=== PATIENT | female | born 1940 | race Caucasian/White ===

== ENCOUNTER → 2018-02-18 14:44 | Outpatient (CLI) | payer MEDICARE, OTHER, SELFPAY ==
[2018-02-18 15:05] LABS: Mucous, Urine 0 SEEN /hpf (<or=2+)
[2018-02-18 16:01] LABS: Color, Urine Yellow (Yellow); Glucose, Dipstick Normal (Normal); Ketone-Dipstick Negative (Negative); Leukocyte Esterase-Dipstick 500 /ul (Negative); Nitrite-Dipstick Positive (Negative); Occult Blood-Urine 10 /ul (Negative); Protein-Dipstick Negative (Negative); Urine Bilirubin Dipstick Negative (Negative); Urine Clarity Sl. Cloudy (Clear); Urine Urobilinogen Normal (Normal)
[2018-02-18 16:30] LABS: Bacteria 2+ /hpf (None Seen); Red Blood Cells-Urine 0-5 SEEN /hpf (0-5); Squamous Epithelial Cells - UA 0-5 SEEN /hpf (5-10); White Blood Cells 25-50 SEEN /hpf (0-5)
[2018-02-18 18:15] LABS: ALB/GLOB Ratio 0.9 RATIO (0.9-2.4); AST(SGOT) 17 U/L (15-37); Alanine Aminotransfer ALT/SGPT 16 U/L (13-56); Albumin, Serum 3.6 g/dL (3.2-5.0); Alkaline Phosphatase 96 U/L (45-117); Anion Gap 5 (5-15); BUN 27 mg/dL (7-18); BUN/Creat Ratio 20.9 RATIO (10-20); Calcium,Total 8.8 mg/dL (8.5-10.1); Chloride 106 mmol/L (98-107); Creatinine, Serum 1.29 mg/dL (0.55-1.02); EST Glomerular Filtration Rate 42 mL/min (>60); Est Glom Filt Rate - Afr Amer 51 mL/min (>60); Glucose 91 mg/dL (74-106); Potassium 4.3 mmol/L (3.5-5.1); Protein, Total 7.6 g/dL (6.4-8.2); Sodium Level 140 mmol/L (136-145)
== END ==
PROVIDERS: Visit Provider Obstetrics & Gynecology
DX: R35.1 Nocturia (principal)
CPT/HCPCS: 36415; 80053; 81001

== ENCOUNTER → 2018-02-21 16:18 | Outpatient (CLI) | payer MEDICARE, OTHER, SELFPAY | PROVIDERS: Visit Provider Obstetrics & Gynecology | DX: R30.0 Dysuria (principal) | CPT/HCPCS: 87086; 87088; 87186 ==

== ENCOUNTER → 2018-04-15 14:30 | Outpatient (CLI) | payer MEDICARE, OTHER, SELFPAY ==
--- NOTE | 2018-04-15 14:30 | DT_ITS ---
This patient was seen during an EMR downtime April 14, 2018 - April 21, 2018. This patient may have a combination of paper and electronic documentation or all paper documentation. All documentation is viewable within the e-chart portion of [facility] for each patient visit.
--- NOTE | 2018-04-15 14:30 | DT_ITS ---
This patient was seen during an EMR downtime April 14, 2018 - April 21, 2018. This patient may have a combination of paper and electronic documentation or all paper documentation. All documentation is viewable within the e-chart portion of [facility] for each patient visit.
== END ==
PROVIDERS: Family Provider Family Medicine; PCP Family Medicine; Visit Provider Obstetrics & Gynecology
DX: N39.0 Urinary tract infection, site not specified (principal)
CPT/HCPCS: 87086; 87088; 87186

== ENCOUNTER → 2018-08-22 12:05 | Outpatient (CLI) | payer MEDICARE, OTHER, SELFPAY ==
[2018-08-22 12:09] LABS: Lyme Ab Screen Interpretation REF LAB
[2018-08-22 14:07] LABS: Absolute Lymphocyte Count 1.11 X10^3/ul (0.83-4.51); Absolute Neutrophil Count 3.5 X10^3/uL (2.0-7.7); Basophil# 0.02 X10^3/uL; Basophil% 0.4 % (0-1); Eosinophil# 0.03 X10^3/uL; Eosinophils% 0.6 % (0-5); Hematocrit 40.8 % (37-47); Hemoglobin 13.2 g/dl (12.0-15.0); Lymphocyte # 1.11 X10^3/ul (4.0); Lymphocyte % 22.1 % (19-41); Mean Corp Hgb Conc 32.4 g/gl (32-36); Mean Corpuscular Hgb 29.8 pg (27.0-32.0); Mean Corpuscular Volume 92.1 fL (81-99); Mean Platelet Vol. 10.8 fl (6.2-12.0); Monocyte# 0.41 X10^3/uL; Monocyte% 8.2 % (0-10); Neutrophil # 3.45 X10^3/uL (2.7-7.7); Neutrophil % 68.5 % (47-70); Platelet Count 222 K/mm3 (150-450); RBC Distribution Width CV 13.1 % (11.6-14.6); RBC Distribution Width SD 43.7 fl (35.1-43.9); Red Blood Count 4.43 M/mm3 (4.2-5.4)
[2018-08-22 14:08] LABS: POSITIVE COUNT NO; POSITIVE DIFFERENTIAL NO; POSITIVE MORPHOLOGY NO
[2018-08-22 14:31] LABS: Vitamin B12 470 pg/mL (211-911); Vitamin D,25 Hydroxy 105.6 ng/mL (29.95-100.01)
[2018-08-22 14:33] LABS: ALB/GLOB Ratio 0.9 RATIO (0.9-2.4); AST(SGOT) 23 U/L (15-37); Alanine Aminotransfer ALT/SGPT 20 U/L (13-56); Albumin, Serum 3.8 g/dL (3.2-5.0); Alkaline Phosphatase 85 U/L (45-117); Anion Gap 8 (5-15); BUN 33 mg/dL (7-18); BUN/Creat Ratio 13.5 RATIO (10-20); Calcium,Total 8.6 mg/dL (8.5-10.1); Chloride 104 mmol/L (98-107); Creatinine, Serum 2.45 mg/dL (0.55-1.02); EST Glomerular Filtration Rate 20 mL/min (>60); Est Glom Filt Rate - Afr Amer 24 mL/min (>60); Globulin 4.2 g/dL (2.2-4.2); Glucose 98 mg/dL (74-106); Potassium 4.9 mmol/L (3.5-5.1); Sodium Level 136 mmol/L (136-145); Thyroid Stim Hormone (TSH) 1.66 uIU/mL (0.358-3.74)
[2018-08-29 09:48] LABS: Lyme Scn Total Ab w/Rflx 1.03 ISR (0.00-0.90)
== END ==
PROVIDERS: Family Provider Family Medicine; PCP Family Medicine; Referring Provider Family Medicine; Visit Provider Family Medicine
DX: R53.83 Other fatigue (principal); R21 Rash and other nonspecific skin eruption
CPT/HCPCS: 36415; 80053; 82306; 82607; 84443; 85025; 86618

== ENCOUNTER → 2018-08-25 10:11 | Outpatient (CLI) | payer MEDICARE, OTHER, SELFPAY ==
[2018-08-25 12:56] LABS: Anion Gap 9 (5-15); BUN 35 mg/dL (7-18); BUN/Creat Ratio 18.4 RATIO (10-20); Calcium,Total 9.3 mg/dL (8.5-10.1); Chloride 102 mmol/L (98-107); EST Glomerular Filtration Rate 27 mL/min (>60); Est Glom Filt Rate - Afr Amer 33 mL/min (>60); Glucose 110 mg/dL (74-106); Potassium 4.3 mmol/L (3.5-5.1); Sodium Level 137 mmol/L (136-145)
== END ==
PROVIDERS: Family Provider Family Medicine; PCP Family Medicine; Referring Provider Family Medicine; Visit Provider Family Medicine
DX: R94.4 Abnormal results of kidney function studies (principal)
CPT/HCPCS: 36415; 80048

== ENCOUNTER → 2018-08-27 08:28 | Outpatient (CLI) | payer MEDICARE, OTHER, SELFPAY ==
--- NOTE | 2018-08-27 08:31 | ECHOD_ITS ---
Reason For Study: Cardiomyopathy Procedure This was a 2D Doppler, Color Flow transthoracic echocardiogram. Exam performed in department. Left Ventricle Normal LV size. The estimated ejection fraction is 40 %. Mild to moderate global left ventricular systolic dysfunction. Stage 1 diastolic dysfunction. Compared to previous study, the left ventricular systolic function has worsened.. No regional wall motion abnormalities noted. Right Ventricle Normal RV size. Normal systolic function. Atria Normal left atrium. Normal right atrium. Mitral Valve Normal mitral valve. Mild (1+) eccentric mitral valve insufficiency. Tricuspid Valve Normal tricuspid valve. Mild (1+) tricuspid valve insufficiency. Pulmonary artery systolic pressure is 35 mmHg. Aortic Valve Normal aortic valve. Trisinus/trileaflet aortic valve. Pulmonic Valve Normal pulmonic valve. Great Vessels Normal aortic root. The pulmonary artery is normal size. Normal inferior vena cava. Pericardium/Pleural No pericardial effusion. MMode/2D Measurements & Calculations LVIDd: 4.0 cm IVSd: 0.94 cm Ao root diam: 3.3 cm LVIDs: 3.1 cm LVPWd: 0.90 cm LA dimension: 3.1 cm RVDd: 3.3 cm FS: 22.8 % LAV(MOD-bp): 34.6 ml LVAd ap4: 22.8 cm2 SV(MOD-sp4): 26.0 ml LAV(MOD-bp) Indexed: 22.0 ml/m2 EDV(MOD-sp4): 61.7 ml LAV(MOD-sp2): 30.8 ml EDV(sp4-el): 63.8 ml LAV(MOD-sp4): 32.0 ml LVAs ap4: 16.0 cm2 ESV(MOD-sp4): 35.8 ml ESV(sp4-el): 36.5 ml EF(MOD-sp4): 42.1 % EF(sp4-el): 42.8 % SV(sp4-el): 27.3 ml LA A4 area: 13.7 cm2 RA A4 area: 12.2 cm2 Time Measurements MV dec time: 0.35 sec Doppler Measurements & Calculations MV E max eric: 44.8 cm/sec Lat Peak E' Eric: 4.2 cm/sec Med Peak E' Eric: 4.5 cm/sec MV A max eric: 85.2 cm/sec E/E' lat: 10.7 E/E' med: 10.1 MV E/A: 0.53 MV V2 max: 82.2 cm/sec MV P1/2t max eric: 46.9 cm/sec Ao V2 max: 80.4 cm/sec MV max P.7 mmHg MV P1/2t: 101.7 msec Ao max P.6 mmHg MV V2 mean: 35.7 cm/sec MV dec slope: 135.0 cm/sec2 Ao V2 mean: 57.9 cm/sec MV mean P.62 mmHg MVA(P1/2t): 2.2 cm2 Ao mean P.5 mmHg MV V2 VTI: 24.4 cm Ao V2 VTI: 18.1 cm LV V1 max: 79.6 cm/sec PA V2 max: 55.6 cm/sec PI dec slope: 122.5 cm/sec2 LV V1 max P.5 mmHg LV V1 mean P.1 mmHg LV V1 mean: 47.5 cm/sec LV V1 VTI: 16.8 cm TR max eric: 279.3 cm/sec TR max P.2 mmHg Interpretation Summary Normal LV size. The estimated ejection fraction is 40 %. Mild to moderate global left ventricular systolic dysfunction. Mild (1+) eccentric mitral valve insufficiency. Mild (1+) tricuspid valve insufficiency. Stage 1 diastolic dysfunction. Compared to previous study, the left ventricular systolic function has worsened.. Ordering Physician: Venkatesh Mitchell Referring Physician: Venkatesh Cox Performed By: David Jean RCS
== END ==
PROVIDERS: Family Provider Family Medicine; PCP Family Medicine; Referring Provider Family Medicine; Visit Provider Family Medicine
DX: R55 Syncope and collapse (principal); I42.9 Cardiomyopathy, unspecified
CPT/HCPCS: 93306

== ENCOUNTER → 2018-10-24 10:22 | Outpatient (CLI) | payer MEDICARE, OTHER, SELFPAY ==
[2018-10-24 14:06] LABS: Anion Gap 8 (5-15); BUN 22 mg/dL (7-18); BUN/Creat Ratio 22.2 RATIO (10-20); Calcium,Total 8.6 mg/dL (8.5-10.1); Chloride 105 mmol/L (98-107); Creatinine, Serum 0.99 mg/dL (0.55-1.02); EST Glomerular Filtration Rate 58 mL/min (>60); Est Glom Filt Rate - Afr Amer 70 mL/min (>60); Glucose 85 mg/dL (74-106); Potassium 3.7 mmol/L (3.5-5.1); Sodium Level 141 mmol/L (136-145)
[2018-10-24 14:09] LABS: Vitamin D,25 Hydroxy 73.1 ng/mL (29.95-100.01)
--- OUTSIDE RECORDS SUMMARY | 2018-12-10 01:20 | XMS RPT_ITS ---
:1940 Author Organization [facility] Care Team Providers Name Role Phone Venkatesh Cox Attending Unavailable Venkatesh Cox Referring Unavailable Venkatesh Cox Primary Care Unavailable Melissa Fine Attending Unavailable Melissa Fine Attending Unavailable Melissa Fine Attending Unavailable Melissa Fine Referring Unavailable Venkatesh Cox Primary Care Unavailable Venkatesh Mitchell Attending Unavailable Venkatesh Mitchell Referring Unavailable Venkatesh Cox Primary Care Unavailable Venkatesh Mitchell Attending Unavailable Venkatesh Mitchell Referring Unavailable Venkatesh Cox Primary Care Unavailable Venkatesh Mitchell Attending Unavailable Venkatesh Mitchell Referring Unavailable Venkatesh Cox Primary Care Unavailable Jona Eddy Attending Unavailable Venkatesh Mitchell Referring Unavailable PROBLEMS PROBLEMS DATE TYPE CONDITION / CODE ATTENDING STATUS SOURCE 05/07/2018 Unknown N39.0 - Urinary Melissa Fine [employer] tract infection, Community site not Hospital specified / Repository N39.0(ICD-10) 02/21/2018 Unknown R30.0 - Dysuria Melissa Fine [employer] / R30.0(ICD-10) [facility] Repository 02/18/2018 Unknown R35.1 - Nocturia Melissa Fine [employer] / R35.1(ICD-10) [facility] Repository PROCEDURES PROCEDURES No Procedure Records FoundRESULTS RESULTS BASIC METABOLIC Collected: 10/24/2018 Status: F Source: [place] PROFILE (BMP) 10:27 AM [facility] REPOSITORY TYPE CODE TESTS RESULT OUT OF RANGE REFERENCE UNITS LAB L501.0100 74-106 mg/dL Normal GLU 85 Result Comment: Please note revised GLUCOSE reference range effective 2017. LAB L501.1000 7-18 mg/dL High BUN 22 LAB L501.1100 0.55-1.02 mg/dL Normal CREAT,SERUM 0.99 Result Comment: The validity of the calculated GFR AND GFRAA in patients over 70 years has not been determined. Clinical correlation is essential. LAB L501.1110 >60 mL/min Low EST GFR 58 Result Comment: Non- GFR Calc LAB L501.1115 >60 mL/min Normal EST GFR - AA 70 Result Comment: GFR Calc LAB L501.1300 10-20 RATIO High BUN/CRE 22.2 LAB L501.2200 8.5-10.1 mg/dL CA Normal 8.6 LAB L501.5300 136-145 mmol/L NA Normal 141 LAB L501.5600 3.5-5.1 mmol/L K Normal 3.7 LAB L501.5900 98-107 mmol/L CL Normal 105 LAB L501.6100 21.0-32.0 mmol/L Normal CO2 28.0 LAB L501.6200 5-15 Normal GAP 8 Performed By: #### L500.2500, L506.1000 #### [facility] [address] [place], [address] VITAMIN D,25 HYDROXY Collected: 10/24/2018 Status: F Source: [place] 10:27 AM [facility] REPOSITORY TYPE CODE TESTS RESULT OUT OF RANGE REFERENCE UNITS LAB L506.1000 29.95-100.01 ng/mL Normal Vitamin D 73.1 25-OH Result Comment: Vitamin D 25(OH) Status Range Deficiency <20 ng/mL (50nmol/L) Insuffciency 20 - 30 ng/mL (50 - 75 nmol/L) Sufficiency 30 - 100 ng/mL (75 - 250 nmol/L) Toxicity >100 ng/mL (>250 nmol/L) Performed By: #### L500.2500, L506.1000 #### [facility] [address] [place], [address] ECHOCARDIOGRAM COMPLETE Observed: 08/27/2018 Status: F Source: [place] 10:37 AM [facility] REPOSITORY [facility] Cardiovascular Services [address] [place] [address] Echo Complete 08/27/18 0904 MR#: [id number] Acct: [id number] Name: MONTSERRAT WEBB Rep #: [id number] : 1940 78 From: Jona Eddy MD Attending Dr: Venkatesh Mitchell MD Status: REG CLI Ordering Dr: Venkatesh Mitchell MD Date: 08/27/18 Location: [facility] Sex: F C Admitted: Reason For Study: Cardiomyopathy Procedure This was a 2D Doppler, Color Flow transthoracic echocardiogram. Exam performed in department. Left Ventricle Normal LV size. The estimated ejection fraction is 40 %. Mild to moderate global left ventricular systolic dysfunction. Stage 1 diastolic dysfunction. Compared to previous study, the left ventricular systolic function has worsened.. No regional wall motion abnormalities noted. Right Ventricle Normal RV size. Normal systolic function. Atria Normal left atrium. Normal right atrium. Mitral Valve Normal mitral valve. Mild (1+) eccentric mitral valve insufficiency. Tricuspid Valve Normal tricuspid valve. Mild (1+) tricuspid valve insufficiency. Pulmonary artery systolic pressure is 35 mmHg. Aortic Valve Normal aortic valve. Trisinus/trileaflet aortic valve. Pulmonic Valve Normal pulmonic valve. Great Vessels Normal aortic root. The pulmonary artery is normal size. Normal inferior vena cava. Pericardium/Pleural No pericardial effusion. MMode/2D Measurements AND Calculations LVIDd: 4.0 cm IVSd: 0.94 cm Ao root diam: 3.3 cm LVIDs: 3.1 cm LVPWd: 0.90 cm LA dimension: 3.1 cm RVDd: 3.3 cm FS: 22.8 % LAV(MOD-bp): 34.6 ml LVAd ap4: 22.8 cm2 SV(MOD-sp4): 26.0 ml LAV(MOD-bp) Indexed: 22.0 ml/m2 EDV(MOD-sp4): 61.7 ml LAV(MOD-sp2): 30.8 ml EDV(sp4-el): 63.8 ml LAV(MOD-sp4): 32.0 ml LVAs ap4: 16.0 cm2 ESV(MOD-sp4): 35.8 ml ESV(sp4-el): 36.5 ml EF(MOD-sp4): 42.1 % EF(sp4-el): 42.8 % SV(sp4-el): 27.3 ml LA A4 area: 13.7 cm2 RA A4 area: 12.2 cm2 Time Measurements MV dec time: 0.35 sec Doppler Measurements AND Calculations MV E max eric: 44.8 cm/sec Lat Peak E' Eric: 4.2 cm/sec Med Peak E' Eric: 4.5 cm/sec MV A max eric: 85.2 cm/sec E/E' lat: 10.7 E/E' med: 10.1 MV E/A: 0.53 MV V2 max: 82.2 cm/sec MV P1/2t max eric: 46.9 cm/sec Ao V2 max: 80.4 cm/sec MV max P.7 mmHg MV P1/2t: 101.7 msec Ao max P.6 mmHg MV V2 mean: 35.7 cm/sec MV dec slope: 135.0 cm/sec2 Ao V2 mean: 57.9 cm/sec MV mean P.62 mmHg MVA(P1/2t): 2.2 cm2 Ao mean P.5 mmHg MV V2 VTI: 24.4 cm Ao V2 VTI: 18.1 cm LV V1 max: 79.6 cm/sec PA V2 max: 55.6 cm/sec PI dec slope: 122.5 cm/sec2 LV V1 max P.5 mmHg LV V1 mean P.1 mmHg LV V1 mean: 47.5 cm/sec LV V1 VTI: 16.8 cm TR max eric: 279.3 cm/sec TR max P.2 mmHg Interpretation Summary Normal LV size. The estimated ejection fraction is 40 %. Mild to moderate global left ventricular systolic dysfunction. Mild (1+) eccentric mitral valve insufficiency. Mild (1+) tricuspid valve insufficiency. Stage 1 diastolic dysfunction. Compared to previous study, the left ventricular systolic function has worsened.. 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 criteria. Please note revised GLUCOSE reference range effective 2017. LAB L501.1000 7-18 mg/dL High BUN 35 LAB L501.1100 0.55-1.02 mg/dL High CREAT,SERUM 1.90 Result Comment: The validity of the calculated GFR AND GFRAA in patients over 70 years has not been determined. Clinical correlation is essential. LAB L501.1110 >60 mL/min Low EST GFR 27 Result Comment: Non- GFR Calc LAB L501.1115 >60 mL/min Low EST GFR - AA 33 Result Comment: GFR Calc LAB L501.1300 10-20 RATIO Normal BUN/CRE 18.4 LAB L501.2200 8.5-10.1 mg/dL CA Normal 9.3 LAB L501.5300 136-145 mmol/L NA Normal 137 LAB L501.5600 3.5-5.1 mmol/L K Normal 4.3 LAB L501.5900 98-107 mmol/L CL Normal 102 LAB L501.6100 21.0-32.0 mmol/L Normal CO2 26.0 LAB L501.6200 5-15 Normal GAP 9 Performed By: #### L500.2500 #### [facility] [address] [place], [address] CBC W/DIFF, AUTOMATED Collected: 08/22/2018 Status: F Source: [place] 12:07 PM [facility] REPOSITORY TYPE CODE TESTS RESULT OUT OF RANGE REFERENCE UNITS LAB L100.1000 4.4-11.0 K/mm3 Normal WBC 5.0 LAB L100.1200 4.2-5.4 M/mm3 Normal RBC 4.43 LAB L100.1300 12.0-15.0 g/dl Normal HGB 13.2 LAB L100.1400 37-47 % Normal HCT 40.8 LAB L100.1500 81-99 fL Normal MCV 92.1 LAB L100.1600 27.0-32.0 pg Normal MCH 29.8 LAB L100.1700 32-36 g/gl Normal MCHC 32.4 LAB L100.1810 11.6-14.6 % Normal RDW CV 13.1 LAB L100.1820 35.1-43.9 fl Normal RDW SD 43.7 LAB L100.1900 150-450 K/mm3 Normal PLT 222 LAB L100.2000 6.2-12.0 fl Normal MPV 10.8 LAB L100.2100 47-70 % Normal NEUT% 68.5 LAB L100.2200 19-41 % Normal LY% 22.1 LAB L100.2300 0-10 % Normal MONO% 8.2 LAB L100.2400 0-5 % Normal EO% 0.6 LAB L100.2500 0-1 % Normal BASO% 0.4 LAB L100.2550 0.0-0.9 % Normal IM GRAN % 0.200 Result Comment: IG% - Immature Granulocytes (promyelocytes, myelocytes and metamyelocytes) > 1% indicates that a LEFT SHIFT is Present. LAB L100.2620 2.0-7.7 X10 3/uL Normal Absolute Neut 3.5 LAB L100.2720 0.83-4.51 X10 3/ul Normal Absolute Lymph 1.11 Performed By: #### L100.0100, L503.0105, L506.1000, L500.4050, L501.9520 #### [facility] [address] [place], [address] #### L7000.5300 #### [facility] (refer to report for specific site) refer to report for address and phone number VITAMIN B12 Collected: 08/22/2018 Status: F Source: [place] 12:07 PM [facility] REPOSITORY TYPE CODE TESTS RESULT OUT OF RANGE REFERENCE UNITS LAB L503.0105 211-911 pg/mL Normal Vitamin B12 470 Performed By: #### L100.0100, L503.0105, L506.1000, L500.4050, L501.9520 #### [facility] [address] [facility] [address] [place], [address] #### L7000.5300 #### [facility] (refer to report for specific site) refer to report for address and phone number VITAMIN D,25 HYDROXY Collected: 08/22/2018 Status: F Source: [place] 12:07 PM [facility] REPOSITORY TYPE CODE TESTS RESULT OUT OF REFERENCE UNITS RANGE LAB L506.1000 29.95-100.01 ng/mL High Vitamin D 105.6 25-OH Result Comment: Vitamin D 25(OH) Status Range Deficiency <20 ng/mL (50nmol/L) Insuffciency 20 - 30 ng/mL (50 - 75 nmol/L) Sufficiency 30 - 100 ng/mL (75 - 250 nmol/L) Toxicity >100 ng/mL (>250 nmol/L) Evidence suggests that patients undergoing fluorescein dye angiography can retain small amounts of fluorescein in the body for up to 48 to 72 hours post-treatment. In the cases of patients with renal insufficiency, retention could be much longer. Samples containing fluorescein can produce falsely elevated values when tested with the Advia Centaur Vitamin D assay. With fluorescein interference, observed Vitamin D values can be as high as >150 ng/mL (>375 nmol/L). Samples should be resubmitted post fluorescein clearance to ensure there is no interference with Vitamin D test results. Performed By: #### L100.0100, L503.0105, L506.1000, L500.4050, L501.9520 #### [facility] [address] [place], [place], [address] #### L7000.5300 #### [facility] (refer to report for specific site) refer to report for address and phone number COMPREHENSIVE METABOLIC Collected: 08/22/2018 Status: F Source: [facility] 12:07 PM [facility] REPOSITORY TYPE CODE TESTS RESULT OUT OF RANGE REFERENCE UNITS LAB L501.0100 74-106 mg/dL Normal GLU 98 Result Comment: Please note revised GLUCOSE reference range effective 2017. LAB L501.1000 7-18 mg/dL High BUN 33 LAB L501.1100 0.55-1.02 mg/dL High CREAT,SERUM 2.45 Result Comment: The validity of the calculated GFR AND GFRAA in patients over 70 years has not been determined. Clinical correlation is essential. LAB L501.1110 >60 mL/min Low EST GFR 20 Result Comment: Non- GFR Calc LAB L501.1115 >60 mL/min Low EST GFR - AA 24 Result Comment: GFR Calc LAB L501.1300 10-20 RATIO Normal BUN/CRE 13.5 LAB L501.1500 6.4-8.2 g/dL T Normal PROT 8.0 LAB L501.1800 3.2-5.0 g/dL Normal ALB 3.8 LAB L501.1950 2.2-4.2 g/dL Normal GLOB 4.2 LAB L501.2000 0.9-2.4 RATIO Normal A/G 0.9 LAB L501.2200 8.5-10.1 mg/dL CA Normal 8.6 LAB L501.4100 15-37 U/L Normal AST 23 LAB L501.4305 45-117 U/L Normal ALK P 85 LAB L501.4405 13-56 U/L Normal ALT 20 LAB L501.4600 0.20-1.00 mg/dL T Normal BILI 0.40 LAB L501.5300 136-145 mmol/L NA Normal 136 LAB L501.5600 3.5-5.1 mmol/L K Normal 4.9 LAB L501.5900 98-107 mmol/L CL Normal 104 LAB L501.6100 21.0-32.0 mmol/L Normal CO2 24.0 LAB L501.6200 5-15 Normal GAP 8 Performed By: #### L100.0100, L503.0105, L506.1000, L500.4050, L501.9520 #### [facility] [address] [place], [place], [id number] #### L7000.5300 #### [facility] (refer to report for specific site) refer to report for address and phone number THYROID STIM HORMONE Collected: 08/22/2018 Status: F Source: [place] ([facility]) 12:07 PM [facility] REPOSITORY TYPE CODE TESTS RESULT OUT OF RANGE REFERENCE UNITS LAB L501.9520 0.358-3.74 uIU/mL Normal TSH 1.66 Performed By: #### L100.0100, L503.0105, L506.1000, L500.4050, L501.9520 #### [facility] [address], [place], [id number] #### L7000.5300 #### [facility] (refer to report for specific site) refer to report for address and phone number LYME SCREEN W/REFLEX Collected: 08/22/2018 Status: F Source: [place] WB 12:07 PM [facility] REPOSITORY TYPE CODE TESTS RESULT OUT OF RANGE REFERENCE UNITS LAB L7000.5400 0.00-0.90 ISR High LYME SCN 1.03 AB Result Comment: Negative <0.91 Equivocal 0.91 - 1.09 Positive >1.09 LAB L7000.5500 Normal LYME SCN REF INTERP LAB Performed By: #### L100.0100, L503.0105, L506.1000, L500.4050, L501.9520 #### [facility] [address] [place], [place], [id number] #### L7000.5300 #### [facility] (refer to report for specific site) refer to report for address and phone number DOWNTIME REPORT Observed: 05/01/2018 Status: F Source: [place] 2:46 PM [facility] REPOSITORY [facility] Medical Records Department [address] [place] [address] Downtime Report MR#: [id number] Acct: [id number] Name: MONTSERRAT WEBB Rep #: [id number] : 1940 77 From: Daniel Cox PCP: Venkatesh Cox MD Status: REG CLI This patient was seen during an EMR downtime April 14, 2018 - April 21, 2018. This patient may have a combination of paper and electronic documentation or all paper documentation. All documentation is viewable within the e-chart portion of [facility] for each patient visit. DOWNTIME REPORT Observed: 05/01/2018 Status: F Source: [place] 2:32 PM [facility] REPOSITORY [facility] Medical Records Department [address] [place] [address] Downtime Report MR#: [id number] Acct: [id number] Name: MONTSERRAT WEBB Rep #: [id number] : 1940 77 From: Daniel Cox PCP: Venkatesh Cox MD Status: REG CLI This patient was seen during an EMR downtime April 14, 2018 - April 21, 2018. This patient may have a combination of paper and electronic documentation or all paper documentation. All documentation is viewable within the e-chart portion of [facility] for each patient visit. Observed: 04/16/2018 Status: F Source: [place] CULTURE, URINE 2:30 PM [facility] REPOSITORY RESULT(S) PREVIOUSLY REPORTED ON MANUAL REQUISITION DURING DOWNTIME. Urine Culture Copy of report sent to Infection Control Printer [id number] 04/18/18 9519 [address]. RESULTS FAXED TO DR FINE 04/17/18 ORGANISM 1: Presumptive E. coli [place] Count >100,000 MARKER ESBL producing Organism Presumptive E. coli: REACTION Amoxacillin/Clavulanic Acid $ 16 I Ampicillin $ >=32 R Ampicillin/Sulbactam $ >=32 R Cefazolin $ >=64 R Cefepime $ >=64 R Ceftriaxone $ >=64 R Ciprofloxacin $ 1 S ESBL Positive + Ertapenim $$$ <=0.5 S Gentamicin $ <=1 S Imipenem *NF <=0.25 S Levofloxacin $ 1 S Piperacillin/Tazobactam $$ <=4 S Tobramycin $ <=1 S Trimethoprim/Sulfametho $ >=320 R (NF) indicates non-formulary drug at [facility]. Approval by Infectious Disease Specialist required before non-formulary drugs may be ordered and/or dispensed. Performed By: #### M100.0650 #### [facility] [address] [place], [address] Observed: 02/21/2018 Status: F Source: [place] CULTURE, URINE 1:00 PM [facility] REPOSITORY Urine Culture ORGANISM 1: Presumptive E. coli [place] Count >100,000 Presumptive E. coli: REACTION Amoxacillin/Clavulanic Acid $ 4 S Ampicillin $ 4 S Ampicillin/Sulbactam $ <=2 S Cefazolin $ <=4 S Cefepime $ <=1 S Ceftriaxone $ <=1 S Ciprofloxacin $ <=0.25 S ESBL - Ertapenim $$$ <=0.5 S Gentamicin $ <=1 S Imipenem *NF <=0.25 S Levofloxacin $ <=0.12 S Piperacillin/Tazobactam $$ <=4 S Tobramycin $ <=1 S Trimethoprim/Sulfametho $ <=20 S (NF) indicates non-formulary drug at [facility]. Approval by Infectious Disease Specialist required before non-formulary drugs may be ordered and/or dispensed. Performed By: #### M100.0650 #### [facility] [address] [facility] [place], [address] URINALYSIS, COMPLETE Collected: 02/18/2018 Status: F Source: [place] 3:03 PM [facility] REPOSITORY Order Comment: Comments: CULTURE ONLY IF INDICATED PER ORDER. How was Urine Obtained? CLEAN CATCH TYPE CODE TESTS RESULT OUT OF RANGE REFERENCE UNITS LAB L400.3000 Yellow COLOR Normal Yellow LAB L400.3050 Clear Normal CLARITY Sl. Cloudy LAB L400.3200 Normal mg/dl Normal GLUCOSE, UR Normal LAB L400.3300 Negative mg/dL Normal BILIRUBIN URINE Negative LAB L400.3400 Negative mg/dl Normal KETONE UR Negative LAB L400.3465 1.002-1.030 Normal SP.GR. DIPSTX 1.010 LAB L400.3550 5.0 - 8.0 pH UR Normal 6.0 LAB L400.3600 Negative mg/dl PROT Normal DIPSTX Negative LAB L400.3700 Normal mg/dl Normal UROBILI Normal LAB L400.3750 Negative High NITRITE UR Positive LAB L400.3780 Negative /ul High 10 OCCULT BLOOD-UR LAB L400.3800 Negative /ul High LEUK ESTERASE 500 LAB L400.4050 0-5 /hpf WBC Normal 25-50 SEEN LAB L400.4100 0-5 /hpf Normal RBC-UA 0-5 SEEN LAB L400.4150 5-10 /hpf SQUAM Normal EPI 0-5 SEEN LAB L400.4300 None Seen /hpf 2+ Normal BACTERIA LAB L400.4350 <or=2+ /hpf 0 Normal MUCUS, URINE SEEN Performed By: #### L400.0001 #### [facility] [address] [place], [place], [address] COMPREHENSIVE METABOLIC Collected: 02/18/2018 Status: F Source: [facility] 2:55 PM [facility] REPOSITORY TYPE CODE TESTS RESULT OUT OF RANGE REFERENCE UNITS LAB L501.0100 74-106 mg/dL Normal GLU 91 Result Comment: Please note revised GLUCOSE reference range effective 2017. LAB L501.1000 7-18 mg/dL High BUN 27 LAB L501.1100 0.55-1.02 mg/dL High CREAT,SERUM 1.29 Result Comment: The validity of the calculated GFR AND GFRAA in patients over 70 years has not been determined. Clinical correlation is essential. LAB L501.1110 >60 mL/min Low EST GFR 42 Result Comment: Non- GFR Calc LAB L501.1115 >60 mL/min Low EST GFR - AA 51 Result Comment: GFR Calc LAB L501.1300 10-20 RATIO High BUN/CRE 20.9 LAB L501.1500 6.4-8.2 g/dL T Normal PROT 7.6 LAB L501.1800 3.2-5.0 g/dL Normal ALB 3.6 LAB L501.1950 2.2-4.2 g/dL Normal GLOB 4.0 LAB L501.2000 0.9-2.4 RATIO Normal A/G 0.9 LAB L501.2200 8.5-10.1 mg/dL CA Normal 8.8 LAB L501.4100 15-37 U/L Normal AST 17 LAB L501.4305 45-117 U/L Normal ALK P 96 LAB L501.4405 13-56 U/L Normal ALT 16 Result Comment: Please note revised ALT reference range effective 2017. LAB L501.4600 0.20-1.00 mg/dL Normal T BILI 0.40 LAB L501.5300 136-145 mmol/L Normal NA 140 LAB L501.5600 3.5-5.1 mmol/L Normal K 4.3 LAB L501.5900 98-107 mmol/L Normal CL 106 LAB L501.6100 21.0-32.0 mmol/L Normal CO2 29.0 LAB L501.6200 5-15 Normal GAP 5 Performed By: #### L500.4050 #### [facility] [address] [place], [address] PROGRESS Observed: 02/16/2018 Status: COMPLETED Source: [place] 8:58 AM [facility] REPOSITORY HNO ID: [id number] Author: Nadira (Almas) Older Service: (none) Author Type: Nurse Practitioner Type: Progress Notes Filed: 02/16/2018 9:57 AM Note Text: CC: Patient presents with: Eye Problem: Swelling/redness under (left) eye x 1 day Rhinitis: x 1 day Cough: 2 days Fatigue: x 2 days HPI: Montserratkati Webb is a 77 year old female who presents to the office with complaint of respiratory symptoms for 2 days and swelling/redness left eye x 1 day. Symptoms are staying the same. Associated symptoms includes constant rhinorrhea, cough and fatigue. Left lower eye lid redness and swelling. Denies pain or visual changes. Denies sore throat, nasal congestion, facial pain/pressure, fever, wheezing and dyspnea. Treatments tried include nothing so far. Sick contacts: no. Seasonal/environmental allergies: Yes, seasonal The ROS is otherwise negative. The patient's pmh, medications, allergies, and past visits are reviewed. PHYSICAL EXAM: BP 128/82 Pulse 89 Temp 36.8 ?C (98.3 ?F) (Tympanic) Resp 17 Wt 54.9 kg (121 lb) SpO2 94% BMI 21.1 kg/m2 General appearance: tired/ill appearing, in no acute distress Head: Normocephalic Eyes: Stye with small pustule left lower eyelid near inner canthus. PERRLA, EOM's intact, conjunctiva pink and moist, no icterus, sclera white, non-injected. No drainage. Ears: Right ear: External ear/canal- Normal, TM - clear with good landmarks. Left ear: External ear/canal- Normal, TM - clear with good landmarks Nose: clear rhinorrhea, mucosa erythematous and swollen, no sinus tenderness. Oropharynx:No erythema, exudates or tonsillar hypertrophy. Neck:supple and positive findings: few small anterior cervical nodes Heart: Negative. RRR without obvious murmur, gallop, or rubs. No ectopy. Lungs: clear to auscultation, without rales or wheeze, good air exchange ASSESSMENT/PLAN: 1. Viral URI - ICD9: 465.9, ICD10: J06.9 (primary diagnosis) - Discussed viral etiology and rationale for treatment. - Symptomatic treatment with prn analgesia - Supportive care with fluids and rest - The patient may also use OTC antihistamines such as Benadryl. - Follow up in 5-7 days if symptoms persist or sooner if worsening of symptoms 2. Hordeolum externum of left lower eyelid - ICD9: 373.11, ICD10: H00.015 Warm compress 4 times a day Start Bacitracin eye ointment, see orders Follow-up with eye doctor in 2-3 days if no improvement Prescription instructions reviewed with patient as applicable. Potential red flag symptoms discussed with the patient. Reviewed appropriate action plan to take if red flag symptoms occur. Patient agreeable to treatment plan. Nadira Santiago APRN.ALMAS LEONARDOOV Observed: 02/16/2018 Status: COMPLETED Source: [place] 8:30 AM [facility] REPOSITORY Office Visit (WSTR) MONTSERRAT WEBB ([id number]) 1940 F Date Time Provider Department 02/16/18 8:30 AM OLDER, NADIRA (ALMAS) MICHELLE During your visit today, we recorded the following information about you: Temperature Pulse Respiration Blood pressure 98.3 degrees 89/minute 17/minute 128/82 Weight 54.9 kg Nadira Santiago APRN.CNP 02/16/2018 9:57 AM Signed CC: Patient presents with: Eye Problem: Swelling/redness under (left) eye x 1 day Rhinitis: x 1 day Cough: 2 days Fatigue: x 2 days HPI: Montserrat Webb is a 77 year old female who presents to the office with complaint of respiratory symptoms for 2 days and swelling/redness left eye x 1 day. Symptoms are staying the same. Associated symptoms includes constant rhinorrhea, cough and fatigue. Left lower eye lid redness and swelling. Denies pain or visual changes. Denies sore throat, nasal congestion, facial pain/pressure, fever, wheezing and dyspnea. Treatments tried include nothing so far. Sick contacts: no. Seasonal/environmental allergies: Yes, seasonal The ROS is otherwise negative. The patient's pmh, medications, allergies, and past visits are reviewed. PHYSICAL EXAM: BP 128/82 Pulse 89 Temp 36.8 ?C (98.3 ?F) (Tympanic) Resp 17 Wt 54.9 kg (121 lb) SpO2 94% BMI 21.1 kg/m2 General appearance: tired/ill appearing, in no acute distress Head: Normocephalic Eyes: Stye with small pustule left lower eyelid near inner canthus. PERRLA, EOM's intact, conjunctiva pink and moist, no icterus, sclera white, non-injected. No drainage. Ears: Right ear: External ear/canal- Normal, TM - clear with good landmarks. Left ear: External ear/canal- Normal, TM - clear with good landmarks Nose: clear rhinorrhea, mucosa erythematous and swollen, no sinus tenderness. Oropharynx:No erythema, exudates or tonsillar hypertrophy. Neck:supple and positive findings: few small anterior cervical nodes Heart: Negative. RRR without obvious murmur, gallop, or rubs. No ectopy. Lungs: clear to auscultation, without rales or wheeze, good air exchange ASSESSMENT/PLAN: 1. Viral URI - ICD9: 465.9, ICD10: J06.9 (primary diagnosis) - Discussed viral etiology and rationale for treatment. - Symptomatic treatment with prn analgesia - Supportive care with fluids and rest - The patient may also use OTC antihistamines such as Benadryl. - Follow up in 5-7 days if symptoms persist or sooner if worsening of symptoms 2. Hordeolum externum of left lower eyelid - ICD9: 373.11, ICD10: H00.015 Warm compress 4 times a day Start Bacitracin eye ointment, see orders Follow-up with eye doctor in 2-3 days if no improvement Prescription instructions reviewed with patient as applicable. Potential red flag symptoms discussed with the patient. Reviewed appropriate action plan to take if red flag symptoms occur. Patient agreeable to treatment plan. MAURIZIO Lopez APRN.CNP 02/16/2018 9:04 AM Signed Here is some cold and flu information to help ease your symptoms: 1.) Get more rest than you usually do - this will speed your recovery. If you push hard with your usual busy schedule, you will be sicker longer. 2.) Drink a lot of water - enough to make you urinate every 2-3 hours (your urine should be a light yellow color). This helps thin the phlegm and sooth the airways. Gatorade (G2) is less in sugar and replaces your electrolytes if not eating well. 3.) Run a cool mist humidifier in your bedroom on high with the door closed. This is a natural way to decongest, and it helps lessen scratchy throats, nasal stuffiness and coughs. 4.) For those without blood pressure concerns, take over the counter combination medication such as Tylenol cold and flu. Those with high blood pressure and not with prostate problems can try [id number] Coricidin HBP for congestion. 5) For nasal congestion, sinus pain/pressure: Nasal spray such as Flonase of Nasacort, available over the counter General information: * Green or yellow color does not mean you need an antibiotic; secretions can be green or yellow with viruses, such as the common cold * The average cold lasts 6-12 days. If you are not improving or are worsening by day 10 of symptoms follow up with the office Referring Provider: SELF [200] Allergies As of Date: 02/16/2018 (No Known Allergies) Date Reviewed: 02/16/2018 Reviewed by: Yessi [employer] - Fully Assessed Reason for Visit: Eye Problem [43] Cmt: Swelling/redness under (left) eye x 1 day Rhinitis [369] Cmt: x 1 day Cough [28] Cmt: 2 days Fatigue [46] Cmt: x 2 days Primary Visit Diagnosis:Viral URI [J06.9] Other Visit Diagnosis:Hordeolum externum of left lower eyelid [H00.015] Order(s):bacitracin ophthalmic ophthalmic ointmentUse 1 application in both eyes twice daily for 7 days.Disp: 1 TubeRfl: 0 Prescriptions as of 02/16/2018 Sig: ERGOCALCIFEROL (VITAMIN D2) 5* Take 1 capsule by mouth once * METOPROLOL TARTRATE 50 MG TAB* Take 1 tablet by mouth twice * LISINOPRIL 10 MG TABLET Take 1 tablet by mouth once d* BACITRACIN 500 UNIT/GRAM EYE * Use 1 application in both eye* Problem List As Of Date 02/16/2018 Noted Resolved 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] INVALID FOR* MALIGN NEOPL BREAST NOS [C50.919] INVALID FOR* FIT/ADJUST VASC CATHETER AFTERCARE [Z45.2] INVALID FOR* 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] INVALID FOR* ROSACEA [L71.9] INVALID FOR* SEBORRHEIC KERATOSIS NOS [L82.1] INVALID FOR* Inflamed seborrheic keratosis [L82.0] INVALID FOR*10/21/2012 VIRAL WARTS NOS [B07.9] INVALID FOR* SOLAR LENTIGENES///DYSCHROMIA OTHER [L81.9] INVALID FOR*10/21/2012 ACTINIC DAMAGE///CHR SOLAR SKIN DAMAGE NOS [L57*INVALID FOR*01/26/2013 ER+ (Estrogen Receptor Positive Status) [Z17.0] INVALID FOR* 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 [D*INVALID FOR* Actinic Keratosis (Premalignant AK) [L57.0] INVALID FOR* Tongue, Geographic [K14.1] INVALID FOR* Oral Submucosal Fibrosis/Tongue [K13.5] INVALID FOR* Lipoma: L forearm [D17.9] INVALID FOR* 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] INVALID FOR* Open wound site: R ear: probable infection [T1*INVALID FOR* Surgical wound infection [T81.4XXA] INVALID FOR* Pyoderma, unspecified [L08.0] INVALID FOR* 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 *INVALID FOR* Scar condition and fibrosis of skin [L90.5] INVALID FOR* Solar Lentigo//Solar Lentigines [L81.4] INVALID FOR* Actinic skin damage [L57.8] INVALID FOR* Vitamin D deficiency [E55.9] INVALID FOR* Irritated//Inflamed Seborrheic Keratosis [L82.0]INVALID FOR* Postinflammatory skin changes [R23.4] INVALID FOR* Tongue lesion [K14.8] INVALID FOR* Osteoporosis [M81.0] INVALID FOR* History of breast cancer in female [Z85.3] INVALID FOR* Other instructions from your clinician: Here is some cold and flu information to help ease your symptoms: 1.) Get more rest than you usually do - this will speed your recovery. If you push hard with your usual busy schedule, you will be sicker longer. 2.) Drink a lot of water - enough to make you urinate every 2-3 hours (your urine should be a light yellow color). This helps thin the phlegm and sooth the airways. Gatorade (G2) is less in sugar and replaces your electrolytes if not eating well. 3.) Run a cool mist humidifier in your bedroom on high with the door closed. This is a natural way to decongest, and it helps lessen scratchy throats, nasal stuffiness and coughs. 4.) For those without blood pressure concerns, take over the counter combination medication such as Tylenol cold and flu. Those with high blood pressure and not with prostate problems can try [id number] Coricidin HBP for congestion. 5) For nasal congestion, sinus pain/pressure: Nasal spray such as Flonase of Nasacort, available over the counter General information: * Green or yellow color does not mean you need an antibiotic; secretions can be green or yellow with viruses, such as the common cold * The average cold lasts 6-12 days. If you are not improving or are worsening by day 10 of symptoms follow up with the office Prescriptions ordered this encounter Disp Refills Start End BACITRACIN 500 UNIT/GRAM EYE OINTMENT 1 Tu* 0 02/16/2018 02/23/2018 Route: BOTH EYES Sig: Use 1 application in both eyes twice daily for 7 days. Encounter Status:Closed by NADIRA SANTIAGO CNP on 02/16/18 ALLERGIES ALLERGIES DATE TYPE / CODE NAME / CODE REACTION SEVERITY SOURCE 07/07/2017 Drug No Known Unknown [facility] Allergy/416 Allergies/T99004 Hospital 121289(SNOM 0388(RXNORM) Repository ED CT) Drug NO KNOWN [facility] Class/50639 ALLERGIES [address] [place] 1003(SNOMED Repository CT) ENCOUNTERS ENCOUNTERS ADMIT/DISCHARGE ACCOUNT ADMITTING ENCOUNTER LOCATION SOURCE NUMBER CLASS 10/24/2018 [id number] [facility] ing:MTLAB Repository 08/27/2018 [id number] [facility] ing:[facility]S Repository 08/27/2018 [id number] Ambulatory [facility]MS[facility] Repository 08/25/2018 [id number] Ambulatory [facility] Hospital ing:MTLAB Repository 08/22/2018 [id number] [facility] ing:MTLAB Repository 04/15/2018 [id number] [facility] ing:WOBLAB Repository 02/21/2018 [id number] [facility] ing:LABSPEC Repository 02/18/2018 [id number] Ambulatory [facility] ing:WOBLAB Repository 02/16/2018/02/19/20 [id number] Ambulatory [address] Repository PAYERS PAYERS ENCOUNTER GUARANTOR PAYER SUBSCRIBER SOURCE 10/24/2018 SHAWN Vogel [id number] Insurance:MEDICARE CHAPMANDOB: Formerly [facility] A [facility] [id number] Number: Repository [phone]: [phone] [id number] [phone] () Date:2018-10-24 10/24/2018 Secondary MONTSERRAT C Lela Insurance:GOVERNMENT CHAPMANDOB: Community PERSONNEL GRAFORD [id number] Hospital LIPolicy Number: Repository [id number] Date:[id number] [address] [place] [address] 86677YV: 10/24/2018 Tertiary NOT GIVENUNK Lela Insurance:SELF PAY [facility]: Effective Repository Date:2018-10-24 08/27/2018 SHAWN Guadarrama Primary [place] C Lela [id number] Insurance:MEDICARE CHAPMANDOB[facility] [id number] Number: Repository 147[address]Yvx: 330 [id number] [phone] () Date:2018-08-20 08/27/2018 Secondary MONTSERRAT C Beauty Insurance:GOVERNMENT CHAPMANDOB: Community PERSONNEL GRAFORD [id number] Hospital LIPolicy Number: Repository [id number] Date:[id number] [address] [address]BY: 08/27/2018 Tertiary NOT GIVENUNK Beauty Insurance:SELF PAY [facility] Number: Effective Repository Date:2018-08-20 08/27/2018 SHAWN Guadarrama Primary [place] C Lela [id number] Insurance:MEDICARE CHAPMANDOB: [facility] [id number] Number: Repository [address]Pnx: 330 [id number] [phone] () Date:2018-08-20 08/27/2018 Secondary MONTSERRAT C Beauty Insurance:GOVERNMENT CHAPMANDOB: Community PERSONNEL GRAFORD [id number]: Repository [id number] Date:[id number], [place] [address]JO: 08/27/2018 Tertiary NOT GIVENUNK Beauty Insurance:SELF PAY [facility] Number: Effective Repository Date:2018-08-27 08/25/2018 SHAWN Guadarrama Primary [place]ERR[place] C Lela [id number] Insurance:MEDICARE CHAPMANDOB: Community LINO PART A [facility] [id number] Number: Repository [id number]: 330 [id number] [phone] () Date:2018-08-25 08/25/2018 Secondary MONTSERRAT C Beauty Insurance:GOVERNMENT CHAPMANDOB: Community PERSONNEL GRAFORD [id number] Hospital LIPolicy Number: Repository [id number] Date:[id number] [address] [place] [address] 22465UY: 08/25/2018 Tertiary NOT GIVENUNK Beauty Insurance:SELF PAY [facility] Number: Effective Repository Date:2018-08-25 08/22/2018 SHAWN Guadarrama Primary MONTSERRAT C Beauty [id number] Insurance:MEDICARE CHAPMANDOB: Community LINO PART A [facility] [id number] [place] Number: Repository [id number]: 330 [id number] [phone] () Date:2018-08-22 08/22/2018 Secondary MONTSERRAT C Beauty Insurance:GOVERNMENT CHAPMANDOB: Community PERSONNEL GRAFORD [id number] Hospital LIPolicy Number: Repository [id number] Date:7319-75-65SO [address] [place] [address]AZ: 08/22/2018 Tertiary NOT GIVENUNK Beauty Insurance:SELF PAY [facility] Number: Effective Repository Date:2018-08-22 04/15/2018 SHAWN Guadarrama Primary MONTSERRAT C Beauty [id number] Insurance:MEDICARE CHAPMANDOB: Community LINO PART A [facility] [id number] [place] Number: Repository [id number]: 330 [id number] [phone] () Date:2018-04-15 04/15/2018 Secondary MONTSERRAT C Beauty Insurance:GOVERNMENT CHAPMANDOB: Community [place] [id number] Hospital LIPolicy Number: Repository [id number] Date:1784-76-28[address] [place] [address]NR: 04/15/2018 Tertiary NOT GIVENUNK Lela Insurance:SELF PAY [facility] Number: Effective Repository Date:2018-04-15 02/21/2018 SHAWN Guadarrama Primary MON[place]ERR[place] C Lela [id number] Insurance:MEDICARE CHAPMANDOB: Community LINO PART A [facility] [id number] [place] Number: Repository [address]Lbm: 330 [id number] [phone] () Date:2018-02-21 02/21/2018 Secondary MONTSERRAT C Beauty Insurance:GOVERNMENT CHAPMANDOB: Community PERSONNEL M[employer] [id number] Hospital LIPolicy Number: Repository [id number] Date:[id number] [address]WS: 02/21/2018 Tertiary NOT GIVENUNK Lela Insurance:SELF PAY [facility] Number: Effective Repository Date:2018-02-21 02/18/2018 SHAWN Guadarrama Primary [place] C Lela [id number] Insurance:MEDICARE CHAPMANDOB: Community LINO PART A [facility] [id number] [place] Number: Repository [address]Idc: 330 [id number] [phone] () Date:2018-02-18 02/18/2018 Secondary MONTSERRAT C Lela Insurance:GOVERNMENT CHAPMANDOB: Community PERSONNEL M[employer] [id number] [address] LIPolicy Number: Repository [id number] Date:5345-41-89[address] [address]BX: 02/18/2018 Tertiary NOT GIVENUNK Beauty Insurance:SELF PAY [facility] Number: Effective Repository Date:2018-02-18
== END ==
PROVIDERS: Family Provider Family Medicine; PCP Family Medicine; Referring Provider Family Medicine; Visit Provider Family Medicine
DX: E55.9 Vitamin D deficiency, unspecified (principal); N18.3 Chronic kidney disease, stage 3 (moderate)
CPT/HCPCS: 36415; 80048; 82306

== ENCOUNTER 2020-06-07 13:21 | Inpatient (IN) | payer MEDICARE, OTHER, SELFPAY ==
[2020-06-07] VITALS (11 sets, daily range): BP systolic 135–201; BP diastolic 78–95; PULSE 53–77; RESP 13–19; TEMP 36.4–36.6; O2SAT 95–99; BMI 19.3; BMI 19.0; BMI 19.9
--- NOTE | 2020-06-07 13:58 | EKG12_ITS ---
Test Reason : Blood Pressure : / mmHG Vent. Rate : 052 BPM Atrial Rate : 052 BPM P-R Int : 164 ms QRS Dur : 084 ms QT Int : 472 ms P-R-T Axes : 060 -06 011 degrees QTc Int : 438 ms Sinus bradycardia Left ventricular hypertrophy with repolarization abnormality Abnormal ECG Confirmed by ANTONIETTA GLEASON ([id number]), school photograph editor LE RUDD ([id number]) on 06/09/2020 11:15:39 AM Referred By: Di Briceno Confirmed By:ANTONIETTA GLEASON
--- NOTE | 2020-06-07 13:58 | RAD_ITS ---
STUDY: X-RAY CHEST REASON FOR EXAM: Female, 79 years old. HEMOPTYSIS 2 X TODAY, CONSTIPATION, INCREASED FATIGUE TECHNIQUE: PA and lateral views of the chest. COMPARISON: Comparison is made with prior examination dated 07-07-17. FINDINGS: Surgical clips are once again seen in the right axillary region. Hyperinflation. Since prior study, there has been progressive increased markings with areas of confluence in the lateral aspect of the right upper lobe as well as in the right infrahilar region. Mild increased markings are also seen in the lingular segment of the left upper lobe. Follow-up is recommended. There is no demonstrated pleural abnormality. Normal size heart. Normal mediastinum and татьяна. Normal visualized pulmonary arteries. There is atherosclerotic calcification of the aortic arch with tortuosity. There are diffuse degenerative changes of the visualized thoracic spine. Diffuse osteopenia of the dorsal spine. Normal visualized ribs, clavicles, and shoulders. There is no demonstrated abnormality of the visualized soft tissue structures of the upper abdomen. RAD/Chest PA and Lateral IMPRESSION: Hyperinflation. Progressive increased markings with areas of confluence in the lateral aspect of the right upper lobe as well as in the right infrahilar hilar region and lingular segment of the left upper lobe. Electronically Signed: Artie Hamilton, at 14:47 EDT , Service support ,
--- NOTE | 2020-06-07 14:07 | ED.VIS.GEN ---
History of Present Illness Chief Complaint: GI Bleed Detail of Chief Complaint: Chief complaint is hemoptysis not GI bleed Informant: Patient, Significant Other Onset: Today Context: Sudden Onset Timing: Intermittent Quality: Marko blood Location: Respiratory Current Severity: Moderate Maximum Severity: Moderate Worsened by: Nothing Relieved by: Nothing Associated Symptoms: Fatigue and malaise with poor appetite for 2+ months Narrative: Patient is an 79-year-old woman who has no history of lung disease and no history of smoking who presents with hemoptysis. She states she had mild amount of blood noted in her sputum this morning. She drove her tractor to her daughters house. She began to cough and had large clots according to and daughter. She denies fever, chills or night sweats. She denies runny nose, congestion or postnasal drainage. She denies change in smell or taste. She denies decreased hearing, drainage or ringing in ears. She denies trouble with swallowing. She denies chest pain. She denies pleuritic pain. She has no history of VTE. She denies discoloration of her legs or asymmetry. She has no risk factors for VTE. She denies black or maroon stool. She states her stool has been hard recently. Prior similar symptoms: No Recent Illness/Hospitalization: No - Past Medical History (1) Syncope Status: Acute (2) Essential hypertension Status: Chronic Past Medical History - Allergies and Home Meds Allergies/Adverse Reactions: Allergies No Known Allergies Allergy (Verified 07/07/17 18:38) Primary Care Physician: Venkatesh Cox MD [STAFF PHYSICIAN] - Prior records reviewed: Yes Surgical History: no surgical history Lives: Spouse/ Significant Other Smoking Status: Never smoker Alcohol: None Drugs: None Review of Systems General: Reports: Malaise, Weight loss. Denies: Chills, Fever, Subjective, Sweats, - Eyes: Denies: Visual changes - bilaterally, Blurred Vision - bilaterally ENT: Reports: - - And read HPI. Denies: Right ear pain, Rhinorrhea, Sore throat Cardiovascular: Denies: Chest pain, Palpitations, Heart racing Respiratory: Reports: Cough, Sputum. Denies: Dyspnea, Dyspnea on exertion, Orthopnea, Paroxysmal nocturnal dyspnea Gastrointestinal: Denies: Abdominal pain, Nausea, Vomiting, Diarrhea, Melena, Hematochezia Genitourinary: Denies: Dysuria, Hematuria, Frequency Musculoskeletal: Denies: Myalgias, Arthralgias, Neck pain, Back pain, Swelling, Extremity Pain, -, - Neurological: Reports: Weakness. Denies: Headache, Numbness Endocrine: Denies: Polyuria, Polydipsia Hematologic: Denies: Easy bruising, Easy bleeding Physical Exam Vital Signs/Narrative: Vital Signs Temp Pulse Resp BP Pulse Ox 06/07/20 13:23 97.6 F L 58 L 16 135/83 H 97 Inital Vital Signs reviewed: Yes General: Well nourished, Well developed, No Acute Distress Head: Normocephalic, Atraumatic Eyes: Perrl, EOMI. Negative for: Pale conjunctiva, Scleral icterus ENT: Moist mucous membranes, No rhinorrhea, TM's clear Neck: Supple, Nontender, No lymphadenopathy, No JVD Cardiovascular: Regular rhythm, No murmurs, Normal S1, Normal S2 Respiratory: No distress, Chest nontender, Rales, Rhonchi - Right base, - - Egophony right lower lobe posteriorly. Negative for: CTA bilaterally Abdomen: Soft, Nontender, Nondistended, Normal bowel sounds, No masses Rectal: Deferred Back: Nontender, Normal Inspection. Negative for: CVA tenderness Extremities: Nontender, Edema - 1 to 2 mm pitting edema without asymmetry or discoloration. No leg vein distention, no palpable cords or toes on the distribution deep venous system. Skin: Normal color, No rash, No Trauma. Negative for: Cyanosis, Diaphoresis, Jaundice Neurological: Alert, Oriented x3, Cranial nerves II-XII grossly intact, Normal Strength, Normal Sensation Psychological: Negative for: Normal affect, Normal Mood Diagnostic/Tx/Re-eval Impressions Chest X-Ray 06/07/20 13:58 IMPRESSION: Hyperinflation. Progressive increased markings with areas of confluence in the lateral aspect of the right upper lobe as well as in the right infrahilar hilar region and lingular segment of the left upper lobe. Electronically Signed: Artie Hamilton, at 14:47 EDT , Service support , 06/07/20 13:58 Chest PA and Lateral [RAD] Stat Laboratory Results 06/07/20 06/07/20 13:50 13:50 WBC 5.4 RBC 4.09 L Hgb 12.5 Hct 38.3 MCV 93.6 MCH 30.6 MCHC 32.6 RDW Std Deviation 43.8 RDW Coeff of Juan 12.8 Plt Count 235 MPV 10.5 Immature Gran % (Auto) 0.200 Neut % (Auto) 61.0 Lymph % (Auto) 25.2 [place] % (Auto) 10.7 H Eos % (Auto) 2.0 Baso % (Auto) 0.9 Absolute Neuts (auto) 3.3 Absolute Lymphs (auto) 1.37 Nucleated RBC % 0 Sodium 141 Potassium 4.1 Chloride 107 Carbon Dioxide 31.0 Anion Gap 3 L BUN 23 H Creatinine 1.06 H Estim Creat Clear Calc 35.16 Est GFR (MDRD) Af Amer 64 Est GFR (MDRD) Non-Af 53 L BUN/Creatinine Ratio 21.7 H Glucose 98 Calcium 8.8 Total Bilirubin 0.40 AST 21 ALT 18 Alkaline Phosphatase 84 Total Protein 7.2 Albumin 3.4 Globulin 3.8 Albumin/Globulin Ratio 0.9 Chest x-ray reveals a circular nodule that may represent left breast nipple versus mass. There is an infiltrate peripherally on the right side. Eating lactic acid result. After discussing results of x-ray with radiologist and asking for recommendation versus CT with and without contrast determined that CT without contrast is sufficient to determine etiology of this abnormality noted on chest x-ray. The CT reveals ground glass infiltrates right middle lobe, right lower lobe and left lower lobe. Patient was treated with IV antibiotics. COVID test was obtained since there is concerned this may represent COVID. - EKG Initial EKG Interpretation: Sinus Bradycardia - Sinus bradycardia rate of 52. There is evidence of LVH with repolarization changes. RI interval is 164 ms. QRS duration 84 ms. QT duration 472 ms and axis is normal. - Medical Decision Making With complaint of hemoptysis fatigue and weight loss differential diagnosis would include primary lung cancer, metastasis to lung, tuberculosis and pulmonary embolus. This may also represent a broken bleb/vessel from coughing. To evaluate patient's symptoms complaints appropriate blood work was obtained as well as chest x-ray and EKG. ED Disposition - Plan for ED Patient: Disposition: Acute Care Hospital [facility] Diagnosis: Multilobar lung infiltrate, Major hemoptysis, Suspected COVID-19 virus infection Referrals: Venkatesh Cox MD [STAFF PHYSICIAN] -
[2020-06-07 14:25] LABS: Absolute Lymphocyte Count 1.37 X10^3/uL (0.83-4.51); Absolute Neutrophil Count 3.3 X10^3/uL (2.0-7.7); Basophil# 0.05 X10^3/uL; Basophil% 0.9 % (0-1); Eosinophil# 0.11 X10^3/uL; Hematocrit 38.3 % (37-47); Hemoglobin 12.5 g/dL (12.0-15.0); Lymphocyte # 1.37 X10^3/ul (4.0); Lymphocyte % 25.2 % (19-41); Mean Corp Hgb Conc 32.6 g/dL (32-36); Mean Corpuscular Hgb 30.6 pg (27.0-32.0); Mean Corpuscular Volume 93.6 fL (81-99); Mean Platelet Vol. 10.5 fl (6.2-12.0); Monocyte# 0.58 X10^3/uL; Monocyte% 10.7 % (0-10); NRBC Flagged by Analyzer 0 % (0-5); Neutrophil # 3.32 X10^3/uL (2.7-7.7); Platelet Count 235 K/mm3 (150-450); RBC Distribution Width CV 12.8 % (11.6-14.6); RBC Distribution Width SD 43.8 fl (35.1-43.9); Red Blood Count 4.09 M/mm3 (4.2-5.4); White Blood Count 5.4 K/mm3 (4.4-11.0)
[2020-06-07 14:32] LABS: ALB/GLOB Ratio 0.9 RATIO (0.9-2.4); AST(SGOT) 21 U/L (15-37); Alanine Aminotransfer ALT/SGPT 18 U/L (13-56); Albumin, Serum 3.4 g/dL (3.2-5.0); Alkaline Phosphatase 84 U/L (45-117); Anion Gap 3 (5-15); BUN 23 mg/dL (7-18); BUN/Creat Ratio 21.7 RATIO (10-20); Calcium,Total 8.8 mg/dL (8.5-10.1); Chloride 107 mmol/L (98-107); Creatinine, Serum 1.06 mg/dL (0.55-1.02); EST Glomerular Filtration Rate 53 mL/min (>60); Est Glom Filt Rate - Afr Amer 64 mL/min (>60); Estimated Creatinine Clearance 35.16 ml/min; Globulin 3.8 g/dL (2.2-4.2); Glucose 98 mg/dL (74-106); Potassium 4.1 mmol/L (3.5-5.1); Protein, Total 7.2 g/dL (6.4-8.2); Sodium Level 141 mmol/L (136-145)
--- NOTE | 2020-06-07 14:53 | CT_ITS ---
STUDY: CT CHEST WITHOUT CONTRAST REASON FOR EXAM: Female, 79 years old. COUGHED UP BLOOD, INCREASED FATIGUE RADIATION DOSAGE (If Supplied By Facility): CTDIvol = ( 7.33 ) mGy, DLP = ( 254.60 ) mGycm TECHNIQUE: Transaxial imaging was performed without the administration of intravenous contrast material. Multiplanar coronal and sagittal images were reformatted. Individualized dose optimization techniques were used for this CT. COMPARISON: Comparison is made with prior examination dated 01-19-14. FINDINGS: Surgical clips are seen in the right axillary region. The patient is status post right mastectomy. There now is evidence of patchy groundglass appearance with areas of confluence in the lateral aspect of the right upper lobe posteriorly as well as the anterior aspect of the right lower lobe. There is thickening of the right major fissure. Groundglass appearance is also seen at the left lung base. There is also evidence of volume loss in the right middle lobe with bronchiectasis as well as mild loss and bronchiectasis in the anterior aspect of the lingular segment of the left upper lobe. 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 These are unchanged. Calcified granuloma in both lower lobes. There is no demonstrated pleural abnormality. Normal heart and pericardium. There are multiple small lymph nodes within the mediastinum, which are normal in size and morphology most compatible with reactive lymph hyperplasia. Normal hilar regions. Normal unenhanced pulmonary arteries. Normal aorta arch and descending thoracic aorta. There is demineralization of the thoracic spine. Stable findings of possible hemangioma of the T10 vertebrae. There is no demonstrated abnormality of the visualized upper abdomen. CT/Chest without Contrast IMPRESSION: New areas of groundglass appearance in the lateral aspect of the right upper and right lower lobes as well as in the left lower lobe. Stable scarring and bronchiectasis in the right middle lobe and lingular segment of the left upper lobe. Electronically Signed: Artie Hamilton, at 15:29 EDT , Service support ,
[2020-06-07 14:55] LABS: Lactic Acid 0.8 mmol/L (0.4-1.9)
--- NOTE | 2020-06-07 18:15 | PCM.HP.STD ---
Problem List (1) Pneumonia Status: Acute (2) Breast cancer Status: Chronic (3) Essential hypertension Status: Chronic History of Present Illness Date of Admission: 06/07/20 Chief Complaint: hemoptysis The patient is a 79 year old F with pmhx of right sidedbreast cancer in remission x 14 years, HTN, who presented to the ER with c/o hemoptysis. This began this AM spontaneously. None prior to today. Occasional intermittent cough the past week. No SOB at all. No SOB with exertion. Pt reports a few pounds of weight loss over the past month that she attributes to poor appetite. She has no fever or chills. No nausea/vomiting/diarrhea. No sore throat, no change in taste or smell, no DONOVAN, no chest pain or abd pain. No LE edema. No hx DVTs. No hx TB exposure. No hx of occupational exposures. Pt has never smoked. She lived with a that smoked approx 40 years ago but no 2ndhand exposure since. She denies prior lung disease tho prior CTs show fibrosis. [] Past Medical History Past Medical History (Chronic Problems): Chronic Problems Breast cancer (Chronic) Essential hypertension (Chronic) Allergies No Known Allergies Allergy (Verified 07/07/17 18:38) Home Medications: Ambulatory Orders Medication Instructions Recorded Ergocalciferol [Vitamin D] 50,000 unit PO Q7D 07/07/17 Krill Oil 500 mg PO DAILY 06/07/20 Lisinopril 30 mg PO DAILY 06/07/20 Metoprolol Tartrate 50 mg PO BID 06/07/20 Surgical History: hysterectomy, mastectomy Psychiatric History: No pertinent psych hx ORTHODONTIC ASSISTANT History: No pertinent ORTHODONTIC ASSISTANT history Lives: Spouse/ Significant Other Smoking Status: Never smoker Tobacco Use: Non-smoker Alcohol: None Drugs: None - *Family History Maternal History Items: No pertinent history - denies cancer, heart dz, lung dz Paternal History Items: Cancer, No pertinent history Review of Systems Constitutional: Reports: Weight Change - few pounds over last month, Fatigue - mild. Denies: Chills, Fever, Night Sweats, Weakness HEENT: Denies: Head Aches, Sinus Congestion, Sinus Drainage Cardiovascular: Denies: Chest Pain, Palpitations Respiratory: Reports: Cough, Hemoptysis. Denies: Pleuritic Pain, Shortness of Breath, Shortness of breath at rest, Shortness of breath upon exertion, Sputum production, Wheezing Gastrointestinal: Denies: Abdominal Pain, Nausea, Vomiting Genitourinary: Denies: Dysuria Musculoskeletal: Denies: Joint Pain, Joint Tenderness Skin: Denies: Rash, Wounds Neurological: Denies: Numbness, Tingling, Focal weakness Psychiatric: Denies: Anxiety, Depression, Homicidal Ideations, Suicidal Ideations Hematologic/ Lymphatic: Denies: Easy Bruising, Easy Bleeding VTE Information - Inpt Only VTE Present on Admission: No VTE Mechan Device Prophylaxis: SCD's VTE Pharm Prophylaxis ordered?: No Patient Problems: Active and Suspected Problems Pneumonia (Acute) - Physical Exam Vitals/I&O's: Vital Signs Temp Pulse Resp BP Pulse Ox 97.6 F L 53 L 15 198/86 H 98 06/07/20 13:23 06/07/20 17:00 06/07/20 17:00 06/07/20 17:00 06/07/20 17:00 Oxygen Delivery Method Room Air Weight: 116 lb Body Mass Index (BMI) 19.3 General: Alert, Oriented x3, Cooperative HEENT: Atraumatic, PERRLA, EOMI, Normocephalic Neck: Supple, No JVD, Negative Carotid Bruits Lungs: Normal air movement, Rales - RML/RLL rales Cardiovascular: Regular rate, No murmurs Abdomen: Bowel Sounds Present, Soft, Non Tender Extremities: No edema, Capillary Refill Less than 3 Seconds Skin: No rashes, No breakdown Musculoskeletal: No Tenderness to Palpation of Joints or Extremities Neurological: Cranial nerves II-XII grossly intact Psych/Mental Status: Normal Affect, Appropriate, Alert and oriented to time, place, person, mood and affect Laboratory Results 06/07/20 13:50: WBC 5.4, RBC 4.09 L, Hgb 12.5, Hct 38.3, MCV 93.6, MCH 30.6, MCHC 32.6, RDW Std Deviation 43.8, RDW Coeff of Juan 12.8, Plt Count 235, MPV 10.5, Immature Gran % (Auto) 0.200, Neut % (Auto) 61.0, Lymph % (Auto) 25.2, Tyler % (Auto) 10.7 H, Eos % (Auto) 2.0, Baso % (Auto) 0.9, Absolute Neuts (auto) 3.3, Absolute Lymphs (auto) 1.37, Nucleated RBC % 0 06/07/20 13:50: Sodium 141, Potassium 4.1, Chloride 107, Carbon Dioxide 31.0, Anion Gap 3 L, BUN 23 H, Creatinine 1.06 H, Estim Creat Clear Calc 35.16, Est GFR (MDRD) Af Amer 64, Est GFR (MDRD) Non-Af 53 L, BUN/Creatinine Ratio 21.7 H, Glucose 98, Calcium 8.8, Total Bilirubin 0.40, AST 21, ALT 18, Alkaline Phosphatase 84, Total Protein 7.2, Albumin 3.4, Globulin 3.8, Albumin/Globulin Ratio 0.9 06/07/20 14:10: Lactic Acid 0.8 06/07/20 17:05: COVID-19 ([facility]) Pending Assessment/Plan All Active Problems Pneumonia (Acute) Syncope (Acute) ALLYN (acute kidney injury) (Acute) 1. Hemoptysis - etiology unclear but possibly pna. CT chest with increased groundglass changes, also fibrotic/bronchiectatic changes however these appear on old CT. Empiric abx with rocephin/azithro. Consult Pulm. Hgb is normal. No hx TB exposure, distant 2nd hand smoke exposure. Denies hx lung dz. Denies CP, SOB, or LE edema so doubt PE. Awaiting covid test. Did have hx of Right sided breast cancer x 14 years ago, in remission. Pt has lost a few pounds the past month. -Check Sputum culture, check urine antigens. 2. HTN - markedly elevated in ER. Continue home meds + PRN hydralazine and lebatolol 3. Hx breast cancer - right sided, in remission x [address] Castelan. DVT ppx: SCDs This patient was seen by Gabino Bergman PA-C under the supervision of Dr. Briceno.
[2020-06-07 18:33] LABS: Probe Check PASS; Specimen Processing Control PASS
[2020-06-07 20:14] LABS: CRP < 2.90 mg/L (0.0-3.0); Ferritin 58 ng/mL (8-252); LDH 181 U/L (84-246)
[2020-06-07 20:21] LABS: Procalcitonin < 0.01 ng/mL (0.00-0.09)
[2020-06-07] MEDS: Metoprolol Tartrate 50 MG Tablet PO (20:21)
[2020-06-07] MEDS: 0.9% Normal Saline 1,000 ML 100 ML IV (20:22)
[2020-06-07 21:14] LABS: Prothrombin Time (Protime)PT. 13.1 SECONDS (11.7-14.9)
[2020-06-07 21:15] LABS: Partial Thromboplast Time 26.6 Seconds (24.1-36.2)
[2020-06-07 21:22] LABS: D-Dimer Quantitative (DVT/PE) 1.02 FEU/ug/m (0.27-0.49)
[2020-06-07] MEDS: Famotidine 20 MG Tablet PO (22:13)
[2020-06-07 22:45] LABS: M R Staph aureus DNA By PCR Negative (Negative); Probe Check PASS; Specimen Processing Control PASS
[2020-06-08] VITALS (7 sets, daily range): BP systolic 167–178; BP diastolic 59–79; PULSE 54–69; RESP 18–19; TEMP 36.4–36.6; O2SAT 97–98
[2020-06-08] MEDS: 0.9% Normal Saline 1,000 ML 100 ML IV (05:53)
[2020-06-08 06:10] LABS: Absolute Lymphocyte Count 1.29 X10^3/uL (0.83-4.51); Absolute Neutrophil Count 4.4 X10^3/uL (2.0-7.7); Basophil# 0.04 X10^3/uL; Basophil% 0.6 % (0-1); Eosinophil# 0.16 X10^3/uL; Eosinophils% 2.4 % (0-5); Hematocrit 38.9 % (37-47); Hemoglobin 12.5 g/dL (12.0-15.0); Lymphocyte # 1.29 X10^3/ul (4.0); Lymphocyte % 19.7 % (19-41); Mean Corp Hgb Conc 32.1 g/dL (32-36); Mean Corpuscular Hgb 30.3 pg (27.0-32.0); Mean Corpuscular Volume 94.4 fL (81-99); Monocyte# 0.59 X10^3/uL; NRBC Flagged by Analyzer 0 % (0-5); Neutrophil # 4.44 X10^3/uL (2.7-7.7); Platelet Count 200 K/mm3 (150-450); RBC Distribution Width CV 12.7 % (11.6-14.6); RBC Distribution Width SD 43.7 fl (35.1-43.9); Red Blood Count 4.12 M/mm3 (4.2-5.4); White Blood Count 6.5 K/mm3 (4.4-11.0)
[2020-06-08 06:27] LABS: ALB/GLOB Ratio 0.8 RATIO (0.9-2.4); AST(SGOT) 18 U/L (15-37); Alanine Aminotransfer ALT/SGPT 17 U/L (13-56); Alkaline Phosphatase 76 U/L (45-117); Anion Gap 1 (5-15); BUN 18 mg/dL (7-18); BUN/Creat Ratio 18.7 RATIO (10-20); Calcium,Total 8.3 mg/dL (8.5-10.1); Chloride 107 mmol/L (98-107); Creatinine, Serum 0.96 mg/dL (0.55-1.02); EST Glomerular Filtration Rate 59 mL/min (>60); Est Glom Filt Rate - Afr Amer 72 mL/min (>60); Estimated Creatinine Clearance 40.07 ml/min; Globulin 3.7 g/dL (2.2-4.2); Glucose 89 mg/dL (74-106); Potassium 3.6 mmol/L (3.5-5.1); Protein, Total 6.7 g/dL (6.4-8.2); Sodium Level 140 mmol/L (136-145)
--- NOTE | 2020-06-08 07:59 | CT_ITS ---
STUDY: CTA CHEST REASON FOR EXAM: Female, 79 years old. COUGH X 1 WEEK, PE PROTOCOL, HX BREAST CANCER RADIATION DOSAGE (If Supplied By Facility): CTDIvol = ( 4.87 ) mGy, DLP = ( 116.75 ) mGycm TECHNIQUE: The examination was performed with the intravenous administration of IV 75mL [id number]. Post-processing of the angiographic images was performed, with multiplanar reformation and 3D reconstruction. Individualized dose optimization techniques were used for this CT. COMPARISON: Comparison is made with prior study dated 06/07/2020. FINDINGS: Normal enhancement of the main pulmonary artery and right and left pulmonary arteries. Normal enhancement of the bilateral peripheral pulmonary arteries. There is no demonstrated pulmonary embolism. Normal thoracic aorta and visualized great vessels. There is no demonstrated aortic dissection. Normal heart and pericardium. There are visualized mediastinal lymph nodes, which are within normal size limits, and with normal morphology. Normal hilar regions. Normal visualized trachea and bronchi. The lungs are well expanded. Stable examination with evidence of patchy groundglass appearance with areas of confluence in the lateral aspect of the right upper lobe posteriorly as well as the anterior aspect of the right lower lobe. Once again, there is a thickening of the right major fissure. Groundglass appearance is also seen in the left lung base. This also evidence of volume loss in the right middle lobe bronchiectasis as well as mild loss of volume and bronchiectasis in the anterior aspect of the lingular segment of the left upper lobe. These may represent changes secondary to post radiation fibrosis. Normal pleura. Normal chest wall structures. Normal osseous structures. Normal visualized upper abdomen. CT/CTA Chest W/WO Contrast IMPRESSION: Stable examination. No evidence of pulmonary embolus. Electronically Signed: Artie Hamilton, at 9:52 EDT , Service support ,
--- NOTE | 2020-06-08 08:21 | CON.PCM_ITS ---
Reason for Consult Date of Consultation: 06/08/20 Reason for Consultation: Hemoptysis History of Present Illness: The patient is an 79-year-old female, with a history as outlined below, who presented to the emergency department on June 07 with complaints of several episodes of self-limited blood-streaked sputum. The patient is a lifelong non- smoker. She has never experienced any similar episodes to this previously. She denies any recent episodes of epistaxis. She has no known history of venous thromboembolic disease. The patient reported that she was simply outside mowing her grass yesterday when she began to develop a cough with blood-streaked sputum. She denies any chest pain, shortness of breath, chest tightness or wheezing. She is not currently on any form of systemic anticoagulation or any antiplatelet agents. She denies any recent travel. She reports no sick contact exposure. She denies any fevers, chills, myalgias or arthralgias. She has not lost her sensation of taste or smell. On presentation to the emergency department, the patient was noted to be afebrile hemodynamically stable. She did have several documented episodes of significantly elevated blood pressures in excess of 190 mmHg. He was maintaining appropriate oxygen saturations on room air. Laboratory evaluation revealed a normal CBC with differential. Coagulation profile was within normal limits. D-dimer was elevated to 1.02. Chemistry profile was notable for a creatinine of 1.06. Lactate was within normal limits. Liver function profile was within normal limits. Procalcitonin was not elevated. MRSA screen was negative. Coronavirus PCR was negative. A noncontrasted chest CT was obtained and revealed multifocal peripheral base groundglass changes bilaterally. There was also focal areas of bronchiectasis. The patient was subsequently placed on azithromycin and ceftriaxone. She was subsequently admitted to the medical intensive care unit with coronavirus precautions. 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 Denies: Pleuritic Pain, Shortness of Breath, Wheezing Gastrointestinal: Denies: Abdominal Pain, Nausea, Vomiting Genitourinary: Denies: Dysuria Musculoskeletal: Denies: Joint Pain, Joint Tenderness Skin: Denies: Rash, Wounds Neurological: Denies: Numbness, Tingling, Focal weakness Psychiatric: Denies: Anxiety, Depression, Homicidal Ideations, Suicidal Ideations Hematologic/ Lymphatic: Denies: Easy Bruising, Easy Bleeding, Hx of blood clot Objective: The patient's most recent lab work, culture data and imaging studies have all been personally reviewed. - Physical Exam Vitals/I&O's: Vital Signs Temp Pulse Resp BP Pulse Ox 97.8 F 54 L 19 H 167/59 H 97 06/08/20 02:05 06/08/20 04:00 06/08/20 02:05 06/08/20 02:05 06/08/20 02:05 Oxygen Delivery Method Room Air Weight: 119 lb 11.376 oz Body Mass Index (BMI) 19.9 Intake and Output for Last 24 Hours 06/06/20 06/07/20 06/08/20 23:59 23:59 23:59 Intake Total 305 / 305 1351.67 / 1351.67 Balance 305 / 305 1351.67 / 1351.67 General: Alert, Oriented x3, Cooperative, No apparent distress HEENT: Atraumatic, PERRLA, Normocephalic Oral: Moist Mucosa, No Gingival or Mucosal Lesions/ Ulcerations Neck: Supple, No Nodes, Trachea Midline Lungs: Normal air movement, No rhonchi, No wheeze, No rales Cardiovascular: Regular rate, Regular Rhythm Abdomen: Bowel Sounds Present, Soft, Non Tender Extremities: No clubbing, No cyanosis, No edema Skin: No breakdown Musculoskeletal: No Tenderness to Palpation of Joints or Extremities, No Muscle Wasting Lymphatic: No Cervical, Supraclavicular, or Inguinal Adenopathy Neurological: Cranial nerves II-XII grossly intact, Neuro grossly intact Psych/Mental Status: Alert and oriented to time, place, person, mood and affect Labs (Last 48 Hours) 06/07/20 06/07/20 06/07/20 13:50 13:50 13:50 WBC 5.4 RBC 4.09 L Hgb 12.5 Hct 38.3 MCV 93.6 MCH 30.6 MCHC 32.6 RDW Std Deviation 43.8 RDW Coeff of Juan 12.8 Plt Count 235 MPV 10.5 Immature Gran % (Auto) 0.200 Neut % (Auto) 61.0 Lymph % (Auto) 25.2 [place] % (Auto) 10.7 H Eos % (Auto) 2.0 Baso % (Auto) 0.9 Absolute Neuts (auto) 3.3 Absolute Lymphs (auto) 1.37 Nucleated RBC % 0 PT INR APTT D-Dimer Quant (PE/DVT) Sodium 141 Potassium 4.1 Chloride 107 Carbon Dioxide 31.0 Anion Gap 3 L BUN 23 H Creatinine 1.06 H Estim Creat Clear Calc 35.16 Est GFR (MDRD) Af Amer 64 Est GFR (MDRD) Non-Af 53 L BUN/Creatinine Ratio 21.7 H Glucose 98 Lactic Acid Calcium 8.8 Magnesium 2.0 Ferritin 58 Total Bilirubin 0.40 AST 21 ALT 18 Alkaline Phosphatase 84 Lactate Dehydrogenase 181 C-React Prot Ext Range < 2.90 B-Natriuretic Peptide Total Protein 7.2 Albumin 3.4 Globulin 3.8 Albumin/Globulin Ratio 0.9 Procalcitonin NETO Screen c-ANCA Antibody p-ANCA Antibody ELAINE-1 Antibody SS-A/Ro IgG Antibody SS-B/La IgG Antibody Sm (Meyer) Antibody LEAN MANAGER Antibody Scl-70 Scleroderma Ab Double Strand DNA Ab Centromere B Antibody COVID-19 ([facility]) MRSA (PCR) 06/07/20 06/07/20 06/07/20 13:50 14:10 17:05 WBC RBC Hgb Hct MCV MCH MCHC RDW Std Deviation RDW Coeff of Juan Plt Count MPV Immature Gran % (Auto) Neut % (Auto) Lymph % (Auto) [place] % (Auto) Eos % (Auto) Baso % (Auto) Absolute Neuts (auto) Absolute Lymphs (auto) Nucleated RBC % PT INR APTT D-Dimer Quant (PE/DVT) Sodium Potassium Chloride Carbon Dioxide Anion Gap BUN Creatinine Estim Creat Clear Calc Est GFR (MDRD) Af Amer Est GFR (MDRD) Non-Af BUN/Creatinine Ratio Glucose Lactic Acid 0.8 Calcium Magnesium Ferritin Total Bilirubin AST ALT Alkaline Phosphatase Lactate Dehydrogenase C-React Prot Ext Range B-Natriuretic Peptide Total Protein Albumin Globulin Albumin/Globulin Ratio Procalcitonin < 0.01 NETO Screen c-ANCA Antibody p-ANCA Antibody ELAINE-1 Antibody SS-A/Ro IgG Antibody SS-B/La IgG Antibody Sm (Meyer) Antibody LEAN MANAGER Antibody Scl-70 Scleroderma Ab Double Strand DNA Ab Centromere B Antibody COVID-19 ([facility]) Negative MRSA (PCR) 06/07/20 06/07/20 06/08/20 20:30 20:45 06:00 WBC 6.5 RBC 4.12 L Hgb 12.5 Hct 38.9 MCV 94.4 MCH 30.3 MCHC 32.1 RDW Std Deviation 43.7 RDW Coeff of Juan 12.7 Plt Count 200 MPV 10.0 Immature Gran % (Auto) 0.300 Neut % (Auto) 68.0 Lymph % (Auto) 19.7 [place] % (Auto) 9.0 Eos % (Auto) 2.4 Baso % (Auto) 0.6 Absolute Neuts (auto) 4.4 Absolute Lymphs (auto) 1.29 Nucleated RBC % 0 PT 13.1 INR 1.0 APTT 26.6 D-Dimer Quant (PE/DVT) 1.02 H* Sodium Potassium Chloride Carbon Dioxide Anion Gap BUN Creatinine Estim Creat Clear Calc Est GFR (MDRD) Af Amer Est GFR (MDRD) Non-Af BUN/Creatinine Ratio Glucose Lactic Acid Calcium Magnesium Ferritin Total Bilirubin AST ALT Alkaline Phosphatase Lactate Dehydrogenase C-React Prot Ext Range B-Natriuretic Peptide Total Protein Albumin Globulin Albumin/Globulin Ratio Procalcitonin NETO Screen c-ANCA Antibody p-ANCA Antibody ELAINE-1 Antibody SS-A/Ro IgG Antibody SS-B/La IgG Antibody Sm (Meyer) Antibody LEAN MANAGER Antibody Scl-70 Scleroderma Ab Double Strand DNA Ab Centromere B Antibody COVID-19 ([facility]) MRSA (PCR) Negative 06/08/20 06/08/20 06/08/20 06:00 06:00 08:55 WBC RBC Hgb Hct MCV MCH MCHC RDW Std Deviation RDW Coeff of Juan Plt Count MPV Immature Gran % (Auto) Neut % (Auto) Lymph % (Auto) [place] % (Auto) Eos % (Auto) Baso % (Auto) Absolute Neuts (auto) Absolute Lymphs (auto) Nucleated RBC % PT INR APTT D-Dimer Quant (PE/DVT) Sodium 140 Potassium 3.6 Chloride 107 Carbon Dioxide 32.0 Anion Gap 1 L BUN 18 Creatinine 0.96 Estim Creat Clear Calc 40.07 Est GFR (MDRD) Af Amer 72 Est GFR (MDRD) Non-Af 59 L BUN/Creatinine Ratio 18.7 Glucose 89 Lactic Acid Calcium 8.3 L Magnesium Ferritin Total Bilirubin 0.40 AST 18 ALT 17 Alkaline Phosphatase 76 Lactate Dehydrogenase C-React Prot Ext Range B-Natriuretic Peptide 356.9 H Total Protein 6.7 Albumin 3.0 L Globulin 3.7 Albumin/Globulin Ratio 0.8 L Procalcitonin NETO Screen Pending c-ANCA Antibody p-ANCA Antibody ELAINE-1 Antibody Pending SS-A/Ro IgG Antibody Pending SS-B/La IgG Antibody Pending Sm ([place]eyer) Antibody Pending LEAN MANAGER Antibody Pending Scl-70 Scleroderma Ab Pending Double Strand DNA Ab Pending Centromere B Antibody Pending COVID-19 ([facility]) MRSA (PCR) 06/08/20 08:55 WBC RBC Hgb Hct MCV MCH MCHC RDW Std Deviation RDW Coeff of Juan Plt Count MPV Immature Gran % (Auto) Neut % (Auto) Lymph % (Auto) [place] % (Auto) Eos % (Auto) Baso % (Auto) Absolute Neuts (auto) Absolute Lymphs (auto) Nucleated RBC % PT INR APTT D-Dimer Quant (PE/DVT) Sodium Potassium Chloride Carbon Dioxide Anion Gap BUN Creatinine Estim Creat Clear Calc Est GFR (MDRD) Af Amer Est GFR (MDRD) Non-Af BUN/Creatinine Ratio Glucose Lactic Acid Calcium Magnesium Ferritin Total Bilirubin AST ALT Alkaline Phosphatase Lactate Dehydrogenase C-React Prot Ext Range B-Natriuretic Peptide Total Protein Albumin Globulin Albumin/Globulin Ratio Procalcitonin NETO Screen c-ANCA Antibody Pending p-ANCA Antibody Pending ELAINE-1 Antibody SS-A/Ro IgG Antibody SS-B/La IgG Antibody Sm ([place]eyer) Antibody LEAN MANAGER Antibody Scl-70 Scleroderma Ab Double Strand DNA Ab Centromere B Antibody COVID-19 ([facility]) MRSA (PCR) Microbiology 06/07/20 22:20 Mucosa - Nasopharyngeal Respiratory Panel (PCR) - Final 06/07/20 20:40 Urine, Clean Catch Streptococcus pneumoniae Antigen (M - Final 06/07/20 20:40 Urine, Clean Catch Legionella Antigen - Final Clinical Impression(s) from Imaging Studies Chest X-Ray 06/07/20 13:58 IMPRESSION: Hyperinflation. Progressive increased markings with areas of confluence in the lateral aspect of the right upper lobe as well as in the right infrahilar hilar region and lingular segment of the left upper lobe. Electronically Signed: Artie Hamilton, at 14:47 EDT , Service support , Chest CT 06/07/20 14:53 IMPRESSION: New areas of groundglass appearance in the lateral aspect of the right upper and right lower lobes as well as in the left lower lobe. Stable scarring and bronchiectasis in the right middle lobe and lingular segment of the left upper lobe. Electronically Signed: Artie Hamilton, at 15:29 EDT , Service support , Current Medications Acetaminophen (Tylenol) 650 mg PO Q6H PRN PRN PRN Reason: Pain Score 1-10/Temp > 100.7 F Al Hydroxide/Mg Hydroxide (Mylanta Ii) 30 ml PO Q6H PRN PRN PRN Reason: Gastric Burning Albuterol Sulfate (Ventolin Aerosols) 2.5 mg INHALATION Q2H PRN PRN PRN Reason: Dyspnea, wheezing Dextrose (D50w Syringe) 0 gm IV X1 PRN; Protocol PRN Reason: Hypoglycemia Famotidine (Pepcid) 20 mg PO DAILY [facility] Last Admin: 06/07/20 22:13 Dose: 20 mg Documented by: Glucagon () 1 mg IM .X1 PRN PRN Reason: Hypoglycemia Guaifenesin (Robitussin) 20 ml PO Q4H PRN PRN PRN Reason: COUGH Hydralazine HCl (Apresoline Iv) 10 mg IV Q4H PRN PRN PRN Reason: SBP > 160 Sodium Chloride () 1,000 mls @ 100 mls/hr IV .Q10H [facility] Last Admin: 06/08/20 05:53 Dose: 100 mls/hr Documented by: Ceftriaxone Sodium 2 gm/ (Sodium Chloride) 50 mls @ 100 mls/hr IV Q24@2200 [facility] Azithromycin 500 mg/ Dextrose 255 mls @ 250 mls/hr IV Q24@2200 [facility] Sodium Chloride () 250 mls @ 15 mls/hr IV .[id number] PRN PRN Reason: Saline Flush Sodium Chloride () 250 mls @ 15 mls/hr IV .[id number] PRN PRN Reason: Additional IVPB Infusion Lisinopril (Zestril) 30 mg PO DAILY [facility] Magnesium Hydroxide (Milk Of Magnesia) 30 ml PO DAILY PRN PRN PRN Reason: Constipation Melatonin (Melatonin) 3 mg PO QHS PRN PRN PRN Reason: INSOMNIA Metoprolol Tartrate (Lopressor (Beta Rossana)) 50 mg PO BID [facility] Last Admin: 06/07/20 20:21 Dose: 50 mg Documented by: Morphine Sulfate () 2 mg IV Q3H PRN PRN PRN Reason: Pain Score 6-10/10 Nitroglycerin (Nitrostat) 0.4 mg SUBLINGUAL Q5M PRN PRN Reason: CARDIAC/CHEST PAIN Ondansetron HCl (Zofran) 4 mg IV Q8H PRN PRN PRN Reason: NAUSEA/VOMITING Oxycodone HCl (Oxyir) 5 mg PO Q4H PRN PRN PRN Reason: Pain Score 4-5/10 Prochlorperazine Edisylate (Compazine Iv) 5 mg IV Q4H PRN PRN PRN Reason: Breakthrough nausea/vomiting Psyllium Hydrophilic Mucilloid (Metamucil) 1 packet PO DAILY PRN PRN PRN Reason: Constipation Senna/Docusate Sodium (Senokot-S, Lily-Colace) 2 tablet PO BID PRN PRN PRN Reason: Constipation Sodium Chloride () 10 - 40 ml IV UD PRN PRN Reason: SALINE FLUSH Throat Lozenges (Cepacol Sore Throat Lozenge) 1 lozenge MUCOUS MEM Q2H PRN PRN PRN Reason: SORE THROAT Assessment/Plan All Active Problems Pneumonia (Acute) Multilobar lung infiltrate (Acute) Major hemoptysis (Acute) Suspected COVID-19 virus infection (Acute) Syncope (Acute) ALLYN (acute kidney injury) (Acute) RECOMMENDATIONS: 1. Check BNP, NETO and ANCA. 2. Obtain CTA chest to rule out PE. 3. Plan to discharge patient home on a 5-day course of Levaquin. 4. Ideally, the patient should follow-up in the pulmonary medicine clinic within 2 weeks of discharge. IMPRESSIONS: 1. Self-limited hemoptysis The patient presented to the hospital with several episodes of self-limited blood-streaked sputum. She does have underlying bronchiectasis on chest imaging, which could certainly be the etiology for the patient's lower respiratory blood loss. Regardless, her hemoptysis has completely resolved. Given that the groundglass changes noted on chest imaging were more peripheral in nature, a CTA chest was obtained to ensure that there was no pulmonary emboli present. No PE was identified on subsequent imaging. Will also plan to check an autoimmune panel and ANCA for the sake of completeness. Although the patient does not seem overtly ill, given the groundglass changes noted on chest imaging, I would recommend that the patient complete a 5-day treatment course of Levaquin at discharge. She is currently clinically stable and maintaining appropriate oxygen saturations on room air. From my perspective, she can be discharged home with instructions to follow-up in the pulmonary medicine clinic within 2 weeks of discharge. This note was generated with [employer] dictation software. It may contain incorrect words, spelling, and punctuation that were not noted in checking the note before signing. Inpatient E&M: 25076 Init Hosp L3
[2020-06-08] MEDS: Lisinopril 10 MG Tablet 30 MG PO (08:52)
[2020-06-08] MEDS: Metoprolol Tartrate 50 MG Tablet PO (08:52)
--- NOTE | 2020-06-08 08:57 | DCINST_ITS ---
- Discharge Diagnoses Current Active Problems: Current Active and Chronic Problems Pneumonia (Acute) Breast cancer (Chronic) Multilobar lung infiltrate (Acute) Major hemoptysis (Acute) Suspected COVID-19 virus infection (Acute) You will use the following diet at home:: Cardiac Your food should be the consistency of: Regular Your liquids should be the consistency of: Regular/Thin Discharge Activity: Return to Normal Activity Allergies/Adverse Reactions: Allergies No Known Allergies Allergy (Verified 07/07/17 18:38) Medications to take at Discharge Ergocalciferol [Vitamin D] 50,000 unit PO Q7D 07/07/17 Krill Oil 500 mg PO DAILY 06/07/20 Lisinopril 30 mg PO DAILY 06/07/20 Metoprolol Tartrate 50 mg PO BID 06/07/20 Primary Care Physician: Venkatesh Cox MD [STAFF PHYSICIAN] - Please follow up with your Primary Care Physician in: 1 week Test Results: Test results from this visit will be discussed in further detail at your follow- up appointment, if applicable. Please Follow Up With: Newton Ashley DO When: 2 weeks Proposed Discharge Date: 06/08/20
[2020-06-08 09:11] LABS: BNP,B-Type NATRIURETIC PEPTIDE 356.9 pg/mL (0-100)
[2020-06-08] MEDS: 0.9% Saline Lock 10 ML Syringe IV (09:11)
--- NOTE | 2020-06-08 09:50 | CASEMGMT ---
BUZZ SUMNER PRINTS AND DRAWINGS CURATOR CM to room to meet with patient for initial transition planning/care coordination assessment. BUZZ SUMNER introduced self and role at [facility]. Pt voices understanding and consents to assessment at this time. Pt sitting on edge of bed in no distress at this time. Pt is A/O at this time and answers all questions appropriately. Care providers, pharmacy, and demographics verified at this time. PCP: Dr Ramos Specialists: none at this time [facility]erred [facility]acy: [facility] Insurance: [employer], Other Commercial (pt thinks [employer]) Prescription Benefit: pt is not sure Living Will/HPOA: Pt thinks she has completed LW and Healthcare POA, but is not certain. States if she has completed POA, she thinks it is her daughter Mallorie. Pt given [employer] card and AD info and made aware she can make an appt as an Out-pt if she needs to complete or update paperwork in the future. Pt voices understanding/appreciation. LNOK: , Jose Daniel. 2 daughters and a son. One daughters name is Mallorie Solis, and pt thinks she may be her POA. Living Arrangements: Lives in 3-story home w/her and son lives with them currently while he is building a house. Pt states she typically just uses 2 stories and states navigates the stairs well. States is independent w/ADL's and IADL's and does some yardwork. 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 Transportation: Pt states drives self and states no transportation concerns at this time. 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 Son or daughter can assist if needed. DME: Denies using any DME and denies needs. HHC/SNF: No history of either. Denies need for HHC or OP therapy. No needs identified. Pt made aware, if in the future she feels she would benefit from OP therapy or HHC, to discuss this with her PCP. She voices understanding. Pt wishes to return home and states has no concerns with going home at time of discharge.CM to follow for any discharge planning/needs. Pt voices no concerns/needs at this time. Advised pt to ask for CM if any questions/concerns/needs arise. Voices understanding. PLAN: Home w/family support and discharge plans in place. Joe CAMPBELL RN, CM
--- NOTE | 2020-06-08 10:35 | PCM.DC.SUM ---
Discharge Date and Diagnosis - Problem List Patient Problems: Active and Suspected Problems Pneumonia (Acute) Multilobar lung infiltrate (Acute) Major hemoptysis (Acute) Suspected COVID-19 virus infection (Acute) Date of Admission: 06/07/20 Date of Discharge: 06/08/20 - Primary Discharge Diagnosis Acute Problems: Active Problems Hemoptysis Right sided pneumonia - Secondary Discharge Diagnosis Chronic Problems: Chronic Problems Breast cancer (Chronic) Essential hypertension (Chronic) Hospital Course and Treatment Imaging Results: 06/08/20 07:59 CTA Chest W/WO Contrast [CT] Urgent CT/CTA Chest W/WO Contrast IMPRESSION: Stable examination. No evidence of pulmonary embolus. RAD/Chest PA and Lateral IMPRESSION: Hyperinflation. Progressive increased markings with areas of confluence in the lateral aspect of the right upper lobe as well as in the right infrahilar hilar region and lingular segment of the left upper lobe. CT/Chest without Contrast IMPRESSION: New areas of groundglass appearance in the lateral aspect of the right upper and right lower lobes as well as in the left lower lobe. Stable scarring and bronchiectasis in the right middle lobe and lingular segment of the left upper lobe. Consults: Brown - Pulmonology Operations: None Procedures: None Summary of Care Provided: Hospital Course: The patient is a 79 year old F with pmhx of right sided breast cancer in remission x 14 years, who presented to the ER with hemoptysis. This began the day of presentation and pt reported bright red blood with coughing. No SOB. No fever/chills. No symptoms concerning for covid19. She reported a few pound weight loss over the past month she attributed to having less appetite than she used to. In the ER she had CXR showing hyperinflation, and some increased markings in the RUL, right infrahilar region and lingular segments of the left upper lobe. She Had a CT chest with no contrast that showed the patient had groundglass changes and bronchiectasis. The patient did not have fever or leukocytosis and had no other symptoms concerning for pna, no SOB, and no hypoxia. She had no anemia or thrombocytopenia on CBC, and PT/inr/aptt were normal. However, given the findings she was placed on rocephin and azithromycin for possible pneumonia. She had an elevated D dimer and a CTA chest was performed - this showed no PE. She had a negative Lactic acid, negative procalcitonin, negative MRSA swab, and negative covid test. BNP was mildly elevated at 356.9. She was admitted and pulmonary medicine was consulted. Pulmonary recommended 5 more days of oral levaquin therapy, ordered a rheumatoid panel and ANCA which are pending, and recommended outpatient follow up. She improved faster than expected, with no symptoms the following day. She was discharged home in stable condition. She will need follow up with pulm in 2 weeks, PCP in 1 week. This patient was seen by Gabino Bergman PA-C under the supervision of Doctor Jorge. [] Patient Problems: Active and Suspected Problems Pneumonia (Acute) Multilobar lung infiltrate (Acute) Major hemoptysis (Acute) Suspected COVID-19 virus infection (Acute) - Physical Exam Vitals/I&O's: Vital Signs Temp Pulse Resp BP Pulse Ox 97.6 F L 60 18 178/79 H 98 06/08/20 10:05 06/08/20 10:05 06/08/20 10:05 06/08/20 10:05 06/08/20 10:05 Oxygen Delivery Method Room Air Weight: 119 lb 11.376 oz Body Mass Index (BMI) 19.9 Intake and Output for Last 24 Hours 06/06/20 06/07/20 06/08/20 23:59 23:59 23:59 Intake Total 305 / 305 1680.00 / 1680.00 Balance 305 / 305 1680.00 / 1680.00 General: Alert, Oriented x3, Cooperative HEENT: Atraumatic, PERRLA, EOMI, Normocephalic Neck: Supple, No JVD, Negative Carotid Bruits Lungs: Normal air movement, No rales - RML/RLL Cardiovascular: Regular rate, No murmurs Abdomen: Bowel Sounds Present, Soft, Non Tender Extremities: No edema, Capillary Refill Less than 3 Seconds Skin: No rashes, No breakdown Musculoskeletal: No Tenderness to Palpation of Joints or Extremities Neurological: Cranial nerves II-XII grossly intact Psych/Mental Status: Normal Affect, Appropriate, Alert and oriented to time, place, person, mood and affect Microbiology Past 72 Hours 06/07/20 22:20 Mucosa - Nasopharyngeal Respiratory Panel (PCR) - Final 06/07/20 20:40 Urine, Clean Catch Streptococcus pneumoniae Antigen (M - Final 06/07/20 20:40 Urine, Clean Catch Legionella Antigen - Final Laboratory Results 06/07/20 13:50: WBC 5.4, RBC 4.09 L, Hgb 12.5, Hct 38.3, MCV 93.6, MCH 30.6, MCHC 32.6, RDW Std Deviation 43.8, RDW Coeff of Juan 12.8, Plt Count 235, MPV 10.5, Immature Gran % (Auto) 0.200, Neut % (Auto) 61.0, Lymph % (Auto) 25.2, Bates % (Auto) 10.7 H, Eos % (Auto) 2.0, Baso % (Auto) 0.9, Absolute Neuts (auto) 3.3, Absolute Lymphs (auto) 1.37, Nucleated RBC % 0 06/07/20 13:50: Sodium 141, Potassium 4.1, Chloride 107, Carbon Dioxide 31.0, Anion Gap 3 L, BUN 23 H, Creatinine 1.06 H, Estim Creat Clear Calc 35.16, Est GFR (MDRD) Af Amer 64, Est GFR (MDRD) Non-Af 53 L, BUN/Creatinine Ratio 21.7 H, Glucose 98, Calcium 8.8, Total Bilirubin 0.40, AST 21, ALT 18, Alkaline Phosphatase 84, Total Protein 7.2, Albumin 3.4, Globulin 3.8, Albumin/Globulin Ratio 0.9 06/07/20 13:50: Magnesium 2.0, Ferritin 58, Lactate Dehydrogenase 181, C-React Prot Ext Range < 2.90 06/07/20 13:50: Procalcitonin < 0.01 06/07/20 14:10: Lactic Acid 0.8 06/07/20 17:05: COVID-19 ([place]) Negative 06/07/20 20:30: PT 13.1, INR 1.0, APTT 26.6, D-Dimer Quant (PE/DVT) 1.02 H* 06/07/20 20:45: MRSA (PCR) Negative 06/08/20 06:00: WBC 6.5, RBC 4.12 L, Hgb 12.5, Hct 38.9, MCV 94.4, MCH 30.3, MCHC 32.1, RDW Std Deviation 43.7, RDW Coeff of Juan 12.7, Plt Count 200, MPV 10.0, Immature Gran % (Auto) 0.300, Neut % (Auto) 68.0, Lymph % (Auto) 19.7, Bates % (Auto) 9.0, Eos % (Auto) 2.4, Baso % (Auto) 0.6, Absolute Neuts (auto) 4.4, Absolute Lymphs (auto) 1.29, Nucleated RBC % 0 06/08/20 06:00: Sodium 140, Potassium 3.6, Chloride 107, Carbon Dioxide 32.0, Anion Gap 1 L, BUN 18, Creatinine 0.96, Estim Creat Clear Calc 40.07, Est GFR (MDRD) Af Amer 72, Est GFR (MDRD) Non-Af 59 L, BUN/Creatinine Ratio 18.7, Glucose 89, Calcium 8.3 L, Total Bilirubin 0.40, AST 18, ALT 17, Alkaline Phosphatase 76, Total Protein 6.7, Albumin 3.0 L, Globulin 3.7, Albumin/Globulin Ratio 0.8 L 06/08/20 06:00: B-Natriuretic Peptide 356.9 H 06/08/20 08:55: NETO Screen Pending, ELAINE-1 Antibody Pending, SS-A/Ro IgG Antibody Pending, SS-B/La IgG Antibody Pending, Sm (Meyer) Antibody Pending, PRODUCT SAFETY MANAGER Antibody Pending, Scl-70 Scleroderma Ab Pending, Double Strand DNA Ab Pending, Centromere B Antibody Pending 06/08/20 08:55: c-ANCA Antibody Pending, p-ANCA Antibody Pending Current Medications Acetaminophen (Tylenol) 650 mg PO Q6H PRN PRN PRN Reason: Pain Score 1-10/Temp > 100.7 F Al Hydroxide/Mg Hydroxide (Mylanta Ii) 30 ml PO Q6H PRN PRN PRN Reason: Gastric Burning Albuterol Sulfate (Ventolin Aerosols) 2.5 mg INHALATION Q2H PRN PRN PRN Reason: Dyspnea, wheezing Dextrose (D50w Syringe) 0 gm IV X1 PRN; Protocol PRN Reason: Hypoglycemia Famotidine (Pepcid) 20 mg PO DAILY BECKY Last Admin: 06/07/20 22:13 Dose: 20 mg Documented by: Glucagon () 1 mg IM .X1 PRN PRN Reason: Hypoglycemia Guaifenesin (Robitussin) 20 ml PO Q4H PRN PRN PRN Reason: COUGH Hydralazine HCl (Apresoline Iv) 10 mg IV Q4H PRN PRN PRN Reason: SBP > 160 Sodium Chloride () 1,000 mls @ 100 mls/hr IV .Q10H [facility] Last Infusion: 06/08/20 09:10 Dose: 100 mls/hr Documented by: Ceftriaxone Sodium 2 gm/ (Sodium Chloride) 50 mls @ 100 mls/hr IV Q24@2200 [facility] Azithromycin 500 mg/ Dextrose 255 mls @ 250 mls/hr IV Q24@2200 [facility] Sodium Chloride () 250 mls @ 15 mls/hr IV .[id number] PRN PRN Reason: Saline Flush Sodium Chloride () 250 mls @ 15 mls/hr IV .[id number] PRN PRN Reason: Additional IVPB Infusion Lisinopril (Zestril) 30 mg PO DAILY [facility] Last Admin: 06/08/20 08:52 Dose: 30 mg Documented by: Magnesium Hydroxide (Milk Of Magnesia) 30 ml PO DAILY PRN PRN PRN Reason: Constipation Melatonin (Melatonin) 3 mg PO QHS PRN PRN PRN Reason: INSOMNIA Metoprolol Tartrate (Lopressor (Beta Rossana)) 50 mg PO BID [facility] Last Admin: 06/08/20 08:52 Dose: 50 mg Documented by: Morphine Sulfate () 2 mg IV Q3H PRN PRN PRN Reason: Pain Score 6-10/10 Nitroglycerin (Nitrostat) 0.4 mg SUBLINGUAL Q5M PRN PRN Reason: CARDIAC/CHEST PAIN Ondansetron HCl (Zofran) 4 mg IV Q8H PRN PRN PRN Reason: NAUSEA/VOMITING Oxycodone HCl (Oxyir) 5 mg PO Q4H PRN PRN PRN Reason: Pain Score 4-5/10 Prochlorperazine Edisylate (Compazine Iv) 5 mg IV Q4H PRN PRN PRN Reason: Breakthrough nausea/vomiting Psyllium Hydrophilic Mucilloid (Metamucil) 1 packet PO DAILY PRN PRN PRN Reason: Constipation Senna/Docusate Sodium (Senokot-S, Lily-Colace) 2 tablet PO BID PRN PRN PRN Reason: Constipation Sodium Chloride () 10 - 40 ml IV UD PRN PRN Reason: SALINE FLUSH Last Admin: 06/08/20 09:11 Dose: 10 ml Documented by: Throat Lozenges (Cepacol Sore Throat Lozenge) 1 lozenge MUCOUS MEM Q2H PRN PRN PRN Reason: SORE THROAT Discharge Diet: Low fat/ Low Cholesterol, 2000 mg Sodium Diet Discharge Activity: Return to Normal Activity Home Medications: Medications to take at Discharge Ergocalciferol [Vitamin D] 50,000 unit PO Q7D 07/07/17 Krill Oil 500 mg PO DAILY 06/07/20 Lisinopril 30 mg PO DAILY 06/07/20 Metoprolol Tartrate 50 mg PO BID 06/07/20 levoFLOXacin tablet [Levaquin tablet] 500 mg PO DAILY #5 tab 06/08/20 Following Prescrptions Were Given to Patient: levoFLOXacin tablet [Levaquin tablet] 500 mg PO DAILY #5 tab Transmission Status: Received by [id number] Primary Care Physician: Venkatesh Cox MD [STAFF PHYSICIAN] - Please follow up with your Primary Care Physician in: 1 week Please Follow Up With: Newton Ashley DO When: 2 weeks Disposition: Home Minutes spent on discharge:: 35 Patient Condition:: Stable Medical Necessity - Tobacco Use Smoking Status: Never smoker Tobacco Use: Non-smoker Meaningful Use Info Meaningful Use Diagnoses (Choose all that apply): None applicable
[2020-06-09 15:22] LABS: ANTINUCLEAR ANTIBODIES DIRECT Negative (Negative)
[2020-06-09 20:22] LABS: Cytoplasmic Ab (C-ANCA) <1:20 titer (Neg:<1:20); Perinuclear Ab (P-ANCA) <1:20 titer (Neg:<1:20)
== END 2020-06-08 11:00 | disposition home or self-care (01) | DRG 191 ==
LOC: ED 18:23 → ICU 19:32
PROVIDERS: Internal Medicine Critical Care Medicine; Admitting Provider Family Medicine; Emergency Provider Emergency Medicine; PCP Student in an Organized Health Care Education/Training Program; Referring Provider Family Medicine; Visit Provider Internal Medicine
DX: J47.0 Bronchiectasis with acute lower respiratory infection (principal); R04.2 Hemoptysis; J18.9 Pneumonia, unspecified organism; I12.9 Hypertensive chronic kidney disease with stage 1 through stage 4 chronic kidney disease, or unspecified chronic kidney disease; N18.3 Chronic kidney disease, stage 3 (moderate); Z66 Do not resuscitate; Z85.3 Personal history of malignant neoplasm of breast; Z87.440 Personal history of urinary (tract) infections; Z90.11 Acquired absence of right breast and nipple; Z90.710 Acquired absence of both cervix and uterus
CPT/HCPCS: 36415; 71046; 71250; 71275; 80053; 82728; 83605; 83615; 83735; 83880; 84145; 85025; 85379; 85610; 85730; 86038; 86140; 86225; 86235; 86256; 87449; 87633; 87635; 87641; 93005; 94799; 99251; 99285; J7030; J7050; Q9967; A4216; G0463; J0696; U0003

== ENCOUNTER 2021-04-10 20:10 | Emergency (ER) | payer MEDICARE, OTHER, SELFPAY ==
[2020-06-07 19:44] VITALS: BMI 19.9
[2021-04-10 20:22] VITALS: BP 212/98; PULSE 70; RESP 24; TEMP 36.8; O2SAT 93; BMI 23.8
[2021-04-10 20:32] VITALS: BP 215/93
--- NOTE | 2021-04-10 20:38 | EKG12_ITS ---
Test Reason : DYSRHYTHMIA Blood Pressure : / mmHG Vent. Rate : 064 BPM Atrial Rate : 064 BPM P-R Int : 172 ms QRS Dur : 086 ms QT Int : 440 ms P-R-T Axes : 053 004 085 degrees QTc Int : 453 ms Normal sinus rhythm Nonspecific ST and T wave abnormality Abnormal ECG Confirmed by YASMEEN RIBEIRO, ROSSANA ([id number]), offline editor LUBNA LEE ([id number]) on 04/12/2021 1:00:13 PM Referred By: CHEPE Confirmed By:ROSSANA ARANA MD
--- NOTE | 2021-04-10 20:39 | CT_ITS ---
STUDY: CT BRAIN WITHOUT CONTRAST REASON FOR EXAM: Female, 80 years old. light headed RADIATION DOSAGE (If Supplied By Facility): CTDIvol = ( 44.99 ) mGy, DLP = ( 796.11 ) mGycm TECHNIQUE: Transaxial CT imaging of the brain was performed without administration of intravenous contrast material. Individualized dose optimization techniques were used for this CT. COMPARISON: 07/07/2017 FINDINGS: Normal soft tissue structures. Normal calvarium. Calcification of cavernous carotids Mild atrophy and moderate to severe periventricular white matter ischemic changes. Normal basal ganglia and thalami. Normal brainstem. Normal cerebellum. There is no intracranial hemorrhage. There are no findings of an acute ischemic infarction. Postsurgical changes of the right orbit Normal visualized paranasal sinuses. CT/Brain/Head without Contrast IMPRESSION: Moderate to severe periventricular white matter ischemic change. No evidence for acute bleed.. If concern for acute infarct MRI recommended Electronically Signed: Mike Oconnor MD at 21:25 EDT , Service support ,
[2021-04-10 20:40] VITALS: O2SAT 94
--- NOTE | 2021-04-10 20:40 | EX.ED.DYSGE1 ---
HPI History of Present Illness Chief Complaint: Fatigue Narrative Narrative: 80-year-old female presenting for evaluation after she returned home from a long day of going to a parade and sitting outside. She states that she felt lightheaded for a couple of seconds and was slightly disoriented. She does have a history of dementia. She was able to sit down on the bed for a few minutes and felt better. She was brought by her and her son for evaluation. She denies any pain or nausea. They did not see any facial droop, slurred speech. They states she was moving all 4 extremities throughout. They feel she just overdid it today. [facility] Medical History Actinic skin damage Borderline abnormal TFTs Cerebral microvascular disease Dementia Hx of breast cancer Hypertension Inflamed seborrheic keratosis Late onset Alzheimer's dementia without behavioral disturbance Lipoma Osteoporosis Rosacea Solar lentigo Tongue lesion Viral warts Vitamin D deficiency Home Medications ergocalciferol (vitamin D2) [Vitamin D2] 50,000 unit PO Q7D 07/07/17 [History Last Taken 06/06/20] krill oil 500 mg PO DAILY 06/07/20 [History Last Taken 06/07/20] lisinopril 30 mg PO DAILY 06/07/20 [History Last Taken 06/07/20] metoprolol tartrate 50 mg PO BID 06/07/20 [History Last Taken 06/07/20] albuterol sulfate 2 puff INHALATION Q4H PRN 04/10/21 [History Last Taken Unknown] aspirin [Baby Aspirin] 81 mg PO DAILY 04/10/21 [History Last Taken Unknown] sertraline 100 mg PO QHS 04/10/21 [History Last Taken Unknown] Allergy/AdvReac Type Severity Reaction Status Date / Time No Known Allergies Allergy Verified 04/10/21 20:21 Surgical History H/O mastectomy Social History Smoking Status: Never smoker ROS ROS ED Constitutional Constitutional ED: Denies chills, fever(s) or sweats Eyes Eyes: Denies blurry vision or change in vision ENT ENT ED: Denies ear pain, rhinorrhea or sore throat Cardiovascular Cardiovascular: Reports other Details: Lightheadedness ; Denies chest pain, palpitations or racing heartbeat Respiratory/Chest Respiratory/Chest: Denies cough, dyspnea or sputum Gastrointestinal Gastrointestinal: Denies abdominal pain, constipation, diarrhea or vomiting Genitourinary Genitourinary ED: Denies dysuria, hematuria or urinary frequency Musculoskeletal Musculoskeletal: Denies arthralgias, myalgias or neck pain Integumentary Denies abscess, Abrasions or rash Neurologic Neurologic: Denies headache(s), paresthesias or weakness Psychiatric Psychiatric: Denies anxiety, depression, suicidal ideation or suicidal thoughts Endocrine Endocrinology: Denies polydipsia or polyuria EXAM Physical Exam Const Vital Signs: 04/10/21 20:22 04/10/21 20:26 04/10/21 20:32 Temperature 98.3 F Temperature Source Oral Pulse Rate 70 Respiratory Rate 24 H Respiratory Effort Normal Non-Labored Respiratory Pattern Normal Blood Pressure 212/98 H 215/93 H Blood Pressure Mean 136 133 Pulse Ox 93 Oxygen Delivery Method Room Air 04/10/21 20:40 04/10/21 21:24 Temperature Temperature Source Pulse Rate 58 L Respiratory Rate 20 H Respiratory Effort Respiratory Pattern Blood Pressure 188/88 H Blood Pressure Mean 121 Pulse Ox 94 94 Oxygen Delivery Method Room Air Room Air Positive well nourished General Appearance ED: NAD; Negative for pallor HEENT Reports normocephalic, head/scalp atraumatic and moist mucous membranes Negative for trauma Eyes PERRL and EOMs intact bilaterally Neck no lymphadenopathy and supple Resp normal respiratory effort and clear to auscultation bilaterally Auscultation: Negative for rales, rhonchi or wheezes Cardio regular rate and regular rhythm GI normal to inspection, nondistended, normoactive bowel sounds and non-distended Auscultation: normoactive bowel sounds Palpation: soft Narrative: Deferred Extremity normal to inspection General Extremety ED: Negative for edema or tenderness General Extremity: Negative for edema Neuro oriented x3 and CN's II-XII intact bilaterally Sensorium / Orientation: alert Motor Exam: strength 5/5 throughout Psych mental status grossly normal Attitude: No agitated Skin no rashes or lesions noted and no wounds General Skin Exam: Negative for jaundice or pallor MDM MDM MDM Narrative Medical decision making narrative: 80-year-old female presenting with an episode of lightheadedness which resolved. She does not appear to have had any kind of TIA and there was no facial droop, slurred speech, inability to move her extremities. She feels well now. She had arrival EKG which was sinus rhythm at 64 bpm without signs of ischemic change as interpreted by myself. Chest x-ray as interpreted by the radiologist shows right upper lobe scarring and left lower lobe infiltrate versus atelectasis. By my interpretation I believe this is atelectasis and given that the patient has no white blood cell count or respiratory complaints I do not believe she needs antibiotics. Patient was noted to have elevated blood pressure today and she was given 5 mg of hydralazine and did respond. Her lab work was otherwise unremarkable. Urinalysis is negative. CT brain is negative for acute findings but does show moderate to severe white matter ischemic changes. Patient and family counseled on findings and are amenable to being discharged home at this time. I recommended to the family that they watch her blood pressure and if it continues to stay elevated they should follow-up with her primary care physician to have her medications adjusted. Impression: Rogelio #1 lightheadedness resolved Lab Data Labs: Laboratory Results - last 24 hr 04/10/21 04/10/21 04/10/21 20:35 20:35 20:45 WBC 8.3 RBC 4.61 Hgb 13.7 Hct 41.4 MCV 89.8 MCH 29.7 MCHC 33.1 RDW Std Deviation 42.3 RDW Coeff of Juan 12.7 Plt Count 241 MPV 10.5 Immature Gran % (Auto) 0.400 Neut % (Auto) 59.4 Lymph % (Auto) 27.0 [place] % (Auto) 10.2 H Eos % (Auto) 2.2 Baso % (Auto) 0.8 Absolute Neuts (auto) 4.9 Absolute Lymphs (auto) 2.24 Nucleated RBC % 0 Sodium 138 Potassium 3.6 Chloride 103 Carbon Dioxide 30.0 Anion Gap 5 BUN 23 H Creatinine 1.20 H Estim Creat Clear Calc 33.09 Est GFR (MDRD) Af Amer 55 L Est GFR (MDRD) Non-Af 46 L BUN/Creatinine Ratio 19.2 Glucose 103 Calcium 9.1 Troponin I < 0.015 Urine Color Yellow Urine Clarity Clear Urine pH 8.0 Ur Specific [place] 1.015 Urine Protein Negative Urine Glucose (UA) Normal Urine Ketones Negative Urine Occult Blood Negative Urine Nitrite Negative Urine Bilirubin Negative Urine Urobilinogen Normal Ur Leukocyte Esterase Negative Urine RBC 0 SEEN Urine WBC 0 SEEN Ur Squamous Epith Cells 0-5 SEEN Urine Bacteria 0 SEEN Urine Mucus 0 SEEN Radiography Diagnostic Testing: Radiology Impression Brain CT 04/10/21 20:39 IMPRESSION: Moderate to severe periventricular white matter ischemic change. No evidence for acute bleed.. If concern for acute infarct MRI recommended Electronically Signed: Mike Oconnor MD at 21:25 EDT , Service support , Chest X-Ray 04/10/21 21:02 IMPRESSION: Chronic changes in the right upper lobe and possible left lower lobe atelectasis or infiltrate. Electronically Signed: Mike Oconnor MD at 21:23 EDT , Service support , Discharge Plan Triage Chief Complaint: Fatigue ED Provider: Miah Jones Dx/Rx/DC Orders Instructions: ED Weakness (Uncertain Cause) Prescriptions: No Action ergocalciferol (vitamin D2) [Vitamin D2] 50,000 UNIT capsule 50,000 unit PO Q7D RF: 0 lisinopril 30 MG tablet 30 mg PO DAILY RF: 0 metoprolol tartrate 50 MG tablet 50 mg PO BID RF: 0 krill oil 500 MG capsule 500 mg PO DAILY RF: 0 sertraline 100 mg tablet 100 mg PO QHS RF: 0 aspirin [Baby Aspirin] 81 mg Tablet,Chewable 81 mg PO DAILY RF: 0 albuterol sulfate 90 mcg/actuation HFA aerosol inhaler 2 puff INHALATION Q4H PRN (Reason: Shortness Of Breath Or Wheezing) RF: 0 Primary Care Provider: Lawson Ramos Referrals: Lawson Ramos [Primary Care Provider] - Disposition Disposition: Home, self care
[2021-04-10 20:56] LABS: Absolute Lymphocyte Count 2.24 X10^3/uL (0.83-4.51); Absolute Neutrophil Count 4.9 X10^3/uL (2.0-7.7); Basophil# 0.07 X10^3/uL; Basophil% 0.8 % (0-1); Eosinophil# 0.18 X10^3/uL; Eosinophils% 2.2 % (0-5); Hematocrit 41.4 % (37-47); Hemoglobin 13.7 g/dL (12.0-15.0); Lymphocyte # 2.24 X10^3/ul (0.83-4.51); Mean Corp Hgb Conc 33.1 g/dL (32-36); Mean Corpuscular Hgb 29.7 pg (27.0-32.0); Mean Corpuscular Volume 89.8 fL (81-99); Mean Platelet Vol. 10.5 fl (6.2-12.0); Monocyte# 0.85 X10^3/uL; Monocyte% 10.2 % (0-10); NRBC Flagged by Analyzer 0 % (0-5); Neutrophil # 4.94 X10^3/uL (2.7-7.7); Neutrophil % 59.4 % (47-70); Platelet Count 241 K/mm3 (150-450); RBC Distribution Width CV 12.7 % (11.6-14.6); RBC Distribution Width SD 42.3 fl (35.1-43.9); Red Blood Count 4.61 M/mm3 (4.2-5.4); White Blood Count 8.3 K/mm3 (4.4-11.0)
--- NOTE | 2021-04-10 21:02 | RAD_ITS ---
STUDY: X-RAY CHEST REASON FOR EXAM: Female, 80 years old. lightheaded TECHNIQUE: AP portable COMPARISON: 06/05/2020 FINDINGS: Prominence of the interstitial markings in the right upper lobe.. There is also prominence of the markings in left lower lobe possibly atelectasis or infiltrate. Surgical clips are seen projecting over the right upper chest wall There is no demonstrated pleural abnormality. Normal size heart. Normal mediastinum and татьяна. Normal visualized pulmonary arteries. Tortuous mildly calcified aortic arch and descending thoracic aorta. Normal visualized thoracic spine. Normal visualized ribs, clavicles, and shoulders. There is no demonstrated abnormality of the visualized soft tissue structures of the upper abdomen. Left lower lobe density is a new finding since prior exam RAD/Chest 1 View (Portable) IMPRESSION: Chronic changes in the right upper lobe and possible left lower lobe atelectasis or infiltrate. Electronically Signed: Mike Oconnor MD at 21:23 EDT , Service support ,
[2021-04-10 21:24] VITALS: BP 188/88; PULSE 58; RESP 20; O2SAT 94
[2021-04-10 21:24] LABS: Anion Gap 5 (5-15); BUN 23 mg/dL (7-18); BUN/Creat Ratio 19.2 RATIO (10-20); Calcium,Total 9.1 mg/dL (8.5-10.1); Chloride 103 mmol/L (98-107); EST Glomerular Filtration Rate 46 mL/min (>60); Est Glom Filt Rate - Afr Amer 55 mL/min (>60); Estimated Creatinine Clearance 33.09 ml/min; Glucose 103 mg/dL (74-106); Potassium 3.6 mmol/L (3.5-5.1); Sodium Level 138 mmol/L (136-145)
[2021-04-10] MEDS: Aspirin 81 MG TAB.CHEW 324 MG PO (21:25)
[2021-04-10] MEDS: hydrALAZINE 20 MG/ML Vial 5 MG IV (21:26)
[2021-04-10 21:36] LABS: Bacteria 0 SEEN /hpf (None Seen); Color, Urine Yellow (Yellow); Glucose, Dipstick Normal (Normal); Ketone-Dipstick Negative (Negative); Leukocyte Esterase-Dipstick Negative /ul (Negative); Mucous, Urine 0 SEEN /hpf (<or=2+); Nitrite-Dipstick Negative (Negative); Occult Blood-Urine Negative /ul (Negative); Protein-Dipstick Negative (Negative); Red Blood Cells-Urine 0 SEEN /hpf (0-5); Specific Gravity, Urine 1.015 (1.002-1.030); Urine Bilirubin Dipstick Negative (Negative); Urine Clarity Clear (Clear); Urine Urobilinogen Normal (Normal); White Blood Cells 0 SEEN /hpf (0-5)
[2021-04-10 21:42] LABS: Squamous Epithelial Cells - UA 0-5 SEEN /hpf (5-10)
[2021-04-10 21:58] VITALS: BP 147/66; PULSE 70; RESP 18; O2SAT 94
== END 2021-04-10 22:07 | disposition home or self-care (01) ==
PROVIDERS: Emergency Provider Student in an Organized Health Care Education/Training Program; PCP Student in an Organized Health Care Education/Training Program
DX: R53.83 Other fatigue (principal); I67.82 Cerebral ischemia; R42 Dizziness and giddiness; I10 Essential (primary) hypertension; F02.80 Dementia in other diseases classified elsewhere, unspecified severity, without behavioral disturbance, psychotic disturbance, mood disturbance, and anxiety; G30.1 Alzheimer's disease with late onset; Z79.82 Long term (current) use of aspirin; Z85.3 Personal history of malignant neoplasm of breast
CPT/HCPCS: 70450; 71045; 80048; 81001; 84484; 85025; 93005; 96374; 99285; A4216

== ENCOUNTER 2021-07-02 11:22 | Emergency (ER) | payer MEDICARE, OTHER, SELFPAY ==
[2021-07-02 11:25] VITALS: BP 145/69; PULSE 77; RESP 20; TEMP 37.8; O2SAT 94; BMI 20.7
--- NOTE | 2021-07-02 11:39 | CT_ITS ---
STUDY: CT BRAIN WITHOUT CONTRAST REASON FOR EXAM: Female, 81 years old. headache RADIATION DOSAGE (If Supplied By Facility): CTDIvol = ( 44.99 ) mGy, DLP = ( 796.11 ) mGycm TECHNIQUE: Transaxial CT imaging of the brain was performed without administration of intravenous contrast material. Individualized dose optimization techniques were used for this CT. COMPARISON: 04/10/2021 FINDINGS: Normal soft tissue structures. Normal calvarium. There is moderate cerebral atrophy with widening of the extra-axial spaces and ventricular dilatation. There are areas of decreased attenuation within the white matter tracts of the supratentorial brain, consistent with microvascular disease changes. Normal basal ganglia and thalami. Normal brainstem. Normal cerebellum. There is no intracranial hemorrhage. There are no findings of an acute ischemic infarction. Normal visualized paranasal sinuses. CT/Brain/Head without Contrast IMPRESSION: Chronic involutional changes of the brain. Electronically Signed: Jefry Dyson MD at 12:31 EDT Tel , Service support ,
--- NOTE | 2021-07-02 11:39 | RAD_ITS ---
STUDY: X-RAY CHEST REASON FOR EXAM: Female, 81 years old. cough TECHNIQUE: Single AP portable view of the chest. COMPARISON: 04/10/2021 FINDINGS: Status post right axillary lymph node dissection. There is hyperinflation of the lungs consistent with chronic obstructive lung disease (COPD). There is no demonstrated pleural abnormality. Normal size heart. Normal mediastinum and татьяна. Normal visualized pulmonary arteries. Normal visualized aortic arch and descending thoracic aorta. Normal visualized thoracic spine. Normal visualized ribs, clavicles, and shoulders. There is no demonstrated abnormality of the visualized soft tissue structures of the upper abdomen. RAD/Chest 1 View (Portable) IMPRESSION: Emphysema without pneumonia or atelectasis per Electronically Signed: Jefry Dyson MD at 12:28 EDT Tel , Service support ,
--- NOTE | 2021-07-02 11:42 | EDS_ITS ---
HPI History of Present Illness Chief Complaint: Headache Informant: patient and family Onset/Context/Timing Onset: Days (3 days) Context: Gradual Onset Narrative Narrative: Patient presents secondary to headache and not feeling well. Patient's daughter states that she is just not been herself the last 3 to 4 days. She did not want to lay around more than normal. She not been eating as much as normal. Last night she start developing low-grade fever around 100. This morning she is complaining of a right frontal headache. No fall or injury. [facility] Medical History Actinic skin damage Borderline abnormal TFTs Cerebral microvascular disease Dementia Hx of breast cancer Hypertension Inflamed seborrheic keratosis Late onset Alzheimer's dementia without behavioral disturbance Lipoma Osteoporosis Rosacea Solar lentigo Tongue lesion Viral warts Vitamin D deficiency Home Medications ergocalciferol (vitamin D2) [Vitamin D2] 50,000 unit PO Q7D 07/07/17 [History Last Taken 06/06/20] krill oil 500 mg PO DAILY 06/07/20 [History Last Taken 06/07/20] lisinopril 30 mg PO DAILY 06/07/20 [History Last Taken 06/07/20] metoprolol tartrate 50 mg PO BID 06/07/20 [History Last Taken 06/07/20] albuterol sulfate 2 puff INHALATION Q4H PRN 04/10/21 [History Last Taken Unknown] aspirin [Baby Aspirin] 81 mg PO DAILY 04/10/21 [History Last Taken Unknown] sertraline 100 mg PO QHS 04/10/21 [History Last Taken Unknown] nitrofurantoin monohyd/m-cryst [Macrobid] 100 mg PO Q12H 7 Days #14 cap 07/02/21 [Rx Last Taken Unknown] Allergy/AdvReac Type Severity Reaction Status Date / Time No Known Allergies Allergy Verified 07/02/21 11:29 Surgical History H/O mastectomy Social History Smoking Status: Never smoker ROS ROS ED Constitutional Constitutional ED: Reports fever(s) Eyes Eyes: Denies blurry vision or change in vision ENT ENT ED: Denies rhinorrhea or sore throat Cardiovascular Cardiovascular: Denies chest pain or palpitations Respiratory/Chest Respiratory/Chest: Reports cough Gastrointestinal Gastrointestinal: Reports nausea; Denies abdominal pain or vomiting Genitourinary Genitourinary ED: Reports urinary frequency; Denies dysuria Musculoskeletal Musculoskeletal: Reports myalgias Integumentary Denies rash Neurologic Neurologic: Reports headache(s) and weakness Psychiatric Psychiatric: Denies anxiety or depression Endocrine Endocrinology: Denies polydipsia or polyuria Allergic/Immunologic Allergic/Immunologic ED: Denies urticaria EXAM Physical Exam Const Vital Signs: 07/02/21 11:25 07/02/21 14:42 Temperature 100.0 F H 98.6 F Temperature Source Oral Temporal Pulse Rate 77 71 Respiratory Rate 20 H 16 Blood Pressure 145/69 H 119/65 Blood Pressure Mean 94 83 Pulse Ox 94 94 Oxygen Delivery Method Room Air Room Air Positive well nourished and well developed General Appearance ED: well developed Eyes PERRL and EOMs intact bilaterally Neck supple Neck Narrative: No meningismus Chest Wall inspection of chest normal and palpation of chest normal Resp normal respiratory effort and clear to auscultation bilaterally Cardio regular rate and regular rhythm GI normal to inspection, nondistended, normoactive bowel sounds and non-tender Palpation: soft Extremity normal to inspection Neuro Neuro Narrative: No focal neuro deficits. Baseline Alzheimer's dementia. Sensorium / Orientation: alert Skin no rashes or lesions noted MDM MDM MDM Narrative Medical decision making narrative: Patient was given Toradol for her headache. Lab work, urinalysis, chest x-ray, Covid swab obtained. Head CT ordered. Lab Data Attestation: I reviewed the patient's lab results. Labs: Laboratory Results - last 24 hr 07/02/21 07/02/21 07/02/21 12:10 12:10 12:10 WBC 14.5 H RBC 3.99 L Hgb 11.9 L Hct 35.9 L MCV 90.0 MCH 29.8 MCHC 33.1 RDW Std Deviation 43.1 RDW Coeff of Juan 13.0 Plt Count 203 MPV 10.6 Immature Gran % (Auto) 0.700 Neut % (Auto) 87.3 H Lymph % (Auto) 4.5 L [place] % (Auto) 7.4 Eos % (Auto) 0.0 Baso % (Auto) 0.1 Absolute Neuts (auto) 12.7 H Absolute Lymphs (auto) 0.65 L Nucleated RBC % 0 D-Dimer Quant (PE/DVT) 2.99 H* Sodium 136 Potassium 3.6 Chloride 101 Carbon Dioxide 27.0 Anion Gap 8 BUN 23 H Creatinine 1.19 H Estim Creat Clear Calc 32.62 Est GFR (MDRD) Af Amer 56 L Est GFR (MDRD) Non-Af 46 L BUN/Creatinine Ratio 19.3 Glucose 116 H Calcium 8.5 Troponin I High Sens 16 Urine Color Urine Clarity Urine pH Ur Specific [place] Urine Protein Urine Glucose (UA) Urine Ketones Urine Occult Blood Urine Nitrite Urine Bilirubin Urine Urobilinogen Ur Leukocyte Esterase Urine RBC Urine WBC Ur Squamous Epith Cells Urine Bacteria Urine Mucus 07/02/21 14:35 WBC RBC Hgb Hct MCV MCH MCHC RDW Std Deviation RDW Coeff of Juan Plt Count MPV Immature Gran % (Auto) Neut % (Auto) Lymph % (Auto) [place] % (Auto) Eos % (Auto) Baso % (Auto) Absolute Neuts (auto) Absolute Lymphs (auto) Nucleated RBC % D-Dimer Quant (PE/DVT) Sodium Potassium Chloride Carbon Dioxide Anion Gap BUN Creatinine Estim Creat Clear Calc Est GFR (MDRD) Af Amer Est GFR (MDRD) Non-Af BUN/Creatinine Ratio Glucose Calcium Troponin I High Sens Urine Color Yellow Urine Clarity Clear Urine pH 6.0 Ur Specific [place] 1.005 Urine Protein 100 H Urine Glucose (UA) Normal Urine Ketones Negative Urine Occult Blood 250 H Urine Nitrite Negative Urine Bilirubin Negative Urine Urobilinogen 1 H Ur Leukocyte Esterase 500 H Urine RBC 0 SEEN Urine WBC 50-100 SEEN Ur Squamous Epith Cells 5-10 SEEN Urine Bacteria 2+ Urine Mucus 0 SEEN Radiography Chest X-Ray - ED: 1 View, Read by ED Physician and Chronic Changes Diagnostic Testing: Radiology Impression Brain CT 07/02/21 11:39 IMPRESSION: Chronic involutional changes of the brain. Electronically Signed: Jefry Dyson MD at 12:31 EDT Tel , Service support , Chest X-Ray 07/02/21 11:39 IMPRESSION: Emphysema without pneumonia or atelectasis per Electronically Signed: Jefry Dyson MD at 12:28 EDT Tel , Service support , Chest CTA 07/02/21 13:13 IMPRESSION: 1. Chronic fibrotic changes and subsegmental atelectasis of both lungs 2. No demonstrated pneumonic consolidation or pleural effusion 3. No demonstrated pulmonary embolism or arterial dissection. Electronically Signed: Natanael Kowalski MD at 14:40 EDT , Service support , Treatment and Re-Evaluation Comments:: Patient observed on monitor and storage bin tender throughout her ED stay. Normal sinus rhythm with unremarkable vital signs. Patient's temperature did improve with Toradol. Covid swab is negative. Blood work significant for leukocytosis with a white count of 14.5. Urinalysis does show infection with 50-100 white cells and 2+ bacteria. CTA of the chest is negative for PE or infiltrate. Test results discussed with patient and daughter at bedside. She is comfortable caring for her mom at home. Patient will be given a dose of IV Rocephin here an d urine culture sent. She will be discharged home on Macrobid. Discharge Plan Triage Chief Complaint: Headache ED Provider: Fernanda Thomason Dx/Rx/DC Orders Clinical Impression: Cystitis Instructions: ED CYSTITIS Female Adult Prescriptions: New nitrofurantoin monohyd/m-cryst [Macrobid] 100 mg capsule 100 mg PO Q12H 7 Days Qty: 14 RF: 0 No Action ergocalciferol (vitamin D2) [Vitamin D2] 50,000 UNIT capsule 50,000 unit PO Q7D RF: 0 lisinopril 30 MG tablet 30 mg PO DAILY RF: 0 metoprolol tartrate 50 MG tablet 50 mg PO BID RF: 0 krill oil 500 MG capsule 500 mg PO DAILY RF: 0 sertraline 100 mg tablet 100 mg PO QHS RF: 0 aspirin [Baby Aspirin] 81 mg Tablet,Chewable 81 mg PO DAILY RF: 0 albuterol sulfate 90 mcg/actuation HFA aerosol inhaler 2 puff INHALATION Q4H PRN (Reason: Shortness Of Breath Or Wheezing) RF: 0 Primary Care Provider: Lawson Ramos Referrals: Lawson Ramos [Primary Care Provider] - 3-5 Days if not improving Disposition Disposition: Home, Self Care
[2021-07-02] MEDS: Ketorolac 15 MG/ML Vial IV (12:05)
[2021-07-02 12:22] LABS: Absolute Lymphocyte Count 0.65 X10^3/uL (0.83-4.51); Absolute Neutrophil Count 12.7 X10^3/uL (2.0-7.7); Basophil# 0.02 X10^3/uL; Basophil% 0.1 % (0-1); Hematocrit 35.9 % (37-47); Hemoglobin 11.9 g/dL (12.0-15.0); Lymphocyte # 0.65 X10^3/ul (0.83-4.51); Lymphocyte % 4.5 % (19-41); Mean Corp Hgb Conc 33.1 g/dL (32-36); Mean Corpuscular Hgb 29.8 pg (27.0-32.0); Mean Platelet Vol. 10.6 fl (6.2-12.0); Monocyte# 1.07 X10^3/uL; Monocyte% 7.4 % (0-10); NRBC Flagged by Analyzer 0 % (0-5); Neutrophil # 12.65 X10^3/uL (2.7-7.7); Neutrophil % 87.3 % (47-70); Platelet Count 203 K/mm3 (150-450); RBC Distribution Width SD 43.1 fl (35.1-43.9); Red Blood Count 3.99 M/mm3 (4.2-5.4); White Blood Count 14.5 K/mm3 (4.4-11.0)
[2021-07-02 12:37] LABS: Anion Gap 8 (5-15); BUN 23 mg/dL (7-18); BUN/Creat Ratio 19.3 RATIO (10-20); Calcium,Total 8.5 mg/dL (8.5-10.1); Chloride 101 mmol/L (98-107); Creatinine, Serum 1.19 mg/dL (0.55-1.02); EST Glomerular Filtration Rate 46 mL/min (>60); Est Glom Filt Rate - Afr Amer 56 mL/min (>60); Estimated Creatinine Clearance 32.62 ml/min; Glucose 116 mg/dL (74-106); Potassium 3.6 mmol/L (3.5-5.1); Sodium Level 136 mmol/L (136-145); Troponin-I HS 16 pg/mL (3.0-54.0)
[2021-07-02 13:01] LABS: D-Dimer Quantitative (DVT/PE) 2.99 FEU/ug/m (0.27-0.49)
--- NOTE | 2021-07-02 13:13 | CT_ITS ---
STUDY: CTA CHEST REASON FOR EXAM: Female, 81 years old. pulmonary embolism RADIATION DOSAGE (If Supplied By Facility): CTDIvol = ( 5.49 ) mGy, DLP = ( 181.21 ) mGycm TECHNIQUE: The examination was performed with the intravenous administration of IV 75mL Isovue-370. Post-processing of the angiographic images was performed, with multiplanar reformation and 3D reconstruction. Individualized dose optimization techniques were used for this CT. COMPARISON: CT of the chest dated June 08, 2020 FINDINGS: Mild subsegmental atelectasis is present in the right middle lobe and in the lingula of the left upper lobe with mild to moderate bronchiectasis, right greater than left. Small linear opacities or foci of atelectasis are present right lung base. Small islands of round glass edema and interstitial thickening is scattered throughout both lungs. Sequela from previous consolidation in the posterior lateral aspect of the right upper lobe and right lower lobe reidentified. Normal enhancement of the main pulmonary artery and right and left pulmonary arteries. Normal enhancement of the bilateral peripheral pulmonary arteries. There is no demonstrated pulmonary embolism. There is atherosclerotic calcification of the aortic arch with tortuosity. There is no demonstrated aortic dissection. Normal heart and pericardium. Normal mediastinum. Normal hilar regions. Normal visualized trachea and bronchi. The lungs are well expanded. Normal pleura. Normal chest wall structures. There are degenerative changes of thoracic spine. Mild mesenteric edema and right perinephric chronic stranding reidentified likely due to chronic inflammation. CT/CTA Chest W/WO Contrast IMPRESSION: 1. Chronic fibrotic changes and subsegmental atelectasis of both lungs 2. No demonstrated pneumonic consolidation or pleural effusion 3. No demonstrated pulmonary embolism or arterial dissection. Electronically Signed: Natanael Kowalski MD at 14:40 EDT , Service support ,
[2021-07-02 14:42] VITALS: BP 119/65; PULSE 71; RESP 16; TEMP 37; O2SAT 94
[2021-07-02 14:44] LABS: Mucous, Urine 0 SEEN /hpf (<or=2+); Red Blood Cells-Urine 0 SEEN /hpf (0-5)
[2021-07-02 14:47] LABS: Color, Urine Yellow (Yellow); Glucose, Dipstick Normal (Normal); Ketone-Dipstick Negative (Negative); Leukocyte Esterase-Dipstick 500 /ul (Negative); Nitrite-Dipstick Negative (Negative); Occult Blood-Urine 250 /ul (Negative); Protein-Dipstick 100 mg/dl (Negative); Specific Gravity, Urine 1.005 (1.002-1.030); Urine Bilirubin Dipstick Negative (Negative); Urine Clarity Clear (Clear); Urine Urobilinogen 1 mg/dl (Normal)
[2021-07-02 14:53] LABS: Bacteria 2+ /hpf (None Seen); Squamous Epithelial Cells - UA 5-10 SEEN /hpf (5-10); White Blood Cells 50-100 SEEN /hpf (0-5)
[2021-07-02] MEDS: Ceftriaxone 1 GM/50 ML BAG IV (15:25)
[2021-07-02 15:49] VITALS: BP 152/72
== END 2021-07-02 16:06 | disposition home or self-care (01) ==
PROVIDERS: Emergency Provider Emergency Medicine; PCP Student in an Organized Health Care Education/Training Program
DX: N30.90 Cystitis, unspecified without hematuria (principal); F02.80 Dementia in other diseases classified elsewhere, unspecified severity, without behavioral disturbance, psychotic disturbance, mood disturbance, and anxiety; I10 Essential (primary) hypertension; G30.1 Alzheimer's disease with late onset; E55.9 Vitamin D deficiency, unspecified; Z79.82 Long term (current) use of aspirin; Z85.3 Personal history of malignant neoplasm of breast; Z86.711 Personal history of pulmonary embolism
CPT/HCPCS: 70450; 71045; 71275; 80048; 81001; 84484; 85025; 85379; 87086; 87088; 87186; 87426; 96365; 96375; 99285; J7050; P9612; Q9967; A4216

== ENCOUNTER 2021-07-22 10:49 | Emergency (ER) | payer MEDICARE, OTHER, SELFPAY ==
[2021-07-22 10:52] VITALS: BP 143/73; PULSE 53; RESP 16; TEMP 36.5; O2SAT 94; BMI 24.5
--- NOTE | 2021-07-22 11:08 | EKG12_ITS ---
Test Reason : Blood Pressure : / mmHG Vent. Rate : 052 BPM Atrial Rate : 052 BPM P-R Int : 144 ms QRS Dur : 084 ms QT Int : 472 ms P-R-T Axes : 042 003 032 degrees QTc Int : 438 ms Sinus bradycardia Otherwise normal ECG Confirmed by SUNIL RIBEIRO, GENNA ([id number]), editor news LUBNA LEE ([id number]) on 07/24/2021 1:28:54 PM Referred By: RAGHU Confirmed By:GENNA BARBER MD
--- NOTE | 2021-07-22 11:09 | EX.ED.DYSGE1 ---
HPI History of Present Illness Chief Complaint: Syncope Informant: patient and EMS Onset/Context/Timing Onset: Today Context: Gradual Onset Timing: Intermittent (once) and Lasts (couple mins) Quality: syncope Current Severity: Gone Maximum Severity: Severe Worsened by: nothing Relieved by: nothing Associated Symptoms Associated Symptoms: prodromal lightheadedness only; now just tired Narrative Narrative: [place], she had been sitting there for a little while and all of a sudden started feeling lightheaded. She was sitting with the family and told them, and subsequently then she lost consciousness and passed out. When she awoke she was still in the bleachers and did not fall or injure herself. Family was helping her. This is not happened before. She was feeling fine prior to this. She ate and drank this morning and her appetite has been fine, she denies having any prodromal chest discomfort, dyspnea, headache, focal neurologic symptoms, and does not have any of those symptoms now. She does not know her medications well, but does know that she is on metoprolol, she does not know if her doctor has changed it recently for any reason. She denies any history of pulmonary issues, she states she had chemotherapy in the past for breast cancer, and it gave her congestive heart failure, she does not know if she still has it because she does not have any ongoing heart issues or symptoms. [facility] Medical History Actinic skin damage Borderline abnormal TFTs Cerebral microvascular disease Dementia Hx of breast cancer Hypertension Inflamed seborrheic keratosis Late onset Alzheimer's dementia without behavioral disturbance Lipoma Osteoporosis Rosacea Solar lentigo Tongue lesion Viral warts Vitamin D deficiency Home Medications ergocalciferol (vitamin D2) [Vitamin D2] 50,000 unit PO Q7D 07/07/17 [History Last Taken 06/06/20] krill oil 500 mg PO DAILY 06/07/20 [History Last Taken 06/07/20] lisinopril 30 mg PO DAILY 06/07/20 [History Last Taken 06/07/20] metoprolol tartrate 50 mg PO BID 06/07/20 [History Last Taken 06/07/20] albuterol sulfate 2 puff INHALATION Q4H PRN 04/10/21 [History Last Taken Unknown] aspirin 81 mg PO DAILY 04/10/21 [History Last Taken Unknown] sertraline 100 mg PO QHS 04/10/21 [History Last Taken Unknown] Allergy/AdvReac Type Severity Reaction Status Date / Time No Known Allergies Allergy Verified 07/22/21 10:56 Surgical History H/O mastectomy Social History Smoking Status: Never smoker ROS ROS ED Constitutional Constitutional ED: Reports malaise; Denies anorexia, chills or fever(s) Eyes Eyes: Denies change in vision or diplopia ENT ENT ED: Denies rhinorrhea or sore throat Cardiovascular Cardiovascular: Denies chest pain, orthopnea or palpitations Respiratory/Chest Respiratory/Chest: Denies cough, dyspnea, dyspnea on exertion, orthopnea or portable oxygen @ home Gastrointestinal Gastrointestinal: Denies abdominal pain, diarrhea, nausea or vomiting Genitourinary Genitourinary ED: Denies dysuria or hematuria Musculoskeletal Musculoskeletal: Denies back pain or neck pain Integumentary Denies abscess or rash Neurologic Neurologic: Denies headache(s), paresthesias or weakness Psychiatric Psychiatric: Denies anxiety or suicidal thoughts EXAM Physical Exam Const Vital Signs: 07/22/21 10:52 07/22/21 11:11 07/22/21 11:57 Temperature 97.7 F L Temperature Source Oral Pulse Rate 53 L 51 L Respiratory Rate 16 13 Respiratory Effort Normal Non-Labored Respiratory Pattern Normal Blood Pressure 143/73 H 147/58 H Blood Pressure Mean 96 87 Pulse Ox 94 97 Oxygen Delivery Method Room Air Room Air 07/22/21 13:07 07/22/21 13:54 07/22/21 14:53 Temperature Temperature Source Pulse Rate 63 60 Respiratory Rate 17 12 Respiratory Effort Respiratory Pattern Blood Pressure 189/90 H 194/98 H 180/90 H Blood Pressure Mean 123 130 120 Pulse Ox 96 98 Oxygen Delivery Method Room Air Room Air 07/22/21 15:42 Temperature Temperature Source Pulse Rate 60 Respiratory Rate 12 Respiratory Effort Respiratory Pattern Blood Pressure 146/70 H Blood Pressure Mean 95 Pulse Ox 92 Oxygen Delivery Method Room Air Positive well nourished and well developed General Appearance ED: well developed and NAD HEENT Reports moist mucous membranes normocephalic and atraumatic Eyes PERRL and EOMs intact bilaterally Neck full ROM and supple Resp normal respiratory effort and clear to auscultation bilaterally Cardio regular rate, regular rhythm and no murmurs Cardio Narrative: Borderline bradycardia with heart rate in the low 50s Peripheral Pulses: pulses 2+ throughout GI non-tender and non-distended Auscultation: normoactive bowel sounds Palpation: soft Back/Spine no CVA tenderness General Back: other FROM Extremity normal to inspection and no calf tenderness General Extremety ED: Negative for edema, pulses abnormal or tenderness General Extremity: Negative for edema or pulses abnormal Neuro oriented x3, CN's II-XII intact bilaterally, no focal motor deficits, no sensory deficits noted and deep tendon reflexes 2+ bilaterally Sensorium / Orientation: awake and alert Motor Exam: strength 5/5 throughout Skin no rashes or lesions noted and no wounds MDM MDM MDM Narrative Medical decision making narrative: Patient was given fluids and basic labs and EKG were obtained. She does have some occasional ectopy, she maintained her heart rate in the 50s without any symptoms of lightheadedness or near syncope. She did not feel any of the ventricular ectopy she was having. She did not have any other lapses in consciousness or dysrhythmias. Her blood work was normal except for mild renal insufficiency and prerenal azotemia and a D-dimer that was significantly elevated so CT angiography was obtained. It did not show pulmonary embolus. Family arrived after my initial evaluation, and they state that the history was a little different than the patient provided; she usually is not active, she walked fairly quickly through the [place] and went up the bleachers directly after that, and immediately upon getting to the top of the bleachers started feeling lightheaded and then passed out. They state that she does not drink enough fluids. My suspicion is that this is the cause of her syncopal episode, in conjunction with her borderline bradycardia because of her metoprolol since she is unable to mount a tachycardic reflex in response to mild dehydration. She was given fluids and felt much better after walking around and was discharged in stable improved condition after we gave her clonidine 0.1 mg for her elevated blood pressure at 194/98, observed her and waited for it to come down to the 140s. Also prior to discharge she requested that we check a urinalysis because she had dysuria a week ago. It is negative for infection. Lab Data Attestation: I reviewed the patient's lab results. Labs: Laboratory Results - last 24 hr 07/22/21 07/22/21 07/22/21 10:55 10:55 11:15 WBC 6.6 RBC 4.26 Hgb 12.4 Hct 39.4 MCV 92.5 MCH 29.1 MCHC 31.5 L RDW Std Deviation 44.6 H RDW Coeff of Juan 13.2 Plt Count 311 MPV 10.7 Immature Gran % (Auto) 0.300 Neut % (Auto) 68.2 Lymph % (Auto) 19.5 [place] % (Auto) 8.8 Eos % (Auto) 1.5 Baso % (Auto) 1.7 H Absolute Neuts (auto) 4.5 Absolute Lymphs (auto) 1.28 Nucleated RBC % 0 D-Dimer Quant (PE/DVT) 2.24 H* Sodium 140 Potassium 4.1 Chloride 106 Carbon Dioxide 28.0 Anion Gap 6 BUN 29 H Creatinine 1.42 H Estim Creat Clear Calc 24.16 Est GFR (MDRD) Af Amer 46 L Est GFR (MDRD) Non-Af 38 L BUN/Creatinine Ratio 20.4 H Glucose 111 H Calcium 9.2 Troponin I High Sens 9 Urine Color Urine Clarity Urine pH Ur Specific [place] Urine Protein Urine Glucose (UA) Urine Ketones Urine Occult Blood Urine Nitrite Urine Bilirubin Urine Urobilinogen Ur Leukocyte Esterase Urine RBC Urine WBC Ur Squamous Epith Cells Urine Bacteria Urine Mucus 07/22/21 14:49 WBC RBC Hgb Hct MCV MCH MCHC RDW Std Deviation RDW Coeff of Juan Plt Count MPV Immature Gran % (Auto) Neut % (Auto) Lymph % (Auto) [place] % (Auto) Eos % (Auto) Baso % (Auto) Absolute Neuts (auto) Absolute Lymphs (auto) Nucleated RBC % D-Dimer Quant (PE/DVT) Sodium Potassium Chloride Carbon Dioxide Anion Gap BUN Creatinine Estim Creat Clear Calc Est GFR (MDRD) Af Amer Est GFR (MDRD) Non-Af BUN/Creatinine Ratio Glucose Calcium Troponin I High Sens Urine Color Yellow Urine Clarity Clear Urine pH 7.0 Ur Specific [place] 1.010 Urine Protein Negative Urine Glucose (UA) Normal Urine Ketones Negative Urine Occult Blood Negative Urine Nitrite Negative Urine Bilirubin Negative Urine Urobilinogen Normal Ur Leukocyte Esterase 25 H Urine RBC 0 SEEN Urine WBC 0-5 SEEN Ur Squamous Epith Cells 0 SEEN Urine Bacteria 2+ Urine Mucus 0 SEEN Radiography Diagnostic Testing: Radiology Impression Chest CTA 07/22/21 11:45 IMPRESSION: Normal CTA chest examination, without a demonstrated pulmonary embolism or arterial dissection. Electronically Signed: Jefry Dyson MD at 13:18 EDT Tel , Service support , Rhythm Strip Rhythm Strip: Sinus Rhythm Rate: 54 Ectopy: PVC(s) (occasional. asymptomatic.) EKG Initial EKG: Attestation: I personally reviewed and interpreted this EKG as follows: Interpretation: No Acute Injury Pattern and Sinus Bradycardia (otherwise normal. rate 52.) Discharge Plan Triage Chief Complaint: Syncope ED Provider: Shahzad Phillips Dx/Rx/DC Orders Clinical Impression: Syncope, Episode of hypertension, Dehydration, mild Instructions: ED Dehydration (Adult) Prescriptions: Continued ergocalciferol (vitamin D2) [Vitamin D2] 50,000 UNIT capsule 50,000 unit PO Q7D RF: 0 lisinopril 30 MG tablet 30 mg PO DAILY RF: 0 metoprolol tartrate 50 MG tablet 50 mg PO BID RF: 0 krill oil 500 MG capsule 500 mg PO DAILY RF: 0 sertraline 100 mg tablet 100 mg PO QHS RF: 0 aspirin 81 mg Tablet,Chewable 81 mg PO DAILY RF: 0 albuterol sulfate 90 mcg/actuation HFA aerosol inhaler 2 puff INHALATION Q4H PRN (Reason: Shortness Of Breath Or Wheezing) RF: 0 Primary Care Provider: Lawson Ramos Referrals: Lawson Ramos [Primary Care Provider] - 3-5 Days Disposition Disposition: Home, Self Care
[2021-07-22] MEDS: 0.9% Normal Saline 1,000 ML 100 ML IV (11:12)
[2021-07-22 11:21] LABS: Absolute Lymphocyte Count 1.28 X10^3/uL (0.83-4.51); Absolute Neutrophil Count 4.5 X10^3/uL (2.0-7.7); Basophil# 0.11 X10^3/uL; Basophil% 1.7 % (0-1); Eosinophils% 1.5 % (0-5); Hematocrit 39.4 % (37-47); Hemoglobin 12.4 g/dL (12.0-15.0); Lymphocyte # 1.28 X10^3/ul (0.83-4.51); Lymphocyte % 19.5 % (19-41); Mean Corp Hgb Conc 31.5 g/dL (32-36); Mean Corpuscular Hgb 29.1 pg (27.0-32.0); Mean Corpuscular Volume 92.5 fL (81-99); Mean Platelet Vol. 10.7 fl (6.2-12.0); Monocyte# 0.58 X10^3/uL; Monocyte% 8.8 % (0-10); NRBC Flagged by Analyzer 0 % (0-5); Neutrophil # 4.47 X10^3/uL (2.7-7.7); Neutrophil % 68.2 % (47-70); Platelet Count 311 K/mm3 (150-450); RBC Distribution Width CV 13.2 % (11.6-14.6); RBC Distribution Width SD 44.6 fl (35.1-43.9); Red Blood Count 4.26 M/mm3 (4.2-5.4); White Blood Count 6.6 K/mm3 (4.4-11.0)
[2021-07-22 11:32] LABS: Anion Gap 6 (5-15); BUN 29 mg/dL (7-18); BUN/Creat Ratio 20.4 RATIO (10-20); Calcium,Total 9.2 mg/dL (8.5-10.1); Chloride 106 mmol/L (98-107); Creatinine, Serum 1.42 mg/dL (0.55-1.02); EST Glomerular Filtration Rate 38 mL/min (>60); Est Glom Filt Rate - Afr Amer 46 mL/min (>60); Estimated Creatinine Clearance 24.16 ml/min; Glucose 111 mg/dL (74-106); Potassium 4.1 mmol/L (3.5-5.1); Sodium Level 140 mmol/L (136-145); Troponin-I HS 9 pg/mL (3.0-54.0)
[2021-07-22 11:38] LABS: D-Dimer Quantitative (DVT/PE) 2.24 FEU/ug/m (0.27-0.49)
--- NOTE | 2021-07-22 11:45 | CT_ITS ---
STUDY: CTA CHEST REASON FOR EXAM: Female, 81 years old. syncope, elevated d-dimer RADIATION DOSAGE (If Supplied By Facility): CTDIvol = ( 5.64 ) mGy, DLP = ( 120.48 ) mGycm TECHNIQUE: The examination was performed with the intravenous administration of IV 100mL Isovue-370. Post-processing of the angiographic images was performed, with multiplanar reformation and 3D reconstruction. Individualized dose optimization techniques were used for this CT. COMPARISON: 06/30/2021 FINDINGS: Normal enhancement of the main pulmonary artery and right and left pulmonary arteries. Normal enhancement of the bilateral peripheral pulmonary arteries. There is no demonstrated pulmonary embolism. Normal thoracic aorta and visualized great vessels. There is no demonstrated aortic dissection. Normal heart and pericardium. Normal mediastinum. Normal hilar regions. Normal visualized trachea and bronchi. The lungs are well expanded. Mild emphysematous changes. No change in the groundglass densities and bronchiolectasis in the periphery of the right upper lobe and right lower lobe consistent with scarring. Some left lower lobe atelectasis. Also changed no change in the inferior right middle lobe scarring and bronchiectasis. Also no change in the inferior lingular scarring and bronchiectasis. Normal pleura. Normal chest wall structures. Normal osseous structures. Normal visualized upper abdomen. CT/CTA Chest W/WO Contrast IMPRESSION: Normal CTA chest examination, without a demonstrated pulmonary embolism or arterial dissection. Electronically Signed: Jefry Dyson MD at 13:18 EDT Tel , Service support ,
[2021-07-22 11:57] VITALS: BP 147/58; PULSE 51; RESP 13; O2SAT 97
[2021-07-22 13:07] VITALS: BP 189/90
[2021-07-22 13:54] VITALS: BP 194/98; PULSE 63; RESP 17; O2SAT 96
[2021-07-22] MEDS: cloNIDine HCl 0.1 MG Tablet PO (14:13)
[2021-07-22 14:53] VITALS: BP 180/90; PULSE 60; RESP 12; O2SAT 98
[2021-07-22 14:58] LABS: Mucous, Urine 0 SEEN /hpf (<or=2+); Red Blood Cells-Urine 0 SEEN /hpf (0-5); Squamous Epithelial Cells - UA 0 SEEN /hpf (5-10)
[2021-07-22 15:01] LABS: Color, Urine Yellow (Yellow); Glucose, Dipstick Normal (Normal); Ketone-Dipstick Negative (Negative); Leukocyte Esterase-Dipstick 25 /ul (Negative); Nitrite-Dipstick Negative (Negative); Occult Blood-Urine Negative /ul (Negative); Protein-Dipstick Negative (Negative); Urine Bilirubin Dipstick Negative (Negative); Urine Clarity Clear (Clear); Urine Urobilinogen Normal (Normal)
[2021-07-22 15:16] LABS: Bacteria 2+ /hpf (None Seen); White Blood Cells 0-5 SEEN /hpf (0-5)
[2021-07-22 15:42] VITALS: BP 146/70; PULSE 60; RESP 12; O2SAT 92
== END 2021-07-22 16:15 | disposition home or self-care (01) ==
PROVIDERS: Emergency Provider Emergency Medicine; PCP Student in an Organized Health Care Education/Training Program
DX: R55 Syncope and collapse (principal); I10 Essential (primary) hypertension; E86.0 Dehydration; F02.80 Dementia in other diseases classified elsewhere, unspecified severity, without behavioral disturbance, psychotic disturbance, mood disturbance, and anxiety; G30.1 Alzheimer's disease with late onset; Z79.82 Long term (current) use of aspirin; Z85.3 Personal history of malignant neoplasm of breast
CPT/HCPCS: 71275; 80048; 81001; 84484; 85025; 85379; 93005; 96360; 96361; 99285; Q9967

== ENCOUNTER 2021-10-04 11:24 | Outpatient (CLI) | payer MEDICARE, OTHER, SELFPAY ==
[2021-10-04] MEDS: 0.9% Saline Lock 10 ML Syringe IV (11:45)
[2021-10-04 11:49] VITALS: BP 121/58; PULSE 68; RESP 18; TEMP 36.8; O2SAT 97; BMI 21.4
[2021-10-04 12:18] VITALS: BP 138/58; PULSE 71; RESP 16; TEMP 36.8; O2SAT 94
[2021-10-04 13:18] VITALS: BP 146/71; PULSE 71; RESP 16; TEMP 36.5; O2SAT 97
== END 2021-10-04 13:25 | disposition home or self-care (01) ==
LOC: MS3OUT 11:24 → MS3 11:25
PROVIDERS: PCP Student in an Organized Health Care Education/Training Program; Referring Provider Nurse Practitioner Adult Health; Visit Provider Nurse Practitioner Adult Health
DX: Z23 Encounter for immunization (principal); U07.1 COVID-19
CPT/HCPCS: J7050; M0245; Q0245; A4216

== ENCOUNTER 2022-05-25 11:54 | Inpatient (IN) | payer MEDICARE, OTHER, SELFPAY ==
[2022-05-25] VITALS (17 sets, daily range): BP systolic 117–205; BP diastolic 58–99; PULSE 60–79; RESP 15–23; TEMP 36.5–36.7; O2SAT 92–99; BMI 23.9; BMI 22.6
--- NOTE | 2022-05-25 11:55 | EKG12_ITS ---
Test Reason : STROKE Blood Pressure : / mmHG Vent. Rate : 063 BPM Atrial Rate : 063 BPM P-R Int : 180 ms QRS Dur : 072 ms QT Int : 470 ms P-R-T Axes : 031 -21 010 degrees QTc Int : 480 ms Normal sinus rhythm Normal ECG Confirmed by GENNA BARBER MD ([id number]), legal editor JIGNA SINGH ([id number]) on 05/28/2022 11:26:54 AM Referred By: PARIS Confirmed By:GENNA BARBER MD
--- NOTE | 2022-05-25 11:56 | CT_ITS ---
STUDY: CT HEAD STROKE PROTOCOL W/O CONTRAST INJECTION REASON FOR EXAM: Female, 81 years old. Neuro deficit, acute, stroke suspected RADIATION DOSAGE (If Supplied By Facility): CTDIvol = ( 47.06 ) mGy, DLP = ( 907.97 ) mGycm TECHNIQUE: Transaxial CT imaging of the brain was performed without administration of intravenous contrast material. Individualized dose optimization techniques were used for this CT. COMPARISON: Comparison is made with prior study 07/02/2021. FINDINGS: Normal soft tissue structures. Normal calvarium. There is moderate cerebral atrophy with widening of the extra-axial spaces and ventricular dilatation. There are areas of decreased attenuation within the white matter tracts of the supratentorial brain, consistent with microvascular disease changes. Normal basal ganglia and thalami. Normal brainstem. Normal cerebellum. There is no intracranial hemorrhage. There are no findings of an acute ischemic infarction. Atherosclerotic calcification of the cavernous portions of the internal carotid arteries bilaterally. Normal visualized paranasal sinuses. ASPECT score: 10 CT/STROKE Brain/Head without Cont IMPRESSION: Chronic involutional changes of the brain. N.B. : The above Results were Read Back by Artie Hamilton MD to RADHA TOLEDO and understanding confirmed on 05/25/2022 12:10:43 (ET). Electronically Signed: Artie Hamilton MD at 12:11 EDT ,
--- NOTE | 2022-05-25 11:59 | EDS_ITS ---
HPI History of Present Illness Chief Complaint: Neuro S/Sx Informant: patient and EMS Narrative Narrative: Patient was seen acutely in the min by EMS. This patient evidently has had relatively sudden onset of generalized weakness, slurred speech and vomiting. P atient states she has a little discomfort in the lower abdomen. We will initiate CT scan as per CT protocol. We will get more details of history and exam when she has back in the room. We learned that the patient was outside doing some gardening. She had been seen about 15 minutes prior to EMS being called. Family then went out and checked on her and she was laying on the ground. They do not know if she fell or hit her head or just lay down. She had some nausea and vomiting so EMS was called. She evidently had some slurred speech but it sounds like she was more mumbling in between vomiting. I have no report of any lateralizing deficit at any time. Patient denies ever having chest pain or back pain. When she first came in she stated she had a little bit of upset stomach but denies actual pain. She states she has had high blood pressure and she has had breast cancer on the right. She is on baby aspirin but it looks like she is not on any other anticoagulants. Her and her 's med list are on the same card and he is on Plavix which might of been a confusion regarding her being on stronger blood thinners. At this time, her sole complaint is nausea and vomiting. She just feels overall weak. [facility] Medical History Actinic skin damage Borderline abnormal TFTs Cerebral microvascular disease Dementia Hx of breast cancer Hypertension Inflamed seborrheic keratosis Late onset Alzheimer's dementia without behavioral disturbance Lipoma Osteoporosis Rosacea Solar lentigo Tongue lesion Viral warts Vitamin D deficiency Home Medications ascorbic acid (vitamin C) 500 mg tablet (Vitamin C) 500 mg PO DAILY 05/25/22 [History Last Taken 1 Week Ago ~05/18/22] aspirin 81 mg chewable tablet 81 mg PO DAILY 05/25/22 [History Last Taken 05/25/22] cholecalciferol (vitamin D3) 125 mcg (5,000 unit) tablet (Vitamin D3) 125 mcg PO DAILY 05/25/22 [History Last Taken 05/25/22] krill 1,000 mg-omega-3 170 mg-dha 50 mg-epa 80 [id number] capsule (krill oil) 1 cap PO BID 05/25/22 [History Last Taken 1 Week Ago ~05/18/22] lisinopril 30 mg tablet 30 mg PO DAILY 05/25/22 [History Last Taken 05/25/22] metoprolol tartrate 50 mg tablet 50 mg PO BID 05/25/22 [History Last Taken 05/25/22] sertraline 50 mg tablet 50 mg PO QHS 05/25/22 [History Last Taken 05/24/22] turmeric 400 mg capsule 400 mg PO DAILY 05/25/22 [History Last Taken 1 Week Ago ~05/18/22] Allergy/AdvReac Type Severity Reaction Status Date / Time No Known Allergies Allergy Verified 07/22/21 10:56 Surgical History H/O mastectomy Social History (Updated 05/25/22 @ 15:[address] Althea Colin DO) household members: spouse housing: house Smoking Status: Never smoker alcohol intake: never substance use type: does not use ROS ROS ED Constitutional Constitutional ED: Denies fever(s) Eyes Eyes: Denies change in vision Cardiovascular Cardiovascular: Denies chest pain or palpitations Respiratory/Chest Respiratory/Chest: Denies cough or dyspnea Gastrointestinal Gastrointestinal: Reports nausea and vomiting; Denies abdominal pain, constipation, diarrhea or melena Genitourinary Genitourinary ED: Denies dysuria Musculoskeletal Musculoskeletal: Denies back pain, myalgias or neck pain Integumentary Denies rash Neurologic Neurologic: Reports other Details: See history of present illness ; Denies headache(s) Hematologic/Lymphatic Hematologic/Lymphatic: Denies easy bleeding or easy bruising Allergic/Immunologic Allergic/Immunologic ED: Denies urticaria EXAM Physical Exam Const Vital Signs: 05/25/22 11:55 05/25/22 12:21 05/25/22 12:21 Temperature 98.0 F Temperature Source Temporal Pulse Rate 65 63 Respiratory Rate 16 15 Blood Pressure 139/71 H 117/99 H Blood Pressure Mean 93 105 Pulse Ox 96 94 Oxygen Delivery Method Room Air Room Air Room Air 05/25/22 12:21 05/25/22 12:15 05/25/22 12:45 Temperature 98.1 F Temperature Source Temporal Pulse Rate 62 64 61 Respiratory Rate 17 23 H 17 Blood Pressure 119/99 H 117/99 H 121/64 H Blood Pressure Mean 105 105 83 Pulse Ox 93 94 94 Oxygen Delivery Method Room Air Room Air Room Air 05/25/22 13:15 05/25/22 13:45 05/25/22 14:15 Temperature Temperature Source Pulse Rate 62 60 60 Respiratory Rate 17 16 15 Blood Pressure 137/58 H 138/65 H 157/62 H Blood Pressure Mean 84 89 93 Pulse Ox 95 92 96 Oxygen Delivery Method Room Air Room Air Room Air Positive well nourished and well developed Constitutional Narrative: Patient is holding an emesis bag. She is sometimes slow to answer but I think this is related to intermittent nausea and dry heaves. Even though she does not answer questions immediately, she does give generally correct answers. Her voice is clear. General Appearance ED: well developed; Negative for cyanotic or diaphoretic HEENT Reports moist mucous membranes Eyes EOMs intact bilaterally Eyes Narrative: She can look left right up and down without difficulty General Eye ED: Negative for pale conjunctiva or scleral icterus Neck no JVD Chest Wall inspection of chest normal Resp normal respiratory effort and clear to auscultation bilaterally Cardio regular rate and regular rhythm Rate: Negative for bradycardia or tachycardic GI normal to inspection, nondistended, normoactive bowel sounds, non-tender and non-distended GI Narrative: I feel no mass. There is no tenderness. I hear no bruit. Patient is vomiting some yellow contents. Back/Spine no CVA tenderness Extremity normal to inspection Neuro Neuro Narrative: Patient is awake alert and oriented to person place and current events. She knows who the president is. She was a little bit off on the year and said 2020 but was not sure. She was accurate on the month. Her NIH is 0. There is no lateralizing deficit. There is no slurred speech. There is no expressive or receptive aphasia. She is sometimes little slow to answer and respond but other times after you get her attention she is normal. Psych Psych Narrative: Mildly flat affect Skin no rashes or lesions noted MDM MDM MDM Narrative Medical decision making narrative: I talked with patient and family and . She is much more alert and quick at this time. She looks much better. The states that she was outside watering some fresh grass. She was in the shade. She had gotten up and eaten a normal meal and even had some fluids to drink. He had seen her watering the yard. He then noticed that she was sitting on a planter bench. He then noticed that she was slumped over the plantar bench. As he approached she was waving to get his attention. He states that she was speaking but not a lot at that time. She seemed very weak. She could not get up. He and his son had a really pull her off the bench and lay her down on the ground in the shade again. She remained like this through her stay here. She states that she recalls just feeling weak like she was going to pass out. No chest pain or palpitations. Her blood work showed normal CBC. Coags are normal. Electrolytes do show mild elevation of BUN and creatinine but is hard to put all of the event down to dehydration. She had been eating and drinking was in the shade when this happened. It is not notably hot today. Lactic acid is not moved. Prolactin is mildly elevated. This was drawn as we had very little history at first. But at this time, her history does not sound to be consistent with likely tonic-clonic seizure. Her lactate was normal. But she certainly could have had partial seizure. Telestroke neurologist recommended admission for further work-up. I have hospitalist on page. Urinalysis is still pending but she has no urinary symptoms. Lab Data Attestation: I reviewed the patient's lab results. Labs: Laboratory Results - last 24 hr 05/25/22 05/25/22 05/25/22 11:43 11:43 11:43 WBC 6.3 RBC 4.87 Hgb 14.8 Hct 43.9 MCV 90.1 MCH 30.4 MCHC 33.7 RDW Std Deviation 42.8 RDW Coeff of Juan 13.0 Plt Count 274 MPV 10.7 Immature Gran % (Auto) 0.600 Neut % (Auto) 53.2 Lymph % (Auto) 37.2 [place] % (Auto) 6.1 Eos % (Auto) 1.9 Baso % (Auto) 1.0 Absolute Neuts (auto) 3.3 Absolute Lymphs (auto) 2.33 Nucleated RBC % 0 PT 12.7 INR 1.0 APTT 25.1 Sodium 140 Potassium 4.2 Chloride 107 Carbon Dioxide 23.0 Anion Gap 10 BUN 22 H Creatinine 1.52 H Estim Creat Clear Calc 24.64 Est GFR (MDRD) Af Amer 42 L Est GFR (MDRD) Non-Af 35 L BUN/Creatinine Ratio 14.5 Glucose 129 H Lactic Acid Calcium 9.5 Total Bilirubin 0.80 AST 23 ALT 14 Alkaline Phosphatase 109 Troponin I High Sens 9 Total Protein 7.7 Albumin 3.4 Globulin 4.3 H Albumin/Globulin Ratio 0.8 L Lipase 163 Prolactin 82.7 05/25/22 12:35 WBC RBC Hgb Hct MCV MCH MCHC RDW Std Deviation RDW Coeff of Juan Plt Count MPV Immature Gran % (Auto) Neut % (Auto) Lymph % (Auto) [place] % (Auto) Eos % (Auto) Baso % (Auto) Absolute Neuts (auto) Absolute Lymphs (auto) Nucleated RBC % PT INR APTT Sodium Potassium Chloride Carbon Dioxide Anion Gap BUN Creatinine Estim Creat Clear Calc Est GFR (MDRD) Af Amer Est GFR (MDRD) Non-Af BUN/Creatinine Ratio Glucose Lactic Acid 1.9 Calcium Total Bilirubin AST ALT Alkaline Phosphatase Troponin I High Sens Total Protein Albumin Globulin Albumin/Globulin Ratio Lipase Prolactin Radiography Diagnostic Testing: Clinical Impression(s) from Imaging Studies Brain CT 05/25/22 11:56 IMPRESSION: Chronic involutional changes of the brain. N.B. : The above Results were Read Back by Artie Hamilton MD to RADHA TOLEDO and understanding confirmed on 05/25/2022 12:10:43 (ET). Electronically Signed: Artie Hamilton MD at 12:11 EDT , ADDENDUM: 05/25/22 1218 IMPRESSION: Chronic involutional changes of the brain. N.B. : The above Results were Read Back by Artie Hamilton MD to RADHA TOLEDO and understanding confirmed on 05/25/2022 12:10:43 (ET). Electronically Signed: Artie Hamilton MD at 12:11 EDT , Chest X-Ray 05/25/22 12:40 IMPRESSION: Hyperinflation. Findings suggestive of scarring in the peripheral aspect of the right upper lobe as well as in the left lower lobe. Electronically Signed: Artie Hamilton MD at 13:08 EDT , Head/Neck CTA 05/25/22 13:59 IMPRESSION: Calcific plaque at the origin of the right internal carotid artery causing between 50 and 69% stenosis. Minimal calcific plaque at the origin of the left internal carotid artery. Small left vertebral artery. Electronically Signed: Artie Hamilton MD at 15:05 EDT , EKG Initial EKG: Comments: EKG done as part of medical work-up read by me shows a normal sinus rhythm with overall rate of 63. No ventricular ectopy. There is some diffuse nonspecific ST and T wave change but no sign of infarct or ischemia. MS interval, QRS duration are normal. Mildly longer QTC at 480 ms. Discharge Plan Dx/Rx/DC Orders Clinical Impression: Near syncope, Generalized weakness, Elevated prolactin level Disposition Disposition: Acute Care Hospital [facility]
[2022-05-25 12:19] LABS: Absolute Lymphocyte Count 2.33 X10^3/uL (0.83-4.51); Absolute Neutrophil Count 3.3 X10^3/uL (2.0-7.7); Basophil# 0.06 X10^3/uL; Eosinophil# 0.12 X10^3/uL; Eosinophils% 1.9 % (0-5); Hematocrit 43.9 % (37-47); Hemoglobin 14.8 g/dL (12.0-15.0); Lymphocyte # 2.33 X10^3/ul (0.83-4.51); Lymphocyte % 37.2 % (19-41); Mean Corp Hgb Conc 33.7 g/dL (32-36); Mean Corpuscular Hgb 30.4 pg (27.0-32.0); Mean Corpuscular Volume 90.1 fL (81-99); Mean Platelet Vol. 10.7 fl (6.2-12.0); Monocyte# 0.38 X10^3/uL; Monocyte% 6.1 % (0-10); NRBC Flagged by Analyzer 0 % (0-5); Neutrophil # 3.34 X10^3/uL (2.7-7.7); Neutrophil % 53.2 % (47-70); Platelet Count 274 K/mm3 (150-450); RBC Distribution Width SD 42.8 fl (35.1-43.9); Red Blood Count 4.87 M/mm3 (4.2-5.4); White Blood Count 6.3 K/mm3 (4.4-11.0)
[2022-05-25 12:25] LABS: Prothrombin Time (Protime)PT. 12.7 SECONDS (11.7-14.9)
[2022-05-25 12:26] LABS: Partial Thromboplast Time 25.1 Seconds (24.1-36.2)
[2022-05-25 12:40] LABS: ALB/GLOB Ratio 0.8 RATIO (0.9-2.4); AST(SGOT) 23 U/L (15-37); Alanine Aminotransfer ALT/SGPT 14 U/L (13-56); Albumin, Serum 3.4 g/dL (3.2-5.0); Alkaline Phosphatase 109 U/L (45-117); Anion Gap 10 (5-15); BUN 22 mg/dL (7-18); BUN/Creat Ratio 14.5 RATIO (10-20); Calcium,Total 9.5 mg/dL (8.5-10.1); Chloride 107 mmol/L (98-107); Creatinine, Serum 1.52 mg/dL (0.55-1.02); EST Glomerular Filtration Rate 35 mL/min (>60); Est Glom Filt Rate - Afr Amer 42 mL/min (>60); Estimated Creatinine Clearance 24.64 ml/min; Globulin 4.3 g/dL (2.2-4.2); Glucose 129 mg/dL (74-106); Lipase 163 U/L (73-393); Potassium 4.2 mmol/L (3.5-5.1); Prolactin 82.7 ng/mL; Protein, Total 7.7 g/dL (6.4-8.2); Sodium Level 140 mmol/L (136-145); Troponin-I HS 9 pg/mL (3.0-54.0)
--- NOTE | 2022-05-25 12:40 | RAD_ITS ---
STUDY: X-RAY CHEST REASON FOR EXAM: Female, 81 years old. Neuro deficit, acute, stroke suspected TECHNIQUE: Single AP portable view of the chest. COMPARISON: Comparison is made with prior study 07/02/2021. FINDINGS: EKG electrodes are seen. The patient is status post right mastectomy and right axillary dissection. Hyperinflation. Stable mild increased markings in the peripheral aspect of the right upper lobe suggestive of scarring. Mild scarring at the left lung base. There is no demonstrated pleural abnormality. Normal size heart. Normal mediastinum and татьяна. Normal visualized pulmonary arteries. There is atherosclerotic calcification of the aortic arch with tortuosity. There are diffuse degenerative changes of the visualized thoracic spine. Normal visualized ribs, clavicles, and shoulders. There is no demonstrated abnormality of the visualized soft tissue structures of the upper abdomen. RAD/Chest 1 View IMPRESSION: Hyperinflation. Findings suggestive of scarring in the peripheral aspect of the right upper lobe as well as in the left lower lobe. Electronically Signed: Artie Hamilton MD at 13:08 EDT ,
--- NOTE | 2022-05-25 12:47 | CHAPLAIN ---
Type of Pastoral Visit ___ Initial Visit ___ Follow-up Visit ___ On-call Visit ___ General Patient Visit ___ Spiritual Assessment ___ Family Conference ___ Bereavement _x__ Rapid Response ___ Code Blue ___ Other (describe below) Pastoral Care Referral From ___ Patient _x__ Family ___ Nurse ___ Physician ___ Order Picker/Assembler ___ School Bus Driver/Mechanic _x__ Other (describe below) Sacrament/Intervention _x__ Active listening ___ Anointing ___ Anabaptist ___ Bereavement ___ Communion ___ [place]ienna exploration ___ _x__ Life review _x__ Prayer ___ Reconciliation ___ Sacrament of Sick _x__ Supportive presence ___ Wedding ___ Other (describe below) Pastoral Comments came to ED for stroke alert; while patient was in CT scan two daughters arrived; met with family members along with SW to offer support and dialogue; daughter mentions that her mother is a person of sienna and prayer would be appreciated; prayer and support given; and son also arrive now to ED; sat with the spouse and listened to his review of life; checked on patient to see when family could enter room; gave presence and offers of support through time family was able to go into room; met the patient at this time and offered support and acknowledged prayers already given
[2022-05-25 13:10] LABS: Lactic Acid 1.9 mmol/L (0.4-1.9)
--- NOTE | 2022-05-25 13:59 | CT_ITS ---
STUDY: CTA HEAD AND NECK WITH CONTRAST REASON FOR EXAM: Female, 81 years old. Stroke eval RADIATION DOSAGE (If Supplied By Facility): CTDIvol = ( 19.83 ) mGy, DLP = ( 552.23 ) mGycm TECHNIQUE: CT angiography was performed with a multi-detector CT scanner. Data acquisition was obtained from the skull base through the vertex following intravenous administration of IV 100mL [id number]-[id number]. MIP images were reconstructed from the axial data set. Post-processing of the angiographic images was performed, with multiplanar reformation and 3D reconstruction. Individualized dose optimization techniques were used for this CT. COMPARISON: No relevant priors. FINDINGS: Normal bilateral petrous carotid arteries. There is calcified plaque formation of the right cavernous carotid artery, without a cross-sectional luminal stenosis. There is calcified plaque formation of the left cavernous carotid artery, without a cross-sectional luminal stenosis. Normal right A1 segments of the anterior cerebral artery. Normal left A1 segments of the anterior cerebral artery. Normal intact anterior communicating artery (ACOM). Normal bilateral A2 segments of the anterior cerebral arteries. Normal right M1 and M2 segments of the middle cerebral arteries, with a normal M1 bifurcation. Normal left M1 and M2 segments of the middle cerebral arteries, with a normal M1 bifurcation. Normal right posterior communicating artery (PCOM). Normal left posterior communicating artery (PCOM). Normal bilateral vertebral arteries. Normal basilar artery with a normal basilar bifurcation. The visualized bilateral superior cerebellar (SCA) arteries are normal. Normal bilateral P1, P2 and visualized P3 segments of the posterior cerebral arteries. There is no demonstrated aneurysm of the [place] of [place]. Chronic changes. AORTIC ARCH: There is atherosclerotic calcific plaque formation of the aortic arch and great vessels arising from the aortic arch, without a hemodynamically significant stenosis. There is a normal origin of the brachiocephalic, left common carotid, and left subclavian arteries. RIGHT CAROTID ARTERIES: Normal right common carotid artery (CCA). Normal right common carotid bulb. There is moderate atherosclerotic plaque formation of the origin of the right internal carotid artery with an estimated stenosis of 50-69% stenosis. Normal visualized cervical portion of the right internal carotid artery. Normal origin of the right external carotid artery (ECA). LEFT CAROTID ARTERIES: Normal left common carotid artery (CCA). Normal left common carotid bulb. There is mild atherosclerotic plaque formation of the origin of the left internal carotid artery with less than 50% cross sectional diameter stenosis. Normal visualized cervical portion of the left internal carotid artery. Normal origin of the left external carotid artery (ECA). VERTEBRAL ARTERIES: There is enhancement within the bilateral vertebral arteries with a small left vertebral artery, and a dominant right vertebral artery. CT/CTA Head AND Neck W/ Contrast IMPRESSION: Calcific plaque at the origin of the right internal carotid artery causing between 50 and 69% stenosis. Minimal calcific plaque at the origin of the left internal carotid artery. Small left vertebral artery. Electronically Signed: Artie Hamilton MD at 15:05 EDT ,
--- NOTE | 2022-05-25 15:17 | MRI_ITS ---
STUDY: MRI BRAIN WITHOUT CONTRAST REASON FOR EXAM: Female, 81 years old. Stroke TECHNIQUE: Standardized multiplanar fat and water weighted pulse sequences were obtained. COMPARISON: None. FINDINGS: There is moderate cerebral atrophy with widening of the extra-axial spaces and ventricular dilatation. There are multiple white matter hyperintensities, distributed throughout the deep white matter tracts of the cerebral hemispheres, consistent with moderate chronic white matter ischemic changes. There is no evidence for recent intracranial ischemia or other cause of cytotoxic edema on diffusion weighted imaging (DWI). Normal T2* images of the brain without demonstrated susceptibility artifact. There is no demonstrated hemosiderin stain. Normal bilateral basal ganglia. Normal thalami. There is no extra-axial fluid accumulation. Normal flow voids within the major intracranial circulation suggesting patency by spin echo criteria. Normal sella turcica, pituitary gland, infundibular stalk, optic chiasm and hypothalamus. Normal tectal plate and pineal gland. Normal midbrain, luciana and medulla. Normal cerebellum. Normal basal cisterns. Normal bilateral temporal bones. Normal bilateral internal auditory canals. No demonstrated orbital abnormality, within the constraints of a routine brain study. Normal visualized paranasal sinuses. Normal calvarium and skull base. Normal visualized soft tissue structures. Normal visualized upper cervical spine. MRI/Brain without Contrast IMPRESSION: Senescent changes with no evidence of acute intracranial bleed, mass or ischemia. Electronically Signed: Jonathan Ortiz DO at 17:41 EDT ,
--- NOTE | 2022-05-25 15:17 | ECHOD_ITS ---
Reason For Study: Syncope/Near Syncope Procedure This was a 2D Doppler, Color Flow transthoracic echocardiogram. Exam performed portable in ED. Left Ventricle Normal LV size. Left ventricular systolic function is lower limits of normal. The estimated ejection fraction is 53 %. Stage 1 diastolic dysfunction. No regional wall motion abnormalities noted. Right Ventricle Normal RV size. Normal systolic function. Atria Normal left atrium. Normal right atrium. Mitral Valve Normal mitral valve. Tricuspid Valve Normal tricuspid valve. Mild tricuspid valve insufficiency. Pulmonary artery systolic pressure is 30 mmHg. Aortic Valve Normal aortic valve. Trisinus/trileaflet aortic valve. Pulmonic Valve Normal pulmonic valve. Great Vessels Normal aortic root. The pulmonary artery is normal size. Normal inferior vena cava. Pericardium/Pleural No pericardial effusion. MMode/2D Measurements & Calculations LVIDd: 4.3 cm IVSd: 1.1 cm Ao root diam: 3.4 cm LVIDs: 3.5 cm LVPWd: 1.1 cm RVDd: 2.8 cm FS: 19.9 % LAV(MOD-bp): 31.6 ml LVAd ap4: 23.6 cm2 SV(MOD-sp4): 35.6 ml LAV(MOD-bp) Indexed: 19.4 ml/m2 LVLd ap4: 6.8 cm LAV(MOD-sp2): 27.7 ml EDV(MOD-sp4): 68.1 ml LAV(MOD-sp4): 32.1 ml EDV(sp4-el): 69.7 ml LVAs ap4: 15.2 cm2 LVLs ap4: 6.1 cm ESV(MOD-sp4): 32.5 ml ESV(sp4-el): 32.2 ml EF(MOD-sp4): 52.3 % EF(sp4-el): 53.8 % SV(sp4-el): 37.5 ml LA A4 area: 13.8 cm2 LA dimension(2D): 3.6 cm RA A4 area: 10.7 cm2 Doppler Measurements & Calculations MV E max eric: 43.7 cm/sec Lat Peak E' Eric: 4.8 cm/sec Med Peak E' Eric: 2.7 cm/sec MV A max eric: 89.3 cm/sec E/E' lat: 9.1 E/E' med: 15.9 MV E/A: 0.49 Ao V2 max: 91.8 cm/sec LV V1 max: 65.6 cm/sec PA V2 max: 73.2 cm/sec Ao max P.4 mmHg LV V1 max P.7 mmHg Ao V2 mean: 64.5 cm/sec Ao mean P.8 mmHg Ao V2 VTI: 21.2 cm TR max eric: 260.6 cm/sec TR max P.2 mmHg ECHO/Echo Complete Interpretation Summary Normal LV size. Left ventricular systolic function is lower limits of normal. The estimated ejection fraction is 53 %. Stage 1 diastolic dysfunction. Pulmonary artery systolic pressure is 30 mmHg. Ordering Physician: Althea Colin Referring Physician: Lawson Ramos Performed By: Scarlett Hines, ISAIAS, RVT
--- NOTE | 2022-05-25 15:17 | HP.PCM.HOS_ITS ---
HPI - General General Date of Admission: 05/25/22 Date of Service: 05/25/22 Chief Complaint: Acute mental status change HPI Narrative GONZALO ALVARADO, is a 81 F who presented to the emergency department at [facility] on 05/25/2022 with an acute change in mental status. The patient reported that she was in her usual state of health and felt well this morning when she woke up. She and her were outside working in the garden where she was outside in the shade watering some fresh grass and he then noted she was sitting on a planter bench slumped over. As he approached she was waiting to get his attention and he reported that she was not seeing a whole lot at that time but was speaking intermittently. He reported she seemed very weak but had no focal deficits. She could not get off the ground but was moving all of her stress extremities. He and the son had to pull her off the bench and lay her on the ground in the shade and she recalled that she felt weak and like she was going to pass out. She denied any other prodrome or associated symptoms including chest pain shortness of breath, or palpitations. When the squad arrived she evidently had some emesis both at her home and in the squad and felt nauseated initially upon presentation however upon my evaluation is back to baseline per family. Upon discussion with the ER physician he reported that she initially was able to follow low commands but seems somewhat dazed and during her emergency department course her mental status improved and it returned to where it was upon my evaluation. She has had no history of previous seizures, syncope or cardiac issues. She does have a history of breast cancer which is in remission. Upon presentation to the emergency department her temperature was 98 degrees, blood pressure 139/71, heart rate was 65, respiratory rate was 16, and pulse ox was 96% on room air. Her CBC is unremarkable. Coags are normal. Chemistry showed normal electrolytes with a mildly elevated BUN and creatinine at 22 and 1.52 respectively however these appear quite close to her baseline. Family does admit that she has history of poor oral intake with regards to liquids and dehydration. Blood glucose level was 129. Her lactic acid was normal at 1.9. Her LFTs are unremarkable. Her initial troponin was 9 and a prolactin was obtained as there was concern for seizure and was noted to be elevated 82.7 as she is a postmenopausal female. Her EKG showed normal sinus rhythm without any ST-T wave changes and normal intervals. Her CT of her brain showed chronic involutional changes but no acute findings. A CTA of her head neck was performed and showed calcific plaque at the origin of the right internal carotid artery resulting in 50 to 69% stenosis and mild calcific plaque of the origin of the left internal carotid artery with a small left vertebral artery her chest x- ray demonstrated some hyperinflation and findings suggestive of scarring in the peripheral aspect of the right upper lobe and the left lower lobe. The patient has no history of tobacco abuse. As noted, by the time of my evaluation she was back to baseline per family, however we do not have an explanation for this event and she will be admitted to observation for work-up. [facility] Medical History (Updated 05/25/22 @ 15:[address] Althea Colin, DO) Actinic skin damage Borderline abnormal TFTs Breast cancer Cerebral microvascular disease COVID-19 Dementia Essential hypertension Hx of breast cancer Hypertension Inflamed seborrheic keratosis Late onset Alzheimer's dementia without behavioral disturbance Lipoma Osteoporosis Over 65 years old Rosacea Solar lentigo Tongue lesion Viral warts Vitamin D deficiency Home Medications ascorbic acid (vitamin C) 500 mg tablet (Vitamin C) 500 mg PO DAILY 05/25/22 [History Last Taken 1 Week Ago ~05/18/22] aspirin 81 mg chewable tablet 81 mg PO DAILY 05/25/22 [History Last Taken 05/25/22] cholecalciferol (vitamin D3) 125 mcg (5,000 unit) tablet (Vitamin D3) 125 mcg PO DAILY 05/25/22 [History Last Taken 05/25/22] krill 1,000 mg-omega-3 170 mg-dha 50 mg-epa 80 nd-xkembm-lycom capsule (krill oil) 1 cap PO BID 05/25/22 [History Last Taken 1 Week Ago ~05/18/22] lisinopril 30 mg tablet 30 mg PO DAILY 05/25/22 [History Last Taken 05/25/22] metoprolol tartrate 50 mg tablet 50 mg PO BID 05/25/22 [History Last Taken 05/25/22] sertraline 50 mg tablet 50 mg PO QHS 05/25/22 [History Last Taken 05/24/22] turmeric 400 mg capsule 400 mg PO DAILY 05/25/22 [History Last Taken 1 Week Ago ~05/18/22] Allergy/AdvReac Type Severity Reaction Status Date / Time No Known Allergies Allergy Verified 07/22/21 10:56 no significant family history Surgical History H/O mastectomy Social History (Updated 05/25/22 @ 15:[address] Althea Colin DO) household members: spouse housing: house Smoking Status: Never smoker alcohol intake: never substance use type: does not use ROS Constitutional Constitutional: Denies anorexia, change in weight, chills, fatigue, fever(s), malaise, night sweats, weakness or other Eyes Eyes: Denies blurry vision, change in eye color, change in vision, discharge from eye(s), double vision, erythema, eye pain, loss of vision or other ENT HEENT: Denies abnormal hearing, dysphagia, ear pain, epistaxis, headache(s), hearing loss, nasal congestion, nasal discharge, post nasal drip, sinus pressure, sore throat or other Cardiovascular Cardiovascular: Denies chest pain, claudication, dyspnea on exertion, edema, lightheadedness, orthopnea, palpitations, paroxysmal nocturnal dyspnea, rapid heart rate, syncope or other Respiratory/Chest Respiratory/Chest: Denies cough, dyspnea, excessive phlegm production, hemoptysis, productive cough, shortness of breath at rest, shortness of breath with exertion, wheezing or other Gastrointestinal Gastrointestinal: Reports nausea and vomiting; Denies abdominal pain, coffee ground emesis, constipation, diarrhea, dyspepsia, hematemesis, hematochezia, loose stools, melena or other Genitourinary Genitourinary: Denies burning urination, difficulty urinating, dysuria, hematuria, nocturia, urinary frequency, urinary hesitancy, urinary incontinence, urinary urgency or other Musculoskeletal Musculoskeletal: Denies arthralgias, back pain, joint pain, joint stiffness, joint swelling, myalgias, neck pain or other Neurologic Neurologic: Reports abnormal speech and other Details: Acute change in mental status/generalized weakness ; Denies abnormal gait, confusion, disequilibrium, dizziness, focal weakness, headache(s), numbness, paresthesias, seizure-like activity, seizures, syncope, tingling or tremor(s) Psychiatric Psychiatric: Denies anxiety, depression, homicidal ideation, suicidal ideation or other Endocrine Endocrinology: Denies change in body appearance, cold intolerance, excessive sweating, heat intolerance, polydipsia, polyuria or other Hematologic/Lymphatic Hematologic/Lymphatic: Denies anemia, easy bleeding, easy bruising, lymphadenopathy or other Allergic/Immunologic Allergic/Immunologic: Denies rhinitis, hives, eczemia, asthma or other Vital Signs Vital Signs Vital Signs: 05/25/22 11:55 05/25/22 12:21 05/25/22 12:21 Temperature 98.0 F Temperature Source Temporal Pulse Rate 65 63 Respiratory Rate 16 15 Blood Pressure 139/71 H 117/99 H Blood Pressure Mean 93 105 Pulse Ox 96 94 Oxygen Delivery Method Room Air Room Air Room Air 05/25/22 12:21 05/25/22 12:15 05/25/22 12:45 Temperature 98.1 F Temperature Source Temporal Pulse Rate 62 64 61 Respiratory Rate 17 23 H 17 Blood Pressure 119/99 H 117/99 H 121/64 H Blood Pressure Mean 105 105 83 Pulse Ox 93 94 94 Oxygen Delivery Method Room Air Room Air Room Air 05/25/22 13:15 05/25/22 13:45 05/25/22 14:15 Temperature Temperature Source Pulse Rate 62 60 60 Respiratory Rate 17 16 15 Blood Pressure 137/58 H 138/65 H 157/62 H Blood Pressure Mean 84 89 93 Pulse Ox 95 92 96 Oxygen Delivery Method Room Air Room Air Room Air Weight Weight: 63.2 kg Body Mass Index (BMI) 23.9 Physical Exam Const alert, oriented x3, no apparent distress, average body habitus, healthy appearing and well nourished Constitutional Narrative: Elderly white female sitting up in the bed in the emergency department, family at bedside, patient appears comfortable nontoxic, patient and family report that she appears back to baseline General Appearance: cooperative HEENT normocephalic, head/scalp atraumatic, hearing grossly normal bilaterally and moist oral mucous membranes HEENT Narrative: Dentition is fair with a few missing teeth posteriorly, Mallampati 2, no thrush Eyes PERRL, EOMs intact bilaterally and conjunctivae normal Eyes Narrative: No scleral icterus Neck no lymphadenopathy, supple and no JVD Neck Narrative: Trachea midline, no thyroid enlargement, right carotid bruit Resp normal respiratory effort, no retractions, no use of accessory muscles and clear to auscultation bilaterally Auscultation: Negative for crackles, rales, rhonchi or wheezes Cardio regular rate, regular rhythm, S1 normal heart sound, S2 normal heart sound, no murmurs, no rub, no gallops, no clicks and no JVD GI normal to inspection, nondistended, normoactive bowel sounds, soft to palpation, non-tender and non-distended; Negative for hepatosplenomegaly Extremity normal to inspection and no clubbing, cyanosis or edema Extremity Narrative: Good muscle tone Neuro oriented x3, CN's II-XII intact bilaterally, moves all extremities and no focal motor deficits Neuro Narrative: Reflexes are 2+, no sensory deficits, very minimal generalized weakness proximal greater than distal Sensorium / Orientation: awake, alert, oriented to person, oriented to place and oriented to time Speech: speech normal Psych affect normal Psych Narrative: Very pleasant and jovial with joking on exam Results Lab / Micro Data Attestation: I reviewed the patient's lab results. Result Diagrams: 05/25/22 11:43 05/25/22 11:43 Labs: Laboratory Results - last 24 hr 05/25/22 11:43: WBC 6.3, RBC 4.87, Hgb 14.8, Hct 43.9, MCV 90.1, MCH 30.4, MCHC 33.7, RDW Std Deviation 42.8, RDW Coeff of Juan 13.0, Plt Count 274, MPV 10.7, Immature Gran % (Auto) 0.600, Neut % (Auto) 53.2, Lymph % (Auto) 37.2, [place]ady % (Auto) 6.1, Eos % (Auto) 1.9, Baso % (Auto) 1.0, Absolute Neuts (auto) 3.3, Abso lute Lymphs (auto) 2.33, Nucleated RBC % 0 05/25/22 11:43: PT 12.7, INR 1.0, APTT 25.1 05/25/22 11:43: Sodium 140, Potassium 4.2, Chloride 107, Carbon Dioxide 23.0, Anion Gap 10, BUN 22 H, Creatinine 1.52 H, Estim Creat Clear Calc 24.64, Est GFR (MDRD) Af Amer 42 L, Est GFR (MDRD) Non-Af 35 L, BUN/Creatinine Ratio 14.5, Glucose 129 H, Calcium 9.5, Total Bilirubin 0.80, AST 23, ALT 14, Alkaline Phosphatase 109, Troponin I High Sens 9, Total Protein 7.7, Albumin 3.4, Globulin 4.3 H, Albumin/Globulin Ratio 0.8 L, Lipase 163, Prolactin 82.7 05/25/22 12:35: Lactic Acid 1.[address] 05/25/22 11:56 IMPRESSION: Chronic involutional changes of the brain. N.B. : The above Results were Read Back by Artie Hamilton MD to RADHA TOLEDO and understanding confirmed on 05/25/2022 12:10:43 (ET). Electronically Signed: Artie Hamilton MD at 12:11 EDT , ADDENDUM: 05/25/22 1218 IMPRESSION: Chronic involutional changes of the brain. N.B. : The above Results were Read Back by Artie Hamilton MD to RADHA TOLEDO and understanding confirmed on 05/25/2022 12:10:43 (ET). Electronically Signed: Artie Hamilton MD at 12:11 EDT , Chest X-Ray 05/25/22 12:40 IMPRESSION: Hyperinflation. Findings suggestive of scarring in the peripheral aspect of the right upper lobe as well as in the left lower lobe. Electronically Signed: Artie Hamilton MD at 13:08 EDT , Head/Neck CTA 05/25/22 13:59 IMPRESSION: Calcific plaque at the origin of the right internal carotid artery causing between 50 and 69% stenosis. Minimal calcific plaque at the origin of the left internal carotid artery. Small left vertebral artery. Electronically Signed: Artie Hamilton MD at 15:05 EDT , Assessment & Plan Assessment/Plan (1) Near syncope: (2) Generalized weakness: (3) Nausea and vomiting: (4) Stenosis of right carotid artery: PLAN: Plan Acute mental status change with questionable near syncope -Etiology is not clear at this time however I do feel we need to rule out stroke, cardiac event, seizure -CT of the brain and CTA do not show any etiology that would be responsible -Check MRI of the brain -Check EEG -Prolactin was elevated at 81 on admission and given that she is a postmenopausal female I would have suspected not to be elevated -Lactic acid was normal -Check echocardiogram -Cycle cardiac enzymes -Check orthostatic vitals -Monitor on telemetry -Check TSH -UA ordered and pending--> if consistent with infection we will check culture -After MRI and EEG obtained we will likely consult SOC neurology for input prior to discharge -Overall episode was brief and patient is now back to baseline Nausea and vomiting -Above event was associated with nausea and vomiting -Patient currently not nauseated -Antiemetics ordered Generalized weakness -Again this appears to be temporary -We will consult PT to ambulate patient and make sure she is safe to go home without any further care or assistive devices -At baseline patient is independent Right carotid artery stenosis -CTA of the head and neck shows right carotid artery stenosis 50 to 69% at the origin -No significant left-sided disease noted -Check lipid panel -Continue aspirin -Start atorvastatin 40 mg -We will refer to vascular as an outpatient for follow-up -Current surgical needs -Not responsible for above event and suspect this is an incidental finding ALLYN versus CKD stage IIIb -Baseline serum creatinine unknown -Orthostatic vitals pending -We will gently hydrate with 1 L of LR x1 bag and reevaluate kidney function in a.m. -Family did report on admission that she tends to run dehydrated Hypertension -Continue metoprolol -Continue lisinopril History of breast cancer -No acute issues Alzheimer's type dementia -Suspect mild cognitive impairment as patient is oriented x3 in the emergency department on presentation -Monitor for sundowning -Lives with Vitamin D deficiency -Restart vitamin D on discharge Depression -Continue sertraline 50 mg at at bedtime DVT prophylaxis -Twice daily Heparin CODE STATUS -Full code Charges/Coding Visit Charges Inpatient E&M: 19531 Init Hosp L3
[2022-05-25] MEDS: Lactated Ringers 1,000 ML 70 ML IV (17:54)
[2022-05-25 19:03] LABS: Troponin-I HS 6 pg/mL (3.0-54.0)
[2022-05-25] MEDS: 0.9% Saline Lock 10 ML Syringe IV ×2 (20:27→20:30)
[2022-05-25] MEDS: hydrALAZINE 20 MG/ML Vial 10 MG IV (20:27)
[2022-05-25] MEDS: Sertraline 50 MG Tablet PO (22:20)
[2022-05-25] MEDS: Metoprolol Tartrate 50 MG Tablet PO (22:20)
[2022-05-25] MEDS: Atorvastatin Calcium 40 MG Tablet PO (22:21)
[2022-05-26] VITALS (16 sets, daily range): BP systolic 150–173; BP diastolic 63–78; PULSE 69–77; RESP 16; TEMP 36.5–37.1; O2SAT 93–100
[2022-05-26 00:43] LABS: Mucous, Urine 0 SEEN /hpf (<or=2+); Red Blood Cells-Urine 0 SEEN /hpf (0-5)
[2022-05-26 00:49] LABS: Color, Urine Yellow (Yellow); Glucose, Dipstick Normal (Normal); Ketone-Dipstick Negative (Negative); Leukocyte Esterase-Dipstick 25 /ul (Negative); Nitrite-Dipstick Positive (Negative); Occult Blood-Urine 10 /ul (Negative); Protein-Dipstick 30 mg/dl (Negative); Urine Bilirubin Dipstick Negative (Negative); Urine Clarity Sl. Cloudy (Clear); Urine Urobilinogen 4 mg/dl (Normal); Urine pH 6.5 (5.0 - 8.0)
[2022-05-26 00:56] LABS: Bacteria 3+ /hpf (None Seen); Squamous Epithelial Cells - UA 0-5 SEEN /hpf (5-10); White Blood Cells 5-10 SEEN /hpf (0-5)
--- NOTE | 2022-05-26 04:22 | PCM.HOSP.N ---
Hospitalist Note Patient with hematuria, given presentation history, UA obtained, notable with IV rocephin start, UCx pending.
[2022-05-26] MEDS: 0.9% Normal Saline 1,000 ML 75 ML IV (04:27)
[2022-05-26] MEDS: hydrALAZINE 20 MG/ML Vial 10 MG IV ×2 (04:27→22:42)
[2022-05-26] MEDS: Ceftriaxone 1 GM/50 ML BAG IV ×2 (04:44→21:00)
[2022-05-26 06:24] LABS: Absolute Lymphocyte Count 1.79 X10^3/uL (0.83-4.51); Absolute Neutrophil Count 10.2 X10^3/uL (2.0-7.7); Basophil# 0.06 X10^3/uL; Basophil% 0.5 % (0-1); Eosinophil# 0.02 X10^3/uL; Eosinophils% 0.2 % (0-5); Lymphocyte # 1.79 X10^3/ul (0.83-4.51); Lymphocyte % 13.7 % (19-41); Mean Corp Hgb Conc 32.6 g/dL (32-36); Mean Corpuscular Volume 92.1 fL (81-99); Mean Platelet Vol. 10.9 fl (6.2-12.0); Monocyte# 0.97 X10^3/uL; Monocyte% 7.4 % (0-10); NRBC Flagged by Analyzer 0 % (0-5); Neutrophil # 10.21 X10^3/uL (2.7-7.7); Neutrophil % 77.7 % (47-70); Platelet Count 232 K/mm3 (150-450); RBC Distribution Width CV 13.2 % (11.6-14.6); RBC Distribution Width SD 44.4 fl (35.1-43.9); Red Blood Count 4.67 M/mm3 (4.2-5.4); White Blood Count 13.1 K/mm3 (4.4-11.0)
[2022-05-26 07:14] LABS: ALB/GLOB Ratio 0.8 RATIO (0.9-2.4); AST(SGOT) 21 U/L (15-37); Alanine Aminotransfer ALT/SGPT 13 U/L (13-56); Alkaline Phosphatase 92 U/L (45-117); Anion Gap 10 (5-15); BUN 23 mg/dL (7-18); BUN/Creat Ratio 21.1 RATIO (10-20); Chloride 103 mmol/L (98-107); Cholesterol 214 mg/dL (200); Creatinine, Serum 1.09 mg/dL (0.55-1.02); EST Glomerular Filtration Rate 51 mL/min (>60); Est Glom Filt Rate - Afr Amer 62 mL/min (>60); Estimated Creatinine Clearance 34.36 ml/min; Globulin 3.8 g/dL (2.2-4.2); Glucose 108 mg/dL (74-106); High Density Lipoprotein 60 mg/dL; Magnesium 1.9 mg/dL (1.6-2.6); Potassium 3.5 mmol/L (3.5-5.1); Protein, Total 6.8 g/dL (6.4-8.2); Sodium Level 139 mmol/L (136-145); Thyroid Stim Hormone (TSH) 1.94 uIU/mL (0.358-3.74); Triglycerides 77 mg/dL; Very Low Density Lipoprotein 15 mg/dL (5-40)
[2022-05-26] MEDS: Aspirin 81 MG TAB.CHEW PO (08:28)
[2022-05-26] MEDS: Lisinopril 20 MG Tablet 30 MG PO (08:29)
[2022-05-26] MEDS: Heparin Injection (Vial) 5,000 UNIT/ML VIAL 5000 UNIT SC (08:29)
[2022-05-26] MEDS: Ascorbic Acid 500 MG Tablet PO (08:30)
[2022-05-26] MEDS: Metoprolol Tartrate 50 MG Tablet PO ×2 (08:30→20:29)
[2022-05-26 09:25] LABS: Phosphorus 2.8 mg/dL (2.5-4.9)
--- NOTE | 2022-05-26 12:35 | CASEMGMT ---
BUZZ SUMNER [employer] CM to room to meet with patient for initial transition planning/care coordination assessment. BUZZ SUMNER introduced self and role at [facility].? Pt voices understanding and consents to assessment at this time.? Pt resting in bed in no distress at this time.? , daughter/Mallorie, and son/Deondre, @ bedside. Pt is A/O at this time and answers all questions appropriately.?? Care providers, pharmacy, and demographics verified/updated at this time. PCP: Dr Ramos Specialists: denies Preferred [facility]acy[facility] Insurance: [facility], MMO Prescription Benefit:? Yes Living Will/HPOA:? Pt has both LW and HPOA, who is her , Jose Daniel. LNOK: , Jose Daniel. Dtr, Mallorie. Son, Deondre Living Arrangements: Lives w/her in split-level home w/2 steps to enter. 6 steps b/w levels. Pt states she does okay w/the stairs, she just takes them careful and slow. Independent w/ADL's. Uses no DME @ baseline to ambulate. Transportation: Pt drives. does not drive. They deny any transportation concerns. DME: ?Has the following DME:? commode riser, grab bars, BP cuff. Pt has a walker available, but does not use. ?States no need for further DME at this time.? HHC/SNF: No hx of SNF, has had HHC about 18 yrs ago. Pt denies need for HHC. Pt and family report pt having some generalized weakness and they are interested in script for OP therapy. Dr Colin made aware, script received, and given to pt/family. They are aware they can take to a location of choose. Pt wishes to return home and pt and family have no concern with pt going home at time of discharge.? They voice no further concerns/needs at this time.? Advised them to ask for CM if any further questions/concerns/needs arise.? They voice understanding. PLAN: ?Home w/script for OP therapy, family support, and discharge plans in place. PT/OT evals pending. Joe CAMPBELL RN, CM
[2022-05-26 13:27] LABS: Hemoglobin 14.2 g/dL (12.0-15.0)
--- NOTE | 2022-05-26 14:22 | PN.HOSP_ITS ---
Subjective Subjective Patient was seen early this morning and was feeling well no issues overnight. Patient was started on antibiotics as her UA was suggestive of possible infection. Again patient denies dysuria however she gets confused with urinary tract infections per family. Serum creatinine has improved. Patient then developed bright red blood per rectum and has had several bowel movements with blood hemoglobin was stable this morning and repeat after that event shows continued stable hemoglobin. Objective Data Objective Data Vital Signs: Vital Signs Temp Pulse Resp BP Pulse Ox O2 Del Method 97.9 F 75 16 156/63 H 97 Room Air 05/26/22 08:14 05/26/22 08:30 05/26/22 08:14 05/26/22 08:30 05/26/22 08:14 05/26/22 08:19 Oxygen Delivery Method Room Air Weight: 59.874 kg Body Mass Index (BMI) 22.6 Intake & Output: Intake and Output for Last 24 Hours 05/24/22 05/25/22 05/26/22 23:59 23:59 23:59 Intake Total 120 / 120 1508.5 / 1508.5 Balance 120 / 120 1508.5 / 1508.5 Lab / Micro Data Result Diagrams: 05/26/22 13:10 05/26/22 05:45 Labs: Laboratory Results - last 24 hr 05/25/22 17:50: Troponin I High Sens 6 05/26/22 00:35: Urine Color Yellow, Urine Clarity Sl. Cloudy, Urine pH 6.5, Ur Specific [place] 1.010, Urine Protein 30 H, Urine Glucose (UA) Normal, Urine Ketones Negative, Urine Occult Blood 10 H, Urine Nitrite Positive H, Urine Bilirubin Negative, Urine Urobilinogen 4 H, Ur Leukocyte Esterase 25 H, Urine RBC 0 SEEN, Urine WBC 5-10 SEEN, Ur Squamous Epith Cells 0-5 SEEN, Urine Bacteria 3+, Urine Mucus 0 SEEN 05/26/22 05:45: Sodium 139, Potassium 3.5, Chloride 103, Carbon Dioxide 26.0, Anion Gap 10, BUN 23 H, Creatinine 1.09 H, Estim Creat Clear Calc 34.36, Est GFR (MDRD) Af Amer 62, Est GFR (MDRD) Non-Af 51 L, BUN/Creatinine Ratio 21.1 H, Glucose 108 H, Calcium 9.0, Magnesium 1.9, Total Bilirubin 0.60, AST 21, ALT 13, Alkaline Phosphatase 92, Total Protein 6.8, Albumin 3.0 L, Globulin 3.8, Albumin/Globulin Ratio 0.8 L, Triglycerides 77, Cholesterol 214 H, LDL Cholesterol 139 H, VLDL Cholesterol 15, HDL Cholesterol 60, TSH 1.94 05/26/22 05:45: WBC 13.1 H, RBC 4.67, Hgb 14.0, Hct 43.0, MCV 92.1, MCH 30.0, MCHC 32.6, RDW Std Deviation 44.4 H, RDW Coeff of Juan 13.2, Plt Count 232, MPV 10.9, Immature Gran % (Auto) 0.500, Neut % (Auto) 77.7 H, Lymph % (Auto) 13.7 L, [place] % (Auto) 7.4, Eos % (Auto) 0.2, Baso % (Auto) 0.5, Absolute Neuts (auto) 10.2 H, Absolute Lymphs (auto) 1.79, Nucleated RBC % 0 05/26/22 05:45: Phosphorus 2.8 05/26/22 13:10: Hgb 14.2, Hct 43.0 Radiography Diagnostic Testing: Radiology Impression Head/Neck CTA 05/25/22 13:59 IMPRESSION: Calcific plaque at the origin of the right internal carotid artery causing between 50 and 69% stenosis. Minimal calcific plaque at the origin of the left internal carotid artery. Small left vertebral artery. Electronically Signed: Artie Hamilton MD at 15:05 EDT , Brain MRI 05/25/22 15:17 IMPRESSION: Senescent changes with no evidence of acute intracranial bleed, mass or ischemia. Electronically Signed: Jonathan Ortiz DO at 17:41 EDT , Echocardiogram 05/25/22 15:17 Interpretation Summary Normal LV size. Left ventricular systolic function is lower limits of normal. The estimated ejection fraction is 53 %. Stage 1 diastolic dysfunction. Pulmonary artery systolic pressure is 30 mmHg. Ordering Physician: Althea Colin Referring Physician: Lawson Ramos Performed By: Scarlett Hines, ISAIAS, RVT Physical Exam Const alert, oriented x3, no apparent distress, average body habitus, healthy liseth earing and well nourished Constitutional Narrative: Very pleasant, elderly white female of normal weight lying in the bed, respiratory therapy is at the bedside ending up EEG General Appearance: cooperative HEENT normocephalic, head/scalp atraumatic, hearing grossly normal bilaterally and moist oral mucous membranes Resp normal respiratory effort, no retractions, no use of accessory muscles and clear to auscultation bilaterally Auscultation: Negative for crackles, rales, rhonchi or wheezes Cardio regular rate, regular rhythm, S1 normal heart sound, S2 normal heart sound, no murmurs, no rub, no gallops, no clicks and no JVD GI normal to inspection, nondistended, normoactive bowel sounds, soft to palpation, non-tender and non-distended; Negative for hepatosplenomegaly Extremity normal to inspection and no clubbing, cyanosis or edema Extremity Narrative: Good muscle tone Neuro oriented x3, CN's II-XII intact bilaterally, moves all extremities and no focal motor deficits Neuro Narrative: Reflexes are 2+, no sensory deficits, very minimal generalized weakness proximal greater than distal Sensorium / Orientation: awake, alert, oriented to person, oriented to place and oriented to time Speech: speech normal Psych affect normal Psych Narrative: Very pleasant and jovial with joking on exam Assessment & Plan Assessment/Plan (1) Near syncope: (2) Generalized weakness: (3) Nausea and vomiting: (4) Stenosis of right carotid artery: PLAN: Plan Acute mental status change with questionable near syncope -Etiology is not clear at this time however I do feel we need to rule out stroke, cardiac event, seizure -CT of the brain and CTA do not show any etiology that would be responsible -MRI of the brain negative except for chronic changes -EEG is pending -Prolactin was elevated at 81 on admission and given that she is a postmenopausal female I would have suspected not to be elevated -Lactic acid was normal -Echocardiogram showed an EF of 53% with stage I diastolic dysfunction and pulmonary artery pressure of 30 mmHg -Cardiac enzymes were normal x3 at 9-9-6 -Orthostatic vitals negative -Monitor on telemetry -TSH was within normal range -UA was consistent with infection -Patient remains at baseline Bright red blood per rectum -Hold aspirin -Hold subcu DVT prophylaxis -Every 6 hours H&H -CT with p.o. and IV contrast per discussion with GI -GI consulted and case was discussed with Dr. Nevarez Suspected UTI -UA is suggestive of infection -Previous infections have been fairly sensitive E. coli -Ceftriaxone started -Culture pending Generalized weakness -Again this appears to be temporary -We will consult PT to ambulate patient and make sure she is safe to go home without any further care or assistive devices -At baseline patient is independent Right carotid artery stenosis -CTA of the head and neck shows right carotid artery stenosis 50 to 69% at the origin -No significant left-sided disease noted -Check lipid panel -Continue aspirin -Continue atorvastatin -We will refer to vascular as an outpatient for follow-up -Current surgical needs -Not responsible for above event and suspect this is an incidental finding ALLYN versus CKD stage IIIb -Resolving with current serum creatinine--> down to 1.09 -Patient was given 1 L of IV fluids -Family did report on admission that she tends to run dehydrated Hypertension -Continue metoprolol -Continue lisinopril Hyperlipidemia -Total cholesterol was 214/LDL 139/HDL 60/triglyceride 77 -Patient was started on atorvastatin 40 mg -Liver enzymes are normal -Would recommend repeat CMP in 6 weeks to reassess liver function with initiation of statin History of breast cancer -No acute issues Alzheimer's type dementia -Suspect mild cognitive impairment as patient is oriented x3 in the emergency department on presentation -Monitor for -Lives with Vitamin D deficiency -Restart vitamin D on discharge Chronic low back pain -K pad ordered Depression -Continue sertraline 50 mg at at bedtime DVT prophylaxis -SCDs -Hold chemoprophylaxis secondary to bright red blood per rectum CODE STATUS -Full code
--- NOTE | 2022-05-26 14:26 | CT_ITS ---
STUDY: CT ABDOMEN AND PELVIS WITH CONTRAST REASON FOR EXAM: Female, 81 years old. RECTAL BLEEDING-- IV and ORal contrast RADIATION DOSAGE (If Supplied By Facility): CTDIvol = ( 13.60 ) mGy, DLP = ( 724.51 ) mGycm TECHNIQUE: Transaxial images were obtained from the dome of the diaphragm to the symphysis pubis without oral contrast. Oral and amp; IV Gastrografin and amp; 100mL Isovue-300 was administered. Sagittal and coronal images were reconstructed. Individualized dose optimization techniques were used for this CT. COMPARISON: None. FINDINGS: The basilar segment of the bilateral upper lobes demonstrate atelectasis. Within the left lower lower lobe is scattered areas of peripheral patchy airspace disease concerning for early infiltrates. The visualized portions of the heart are within normal limits. Normal liver. Normal gallbladder and extrahepatic biliary system. Normal spleen. Normal pancreas. Normal bilateral adrenal glands. There is moderate cortical atrophy of the right kidney, consistent with chronic medical renal disease. There is moderate cortical atrophy of the left kidney, consistent with chronic medical renal disease. Normal visualized stomach. Normal small intestine. There is demonstrated wall thickening of the descending colon concerning for underlying colitis without focal fluid collection or abscess. Mild surrounding inflammatory stranding is present. The appendix is visualized and appears normal. Normal abdominal aorta. Normal inferior vena cava. Normal retroperitoneum. Normal urinary bladder. Normal abdominal wall. Diffuse demineralization and degenerative changes with dextroscoliotic curve of the lumbar spine. CT/Abdomen/Pelvis WITH Contrast IMPRESSION: 1. Findings consistent with long segment of descending colon colitis without focal fluid collection or abscess. Clinically correlate. Differential includes infectious/inflammatory component with ischemia not excluded. 2. Mild left lower lobe areas of peripheral airspace disease concerning for early infiltrates/pneumonia in the appropriate clinical setting. Moderate bilateral renal atrophic changes. Electronically Signed: Jonathan Ortiz DO at 17:32 EDT ,
--- NOTE | 2022-05-26 14:28 | TELEMED_ITS ---
[facility] has confirmed receipt of a request for visit. This document confirms receipt of the order initiating the consult. To find the results of the consultation, please view the patient's reports for the scanned Telemed Consult.
[2022-05-26 18:24] LABS: Hemoglobin 13.1 g/dL (12.0-15.0)
--- NOTE | 2022-05-26 19:55 | CON.PCM_ITS ---
Assessment & Plan Assessment/Plan (1) Ischemic colitis: PLAN: Lower GI bleed secondary to ischemic colitis. This is the most likely diagnosis. She does not have any risk factors and would be very uncommon for her to develop ulcerative colitis. Also ulcerative colitis would not have spared the rectum. 95% of time and involves the rectum and is continuous like ischemic colitis. Her presentation is more consistent with ischemic colitis likely from the cramping that she been experiencing prior to her coming to the hospital. Also on the tissue diagnosis could be an infectious enterocolitis. I would recommend to check stool studies including fecal lactoferrin, enteric pathogens and C. difficile colitis. If her fecal lactoferrin is normal then it is unlikely she has any infectious colitis. Her hemoglobin seems to be rel atively stable at this time. I do not think she needs endoscopy/colonoscopy at this time as she appears relatively stable. HPI Consult Data Date of Consult: 05/26/22 HPI Narrative Reason for Consultation: lower GI bleeding HPI Narrative: GONZALO ALVARADO, is a 81 F who presented to the ED via EMS with altered mental status. This patient evidently has had relatively sudden onset of generalized weakness, slurred speech and vomiting.? Patient states she has a little discomfort in the lower abdomen.? She did say that she has been having some cramping along with nausea and looser stools. She had multiple episodes of nausea vomiting prior to coming into the hospital and developed worsening slurred speech between the nausea vomiting. There was suspicion for an acute CVA however a CT scan of the brain and MRI has not shown any signs of acute cerebral event. She does take antiplatelet medicines because a history of TIA in the past. I was asked to see the patient today due to some lower GI bleeding. Her hemoglobin was 14.4 and currently today is 13.1. Her bleeding has subsided as per the patient. I requested that a CT scan of the abdomen pelvis was ordered. It demonstrated a normal stomach, small bowel and appendix. I did note wall thickening from the level of the descending colon down to the rectosigmoid junction with fat stranding. She did say that she has been having some cramping still in the hospital. COUNT INCLUDES THE [facility] Medical History (Updated 05/26/22 @ 20:[address] Weston Friend, DO) Actinic skin damage Borderline abnormal TFTs Breast cancer Cerebral microvascular disease COVID-19 Dementia Dementia Essential hypertension Hx of breast cancer Hypertension Inflamed seborrheic keratosis Late onset Alzheimer's dementia without behavioral disturbance Lipoma Osteoporosis Over 65 years old Rosacea Solar lentigo Tongue lesion Viral warts Vitamin D deficiency Home Medications ascorbic acid (vitamin C) 500 mg tablet (Vitamin C) 500 mg PO DAILY 05/25/22 [History Last Taken 1 Week Ago ~05/18/22] aspirin 81 mg chewable tablet 81 mg PO DAILY 05/25/22 [History Last Taken 05/11 04/01] cholecalciferol (vitamin D3) 125 mcg (5,000 unit) tablet (Vitamin D3) 125 mcg PO DAILY 05/25/22 [History Last Taken 05/25/22] krill 1,000 mg-omega-3 170 mg-dha 50 mg-epa 80 [id number] capsule (krill oil) 1 cap PO BID 05/25/22 [History Last Taken 1 Week Ago ~05/18/22] lisinopril 30 mg tablet 30 mg PO DAILY 05/25/22 [History Last Taken 05/25/22] metoprolol tartrate 50 mg tablet 50 mg PO BID 05/25/22 [History Last Taken 05/25/22] sertraline 50 mg tablet 50 mg PO QHS 05/25/22 [History Last Taken 05/24/22] turmeric 400 mg capsule 400 mg PO DAILY 05/25/22 [History Last Taken 1 Week Ago ~05/18/22] Allergy/AdvReac Type Severity Reaction Status Date / Time No Known Allergies Allergy Verified 07/22/21 10:56 Family History no significant family his Surgical History H/O mastectomy Social History (Updated 05/25/22 @ 15:[address] Althea Colin DO) household members: spouse housing: house Smoking Status: Never smoker alcohol intake: never substance use type: does not use ROS Constitutional Constitutional: Denies anorexia, change in weight, chills, fatigue, fever(s), malaise, night sweats, weakness or other Eyes Eyes: Denies blurry vision, change in eye color, change in vision, discharge from eye(s), double vision, erythema, eye pain, loss of vision or other ENT HEENT: Denies abnormal hearing, dysphagia, ear pain, epistaxis, headache(s), hearing loss, nasal congestion, nasal discharge, post nasal drip, sinus pressure, sore throat or other Cardiovascular Cardiovascular: Denies chest pain, claudication, dyspnea on exertion, edema, lightheadedness, orthopnea, palpitations, paroxysmal nocturnal dyspnea, rapid heart rate, syncope or other Respiratory/Chest Respiratory/Chest: Denies cough, dyspnea, excessive phlegm production, h emoptysis, productive cough, shortness of breath at rest, shortness of breath with exertion, wheezing or other Gastrointestinal Gastrointestinal: Reports nausea and vomiting; Denies abdominal pain, coffee ground emesis, constipation, diarrhea, dyspepsia, hematemesis, hematochezia, loose stools, melena or other Genitourinary Genitourinary: Denies burning urination, difficulty urinating, dysuria, deonte turia, nocturia, urinary frequency, urinary hesitancy, urinary incontinence, urinary urgency or other Musculoskeletal Musculoskeletal: Denies arthralgias, back pain, joint pain, joint stiffness, joint swelling, myalgias, neck pain or other Neurologic Neurologic: Reports abnormal speech and other Details: Acute change in mental status/generalized weakness ; Denies abnormal gait, confusion, disequilibrium, dizziness, focal weakness, headache(s), numbness, paresthesias, seizure-like activity, seizures, syncope, tingling or tremor(s) Psychiatric Psychiatric: Denies anxiety, depression, homicidal ideation, suicidal ideation or other Endocrine Endocrinology: Denies change in body appearance, cold intolerance, excessive sweating, heat intolerance, polydipsia, polyuria or other Hematologic/Lymphatic Hematologic/Lymphatic: Denies anemia, easy bleeding, easy bruising, lymphadenopathy or other Allergic/Immunologic Allergic/Immunologic: Denies rhinitis, hives, eczemia, asthma or other Physical Exam Const alert, oriented x3, no apparent distress, average body habitus, healthy appearing and well nourished Constitutional Narrative: Very pleasant, elderly white female of normal weight lying in the bed, respiratory therapy is at the bedside ending up EEG General Appearance: cooperative HEENT normocephalic, head/scalp atraumatic, hearing grossly normal bilaterally and moist oral mucous membranes Resp normal respiratory effort, no retractions, no use of accessory muscles and clear to auscultation bilaterally Auscultation: Negative for crackles, rales, rhonchi or wheezes Cardio regular rate, regular rhythm, S1 normal heart sound, S2 normal heart sound, no murmurs, no rub, no gallops, no clicks and no JVD GI normal to inspection, nondistended, normoactive bowel sounds, soft to palpation, non-tender and non-distended; Negative for hepatosplenomegaly Extremity normal to inspection and no clubbing, cyanosis or edema Extremity Narrative: Good muscle tone Neuro oriented x3, CN's II-XII intact bilaterally, moves all extremities and no focal motor deficits Neuro Narrative: Reflexes are 2+, no sensory deficits, very minimal generalized weakness proximal greater than distal Sensorium / Orientation: awake, alert, oriented to person, oriented to place and oriented to time Speech: speech normal Psych affect normal Psych Narrative: Very pleasant and jovial with joking on exam Lab / Micro Data Result Diagrams: 05/26/22 16:18 05/26/22 05:45 Labs: Laboratory Results - last 24 hr 05/26/22 00:35: Urine Color Yellow, Urine Clarity Sl. Cloudy, Urine pH 6.5, Ur Specific [place] 1.010, Urine Protein 30 H, Urine Glucose (UA) Normal, Urine Ketones Negative, Urine Occult Blood 10 H, Urine Nitrite Positive H, Urine Bilirubin Negative, Urine Urobilinogen 4 H, Ur Leukocyte Esterase 25 H, Urine RBC 0 SEEN, Urine WBC 5-10 SEEN, Ur Squamous Epith Cells 0-5 SEEN, Urine Bacteria 3+, Urine Mucus 0 SEEN 05/26/22 05:45: Sodium 139, Potassium 3.5, Chloride 103, Carbon Dioxide 26.0, Anion Gap 10, BUN 23 H, Creatinine 1.09 H, Estim Creat Clear Calc 34.36, Est GFR (MDRD) Af Amer 62, Est GFR (MDRD) Non-Af 51 L, BUN/Creatinine Ratio 21.1 H, Glucose 108 H, Calcium 9.0, Magnesium 1.9, Total Bilirubin 0.60, AST 21, ALT 13, Alkaline Phosphatase 92, Total Protein 6.8, Albumin 3.0 L, Globulin 3.8, Albumin/Globulin Ratio 0.8 L, Triglycerides 77, Cholesterol 214 H, LDL Cholesterol 139 H, VLDL Cholesterol 15, HDL Cholesterol 60, TSH 1.94 05/26/22 05:45: WBC 13.1 H, RBC 4.67, Hgb 14.0, Hct 43.0, MCV 92.1, MCH 30.0, MCHC 32.6, RDW Std Deviation 44.4 H, RDW Coeff of Juan 13.2, Plt Count 232, MPV 10.9, Immature Gran % (Auto) 0.500, Neut % (Auto) 77.7 H, Lymph % (Auto) 13.7 L, [place] % (Auto) 7.4, Eos % (Auto) 0.2, Baso % (Auto) 0.5, Absolute Neuts (auto) 10.2 H, Absolute Lymphs (auto) 1.79, Nucleated RBC % 0 05/26/22 05:45: Phosphorus 2.8 05/26/22 13:10: Hgb 14.2, Hct 43.0 05/26/22 16:18: Hgb 13.1, Hct 40.0 Radiology Impression Abdomen/Pelvis CT 05/26/22 14:26 IMPRESSION: 1. Findings consistent with long segment of descending colon colitis without focal fluid collection or abscess. Clinically correlate. Differential includes infectious/inflammatory component with ischemia not excluded. 2. Mild left lower lobe areas of peripheral airspace disease concerning for early infiltrates/pneumonia in the appropriate clinical setting. Moderate bilateral renal atrophic changes. Electronically Signed: Jonathan Ortiz DO at 17:32 EDT , Charges/Coding Visit Charges Inpatient E&M: 04449 Init Hosp L2
[2022-05-26] MEDS: Atorvastatin Calcium 40 MG Tablet PO (20:28)
[2022-05-26] MEDS: Sertraline 50 MG Tablet PO (20:29)
[2022-05-26] MEDS: MELATONIN 3 MG TABLET PO (20:30)
[2022-05-26] MEDS: 0.9% Saline Lock 10 ML Syringe IV ×2 (20:56→22:42)
[2022-05-27] VITALS (11 sets, daily range): BP systolic 138–172; BP diastolic 77–87; PULSE 67–88; RESP 12–18; TEMP 36.8–37.1; O2SAT 93–97
[2022-05-27 00:19] LABS: Hematocrit 38.4 % (37-47); Hemoglobin 12.9 g/dL (12.0-15.0)
[2022-05-27] MEDS: 0.9% Saline Lock 10 ML Syringe IV ×4 (03:08→21:03)
[2022-05-27] MEDS: hydrALAZINE 20 MG/ML Vial 10 MG IV (03:09)
[2022-05-27 06:25] LABS: Absolute Lymphocyte Count 1.61 X10^3/uL (0.83-4.51); Absolute Neutrophil Count 8.1 X10^3/uL (2.0-7.7); Basophil# 0.06 X10^3/uL; Basophil% 0.6 % (0-1); Eosinophil# 0.08 X10^3/uL; Eosinophils% 0.8 % (0-5); Hematocrit 38.8 % (37-47); Hemoglobin 13.1 g/dL (12.0-15.0); Lymphocyte # 1.61 X10^3/ul (0.83-4.51); Lymphocyte % 15.3 % (19-41); Mean Corp Hgb Conc 33.8 g/dL (32-36); Mean Platelet Vol. 10.6 fl (6.2-12.0); Monocyte# 0.68 X10^3/uL; Monocyte% 6.5 % (0-10); NRBC Flagged by Analyzer 0 % (0-5); Neutrophil # 8.05 X10^3/uL (2.7-7.7); Neutrophil % 76.4 % (47-70); Platelet Count 222 K/mm3 (150-450); RBC Distribution Width CV 13.1 % (11.6-14.6); RBC Distribution Width SD 42.8 fl (35.1-43.9); Red Blood Count 4.36 M/mm3 (4.2-5.4); White Blood Count 10.5 K/mm3 (4.4-11.0)
[2022-05-27 06:51] LABS: Anion Gap 9 (5-15); BUN 18 mg/dL (7-18); BUN/Creat Ratio 20.1 RATIO (10-20); Calcium,Total 8.5 mg/dL (8.5-10.1); Chloride 105 mmol/L (98-107); Creatinine, Serum 0.89 mg/dL (0.55-1.02); EST Glomerular Filtration Rate 64 mL/min (>60); Est Glom Filt Rate - Afr Amer 78 mL/min (>60); Estimated Creatinine Clearance 42.08 ml/min; Glucose 113 mg/dL (74-106); Potassium 3.1 mmol/L (3.5-5.1); Sodium Level 137 mmol/L (136-145)
[2022-05-27] MEDS: Potassium Chloride Oral Tablet 20 MEQ 40 MEQ PO (09:11)
[2022-05-27] MEDS: Lisinopril 20 MG Tablet 30 MG PO (09:20)
[2022-05-27] MEDS: Ascorbic Acid 500 MG Tablet PO (09:20)
[2022-05-27] MEDS: Metoprolol Tartrate 50 MG Tablet PO ×2 (09:21→21:03)
--- NOTE | 2022-05-27 12:56 | PN.HOSP_ITS ---
Subjective Subjective Patient with a little bit of sundowning overnight and was moved rooms. Denies any current issues. No further bowel movements with blood or otherwise. Patient states she is feeling fine. Still some weakness moving around as noted by family and by nursing. May need home health on discharge. Objective Data Objective Data Vital Signs: Vital Signs Temp Pulse Resp BP Pulse Ox O2 Del Method 98.2 F 88 18 158/87 H 96 Room Air 05/27/22 09:05 05/27/22 09:21 05/27/22 09:05 05/27/22 09:21 05/27/22 09:55 05/27/22 09:55 Oxygen Delivery Method Room Air Weight: 59.874 kg Body Mass Index (BMI) 22.6 Intake & Output: Intake and Output for Last 24 Hours 05/25/22 05/26/22 05/27/22 23:59 23:59 23:59 Intake Total 120 / 120 2864.00 / 3104.00 290 / 290 Balance 120 / 120 2864.00 / 3104.00 290 / 290 Lab / Micro Data Result Diagrams: 05/27/22 06:07 05/27/22 06:07 Labs: Laboratory Results - last 24 hr 05/26/22 13:10: Hgb 14.2, Hct 43.0 05/26/22 16:18: Hgb 13.1, Hct 40.0 05/27/22 00:00: Hgb 12.9, Hct 38.4 05/27/22 06:07: WBC 10.5, RBC 4.36, Hgb 13.1, Hct 38.8, MCV 89.0, MCH 30.0, MCHC 33.8, RDW Std Deviation 42.8, RDW Coeff of Juan 13.1, Plt Count 222, MPV 10.6, Immature Gran % (Auto) 0.400, Neut % (Auto) 76.4 H, Lymph % (Auto) 15.3 L, [place] % (Auto) 6.5, Eos % (Auto) 0.8, Baso % (Auto) 0.6, Absolute Neuts (auto) 8.1 H, Absolute Lymphs (auto) 1.61, Nucleated RBC % 0 05/27/22 06:07: Sodium 137, Potassium 3.1 L, Chloride 105, Carbon Dioxide 23.0, Anion Gap 9, BUN 18, Creatinine 0.89, Estim Creat Clear Calc 42.08, Est GFR (MDRD) Af Amer 78, Est GFR (MDRD) Non-Af 64, BUN/Creatinine Ratio 20.1 H, Gluco se 113 H, Calcium 8.5 Micro: Microbiology 05/26/22 00:35 Urine, Clean Catch Urine Culture - Preliminary GNR 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 Findings consistent with long segment of descending colon colitis without focal fluid collection or abscess. Clinically correlate. Differential includes infectious/inflammatory component with ischemia not excluded. 2. Mild left lower lobe areas of peripheral airspace disease concerning for early infiltrates/pneumonia in the appropriate clinical setting. Moderate bilateral renal atrophic changes. Electronically Signed: Jonathan Ortiz DO at 17:32 EDT , Physical Exam Const alert, oriented x3, no apparent distress and average body habitus Constitutional Narrative: Older white female sitting up in bed, appears comfortable and nontoxic, family at bedside HEENT head/scalp atraumatic, moist oral mucous membranes and oropharynx normal HEENT Narrative: Dentition is fair, Mallampati is 2, no thrush Resp normal respiratory effort, no retractions, no use of accessory muscles and clear to auscultation bilaterally Auscultation: Negative for crackles, rales, rhonchi or wheezes Cardio regular rate, regular rhythm, S1 normal heart sound, S2 normal heart sound, no murmurs, no rub, no gallops, no clicks and no JVD GI normal to inspection, nondistended, normoactive bowel sounds, soft to palpation, non-tender and non-distended Extremity no clubbing, cyanosis or edema Neuro oriented x3, moves all extremities, no focal motor deficits and no sensory deficits noted Neuro Narrative: Generalized weakness Speech: speech normal Psych affect normal Assessment & Plan Assessment/Plan (1) Near syncope: (2) Generalized weakness: (3) Nausea and vomiting: (4) Stenosis of right carotid artery: PLAN: Plan Plan Acute mental status change with questionable near syncope -Etiology is not clear at this time however I do feel we need to rule out stroke, cardiac event, seizure -CT of the brain and CTA do not show any etiology that would be responsible -MRI of the brain negative except for chronic changes -EEG was negative -Prolactin was elevated at 81 on admission and given that she is a postmenopausal female I would have suspected not to be elevated -Lactic acid was normal -Echocardiogram showed an EF of 53% with stage I diastolic dysfunction and pulmonary artery pressure of 30 mmHg -Cardiac enzymes were normal x3 at 9-9-6 -Orthostatic vitals negative -Monitor on telemetry -TSH was within normal range -I suspect this was most probable related to her colitis and pain which resulted in syncope/presyncope episode -Patient remains at baseline Colitis -Hold aspirin -Hold subcu DVT prophylaxis -Globin's have been stable with no further stool or blood -CT with p.o. and IV contrast showed findings consistent with long segment of descending colon colitis without focal fluid collection or abscess -GI suspected ischemic colitis however infectious colitis has not yet been ruled out -Antibiotics converted from ceftriaxone to Zosyn for now for improved GI coverage -Lactoferrin and enteric stool/C. difficile are ordered and pending however patient is not yet produce a bowel movement -GI consulted and do not believe scope is needed at this time Pyuria -UA is suggestive of infection -Urine culture shows a gram-negative lactose survey workers supervisor however colony counts are not high enough to indicate active ongoing infection -Patient is on Zosyn for colitis but do not feel she needs discharged on antibiotics for UTI based on current culture results Generalized weakness -Physical therapy has seen the patient and are recommending ongoing therapy -I suspect patient we will go home with home health care tomorrow as long as she remains stable -At baseline patient is independent Right carotid artery stenosis -CTA of the head and neck shows right carotid artery stenosis 50 to 69% at the origin -No significant left-sided disease noted -Total cholesterol 214/LDL 139/HDL 60/triglycerides 77 -Continue aspirin -Continue atorvastatin -We will refer to vascular as an outpatient for follow-up -No current surgical needs -Not responsible for above event and suspect this is an incidental finding ALLYN versus CKD stage IIIb -Resolved -Family did report on admission that she tends to run dehydrated Hypertension -Continue metoprolol -Continue lisinopril Hyperlipidemia -Total cholesterol was 214/LDL 139/HDL 60/triglyceride 77 -Patient was started on atorvastatin 40 mg -Liver enzymes are normal -Would recommend repeat CMP in 6 weeks to reassess liver function with initiation of statin History of breast cancer -No acute issues Alzheimer's type dementia -Suspect mild cognitive impairment as patient is oriented x3 in the emergency department on presentation -Monitor for sundowning -Lives with Vitamin D deficiency -Restart vitamin D on discharge Chronic low back pain -K pad ordered Depression -Continue sertraline 50 mg at at bedtime DVT prophylaxis -SCDs -Hold chemoprophylaxis secondary to bright red blood per rectum CODE STATUS -Full code Charges/Coding Visit Charges Inpatient E&M: 12263 Subs Hosp L2
[2022-05-27] MEDS: Atorvastatin Calcium 40 MG Tablet PO (21:02)
[2022-05-27] MEDS: Sertraline 50 MG Tablet PO (21:03)
[2022-05-27] MEDS: MELATONIN 3 MG TABLET PO (21:03)
[2022-05-28 03:00] VITALS: PULSE 64
[2022-05-28 03:21] VITALS: BP 133/62; PULSE 65; RESP 12; TEMP 36.8; O2SAT 94
[2022-05-28 05:07] LABS: Absolute Lymphocyte Count 1.47 X10^3/uL (0.83-4.51); Absolute Neutrophil Count 4.7 X10^3/uL (2.0-7.7); Basophil# 0.06 X10^3/uL; Basophil% 0.8 % (0-1); Eosinophils% 4.1 % (0-5); Hematocrit 38.9 % (37-47); Hemoglobin 12.7 g/dL (12.0-15.0); Lymphocyte # 1.47 X10^3/ul (0.83-4.51); Lymphocyte % 20.1 % (19-41); Mean Corp Hgb Conc 32.6 g/dL (32-36); Mean Platelet Vol. 11.1 fl (6.2-12.0); Monocyte# 0.73 X10^3/uL; NRBC Flagged by Analyzer 0 % (0-5); Neutrophil # 4.71 X10^3/uL (2.7-7.7); Neutrophil % 64.5 % (47-70); Platelet Count 240 K/mm3 (150-450); RBC Distribution Width CV 13.3 % (11.6-14.6); RBC Distribution Width SD 45.4 fl (35.1-43.9); Red Blood Count 4.23 M/mm3 (4.2-5.4); White Blood Count 7.3 K/mm3 (4.4-11.0)
[2022-05-28 05:33] LABS: Anion Gap 7 (5-15); BUN 20 mg/dL (7-18); BUN/Creat Ratio 17.9 RATIO (10-20); Calcium,Total 8.6 mg/dL (8.5-10.1); Chloride 110 mmol/L (98-107); Creatinine, Serum 1.12 mg/dL (0.55-1.02); EST Glomerular Filtration Rate 49 mL/min (>60); Est Glom Filt Rate - Afr Amer 60 mL/min (>60); Estimated Creatinine Clearance 33.44 ml/min; Glucose 97 mg/dL (74-106); Potassium 3.7 mmol/L (3.5-5.1); Sodium Level 141 mmol/L (136-145)
[2022-05-28 07:00] VITALS: PULSE 72
--- NOTE | 2022-05-28 07:45 | NURSING ---
Report given to BUZZ Griffith at this time. She will resume care of this patient.
[2022-05-28 08:26] VITALS: O2SAT 95
[2022-05-28 09:32] VITALS: BP 133/73; PULSE 70; RESP 16; TEMP 36.3; O2SAT 94
[2022-05-28 09:34] VITALS: PULSE 70
[2022-05-28] MEDS: Ascorbic Acid 500 MG Tablet PO (09:34)
[2022-05-28] MEDS: Lisinopril 20 MG Tablet 30 MG PO (09:34)
[2022-05-28] MEDS: Metoprolol Tartrate 50 MG Tablet PO (09:34)
--- NOTE | 2022-05-28 10:40 | DCINST_ITS ---
Discharge Instructions Follow Up Care Test Results: Test results from this visit will be discussed in further detail at your follow- up appointment, if applicable. Discharge Plan Admission Admit Date/Time: 05/26/22 15:34 Primary Reason for Your Visit: Confusion, diarrhea Attending Provider: Marian Castillo Primary Care Provider: Lawson Ramos Consulting Providers: Althea Colin Instructions Additional Instructions / Restrictions: Continue to keep yourself hydrated Follow-up with your primary care doctor within 1 week Discharge Orders/Prescriptions Prescriptions: New atorvastatin 40 mg Tablet 40 mg PO QHS 30 Days Qty: 30 0RF amoxicillin-pot clavulanate [Augmentin] 500-125 mg tablet 1 tab PO BID 5 Days Qty: 10 0RF Continued ascorbic acid (vitamin C) [Vitamin C] 500 mg Tablet 500 mg PO DAILY metoprolol tartrate 50 mg tablet 50 mg PO BID Label Comments: TAKE 1 TABLET BY MOUTH TWICE DAILY lisinopril 30 mg tablet 30 mg PO DAILY Label Comments: Take 1 tablet by mouth once daily. aspirin 81 mg Tablet,Chewable 81 mg PO DAILY sertraline 50 mg tablet 50 mg PO QHS Label Comments: TAKE 1 TABLET BY MOUTH DAILY AT BEDTIME cholecalciferol (vitamin D3) [Vitamin D3] 125 mcg (5,000 unit) Tablet 125 mcg PO DAILY Discontinued [id number] [krill oil] [id number] mg Capsule 1 cap PO BID turmeric 400 mg Capsule 400 mg PO DAILY Referrals / Follow Up: Lawson Ramos [Primary Care Provider] - Within 1 Week Disposition Disposition (needs filled in before D/C Order can be placed): Home, Self Care
--- NOTE | 2022-05-28 10:45 | PCM.DC.SUM ---
Providers Date of Admission: 05/26/22 Date of Discharge: 05/28/22 Primary Care Physician: Lawson Ramos Consultations 05/26/22 13:25 Consult: Gastroenterology Routine Consulting Provider: [facility] Reason for Consult: LGIB EMERGENT Consult: No MD Notified: Yes Date Notified: 05/26/22 Time Notified: 13:25 Method of Notification: Text Reason For Visit: ACUTE MS CHANGES Diagnosis Discharge Diagnosis (1) Near syncope: Status: Acute Code(s): R55 - Syncope and collapse (2) Generalized weakness: Status: Acute Code(s): R53.1 - Weakness (3) Nausea and vomiting: Status: Resolved Code(s): R11.2 - Nausea with vomiting, unspecified (4) Stenosis of right carotid artery: Status: Acute Code(s): I65.21 - Occlusion and stenosis of right carotid artery Medications at Discharge Home Medications ascorbic acid (vitamin C) 500 mg tablet (Vitamin C) 500 mg PO DAILY suppliment 05/25/22 aspirin 81 mg chewable tablet 81 mg PO DAILY preventative 05/25/22 cholecalciferol (vitamin D3) 125 mcg (5,000 unit) tablet (Vitamin D3) 125 mcg PO DAILY suppliment 05/25/22 lisinopril 30 mg tablet 30 mg PO DAILY blood pressure 05/25/22 metoprolol tartrate 50 mg tablet 50 mg PO BID heart 05/25/22 sertraline 50 mg tablet 50 mg PO QHS depression 05/25/22 amoxicillin 500 mg-potassium clavulanate 125 mg tablet (Augmentin) 1 tab PO BID 5 days #10 tabs 05/28/22 atorvastatin 40 mg tablet 40 mg PO QHS 30 days #30 tabs 05/28/22 Hospital Course Operations None Procedures None Summary of Care Provided Minutes Spent on Discharge: 35 Hospital Course: 81-year-old female with past medical history of dementia per family, comes in with confusion. Patient was outside working in her garden with her when he noticed that she was sitting on the plantar per and slumped over. She appeared confused and was speaking intermittently. She did look weak. The patient's and the son pulled her off the bench and laid on the ground. Patient stated that she felt like she was going to pass out. She had some emesis when the squad got to her house. She denied any chest pain or palpitations. In the emergency room, it appeared that her mentation was slowly improving. Having BUN was 22, creatinine is 1.52. CT of the brain was unremarkable. CT a of the head and neck was unremarkable except for calcific plaque at origin of the right internal carotid artery associated 69% stenosis and mild calcific plaque at origin of the left internal carotid artery. Chest x-ray was unremarkable. 2D echo showed EF of 53%, stage I diastolic dysfunction. Orthostatic vitals were negative. TSH, cardiac enzymes were negative. Patient had hematuria in the hospital, UA was obtained, she was started on Rocephin. Patient had hematochezia the next day with several episodes of bright red blood per rectum. Her hemoglobin however appears stable. CT of abdomen pelvis with p.o. and IV contrast showed a long segment of descending colon colitis without focal fluid collection or abscess. She was switched to IV Zosyn. GI was consulted; felt this was due to ischemic colitis. Patient had no more rectal bleeding during this stay. We were unable to collect stool for enteric panel to rule out infectious etiologies. Patient had no more bowel movements. She was discharged on 5 more days of Augmentin within a week of antibiotics. She will need to follow-up with the primary care doctor within 1 week. Patient was no more confused at that time she was being discharged. Physical Exam Narrative Physical exam: General: Alert, Oriented x3, Cooperative, No apparent distress HEENT: Atraumatic Oral: Moist Mucosa Neck: Supple Lungs: Clear to auscultation Cardiovascular: HS I+II, regular, no murmurs Abdomen: Bowel Sounds Present, Soft, Non Tender Extremities: No edema Skin: No rashes, No breakdown Neurological: Grossly intact Psych/Mental Status: Appropriate Weight / BMI Weight Weight: 59.874 kg Body Mass Index (BMI) 22.6 ABG / Lab / Microbiology Data Result Diagrams: 05/28/22 03:43 05/28/22 03:43 Laboratory: Laboratory Results - last 24 hr 05/28/22 03:43: WBC 7.3, RBC 4.23, Hgb 12.7, Hct 38.9, MCV 92.0, MCH 30.0, MCHC 32.6, RDW Std Deviation 45.4 H, RDW Coeff of Juan 13.3, Plt Count 240, MPV 11.1, Immature Gran % (Auto) 0.500, Neut % (Auto) 64.5, Lymph % (Auto) 20.1, [place] % (Auto) 10.0, Eos % (Auto) 4.1, Baso % (Auto) 0.8, Absolute Neuts (auto) 4.7, Absolute Lymphs (auto) 1.47, Nucleated RBC % 0 05/28/22 03:43: Sodium 141, Potassium 3.7, Chloride 110 H, Carbon Dioxide 24.0, Anion Gap 7, BUN 20 H, Creatinine 1.12 H, Estim Creat Clear Calc 33.44, Est GFR (MDRD) Af Amer 60, Est GFR (MDRD) Non-Af 49 L, BUN/Creatinine Ratio 17.9, Glucose 97, Calcium 8.6 Microbiology: Microbiology 05/26/22 00:35 Urine, Clean Catch Urine Culture - Final Escherichia coli D/C Instructions Discharge Diet: Low fat / Low cholesterol and 2000 mg Sodium Diet Discharge Activity: Return to Normal Activity Meaningful Use Info Meaningful Use Diagnoses (Choose all that apply): None applicable Discharge Plan Admission Admit Date/Time: 05/26/22 15:34 Primary Reason for Your Visit: Confusion, diarrhea Attending Provider: Marian Castillo Primary Care Provider: Lawson Ramos Consulting Providers: Althea Colin Instructions Additional Instructions / Restrictions: Continue to keep yourself hydrated Follow-up with your primary care doctor within 1 week Discharge Orders/Prescriptions Prescriptions: New atorvastatin 40 mg Tablet 40 mg PO QHS 30 Days Qty: 30 0RF amoxicillin-pot clavulanate [Augmentin] 500-125 mg tablet 1 tab PO BID 5 Days Qty: 10 0RF Continued ascorbic acid (vitamin C) [Vitamin C] 500 mg Tablet 500 mg PO DAILY metoprolol tartrate 50 mg tablet 50 mg PO BID Label Comments: TAKE 1 TABLET BY MOUTH TWICE DAILY lisinopril 30 mg tablet 30 mg PO DAILY Label Comments: Take 1 tablet by mouth once daily. aspirin 81 mg Tablet,Chewable 81 mg PO DAILY sertraline 50 mg tablet 50 mg PO QHS Label Comments: TAKE 1 TABLET BY MOUTH DAILY AT BEDTIME cholecalciferol (vitamin D3) [Vitamin D3] 125 mcg (5,000 unit) Tablet 125 mcg PO DAILY Discontinued [id number] [krill oil] [id number] mg Capsule 1 cap PO BID turmeric 400 mg Capsule 400 mg PO DAILY Referrals / Follow Up: Lawson Ramos [Primary Care Provider] - Within 1 Week Disposition Disposition (needs filled in before D/C Order can be placed): Home, Self Care Charges/Coding Visit Charges Inpatient E&M: 28667 Disch Hosp
== END 2022-05-28 12:06 | disposition home or self-care (01) | DRG 395 ==
LOC: ED 15:14 → PCU 15:26
PROVIDERS: Admitting Provider Internal Medicine; Emergency Provider Emergency Medicine; PCP Student in an Organized Health Care Education/Training Program; Visit Provider Internal Medicine
DX: K55.9 Vascular disorder of intestine, unspecified (principal); G40.409 Other generalized epilepsy and epileptic syndromes, not intractable, without status epilepticus; F02.80 Dementia in other diseases classified elsewhere, unspecified severity, without behavioral disturbance, psychotic disturbance, mood disturbance, and anxiety; G30.9 Alzheimer's disease, unspecified; E78.5 Hyperlipidemia, unspecified; E55.9 Vitamin D deficiency, unspecified; I10 Essential (primary) hypertension; I65.21 Occlusion and stenosis of right carotid artery; Z79.82 Long term (current) use of aspirin; M54.50 Low back pain, unspecified; F32.A Depression, unspecified; G89.29 Other chronic pain; Z86.16 Personal history of COVID-19; Z78.0 Asymptomatic menopausal state; R55 Syncope and collapse; Z85.3 Personal history of malignant neoplasm of breast
CPT/HCPCS: 36415; 70450; 70496; 70498; 70551; 71045; 74177; 80048; 80053; 80061; 81001; 83605; 83690; 83735; 84100; 84146; 84443; 84484; 85014; 85018; 85025; 85610; 85730; 87077; 87086; 87088; 87186; 93005; 93306; 95819; 97162; 97530; 99251; 99285; J7030; J7050; J7120; Q9967; A4216; G0463; J2405

== ENCOUNTER 2024-02-26 10:25 | Observation (INO) | payer MEDICARE, OTHER, SELFPAY ==
[2024-02-26] VITALS (10 sets, daily range): BP systolic 125–203; BP diastolic 69–98; PULSE 52–89; RESP 12–18; TEMP 36.4–36.9; O2SAT 94–99; BMI 31.7; BMI 23.6
--- NOTE | 2024-02-26 10:52 | EX.ED.DYSGE1 ---
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 Went fine and in her normal state healthy breakfast. Has had no recent illness. No nausea, vomiting or diarrhea. No fever or chills. No chest pain. When her daughter was helping her get out of the bathtub she started feeling lightheaded and had a syncopal event. They had her on a chair. She never fell or got injured. This happened for about 10 minutes she actually had a complete loss of conscious but is since resolved and is close to baseline currently. She denies any recent complaints. Family agrees that she has been in good state of health recently. Prior similar symptoms: Yes Recent Illness/Hospitalization: No PFSH PFSH Medical History Actinic skin damage Borderline abnormal TFTs Breast cancer Cerebral microvascular disease COVID-19 Dementia Essential hypertension Hx of breast cancer Hypertension Inflamed seborrheic keratosis Late onset Alzheimer's dementia without behavioral disturbance Lipoma Osteoporosis Over 65 years old Rosacea Solar lentigo Tongue lesion Viral warts Vitamin D deficiency Home Medications ascorbic acid (vitamin C) 500 mg tablet (Vitamin C) 500 mg PO DAILY suppliment 05/25/22 [History Last Taken 1 Week Ago ~05/18/22] aspirin 81 mg chewable tablet 81 mg PO DAILY preventative 05/25/22 [History Last Taken 05/25/22] cholecalciferol (vitamin D3) 125 mcg (5,000 unit) tablet (Vitamin D3) 125 mcg PO DAILY suppliment 05/25/22 [History Last Taken 05/25/22] lisinopril 30 mg tablet 30 mg PO DAILY blood pressure 05/25/22 [History Last Taken 05/25/22] metoprolol tartrate 50 mg tablet 50 mg PO BID heart 05/25/22 [History Last Taken 05/25/22] amoxicillin 500 mg-potassium clavulanate 125 mg tablet (Augmentin) 1 tab PO BID 5 days #10 tabs 05/28/22 [Rx Last Taken Unknown] sertraline 50 mg tablet 100 mg PO QHS depression 12/17/22 [History Last Taken Unknown] Allergy/AdvReac Type Severity Reaction Status Date / Time No Known Allergies Allergy Verified 02/26/24 10:26 Surgical History H/O mastectomy Social History household members: spouse housing: house Smoking Status: Never smoker alcohol intake: never substance use type: does not use ROS ROS ED ROS Narrative Denies recent nausea, vomiting or diarrhea. Denies fever or chills. Denies dysuria. Denies headache or chest pain. Denies any abdominal pain or shortness of breath. Review of Systems ROS Unobtainable: Denies due to encephalopathy Constitutional Constitutional ED: Denies chills or fever(s) Eyes Eyes: Denies blurry vision ENT ENT ED: Denies ear pain Cardiovascular Cardiovascular: Denies chest pain or palpitations Respiratory/Chest Respiratory/Chest: Denies cough or dyspnea Gastrointestinal Gastrointestinal: Denies abdominal pain, constipation, diarrhea, melena, nausea or vomiting Genitourinary Genitourinary ED: Denies dysuria or hematuria Musculoskeletal Musculoskeletal: Denies arthralgias or back pain Integumentary Denies abscess or Abrasions Neurologic Neurologic: Denies headache(s) Psychiatric Psychiatric: Denies anxiety or depression Endocrine Endocrinology: Denies cold intolerance Allergic/Immunologic Allergic/Immunologic ED: Denies mouth swelling, tongue swelling or urticaria EXAM Physical Exam Narrative Exam Narrative: Well-appearing 83-year-old female sitting upright in bed. Multiple family members at bedside. Vital signs are stable afebrile. Pulse ox 94% on room air no hypoxia. H EENT exam unremarkable atraumatic. Pupils round reactive light. Moist extremities. Neck nontender lymphadenopathy. Back nontender. Lungs clear to auscultation bilaterally. Heart regular rhythm rate about 60 no murmur appreciated. Chest wall and ribs nontender. Abdomen soft nontender. Moving all 4 extremities. 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 Dorsi plantarflexion intact. No deformities. Nontender. No edema. Neurologically she is awake alert. Answering questions following commands. No focal motor deficits. Const Vital Signs: 02/26/24 10:26 02/26/24 10:26 02/26/24 11:16 Temperature 97.6 F L Temperature Source Temporal Pulse Rate 57 L Respiratory Rate 18 Respiratory Effort Normal Respiratory Pattern Normal Blood Pressure 138/71 H Blood Pressure Mean 93 Pulse Ox 94 Oxygen Delivery Method Room Air Room Air 02/26/24 11:39 02/26/24 12:00 Temperature Temperature Source Pulse Rate 56 L 52 L Respiratory Rate 14 14 Respiratory Effort Respiratory Pattern Blood Pressure 125/78 H 156/70 H Blood Pressure Mean 93 98 Pulse Ox 95 98 Oxygen Delivery Method Room Air Room Air Positive well nourished and well developed; Negative for obese, cachectic, contractures or unkempt General Appearance ED: well developed and NAD; Negative for unkempt, cachectic, contractures, cyanotic, diaphoretic or pallor Nutritional Appearance: Negative for cachectic or obese HEENT Reports moist mucous membranes; Denies dry mucous membranes Negative for trauma or tenderness Mouth ED: No dry mucous membranes Mouth: No dry mucous membranes Eyes PERRL and EOMs intact bilaterally General Eye ED: Negative for pale conjunctiva or scleral icterus Neck no lymphadenopathy, supple and no JVD General: Negative for tenderness Lymph Lymphatic: Negative for other Chest Wall inspection of chest normal and palpation of chest normal Chest: Negative for other Resp normal respiratory effort and clear to auscultation bilaterally Effort and Inspection: Negative for retractions Auscultation: Negative for rales, rhonchi, wheezes or diminished lung sounds Cardio regular rate, regular rhythm, S1 normal heart sound, S2 normal heart sound and no murmurs Palpation: Negative for palpable S3 or palpable S4 Rate: Negative for bradycardia or tachycardic Rhythm: Negative for abnormal rhythm GI normal to inspection, nondistended, normoactive bowel sounds, non-tender, non-distended and no masses Inspection: Negative for abdominal distention Auscultation: normoactive bowel sounds Palpation: soft; Negative for tender, guarding or rebound tenderness present Back/Spine no CVA tenderness General Back: Negative for CVA tenderness Cervical Spine: Negative for cervical spine tenderness Thoracic Spine / Upper Back: Negative for thoracic spinal tenderness or paraspinal muscle tenderness Lumbar Spine / Lower Back: Negative for lumbar spinal tenderness Extremity normal to inspection General Extremety ED: Negative for edema or tenderness General Extremity: Negative for edema Neuro CN's II-XII intact bilaterally Neuro Narrative: Awake and alert. Answering questions and following commands. Sensorium / Orientation: alert and orientation impaired Motor Exam: strength 5/5 throughout Psych mental status grossly normal Appearance: Negative for unkempt Attitude: No agitated Mood & Affect: Negative for depressed, anxious or tearful Skin no rashes or lesions noted, no wounds and skin turgor normal General Skin Exam: Negative for jaundice or pallor Lesions: No lesion noted Rashes: No rashes noted Trauma: Negative for abrasion Wounds: Negative for wounds noted MDM MDM MDM Narrative Medical decision making narrative: 83-year-old female syncopal episode with no recent complaints. Exam is currently benign. Consider dysrhythmia, dehydration, infection versus anemia versus other etiologies. Pursue a cardiac workup. She has had prior UTIs causing this we will check a UA. Repeat exam patient is doing quite well at 12:45 PM. I spoke at length both her and her family went over all of her test results. He currently does not have a specific cause for her syncopal event. Clinically looks well. She is awake and alert. Her vital signs are stable. She will be admitted overnight for further evaluation for syncope. I have the hospitalist on page. History & Record Review Discussion w/independent historian: Patient and Family Additional record(s) reviewed:: Prior inpatient record, Prior outpatient record, Prior ED visit and Prior labs Lab Data Attestation: I reviewed the patient's lab results. Lab results narrative: CBC normal white count 6. H&H 14.5 and 44. Platelets 252. Electrolytes show gap of 3. BUN and creatinine 18 and 1.2. Glucose 171. Troponin 7. UA negative. No white or red cells. No bacteria or nitrites. Chest x-ray chronic changes. EKG sinus bradycardia rate of 53. Labs: Laboratory Results - last 24 hr 02/26/24 02/26/24 11:00 11:44 WBC 6.0 RBC 4.93 Hgb 14.5 Hct 44.7 MCV 90.7 MCH 29.4 MCHC 32.4 RDW Std Deviation 45.1 H RDW Coeff of Juan 13.4 Plt Count 252 MPV 10.7 Immature Gran % (Auto) 0.300 Neut % (Auto) 59.5 Lymph % (Auto) 28.0 [place] % (Auto) 7.5 Eos % (Auto) 3.5 Baso % (Auto) 1.2 H Absolute Neuts (auto) 3.6 Absolute Lymphs (auto) 1.69 Nucleated RBC % 0 Sodium 138 Potassium 3.6 Chloride 107 Carbon Dioxide 28.0 Anion Gap 3 L BUN 18 Creatinine 1.20 H Estim Creat Clear Calc 36.57 Est GFR (MDRD) Af Amer 55 L Est GFR (MDRD) Non-Af 45 L BUN/Creatinine Ratio 15.0 Glucose 171 H Calcium 8.9 Troponin I High Sens 7 Urine Color Yellow Urine Clarity Clear Urine pH 7.0 Ur Specific [place] 1.010 Urine Protein Negative Urine Glucose (UA) Normal Urine Ketones Negative Urine Occult Blood Negative Urine Nitrite Negative Urine Bilirubin Negative Urine Urobilinogen Normal Ur Leukocyte Esterase Negative Urine RBC 0 SEEN Urine WBC 0 SEEN Ur Squamous Epith Cells 0-5 SEEN Urine Bacteria 0 SEEN Urine Mucus 0 SEEN Radiography Chest X-Ray - ED: Read by ED Physician, Read by Radiologist, Heart, Lungs, Mediastinum, Bony Structures, No Acute Disease and Chronic Changes Diagnostic Testing: Clinical Impression(s) from Imaging Studies Chest X-Ray 02/26/24 12:05 IMPRESSION: Atelectatic changes or scarring in the right midlung and left lung base. No active pulmonary disease. Electronically Signed: Nick Russ MD at 12:20 EDT , Chest x-ray, portable, single view interpreted both by myself and the radiologist. Normal cardiac silhouette. Normal lung alexander. Chronic scarring in the lungs. No infiltrate or effusion. No acute processes. Rhythm Strip Rhythm Strip: Sinus bradycardia Rate: 53 Ectopy: None EKG Initial EKG: Attestation: I personally reviewed and interpreted this EKG as follows: Interpretation: Sinus Rhythm and Sinus Bradycardia Comments: Sinus bradycardia rate of 53 no acute signs of IA or ischemia. No ST elevation. No significant dysrhythmia other than mild bradycardia. Discharge Plan Triage Chief Complaint: Syncope ED Provider: Ezequiel Betancourt Dx/Rx/DC Orders Clinical Impression: Syncope, History of breast cancer, Bradycardia, sinus Prescriptions: No Action ascorbic acid (vitamin C) [Vitamin C] 500 mg Tablet 500 mg PO DAILY metoprolol tartrate 50 mg tablet 50 mg PO BID Patient Comments: TAKE 1 TABLET BY MOUTH TWICE DAILY lisinopril 30 mg tablet 30 mg PO DAILY Patient Comments: Take 1 tablet by mouth once daily. aspirin 81 mg Tablet,Chewable 81 mg PO DAILY cholecalciferol (vitamin D3) [Vitamin D3] 125 mcg (5,000 unit) Tablet 125 mcg PO DAILY amoxicillin-pot clavulanate [Augmentin] 500-125 mg tablet 1 tab PO BID 5 Days Qty: 10 0RF sertraline 50 mg tablet 100 mg PO QHS Patient Comments: TAKE 1 TABLET BY MOUTH DAILY AT BEDTIME Primary Care Provider: Lawson Ramos Referrals: Lawson Ramos [[facility]] - Disposition Disposition: Acute Care [facility]
[2024-02-26 11:18] LABS: Absolute Lymphocyte Count 1.69 X10^3/uL (0.83-4.51); Absolute Neutrophil Count 3.6 X10^3/uL (2.0-7.7); Basophil# 0.07 X10^3/uL; Basophil% 1.2 % (0-1); Eosinophil# 0.21 X10^3/uL; Eosinophils% 3.5 % (0-5); Hematocrit 44.7 % (37-47); Hemoglobin 14.5 g/dL (12.0-15.0); Lymphocyte # 1.69 X10^3/ul (0.83-4.51); Mean Corp Hgb Conc 32.4 g/dL (32-36); Mean Corpuscular Hgb 29.4 pg (27.0-32.0); Mean Corpuscular Volume 90.7 fL (81-99); Mean Platelet Vol. 10.7 fl (6.2-12.0); Monocyte# 0.45 X10^3/uL; Monocyte% 7.5 % (0-10); NRBC Flagged by Analyzer 0 % (0-5); Neutrophil % 59.5 % (47-70); Platelet Count 252 K/mm3 (150-450); RBC Distribution Width CV 13.4 % (11.6-14.6); RBC Distribution Width SD 45.1 fl (35.1-43.9); Red Blood Count 4.93 M/mm3 (4.2-5.4)
[2024-02-26 11:34] LABS: Anion Gap 3 (5-15); BUN 18 mg/dL (7-18); Calcium,Total 8.9 mg/dL (8.5-10.1); Chloride 107 mmol/L (98-107); EST Glomerular Filtration Rate 45 mL/min (>60); Est Glom Filt Rate - Afr Amer 55 mL/min (>60); Estimated Creatinine Clearance 36.57 ml/min; Glucose 171 mg/dL (74-106); Potassium 3.6 mmol/L (3.5-5.1); Sodium Level 138 mmol/L (136-145); Troponin-I HS 7 pg/mL (3.0-54.0)
[2024-02-26 11:48] LABS: Bacteria 0 SEEN /hpf (None Seen); Mucous, Urine 0 SEEN /hpf (<or=2+); Red Blood Cells-Urine 0 SEEN /hpf (0-5); White Blood Cells 0 SEEN /hpf (0-5)
[2024-02-26 11:49] LABS: Color, Urine Yellow (Yellow); Glucose, Dipstick Normal (Normal); Ketone-Dipstick Negative (Negative); Leukocyte Esterase-Dipstick Negative /ul (Negative); Nitrite-Dipstick Negative (Negative); Occult Blood-Urine Negative /ul (Negative); Protein-Dipstick Negative (Negative); Urine Bilirubin Dipstick Negative (Negative); Urine Clarity Clear (Clear); Urine Urobilinogen Normal (Normal)
[2024-02-26 11:55] LABS: Squamous Epithelial Cells - UA 0-5 SEEN /hpf (5-10)
--- NOTE | 2024-02-26 12:05 | RAD_ITS ---
INDICATION: chest pain EXAMINATION/TECHNIQUE: X-RAY - XR Chest 1 View COMPARISON: No relevant prior comparison study available FINDINGS: LINES/DEVICES: None. LUNGS: Minimal atelectatic changes in the left lung base. Mild stranding in the right upper lobe could be due to scarring.. No evidence of pleural effusions. MEDIASTINUM AND CARDIOVASCULAR STRUCTURES: Cardiac silhouette not enlarged. Central airways and mediastinal contour are unremarkable. BONES AND SOFT TISSUES: No demonstrated acute osseous changes. Surgical clips in right axilla. RAD/Chest 1 View (Portable) IMPRESSION: Atelectatic changes or scarring in the right midlung and left lung base. No active pulmonary disease. Electronically Signed: Nick Russ MD at 12:20 EDT ,
--- NOTE | 2024-02-26 12:56 | PCM.HP.STD ---
HPI - General General Date of Admission: 02/26/24 Date of Service: 02/26/24 Chief Complaint: Syncopal episode HPI Narrative GONZALO ALVARADO, is a 83 F who presented to [facility] ED on 02/26/2024 after having a syncopal episode at home. Patient seen at bedside in the ED, and [id number] present. Patient was sitting up fairly comfortably in bed, conversing normally, in no acute distress. Patient remembers eating breakfast without issue and then was in the bathtub after breakfast when she began to feel somewhat clammy and lightheaded. Her sqbkymob-qx-yxr helped her out of the bathtub and she does not remember much after that until arriving in the ED. Fpdvceza-[id number] and supplemented patient history. Awnngbdn-va-tib states that the patient passed out after she was held out of bathtub. She and patient's put her on a chair, so she never fell or was injured. However, patient was unconscious for at least 10 to 15 minutes, and family noted that even in the squad ride over she was still very lethargic and out of it. She returned to her baseline about 45 minutes to 1 hour after the episode. They feel that the patient is currently at her baseline mental status. Patient does have a history of a few episodes like this in the past. Had a syncopal episode concerning for stroke back in 2021 requiring a short admission here. She presented at that time after having presyncopal symptoms and then syncopized and into her planter while working out in the garden. During that hospitalization, workup was largely negative. Her echo showed an EF of 55%, stage I diastolic function, no other abnormalities. Orthostatic vitals were negative. Cardiac enzymes were negative. CT brain without contrast was unremarkable. CTA head/neck was unremarkable except for calcific plaque at origin of right internal carotid artery. Neurology followed and did not feel the carotid findings were related to her symptoms. She improved back to her baseline mental status fairly quickly but that hospitalization was complicated by bright red blood rectum that was suspected secondary to ischemic colitis. She was also found to have a UTI at that time. In the ED, she was found to have sinus bradycardia with heart rate consistently in the 50s. Blood pressure was initially normotensive to mildly hypertensive. Did have mild creatinine elevation of 1.20 and labs appeared mildly hemoconcentrated compared to previous labs but were otherwise fairly benign. Chest x-ray was nonacute. Patient did have significant hypertension to the low 200 systolic shortly after arriving to the floor, was asymptomatic and had no focal neurologic symptoms. CTA head/neck was obtained to assess for CVA, was unremarkable. Given syncope of unclear etiology, patient was hospitalized for further management. [facility] Medical History (Updated 02/26/24 @ 15:57 by Jeri Winter) Actinic skin damage Borderline abnormal TFTs Breast cancer Cerebral microvascular disease CHF (congestive heart failure) COVID-19 Dementia Essential hypertension Hx of breast cancer Hypertension Inflamed seborrheic keratosis Late onset Alzheimer's dementia without behavioral disturbance Lipoma Osteoporosis Over 65 years old Rosacea Solar lentigo Tongue lesion Viral warts Vitamin D deficiency Home Medications aspirin 81 mg chewable tablet 81 mg PO DAILY preventative 05/25/22 [History Last Taken 02/26/24] cholecalciferol (vitamin D3) 125 mcg (5,000 unit) tablet (Vitamin D3) 125 mcg PO DAILY suppliment 05/25/22 [History Last Taken 02/26/24] lisinopril 30 mg tablet 30 mg PO DAILY blood pressure 05/25/22 [History Last Taken 02/26/24] metoprolol tartrate 50 mg tablet 50 mg PO BID heart 05/25/22 [History Last Taken 02/26/24] sertraline 50 mg tablet 100 mg PO QHS depression 12/17/22 [History Last Taken Unknown] cephalexin 250 mg capsule 250 mg PO .1 daily MoWedFri 02/26/24 [History Last Taken 02/26/24] cyanocobalamin (vitamin B-12) 1,000 mcg/mL injection solution 1,000 mcg IM QMONTH 02/26/24 [History Last Taken Unknown] krill oil 500 mg capsule 1,000 mg PO DAILY SUPPLEMENT 02/26/24 [History Last Taken 02/26/24] lidocaine 5 % topical patch See Rx Instructions topical .COMPLEX 02/26/24 [History Last Taken Unknown] methocarbamol 500 mg tablet 250 - 500 mg PO BID PRN PRN muscle spasm 02/26/24 [History Last Taken 02/26/24] turmeric 1 cap PO DAILY SUPPLEMENT 02/26/24 [History Last Taken 02/26/24] Allergy/AdvReac Type Severity Reaction Status Date / Time No Known Allergies Allergy Verified 02/26/24 10:26 Family History no significant family his Surgical History (Updated 02/26/24 @ 15:57 by Jeri Winter) H/O mastectomy Social History household members: spouse housing: house Smoking Status: Never smoker alcohol intake: never substance use type: does not use ROS Constitutional Constitutional: Denies chills, fatigue, fever(s) or weakness Eyes Eyes: Denies change in vision Cardiovascular Cardiovascular: Denies chest pain Respiratory/Chest Respiratory/Chest: Denies cough, shortness of breath at rest or shortness of breath with exertion Gastrointestinal Gastrointestinal: Denies abdominal pain, nausea or vomiting Genitourinary Genitourinary: Denies dysuria Musculoskeletal Musculoskeletal: Denies arthralgias, back pain or myalgias Neurologic Neurologic: Denies focal weakness, headache(s) or numbness Vital Signs Vital Signs Vital Signs: 02/26/24 10:26 02/26/24 10:26 02/26/24 11:16 Temperature 97.6 F L Temperature Source Temporal Pulse Rate 57 L Respiratory Rate 18 Respiratory Effort Normal Respiratory Pattern Normal Blood Pressure 138/71 H Blood Pressure Mean 93 Pulse Ox 94 Oxygen Delivery Method Room Air Room Air 02/26/24 11:39 02/26/24 12:00 Temperature Temperature Source Pulse Rate 56 L 52 L Respiratory Rate 14 14 Respiratory Effort Respiratory Pattern Blood Pressure 125/78 H 156/70 H Blood Pressure Mean 93 98 Pulse Ox 95 98 Oxygen Delivery Method Room Air Room Air Weight Weight: 83.9 kg Body Mass Index (BMI) 31.7 Physical Exam Const alert, oriented x3, no apparent distress and average body habitus Constitutional Narrative: Pleasant elderly female, sitting up comfortably in bed, conversing normally, in no acute distress. General Appearance: cooperative and comfortable HEENT normocephalic, head/scalp atraumatic, hearing grossly normal bilaterally and nasal mucous membranes and turbinates normal Eyes PERRL, EOMs intact bilaterally and conjunctivae normal Neck full ROM Chest inspection of chest normal Resp normal respiratory effort, normal air movement, no use of accessory muscles and clear to auscultation bilaterally Cardio no murmurs and peripheral pulses 2+ throughout Cardio Narrative: Bradycardic, regular rhythm. GI normal to inspection, nondistended, normoactive bowel sounds, soft to palpation, non-tender and non-distended Back/Spine normal ROM Extremity normal to inspection, full ROM and no pedal edema Skin no rashes or lesions noted Neuro moves all extremities and no focal motor deficits Speech: speech normal Psych mental status grossly normal Results Lab / Micro Data 02/26/24 11:00 02/26/24 11:00 Labs: Laboratory Results - last 24 hr 02/26/24 11:00: WBC 6.0, RBC 4.93, Hgb 14.5, Hct 44.7, MCV 90.7, MCH 29.4, MCHC 32.4, RDW Std Deviation 45.1 H, RDW Coeff of Juan 13.4, Plt Count 252, MPV 10.7, Immature Gran % (Auto) 0.300, Neut % (Auto) 59.5, Lymph % (Auto) 28.0, [place] % (Auto) 7.5, Eos % (Auto) 3.5, Baso % (Auto) 1.2 H, Absolute Neuts (auto) 3.6, Absolute Lymphs (auto) 1.69, Nucleated RBC % 0, Sodium 138, Potassium 3.6, Chloride 107, Carbon Dioxide 28.0, Anion Gap 3 L, BUN 18, Creatinine 1.20 H, Estim Creat Clear Calc 36.57, Est GFR (MDRD) Af Amer 55 L, Est GFR (MDRD) Non-Af 45 L, BUN/Creatinine Ratio 15.0, Glucose 171 H, Calcium 8.9, Troponin I High Sens 7 02/26/24 11:44: Urine Color Yellow, Urine Clarity Clear, Urine pH 7.0, Ur Specific [place] 1.010, Urine Protein Negative, Urine Glucose (UA) Normal, Urine Ketones Negative, Urine Occult Blood Negative, Urine Nitrite Negative, Urine Bilirubin Negative, Urine Urobilinogen Normal, Ur Leukocyte Esterase Negative, Urine RBC 0 SEEN, Urine WBC 0 SEEN, Ur Squamous Epith Cells 0-5 SEEN, Urine Bacteria 0 SEEN, Urine Mucus 0 SEEN Rhythm Strip Rhythm Strip: Sinus bradycardia Rate: 53 Ectopy: None Imaging Radiology Impression Chest X-Ray 02/26/24 12:05 IMPRESSION: Atelectatic changes or scarring in the right midlung and left lung base. No active pulmonary disease. Electronically Signed: Nick Russ MD at 12:20 EDT , Assessment & Plan Assessment/Plan (1) Bradycardia, sinus: (2) Syncope: PLAN: Plan Patient is an 83-year-old female who presented to [facility] ED on 02/26/2024 after an episode of syncope at home. 1. Syncopal episode Presented after a witnessed syncopal episode at home. Unclear etiology but does seem most consistent with a vasovagal syncopal episode, possibly precipitated by mild dehydration and poor heart rate response while on beta-robbin medication. EKG showed sinus bradycardia, no ST changes. Chest x-ray nonacute. Troponin normal. Mild creatinine elevation and mildly hemoconcentrated labs, labs otherwise benign. CTA head/neck with no concerning findings. UA benign. Last echo in 2021 showed EF 55%, stage I diastolic dysfunction, no other abnormalities. ? Admit under observation status to PCU. Continue cardiac monitoring. Echo ordered. Orthostatic vitals ordered. PT/OT/case management consulted. Will hold home beta-robbin for now. Monitor closely. 2. Mild creatinine elevation ? Creatinine 1.20 on admit, baseline creatinine appears to be around 0.9-1.1. Suspect due to mild dehydration. Will give patient 1 L LR over 8 hours today, recheck BMP tomorrow. Monitor urine output. Hold home lisinopril for now. 3. Sinus bradycardia ? Noted on admission. EKG showed sinus bradycardia with heart rate in the low 50s, no ST changes. Is on Lopressor 50 mg twice daily at home for hypertension, reports adherence. Seems less likely to be symptomatic bradycardia but given suspected predisposition for syncopal episodes, may need to decrease beta-robbin dosing and consider adding other antihypertensives as needed on discharge. 4. Hypertension ? Home regimen of Lopressor 50 mg twice daily, lisinopril 30 mg daily. Holding both medications for now as noted above. IV hydralazine 10 mg or 4 hours as needed for systolic blood pressures greater than 170. 5. Mood disorder ? Stable. Continue home sertraline. 6. History of breast cancer ? Remote history in 2003 s/p mastectomy and chemotherapy with no recurrence. DVT prophylaxis: Heparin subcu CODE STATUS: Full code, verified Expected disposition: Home, 1 to 2 days Total clinical time spent by myself addressing the patient's medical issues, reviewing all the data, and collaborating with patient's care team: 55 minutes. Charges/Coding Visit Charges Inpatient E&M: 42944 Init Hosp L2
--- NOTE | 2024-02-26 14:05 | ECHOD_ITS ---
Reason For Study: SYNCOPE Procedure This was a 2D Doppler, Color Flow transthoracic echocardiogram. Exam performed portable in patient room. Left Ventricle Normal LV size. Moderate concentric left ventricular hypertrophy. The left ventricular ejection fraction is 50 %. Posterior basal hypokinesis. Stage 1 diastolic dysfunction. Right Ventricle Normal right ventricle. Atria The left and right atria are normal. Mitral Valve Trivial mitral valve insufficiency. Tricuspid Valve Mild tricuspid valve insufficiency. Right ventricular systolic pressure estimated to be 38 mmHg. Aortic Valve Trisinus/trileaflet aortic valve. Pulmonic Valve The pulmonic valve is not well visualized. Great Vessels Normal sized aortic root. Pericardium/Pleural No pericardial effusion. MMode/2D Measurements & Calculations LVIDd: 3.6 cm IVSd: 1.1 cm LAV(MOD-bp): 27.6 ml LVIDs: 3.2 cm LVPWd: 1.4 cm LAV(MOD-bp) Indexed: 14.6 ml/m2 FS: 11.1 % LAV(MOD-sp2): 28.4 ml LAV(MOD-sp4): 26.2 ml SV(MOD-sp4): 15.6 ml SV(sp4-el): 18.0 ml LVAd ap4: 16.2 cm2 LVLd ap4: 6.1 cm EDV(MOD-sp4): 35.5 ml EDV(sp4-el): 36.2 ml LVAs ap4: 10.7 cm2 LVLs ap4: 5.3 cm ESV(MOD-sp4): 19.9 ml ESV(sp4-el): 18.2 ml EF(MOD-sp4): 43.9 % EF(sp4-el): 49.7 % LA A4 area: 12.1 cm2 LA dimension(2D): 2.7 cm RA A4 area: 5.9 cm2 TAPSE: 0.90 cm Time Measurements MV dec time: 0.10 sec Doppler Measurements & Calculations MV E max eric: 37.2 cm/sec Lat Peak E' Eric: 9.4 cm/sec Med Peak E' Eric: 6.3 cm/sec MV A max eric: 74.7 cm/sec E/E' lat: 4.0 E/E' med: 5.9 MV E/A: 0.50 MV V2 max: 68.0 cm/sec Ao V2 max: 86.3 cm/sec MV max P.8 mmHg MV dec slope: 379.6 cm/sec2 Ao max P.0 mmHg MV V2 mean: 45.4 cm/sec Ao V2 mean: 61.8 cm/sec MV mean P.93 mmHg Ao mean P.8 mmHg MV V2 VTI: 11.5 cm Ao V2 VTI: 17.0 cm AV (velocity ratio): 1.1 LV V1 max: 84.5 cm/sec LV V1 max P.9 mmHg LV V1 mean P.5 mmHg LV V1 mean: 55.5 cm/sec LV V1 VTI: 19.0 cm ECHO/Echo Complete Interpretation Summary Moderate concentric left ventricular hypertrophy. The left ventricular ejection fraction is 50 %. Posterior basal hypokinesis. Stage 1 diastolic dysfunction. Mild tricuspid valve insufficiency. Right ventricular systolic pressure estimated to be 38 mmHg. Ordering Physician: Dex Landaverde Referring Physician: GABRIELLE CANELA Performed By: Candie Simental RCS
--- NOTE | 2024-02-26 14:28 | CT_ITS ---
INDICATION: h/o of carotid stenosis, r/o CVA EXAMINATION: CT BRAIN WITHOUT CONTRAST, CTA HEAD, AND CTA NECK TECHNIQUE: Noncontrast axial images were obtained of the brain. Subsequently, routine carotid CT angiogram protocol was performed without and with IV contrast. In addition, images were obtained of the [place]. NASCET criteria using the distal ICAs for comparison were used for evaluation of stenoses. 3D reconstructions were reviewed. A radiation dose optimization technique was used for this scan. IV Contrast dosage and agent: 100 cc of [id number] COMPARISON: No relevant prior comparison study available FINDINGS: --CT BRAIN WITHOUT CONTRAST: BRAIN PARENCHYMA: No intra- or extra-axial hemorrhage. No evidence of acute infarct. No intracranial mass or mass effect. There is preservation of the aldridge/white matter interface. Periventricular deep white matter changes likely due to chronic microvascular disease. Posterior fossa structures are unremarkable. CSF SPACES: Moderate diffuse atrophy. Basal cisterns are patent. CALVARIUM, SKULL BASE, PARANASAL SINUSES AND MASTOID AIR CELLS: Clear. No discrete lytic or blastic abnormalities. --CTA NECK: AORTIC ARCH AND BRANCHES: Normal anatomy, patent. RIGHT CCA: No occlusion, significant stenosis or dissection. RIGHT ICA: Moderate atherosclerotic calcifications of the origin of the right ICA with less than 50% stenosis. LEFT CCA: No occlusion, significant stenosis or dissection. LEFT ICA: Minimal atherosclerotic calcifications of the origin of the left ICA without significant stenosis. RIGHT VERTEBRAL ARTERY: No occlusion, significant stenosis or dissection. LEFT VERTEBRAL ARTERY: No occlusion, significant stenosis or dissection. NECK SOFT TISSUES: Unremarkable. --CTA HEAD: --Anterior circulation: ICAs: No significant stenosis at the intracranial/visualized segments. ACAs: No significant stenosis at the visualized segments. ACOM: Not clearly visualized. MCAs: No significant stenosis at the visualized segments. 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 BASILAR ARTERY: No significant stenosis. VERTEBRAL ARTERIES: No significant stenosis at the intradural/visualized segments. Dominant right side. No evidence of intracranial aneurysm or vascular malformation. CT/CTA Head AND Neck W/ Contrast IMPRESSION: 1. Unremarkable bilateral CCAs. 2. Atherosclerotic calcifications of the origin of the ICAs with less than 50% stenosis on the right side. 3. No intracranial great vessel stenosis. 4. Patent bilateral vertebral arteries without evidence of stenosis. Electronically Signed: Nick Russ MD at 15:24 EDT ,
[2024-02-26] MEDS: hydrALAZINE 20 MG/ML Vial 10 MG IV (14:39)
[2024-02-26] MEDS: Lactated Ringers 1,000 ML 125 ML IV ×2 (15:44→23:58)
[2024-02-26] MEDS: Heparin Injection (Vial) 5,000 UNIT/ML VIAL 5000 UNIT SC (22:52)
[2024-02-26] MEDS: Sertraline 100 MG Tablet PO (22:52)
[2024-02-27] VITALS (7 sets, daily range): BP systolic 148–175; BP diastolic 81–93; PULSE 86–93; RESP 16–18; TEMP 36.4–36.5; O2SAT 95–97
[2024-02-27] MEDS: hydrALAZINE 20 MG/ML Vial 10 MG IV (04:39)
[2024-02-27] MEDS: Ondansetron 4 MG/2 ML Vial IV (05:25)
[2024-02-27] MEDS: 0.9% Saline Lock 10 ML Syringe IV (05:26)
[2024-02-27 07:02] LABS: Hematocrit 40.8 % (37-47); Hemoglobin 13.5 g/dL (12.0-15.0); Mean Corp Hgb Conc 33.1 g/dL (32-36); Mean Corpuscular Volume 87.7 fL (81-99); Mean Platelet Vol. 10.7 fl (6.2-12.0); Platelet Count 227 K/mm3 (150-450); RBC Distribution Width CV 13.2 % (11.6-14.6); RBC Distribution Width SD 42.5 fl (35.1-43.9); Red Blood Count 4.65 M/mm3 (4.2-5.4); White Blood Count 8.7 K/mm3 (4.4-11.0)
[2024-02-27 07:28] LABS: Anion Gap 6 (5-15); BUN 14 mg/dL (7-18); BUN/Creat Ratio 17.1 RATIO (10-20); Calcium,Total 8.6 mg/dL (8.5-10.1); Chloride 105 mmol/L (98-107); Creatinine, Serum 0.82 mg/dL (0.55-1.02); EST Glomerular Filtration Rate 71 mL/min (>60); Est Glom Filt Rate - Afr Amer 85 mL/min (>60); Glucose 164 mg/dL (74-106); Potassium 3.1 mmol/L (3.5-5.1); Sodium Level 136 mmol/L (136-145)
[2024-02-27 09:01] LABS: Magnesium 1.7 mg/dL (1.6-2.6); Phosphorus 2.3 mg/dL (2.5-4.9)
[2024-02-27] MEDS: Heparin Injection (Vial) 5,000 UNIT/ML VIAL 5000 UNIT SC (09:32)
[2024-02-27] MEDS: Aspirin 81 MG TAB.CHEW PO (09:33)
[2024-02-27] MEDS: Lisinopril 10 MG Tablet PO (09:36)
[2024-02-27] MEDS: amLODIPine 5 MG Tablet PO (09:37)
[2024-02-27] MEDS: Metoprolol Tartrate 25 MG Tablet PO (09:37)
[2024-02-27] MEDS: Potassium Chloride Oral Tablet 20 MEQ 40 MEQ PO (09:37)
--- NOTE | 2024-02-27 11:20 | CASEMGMT ---
Addendum entered by Rafi Gay 02/27/24 15:04: Per Faith @ [facility], they are able to accept pt w/SOC slated for next Wed. This was documented in pt's dc plan and TILE MACHINE OPERATOR TAISHA, Brandi, notified of same. Addendum entered by Rafi Gay 02/27/24 14:23: Therapy in pt's room for eval at this time. RN CM to room to talk w/ and family. They would like [facility] and decline wanting list of other [facility] options. Call placed to Faith @ [facility] and referral made. She states they do not have therapy available until next week, Sat. Family made aware and state they would still like [facility] and they are okay w/Wed SOC. Original Note: RN CM SENIOR QUALITY ASSURANCE SPECIALIST CM to room to meet with patient for initial transition planning/care coordination assessment. RN TAISHA introduced self and role at [facility].? Pt voices understanding and consents to assessment at this time.? Pt resting in bed in no distress at this time.? , daughter/Mallorie, and granddaughter, @ bedside. Pt is alert but very forgetful and had difficulty recalling info. Pt w/dx of dementia. She was able to answer some of the questions appropriately and family provided rest of info.?? Care providers, pharmacy, and demographics verified/updated at this time. PCP: Dr Ramos Specialists: none Preferred Pharmacy: [facility] Retail @ discharge. Insurance: [facility], MMO Prescription Benefit:? Yes Living Will/HPOA:? Pt has both LW and HPOA, who is her , Jose Daniel. LNOK: , Jose Daniel. 2 Dtr's, Mallorie and Sendy. Son, Deondre. Living Arrangements: Lives w/her in split-level home w/2 steps to enter. They do have a stair lift, but pt has not used it yet. 6 steps b/w levels. Pt does okay w/the stairs. Family able to assist. Dtr's assist pt w/bathing 2-3 x's/week. Mallorie manages her medications. Family assists w/IADL's. Transportation: Family DME: ?Has the following DME:? commode riser (not currently using), grab bars, BP cuff, bathtub lift, cane. Pt has a walker available, but does not use. Family in the process of getting a rollator and deny needing assistance w/this. Family states no need for further DME at this time.? HHC/SNF: No hx of SNF, has had HHC about 20 yrs ago and another HHC a couple yrs ago and they think it was [facility]HC. Family wish for pt to discharge home and have no concern with pt going home at time of discharge.? They voice no further concerns/needs at this time.? Advised them to ask for CM if any further questions/concerns/needs arise.? They voice understanding. CRISTOBAL form explained re: Observation status for treatment of syncope.? Explained hospitalization will be paid per?her insurance policy for Outpatient billing?and condition will continue to be evaluated for Inpt necessity. Also let pt know that [facility] sends paper in the billing packet with their phone number if questions arise. verbalizes understanding and does not have further questions. ?Form signed, copy made and placed in chart, and original given to family. PLAN: ?Home w/family support. Follow therapy. PT/OT evals pending. Joe CAMPBELL RN CM
[2024-02-27] MEDS: Magnesium Sulfate 2 GM in Dextrose 5%-Water (100mL Bag) 100 ML IV (12:17)
[2024-02-27] MEDS: Na Biphos/Potassium Phosphate PACKET 1 PACKET PO (12:20)
--- NOTE | 2024-02-27 12:26 | PCM.PN.HOSP ---
Reason for Visit Reason for Visit: Diagnoses Bradycardia, unspecified (02/26/24) Syncope and collapse (02/26/24) Objective Data Objective Data Vital Signs: Vital Signs Temp Pulse Resp BP Pulse Ox O2 Del Method 97.6 F L 88 18 148/81 H 95 Room Air 02/27/24 09:21 02/27/24 09:37 02/27/24 09:21 02/27/24 09:21 02/27/24 09:36 02/27/24 09:36 Oxygen Delivery Method Room Air Weight: 62.3 kg Body Mass Index (BMI) 23.6 Intake & Output: Intake and Output for Last 24 Hours 02/25/24 02/26/24 02/27/24 23:59 23:59 23:59 Intake Total 1360 / 1360 Output Total 850 / 850 Balance 510 / 510 Lab / Micro Data 02/27/24 06:25 02/27/24 06:25 Labs: Laboratory Results - last 24 hr 02/27/24 06:25: WBC 8.7, RBC 4.65, Hgb 13.5, Hct 40.8, MCV 87.7, MCH 29.0, MCHC 33.1, RDW Std Deviation 42.5, RDW Coeff of Juan 13.2, Plt Count 227, MPV 10.7, Sodium 136, Potassium 3.1 L, Chloride 105, Carbon Dioxide 25.0, Anion Gap 6, BUN 14, Creatinine 0.82, Estim Creat Clear Calc 44.10, Est GFR (MDRD) Af Amer 85, Est GFR (MDRD) Non-Af 71, BUN/Creatinine Ratio 17.1, Glucose 164 H, Calcium 8.6, Phosphorus 2.3 L, Magnesium 1.7 Radiography Diagnostic Testing: Radiology Impression Echocardiogram 02/26/24 14:05 Interpretation Summary Moderate concentric left ventricular hypertrophy. The left ventricular ejection fraction is 50 %. Posterior basal hypokinesis. Stage 1 diastolic dysfunction. Mild tricuspid valve insufficiency. Right ventricular systolic pressure estimated to be 38 mmHg. Ordering Physician: Dex Landaverde Referring Physician: GABRIELLE CANELA Performed By: Candie Simental RCS Head/Neck CTA 02/26/24 14:28 IMPRESSION: 1. Unremarkable bilateral CCAs. 2. Atherosclerotic calcifications of the origin of the ICAs with less than 50% stenosis on the right side. 3. No intracranial great vessel stenosis. 4. Patent bilateral vertebral arteries without evidence of stenosis. Electronically Signed: Nick Russ MD at 15:24 EDT , Rhythm Strip Rhythm Strip: Sinus bradycardia Rate: 53 Ectopy: None
--- NOTE | 2024-02-27 13:51 | DCINST_ITS ---
Discharge Instructions Diet Discharge Diet: No restrictions Activity Discharge Activity: No Restrictions Weight Bearing Status: Full weight bearing Follow Up Care Test Results: Test results from this visit will be discussed in further detail at your follow- up appointment, if applicable. Discharge Plan Admission Admit Date/Time: 02/26/24 12:58 Primary Reason for Your Visit: Episode of passing out Attending Provider: Dex Landaverde Primary Care Provider: Lawson Ramos Consulting Providers: Aniya Malik Discharge Orders/Prescriptions Prescriptions: New amlodipine 5 mg Tablet 5 mg PO DAILY 30 Days Qty: 30 0RF lisinopril 10 mg Tablet 10 mg PO DAILY 30 Days Qty: 30 0RF metoprolol tartrate 25 mg Tablet 25 mg PO BID 30 Days Qty: 60 0RF Continued aspirin 81 mg Tablet,Chewable 81 mg PO DAILY cholecalciferol (vitamin D3) [Vitamin D3] 125 mcg (5,000 unit) Tablet 125 mcg PO DAILY sertraline 50 mg tablet 100 mg PO QHS cephalexin 250 mg capsule 250 mg PO .1 daily MoWedFri Patient Comments: MoWeFri, 1 daily cyanocobalamin (vitamin B-12) 1,000 mcg/mL solution 1,000 mcg IM QMONTH Patient Comments: FAMILY AND PT UNAWARE OF LAST INJECTION. WILL CALL IN TO GIVE LAST DOSE AT A LATER TIME methocarbamol 500 mg tablet 250 - 500 mg PO BID PRN PRN (Reason: muscle spasm) turmeric 1 cap PO DAILY Patient Comments: PT AND FAMILY UNAWARE OF STRENGTH krill oil 500 mg capsule 1,000 mg PO DAILY lidocaine 5 % adhesive patch,medicated See Rx Instructions .ROUTE .COMPLEX Rx Instructions: leave on most painful area for up to 12 hrs Discontinued metoprolol tartrate 50 mg tablet 50 mg PO BID lisinopril 30 mg tablet 30 mg PO DAILY Other Ambulatory Orders: Nuclear Stress Test - Chemical (Routine) Facility: [facility] - Location: [facility] Ordered By: Dr. Dex Landaverde Referrals / Follow Up: Lawson Ramos DO [Primary Care Provider] - Lawson Ramos O[facility] [[facility]] - Disposition Disposition (needs filled in before D/C Order can be placed): Home, Self Care
--- NOTE | 2024-02-27 13:56 | PCM.DC.SUM ---
Providers Date of Admission: 02/26/24 Date of Discharge: 02/27/24 Primary Care Physician: Dr. Lawson Ramos, Consultations 02/27/24 11:22 Consult: Cardiology Routine Consulting Provider: Aniya Malik Reason for Consult: new RWMA on echo, stress vs cath EMERGENT Consult: No MD Notified: Yes Date Notified: 02/27/24 Time Notified: 11:38 Method of Notification: Text Reason For Visit: SYNCOPE Diagnosis Discharge Diagnosis (1) Bradycardia, sinus: Status: Acute Code(s): R00.1 - Bradycardia, unspecified (2) Syncope: Status: Acute Code(s): R55 - Syncope and collapse Medications at Discharge Home Medications aspirin 81 mg chewable tablet 81 mg PO DAILY preventative 05/25/22 cholecalciferol (vitamin D3) 125 mcg (5,000 unit) tablet (Vitamin D3) 125 mcg PO DAILY suppliment 05/25/22 sertraline 50 mg tablet 100 mg PO QHS depression 12/17/22 cephalexin 250 mg capsule 250 mg PO .1 daily MoWedFri 02/26/24 cyanocobalamin (vitamin B-12) 1,000 mcg/mL injection solution 1,000 mcg IM QMONTH 02/26/24 krill oil 500 mg capsule 1,000 mg PO DAILY SUPPLEMENT 02/26/24 lidocaine 5 % topical patch See Rx Instructions topical .COMPLEX 02/26/24 methocarbamol 500 mg tablet 250 - 500 mg PO BID PRN PRN muscle spasm 02/26/24 turmeric 1 cap PO DAILY SUPPLEMENT 02/26/24 amlodipine 5 mg tablet 5 mg PO DAILY 30 days #30 tabs 02/27/24 lisinopril 10 mg tablet 10 mg PO DAILY 30 days #30 tabs 02/27/24 metoprolol tartrate 25 mg tablet 25 mg PO BID 30 days #60 tabs 02/27/24 Hospital Course Operations None Procedures EKG, Transthoracic echo and - (Chest x-ray, CTA head/neck) Summary of Care Provided Minutes Spent on Discharge: 35 Hospital Course: Patient is an 83-year-old female who presented to [facility] ED on 02/26/2024 after an episode of syncope at home. Short hospital course as noted below. Patient discharged home with no therapy needs in stable condition on 02/26. 1. Syncopal episode; abnormal TTE Presented after a witnessed syncopal episode at home. Unclear etiology but does seem most consistent with a vasovagal syncopal episode, possibly precipitated by mild dehydration and poor heart rate response while on beta-robbin medication. EKG showed sinus bradycardia, no ST changes. Chest x-ray nonacute. Troponin normal. Mild creatinine elevation and mildly hemoconcentrated labs, labs otherwise benign. CTA head/neck with no concerning findings. UA benign. Last echo in 2021 showed EF 55%, stage I diastolic dysfunction, no other abnormalities. ? TTE on 02/26 showed EF 50%, moderate concentric LV hypertrophy, stage I diastolic dysfunction, posterior basal hypokinesis. Discussed over the phone with Dr. Malik with cardiology, who noted that the area in question was very small and he had only mild concern with this. He recommended nuclear stress test for further evaluation. Plan was for inpatient stress test, however family desired for patient to be discharged and have outpatient stress test done given patient's history of dementia causing her to have significant difficulty from a mental status standpoint while in the hospital. Discussed with nuclear medicine department, who looked at the schedule and hope is that stress test can be done early to mid next week. Outpatient nuclear stress test order placed and scheduling will call patient to confirm time of stress test. Otherwise, telemetry showed normal sinus rhythm during hospitalization. Did make some medication changes as notable low. PT/OT/case management followed, okay for discharge home with no needs. 2. Mild creatinine elevation, resolved ? Creatinine 1.20 on admit, baseline creatinine appears to be around 0.9-1.1. Suspect due to mild dehydration. Gave 1 L of IV fluids on day of admission, repeat creatinine 0.80 on day of discharge. Patient had good urine output. Home lisinopril held during admission and on discharge as noted below. 3. Sinus bradycardia, improved ? Noted on admission. EKG showed sinus bradycardia with heart rate in the low 50s, no ST changes. Is on Lopressor 50 mg twice daily at home for hypertension, reported adherence. Was on telemetry during hospitalization, which showed normal sinus rhythm while she was off of the beta-robbin medication. No concern for heart block. Decreased beta-robbin dose on discharge as noted below. 4. Hypertension ? Home regimen of Lopressor 50 mg twice daily, lisinopril 30 mg daily. Has been on this regimen for many years. Lopressor and lisinopril were held on admission and patient was quite hypertensive to the 180s to 190s. Notably had CTA head/neck done with no concern for stroke. Adjusted regimen on discharge to Lopressor 25 mg twice daily, lisinopril 10 mg daily and amlodipine 5 mg daily. Recommended outpatient follow-up with PCP in 1 to 2 weeks for further medication titration as needed. 5. Mood disorder ? Stable. Continue home sertraline. 6. History of breast cancer ? Remote history in 2003 s/p mastectomy and chemotherapy with no recurrence. 7. History of dementia ? Not on any home medications. Was alert and oriented during hospitalization but family noted significant agitation while hospitalized concerning for a mild degree of hospital related delirium. Noted for future hospitalizations. Total clinical time spent by myself addressing the patient's medical issues, reviewing all the data, and collaborating with patient's care team: 35 minutes. Physical Exam Const alert, oriented x3, no apparent distress and average body habitus Constitutional Narrative: Pleasant elderly female, sitting up comfortably in bed, conversing normally, in no acute distress. General Appearance: cooperative and comfortable HEENT normocephalic, head/scalp atraumatic, hearing grossly normal bilaterally and nasal mucous membranes and turbinates normal Eyes PERRL, EOMs intact bilaterally and conjunctivae normal Neck full ROM Chest inspection of chest normal Resp normal respiratory effort, normal air movement, no use of accessory muscles and clear to auscultation bilaterally Cardio regular rate, regular rhythm, no murmurs and peripheral pulses 2+ throughout GI normal to inspection, nondistended, normoactive bowel sounds, soft to palpation, non-tender and non-distended Back/Spine normal ROM Extremity normal to inspection, full ROM and no pedal edema Skin no rashes or lesions noted Neuro moves all extremities and no focal motor deficits Speech: speech normal Psych mental status grossly normal Weight / BMI Weight Weight: 62.3 kg Body Mass Index (BMI) 23.6 ABG / Lab / Microbiology Data 02/27/24 06:25 02/27/24 06:25 Laboratory: Laboratory Results - last 24 hr 02/27/24 06:25: WBC 8.7, RBC 4.65, Hgb 13.5, Hct 40.8, MCV 87.7, MCH 29.0, MCHC 33.1, RDW Std Deviation 42.5, RDW Coeff of Juan 13.2, Plt Count 227, MPV 10.7, Sodium 136, Potassium 3.1 L, Chloride 105, Carbon Dioxide 25.0, Anion Gap 6, BUN 14, Creatinine 0.82, Estim Creat Clear Calc 44.10, Est GFR (MDRD) Af Amer 85, Est GFR (MDRD) Non-Af 71, BUN/Creatinine Ratio 17.1, Glucose 164 H, Calcium 8.6, Phosphorus 2.3 L, Magnesium 1.7 Radiography Diagnostic Testing: Radiology Impression Echocardiogram 02/26/24 14:05 Interpretation Summary Moderate concentric left ventricular hypertrophy. The left ventricular ejection fraction is 50 %. Posterior basal hypokinesis. Stage 1 diastolic dysfunction. Mild tricuspid valve insufficiency. Right ventricular systolic pressure estimated to be 38 mmHg. Ordering Physician: Dex Landaverde Referring Physician: LAWSON RAMOS Performed By: Candie Simental RCS Head/Neck CTA 02/26/24 14:28 IMPRESSION: 1. Unremarkable bilateral CCAs. 2. Atherosclerotic calcifications of the origin of the ICAs with less than 50% stenosis on the right side. 3. No intracranial great vessel stenosis. 4. Patent bilateral vertebral arteries without evidence of stenosis. Electronically Signed: Nick Russ MD at 15:24 EDT , D/C Instructions Discharge Diet: No restrictions Weight Bearing Status: Full weight bearing Meaningful Use Info Meaningful Use Meaningful Use Diagnoses (Choose all that apply): None applicable Ischemic Stroke Statin Dosing Therapy Reference: STATIN DOSE THERAPY REFERENCE: * Patients > 75 years receive moderate or high dose statin therapy. * Patients 75 years or YOUNGER should receive HIGH intensity statin dose unless contraindicated. You will be required to document reason for non-treatment if statin daily dose does not meet guidelines. HIGH DOSE STATIN THERAPY DAILY Atorvastatin > than or = to 40 mg Rosuvastatin > than or = to 20 mg Amlodipine + Atorvastatin > than or = to 2.5/40 mg Ezetimibe + Simvastatin 10/80 mg Simvastatin 80mg Discharge Plan Admission Admit Date/Time: 02/26/24 12:58 Primary Reason for Your Visit: Episode of passing out Attending Provider: Dex Landaverde Primary Care Provider: Lawson Ramos Consulting Providers: Aniya Malik Discharge Orders/Prescriptions Prescriptions: New amlodipine 5 mg Tablet 5 mg PO DAILY 30 Days Qty: 30 0RF lisinopril 10 mg Tablet 10 mg PO DAILY 30 Days Qty: 30 0RF metoprolol tartrate 25 mg Tablet 25 mg PO BID 30 Days Qty: 60 0RF Continued aspirin 81 mg Tablet,Chewable 81 mg PO DAILY cholecalciferol (vitamin D3) [Vitamin D3] 125 mcg (5,000 unit) Tablet 125 mcg PO DAILY sertraline 50 mg tablet 100 mg PO QHS cephalexin 250 mg capsule 250 mg PO .1 daily MoWedFri Patient Comments: MoWeFri, 1 daily cyanocobalamin (vitamin B-12) 1,000 mcg/mL solution 1,000 mcg IM QMONTH Patient Comments: FAMILY AND PT UNAWARE OF LAST INJECTION. WILL CALL IN TO GIVE LAST DOSE AT A LATER TIME methocarbamol 500 mg tablet 250 - 500 mg PO BID PRN PRN (Reason: muscle spasm) turmeric 1 cap PO DAILY Patient Comments: PT AND FAMILY UNAWARE OF STRENGTH krill oil 500 mg capsule 1,000 mg PO DAILY lidocaine 5 % adhesive patch,medicated See Rx Instructions .ROUTE .COMPLEX Rx Instructions: leave on most painful area for up to 12 hrs Discontinued metoprolol tartrate 50 mg tablet 50 mg PO BID lisinopril 30 mg tablet 30 mg PO DAILY Other Ambulatory Orders: Nuclear Stress Test - Chemical (Routine) Facility: [facility]– [place] Location: [facility] Ordered By: Dr. Dex Landaverde Referrals / Follow Up: Lawson Ramos DO [Primary Care Provider] - Lawson Ramos [facility] [[facility]] - Disposition Disposition (needs filled in before D/C Order can be placed): Home Health Service Charges/Coding Visit Charges Inpatient E&M: 69684 Disch Hosp >30min
--- NOTE | 2024-02-27 16:19 | CHAPLAIN ---
Type of Pastoral Visit _x__ Initial Visit ___ Follow-up Visit ___ On-call Visit ___ General Patient Visit ___ Spiritual Assessment ___ Family Conference ___ Bereavement ___ Rapid Response ___ Code Blue ___ Other (describe below) Pastoral Care Referral From _x__ Patient _x_ Family ___ Nurse ___ Physician ___ Hydrator Operator ___ Reference Assistant ___ Other (describe below) Sacrament/Intervention _x__ Active listening ___ Anointing ___ Hinduism ___ Bereavement ___ Communion _x__ Sienna exploration ___ ___ Life review _x__ Prayer ___ Reconciliation ___ Sacrament of Sick _x__ Supportive presence ___ Wedding ___ Other (describe below) Pastoral Comments patient is getting ready for a discharge yet today; spouse and daughter are with her in the room; daughter does some of the talking and explains the situation to this hydrographic engineer and then explains to her parents; both parents appear to have some limits to understanding the circumstances although both are pleasant and are active in the conversation; pt welcomes someone to talk with and for prayer to be said; family is active in a Denominational evangelical and invite spiritual care at this time
== END 2024-02-27 13:55 | disposition home health service (06) ==
LOC: ED 12:47 → PCU 13:10
PROVIDERS: Admitting Provider Hospitalist; Emergency Provider Emergency Medicine; PCP Student in an Organized Health Care Education/Training Program; Visit Provider Hospitalist
DX: R55 Syncope and collapse (principal); I11.0 Hypertensive heart disease with heart failure; I50.32 Chronic diastolic (congestive) heart failure; G30.1 Alzheimer's disease with late onset; F02.80 Dementia in other diseases classified elsewhere, unspecified severity, without behavioral disturbance, psychotic disturbance, mood disturbance, and anxiety; Z86.16 Personal history of COVID-19; R00.1 Bradycardia, unspecified; R42 Dizziness and giddiness; F39 Unspecified mood [affective] disorder; Z79.82 Long term (current) use of aspirin; Z79.899 Other long term (current) drug therapy; I08.1 Rheumatic disorders of both mitral and tricuspid valves
CPT/HCPCS: 36415; 70496; 70498; 71045; 80048; 81001; 83735; 84100; 84484; 85025; 85027; 93005; 93306; 96361; 96372; 96374; 96375; 96376; 97162; 97166; 99221; 99285; J7120; P9612; Q9967; A4216; G0378; J2405

== ENCOUNTER 2024-03-04 06:10 | Outpatient (CLI) | payer MEDICARE, OTHER, SELFPAY ==
--- NOTE | 2024-03-07 13:38 | STRESSREP ---
Stress Test Report Date: 03/04/2024 Procedure: Pharmacologic stress nuclear imaging study Indications: Abnormal echo Consent: Per the patient Procedure: The patient underwent pharmacologic (Regadenoson) evaluation with a peak heart rate of 87 beats per minute (63%predicted maximal heart rate) and a peak blood pressure of 170/84 mmHg. The baseline ECG demonstrated normal sinus rhythm. EKG during lexiscan infusion revealed no significant ischemic changes. EKG post infusion revealed no significant ischemic changes [There were no cardiac dysrhythmias pretest, during pharmacologic infusion, or recovery]. [There was no complaint of chest discomfort during pharmacologic infusion or recovery]. The examination was discontinued secondary to completion of protocol. Impression: 1. Lexiscan stress test test is negative for Lexiscan infusion induced EKG changes of ischemia. 2. Lexiscan stress test test is negative for Lexiscan infusion induced chest pain. 3. Results of the nuclear portion of the test is as below Myocardial perfusion imaging study: Technique: The patient was injected with 10.5 millicuries of technetium 99m Cardiolite and subsequently rest SPECT Cardiolite nuclear imaging was obtained in the horizontal long, vertical long, and short axis views. The patient underwent pharmacologic [Regadenoson 0.4mg] evaluation. Please see above for details. The patient was injected with 34.6 millicuries of technetium 99m Cardiolite and subsequently stress SPECT Cardiolite nuclear imaging was obtained in the horizontal long, vertical long, and short axis views. A gated Cardiolite study at peak stress was obtained. Interpretation: Rest and stress SPECT Cardiolite nuclear imaging status post realignment, normalization, and attenuation correction demonstrate no evidence of significant ischemia or infarction. Gated images reveal no significant regional wall motion abnormalities. The reported LVEF is 60%. Impression: 1. There is no evidence of significant ischemia or infarction. 2. Estimated ejection fraction is 60%. This note was generated with [employer]ation software. It may contain incorrect words, spelling, and punctuation that were not noted in checking the note before signing.
== END 2024-03-04 23:59 | disposition home or self-care (01) ==
PROVIDERS: PCP Student in an Organized Health Care Education/Training Program; Referring Provider Hospitalist; Visit Provider Hospitalist
DX: R93.1 Abnormal findings on diagnostic imaging of heart and coronary circulation (principal); R94.31 Abnormal electrocardiogram [ECG] [EKG]
CPT/HCPCS: 78452; 93017; A9500; A4216; J2785

== ENCOUNTER 2024-05-05 14:23 | Emergency (ER) | payer MEDICARE, OTHER, SELFPAY ==
[2024-05-05 14:24] VITALS: TEMP 35.8; BMI 25.5
[2024-05-05 14:28] VITALS: BP 148/72; PULSE 90; RESP 16; O2SAT 97
--- NOTE | 2024-05-05 14:35 | EKG12_ITS ---
Test Reason : SYNCOPE Blood Pressure : / mmHG Vent. Rate : 060 BPM Atrial Rate : 060 BPM P-R Int : 160 ms QRS Dur : 074 ms QT Int : 448 ms P-R-T Axes : 018 -21 050 degrees QTc Int : 448 ms Normal sinus rhythm Minimal voltage criteria for LVH, may be normal variant ( R in aVL ) Nonspecific T wave abnormality Abnormal ECG Confirmed by Michael Diaz [id number]), staff editor JIGNA SINGH ([id number]) on 05/06/2024 9:20:37 AM Referred By: Confirmed By:Michael Diaz
[2024-05-05 14:54] LABS: Absolute Lymphocyte Count 1.62 X10^3/uL (0.83-4.51); Absolute Neutrophil Count 3.8 X10^3/uL (2.0-7.7); Basophil# 0.07 X10^3/uL; Basophil% 1.1 % (0-1); Eosinophil# 0.15 X10^3/uL; Eosinophils% 2.4 % (0-5); Hematocrit 44.6 % (37-47); Hemoglobin 14.5 g/dL (12.0-15.0); Lymphocyte # 1.62 X10^3/ul (0.83-4.51); Lymphocyte % 26.3 % (19-41); Mean Corp Hgb Conc 32.5 g/dL (32-36); Mean Corpuscular Hgb 29.8 pg (27.0-32.0); Mean Corpuscular Volume 91.6 fL (81-99); Mean Platelet Vol. 10.3 fl (6.2-12.0); Monocyte# 0.51 X10^3/uL; Monocyte% 8.3 % (0-10); NRBC Flagged by Analyzer 0 % (0-5); Neutrophil # 3.78 X10^3/uL (2.7-7.7); Neutrophil % 61.3 % (47-70); Platelet Count 207 K/mm3 (150-450); RBC Distribution Width CV 13.5 % (11.6-14.6); RBC Distribution Width SD 45.8 fl (35.1-43.9); Red Blood Count 4.87 M/mm3 (4.2-5.4); White Blood Count 6.2 K/mm3 (4.4-11.0)
[2024-05-05 15:14] LABS: Anion Gap 6 (5-15); BUN 20 mg/dL (7-18); BUN/Creat Ratio 16.7 RATIO (10-20); Calcium,Total 8.3 mg/dL (8.5-10.1); Chloride 111 mmol/L (98-107); EST Glomerular Filtration Rate 45 mL/min (>60); Est Glom Filt Rate - Afr Amer 55 mL/min (>60); Estimated Creatinine Clearance 32.96 ml/min; Glucose 126 mg/dL (74-106); Sodium Level 139 mmol/L (136-145)
[2024-05-05 15:16] LABS: International Normalized Ratio 1.1; Prothrombin Time (Protime)PT. 13.9 SECONDS (11.7-14.9)
[2024-05-05 15:53] LABS: Partial Thromboplast Time 20.6 Seconds (24.1-36.2)
--- NOTE | 2024-05-05 16:11 | EX.ED.DYSGE1 ---
HPI History of Present Illness Chief Complaint: Syncope Detail of Chief Complaint: Syncopal episode Informant: patient, family and other Onset/Context/Timing Onset: Hours Context: Sudden Onset Timing: Intermittent Quality: Patient had syncope and collapse Location: Sitting garage with friends and family for 2 hours Current Severity: Gone Maximum Severity: Severe Worsened by: Unknown per patient and family Relieved by: Not applicable Associated Symptoms Associated Symptoms: Diaphoresis, nausea, bradycardia Narrative Narrative: Patient is an 83-year-old with history of ischemic colitis, stenosis of the right carotid artery, prior syncopal episodes and breast cancer who was seen in [facility]. She was been sitting for 2 hours. Apparently was muggy. She knew she was going to pass out. Reportedly she had a slow heart rate. She vomited and was diaphoretic and clammy. There was no abnormal seizure activity. Patient had recent surgery with removal of skin cancer anterior upper chest. She denies fever, chills night sweats. Denies headache, visual, ocular auditory symptoms. Denies chest pain, shortness of breath, pain with breathing. She denies abdominal pain, black or maroon stool. She denies paresthesia, anesthesia or motor weakness. Prior similar symptoms: Yes Recent Illness/Hospitalization: No PFSH PFS Medical History CHF (congestive heart failure) History of breast cancer Dementia Over 65 years old COVID-19 Rosacea Viral warts Lipoma Solar lentigo Cerebral microvascular disease Borderline abnormal TFTs Tongue lesion Inflamed seborrheic keratosis Late onset Alzheimer's dementia without behavioral disturbance Actinic skin damage Vitamin D deficiency Hx of breast cancer Hypertension Osteoporosis Breast cancer Essential hypertension Home Medications ?Medication ?Instructions ?Recorded ?Last Taken ?Type aspirin 81 mg chewable tablet 81 mg PO DAILY preventative 05/25/22 02/26/24 History cholecalciferol (vitamin D3) 125 125 mcg PO DAILY suppliment 05/25/22 02/26/24 History mcg (5,000 unit) tablet (Vitamin D3) sertraline 50 mg tablet 100 mg PO QHS depression 12/17/22 Unknown History cephalexin 250 mg capsule 250 mg PO .1 daily MoWedFri 02/26/24 02/26/24 History cyanocobalamin (vitamin B-12) 1,000 mcg IM QMONTH 02/26/24 Unknown History 1,000 mcg/mL injection solution krill oil 500 mg capsule 1,000 mg PO DAILY SUPPLEMENT 02/26/24 02/26/24 History lidocaine 5 % topical patch See Rx Instructions topical 02/26/24 Unknown History .COMPLEX methocarbamol 500 mg tablet 250 - 500 mg PO BID PRN PRN muscle 02/26/24 02/26/24 History spasm turmeric 1 cap PO DAILY SUPPLEMENT 02/26/24 02/26/24 History amlodipine 5 mg tablet 5 mg PO DAILY 30 days #30 tabs 02/27/24 Unknown Rx lisinopril 10 mg tablet 10 mg PO DAILY 30 days #30 tabs 02/27/24 Unknown Rx metoprolol tartrate 25 mg tablet 25 mg PO BID 30 days #60 tabs 02/27/24 Unknown Rx Allergy/AdvReac Type Severity Reaction Status Date / Time No Known Allergies Allergy Verified 02/26/24 10:26 Surgical History H/O mastectomy Social History household members: spouse housing: house Smoking Status: Never smoker alcohol intake: never substance use type: does not use ROS ROS ED Constitutional Constitutional ED: Denies chills, fever(s), subjective or sweats Eyes Eyes: Denies blurry vision, change in vision or diplopia ENT ENT ED: Denies ear pain, rhinorrhea or sore throat Cardiovascular Cardiovascular: Denies chest pain or palpitations Respiratory/Chest Respiratory/Chest: Denies cough, dyspnea or dyspnea on exertion Gastrointestinal Gastrointestinal: Reports nausea and vomiting; Denies abdominal pain Neurologic Neurologic: Denies headache(s) or paresthesias Hematologic/Lymphatic Hematologic/Lymphatic: Reports systems reviewed and no addt'l complaints, except as documented EXAM Physical Exam Const Vital Signs: 05/05/24 14:24 05/05/24 14:28 05/05/24 14:46 Temperature 96.5 F L Temperature Source Temporal Pulse Rate 90 Respiratory Rate 16 Blood Pressure 148/72 H Blood Pressure Mean 97 Pulse Ox 97 Oxygen Delivery Method Room Air Room Air Positive well nourished and well developed General Appearance ED: well developed and NAD; Negative for cyanotic, diaphoretic or pallor HEENT Reports moist mucous membranes HEENT Narrative: Head is atraumatic normocephalic. Ears normal. Nares patent. Posterior pharynx is normal. Eyes PERRL and EOMs intact bilaterally General Eye ED: Negative for pale conjunctiva or scleral icterus Neck no lymphadenopathy, supple and no JVD Neck Narrative: There are no carotid bruits. General: tenderness Chest Wall inspection of chest normal and palpation of chest normal Chest Narrative: Healing incision secondary to removal of skin cancer anterior superior chest. Wall Resp normal respiratory effort and clear to auscultation bilaterally Cardio regular rate, regular rhythm, S1 normal heart sound, S2 normal heart sound and no murmurs GI normal to inspection, nondistended, normoactive bowel sounds, non-tender, non-distended and no masses; Negative for hepatosplenomegaly Extremity normal to inspection Neuro No oriented x3, CN's II-XII intact bilaterally and no sensory deficits noted Neuro Narrative: Patient has problems with memory. Sensorium / Orientation: alert Motor Exam: strength 5/5 throughout Psych mental status grossly normal Skin no rashes or lesions noted and skin turgor normal General Skin Exam: Negative for jaundice or pallor MDM MDM MDM Narrative Medical decision making narrative: History and physical is consistent with vasovagal episode. Since she does appear pale CBC was obtained assess H&H. Nurse protocol orders were initiated. She was placed on the monitor to assess for dysrhythmia. Prior records were reviewed. Even though she had removal of skin cancer this past week there is no concern for PE. Lab Data Attestation: I reviewed the patient's lab results. Lab results narrative: CBC is normal. Coags are normal. BUN and creatinine are slightly elevated 20 and 1.20 with an estimated GFR of 16. Labs: Laboratory Results - last 24 hr 05/05/24 05/05/24 14:34 14:50 WBC 6.2 RBC 4.87 Hgb 14.5 Hct 44.6 MCV 91.6 MCH 29.8 MCHC 32.5 RDW Std Deviation 45.8 H RDW Coeff of Juan 13.5 Plt Count 207 MPV 10.3 Immature Gran % (Auto) 0.600 Neut % (Auto) 61.3 Lymph % (Auto) 26.3 [place] % (Auto) 8.3 Eos % (Auto) 2.4 Baso % (Auto) 1.1 H Absolute Neuts (auto) 3.8 Absolute Lymphs (auto) 1.62 Nucleated RBC % 0 PT 13.9 INR 1.1 APTT 20.6 L Sodium 139 Potassium 4.0 Chloride 111 H Carbon Dioxide 22.0 Anion Gap 6 BUN 20 H Creatinine 1.20 H Estim Creat Clear Calc 32.96 Est GFR (MDRD) Af Amer 55 L Est GFR (MDRD) Non-Af 45 L BUN/Creatinine Ratio 16.7 Glucose 126 H Calcium 8.3 L Discharge Plan Triage Chief Complaint: Syncope ED Provider: Pancho Cee Dx/Rx/DC Orders Clinical Impression: Syncope, vasovagal, Elevated blood pressure reading Instructions: ED Fainting, Vagal Reaction Prescriptions: No Action aspirin 81 mg Tablet,Chewable 81 mg PO DAILY cholecalciferol (vitamin D3) [Vitamin D3] 125 mcg (5,000 unit) Tablet 125 mcg PO DAILY sertraline 50 mg tablet 100 mg PO QHS cephalexin 250 mg capsule 250 mg PO .1 daily MoWedFri Patient Comments: MoWeFri, 1 daily cyanocobalamin (vitamin B-12) 1,000 mcg/mL solution 1,000 mcg IM QMONTH Patient Comments: FAMILY AND PT UNAWARE OF LAST INJECTION. WILL CALL IN TO GIVE LAST DOSE AT A LATER TIME methocarbamol 500 mg tablet 250 - 500 mg PO BID PRN PRN (Reason: muscle spasm) turmeric 1 cap PO DAILY Patient Comments: PT AND FAMILY UNAWARE OF STRENGTH krill oil 500 mg capsule 1,000 mg PO DAILY lidocaine 5 % adhesive patch,medicated See Rx Instructions .ROUTE .COMPLEX Rx Instructions: leave on most painful area for up to 12 hrs amlodipine 5 mg Tablet 5 mg PO DAILY 30 Days Qty: 30 0RF lisinopril 10 mg Tablet 10 mg PO DAILY 30 Days Qty: 30 0RF metoprolol tartrate 25 mg Tablet 25 mg PO BID 30 Days Qty: 60 0RF Primary Care Provider: Lawson Ramos Referrals: Lawson Ramos DO [Primary Care Provider] - As Needed Print Language: Lao Disposition Disposition: Home, Self Care
[2024-05-05 16:18] VITALS: BP 148/72; PULSE 82; RESP 18; TEMP 36.4; O2SAT 98
== END 2024-05-05 16:31 | disposition home or self-care (01) ==
PROVIDERS: Emergency Provider Emergency Medicine; PCP Student in an Organized Health Care Education/Training Program; Visit Provider Emergency Medicine
DX: R55 Syncope and collapse (principal); R03.0 Elevated blood-pressure reading, without diagnosis of hypertension; R00.1 Bradycardia, unspecified; C44.509 Unspecified malignant neoplasm of skin of other part of trunk; Z85.3 Personal history of malignant neoplasm of breast; Z86.16 Personal history of COVID-19; I10 Essential (primary) hypertension
CPT/HCPCS: 80048; 85025; 85610; 85730; 93005; 99284

== ENCOUNTER 2025-08-16 15:10 | Inpatient (IN) | payer MEDICARE, SELFPAY ==
[2025-08-16] VITALS (8 sets, daily range): BP systolic 166–205; BP diastolic 77–103; PULSE 68–93; RESP 15–18; TEMP 36.4–36.5; O2SAT 88–97; BMI 23.5
--- NOTE | 2025-08-16 15:25 | EX.ED.DYSGE1 ---
HPI History of Present Illness Chief Complaint: Fall Narrative Narrative: Patient is 85-year-old female past medical history of CHF, breast cancer, dementia, Alzheimer's, hypertension, osteoporosis who presented to the emergency department with a chief complaint of right hip pain. According to the daughter at bedside she was going in the house up 1 step and her foot caught on the step causing her to fall. States that she was able to catch her and break the majority of the fall however she still landed on her right hip causing her severe pain. She did not hit her head did not pass out and states that she does not have any pain in her else. According to the daughter at bedside she was given fentanyl prehospital. Patient was placed on nasal cannula and was on it in the emergency department when inquiring about this she is not normally on oxygen at home. They deny any blood thinning medications.She currently walks with a cane at baseline. [facility] Medical History CHF (congestive heart failure) History of breast cancer Dementia Over 65 years old COVID-19 Rosacea Viral warts Lipoma Solar lentigo Cerebral microvascular disease Borderline abnormal TFTs Tongue lesion Inflamed seborrheic keratosis Late onset Alzheimer's dementia without behavioral disturbance Actinic skin damage Vitamin D deficiency Hx of breast cancer Hypertension Osteoporosis Breast cancer Essential hypertension Home Medications ?Medication ?Instructions ?Recorded ?Last Taken ?Type cholecalciferol (vitamin D3) 125 125 mcg PO DAILY suppliment 05/25/22 02/26/24 History mcg (5,000 unit) tablet (Vitamin D3) cephalexin 250 mg capsule 250 mg PO .1 daily MoWedFri 02/26/24 02/26/24 History cyanocobalamin (vitamin B-12) 1,000 mcg IM QMONTH 02/26/24 Unknown History 1,000 mcg/mL injection solution krill oil 500 mg capsule 2,000 mg PO DAILY SUPPLEMENT 02/26/24 02/26/24 History methocarbamol 500 mg tablet 500 mg PO DAILY muscle spasm 02/26/24 02/26/24 History turmeric 1 cap PO DAILY SUPPLEMENT 02/26/24 02/26/24 History amlodipine 5 mg tablet 5 mg PO DAILY 30 days #30 tabs 02/27/24 Unknown Rx lisinopril 10 mg tablet 10 mg PO DAILY 30 days #30 tabs 02/27/24 Unknown Rx metoprolol succinate 25 mg 25 mg PO BID 08/16/25 Unknown History tablet,extended release 24 hr sertraline 100 mg tablet 80 mg PO DAILY 08/16/25 Unknown History Allergy/AdvReac Type Severity Reaction Status Date / Time No Known Allergies Allergy Verified 08/16/25 15:11 Surgical History H/O mastectomy Social History household members: spouse housing: house Smoking Status: Never smoker alcohol intake: never substance use type: does not use ROS ROS ED ROS Narrative Constitutional: Denies fevers, chills, headaches Eyes: Denies double vision Cardiovascular: Denies chest pain Respiratory: Denies shortness of breath Abdomen: Denies any abdominal pain nausea vomiting diarrhea : Denies urinary symptoms Neurological: Denies any numbness, weakness, tingling Musculoskeletal: Complains of right hip pain as noted above Skin: Denies any rashes or lesions EXAM Physical Exam Narrative Exam Narrative: General: Patient was lying in bed rest comfortably did not appear to be in any acute distress Head: Atraumatic, normocephalic Eyes: PERRL bilaterally, EOMI bilaterally, no conjunctival injection noted Neck: Soft, supple, trachea midline Cardiovascular: Regular rate and rhythm Respiratory: Clear to auscultation bilaterally Abdomen: Soft, nondistended, no tenderness to palpation Musculoskeletal: Patient has right hip pain with attempted logroll, although bony prominence palpated joints taken through full range of motion no pain elicited Extremities: +4/5 strength noted in the bilateral upper and the left lower extremity strength was limited in the right lower extremity secondary to pain, DP pulses +2/4 in the right lower extremity Neurological: Patient following commands knew that she was at [facility] sensation grossly intact Skin: Warm, dry, tact no rashes or lesions noted Const Vital Signs: 08/16/25 15:11 08/16/25 15:14 08/16/25 15:19 Temperature 97.7 F L Temperature Source Oral Pulse Rate 68 68 Respiratory Rate 15 16 Respiratory Effort Normal Respiratory Depth Normal Respiratory Pattern Normal Blood Pressure 189/77 H Blood Pressure Mean 114 Pulse Ox 88 97 Oxygen Delivery Method Room Air Nasal Cannula Nasal Cannula Oxygen Flow Rate (L/min) 2 2 MDM MDM MDM Narrative Medical decision making narrative: Patient is a 85-year-old female who presents to the emergency department the chief complaint of fall and right hip pain. On the differential diagnosis includes but not limited to femoral neck fracture, intertrochanteric hip fracture, subtrochanteric hip fracture. Once workup is obtained reviewed she will be reevaluated. Patient states that she does not need any pain medication at this point time. Patient's chest x-ray reviewed by myself by radiology showed no acute cardiopulmonary processes. Patient's x-ray of her pelvis reviewed by myself by radiology which shows a transverse right subcapital fracture of the proximal right femur with cephalic migration of the distal fracture fragment this also could be a femoral neck fracture once pulled out to length is difficult to tell when I reviewed this as well. Patient's femur x-ray reviewed by radiology which showed the fracture of the right hip as well. Patient is EKG reviewed showed sinus rhythm with a rate of 79 bpm MN interval 154. This was compared to EKG from May 05, 2024 as well which is largely unchanged overall there is multiple areas of artifact on today's EKG. I paged out to on-call orthopedics. Will discuss case with them and will also discuss case with hospitalist for admission. Patient's CBC reviewed which showed no evidence leukocytosis white blood count was 7.4, he was 14.5, platelet count 245. Patient odium is 141, potassium low at 3.7, creatinine is normal 1. Patient AST and ALT are 26 and 11 respectively. Patient's urinalysis pending. Did discuss case with on-call orthopedic surgeon Dr. Arredondo who is aware the patient. Spoke with the hospitalist Dr. Perez who accept patient for admission. Patient notified as well as family members at bedside all questions earns answered Lab Data Labs: Laboratory Results - last 24 hr 08/16/25 16:01 WBC 7.4 RBC 4.80 Hgb 14.5 Hct 42.4 MCV 88.3 MCH 30.2 MCHC 34.2 RDW Std Deviation 42.9 RDW Coeff of Juan 13.1 Plt Count 245 MPV 10.6 Immature Gran % (Auto) 1.400 H Neut % (Auto) 59.7 Lymph % (Auto) 28.7 [place] % (Auto) 7.0 Eos % (Auto) 2.3 Baso % (Auto) 0.9 Absolute Neuts (auto) 4.4 Absolute Lymphs (auto) 2.12 Nucleated RBC % 0 Sodium 141 Potassium 3.7 Chloride 105 Carbon Dioxide 25.3 Anion Gap 11 BUN 22 H Creatinine 1.00 Estim Creat Clear Calc 34.87 L Est GFR (MDRD) Non-Af 55 L BUN/Creatinine Ratio 22.2 H Glucose 112 H Calcium 9.2 Total Bilirubin 0.37 AST 26 ALT 11 Alkaline Phosphatase 98 Total Protein 7.0 Albumin 3.9 Globulin 3.1 Albumin/Globulin Ratio 1.3 Radiography Diagnostic Testing: Clinical Impression(s) from Imaging Studies Chest X-Ray 08/16/25 15:35 IMPRESSION: Stable examination. No acute abnormality is seen. Reading Location: [id number] Femur X-Ray 08/16/25 15:35 IMPRESSION: Transverse right subcapital fracture of the proximal right femur with cephalic migration of the distal fracture fragment. Reading Location: [id number] Pelvis X-Ray 08/16/25 15:35 IMPRESSION: Transverse right subcapital fracture of the proximal right femur with cephalic migration of the distal fracture fragment. Reading Location: [id number] Discharge Plan Dx/Rx/DC Orders Clinical Impression: Fall, Closed fracture of right hip, History of CHF (congestive heart failure), Osteoporosis Disposition Disposition: Acute Care Hospital [facility]
--- NOTE | 2025-08-16 15:29 | EKG12_ITS ---
Test Reason : FALL Blood Pressure : */* mmHG Vent. Rate : 79 BPM Atrial Rate : 79 BPM P-R Int : 154 ms QRS Dur : 74 ms QT Int : 402 ms P-R-T Axes : 72 -11 19 degrees QTcB Int : 460 ms Normal sinus rhythm Nonspecific ST and T wave abnormality Abnormal ECG Confirmed by SUNIL RIBEIRO, GENNA ([id number]), editor city LUBNA LEE ([id number]) on 08/18/2025 1:20:50 PM Referred By: Confirmed By: GENNA BARBER MD
--- NOTE | 2025-08-16 15:35 | RAD_ITS ---
PROCEDURE: CHEST 1 VIEW (PORTABLE) 08/16/2025 REASON FOR EXAM: FALL TECHNIQUE: Frontal view of the chest. COMPARISON: Prior study dated February 26, 2024. FINDINGS: Hardware: Surgical clips are seen in the right axilla. Heart: The heart is nonenlarged. Calcification of the aortic arch. Lungs: Mild degree of increased markings in both lungs more prominent on the right side. If the patient received prior radiation this may represent scarring especially in the right hemithorax. Bones: Degenerative changes are identified within the thoracic spine. RAD/Chest 1 View (Portable) IMPRESSION: Stable examination. No acute abnormality is seen. Reading Location: [id number]
--- NOTE | 2025-08-16 15:35 | RAD_ITS ---
PROCEDURE: FEMUR MIN 2 VIEWS 08/16/2025 REASON FOR EXAM: FALL TECHNIQUE: Procedure Code: RADFEM Modality: DX Procedure: FEMUR MIN 2 VIEWS Laterality: Right COMPARISON: None FINDINGS: Bones: Transverse fracture of the subcapital region of the proximal right femur with cephalic migration of the distal fracture fragment. Joints: Normal alignment. Mild degenerative changes. Soft tissues: Soft tissue swelling. Other: RAD/Femur Min 2 Views IMPRESSION: Transverse right subcapital fracture of the proximal right femur with cephalic migration of the distal fracture fragment. Reading Location: [id number]
--- NOTE | 2025-08-16 15:35 | RAD_ITS ---
PROCEDURE: PELVIS 1 OR 2 VIEWS 08/16/2025 REASON FOR EXAM: FALLL, HIP PAIN TECHNIQUE: Procedure Code: RADPEL Modality: DX Procedure: PELVIS 1 OR 2 VIEWS COMPARISON: None FINDINGS: Hardware: None Bones: There is evidence of a transverse subcapital fracture of the proximal right femur with superior migration of the distal fracture fragment. Joints: Mild degenerative changes. soft tissues: Mild soft tissue swelling identified. Other: RAD/Pelvis 1 or 2 Views IMPRESSION: Transverse right subcapital fracture of the proximal right femur with cephalic migration of the distal fracture fragment. Reading Location: [id number]
[2025-08-16] MEDS: 0.9% Normal Saline (1000mL) 1,000 ML 999 ML IV (15:57)
[2025-08-16 16:37] LABS: AST(SGOT) 26 U/L (<=31); Alanine Aminotransfer ALT/SGPT 11 U/L (<=34); Albumin, Serum 3.9 g/dL (3.4-4.8); Alkaline Phosphatase 98 U/L (35-104); Anion Gap 11 (5-15); BUN 22 mg/dL (4-19); BUN/Creat Ratio 22.2 RATIO (10-20); Calcium,Total 9.2 mg/dL (7.6-11.0); Carbon Dioxide 25.3 mmol/L (21.0-32.0); Chloride 105 mmol/L (98-108); Estimated Creatinine Clearance 34.87 ml/min (50-250); Globulin 3.1 g/dL (2.2-4.2); Glucose 112 mg/dL (70-99); Potassium 3.7 mmol/L (3.3-5.1)
[2025-08-16 16:50] LABS: Mucous, Urine 0 SEEN /hpf (<or=2+)
[2025-08-16 16:54] LABS: Hematocrit 42.4 % (37-47); Hemoglobin 14.5 g/dL (12.0-15.0); Immature Granulocytes Count 0.100 X10^3/uL (0.0-0.0); Mean Corp Hgb Conc 34.2 g/dL (32-36); Mean Corpuscular Volume 88.3 fL (81-99); Mean Platelet Vol. 10.6 fl (6.2-12.0); NRBC Flagged by Analyzer 0 % (0-5); Platelet Count 245 K/mm3 (150-450); RBC Distribution Width CV 13.1 % (11.6-14.6); RBC Distribution Width SD 42.9 fl (35.1-43.9); Red Blood Count 4.80 M/mm3 (4.2-5.4); White Blood Count 7.4 K/mm3 (4.4-11.0)
--- NOTE | 2025-08-16 17:09 | PCM.HP.STD ---
HPI - General General Date of Service: 08/16/25 Chief Complaint: Fall and right hip pain HPI Narrative GONZALO ALVARADO, is a 85 F who presents with a fall and right hip pain. This is an 85-year-old female with history of dementia who was training up step and then did not clear to step with her foot and then fell landing on her right side and had immediate pain in her right hip. Did not hit her head or lose consciousness. Presented to the emergency room where she had x-rays that showed transverse right subcapital fracture of the proximal right femur with cephalic migration of the distal fracture fragment. Dr. Arredondo, orthopedics was contacted and would be seeing the patient in consultation. Family is at bedside and they do endorse that the patient has limited performance status and does not get up and move around very much but when she does she generally uses a cane. [ ] [facility] Medical History CHF (congestive heart failure) History of breast cancer Dementia Over 65 years old COVID-19 Rosacea Viral warts Lipoma Solar lentigo Cerebral microvascular disease Borderline abnormal TFTs Tongue lesion Inflamed seborrheic keratosis Late onset Alzheimer's dementia without behavioral disturbance Actinic skin damage Vitamin D deficiency Hx of breast cancer Hypertension Osteoporosis Breast cancer Essential hypertension Home Medications ?Medication ?Instructions ?Recorded ?Last Taken ?Type cholecalciferol (vitamin D3) 125 125 mcg PO DAILY suppliment 05/25/22 02/26/24 History mcg (5,000 unit) tablet (Vitamin D3) cephalexin 250 mg capsule 250 mg PO MOWEFR UTI 02/26/24 02/26/24 History cyanocobalamin (vitamin B-12) 1,000 mcg IM QMONTH SUPPLEMENT 02/26/24 Unknown History 1,000 mcg/mL injection solution krill oil 500 mg capsule 2,000 mg PO DAILY SUPPLEMENT 02/26/24 02/26/24 History methocarbamol 500 mg tablet 500 mg PO DAILY muscle spasm 02/26/24 02/26/24 History turmeric 1 cap PO DAILY SUPPLEMENT 02/26/24 02/26/24 History amlodipine 5 mg tablet 5 mg PO DAILY HTN 30 days #30 tabs 02/27/24 Unknown Rx lisinopril 10 mg tablet 10 mg PO DAILY HTN 30 days #30 tabs 02/27/24 Unknown Rx metoprolol succinate 25 mg 25 mg PO BID HTN 08/16/25 Unknown History tablet,extended release 24 hr sertraline 100 mg tablet 80 mg PO DAILY MOOD 08/16/25 Unknown History Allergy/AdvReac Type Severity Reaction Status Date / Time No Known Allergies Allergy Verified 08/16/25 15:11 Surgical History H/O mastectomy Social History household members: spouse housing: house Smoking Status: Never smoker alcohol intake: never substance use type: does not use ROS ROS Narrative Have been feeling well as of late. All review of systems were negative except as mentioned above in the history of present illness and the other review of systems. Vital Signs Vital Signs Vital Signs: 08/16/25 15:11 08/16/25 15:14 08/16/25 15:19 Temperature 36.5 C L Temperature Source Oral Pulse Rate 68 68 Respiratory Rate 15 16 Respiratory Effort Normal Respiratory Depth Normal Respiratory Pattern Normal Blood Pressure 189/77 H Blood Pressure Mean 114 Pulse Ox 88 97 Oxygen Delivery Method Room Air Nasal Cannula Nasal Cannula Oxygen Flow Rate (L/min) 2 2 Weight Weight: 62.2 kg Body Mass Index (BMI) 23.5 Physical Exam Const alert and no apparent distress Constitutional Narrative: No respiratory distress. No conversational dyspnea. HEENT normocephalic and head/scalp atraumatic Resp normal respiratory effort, no retractions, no use of accessory muscles and clear to auscultation bilaterally Cardio regular rate, regular rhythm, S1 normal heart sound and S2 normal heart sound GI normal to inspection, nondistended, normoactive bowel sounds, soft to palpation, non-tender and non-distended Extremity Extremity Narrative: Shortened right lower extremity versus her left. Intact dorsalis pedal pulses bilaterally. No lower extremity edema. Skin Skin Narrative: No rashes or bruising. Neuro moves all extremities Sensorium / Orientation: awake and alert Psych affect normal Results Lab / Micro Data Attestation: I reviewed the patient's lab results. 08/16/25 16:01 08/16/25 16:01 Labs: Laboratory Results - last 24 hr 08/16/25 16:01: WBC 7.4, RBC 4.80, Hgb 14.5, Hct 42.4, MCV 88.3, MCH 30.2, MCHC 34.2, RDW Std Deviation 42.9, RDW Coeff of Juan 13.1, Plt Count 245, MPV 10.6, Immature Gran % (Auto) 1.400 H, Neut % (Auto) 59.7, Lymph % (Auto) 28.7, [place] % (Auto) 7.0, Eos % (Auto) 2.3, Baso % (Auto) 0.9, Absolute Neuts (auto) 4.4, Absolute Lymphs (auto) 2.12, Nucleated RBC % 0, Sodium 141, Potassium 3.7, Chloride 105, Carbon Dioxide 25.3, Anion Gap 11, BUN 22 H, Creatinine 1.00, Estim Creat Clear Calc 34.87 L, Est GFR (MDRD) Non-Af 55 L, BUN/Creatinine Ratio 22.2 H, Glucose 112 H, Calcium 9.2, Total Bilirubin 0.37, AST 26, ALT 11, Alkaline Phosphatase 98, Total Protein 7.0, Albumin 3.9, Globulin 3.1, Albumin/Globulin Ratio 1.3 EKG Initial EKG: Attestation: I personally reviewed and interpreted this EKG as follows: Prior EKG tracings: available for review EKG Rhythm Intrepretation: Sinus Rhythm Imaging Radiology Impression Chest X-Ray 08/16/25 15:35 IMPRESSION: Stable examination. No acute abnormality is seen. Reading Location: [id number] Femur X-Ray 08/16/25 15:35 IMPRESSION: Transverse right subcapital fracture of the proximal right femur with cephalic migration of the distal fracture fragment. Reading Location: [facility] Pelvis X-Ray 08/16/25 15:35 IMPRESSION: Transverse right subcapital fracture of the proximal right femur with cephalic migration of the distal fracture fragment. Reading Location: [facility] Assessment & Plan Assessment/Plan (1) Closed fracture of right hip: PLAN: Status post mechanical fall Patient to be on bedrest. Pain control. Patient still with this significant pain. Discussed with the patient and her family that if they feel that her pain is not being adequately addressed with the medications that are ordered to notify them staff so that we can make modifications. Explained to them that we will be cautious so as to not overmedicate Dr. Arredodno of orthopedics [facility] risk factors show that patient is of average risk for serious complication, any complication, above average risk for pneumonia, cardiac complication, VTE, sepsis, UTI, renal failure, readmission and discharged to a nursing or rehab facility and . Despite that, these risks are not prohibitive and patient is medically optimized to proceed with surgery. Patient blood pressure though however is very elevated this time and will have as needed medications ordered. But I feel a lot of her hypertension is more trivial to her severe pain so we get that under better control that may also help with her blood pressure. Check a 25-hydroxy vitamin D level PLAN: Plan Hypertensive urgency Likely reactive due to her hip fracture. To treat the underlying pain but also have as needed medication including IV hydralazine available. Continue with her home medications including amlodipine and metoprolol succinate and lisinopril Mood disorder: Continue with sertraline VTE prophylaxis with SCDs CODE STATUS: Addressed with the patient and her family. Has been verify that she is DNR CCA. Case discussed with the patient's family at bedside. Charges/Coding Visit Charges Inpatient E&M: 74541 Init Hosp L2
[2025-08-16 18:08] LABS: Color, Urine Straw (Yellow); Glucose, Dipstick Normal (Normal); Ketone-Dipstick Negative (Negative); Leukocyte Esterase-Dipstick Negative /ul (Negative); Nitrite-Dipstick Negative (Negative); Occult Blood-Urine 10 /ul (Negative); Protein-Dipstick Negative (Negative); Specific Gravity, Urine 1.030 (1.002-1.030); Urine Bilirubin Dipstick Negative (Negative)
--- OUTSIDE RECORDS SUMMARY | 2025-08-16 18:31 | XMS RPT_ITS | CCD ---
Author Organization [facility] Care Team Providers Care Administrative Services Officer Name Role Phone Lawson Ramos DO Primary Care Provider Lawson Ramos Primary Care Provider Unavailab Dr. Den Hammond Emergency Provider Dr. Althea Colin Admit Provider Dr. Althea Colin Attending Provider Dr. Althea Colin Other Provider Dr. Jona Eddy Attending Provider Dr. Di Briceno Attending Provider Dr. Enrico Nevarez Attending Provider Lawson Ramos DO Primary Care Provider Lawson Ramos DO Primary Care Provider Lawson Ramos DO Primary Care Provider Dr. Lawson Ramos Primary Care Provider Dr. Aniya Malik Attending Provider Dr. Ezequiel Betancourt Emergency Provider Dr. Dex Landaverde Admit Provider [phone] Dr. Dex Landaverde Attending Provider Dr. Dex Landaverde Other Provider [phone] Dr. Aniya Malik Other Provider Lawson Ramos DO Primary Care Provider Dr. Dex Landaverde Referring Provider Dr. Kamini Hsieh Attending Provider Dex Landaverde Attending Unavailable MostDex harris Referring Unavailable Ramos, Lawson Primary Care Unavailable Ramos, Lawson Primary Care Unavailable Dex Landaverde Admitting Unavailable Dex Landaverde Attending Unavailable KingAniya nino Consulting Unavailable KingAniya nino Attending Unavailable Ramos, Lawson Primary Care Unavailable Kamini Hsieh Attending Unavailabl e Kamini Hsieh Attending Unavailabl e Dex Landaverde Referring Unavailable Ramos, Lawson Primary Care Unavailable MostDex harris Consulting Unavailable Mostkimberly, Dex Admitting Unavailable Dex Landaverde Attending Unavailable Ramos, Lawson Primary Care Unavailable Dex Landaverde Consulting Unavailable King, Aniya Consulting Unavailable Ramos, Lawson Primary Care Unavailable Pancho Cee Attending Unavailable Yovany COUNTER STITCHER.BALING PRESS OPERATOR, Sierra Collier Unavailable [facility] COUNTER STITCHER.Jayashree COBURN Unavailable Noe COUNTER STITCHER.Bhavya COBURN Unavailable RAMOS, LAWSON L Primary Care Unavailable NOE, BHAVYA RICK Referring Unavailable NOE, BHAVYA RICK Referring Unavailable RAMOS, LAWSON L Primary Care Unavailable NOE, BHAVYA RICK Attending Unavailable RAMOS, LAWSON L Primary Care Unavailable RAMOS, LAWSON L Primary Care Unavailable RAMOS, LAWSON L Referring Unavailable RAMOS, LAWSON L Primary Care Unavailable RAMOS, LAWSON L Attending Unavailable RAMOS, LAWSON L Primary Care Unavailable RAMOS, LAWSON L Primary Care Unavailable NOE, BHAVYA RICK Attending Unavailable RAMOS, LAWSON L Primary Care Unavailable RAMOS, LAWSON L Referring Unavailable RAMOS, LAWSON L Primary Care Unavailable Medications Current Medications Medication Drug Class(es) Dates Sig (Normalized) Sig (Original) [id number] 200 actuat albuterol 0.09 mg/actuat metered dose inhaler (20 sources) beta2-Adrenergic Agonist Start: 06-28-2020 take 2 puff(s) by inhalation every four hours as needed for wheezing albuterol HFA (VENTOLIN HFA) 90 mcg/actuation inhaler Indications: Pneumonia of both lower lobes due to infectious organism Inhale 2 Puffs as instructed every 4 hours as needed for Wheezing/Shortnes s of Breath. 18 g 1 06/28/2020 Active Comment on above: Inhale 2 Puffs as in structed every 4 hours as needed for Wheezing/Shortness of Breath. amLODIPine 5 mg oral tablet (20 sources) Dihydropyridine Calcium Channel Robbin Start: 02-27-2024 End: 12-15-2024 take 1 tablet by mouth once amLODIPine (NORVASC) 5 mg tablet Take 1 tablet by mouth every afternoon. 90 tablet 3 09/16/2024 Active aspirin 81 mg chewable tablet (4 sources) Platelet Aggregation Inhibitor, Nonsteroidal Anti-inflammatory Drug Start: 05-25-2022 take 81 mg by mouth once daily Aspirin Active 81 MG PO DAILY May 25, 2022 12:00am atorvastatin 40 mg oral tablet (20 sources) HMG-CoA Reductase Inhibitor Start: 05-28-2022 End: 12-17-2022 atorvastatin (LIPITOR) 40 mg tablet Take by mouth. 05/28/2022 Active Comment on above: Take by mouth. benzonatate 100 mg oral capsule (10 sources) Non-narcotic Antitussive Start: 03-29-2025 benzonatate 100 mg cap(s) (TESSALON PERLE) cephalexin 250 mg oral capsule (20 sources) Cephalosporin Antibacterial Start: 03-05-2025 take 1 capsule by mouth every week cephALEXin (KEFLEX) 250 mg capsule Indications: Recurrent UTI (urinary tract infection) , Prophylactic antibiotic Take 1 capsule by mouth 3 days per week: Saturday, Saturday, Saturday. 40 capsule 1 03/05/2025 Active Start: 02-26-2024 Cephalexin Act dominga 250 MG PO .1 daily MoWedFri February 26, 2024 12:00am Start: 02-26-2024 take 250 mg by mouth four times daily Cephalexin Active 250 MG PO 4 TIMES DAILY February 26, 2024 12:00am Start: 08-07-2023 End: 08-27-2024 take 1 capsule by mouth every week cephALEXin (KEFLEX) 250 mg capsule Indications: Recurrent UTI (urinary tract infection) , Prophylactic antibiotic Take 1 capsule by mouth 3 days per week: Saturday, Saturday, Saturday. 40 capsule 1 08/27/2024 Active Start: 01-22-2023 take 1 capsule by mo uth every week cephALEXin (KEFLEX) 250 mg capsule Indications: Recurrent UTI (urinary tract infection) , Prophylactic antibiotic Take 1 capsule by mouth 3 days per week: Saturday, Saturday, Saturday. 40 capsule 1 01/22/2023 Active Start: 06-21-2022 take 1 capsule by mo uth every week cephALEXin (KEFLEX) 250 mg capsule Indications: Recurrent UTI (urinary tract infection) , Prophylactic antibiotic Take 1 capsule by mouth 3 days per week: Saturday, Saturday, Saturday. 40 capsule 1 06/21/2022 Active Start: 06-13-2022 End: 07-13-2022 take 0.5 tablet by mouth once daily Cephalexin 250 mg tab Indications: Recurrent UTI Take 0.5 tablets by mouth once daily. 15 tablet 5 06/13/2022 06/21/2022 Discontinued Comment on above: Take 0.5 tablets by mouth once daily. Take 1 capsule by mo ut 3 days per week: Saturday, Saturday, Saturday. cholecalciferol 0.125 mg oral tablet (4 sources) Vitamin D Start: 022 take 1 tablet by mouth once daily Cholecalciferol (Vitamin D3) (Vitamin D3) 125 mcg (5,000 unit) Tablet Active 125 MCG PO DAILY May 25, 2022 12:00am dexamethasone phosphate 1 mg/ml ophthalmic solution (20 sources) Corticosteroid Start: take 1 drop(s) into the eye(s) two times weekly dexAMETHasone (DEXASOL) 0.1 % ophthalmic solution 1 Drop two times a week. Instill into ear canals, NOT EYES, for eczema of ear canals 5 mL 4 02/24/2024 Active Comment on above: 1 Drop two times a w [place]. Instill into ear canals, NOT EYES, for eczema of ear canals ergocalciferol 1.25 mg oral capsule (20 sources) Provitamin D2 Compound Start: 018 take 1 capsule by mouth every week ergocalciferol, vitamin D2, (DRISDOL) 50,000 unit capsule Indications: Vitamin D deficiency Take 1 capsule by mouth once each week. 12 capsule 3 08/05/2018 Active Comment on above: Take 1 capsule by mo ut once each week. krill oil 500 mg oral capsule (7 sources) Start: 024 take 1000 mg by mouth once daily Krill Oil Active 1000 MG PO DAILY February 26, 2024 12:00am Start: 05-25-2022 End: 05-28-2022 [id number] st (Krill Oil) [id number] mg Capsule Discontinued 1 CAP PO TWICE A DAY May 25, 2022 12:00am May 28, 2022 10:41am lidocaine 0.05 mg/mg medicated patch (20 sources) Antiarrhythmic, Amide Local Anesthetic Start: 02-26-2024 Lidocaine Active 0 TOPICAL .COMPLEX February 26, 2024 12:00am leave on most painful area for up to 12 hrs Start: 11-13-2023 lidocaine (ROBI ONPAS) 4 % patch Apply 1 application as directed once daily. 15 Patch 11/13/2023 Active Comment on above: Apply 1 application as directed once daily. lisinopril 10 mg oral tablet (20 sources) Angiotensin Converting Enzyme Inhibitor Start: 03-05-2025 End: 09-01-2025 take 1 tablet by mouth once daily lisinopril (ZESTRIL) 10 mg tablet Take 1 tablet by mouth once daily. 90 tablet 1 03/05/2025 09/01/2025 Active Start: 02-27-2024 End: 02-10-2025 take 1 tablet by mouth once daily lisinopril (ZESTRIL) 10 mg tablet Take 1 tablet by mouth once daily. 90 tablet 1 08/14/2024 02/10/2025 Active Start: 05-24-2021 End: 05-11-2024 take 1 tablet by mouth once daily lisinopril (ZESTRIL) 30 mg tablet Indications: Hypertension, essential Take 1 tablet by mouth once daily. 90 tablet 1 11/13/2023 03/10/2024 Discontinued Start: 07-07-2017 End: 07-08-2017 take 10 mg by mouth once daily Lisinopril Discontinued 10 MG PO DAILY July 07, 2017 12:00am July 08, 2017 10:46am Comment on above: Take 1 tablet by arun th once daily. methocarbamol 500 mg oral tablet (20 sources) Muscle Relaxant Start: End: methocarbamol (ROBAXIN) 500 mg tablet Take 1/2 to 1 tablet twice daily as needed for back pain, spasms 60 tablet 3 07/16/2025 Active Comment on above: Take 1/2 to 1 tablet twice daily as needed for back pain, spasms 24 hr metoprolol succinate 25 mg extended release oral tablet (20 sources) beta-Adrenergic Robbin Start: End: take 1 tablet by mouth twice daily metoprolol succinate ER (TOPROL XL) 25 mg 24 hr tablet Take 1 tablet by mouth two times a day. 180 tablet 3 09/16/2024 Active Start: 02-27-2024 take 25 mg by mouth twice jerald y Metoprolol Tartrate Active 25 MG PO TWICE A DAY 60 February 27, 2024 12:00am Start: 07-24-2021 End: 05-11-2024 take 1 tablet by mouth twice daily metoprolol tartrate, short acting, (LOPRESSOR) 50 mg tablet Indications: Hypertension, essential Take 1 tablet by mouth two times a day. 180 tablet 2 11/13/2023 Active Comment on above: Take 1 tablet by arun th twice daily. Take 1 tablet by arun th two times a day. metroNIDAZOLE 7.5 mg/ml topical cream (20 sources) Nitroimidazole Antimicrobial Start: 02-23-20 metroNIDAZOLE 0.75 % cream Apply to affected area twice daily. For face for rosacea 45 g 2 02/22/2023 Active Comment on above: Apply to affected ar ea twice daily. For face for rosacea sertraline 50 mg oral tablet (20 sources) Serotonin Reuptake Inhibitor Start: 11-13-19 End: 04-26-20 take 1 tablet by mouth once daily at bedtime sertraline (ZOLOFT) 50 mg tablet Indications: Anxiety as acute reaction to exceptional stress Take 1 tablet by mouth daily at bedtime. 90 tablet 1 04/26/2025 Active Start: 12-17-2022 take 100 mg by mouth at bedtim e Sertraline Active 100 MG PO AT BEDTIME December 17, 2022 2:11pm Start: 08-23-2021 End: 08-30-2023 take 50 mg by mouth at bedtime Sertraline Discontinued 50 MG PO AT BEDTIME May 25, 2022 12:00am December 17, 2022 2:12pm Start: 02-21-2021 End: 06-04-2022 take 1 tablet by mouth once daily at bedtime sertraline (ZOLOFT) 100 mg tablet Indications: Anxiety as acute reaction to exceptional stress Take 1 tablet by mouth daily at bedtime. 90 tablet 1 02/21/2021 06/04/2022 Discontinued Comment on above: Take 1 tablet by arun th daily at bedtime. TAKE 1 TABLET BY ARUN TH DAILY AT BEDTIME Turmeric extract (7 sources) Start: 02-26-2024 take 1 capsule by mouth once daily turmeric Active 1 CAP PO DAILY February 26, 2024 12:00am Start: 05-25-2022 End: 05-28-2022 take 400 mg by mouth once daily Turmeric Discontinued 400 MG PO DAILY May 25, 2022 12:00am May 28, 2022 10:41am vitamin b12 1 mg/ml injectable solution (20 sources) Vitamin B12 Start: 09-16-2024 End: 11-15-2024 inject 1 mL by intramuscular injection every other week cyanocobalamin 1,000 mcg/mL Inject 1 mL intramuscularly every 2 weeks. 30 mL 3 09/16/2024 Active Start: 02-26-2024 inject 1000 ug by in tramuscular injection every month Cyanocobalamin (Vitamin B-12) Active 1000 MCG IM EVERY MONTH February 26, 2024 12:00am Start: 08-30-2023 End: 06-08-2025 inject 1 mL by intramuscular injection every week, then inject 1 mL by intramuscular injection every other week, then inject 1 mL by intramuscular injection every month cyanocobalamin 1,000 mcg/mL Inject 1 mL intramuscularly one time a week for 30 days, THEN 1 mL every 2 weeks for 60 days, THEN 1 mL once every month. 30 mL 3 03/10/2024 09/16/2024 Discontinued Start: 08-30-2023 End: 08-30-2023 cyanocobalamin 1,000 mcg inj ection Comment on above: Inject 1 mL intramus cularly one time a week for 30 days, THEN 1 mL every 2 weeks for 60 days, THEN 1 mL once every month. Walker (ULTRA-LIGHT ROLLATOR) misc (20 sources) Start: 03-06-2024 Walker (ULTRA-LIGHT ROLLATOR) misc Indications: Osteoarthritis of spine with radiculopathy, lumbar region , Osteoarthritis of spine with radiculopathy, thoracic region , Chronic midline low back pain without sciatica 1 Device as directed. Dx: balance disorder, chronic back pain, gait disorder X-rays were taken of the Thoracic and Lumbar areas and showed degenerative/arthritic changes as well as scoliosis of lower thoracic and lumbar spine. dx chronic bilateral low back pain 1 Each 03/06/2024 Active Start: 03-06-2024 Walker (ULTRA- LIGHT ROLLATOR) [facility] [place] Indications: Osteoarthritis of spine with radiculopathy, lumbar region , Osteoarthritis of spine with radiculopathy, thoracic region , Chronic midline low back pain without sciatica 1 Device as directed. Dx: balance disorder, chronic back pain, gait disorder X-rays were taken of the Thoracic and Lumbar areas and showed degenerative/arthritic changes as well as scoliosis of lower thoracic and lumbar spine. dx chronic bilateral low back pain 1 Each 0 03/06/2024 Active Start: 02-24-2024 End: 03-06-2024 Walker (ULTRA-LIGHT ROLLATOR ) [facility] [place] Indications: Osteoarthritis of spine with radiculopathy, lumbar region , Osteoarthritis of spine with radiculopathy, thoracic region , Chronic midline low back pain without sciatica 1 Device as directed. Dx: balance disorder, chronic back pain, gait disorder 1 Each 0 02/24/2024 03/06/2024 Discontinued Start: 02-24-2024 Walker (ULTRA- LIGHT ROLLATOR) [facility] [place] Indications: Osteoarthritis of spine with radiculopathy, lumbar region , Osteoarthritis of spine with radiculopathy, thoracic region , Chronic midline low back pain without sciatica 1 Device as directed. Dx: balance disorder, chronic back pain, gait disorder 1 Each 0 02/24/2024 Active Comment on above: 1 Device as directed . Dx: balance disorder, chronic back pain, gait disorder Completed/Discontinued Medications Medication Drug Class(es) Dates Sig (Normalized) Sig (Original) amoxicillin 500 mg / clavulanate 125 mg oral tablet (20 sources) Penicillin-class Antibacterial Start: 05-28-2022 amoxicillin-clavu lanic acid (AUGMENTIN) 500-125 mg per tablet Take by mouth. 0 05/28/2022 Active Start: 05-28-2022 End: 02-26-2024 take 1 tablet by mouth twice daily Amoxicillin-Pot Clavulanate (Augmentin) 500-125 mg tablet Discontinued 1 TABLET PO TWICE A DAY 10 5 May 28, 2022 12:00am February 26, 2024 12:50pm Comment on above: Take by mouth. ascorbic acid 500 mg oral tablet (4 sources) Vitamin C Start: End: take 1 tablet by mouth once daily Ascorbic Acid (Vitamin C) (Vitamin C) 500 mg Tablet Discontinued 500 MG PO DAILY May 25, 2022 12:00am February 26, 2024 12:50pm ciprofloxacin 500 mg oral tablet (2 sources) Quinolone Antimicrobial Start: End: take 1 tablet by mouth twice daily ciprofloxacin HCl (CIPRO) 500 mg tablet Take 1 tablet by mouth two times a day for 7 days. 14 tablet 03/31/2025 04/07/2025 naproxen 500 mg oral tablet (1 source) Nonsteroidal Anti-inflammatory Drug Start: End: take 1 tablet by mouth twice daily at mealtime naproxen (NAPROSYN) 500 mg tablet Take 1 tablet by mouth two times a day with meals for 14 days. Take with food. 28 tablet 11/13/2023 11/27/2023 ondansetron 4 mg disintegrating oral tablet (5 sources) Serotonin-3 Receptor Antagonist Start: End: take 1 tablet by mouth every eight hours as needed ondansetron orally disintegrating (ZOFRAN ODT) 4 mg disintegrating tablet Take 1 tablet by mouth every 8 hours as needed for Nausea/Vomiting. 20 tablet 1 12/14/2019 06/04/2022 Discontinued Comment on above: Take 1 tablet by arun th every 8 hours as needed for Nausea/Vomiting. 24 hr oxybutynin chloride 5 mg extended release oral tablet (5 sources) Cholinergic Muscarinic Antagonist Start: End: take 1 tablet by mouth once daily oxybutynin XL (DITROPAN XL) 5 mg 24 hr tablet Indications: Overactive bladder Take 1 tablet by mouth once daily. For overactive bladder 90 tablet 3 02/21/2021 06/04/2022 Discontinued Comment on above: Take 1 tablet by arun th once daily. For overactive bladder traMADol hydrochloride 50 mg oral tablet (12 sources) Opioid Agonist Start: End: take 1 tablet by mouth every eight hours as needed for pain traMADol (ULTRAM) 50 mg tablet Indications: Osteoarthritis of spine with radiculopathy, lumbar region , Osteoarthritis of spine with radiculopathy, thoracic region , Chronic midline low back pain without sciatica Take 1 tablet by mouth every 8 hours as needed for pain for up to 30 days. 30 tablet 2 02/24/2024 03/25/2024 Comment on above: Take 1 tablet by arun th every 8 hours as needed for pain for up to 30 days. Problems Active Problems Problem Classification Problem Date Documented Da te Episodic/Chronic Anxiety disorders (20 sources) Anxiety; 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: [Generalized anxiety disorder] Onset: 02-21-2021 02-21-2021 Chronic Cancer of breast (20 sources) Malignant tumor of breast ; 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: [Malignant neoplasm of unspecified site of unspecified female breast] Onset: 02-27-2024 05-25-2022 Chronic Cardiac dysrhythmias (7 sources) Sinus bradycardia; 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: [Bradycardia, unspecified] Onset: 02-27-2024 02-26-2024 Episodic Chronic kidney disease (20 sources) Chronic kidney disease stage 3; 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: [CKD (chronic kidney disease) stage 3, GFR 30-59 ml/min] Onset: 08-21-2021 08-21-2021 Chronic Chronic kidney disease (2 sources) Chronic kidney disease; 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: [Chronic kidney disease, stage 3a (HCC)] Onset: 08-21-2021 Delirium, dementia, and amnestic and other cognitive disorders (20 sources) Primary degenerative dementia of the Alzheimer type, senile onset, uncomplicated; 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: [Alzheimer's disease with late onset] Onset: 12-08-2019 Resolved: 08-21-2021 12-08-2019 Chronic Disorders of lipid metabolism (20 sources) Dyslipidemia; 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: [Hyperlipidemia, unspecified] Onset: 02-21-2021 02-21-2021 Chronic Essential hypertension (20 sources) Essential hypertension; 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: [Essential (primary) hypertension] Onset: 10-13-2019 Chronic Fluid and electrolyte disorders (4 sources) Mild dehydration; 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: [Dehydration] 07-30-2021 Episodic Hypertension with complications and secondary hypertension (20 sources) Chronic kidney disease stage 3 due to hypertension; 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: [Hypertensive chronic kidney disease with stage 1 through stage 4 chronic kidney disease, or unspecified chronic kidney disease] Onset: 08-21-2021 08-21-2021 Chronic Mood disorders (7 sources) Moderate recurrent major depression; 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: [Major depressive disorder, recurrent, moderate] Onset: 04-26-2025 04-26-2025 Chronic Nausea and vomiting (5 sources) Nausea and vomiting; 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: [Nausea with vomiting, unspecified] Episodic Nutritional deficiencies (20 sources) Vitamin D deficiency; 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: [Vitamin D deficiency, unspecified] Onset: 05-30-2012 05-30-2012 Chronic Occlusion or stenosis of precerebral arteries (5 sources) Right carotid artery stenosis; 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: [Occlusion and stenosis of right carotid artery] Chronic Osteoporosis (20 sources) Osteoporosis; 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: [Age-related osteoporosis without current pathological fracture] Onset: 06-16-2013 06-16-2013 Chronic Other aftercare (3 sources) Antibiotic prophylaxis indicated; 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: [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] Episodic Other and ill-defined cerebrovascular disease (20 sources) Small vessel cerebrovascular disease; 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: [Other cerebrovascular disease] Onset: 12-08-2019 12-08-2019 Chronic Other diseases of bladder and urethra (20 sources) Overactive bladder; 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: [Overactive bladder] Onset: 02-21-2021 02-21-2021 Chronic Other gastrointestinal disorders (1 source) Disorder of colon; 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: [Disease of intestine, unspecified] Episodic Other gastrointestinal disorders (1 source) Loose stool; 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: [Other fecal abnormalities] Episodic Other gastrointestinal disorders (2 sources) Oropharyngeal dysphagia; 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: [Dysphagia, oropharyngeal phase] 03-29-2025 Episodic Other inflammatory condition of skin (20 sources) Rosacea; 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: [Rosacea, unspecified] Onset: 12-14-2008 12-14-2008 Chronic Other lower respiratory disease (2 sources) Radiologic infiltrate of lung ; 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: [Other nonspecific abnormal finding of lung field] Episodic Other lower respiratory disease (2 sources) Dry cough; 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: [Nonproductive cough] 03-29-2025 Episodic Other nutritional; endocrine; and metabolic disorders (2 sources) Decrease in appetite; 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: [Anorexia] 03-29-2025 Episodic Other nutritional; endocrine; and metabolic disorders (2 sources) Weight decreased; 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: [Abnormal weight loss] 03-29-2025 Episodic Other skin disorders (4 sources) Mass of thoracic structure; 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: [Localized swelling, mass and lump, trunk] Episodic Lily-; endo-; and myocarditis; cardiomyopathy (except that caused by tuberculosis or sexually transmitted disease) (20 sources) Primary cardiomyopathy; 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: [Other cardiomyopathies] Onset: 09-03-2005 Resolved: 03-29-2025 09-03-2005 Chronic Peripheral and visceral atherosclerosis (20 sources) Ischemic colitis; 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: [Vascular disorder of intestine, unspecified] Onset: 02-27-2024 Chronic Spondylosis; intervertebral disc disorders; other back problems (20 sources) Thoracic arthritis; 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: [Other spondylosis with radiculopathy, thoracic region] Onset: 02-27-2024 02-27-2024 Chronic Syncope (14 sources) Near syncope; 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: [Syncope and collapse] Onset: 02-27-2024 Episodic Unclassified (1 source) Nonproductive cough; 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: [Nonproductive cough] Onset: 03-29-2025 Past or Other Problems Problem Classification Problem Date Documented Da te Episodic/Chronic Allergic reactions (20 sources) Solar degeneration; 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: [Other skin changes due to chronic exposure to nonionizing radiation] Onset: 9 Resolved: 3 10-17-2011 Episodic Cancer of breast (20 sources) History of malignant neoplasm of breast; 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: [Personal history of malignant neoplasm of breast] Onset: 5 08-21-2021 Episodic Complications of surgical procedures or medical care (20 sources) Postoperative wound infection; 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: [Infection following a procedure, other surgical site, initial encounter] Onset: 1 Resolved: 1 08-21-2021 Episodic Conditions associated with dizziness or vertigo (20 sources) Dizziness; 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: [Dizziness and giddiness] Onset: 0 12-08-2019 Episodic Diabetes mellitus without complication (20 sources) Hyperglycemia; 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: [Hyperglycemia, unspecified] Onset: 3 02-25-2023 Episodic Diseases of mouth; excluding dental (20 sources) Geographic tongue; 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: [Geographic tongue] Onset: 0 06-21-2010 Episodic Genitourinary symptoms and ill-defined conditions (2 sources) History of recurrent urinary tract infection; 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: [Personal history of urinary (tract) infections] Onset: 5 03-29-2025 Episodic Immunizations and screening for infectious disease (20 sources) Patient encounter status; 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: [Encounter for immunization] Onset: 6 Resolved: 1 Episodic Malaise and fatigue (20 sources) Fatigue; 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: [Other fatigue] Onset: 2 Episodic Neoplasms of unspecified nature or uncertain behavior (20 sources) Neoplasm of uncertain behavior of skin; 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: [Neoplasm of uncertain behavior of skin] Onset: 0 06-20-2010 Episodic Nutritional deficiencies (20 sources) Cobalamin deficiency; 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: [Deficiency of other specified B group vitamins] Onset: 3 08-30-2023 Episodic Other and unspecified benign neoplasm (20 sources) Lipoma (clinical); 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, unspecified] Onset: 0 Resolved: 1 08-21-2021 Episodic Other and unspecified benign neoplasm (20 sources) Angiolipoma; 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, unspecified] Onset: 0 Resolved: 1 08-21-2021 Episodic Other ear and sense organ disorders (20 sources) Chondrodermatitis nodularis helicis; 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: [Unspecified perichondritis of external ear, unspecified ear] Onset: 1 11-12-2010 Episodic Other gastrointestinal disorders (1 source) Dysphagia, oropharyngeal phase; 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: [Oropharyngeal dysphagia] Onset: 5 Episodic Other injuries and conditions due to external causes (20 sources) Open wound; 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: [Other injury of unspecified body region, initial encounter] Onset: 1 Resolved: 1 08-21-2021 Episodic Other nervous system disorders (20 sources) Impairment of balance; 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: [Other abnormalities of gait and mobility] Onset: 3 Episodic Other nutritional; endocrine; and metabolic disorders (1 source) Anorexia; 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: [Poor appetite] Onset: 5 Episodic Other nutritional; endocrine; and metabolic disorders (1 source) Abnormal weight loss; 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: [Weight loss] Onset: 5 Episodic Other screening for suspected conditions (not mental disorders or infectious disease) (20 sources) Thyroid function tests abnormal; 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: [Abnormal results of thyroid function studies] Onset: 0 12-08-2019 Episodic Other skin disorders (20 sources) Seborrheic keratosis; 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: [Other seborrheic keratosis] Onset: 9 12-14-2008 Episodic Other skin disorders (20 sources) Actinic keratosis; 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: [Actinic keratosis] Onset: 0 06-21-2010 Episodic Other skin disorders (20 sources) Scar conditions and fibrosis of skin; 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: [Scar conditions and fibrosis of skin] Onset: 1 12-02-2010 Episodic Other skin disorders (20 sources) Solar lentigo; 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: [Other melanin hyperpigmentation] Onset: 1 10-17-2011 Episodic Other skin disorders (20 sources) Changes in skin texture; 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: [Other skin changes] Onset: 3 01-26-2013 Episodic Other skin disorders (20 sources) Inflamed seborrheic keratosis; 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: [Inflamed seborrheic keratosis] Onset: 9 Resolved: 1 10-21-2012 Episodic Other skin disorders (20 sources) Disorder of skin pigmentation; 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: [Disorder of pigmentation, unspecified] Onset: 9 Resolved: 2 10-21-2012 Episodic Residual codes; unclassified (20 sources) Forgetful; 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: [Other general symptoms and signs] Onset: 9 10-13-2019 Episodic Residual codes; unclassified (20 sources) Estrogen receptor positive tumor; 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: [Estrogen receptor positive status [ER+]] Onset: 0 Resolved: 1 08-21-2021 Episodic Secondary malignancies (20 sources) 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; 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: [Secondary and unspecified malignant neoplasm of axilla and upper limb lymph nodes] Onset: 6 Resolved: 1 08-21-2021 Chronic Skin and subcutaneous tissue infections (20 sources) Pyoderma; 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: [Pyoderma] Onset: 1 Resolved: 1 08-21-2021 Episodic Spondylosis; intervertebral disc disorders; other back problems (20 sources) Chronic low back pain; 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: [Chronic midline low back pain without sciatica] Onset: 4 02-27-2024 Episodic Unclassified (4 sources) Age more than 65 years; 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: [Over 65 years old] 05-25-2022 Urinary tract infections (20 sources) Recurrent urinary tract infection; 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: [Urinary tract infection, site not specified] Onset: 4 Episodic Viral infection (20 sources) Disease caused by 2019-nCoV; 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: [COVID-19] Onset: 9 Resolved: 1 05-25-2022 Episodic Results Test Name Value Interpretation Reference Range Facility [facility] 06-26-2025 C[facility] Tele[facility] MONTSERRAT WEBB ([id number]) 1940 F Date Time Provider Department 06/26/25 [facility] During your visit today, we recorded the following information about you: Suzie Baxter, RN 06/26/2025 10:11 AM Signed Patient's Daughter Mallorie calls and states that patient has been more fatigued and tired than usual. Mallorie thought that patient may have a UTI so she had brought a urine sample in yesterday (06/27/2025). Urine Culture is still pending currently. Latest Ref Rng 06/25/2025 Color Yellow Yellow Clarity Clear Clear Glucose, Urine Negative Negative Bilirubin, Urine Negative Negative Ketones, Urine Negative Negative Specific [place], Ur 1.005 - 1.030 1.014 Hemoglobin/Blood,Ur Negative Negative pH, Urine 5.0 - 8.0 6.0 Protein, Urine Negative Negative Urobilinogen 0.2-1.0 EU/dL 0.2 EU/dL Nitrites Negative Negative Leukest Negative Negative WBC, Urine 0-5 /HPF 0-5 /HPF RBC, Urine 0-2 /HPF 0-2 /HPF Bacteria Negative /HPF Negative Epithelial Cells /HPF Moderate Hyaline Cast 0 /LPF 1-3 /LPF ! Please review and advise, BUZZ Torres Alyson Taylor, APRN.ALMAS 06/28/2025 9:37 AM Signed UA and urine culture show no UTI or infection. I would recommend making office visit appointment to address her symptoms. Thank you, Sierra Pedroza APRN.Suzie Del Cid RN 06/28/2025 11:42 AM Signed Patient's daughter notified of results and provider's instructions. Patient's daughter verbalizes understanding. Suzie Baxter RN Allergies As of Date: 06/26/2025 (No Known Allergies) Date Reviewed: 04/26/2025 Reviewed by: Diana Robbins MA - Fully Assessed Reason for Visit: Patient Update [1234] Results [95] Prescriptions as of 06/28/2025 - sertraline (ZOLOFT) 50 mg tablet Take 1 tablet by mouth daily at bedtime. - lisinopril (ZESTRIL) 10 mg tablet Take 1 tablet by mouth once daily. - cephALEXin (KEFLEX) 250 mg capsule Take 1 capsule by mouth 3 days per week: Saturday, Saturday, Saturday. - amLODIPine (NORVASC) 5 mg tablet Take 1 tablet by mouth every afternoon. - methocarbamol (ROBAXIN) 500 mg tablet Take 1/2 to 1 tablet twice daily as needed for back pain, spasms - metoprolol succinate ER (TOPROL XL) 25 mg 24 hr tablet Take 1 tablet by mouth two times a day. - cyanocobalamin 1,000 mcg/mL Inject 1 mL intramuscularly every 2 weeks. - Walker (ULTRA-LIGHT ROLLATOR) misc 1 Device as directed. Dx: balance disorder, chronic back pain, gait disorder X-rays were taken of the Thoracic and Lumbar areas and showed degenerative/arthriti c changes as well as scoliosis of lower thoracic and lumbar spine. dx chronic bilateral low back pain - dexAMETHasone (DEXASOL) 0.1 % ophthalmic solution 1 Drop two times a week. Instill into ear canals, NOT EYES, for eczema of ear canals - metoprolol tartrate, short acting, (LOPRESSOR) 50 mg tablet Take 1 tablet by mouth two times a day. - lidocaine (SALONPAS) 4 % patch Apply 1 application as directed once daily. - metroNIDAZOLE 0.75 % cream Apply to affected area twice daily. For face for rosacea - atorvastatin (LIPITOR) 40 mg tablet Take by mouth. - albuterol HFA (VENTOLIN HFA) 90 mcg/actuation inhaler Inhale 2 Puffs as instructed every 4 hours as needed for Wheezing/Shortness of Breath. - ergocalciferol, vitamin D2, (DRISDOL) 50,000 unit capsule Take 1 capsule by mouth once each week. 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] 09/03/2005 03/29/2025 History of breast cancer [Z85.3] 11/01/2005 Fitting and adjustment of vascular catheter [Z4*02/08/2006 08/21/2021 Secondary and unspecified malignant neoplasm of*05/30/2006 08/21/2021 ROSACEA [L71.9] 12/14/2008 SEBORRHEIC KERATOSIS NOS [L82.1] 12/14/2008 Inflamed seborrheic keratosis [L82.0] 12/14/2008 10/21/2012 Viral warts, unspecified [B07.9] 12/14/2008 08/21/2021 SOLAR LENTIGENES///DYSCHROM IA OTHER [L81.9] 12/14/2008 10/21/2012 ACTINIC DAMAGE///CHR SOLAR SKIN DAMAGE NOS [L57*12/14/2008 01/26/2013 ER+ (estrogen receptor positive status) [Z17.0] 05/02/2010 08/21/2021 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 [D*06/20/2010 Actinic Keratosis (Premalignant AK) [L57.0] 06/21/2010 Tongue, Geographic [K14.1] 06/21/2010 Oral Submucosal Fibrosis/Tongue [K13.5] 06/21/2010 Lipoma: L forearm [D17.9] 06/21/2010 08/21/2021 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 Normal [facility] Bacteria Ur Culton Bacteria identified Cx Nom (U) ORGANISM ID: 1 10,000 -<50,000 CFU/ml Normal urogenital trinidad Normal [facility] Comment on above: Performed By: #### 6 30-4 ####[facility] LABCLIA [id number] [place] [address] [place] Urinalysis complete panel (U )on 06-25-2025 Bacteria LM.HPF (Urine sed) [#/Area] Negative Normal Negative [facility] Comment on above: Order Comment: Speci men Type: URINE SPECIMENOrdering Facility: [facility] Address: [address] [place] [address] Performed By: #### 2 4356-8 ####[facility] LABCLIA [id number] [address] [address] [place] Bilirubin Ql (U) Negative Normal Negative [facility] Comment on above: Order Comment: Speci men Type: URINE SPECIMENOrdering Facility: [facility] Address: [address] [place] [address] Performed By: #### 2 4356-8 ####[facility] LABCLIA [id number] [address] [address] [place] Clarity (Unsp spec) Clear Normal Clear [facility] Comment on above: Order Comment: Speci men Type: URINE SPECIMENOrdering Facility: [facility] Address: [address] [place] [address] Performed By: #### 2 4356-8 ####[facility] LABCLIA [id number] [place] [address] [place] Color (U) Yellow Normal Yellow [facility] Comment on above: Order Comment: Speci men Type: URINE SPECIMENOrdering Facility: [facility] Address: [address] [place] [address] Performed By: #### 2 4356-8 ####[facility] LABCLIA [id number] [place] [address] [place] Epithelial cells LM.HPF (Urine sed) [#/Area] Moderate Normal [facility] Comment on above: Order Comment: Speci men Type: URINE SPECIMENOrdering Facility: [facility] Address: [address] [place] [address] Performed By: #### 2 4356-8 ####[facility] LABCLIA [id number] [place] [address] [place] Glucose Test strip (U) [Mass/Vol] Negative Normal Negative [facility] Comment on above: Order Comment: Speci men Type: URINE SPECIMENOrdering Facility: [facility] Address: [address] [place] [address] Performed By: #### 2 4356-8 ####[facility] LABCLIA [id number] [place] [id number] [place] Hemoglobin Ql (U) Negative Normal Negative [facility] Comment on above: Order Comment: Speci men Type: URINE SPECIMENOrdering Facility: [facility] Address: [address] [place] [address] Performed By: #### 2 4356-8 ####[facility] LABCLIA [id number] [address] [place] [address] [place] Hyaline casts (Urine sed) [#/Area] 1-3 /LPF Abnormal 0 /LPF [facility] Comment on above: Order Comment: Speci men Type: URINE SPECIMENOrdering Facility: [facility] Address: [address] [place] [address] Performed By: #### 2 4356-8 ####[facility] LABCLIA [id number] [address], [facility] [place] Ketones Ql (U) Negative Normal Negative [facility] Comment on above: Order Comment: Speci men Type: URINE SPECIMENOrdering Facility: [facility] Address: [address] [place] [address] Performed By: #### 2 4356-8 ####[facility] LABCLIA [id number] [place] [address] [place] Leukocyte esterase Test strip Ql (U) Negative Normal Negative [facility] Comment on above: Order Comment: Speci men Type: URINE SPECIMENOrdering Facility: [facility] Address: [address] [place] [address] Performed By: #### 2 4356-8 ####[facility] LABCLIA [id number] [place] [id number] [place] Nitrite Ql (U) Negative Normal Negative [facility] Comment on above: Order Comment: Speci men Type: URINE SPECIMENOrdering Facility: [facility] Address: [address] [place] [address] Performed By: #### 2 4356-8 ####[facility] LABCLIA [id number] [place] [address] [place] pH (U) 6.0 [pH] Normal 5.0-8.0 [facility] Comment on above: Order Comment: Speci men Type: URINE SPECIMENOrdering Facility: [facility] Address: [address] [place] [address] Performed By: #### 2 4356-8 ####[facility] LABIA [id number] [place] [address] [place] Protein (U) [Mass/Vol] Negative Normal Negative [facility] Comment on above: Order Comment: Speci men Type: URINE SPECIMENOrdering Facility: [facility] Address: [address] [place] [address] Performed By: #### 2 4356-8 ####[facility] LABIA [id number] [place] [address] [place] RBC LM.HPF (Urine sed) [#/Area] 0-2 /HPF Normal 0-2 /HPF [facility] Comment on above: Order Comment: Speci men Type: URINE SPECIMENOrdering Facility: [facility] Address: [address] [place] [address] Performed By: #### 2 4356-8 ####[facility] LABIA [id number] [place] [address] [place] Specific gravity (U) [Rel density] 1.014 Normal 1.005-1.030 [facility] Comment on above: Order Comment: Speci men Type: URINE SPECIMENOrdering Facility: [facility] Address: [address] [place] [address] Performed By: #### 2 4356-8 ####[facility] LABIA [id number] [place] [address] [place] Urobilinogen Ql (U) 0.2 EU/dL Normal 0.2-1.0 EU/dL [facility] Comment on above: Order Comment: Speci men Type: URINE SPECIMENOrdering Facility: [facility] Address: [address] [place] [address] Performed By: #### 2 4356-8 ####[facility] LABIA [id number] [place] [address] [place] WBC LM.HPF (Urine sed) [#/Area] 0-5 /HPF Normal 0-5 /HPF [facility] Comment on above: Order Comment: Speci men Type: URINE SPECIMENOrdering Facility: [facility] Address: [address] [place] [address] Performed By: #### 2 4356-8 ####[facility] LABCLIA [id number] ERMELINDADanette POWERSDESK [address] [facility] CNOVon 04-26-2025 CNOV Office Visit (FAMPWS ) MONTSERRAT WEBB ([id number]) 1940 F Date Time Provider Department 04/26/25 12:00 PM BHAVYA LIU [facility] During your visit today, we recorded the following information about you: Pulse Respiration Blood pressure Weight 68/minute 16/minute 122/62 60.8 kg Bhavya Liu APRN.BALING PRESS OPERATOR 04/26/2025 1:20 PM Signed This is a 84 year old female who presents today with: One month follow up from fatigue, UTI HISTORY OF PRESENT ILLNESS: Office visit with this provider 03/29, assessment and plan: ASSESSMENT/PLAN 1. Generalized weakness (R53.1) 2. Fatigue, unspecified type (R53.83) - Generalized weakness and fatigue noted, likely multifactorial due to current illness and decreased nutritional intake. - discussed decline related to being sick and advanced age -CBC, CMP, Urinalysis, Chest XR 3. Nonproductive cough (R05.8) - Persistent for 3 weeks, exacerbated by oral intake. - Lungs auscultated with mild wheezing on expiration. - Ordered chest X-ray to evaluate for potential underlying causes such as pneumonia - Prescribed Tessalon Perles, one capsule up to three times daily as needed for cough suppression. 4. Oropharyngeal dysphagia (R13.12) - Cough triggered by swallowing, more pronounced with fluids than solids. - Monitor for any signs of aspiration or worsening dysphagia. -Aspiration risk, daughters understand the same 5. Poor appetite (R63.0) - Significant decrease in oral intake, with early satiety reported. - Encourage small, frequent meals and adequate hydration. May supplement in boost or ensure 6. Hypertension, essential (I10) - Blood pressure elevated during visit, likely secondary to acute illness. - Recheck blood pressure once acute symptoms resolve, daughters do monitor at home 7. History of recurrent UTIs (Z87.440) - Ordered urinalysis to rule out current UTI as a contributing factor to fatigue and weakness. - Continue current prophylactic regimen; adjustments to be made based on urinalysis results. 8. Weight loss (R63.4) - Approximately 10 lbs weight loss since last visit per daughters, likely due to decreased oral intake and acute illness. - Monitor weight; expect stabilization and potential weight gain with resolution of illness and improved nutrition. Daughters say this was a rapid weight change. Todays visit Fatigue: - Increased fatigue today compared to the past few weeks - Had an active weekend from Saturday to Saturday. Chest Discomfort: - Occasional chest discomfort. - Occasional belching noted. Dysphagia: - Difficulty swallowing pills. Weight Loss: - Montserrat's weight was 133.4 lbs on 03/29; previously 146 lbs in September. - Appetite has improved recently. UTI: - Recent UTI; Catherines urine rechecked and was clear. - On prophylactic medication three times a week to prevent UTIs, daughter concerned if this medication needs adjusted or changed PAST MEDICAL HISTORY: PAST MEDICAL HISTORY Diagnosis Date Anxiety Benign essential hypertension Bunion CHF (congestive heart failure) (HCC) Chronic kidney disease, stage III (moderate) (HCC) Decreased GFR Diverticulosis of colon (without mention of hemorrhage) Dysuria Fatigue Internal hemorrhoids without mention of complication Low back pain Memory loss Mild cognitive impairment Neuralgia and neuritis Nevus, non-neoplastic Osteopenia Overactive bladder PMH - PAST MEDICAL HISTORY OF temporomandibular joint disorders PMH - PAST MEDICAL HISTORY OF 2003 breast cancer - with chemotherapy and right mastectomy Pneumonia, organism unspecified(486) Middle of February Raynaud's syndrome Seborrheic keratosis Secondary cardiomyopathy, unspecified Vitamin D deficiency PAST SURGICAL HISTORY Procedure Laterality Date COLONOSCOPY FLX DX W/COLLJ SPEC WHEN PFRMD 10/14/07 HYSTERECTOMY N/A 1983 Partial PAST SURGICAL HISTORY OF 1991 breast bx PAST SURGICAL HISTORY OF 2003 breast cancer right/chemotherapy PAST SURGICAL HISTORY OF May 2010 Port removed ALLERGIES Patient has no known allergies. MEDICATIONS Current Outpatient Medications Medication Sig sertraline (ZOLOFT) 50 mg tablet Take 1 tablet by mouth daily at bedtime. lisinopril (ZESTRIL) 10 mg tablet Take 1 tablet by mouth once daily. cephALEXin (KEFLEX) 250 mg capsule Take 1 capsule by mouth 3 days per week: Saturday, Saturday, Saturday. amLODIPine (NORVASC) 5 mg tablet Take 1 tablet by mouth every afternoon. methocarbamol (ROBAXIN) 500 mg tablet Take 1/2 to 1 tablet twice daily as needed for back pain, spasms metoprolol succinate ER (TOPROL XL) 25 mg 24 hr tablet Take 1 tablet by mouth two times a day. cyanocobalamin 1,000 mcg/mL Inject 1 mL intramuscularly every 2 weeks. Walker (ULTRA-LIGHT ROLLATOR) misc 1 Device as directed. Dx: balance disorder, chronic back pain, gait disorder X-rays we (more content not included)... Normal [facility] Bacteria Ur Culton 5 Bacteria identified Cx Nom (U) CULTURE, URINE: No growth (<1,000 CFU/ml) Normal [facility] Comment on above: Performed By: #### 6 30-4 ####[facility] LABIA [id number] [place] [address] [place] Urinalysis complete panel (U )on 04-08-2025 Bacteria LM.HPF (Urine sed) [#/Area] Negative Normal Negative [facility] Comment on above: Order Comment: Speci men Type: URINE SPECIMENOrdering Facility: [facility] Address: [address] [place] [address] Performed By: #### 2 4356-8 ####[facility] LABIA [id number] [place] [address] [place] Bilirubin Ql (U) Negative Normal Negative [facility] Comment on above: Order Comment: Speci men Type: URINE SPECIMENOrdering Facility: [facility] Address: [address] [place] [address] Performed By: #### 2 4356-8 ####[facility] LABCLIA [id number] [place] [address] [place] Clarity (Unsp spec) Clear Normal Clear [facility] Comment on above: Order Comment: Speci men Type: URINE SPECIMENOrdering Facility: [facility] Address: [address] [place] [address] Performed By: #### 2 4356-8 ####[facility] LABCLIA [id number] [place] [address] [place] Color (U) Yellow Normal Yellow [facility] Comment on above: Order Comment: Speci men Type: URINE SPECIMENOrdering Facility: [facility] Address: [address] [place] [address] Performed By: #### 2 4356-8 ####[facility] LABCLIA [id number] [place] [address] [place] Epithelial cells LM.HPF (Urine sed) [#/Area] Few Normal [facility] Comment on above: Order Comment: Speci men Type: URINE SPECIMENOrdering Facility: [facility] Address: [address] [place] [address] Performed By: #### 2 4356-8 ####[facility] LABCLIA [id number] [place] [address] [place] Glucose Test strip (U) [Mass/Vol] Negative Normal Negative [facility] Comment on above: Order Comment: Speci men Type: URINE SPECIMENOrdering Facility: [facility] Address: [address] [place] [address] Performed By: #### 2 4356-8 ####[facility] LABCLIA [id number] [place] [address] [place] Hemoglobin Ql (U) Negative Normal Negative [facility] Comment on above: Order Comment: Speci men Type: URINE SPECIMENOrdering Facility: [facility] Address: [address] [place] [address] Performed By: #### 2 4356-8 ####[facility] LABCLIA [id number] [address] [place] [address] [place] Hyaline casts (Urine sed) [#/Area] 0 /[LPF] Normal 0 /LPF [facility] Comment on above: Order Comment: Speci men Type: URINE SPECIMENOrdering Facility: [facility] Address: [address] [place] [address] Performed By: #### 2 4356-8 ####[facility] LABCLIA [id number] [address] [place] [address] [place] Ketones Ql (U) Negative Normal Negative [facility] Comment on above: Order Comment: Speci men Type: URINE SPECIMENOrdering Facility: [facility] Address: [address] [place] [address] Performed By: #### 2 4356-8 ####[facility] LABCLIA [id number] [address], [facility] [place] Leukocyte esterase Test strip Ql (U) Negative Normal Negative [facility] Comment on above: Order Comment: Speci men Type: URINE SPECIMENOrdering Facility: [facility] Address: [address] [place] [address] Performed By: #### 2 4356-8 ####[facility] LABCLIA [id number] [address] [place] [address] [place] Nitrite Ql (U) Negative Normal Negative [facility] Comment on above: Order Comment: Speci men Type: URINE SPECIMENOrdering Facility: [facility] Address: [address] [place], [place] [address] Performed By: #### 2 4356-8 ####[facility] LABCLIA [id number] [address] [place] [address] [place] pH (U) 5.5 [pH] Normal <8.5 [facility] Comment on above: Order Comment: Speci men Type: URINE SPECIMENOrdering Facility: [facility] Address: [address] [place] [address] Performed By: #### 2 4356-8 ####[facility] LABIA [id number] [place] [address] [place] Protein (U) [Mass/Vol] Negative Normal Negative [facility] Comment on above: Order Comment: Speci men Type: URINE SPECIMENOrdering Facility: [facility] Address: [address] [place] [address] Performed By: #### 2 4356-8 ####[facility] LABIA [id number] [place] [address] [place] RBC LM.HPF (Urine sed) [#/Area] 0-2 /HPF Normal 0-2 /HPF [facility] Comment on above: Order Comment: Speci men Type: URINE SPECIMENOrdering Facility: [facility] Address: [address] [place] [address] Performed By: #### 2 4356-8 ####[facility] [id number] [place] [address] [place] Specific gravity (U) [Rel density] 1.015 Normal 1.005-1.030 [facility] Comment on above: Order Comment: Speci men Type: URINE SPECIMENOrdering Facility: [facility] Address: [address] [place] [address] Performed By: #### 2 4356-8 ####[facility] [id number] [place] [address] [place] Urobilinogen Ql (U) 1.0 EU/dL Normal 0.2-1.0 EU/dL [facility] Comment on above: Order Comment: Speci men Type: URINE SPECIMENOrdering Facility: [facility] Address: [address] [id number] Performed By: #### 2 4356-8 ####[facility] [id number] [place] [id number] [place] WBC LM.HPF (Urine sed) [#/Area] 0-5 /HPF Normal 0-5 /HPF [facility] Comment on above: Order Comment: Speci men Type: URINE SPECIMENOrdering Facility: [facility] Address: [address] [id number] Performed By: #### 2 4356-8 ####[facility] LABIA [id number] [place] [id number] [facility] 04-06-2025 CNPN Telephone (FAMWS) MONTSERRAT WEBB ([id number]) 1940 F Date Time Provider Department 04/06/25 [facility] During your visit today, we recorded the following information about you: Suzie Baxter RN 04/06/2025 9:28 AM Signed Patient's daughter calls and states that patient has been on Cipro for UTI. Last day of Cipro is today. Daughter reports that patient continues to be extremely weak and that patient sleeps all the time. Patient would stay in bed 24-7 if she was allowed to. Family has been having issues getting patient to eat. Family is giving her protein shakes and are vigilant in sitting with patient to get her to eat and feeding patient. Daughter asking if this is the dementia/Alzheimer's getting worse? Daughter asking if orders can be placed to recheck urine? Asking if provider would give standing orders to have urine checked? Please review and advise, BUZZ Torres Jordan L, DO 04/07/2025 9:34 PM Signed Yes, please call daughter Mallorie and let her know I ordered standing urine culture and standing urinalysis orders to have urine checked at any time. This may be her dementia worsening as well- it is difficult to tell since she had a recent UTI as well. We an also consider evaluation through Neurologist locally if needed if symptoms continue to worsen DO Leidy Black Linda M, LPN 04/08/2025 8:51 AM Signed Spoke with daughter Mallorie gave information provided. She voices understanding. Allergies As of Date: 04/06/2025 (No Known Allergies) Date Reviewed: 03/29/2025 Reviewed by: Kitty Forbes LPN - Fully Assessed Reason for Visit: Patient Update [1234] Primary Visit Diagnosis:Recurrent UTI (urinary tract infection) [N39.0] Order(s):BACTERIAL CULTURE, URINE [SQURCUL] Order #: [id number] STANDING URINALYSIS, WITH MICROSCOPIC [SQUAWMIC] Order #: [id number] STANDING Prescriptions as of 04/08/2025 - lisinopril (ZESTRIL) 10 mg tablet Take 1 tablet by mouth once daily. - cephALEXin (KEFLEX) 250 mg capsule Take 1 capsule by mouth 3 days per week: Saturday, Saturday, Saturday. - amLODIPine (NORVASC) 5 mg tablet Take 1 tablet by mouth every afternoon. - methocarbamol (ROBAXIN) 500 mg tablet Take 1/2 to 1 tablet twice daily as needed for back pain, spasms - metoprolol succinate ER (TOPROL XL) 25 mg 24 hr tablet Take 1 tablet by mouth two times a day. - cyanocobalamin 1,000 mcg/mL Inject 1 mL intramuscularly every 2 weeks. - sertraline (ZOLOFT) 50 mg tablet Take 1 tablet by mouth daily at bedtime. - Walker (ULTRA-LIGHT ROLLATOR) misc 1 Device as directed. Dx: balance disorder, chronic back pain, gait disorder X-rays were taken of the Thoracic and Lumbar areas and showed degenerative/arthriti c changes as well as scoliosis of lower thoracic and lumbar spine. dx chronic bilateral low back pain - dexAMETHasone (DEXASOL) 0.1 % ophthalmic solution 1 Drop two times a week. Instill into ear canals, NOT EYES, for eczema of ear canals - metoprolol tartrate, short acting, (LOPRESSOR) 50 mg tablet Take 1 tablet by mouth two times a day. - lidocaine (SALONPAS) 4 % patch Apply 1 application as directed once daily. - metroNIDAZOLE 0.75 % cream Apply to affected area twice daily. For face for rosacea - atorvastatin (LIPITOR) 40 mg tablet Take by mouth. - albuterol HFA (VENTOLIN HFA) 90 mcg/actuation inhaler Inhale 2 Puffs as instructed every 4 hours as needed for Wheezing/Shortness of Breath. - ergocalciferol, vitamin D2, (DRISDOL) 50,000 unit capsule Take 1 capsule by mouth once each week. 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/30/2006 08/21/2021 ROSACEA [L71.9] 12/14/2008 SEBORRHEIC KERATOSIS NOS [L82.1] 12/14/2008 Inflamed seborrheic keratosis [L82.0] 12/14/2008 10/21/2012 Viral warts, unspecified [B07.9] 12/14/2008 08/21/2021 SOLAR LENTIGENES///DYSCHROM IA OTHER [L81.9] 12/14/2008 10/21/2012 ACTINIC DAMAGE///CHR SOLAR SKIN DAMAGE NOS [L57*12/14/2008 01/26/2013 ER+ (estrogen receptor positive status) [Z17.0] 05/02/2010 08/21/2021 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 [facility] MON[facility] ([id number]) 1940 F Date Time Provider Department 03/30/25 [facility] During your visit today, we recorded the following information about you: Loli Lee LPN 03/30/2025 12:33 PM Signed Daughter calls in for lab and cxr results. At this time cxr is still in process. Daughter reports yesterday pt was unable to urinate enough for urinalysis so daughter will bring in urine today. Daughter reports pt is miserable so would like like to get atb started today if possible. Latest Ref Rng 03/29/2025 WBC 3.70 - 11.00 k/uL 9.36 RBC 3.90 - 5.20 m/uL 4.50 Hemoglobin 11.5 - 15.5 g/dL 13.2 Hematocrit 36.0 - 46.0 % 42.0 MCV 80.0 - 100.0 fL 93.3 MCH 26.0 - 34.0 pg 29.3 MCHC 30.5 - 36.0 g/dL 31.4 RDW-CV 11.5 - 15.0 % 13.3 Platelet Count 150 - 400 k/uL 447 (H) MPV 9.0 - 12.7 fL 10.5 Neut% % 65.6 Abs Neut (ANC) 1.45 - 7.50 k/uL 6.14 Lymph% % 20.3 Abs Lymph 1.00 - 4.00 k/uL 1.90 Loíza% % 8.5 Abs Loíza <0.87 k/uL 0.80 Eosin% % 2.9 Abs Eosin <0.46 k/uL 0.27 Baso% % 1.1 Abs Baso <0.11 k/uL 0.10 Immature Gran % % 1.6 IMMATURE GRANS (ABS) <0.10 k/uL 0.15 (H) NRBC /100 WBC 0.0 Absolute nRBC <0.01 k/uL <0.01 DTYPE Auto Protein, Total 6.3 - 8.0 g/dL 7.4 Albumin 3.9 - 4.9 g/dL 3.5 (L) Calcium 8.5 - 10.2 mg/dL 9.7 Bilirubin, Total 0.2 - 1.3 mg/dL 0.3 Alkaline Phosphatase 34 - 123 U/L 107 AST 13 - 35 U/L 20 ALT 7 - 38 U/L 10 Glucose 74 - 99 mg/dL 75 BUN 7 - 21 mg/dL 18 Creatinine 0.58 - 0.96 mg/dL 0.88 Sodium 136 - 144 mmol/L 137 Potassium 3.7 - 5.1 mmol/L 4.4 Chloride 98 - 107 mmol/L 102 CO2 22 - 30 mmol/L 23 Anion Gap 8 - 15 mmol/L 12 eGFR >=60 mL/min/1.73m? 64 Legend: (H) High (L) Low MIGUEL Vaca Amanda, RN 03/31/2025 9:25 AM Signed Per Bhavya Liu NP, Please call Mont[place]errat/daughter to let them know I put an order in for cipro to [facility], they need to hold her cephalexin while taking this. We will have to see what the culture comes back as to make sure it is sensitive, so it may need changed once that returns. We will keep them updated on results. Chest x-ray IMPRESSION: Chronic changes are stable. No acute process. Pts daughter called and is notified of providers results and instructions. Pt voices understanding. Alicia Levy RN Allergies As of Date: 03/30/2025 (No Known Allergies) Date Reviewed: 03/29/2025 Reviewed by: Kitty Forbes LPN - Fully Assessed Reason for Visit: Results [95] Primary Visit Diagnosis:Increased platelet count [R79.89] Order(s):ciprofloxaci n HCl (CIPRO) 500 mg tabletTake 1 tablet by mouth two times a day for 7 days.Disp: 14 tabletRfl: 0 COMPLETE BLOOD COUNT AND DIFFERENTIAL [SQCBCDIF] Order #: [id number] FUTURE Prescriptions as of 03/31/2025 - ciprofloxacin HCl (CIPRO) 500 mg tablet Take 1 tablet by mouth two times a day for 7 days. - lisinopril (ZESTRIL) 10 mg tablet Take 1 tablet by mouth once daily. - cephALEXin (KEFLEX) 250 mg capsule Take 1 capsule by mouth 3 days per week: Saturday, Saturday, Saturday. - amLODIPine (NORVASC) 5 mg tablet Take 1 tablet by mouth every afternoon. - methocarbamol (ROBAXIN) 500 mg tablet Take 1/2 to 1 tablet twice daily as needed for back pain, spasms - metoprolol succinate ER (TOPROL XL) 25 mg 24 hr tablet Take 1 tablet by mouth two times a day. - cyanocobalamin 1,000 mcg/mL Inject 1 mL intramuscularly every 2 weeks. - sertraline (ZOLOFT) 50 mg tablet Take 1 tablet by mouth daily at bedtime. - Walker (ULTRA-LIGHT ROLLATOR) misc 1 Device as directed. Dx: balance disorder, chronic back pain, gait disorder X-rays were taken of the Thoracic and Lumbar areas and showed degenerative/arthriti c changes as well as scoliosis of lower thoracic and lumbar spine. dx chronic bilateral low back pain - dexAMETHasone (DEXASOL) 0.1 % ophthalmic solution 1 Drop two times a week. Instill into ear canals, NOT EYES, for eczema of ear canals - metoprolol tartrate, short acting, (LOPRESSOR) 50 mg tablet Take 1 tablet by mouth two times a day. - lidocaine (SALONPAS) 4 % patch Apply 1 application as directed once daily. - metroNIDAZOLE 0.75 % cream Apply to affected area twice daily. For face for rosacea - atorvastatin (LIPITOR) 40 mg tablet Take by mouth. - albuterol HFA (VENTOLIN HFA) 90 mcg/actuation inhaler Inhale 2 Puffs as instructed every 4 hours as needed for Wheezing/Shortness of Breath. - ergocalciferol, vitamin D2, (DRISDOL) 50,000 unit capsule Take 1 capsule by mouth once each week. 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 Normal [facility] Urinalysis complete panel (U )on 03-30-2025 BACTERIA UL 1961.7 uL High Negative [facility] Comment on above: Order Comment: Speci men Type: URINE SPECIMENOrdering Facility: [facility] Address: [address] [place] [address] Performed By: #### 2 4356-8 ####[facility] LABCLIA [id number] [place] [id number] [place] Bilirubin Ql (U) Negative Normal Negative [facility] Comment on above: Order Comment: Speci men Type: URINE SPECIMENOrdering Facility: [facility] Address: [address] [place] [address] Performed By: #### 2 4356-8 ####[facility] LABCLIA [id number] [address] [address] [place] Clarity (Unsp spec) Cloudy Abnormal Clear [facility] Comment on above: Order Comment: Speci men Type: URINE SPECIMENOrdering Facility: [facility] Address: [address] [place] [address] Performed By: #### 2 4356-8 ####[facility] LABCLIA [id number] [address] [address] [place] Color (U) Yellow Normal Yellow [facility] Comment on above: Order Comment: Speci men Type: URINE SPECIMENOrdering Facility: [facility] Address: [address] [place] [address] Performed By: #### 2 4356-8 ####[facility] LABCLIA [id number] [address] Epithelial cells LM.HPF (Urine sed) [#/Area] Many Normal [facility] Comment on above: Order Comment: Speci men Type: URINE SPECIMENOrdering Facility: [facility] Address: [address] [place] [address] Performed By: #### 2 4356-8 ####[facility] LABCLIA [id number] [address] Glucose Test strip (U) [Mass/Vol] Negative Normal Negative [facility] Comment on above: Order Comment: Speci men Type: URINE SPECIMENOrdering Facility: [facility] Address: [address] [place] [address] Performed By: #### 2 4356-8 ####[facility] LABCLIA [id number] [place] [address] [place] Hemoglobin Ql (U) Negative Normal Negative [facility] Comment on above: Order Comment: Speci men Type: URINE SPECIMENOrdering Facility: [facility] Address: [address] [place] [address] Performed By: #### 2 4356-8 ####[facility] LABCLIA [id number] [address] [place] Hyaline casts (Urine sed) [#/Area] 0 /[LPF] Normal 0 /LPF [facility] Comment on above: Order Comment: Speci men Type: URINE SPECIMENOrdering Facility: [facility] Address: [address] [place] [address] Performed By: #### 2 4356-8 ####[facility] LABCLIA [id number] [place] [address] [place] Ketones Ql (U) Negative Normal Negative [facility] Comment on above: Order Comment: Speci men Type: URINE SPECIMENOrdering Facility: [facility] Address: [address] [place] [address] Performed By: #### 2 4356-8 ####[facility] LABCLIA [id number] [address] [place] [address] [place] Leukocyte esterase Test strip Ql (U) Negative Normal Negative [facility] Comment on above: Order Comment: Speci men Type: URINE SPECIMENOrdering Facility: [facility] Address: [address] [place] [address] Performed By: #### 2 4356-8 ####[facility] LABCLIA [id number] [address], [place] [address] [place] Nitrite Ql (U) Negative Normal Negative [facility] Comment on above: Order Comment: Speci men Type: URINE SPECIMENOrdering Facility: [facility] Address: [address] [place] [address] Performed By: #### 2 4356-8 ####[facility] LABCLIA [id number] [address], [facility] [place] pH (U) 6.5 [pH] Normal <8.5 [facility] Comment on above: Order Comment: Speci men Type: URINE SPECIMENOrdering Facility: [facility] Address: [address] [place] [address] Performed By: #### 2 4356-8 ####[facility] LABCLIA [id number] [address] [place] [address] [place] Protein (U) [Mass/Vol] Negative Normal Negative [facility] Comment on above: Order Comment: Speci men Type: URINE SPECIMENOrdering Facility: [facility] Address: [address] [place] [address] Performed By: #### 2 4356-8 ####[facility] LABCLIA [id number] [address] [place] RBC LM.HPF (Urine sed) [#/Area] 0-2 /HPF Normal 0-2 /HPF [facility] Comment on above: Order Comment: Speci men Type: URINE SPECIMENOrdering Facility: [facility] Address: [address] [place] [address] Performed By: #### 2 4356-8 ####[facility] LABIA [id number] [place] [address] [place] Specific gravity (U) [Rel density] 1.014 Normal 1.005-1.030 [facility] Comment on above: Order Comment: Speci men Type: URINE SPECIMENOrdering Facility: [facility] Address: [address] [place] [address] Performed By: #### 2 4356-8 ####[facility] [id number] [address] [place] Urobilinogen Ql (U) 1.0 EU/dL Normal 0.2-1.0 EU/dL [facility] Comment on above: Order Comment: Speci men Type: URINE SPECIMENOrdering Facility: [facility] Address: [address] [place] [address] Performed By: #### 2 4356-8 ####[facility] [id number] [address] [place] WBC LM.HPF (Urine sed) [#/Area] 0-5 /HPF Normal 0-5 /HPF [facility] Comment on above: Order Comment: Speci men Type: URINE SPECIMENOrdering Facility: [facility] Address: [address] [place] [address] Performed By: #### 2 4356-8 ####[facility] LABIA [id number] [place] [address] [place] CBC W Auto Differential pane l (Bld)on 03-29-2025 Basophils (Bld) [#/Vol] 0.1 10*3/uL [facility] Basophils/100 WBC (Bld) 1.1 % C [facility] Differential cell count method Nom (Bld) Auto [facility] Eosinophils (Bld) [#/Vol] 0.27 10*3/uL [facility] Eosinophils/100 WBC (Bld) 2.9 % [facility] Erythrocyte distribution width (RBC) [Ratio] 13.3 % 11.5 - 15.0 % [facility] Hematocrit (Bld) [Volume fraction] 42 % 36.0 - 46.0 % [facility] Hemoglobin (Bld) [Mass/Vol] 13.2 g/dL 11.5 - 15.5 g/dL [facility] Immature granulocytes (Bld) [#/Vol] 0.15 10*3/uL High [facility] Immature granulocytes/100 WBC (Bld) 1.6 % [facility] Interpretation and review of laboratory results Abnormal [facility] Lymphocytes (Bld) [#/Vol] 1.9 10*3/uL [facility] Lymphocytes/100 WBC (Bld) 20.3 % [facility] MCH (RBC) [Entitic mass] 29.3 pg 26. 0 - 34.0 pg [facility] MCHC (RBC) [Mass/Vol] 31.4 g/dL 30.5 - 36.0 g/dL [facility] MCV (RBC) [Entitic vol] 93.3 fL 80.0 - 100.0 fL [facility] Monocytes (Bld) [#/Vol] 0.8 10*3/uL [facility] Monocytes/100 WBC (Bld) 8.5 % C [facility] Neutrophils (Bld) [#/Vol] 6.14 10*3/uL [facility] Neutrophils/100 WBC (Bld) 65.6 % [facility] Nucleated RBC (Bld) [#/Vol] [facility] Nucleated RBC/100 WBC (Bld) [Ratio] 0 % /100 WBC [facility] Platelet mean volume (Bld) [Entitic vol] 10.5 fL 9.0 - 12.7 fL [facility] Platelets (Bld) [#/Vol] 447 10*3/uL High [facility] RBC (Bld) [#/Vol] 4.5 10*6/uL 3.90 - 5.2 0 m/uL [facility] WBC (Bld) [#/Vol] 9.36 10*3/uL [facility] Basophils (Bld) [#/Vol] 0.10 10*3/uL Normal <0.11 [facility] Comment on above: Order Comment: Speci men Type: BLOOD SPECIMENOrdering Facility: [facility] Address: [address] [place] [address] Performed By: #### 5 7021-8 ####[facility] LABCLIA [id number] [place] [address] [place] Basophils/100 WBC (Bld) 1.1 % Normal [facility] Comment on above: Order Comment: Speci men Type: BLOOD SPECIMENOrdering Facility: [facility] Address: [address] [place] [address] Performed By: #### 5 7021-8 ####[facility] LABCLIA [id number] [place] [address] [place] Differential cell count method Nom (Bld) Auto Normal [facility] Comment on above: Order Comment: Speci men Type: BLOOD SPECIMENOrdering Facility: [facility] Address: [address] [place] [address] Performed By: #### 5 7021-8 ####[facility] LABCLIA [id number] [place] [address] [place] Eosinophils (Bld) [#/Vol] 0.27 10*3/uL Normal <0.46 [facility] Comment on above: Order Comment: Speci men Type: BLOOD SPECIMENOrdering Facility: [facility] Address: [address] [place] [address] Performed By: #### 5 7021-8 ####[facility] LABCLIA [id number] [place] [address] [place] Eosinophils/100 WBC (Bld) 2.9 % Normal [facility] Comment on above: Order Comment: Speci men Type: BLOOD SPECIMENOrdering Facility: [facility] Address: [address] [place] [address] Performed By: #### 5 7021-8 ####[facility] LABIA [id number] [place] [address] [place] Erythrocyte distribution width (RBC) [Ratio] 13.3 % Normal 11.5-15.0 [facility] Comment on above: Order Comment: Speci men Type: BLOOD SPECIMENOrdering Facility: [facility] Address: [address] [place] [address] Performed By: #### 5 7021-8 ####[facility] LABIA [id number] [place] [address] [place] Hematocrit (Bld) [Volume fraction] 42.0 % Normal 36.0-46.0 [facility] Comment on above: Order Comment: Speci men Type: BLOOD SPECIMENOrdering Facility: [facility] Address: [address] [place] [address] Performed By: #### 5 7021-8 ####[facility] LABIA [id number] [place] [address] [place] Hemoglobin (Bld) [Mass/Vol] 13.2 g/dL Normal 11.5-15.5 [facility] Comment on above: Order Comment: Speci men Type: BLOOD SPECIMENOrdering Facility: [facility] Address: [address] [place] [address] Performed By: #### 5 7021-8 ####[facility] LABIA [id number] [place] [address] [place] Immature granulocytes (Bld) [#/Vol] 0.15 10*3/uL High <0.10 [facility] Comment on above: Order Comment: Speci men Type: BLOOD SPECIMENOrdering Facility: [facility] Address: [address] [place] [address] Performed By: #### 5 7021-8 ####[facility] LABCLIA [id number] [address] [address] [place] Immature granulocytes/100 WBC (Bld) 1.6 % Normal [facility] Comment on above: Order Comment: Speci men Type: BLOOD SPECIMENOrdering Facility: [facility] Address: [address] [place] [address] Performed By: #### 5 7021-8 ####[facility] LABCLIA [id number] [place] [address] [place] Lymphocytes (Bld) [#/Vol] 1.90 10*3/uL Normal 1.00-4.00 [facility] Comment on above: Order Comment: Speci men Type: BLOOD SPECIMENOrdering Facility: [facility] Address: [address] [place] [address] Performed By: #### 5 7021-8 ####[facility] LABIA [id number] [place] [address] [place] Lymphocytes/100 WBC (Bld) 20.3 % Normal [facility] Comment on above: Order Comment: Speci men Type: BLOOD SPECIMENOrdering Facility: [facility] Address: [address] [place] [address] Performed By: #### 5 7021-8 ####[facility] LABIA [id number] [place] [address] [place] MCH (RBC) [Entitic mass] 29.3 pg Normal 26.0-34.0 [facility] Comment on above: Order Comment: Speci men Type: BLOOD SPECIMENOrdering Facility: [facility] Address: [address] [place] [address] Performed By: #### 5 7021-8 ####[facility] LABCLIA [id number] [place] [address] [place] MCHC (RBC) [Mass/Vol] 31.4 g/dL Normal 30.5-36.0 [facility] Comment on above: Order Comment: Speci men Type: BLOOD SPECIMENOrdering Facility: [facility] Address: [address] [place] [address] Performed By: #### 5 7021-8 ####[facility] LABCLIA [id number] [address] [address] [place] MCV (RBC) [Entitic vol] 93.3 fL Normal 80.0-100.0 C [facility] Comment on above: Order Comment: Speci men Type: BLOOD SPECIMENOrdering Facility: [facility] Address: [address] [place] [address] Performed By: #### 5 7021-8 ####[facility] LABIA [id number] [place] [address] [place] Monocytes (Bld) [#/Vol] 0.80 10*3/uL Normal <0.87 [facility] Comment on above: Order Comment: Speci men Type: BLOOD SPECIMENOrdering Facility: [facility] Address: [address] [place] [address] Performed By: #### 5 7021-8 ####[facility] LABIA [id number] [place] [address] [place] Monocytes/100 WBC (Bld) 8.5 % Normal [facility] Comment on above: Order Comment: Speci men Type: BLOOD SPECIMENOrdering Facility: [facility] Address: [address] [place] [address] Performed By: #### 5 7021-8 ####[facility] LABIA [id number] [place] [address] [place] Neutrophils (Bld) [#/Vol] 6.14 10*3/uL Normal 1.45-7.50 [facility] Comment on above: Order Comment: Speci men Type: BLOOD SPECIMENOrdering Facility: [facility] Address: [address] [place] [address] Performed By: #### 5 7021-8 ####[facility] LABCLIA [id number] [place] [address] [place] Neutrophils/100 WBC (Bld) 65.6 % Normal [facility] Comment on above: Order Comment: Speci men Type: BLOOD SPECIMENOrdering Facility: [facility] Address: [address] [place] [address] Performed By: #### 5 7021-8 ####[facility] LABCLIA [id number] [place] [address] [place] Nucleated RBC (Bld) [#/Vol] 10*3/uL Normal <0.01 [facility] Comment on above: Order Comment: Speci men Type: BLOOD SPECIMENOrdering Facility: [facility] Address: [address] [place] [address] Performed By: #### 5 7021-8 ####[facility] LABIA [id number] [place] [address] [place] Nucleated RBC/100 WBC (Bld) [Ratio] 0.0 /100 WBC Normal [facility] Comment on above: Order Comment: Speci men Type: BLOOD SPECIMENOrdering Facility: [facility] Address: [address] [place] [address] Performed By: #### 5 7021-8 ####[facility] LABIA [id number] [place] [address] [place] Platelet mean volume (Bld) [Entitic vol] 10.5 fL Normal 9.0-12.7 [facility] Comment on above: Order Comment: Speci men Type: BLOOD SPECIMENOrdering Facility: [facility] Address: [address] [place] [address] Performed By: #### 5 7021-8 ####[facility] LABIA [id number] [place] [address] [place] Platelets (Bld) [#/Vol] 447 10*3/uL High 150-400 [facility] Comment on above: Order Comment: Speci men Type: BLOOD SPECIMENOrdering Facility: [facility] Address: [address] [place] [address] Performed By: #### 5 7021-8 ####[facility] LABCLIA [id number] [place] [address] [place] RBC (Bld) [#/Vol] 4.50 10*6/uL Normal 3.90-5.20 [facility] Comment on above: Order Comment: Speci men Type: BLOOD SPECIMENOrdering Facility: [facility] Address: [address] [place] [address] Performed By: #### 5 7021-8 ####[facility] LABIA [id number] [place] [address] [place] WBC (Bld) [#/Vol] 9.36 10*3/uL Normal 3.70-11.00 [facility] Comment on above: Order Comment: Speci men Type: BLOOD SPECIMENOrdering Facility: [facility] Address: [address] [place] [address] Performed By: #### 5 7021-8 ####[facility] LABIA [id number] [address] [place] CNOVon 03-29-2025 CNOV Office Visit (ROMAWS ) MONTSERRAT WEBB ([id number]) 1940 F Date Time Provider Department 03/29/25 11:00 AM [facility] During your visit today, we recorded the following information about you: Pulse Respiration Blood pressure 65/minute 14/minute 173/98 Bhavya Liu, SHAHLA.BALING PRESS OPERATOR 03/29/2025 1:58 PM Signed This is a 84 year old female who presents today with: Montserrat is an 84-year-old female, accompanied by her daughter who is providing history on Montserrat's behalf, presenting for evaluation of a persistent cough, fatigue, and weight loss. HISTORY OF PRESENT ILLNESS: Cough: - Persistent, nonproductive cough x3 weeks. - Initially accompanied by a sore throat - Triggered by eating and drinking; no significant change when lying down. - Tried NyQuil for 2 days and an Jeremy ritual involving onions and salt with some perceived benefit. - Denies chest pain and both patient and daughters deny shortness of breath -afebrile - was ill as well when this started 3 weeks ago, but his only lasted a couple of days Fatigue: - Severe fatigue, with increased somnolence. - Decreased oral intake; requires encouragement to eat. - sleep quality reported as good. Appetite and Weight Loss: - Approximately 10 lb weight loss since September, she was unable to be weighed today due to weakness to stand on scale - Early satiety noted; takes only a few bites and daughters say she is done -patient reports food and drinks don't taste the same. - report concerns of constipation and her memory not able to communicate last BM accurately Arthritis: - Complains of pain in the right thumb, suspected to be arthritic in nature. - History of extensive use of the right hand for gardening and live. UTI Prophylaxis: - Currently on prophylactic medication for UTI prevention, administered M/W/. - Concerns about potential UTI due to current symptoms. HTN - elevated BP, daughter says it was fine yesterday. Nurse reports coughing when attempting to obtain BP PAST MEDICAL HISTORY: PAST MEDICAL HISTORY Diagnosis Date Anxiety Benign essential hypertension Bunion CHF (congestive heart failure) (HCC) Chronic kidney disease, stage III (moderate) (HCC) Decreased GFR Diverticulosis of colon (without mention of hemorrhage) Dysuria Fatigue Internal hemorrhoids without mention of complication Low back pain Memory loss Mild cognitive impairment Neuralgia and neuritis Nevus, non-neoplastic Osteopenia Overactive bladder PMH - PAST MEDICAL HISTORY OF temporomandibular joint disorders PMH - PAST MEDICAL HISTORY OF 2003 breast cancer - with chemotherapy and right mastectomy Pneumonia, organism unspecified(486) Middle of February Raynaud's syndrome Seborrheic keratosis Secondary cardiomyopathy, unspecified Vitamin D deficiency PAST SURGICAL HISTORY Procedure Laterality Date COLONOSCOPY FLX DX W/COLLJ SPEC WHEN PFRMD 10/14/07 HYSTERECTOMY N/A 1983 Partial PAST SURGICAL HISTORY OF 1991 breast bx PAST SURGICAL HISTORY OF 2003 breast cancer right/chemotherapy PAST SURGICAL HISTORY OF May 2010 Port removed ALLERGIES Patient has no known allergies. MEDICATIONS Current Outpatient Medications Medication Sig lisinopril (ZESTRIL) 10 mg tablet Take 1 tablet by mouth once daily. cephALEXin (KEFLEX) 250 mg capsule Take 1 capsule by mouth 3 days per week: Saturday, Saturday, Saturday. methocarbamol (ROBAXIN) 500 mg tablet Take 1/2 to 1 tablet twice daily as needed for back pain, spasms metoprolol succinate ER (TOPROL XL) 25 mg 24 hr tablet Take 1 tablet by mouth two times a day. sertraline (ZOLOFT) 50 mg tablet Take 1 tablet by mouth daily at bedtime. Walker (ULTRA-LIGHT ROLLATOR) misc 1 Device as directed. Dx: balance disorder, chronic back pain, gait disorder X-rays were taken of the Thoracic and Lumbar areas and showed degenerative/arthriti c changes as well as scoliosis of lower thoracic and lumbar spine. dx chronic bilateral low back pain dexAMETHasone (DEXASOL) 0.1 % ophthalmic solution 1 Drop two times a week. Instill into ear canals, NOT EYES, for eczema of ear canals lidocaine (SALONPAS) 4 % patch Apply 1 application as directed once daily. metroNIDAZOLE 0.75 % cream Apply to affected area twice daily. For face for rosacea atorvastatin (LIPITOR) 40 mg tablet Take by mouth. albuterol HFA (VENTOLIN HFA) 90 mcg/actuation inhaler Inhale 2 Puffs as instructed every 4 hours as needed for Wheezing/Shortness of Breath. ergocalciferol, vitamin D2, (DRISDOL) 50,000 unit capsule Take 1 capsule by mouth once each week. amLODIPine (NORVASC) 5 mg tablet Take 1 tablet by mouth every afternoon. cyanocobalamin 1,000 mcg/mL Inject 1 mL intramuscularly every 2 weeks. metoprolol tartrate, short acting, (LOPRESSOR) 50 mg tablet Take 1 tablet by mouth two times a day. (Anitra (more content not included)... Normal [facility] Comprehensive metabolic 2000 panelon 03-29-2025 Albumin [Mass/Vol] 3.5 g/dL Low 3.9-4.9 [facility] Comment on above: Order Comment: Speci men Type: BLOOD SPECIMENOrdering Facility: [facility] Address: [address] [place] [address] Performed By: #### 2 4323-8 ####[facility] LABCLIA [id number] [place] [address] [place] ALP [Catalytic activity/Vol] 107 U/L Normal 34-123 [facility] Comment on above: Order Comment: Speci men Type: BLOOD SPECIMENOrdering Facility: [facility] Address: [address] [place] [address] Performed By: #### 2 4323-8 ####[facility] LABCLIA [id number] [place] [address] [place] ALT [Catalytic activity/Vol] 10 U/L Normal 7-38 [facility] Comment on above: Order Comment: Speci men Type: BLOOD SPECIMENOrdering Facility: [facility] Address: [address] [place] [address] Performed By: #### 2 4323-8 ####[facility] LABCLIA [id number] [place] [address] [place] Anion gap [Moles/Vol] 12 mmol/L Normal 8-15 [facility] Comment on above: Order Comment: Speci men Type: BLOOD SPECIMENOrdering Facility: [facility] Address: [address] [place] [address] Performed By: #### 2 4323-8 ####[facility] LABCLIA [id number] [place] [id number] [place] AST [Catalytic activity/Vol] 20 U/L Normal 13-35 [facility] Comment on above: Order Comment: Speci men Type: BLOOD SPECIMENOrdering Facility: [facility] Address: [address] [place] [address] Performed By: #### 2 4323-8 ####[facility] LABCLIA [id number] [place] [address] [place] Bilirubin [Mass/Vol] 0.3 mg/dL Normal 0.2-1.3 [facility] Comment on above: Order Comment: Speci men Type: BLOOD SPECIMENOrdering Facility: [facility] Address: [address] [place] [address] Performed By: #### 2 4323-8 ####[facility] LABCLIA [id number] [place] [address] [place] Calcium [Mass/Vol] 9.7 mg/dL Normal 8.5-10.2 [facility] Comment on above: Order Comment: Speci men Type: BLOOD SPECIMENOrdering Facility: [facility] Address: [address] [place] [address] Performed By: #### 2 4323-8 ####[facility] LABCLIA [id number] [place] [address] [place] Chloride [Moles/Vol] 102 mmol/L Normal 98-107 [facility] Comment on above: Order Comment: Speci men Type: BLOOD SPECIMENOrdering Facility: [facility] Address: [address] [place] [address] Performed By: #### 2 4323-8 ####[facility] LABCLIA [id number] [place] [address] [place] CO2 [Moles/Vol] 23 mmol/L Normal 22-30 [facility] Comment on above: Order Comment: Speci men Type: BLOOD SPECIMENOrdering Facility: [facility] Address: [address] [place] [address] Performed By: #### 2 4323-8 ####[facility] LABCLIA [id number] [address] [place] [facility] Creatinine [Mass/Vol] 0.88 mg/dL Normal 0.58-0.96 [facility] Comment on above: Order Comment: Jaswant blancas Type: BLOOD SPECIMENOrdering Facility: [facility] Address: [address] [place] [address] Performed By: #### 2 4323-8 ####[facility] LABIA [id number] [place] [address] [facility] Creatinine and Glomerular filtration rate.predicted panel (S/P/Bld) 64 mL/min/1.73m??? Normal >=60 [facility] Comment on above: Order Comment: Jaswant blancas Type: BLOOD SPECIMENOrdering Facility: [facility] Address: [address] [place] [address] Result Comment: Nicole mated Glomerular Filtration Rate (eGFR) is calculated using the 2020 CKD-EPI creatinine equation. This equation utilizes serum creatinine, sex, and age as parameters. The creatinine assay has traceable calibration to isotope dilution-mass spectrometry. Refer to KDIGO guidelines for clinical interpretation. In patients with unstable renal function, e.g. those with acute kidney injury, the eGFR may not accurately reflect actual GFR. Performed By: #### 2 4323-8 ####[facility] LABIA [id number] [place] [address] [place] Glucose [Mass/Vol] 75 mg/dL Normal 74-99 [facility] Comment on above: Order Comment: Jaswant blancas Type: BLOOD SPECIMENOrdering Facility: [facility] Address: [address] [place] [address] Result Comment: The [place] [employer] (ADA) provides guidance for cutoff values for fasting glucose and random glucose. The ADA defines fasting as no caloric intake for at least 8 hours. Fasting plasma glucose results between 100 to 125 mg/dL indicate increased risk for diabetes (prediabetes). Fasting plasma glucose results greater than or equal to 126 mg/dL meet the criteria for diagnosis of diabetes. In the absence of unequivocal hyperglycemia, results should be confirmed by repeat testing. In a patient with classic symptoms of hyperglycemia or hyperglycemic crisis, random plasma glucose results greater than or equal to 200 mg/dL meet the criteria for diagnosis of diabetes. Reference: Standards of Medical Care in Diabetes 2016, [place] [employer]. Diabetes Care. 2016.39(Suppl 1). Performed By: #### 2 4323-8 ####[facility] LABCLIA [id number] [address] [address] [place] Potassium [Moles/Vol] 4.4 mmol/L Normal 3.7-5.1 [facility] Comment on above: Order Comment: Speci men Type: BLOOD SPECIMENOrdering Facility: [facility] Address: [address] [place] [address] Performed By: #### 2 432-8 ####[facility] LABIA [id number] [address] [address] [place] Protein [Mass/Vol] 7.4 g/dL Normal 6.3-8.0 [facility] Comment on above: Order Comment: Speci men Type: BLOOD SPECIMENOrdering Facility: [facility] Address: [address] [place] [id number] Performed By: #### 2 432-8 ####[facility] LABIA [id number] [address] [address] [place] Sodium [Moles/Vol] 137 mmol/L Normal 136-144 [facility] Comment on above: Order Comment: Speci men Type: BLOOD SPECIMENOrdering Facility: [facility] Address: [address] [place] [address] Performed By: #### 2 4323-8 ####[facility] LABCLIA [id number] [address] [address] [place] Urea nitrogen [Mass/Vol] 18 mg/dL Normal 7-21 [facility] Comment on above: Order Comment: Speci men Type: BLOOD SPECIMENOrdering Facility: [facility] Address: [address] [place] [address] Performed By: #### 2 4323-8 ####[facility] LABCLIA [id number] [place] [address] [place] XR CHEST 2V FRONTAL/LATon XR CHEST 2V FRONTAL/LAT * * *Final Repor t* * * DATE OF EXAM: Mar 29 2025 12:35PM WOX [id number] - XR CHEST 2V FRONTAL/LAT / PROCEDURE REASON: multiple diagnoses * * * * Physician Interpretation * * * * EXAMINATION: CHEST RADIOGRAPH (2 VIEW FRONTAL and LATERAL) CLINICAL HISTORY: Generalized weakness Fatigue, unspecified type MQ: [id number] EXAM DATE/TIME: 03/29/2025 12:35 PM COMPARISON: 11/28/2022 RESULT: Lines, tubes, and devices: None. Lungs and pleura: There are scattered reticular opacities in the right perihilar region and bilateral lung bases appearing similar to prior and likely related to scarring. No definite superimposed consolidation. No pleural fluid. No pneumothorax. Cardiomediastinal silhouette: Normal cardiomediastinal silhouette. Atherosclerotic aorta. Bones and soft tissues: Chronic and degenerative changes noted in the spine. IMPRESSION: Chronic changes are stable. No acute process. General Office Associate: PSCB Transcribe Date/Time: Mar 31 2025 7:44A Dictated by : LUCIA DAVILA MD This examination was interpreted and the report reviewed and electronically signed by: LUCIA DAVILA MD on Mar 31 2025 7:45AM EST [id number] N [facility] CNPN Telephone (FAMPTW) MONTSERRAT WEBB ([id number]) 1940 F Date Time Provider Department 11/05/24 LAWSON RAMOS FAMPTW During your visit today, we recorded the following information about you: Lacy Case 11/05/2024 9:14 AM Addendum Prescription Refill Information The patient has been identified by name and date of : Yes Caregiver verified no other encounters exist for this prescription request: Yes Caregiver confirmed with patient/requestor that no other refills are due, in the near future, with this provider at this time: Yes The last office visit in the department: 09/16/2024 Does the patient have a future office visit with this provider/department: Yes Requested Prescriptions No prescriptions requested or ordered in this encounter [facility] 8[facility] 11/05/2024 11:32 AM Addendum Patient daughter, to call back with medication name Spoke with patient daughter, please disregard this message as the amlodipine was already sent on another encounter. Allergies As of Date: 11/05/2024 (No Known Allergies) Date Reviewed: 09/16/2024 Reviewed by: Lily Ho LPN - Fully Assessed Prescriptions as of 11/05/2024 - amLODIPine (NORVASC) 5 mg tablet Take 1 tablet by mouth every afternoon. - methocarbamol (ROBAXIN) 500 mg tablet Take 1/2 to 1 tablet twice daily as needed for back pain, spasms - metoprolol succinate ER (TOPROL XL) 25 mg 24 hr tablet Take 1 tablet by mouth two times a day. - cyanocobalamin 1,000 mcg/mL Inject 1 mL intramuscularly every 2 weeks. - cephALEXin (KEFLEX) 250 mg capsule Take 1 capsule by mouth 3 days per week: Saturday, Saturday, Saturday. - lisinopril (ZESTRIL) 10 mg tablet Take 1 tablet by mouth once daily. - sertraline (ZOLOFT) 50 mg tablet Take 1 tablet by mouth daily at bedtime. - Walker (ULTRA-LIGHT ROLLATOR) misc 1 Device as directed. Dx: balance disorder, chronic back pain, gait disorder X-rays were taken of the Thoracic and Lumbar areas and showed degenerative/arthriti c changes as well as scoliosis of lower thoracic and lumbar spine. dx chronic bilateral low back pain - dexAMETHasone (DEXASOL) 0.1 % ophthalmic solution 1 Drop two times a week. Instill into ear canals, NOT EYES, for eczema of ear canals - metoprolol tartrate, short acting, (LOPRESSOR) 50 mg tablet Take 1 tablet by mouth two times a day. - lidocaine (SALONPAS) 4 % patch Apply 1 application as directed once daily. - metroNIDAZOLE 0.75 % cream Apply to affected area twice daily. For face for rosacea - atorvastatin (LIPITOR) 40 mg tablet Take by mouth. - albuterol HFA (VENTOLIN HFA) 90 mcg/actuation inhaler Inhale 2 Puffs as instructed every 4 hours as needed for Wheezing/Shortness of Breath. - ergocalciferol, vitamin D2, (DRISDOL) 50,000 unit capsule Take 1 capsule by mouth once each week. 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/2005 History of breast cancer [Z85.3] 11/01/2005 Fitting and adjustment of vascular catheter [Z4*02/08/2006 08/21/2021 Secondary and unspecified malignant neoplasm of*05/30/2006 08/21/2021 ROSACEA [L71.9] 12/14/2008 SEBORRHEIC KERATOSIS NOS [L82.1] 12/14/2008 Inflamed seborrheic keratosis [L82.0] 12/14/2008 10/21/2012 Viral warts, unspecified [B07.9] 12/14/2008 08/21/2021 SOLAR LENTIGENES///DYSCHROM IA OTHER [L81.9] 12/14/2008 10/21/2012 ACTINIC DAMAGE///CHR SOLAR SKIN DAMAGE NOS [L57*12/14/2008 01/26/2013 ER+ (estrogen receptor positive status) [Z17.0] 05/02/2010 08/21/2021 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 [D*06/20/2010 Actinic Keratosis (Premalignant AK) [L57.0] 06/21/2010 Tongue, Geographic [K14.1] 06/21/2010 Oral Submucosal Fibrosis/Tongue [K13.5] 06/21/2010 Lipoma: L forearm [D17.9] 06/21/2010 08/21/2021 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] 06/21/2010 08/21/2021 Open wound site: R ear: probable infection [T1*11/12/2010 08/21/2021 Surgical wound infection [T81.49XA] 11/12/2010 08/21/2021 Pyoderma, unspecified [L08.0] 11/12/2010 08/21/2021 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 *11/12/2010 Scar condition and fibrosis of skin [L90.5] 12/02/2010 Solar Lentigo//Solar Lentigines [L81.4] 10/17/2011 Actinic skin damage [L57.8] 10/17/2011 Vitamin D deficiency [E55.9] 05/30/2012 Irritated//Inflamed Seborrheic Keratosis [L82.0]10/21/2012 08/21/2021 Postinflammatory skin changes [R23.8] 01/26/2013 Tongue lesion [K14.8] 01/26/2013 Osteoporosis [M81.0] 06/16/2013 History of breast cancer in female [Z85.3] 06/16/2013 Hypertension, essential [I10] 10/13/2019 Forgetfulness [R68.89] 10/13/2019 Dementia without behavioral disturbance (HCC) [*12/08/2019 08/21/2021 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 Normal [facility] 25(OH)D3 [facility] 2023 25-hydroxyvitamin D3 [Mass/Vol] 69.2 ng/mL Normal 31.0-80.0 [facility] Comment on above: Order Comment: Speci men Type: BLOOD SPECIMENOrdering Facility: [facility] Address: [address] [place] [address] Result Comment: Clas sification of 25 [place] Vitamin D status: Deficiency/Insufficiency: < or = 30 ng/ml. Sufficiency/Optimal Levels: 31-80 ng/mL Toxicity: > 100 ng/mL. Test performed by chemiluminescent immunoassay. Performed By: #### 1 989-3 ####[facility] LABCLIA [id number] [id number] [address] [place] CBC W Auto Differential pane l (Bld)on 09-16-2024 Basophils (Bld) [#/Vol] 0.08 10*3/uL [facility] Basophils/100 WBC (Bld) 1.2 % C [facility] Differential cell count method Nom (Bld) Auto [facility] Eosinophils (Bld) [#/Vol] 0.22 10*3/uL [facility] Eosinophils/100 WBC (Bld) 3.3 % [facility] Erythrocyte distribution width (RBC) [Ratio] 13.1 % 11.5 - 15.0 % [facility] Hematocrit (Bld) [Volume fraction] 43.7 % 36.0 - 46.0 % [facility] Hemoglobin (Bld) [Mass/Vol] 13.9 g/dL 11.5 - 15.5 g/dL [facility] Immature granulocytes (Bld) [#/Vol] 0.04 10*3/uL [facility] Immature granulocytes/100 WBC (Bld) 0.6 % [facility] Lymphocytes (Bld) [#/Vol] 1.76 10*3/uL [facility] Lymphocytes/100 WBC (Bld) 26.2 % [facility] MCH (RBC) [Entitic mass] 30.2 pg 26. 0 - 34.0 pg [facility] MCHC (RBC) [Mass/Vol] 31.8 g/dL 30.5 - 36.0 g/dL [facility] MCV (RBC) [Entitic vol] 95.0 fL 80.0 - 100.0 fL [facility] Monocytes (Bld) [#/Vol] 0.70 10*3/uL [facility] Monocytes/100 WBC (Bld) 10.4 % C [facility] Neutrophils (Bld) [#/Vol] 3.93 10*3/uL [facility] Neutrophils/100 WBC (Bld) 58.3 % [facility] Nucleated RBC (Bld) [#/Vol] [facility] Nucleated RBC/100 WBC (Bld) [Ratio] 0.0 % /100 WBC [facility] Platelet mean volume (Bld) [Entitic vol] 11.0 fL 9.0 - 12.7 fL [facility] Platelets (Bld) [#/Vol] 273 10*3/uL [facility] RBC (Bld) [#/Vol] 4.60 10*6/uL 3.90 - 5.2 0 m/uL [facility] WBC (Bld) [#/Vol] 6.73 10*3/uL [facility] Basophils (Bld) [#/Vol] 0.08 10*3/uL Normal <0.11 [facility] Comment on above: Order Comment: Speci men Type: BLOOD SPECIMENOrdering Facility: [facility] Address: [address] [place] [address] Performed By: #### 5 7021-8 ####[facility] LABCLIA [id number] [place] [address] [place] Basophils/100 WBC (Bld) 1.2 % Normal C [facility] Comment on above: Order Comment: Speci men Type: BLOOD SPECIMENOrdering Facility: [facility] Address: [address] [place] [address] Performed By: #### 5 7021-8 ####[facility] LABCLIA [id number] [place] [address] [place] Differential cell count method Nom (Bld) Auto Normal [facility] Comment on above: Order Comment: Speci men Type: BLOOD SPECIMENOrdering Facility: [facility] Address: [address] [place] [address] Performed By: #### 5 7021-8 ####[facility] LABCLIA [id number] [place] [address] [place] Eosinophils (Bld) [#/Vol] 0.22 10*3/uL Normal <0.46 [facility] Comment on above: Order Comment: Speci men Type: BLOOD SPECIMENOrdering Facility: [facility] Address: [address] [place] [address] Performed By: #### 5 7021-8 ####[facility] LABCLIA [id number] [place] [address] [place] Eosinophils/100 WBC (Bld) 3.3 % Normal [facility] Comment on above: Order Comment: Speci men Type: BLOOD SPECIMENOrdering Facility: [facility] Address: [address] [place] [address] Performed By: #### 5 7021-8 ####[facility] LABCLIA [id number] [place] [address] [place] Erythrocyte distribution width (RBC) [Ratio] 13.1 % Normal 11.5-15.0 [facility] Comment on above: Order Comment: Speci men Type: BLOOD SPECIMENOrdering Facility: [facility] Address: [address] [place] [address] Performed By: #### 5 7021-8 ####[facility] LABIA [id number] [place] [address] [place] Hematocrit (Bld) [Volume fraction] 43.7 % Normal 36.0-46.0 [facility] Comment on above: Order Comment: Speci men Type: BLOOD SPECIMENOrdering Facility: [facility] Address: [address] [place] [address] Performed By: #### 5 7021-8 ####[facility] LABIA [id number] [place] [address] [place] Hemoglobin (Bld) [Mass/Vol] 13.9 g/dL Normal 11.5-15.5 [facility] Comment on above: Order Comment: Speci men Type: BLOOD SPECIMENOrdering Facility: [facility] Address: [address] [place] [address] Performed By: #### 5 7021-8 ####[facility] LABCLIA [id number] [place] [address] [place] Immature granulocytes (Bld) [#/Vol] 0.04 10*3/uL Normal <0.10 [facility] Comment on above: Order Comment: Speci men Type: BLOOD SPECIMENOrdering Facility: [facility] Address: [address] [place] [address] Performed By: #### 5 7021-8 ####[facility] LABCLIA [id number] [place] [address] [place] Immature granulocytes/100 WBC (Bld) 0.6 % Normal [facility] Comment on above: Order Comment: Speci men Type: BLOOD SPECIMENOrdering Facility: [facility] Address: [address] [place] [address] Performed By: #### 5 7021-8 ####[facility] LABCLIA [id number] [place] [address] [place] Lymphocytes (Bld) [#/Vol] 1.76 10*3/uL Normal 1.00-4.00 [facility] Comment on above: Order Comment: Speci men Type: BLOOD SPECIMENOrdering Facility: [facility] Address: [address] [place] [address] Performed By: #### 5 7021-8 ####[facility] LABCLIA [id number] [place] [address] [place] Lymphocytes/100 WBC (Bld) 26.2 % Normal [facility] Comment on above: Order Comment: Speci men Type: BLOOD SPECIMENOrdering Facility: [facility] Address: [address] [place] [address] Performed By: #### 5 7021-8 ####[facility] LABCLIA [id number] [place] [address] [place] MCH (RBC) [Entitic mass] 30.2 pg Normal 26.0-34.0 [facility] Comment on above: Order Comment: Speci men Type: BLOOD SPECIMENOrdering Facility: [facility] Address: [address] [place] [address] Performed By: #### 5 7021-8 ####[facility] LABCLIA [id number] [address] [place] MCHC (RBC) [Mass/Vol] 31.8 g/dL Normal 30.5-36.0 [facility] Comment on above: Order Comment: Speci men Type: BLOOD SPECIMENOrdering Facility: [facility] Address: [address] [place] [address] Performed By: #### 5 7021-8 ####[facility] LABCLIA [id number] [place] [address] [place] MCV (RBC) [Entitic vol] 95.0 fL Normal 80.0-100.0 [facility] Comment on above: Order Comment: Speci men Type: BLOOD SPECIMENOrdering Facility: [facility] Address: [address] [place] [address] Performed By: #### 5 7021-8 ####[facility] LABCLIA [id number] [place] [address] [place] Monocytes (Bld) [#/Vol] 0.70 10*3/uL Normal <0.87 [facility] Comment on above: Order Comment: Speci men Type: BLOOD SPECIMENOrdering Facility: [facility] Address: [address] [place] [address] Performed By: #### 5 7021-8 ####[facility] LABIA [id number] [place] [address] [place] Monocytes/100 WBC (Bld) 10.4 % Normal [facility] Comment on above: Order Comment: Speci men Type: BLOOD SPECIMENOrdering Facility: [facility] Address: [address] [place] [address] Performed By: #### 5 7021-8 ####[facility] LABCLIA [id number] [place] [address] [place] Neutrophils (Bld) [#/Vol] 3.93 10*3/uL Normal 1.45-7.50 [facility] Comment on above: Order Comment: Speci men Type: BLOOD SPECIMENOrdering Facility: [facility] Address: [address] [place] [address] Performed By: #### 5 7021-8 ####[facility] LABCLIA [id number] [place] [address] [place] Neutrophils/100 WBC (Bld) 58.3 % Normal [facility] Comment on above: Order Comment: Speci men Type: BLOOD SPECIMENOrdering Facility: [facility] Address: [address] [place] [address] Performed By: #### 5 7021-8 ####[facility] LABCLIA [id number] [place] [address] [place] Nucleated RBC (Bld) [#/Vol] 10*3/uL Normal <0.01 [facility] Comment on above: Order Comment: Speci men Type: BLOOD SPECIMENOrdering Facility: [facility] Address: [address] [place] [address] Performed By: #### 5 7021-8 ####[facility] LABIA [id number] [place] [address] [place] Nucleated RBC/100 WBC (Bld) [Ratio] 0.0 /100 WBC Normal [facility] Comment on above: Order Comment: Speci men Type: BLOOD SPECIMENOrdering Facility: [facility] Address: [address] [place] [address] Performed By: #### 5 7021-8 ####[facility] LABCLIA [id number] [place] [address] [place] Platelet mean volume (Bld) [Entitic vol] 11.0 fL Normal 9.0-12.7 [facility] Comment on above: Order Comment: Speci men Type: BLOOD SPECIMENOrdering Facility: [facility] Address: [address] [place] [address] Performed By: #### 5 7021-8 ####[facility] LABCLIA [id number] [place] [address] [place] Platelets (Bld) [#/Vol] 273 10*3/uL Normal 150-400 [facility] Comment on above: Order Comment: Speci men Type: BLOOD SPECIMENOrdering Facility: [facility] Address: [address] [place] [address] Performed By: #### 5 7021-8 ####[facility] LABIA [id number] [place] [address] [place] RBC (Bld) [#/Vol] 4.60 10*6/uL Normal 3.90-5.20 [facility] Comment on above: Order Comment: Speci men Type: BLOOD SPECIMENOrdering Facility: [facility] Address: [address] [place] [address] Performed By: #### 5 7021-8 ####[facility] [id number] [place] [address] [place] WBC (Bld) [#/Vol] 6.73 10*3/uL Normal 3.70-11.00 [facility] Comment on above: Order Comment: Speci men Type: BLOOD SPECIMENOrdering Facility: [facility] Address: [address] [place] [address] Performed By: #### 5 7021-8 ####[facility] [id number] [place] [address] [place] CNOVon 09-16-2024 CNOV Office Visit (FAMPWS ) MONTSERRAT WEBB ([id number]) 1940 F Date Time Provider Department 09/16/24 10:20 AM LAWSON RAMOS During your visit today, we recorded the following information about you: Temperature Pulse Respiration Blood pressure 97.1 degrees 64/minute 20/minute 110/60 Weight 66.2 kg Lawson Ramos DO 09/16/2024 12:18 PM Signed CC: Montserrat Webb is a 84 year old female who presents to the office for follow up HPI: Seen in office in Nov by Gloria Remy CNP, as below: Accompanied by daughter Mallorie and assisting in HPI today. Has chronic low back pain. Since the season of fall (3-4 months) has increased significantly in pain. Goes across her entire lower back but does not radiate. Uses heating pad. Doesn't typically use pain medication. Doesn't necessarily like to take medications. Standing is worse. Difficult to walk any distance. Difficult going up steps. Is using cane, feels more stable. Hasn't had any falls for 3-4 years. At last follow up in February She is present with daughters Sendy and Mallorie in the office today who are helping her with mobility as well as answering questions She has been having increased mid and low back chronic pain. Since the season of fall (3-4 months) has increased significantly in pain. Goes across her entire lower and mid back but does not radiate. Uses heating pad. Doesn't typically use pain medication. Doesn't necessarily like to take medications but has gotten to the point that she needs to do something. They installed a stair lift chair in the home recently. Had xrays of lumbar obtained which showed that she has significant DJD and DDD and scoliosis changes. Standing is worse. Difficult to walk any distance. Difficult going up steps. Is using cane, feels more stable. Hasn't had any falls for 3-4 years. Currently She is present with daughters Sendy and Mallorie in the office today who are helping her with mobility as well as answering questions Gait, balance, admits that she is using a cane with benefit. Not exercising or eating enough protein as she should per daughter. She has been having increased mid and low back chronic pain. Since the season of fall (3-4 months) has increased significantly in pain. Goes across her entire lower and mid back but does not radiate. Uses heating pad. Doesn't typically use pain medication. Doesn't necessarily like to take medications but has gotten to the point that she needs to do something. They installed a stair lift chair in the home recently. Had xrays of lumbar obtained which showed that she has significant DJD and DDD and scoliosis changes. Standing is worse. Difficult to walk any distance. Difficult going up steps. Is using cane, feels more stable. HTN, well controlled, taking medications as prescribed. Recurrent UTI, no obvious recent symptoms PAST MEDICAL HISTORY Diagnosis Date Anxiety Benign essential hypertension Bunion CHF (congestive heart failure) (HCC) Chronic kidney disease, stage III (moderate) ([facility]) Decreased GFR Diverticulosis of colon (without mention of hemorrhage) Dysuria Fatigue Internal hemorrhoids without mention of complication Low back pain Memory loss Mild cognitive impairment Neuralgia and neuritis Nevus, non-neoplastic Osteopenia Overactive bladder PMH - PAST MEDICAL HISTORY OF temporomandibular joint disorders PMH - PAST MEDICAL HISTORY OF 2003 breast cancer - with chemotherapy and right mastectomy Pneumonia, organism unspecified(486) Middle of February Raynaud's syndrome Seborrheic keratosis Secondary cardiomyopathy, unspecified Vitamin D deficiency PAST SURGICAL HISTORY Procedure Laterality Date COLONOSCOPY FLX DX W/COLLJ SPEC WHEN PFRMD 10/14/07 HYSTERECTOMY N/A 1983 Partial PAST SURGICAL HISTORY OF 1991 breast bx PAST SURGICAL HISTORY OF 2003 breast cancer right/chemotherapy PAST SURGICAL HISTORY OF May 2010 Port removed Current Outpatient Medications Medication Sig amLODIPine (NORVASC) 5 mg tablet Take 1 tablet by mouth every afternoon. methocarbamol (ROBAXIN) 500 mg tablet Take 1/2 to 1 tablet twice daily as needed for back pain, spasms metoprolol succinate ER (TOPROL XL) 25 mg 24 hr tablet Take 1 tablet by mouth two times a day. cephALEXin (KEFLEX) 250 mg capsule Take 1 capsule by mouth 3 days per week: Saturday, Saturday, Saturday. lisinopril (ZESTRIL) 10 mg tablet Take 1 tablet by mouth once daily. sertraline (ZOLOFT) 50 mg tablet Take 1 tablet by mouth daily at bedtime. cyanocobalamin 1,000 mcg/mL Inject 1 mL intramuscularly one time a week for 30 days, THEN 1 mL every 2 weeks for 60 days, THEN 1 mL once every month. Walker (ULTRA-LIGHT ROLLATOR) [facility] 1 Device as directed. Dx: balance disorder, chronic back pain, gait disorder X-rays were taken of the Thoracic and Lumbar areas and showed d (more content not included)... Normal [facility] MONTSERRAT WEBB ([id number]) 1940 F Date Time Provider Department 09/16/24 [facility] During your visit today, we recorded the following information about you: Lawson Ramos DO 09/16/2024 9:43 PM Signed Please call one of her daughters and let them know that overall her labs are all stable except her serum creatinine is creeping up again and BUN was elevated. This means that she isn' t drinking enough water daily. Needs 60-80 oz DO Leela Black [place], [place] 09/17/2024 1:14 PM Signed Left message to return call CARLITOS Robb [place], [place] 09/21/2024 9:36 AM Signed Call to Daughter, Mallorie. Notified her of results and recommendations below from Provider. Mallorie verbalized understanding. States they are trying to make her drink fluids the best they can. They will keep after her on this. Raissa Lane MA Allergies As of Date: 09/16/2024 (No Known Allergies) Date Reviewed: 09/16/2024 Reviewed by: Lily Ho LPN - Fully Assessed Reason for Visit: Results [95] Prescriptions as of 09/21/2024 - amLODIPine (NORVASC) 5 mg tablet Take 1 tablet by mouth every afternoon. - methocarbamol (ROBAXIN) 500 mg tablet Take 1/2 to 1 tablet twice daily as needed for back pain, spasms - metoprolol succinate ER (TOPROL XL) 25 mg 24 hr tablet Take 1 tablet by mouth two times a day. - cyanocobalamin 1,000 mcg/mL Inject 1 mL intramuscularly every 2 weeks. - cephALEXin (KEFLEX) 250 mg capsule Take 1 capsule by mouth 3 days per week: Saturday, Saturday, Saturday. - lisinopril (ZESTRIL) 10 mg tablet Take 1 tablet by mouth once daily. - sertraline (ZOLOFT) 50 mg tablet Take 1 tablet by mouth daily at bedtime. - Walker (ULTRA-LIGHT ROLLATOR) misc 1 Device as directed. Dx: balance disorder, chronic back pain, gait disorder X-rays were taken of the Thoracic and Lumbar areas and showed degenerative/arthriti c changes as well as scoliosis of lower thoracic and lumbar spine. dx chronic bilateral low back pain - dexAMETHasone (DEXASOL) 0.1 % ophthalmic solution 1 Drop two times a week. Instill into ear canals, NOT EYES, for eczema of ear canals - metoprolol tartrate, short acting, (LOPRESSOR) 50 mg tablet Take 1 tablet by mouth two times a day. - lidocaine (SALONPAS) 4 % patch Apply 1 application as directed once daily. - metroNIDAZOLE 0.75 % cream Apply to affected area twice daily. For face for rosacea - atorvastatin (LIPITOR) 40 mg tablet Take by mouth. - albuterol HFA (VENTOLIN HFA) 90 mcg/actuation inhaler Inhale 2 Puffs as instructed every 4 hours as needed for Wheezing/Shortness of Breath. - ergocalciferol, vitamin D2, (DRISDOL) 50,000 unit capsule Take 1 capsule by mouth once each week. 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] 12/14/2008 SEBORRHEIC KERATOSIS NOS [L82.1] 12/14/2008 Inflamed seborrheic keratosis [L82.0] 12/14/2008 10/21/2012 Viral warts, unspecified [B07.9] 12/14/2008 08/21/2021 SOLAR LENTIGENES///DYSCHROM IA OTHER [L81.9] 12/14/2008 10/21/2012 ACTINIC DAMAGE///CHR SOLAR SKIN DAMAGE NOS [L57*12/14/2008 01/26/2013 ER+ (estrogen receptor positive status) [Z17.0] 05/02/2010 08/21/2021 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 [D*06/20/2010 Actinic Keratosis (Premalignant AK) [L57.0] 06/21/2010 Tongue, Geographic [K14.1] 06/21/2010 Oral Submucosal Fibrosis/Tongue [K13.5] 06/21/2010 Lipoma: L forearm [D17.9] 06/21/2010 08/21/2021 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] 06/21/2010 08/21/2021 Open wound site: R ear: probable infection [T1*11/12/2010 08/21/2021 Surgical wound infection [T81.49XA] 11/12/2010 08/21/2021 Pyoderma, unspecified [L08.0] 11/12/2010 08/21/2021 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 *11/12/2010 Scar condition and fibrosis of skin [L90.5] 12/02/2010 Solar Lentigo//Solar Lentigines [L81.4] 10/17/2011 Actinic skin damage [L57.8] 10/17/2011 Vitamin D deficiency [E55.9] 05/30/2012 Irritated//Inflamed Seborrheic Keratosis [L82.0]10/21/2012 08/21/2021 Postinflammatory skin changes [R23.8] 01/26/2013 Tongue lesion [K14.8] 01/26/2013 Osteoporosis [M81.0] 06/16/2013 History of breast cancer in female [Z85.3] 06/16/2013 Hypertension, essential [I10] 10/13/2019 Forgetfulness [R68.89] 10/13/2019 Dementia without behavioral disturbance (HCC) [*12/08/2019 08/21/2021 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 [facility] MONTSERRAT WEBB ([id number]) 1940 F Date Time Provider Department 09/16/24 [facility] During your visit today, we recorded the following information about you: Lucia Zhang MA 09/16/2024 4:20 PM Signed Prior Authorization has been completed online at [employer] for methocarbamol, will await response. [id number] Please keep encounter open until final decision has been received and documented from insurance company. Lucia Poole MA, MA 09/16/2024 4:34 PM Signed PA approved till 11/10/2099 left for patient Lucia Zhang MA Allergies As of Date: 09/16/2024 (No Known Allergies) Date Reviewed: 09/16/2024 Reviewed by: Lily Ho LPN - Fully Assessed Reason for Visit: Insurance Authorization [[id number]] Cmt: methocarbamol Prescriptions as of 09/16/2024 - amLODIPine (NORVASC) 5 mg tablet Take 1 tablet by mouth every afternoon. - methocarbamol (ROBAXIN) 500 mg tablet Take 1/2 to 1 tablet twice daily as needed for back pain, spasms - metoprolol succinate ER (TOPROL XL) 25 mg 24 hr tablet Take 1 tablet by mouth two times a day. - cyanocobalamin 1,000 mcg/mL Inject 1 mL intramuscularly every 2 weeks. - cephALEXin (KEFLEX) 250 mg capsule Take 1 capsule by mouth 3 days per week: Saturday, Saturday, Saturday. - lisinopril (ZESTRIL) 10 mg tablet Take 1 tablet by mouth once daily. - sertraline (ZOLOFT) 50 mg tablet Take 1 tablet by mouth daily at bedtime. - Walker (ULTRA-LIGHT ROLLATOR) misc 1 Device as directed. Dx: balance disorder, chronic back pain, gait disorder X-rays were taken of the Thoracic and Lumbar areas and showed degenerative/arthriti c changes as well as scoliosis of lower thoracic and lumbar spine. dx chronic bilateral low back pain - dexAMETHasone (DEXASOL) 0.1 % ophthalmic solution 1 Drop two times a week. Instill into ear canals, NOT EYES, for eczema of ear canals - metoprolol tartrate, short acting, (LOPRESSOR) 50 mg tablet Take 1 tablet by mouth two times a day. - lidocaine (SALONPAS) 4 % patch Apply 1 application as directed once daily. - metroNIDAZOLE 0.75 % cream Apply to affected area twice daily. For face for rosacea - atorvastatin (LIPITOR) 40 mg tablet Take by mouth. - albuterol HFA (VENTOLIN HFA) 90 mcg/actuation inhaler Inhale 2 Puffs as instructed every 4 hours as needed for Wheezing/Shortness of Breath. - ergocalciferol, vitamin D2, (DRISDOL) 50,000 unit capsule Take 1 capsule by mouth once each week. 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] 12/14/2008 SEBORRHEIC KERATOSIS NOS [L82.1] 12/14/2008 Inflamed seborrheic keratosis [L82.0] 12/14/2008 10/21/2012 Viral warts, unspecified [B07.9] 12/14/2008 08/21/2021 SOLAR LENTIGENES///DYSCHROM IA OTHER [L81.9] 12/14/2008 10/21/2012 ACTINIC DAMAGE///CHR SOLAR SKIN DAMAGE NOS [L57*12/14/2008 01/26/2013 ER+ (estrogen receptor positive status) [Z17.0] 05/02/2010 08/21/2021 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 [D*06/20/2010 Actinic Keratosis (Premalignant AK) [L57.0] 06/21/2010 Tongue, Geographic [K14.1] 06/21/2010 Oral Submucosal Fibrosis/Tongue [K13.5] 06/21/2010 Lipoma: L forearm [D17.9] 06/21/2010 08/21/2021 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] 06/21/2010 08/21/2021 Open wound site: R ear: probable infection [T1*11/12/2010 08/21/2021 Surgical wound infection [T81.49XA] 11/12/2010 08/21/2021 Pyoderma, unspecified [L08.0] 11/12/2010 08/21/2021 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 *11/12/2010 Scar condition and fibrosis of skin [L90.5] 12/02/2010 Solar Lentigo//Solar Lentigines [L81.4] 10/17/2011 Actinic skin damage [L57.8] 10/17/2011 Vitamin D deficiency [E55.9] 05/30/2012 Irritated//Inflamed Seborrheic Keratosis [L82.0]10/21/2012 08/21/2021 Postinflammatory skin changes [R23.8] 01/26/2013 Tongue lesion [K14.8] 01/26/2013 Osteoporosis [M81.0] 06/16/2013 History of breast cancer in female [Z85.3] 06/16/2013 Hypertension, essential [I10] 10/13/2019 Forgetfulness [R68.89] 10/13/2019 Dementia without behavioral disturbance (HCC) [*12/08/2019 08/21/2021 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 Normal [facility] Cobalamin (Vitamin B12) [Mas s/Vol]on 09-16-2024 Interpretation and review of laboratory results Abnormal [facility] Comprehensive metabolic 2000 panelon 09-16-2024 Albumin [Mass/Vol] 3.7 g/dL Low 3.9-4.9 [facility] Comment on above: Order Comment: Speci men Type: BLOOD SPECIMENOrdering Facility: [facility] Address: [address] [place] [address] Performed By: #### 2 4323-8, 71669-0, 3016-3, LIPNF ####[facility] LABCLIA [id number] [place] [address] [place] ALP [Catalytic activity/Vol] 88 U/L Normal 34-123 [facility] Comment on above: Order Comment: Speci men Type: BLOOD SPECIMENOrdering Facility: [facility] Address: [address] [place] [address] Performed By: #### 2 4323-8, 72637-2, 6-3, LIPNF ####[facility] LABCLIA [id number] [place] [address] [place] ALT [Catalytic activity/Vol] 13 U/L Normal 7-38 [facility] Comment on above: Order Comment: Speci men Type: BLOOD SPECIMENOrdering Facility: [facility] Address: [address] [place] [address] Performed By: #### 2 4323-8, 31846-8, 3016-3, LIPNF ####[facility] LABCLIA [id number] [place] [address] [place] Anion gap [Moles/Vol] 11 mmol/L Normal 8-15 [facility] Comment on above: Order Comment: Speci men Type: BLOOD SPECIMENOrdering Facility: [facility] Address: [address] [place] [address] Performed By: #### 2 4323-8, 44578-8, 6-3, LIPNF ####[facility] LABCLIA [id number] [place] [address] [place] AST [Catalytic activity/Vol] 19 U/L Normal 13-35 [facility] Comment on above: Order Comment: Speci men Type: BLOOD SPECIMENOrdering Facility: [facility] Address: [address] [place] [address] Performed By: #### 2 4323-8, 67129-4, 6-3, LIPNF ####[facility] LABCLIA [id number] [place] [address] [place] Bilirubin [Mass/Vol] 0.3 mg/dL Normal 0.2-1.3 [facility] Comment on above: Order Comment: Speci men Type: BLOOD SPECIMENOrdering Facility: [facility] Address: [address] [place] [address] Performed By: #### 2 4323-8, 13700-1, 6-3, LIPNF ####[facility] LABCLIA [id number] [place] [address] [place] Calcium [Mass/Vol] 9.1 mg/dL Normal 8.5-10.2 [facility] Comment on above: Order Comment: Speci men Type: BLOOD SPECIMENOrdering Facility: [facility] Address: [address] [place] [address] Performed By: #### 2 4323-8, 47331-2, 6-3, LIPNF ####[facility] LABCLIA [id number] [place] [id number] [place] Chloride [Moles/Vol] 104 mmol/L Normal 98-107 [facility] Comment on above: Order Comment: Speci men Type: BLOOD SPECIMENOrdering Facility: [facility] Address: [address] [place] [address] Performed By: #### 2 4323-8, 64303-3, 3016-3, LIPNF ####[facility] LABCLIA [id number] [place] [address] [place] CO2 [Moles/Vol] 25 mmol/L Normal 22-30 [facility] Comment on above: Order Comment: Speci men Type: BLOOD SPECIMENOrdering Facility: [facility] Address: [address] [place] [address] Performed By: #### 2 4323-8, 10352-0, 6-3, LIPNF ####[facility] LABCLIA [id number] [place] [address] [place] Creatinine [Mass/Vol] 0.97 mg/dL High 0.58-0.96 [facility] Comment on above: Order Comment: Speci men Type: BLOOD SPECIMENOrdering Facility: [facility] Address: [address] [place] [address] Performed By: #### 2 4323-8, 47726-5, 3016-3, LIPNF ####[facility] LABCLIA [id number] [place] [address] [place] Creatinine and Glomerular filtration rate.predicted panel (S/P/Bld) 57 mL/min/1.73m??? Low >=60 [facility] Comment on above: Order Comment: Speci men Type: BLOOD SPECIMENOrdering Facility: [facility] Address: [address] [place] [address] Result Comment: Nicole mated Glomerular Filtration Rate (eGFR) is calculated using the 2020 CKD-EPI creatinine equation. This equation utilizes serum creatinine, sex, and age as parameters. The creatinine assay has traceable calibration to isotope dilution-mass spectrometry. Refer to KDIGO guidelines for clinical interpretation. In patients with unstable renal function, e.g. those with acute kidney injury, the eGFR may not accurately reflect actual GFR. Performed By: #### 2 4323-8, 79165-0, 3015-3, LIPNF ####[facility] LABCLIA [id number] [address] [address] [place] Glucose [Mass/Vol] 87 mg/dL Normal 74-99 [facility] Comment on above: Order Comment: Speci men Type: BLOOD SPECIMENOrdering Facility: [facility] Address: [address] [place] [address] Result Comment: The [place] Diabetes Association (ADA) provides guidance for cutoff values for fasting glucose and random glucose. The ADA defines fasting as no caloric intake for at least 8 hours. Fasting plasma glucose results between 100 to 125 mg/dL indicate increased risk for diabetes (prediabetes). Fasting plasma glucose results greater than or equal to 126 mg/dL meet the criteria for diagnosis of diabetes. In the absence of unequivocal hyperglycemia, results should be confirmed by repeat testing. In a patient with classic symptoms of hyperglycemia or hyperglycemic crisis, random plasma glucose results greater than or equal to 200 mg/dL meet the criteria for diagnosis of diabetes. Reference: Standards of Medical Care in Diabetes 2016, [place] Diabetes Association. Diabetes Care. 2016.39(Suppl 1). Performed By: #### 2 4323-8, , 3016-01, LIPNF ####[facility] LABCLIA [id number] [address] [address] [place] Potassium [Moles/Vol] 3.9 mmol/L Normal 3.7-5.1 [facility] Comment on above: Order Comment: Nicolei men Type: BLOOD SPECIMENOrdering Facility: [facility] Address: [address] [place] [address] Performed By: #### 2 4323-8, , 3, LIPNF ####[facility] LABCLIA [id number] [address] [address] [place] Protein [Mass/Vol] 6.7 g/dL Normal 6.3-8.0 [facility] Comment on above: Order Comment: Speci men Type: BLOOD SPECIMENOrdering Facility: [facility] Address: [address] [place] [address] Performed By: #### 2 4323-8, , 3015-3, LIPNF ####[facility] LABCLIA [id number] [place] [address] [place] Sodium [Moles/Vol] 140 mmol/L Normal 136-144 [facility] Comment on above: Order Comment: Speci men Type: BLOOD SPECIMENOrdering Facility: [facility] Address: [address] [place] [address] Performed By: #### 2 4323-8, , 3, LIPNF ####[facility] LABCLIA [id number] [place] [address] [place] Urea nitrogen [Mass/Vol] 24 mg/dL High 7- [facility] Comment on above: Order Comment: Speci men Type: BLOOD SPECIMENOrdering Facility: [facility] Address: [address] [place] [address] Performed By: #### 2 4323-8, , 3, LIPNF ####[facility] LABCLIA [id number] [place] [address] [place] HbA1c (Bld)on 09-16-2024 Average glucose Estimated from glycated hemoglobin (Bld) [Mass/Vol] 114 mg/dL Normal [facility] Comment on above: Order Comment: Speci men Type: BLOOD SPECIMENOrdering Facility: [facility] Address: [address] [place] [address] Result Comment: eAG: (Estimated average glucose) is a calculated value from HgbA1c and is bank representative of the average blood glucose level in the last 2-3 month period. Performed By: #### 5 5454-3 ####[facility] LABCLIA [id number] [place] [address] [place] HbA1c (Bld) [Mass fraction] 5.6 % Normal 4.3-5.6 [facility] Comment on above: Order Comment: Jaswant blancas Type: BLOOD SPECIMENOrdering Facility: [facility] Address: [address] [place] [address] Result Comment: [place] Diabetes Association guidelines indicate that patients with HgbA1c in the range 5.7-6.4% are at increased risk for development of diabetes, and intervention by lifestyle modification may be beneficial. HgbA1c greater or equal to 6.5% is considered diagnostic of diabetes. Performed By: #### 5 5454-3 ####[facility] LABCLIA [id number] [address] [place] LIPID PANEL, NONFASTINGon Cholesterol [Mass/Vol] 279 mg/dL High <200 [facility] Comment on above: Order Comment: Jaswant blancas Type: BLOOD SPECIMENOrdering Facility: [facility] Address: [address] [place] [address] Result Comment: <200 mg/dL, Desirable 200-239 mg/dL, Borderline high >239 mg/dL, High Performed By: #### 2 4323-8, 01567-8, 6-3, LIPNF ####[facility] LABCLIA [id number] [address] [place] HDL CHOLESTEROL, NF 47 mg/dL Normal >39 [facility] Comment on above: Order Comment: Jaswant blancas Type: BLOOD SPECIMENOrdering Facility: [facility] Address: [address] [place] [address] Result Comment: 40-5 9 mg/dL, Acceptable >59 mg/dL, High: Negative risk factor for coronary heart disease <40 mg/dL, Low: Positive risk factor for coronary heart disease Performed By: #### 2 4323-8, 04580-1, 6-3, LIPNF ####[facility] LABCLIA [id number] [address] [address] [place] [address] [place] LDL CHOLESTEROL, NF 206 mg/dL High <100 [facility] Comment on above: Order Comment: Jaswant blancas Type: BLOOD SPECIMENOrdering Facility: [facility] Address: [address] [place] [address] Result Comment: <100 mg/dL, Optimal 100-129 mg/dL, Near optimal/above optimal 130-159 mg/dL, Borderline high 160-189 mg/dL, High >189 mg/dL, Very high Secondary prevention optimal LDL Cholesterol levels are recommended to be < 70 mg/dL Performed By: #### 2 4323-8, 09277-3, 6-3, LIPNF ####[facility] LABCLIA [id number] [place] [address] [place] LDL/HDL RATIO, NF 4.38 mg/dL High <2.54 [facility] Comment on above: Order Comment: Jaswant blancas Type: BLOOD SPECIMENOrdering Facility: [facility] Address: [address] [place] [address] Result Comment: Refe rence: 1. National Cholesterol Education Program ATP III Guideline At-A-Glance Quick Desk Reference: National Heart, Lung, and Blood [place]. National Institutes of Health. 2001: NIH Publication No. 01-3305. 2. An International Atherosclerosis Society position paper: global recommendations for the management of dyslipidemia: executive summary, Atherosclerosis. 2014: 232(2):410-413. Performed By: #### 2 4323-8, 84812-8, 6-3, LIPNF ####[facility] LABCLIA [id number] [place] [address] [place] NON HDL CHOL, NF 232 mg/dL High <130 [facility] Comment on above: Order Comment: Jaswant blancas Type: BLOOD SPECIMENOrdering Facility: [facility] Address: [address] [place] [address] Result Comment: <130 mg/dL, Optimal 130-159 mg/dL, Near optimal/above optimal 160-189 mg/dL, Borderline high 190-219 mg/dL, High >219 mg/dL, Very high Secondary prevention optimal non HDL Cholesterol levels are recommended to be <100 mg/dL Performed By: #### 2 4323-8, 01332-1, 6-3, LIPNF ####[facility] LABCLIA [id number] [place] [address] [place] T CHOL/HDL RATIO NF 5.94 mg/dL High <5.10 [facility] Comment on above: Order Comment: Speci men Type: BLOOD SPECIMENOrdering Facility: [facility] Address: [address] [place] [address] Performed By: #### 2 4323-8, 58171-6, 3015-3, LIPNF ####[facility] LABCLIA [id number] [place] [address] [place] TRIGLYCERIDES, NF 131 mg/dL Normal <150 [facility] Comment on above: Order Comment: Speci men Type: BLOOD SPECIMENOrdering Facility: [facility] Address: [address] [place] [address] Result Comment: <150 mg/dL, Normal 150-199 mg/dL, Borderline high 200-499 mg/dL, High >499 mg/dL, Very high Performed By: #### 2 4323-8, 17555-5, 3015-3, LIPNF ####[facility] LABCLIA [id number] [place] [address] [place] VLDL CHOLESTEROL, NF 26 mg/dL Normal <30 [facility] Comment on above: Order Comment: Speci men Type: BLOOD SPECIMENOrdering Facility: [facility] Address: [address] [place] [address] Performed By: #### 2 4323-8, 16516-6, 3015-3, LIPNF ####[facility] LABCLIA [id number] [place] [address] [place] Magn[facility] Magnesium [Mass/Vol] 1.9 mg/dL Normal 1.7-2.3 [facility] Comment on above: Order Comment: Speci men Type: BLOOD SPECIMENOrdering Facility: [facility] Address: [address] [place] [address] Performed By: #### 2 4323-8, 71527-3, 3016-3, LIPNF ####[facility] LABCLIA [id number] [place] [address] [place] TSH SerPl-aCncon 09-16-2024 TSH Qn 2.510 m[IU]/L Normal 0.270-4.200 [facility] Comment on above: Order Comment: Speci men Type: BLOOD SPECIMENOrdering Facility: [facility] Address: [address] [place] [address] Performed By: #### 2 4323-8, 03269-2, 3016-3, LIPNF ####[facility] LABCLIA [id number] [place] [address] [place] Urinalysis complete panel (U )on 09-16-2024 Bacteria LM.HPF (Urine sed) [#/Area] Negative Normal Negative [facility] Comment on above: Order Comment: Speci men Type: URINE SPECIMENOrdering Facility: [facility] Address: [address] [place] [address] Performed By: #### 2 4356-8 ####[facility] LABCLIA [id number] [place] [address] [place] Bilirubin Ql (U) Negative Normal Negative [facility] Comment on above: Order Comment: Speci men Type: URINE SPECIMENOrdering Facility: [facility] Address: [address] [place] [address] Performed By: #### 2 4356-8 ####[facility] LABCLIA [id number] [place] [address] [place] Clarity (Unsp spec) Clear Normal Clear [facility] Comment on above: Order Comment: Speci men Type: URINE SPECIMENOrdering Facility: [facility] Address: [address] [place] [address] Performed By: #### 2 4356-8 ####[facility] LABCLIA [id number] [place] [address] [place] Color (U) Yellow Normal Yellow [facility] Comment on above: Order Comment: Speci men Type: URINE SPECIMENOrdering Facility: [facility] Address: [address] [place] [address] Performed By: #### 2 4356-8 ####[facility] LABCLIA [id number] [place] [address] [place] Epithelial cells LM.HPF (Urine sed) [#/Area] Few Normal [facility] Comment on above: Order Comment: Speci men Type: URINE SPECIMENOrdering Facility: [facility] Address: [address] [place] [address] Performed By: #### 2 4356-8 ####[facility] LABCLIA [id number] [place] [address] [place] Glucose Test strip (U) [Mass/Vol] Negative Normal Negative [facility] Comment on above: Order Comment: Speci men Type: URINE SPECIMENOrdering Facility: [facility] Address: [address] [place] [address] Performed By: #### 2 4356-8 ####[facility] LABCLIA [id number] [place] [address] [place] Hemoglobin Ql (U) Negative Normal Negative [facility] Comment on above: Order Comment: Speci men Type: URINE SPECIMENOrdering Facility: [facility] Address: [address] [place] [address] Performed By: #### 2 4356-8 ####[facility] LABCLIA [id number] [place] [address] [place] Hyaline casts (Urine sed) [#/Area] 0 /[LPF] Normal 0 /LPF [facility] Comment on above: Order Comment: Speci men Type: URINE SPECIMENOrdering Facility: [facility] Address: [address] [place] [address] Performed By: #### 2 4356-8 ####[facility] LABCLIA [id number] [place] [address] [place] Ketones Ql (U) Negative Normal Negative [facility] Comment on above: Order Comment: Speci men Type: URINE SPECIMENOrdering Facility: [facility] Address: [address] [place] [address] Performed By: #### 2 4356-8 ####[facility] LABCLIA [id number] [place] [address] [place] Leukocyte esterase Test strip Ql (U) Negative Normal Negative [facility] Comment on above: Order Comment: Speci men Type: URINE SPECIMENOrdering Facility: [facility] Address: [address] [place] [address] Performed By: #### 2 4356-8 ####[facility] LABCLIA [id number] [place] [address] [place] Nitrite Ql (U) Negative Normal Negative [facility] Comment on above: Order Comment: Speci men Type: URINE SPECIMENOrdering Facility: [facility] Address: [address] [place] [address] Performed By: #### 2 4356-8 ####[facility] LABCLIA [id number] [place] [address] [place] pH (U) 6.5 [pH] Normal <8.5 [facility] Comment on above: Order Comment: Speci men Type: URINE SPECIMENOrdering Facility: [facility] Address: [address] [place] [address] Performed By: #### 2 4356-8 ####[facility] LABCLIA [id number] [place] [address] [place] Protein (U) [Mass/Vol] Negative Normal Negative [facility] Comment on above: Order Comment: Speci men Type: URINE SPECIMENOrdering Facility: [facility] Address: [address] [place] [address] Performed By: #### 2 4356-8 ####[facility] LABIA [id number] [place] [address] [place] RBC LM.HPF (Urine sed) [#/Area] 0-2 /HPF Normal 0-2 /HPF [facility] Comment on above: Order Comment: Speci men Type: URINE SPECIMENOrdering Facility: [facility] Address: [address] [place] [address] Performed By: #### 2 4356-8 ####[facility] [id number] [place] [address] [place] Specific gravity (U) [Rel density] 1.020 Normal 1.005-1.030 [facility] Comment on above: Order Comment: Speci men Type: URINE SPECIMENOrdering Facility: [facility] Address: [address] [place] [address] Performed By: #### 2 4356-8 ####[facility] LABIA [id number] [place] [address] [place] Urobilinogen Ql (U) 1.0 EU/dL Normal 0.2-1.0 EU/dL [facility] Comment on above: Order Comment: Speci men Type: URINE SPECIMENOrdering Facility: [facility] Address: [address] [place] [address] Performed By: #### 2 4356-8 ####[facility] LABIA [id number] [place] [address] [place] WBC LM.HPF (Urine sed) [#/Area] 0-5 /HPF Normal 0-5 /HPF [facility] Comment on above: Order Comment: Speci men Type: URINE SPECIMENOrdering Facility: [facility] Address: [address] [place], [place] [address] Performed By: #### 2 4356-8 ####[facility] LABCLIA [id number] [place] [address] [place] VITAMIN B12on 09-16-2024 Cobalamin (Vitamin B12) [Mass/Vol] 1736 pg/mL High 232 - 1245 pg/mL [facility] Vit B12 SerPl-mCncon 024 Cobalamin (Vitamin B12) [Mass/Vol] 1736 pg/mL High 232-1245 [facility] Comment on above: Order Comment: Speci men Type: BLOOD SPECIMENOrdering Facility: [facility] Address: [address] [place] [address] Performed By: #### 2 132-9 ####[facility] LABCLIA [id number] [place] [address] [place] 12 Lead EKGon 05-05-2024 12 Lead EKG [facility] [address] [place] [address] 12 Lead EKG 05/05/24 1442 MR#: [id number] Acct: [id number] Name: MONTSERRAT WEBB Rep #: [id number] : 1940 83 From: Michael Diaz MD Attending Dr: Status: DEP ER Ordering Dr: Pancho Cee MD Date: 05/05/24 Location: ED Sex: F C Admitted: Test Reason : SYNCOPE Blood Pressure : / mmHG Vent. Rate : 060 BPM Atrial Rate : 060 BPM P-R Int : 160 ms QRS Dur : 074 ms QT Int : 448 ms P-R-T Axes : 018 -21 050 degrees QTc Int : 448 ms Normal sinus rhythm Minimal voltage criteria for LVH, may be normal variant ( R in aVL ) Nonspecific T wave abnormality Abnormal ECG Confirmed by Michael Diaz ([id number]), fan mail editor JIGNA SINGH ([id number]) on 05/06/2024 9:20:37 AM Referred By: Confirmed By:Michael Diaz 05/06/24919 Date Michael Diaz MD CC: Dr. Lawson Ramos, DO; Dr. Pancho Cee MD Signed Normal [facility] Basic Metabolic Profile (BMP )on 05-05-2024 BUN/CRE 16.7 RATIO Normal 10-20 [facility] Comment on above: Performed By: #### L 100.0100, L300.4310, L500.2500, L300.3900 #### [facility] [address] [place], [address] CA,Total 8.3 mg/dL Low 8.5-10.1 [facility] Comment on above: Performed By: #### L 100.0100, L300.4310, L500.2500, L300.3900 #### [facility] [address] [place], [address] Chloride [Moles/Vol] 111 mmol/L High 98-107 [facility] Comment on above: Performed By: #### L 100.0100, L300.4310, L500.2500, L300.3900 #### [facility] [address] [place], [address] CO2 [Moles/Vol] 22.0 mmol/L Normal 21.0-32.0 [facility] Comment on above: Performed By: #### L 100.0100, L300.4310, L500.2500, L300.3900 #### [facility] [address] [place], [address] Creatinine [Mass/Vol] 1.20 mg/dL High 0.55-1.02 [facility] Comment on above: Result Comment: The validity of the calculated GFR GFRAA in patients over 70 years has not been determined. Clinical correlation is essential. Performed By: #### L 100.0100, L300.4310, L500.2500, L300.3900 #### [facility] [address] [place], [address] ECRCL 32.96 ml/min Normal [facility] Comment on above: Performed By: #### L 100.0100, L300.4310, L500.2500, L300.3900 #### [facility] [address] [place], [address] EST GFR - AA 55 mL/min Low >60 [facility] Comment on above: Result Comment: Afri can [place] GFR Calc Performed By: #### L 100.0100, L300.4310, L500.2500, L300.3900 #### [facility] [address] [place], [address] GAP 6 Normal 5-15 [facility] Comment on above: Performed By: #### L 100.0100, L300.4310, L500.2500, L300.3900 #### [facility] [address] [place], [address] GFR/1.73 sq M.predicted among non-blacks MDRD (S/P/Bld) [Vol rate/Area] 45 mL/min/{1.73_m2} Low >60 [facility] Comment on above: Result Comment: Non- GFR Calc Performed By: #### L 100.0100, L300.4310, L500.2500, L300.3900 #### [facility] [address] [place], [address] Glucose [Mass/Vol] 126 mg/dL High 74-106 [facility] Comment on above: Result Comment: Fast ing Glucose result greater than or equal to 126 mg/dL suggests DIABETES MELLITUS per A.D.A. criteria. Performed By: #### L 100.0100, L300.4310, L500.2500, L300.3900 #### [facility] [address] [place], [address] Potassium [Moles/Vol] 4.0 mmol/L Normal 3.5-5.1 [facility] Comment on above: Result Comment: Slig ht Hemolysis, Result may be falsely increased. Performed By: #### L 100.0100, L300.4310, L500.2500, L300.3900 #### [facility] [address] [place], [address] Sodium [Moles/Vol] 139 mmol/L Normal 136-145 [facility] Comment on above: Performed By: #### L 100.0100, L300.4310, L500.2500, L300.3900 #### [facility] [address] [place], [address] Urea nitrogen [Mass/Vol] 20 mg/dL High 7-18 [facility] Comment on above: Performed By: #### L 100.0100, L300.4310, L500.2500, L300.3900 #### [facility] [address] [place], [address] CBC W/Diff, Automatedon 2 -2023 Absolute Lymph 1.62 X10 3/uL Normal 0.83-4.51 [facility] Comment on above: Performed By: #### L 100.0100, L300.4310, L500.2500, L300.3900 #### [facility] [address] [place], [address] Absolute Neut 3.8 X10 3/uL Normal 2.0-7.7 [facility] Comment on above: Performed By: #### L 100.0100, L300.4310, L500.2500, L300.3900 #### [facility] [address] [place], [address] Basophils/100 WBC (Bld) 1.1 % High 0-1 [facility] Comment on above: Performed By: #### L 100.0100, L300.4310, L500.2500, L300.3900 #### [facility] [address] [place], [address] Eosinophils/100 WBC (Bld) 2.4 % Normal 0-5 [facility] Comment on above: Performed By: #### L 100.0100, L300.4310, L500.2500, L300.3900 #### [facility] [address] [place], [address] Erythrocyte distribution width (RBC) [Ratio] 13.5 % Normal 11.6-14.6 [facility] Comment on above: Performed By: #### L 100.0100, L300.4310, L500.2500, L300.3900 #### [facility] [address] [place], [address] Hematocrit (Bld) [Volume fraction] 44.6 % Normal 37-47 [facility] Comment on above: Performed By: #### L 100.0100, L300.4310, L500.2500, L300.3900 #### [facility] [address] [place], [address] Hemoglobin (Bld) [Mass/Vol] 14.5 g/dL Normal 12.0-15.0 [facility] Comment on above: Performed By: #### L 100.0100, L300.4310, L500.2500, L300.3900 #### [facility] [address] [place], [address] IG% 0.600 Normal 0.0-0.9 [facility] Comment on above: Result Comment: IG% - Immature Granulocytes (promyelocytes, myelocytes and metamyelocytes) > 1% indicates that a LEFT SHIFT is Present. Performed By: #### L 100.0100, L300.4310, L500.2500, L300.3900 #### [facility] [address] [place], [address] Lymphocytes/100 WBC (Bld) 26.3 % Normal 19-41 [facility] Comment on above: Performed By: #### L 100.0100, L300.4310, L500.2500, L300.3900 #### [facility] [address] [place], [address] MCH (RBC) [Entitic mass] 29.8 pg Normal 27.0-32.0 [facility] Comment on above: Performed By: #### L 100.0100, L300.4310, L500.2500, L300.3900 #### [facility] [address] [place], [address] MCHC (RBC) [Mass/Vol] 32.5 g/dL Normal 32-36 [facility] Comment on above: Performed By: #### L 100.0100, L300.4310, L500.2500, L300.3900 #### [facility] [address] [place], [address] MCV (RBC) [Entitic vol] 91.6 fL Normal 81-99 [facility] Comment on above: Performed By: #### L 100.0100, L300.4310, L500.2500, L300.3900 #### [facility] [address] [place], [address] Monocytes/100 WBC (Bld) 8.3 % Normal 0-10 [facility] Comment on above: Performed By: #### L 100.0100, L300.4310, L500.2500, L300.3900 #### [facility] [address] [place], [address] Neutrophils/100 WBC (Bld) 61.3 % Normal 47-70 [facility] Comment on above: Performed By: #### L 100.0100, L300.4310, L500.2500, L300.3900 #### [facility] [address] [place], [address] Nucleated RBC (Bld) [#/Vol] 0 10*3/uL Normal 0-5 [facility] Comment on above: Performed By: #### L 100.0100, L300.4310, L500.2500, L300.3900 #### [facility] [address] [place], [address] Platelet mean volume (Bld) [Entitic vol] 10.3 fL Normal 6.2-12.0 [facility] Comment on above: Performed By: #### L 100.0100, L300.4310, L500.2500, L300.3900 #### [facility] [address] [place], [address] Platelets (Bld) [#/Vol] 207 10*3/uL Normal 150-450 [facility] Comment on above: Performed By: #### L 100.0100, L300.4310, L500.2500, L300.3900 #### [facility] [address] [place], [address] RBC (Bld) [#/Vol] 4.87 10*6/uL Normal 4.2-5.4 [facility] Comment on above: Performed By: #### L 100.0100, L300.4310, L500.2500, L300.3900 #### [facility] [address] [place], [address] RDW SD 45.8 fl High 35.1-43.9 [facility] Comment on above: Performed By: #### L 100.0100, L300.4310, L500.2500, L300.3900 #### [facility] [address] [place], [address] WBC (Bld) [#/Vol] 6.2 10*3/uL Normal 4.4-11.0 [facility] Comment on above: Performed By: #### L 100.0100, L300.4310, L500.2500, L300.3900 #### [facility] [address] [place], [address] Emergency Department Summary on 05-05-2024 Emergency Department Summary [facility] Medical Records Department [address] [place] [address] Emergency Department Summary 05/05/24 MR#: [id number] Acct: [id number] Name: MONTSERRAT WEBB Rep #: [id number] : 1940 83 From: Pancho Cee MD PCP: Dr. Lawson Ramos, DO Status:REG ER Location: ED HPI History of Present Illness Chief Complaint: Syncope Detail of Chief Complaint: Syncopal episode Informant: patient, family and other Onset/Context/Timing Onset: Hours Context: Sudden Onset Timing: Intermittent Quality: Patient had syncope and collapse Location: Sitting garage with friends and family for 2 hours Current Severity: Gone Maximum Severity: Severe Worsened by: Unknown per patient and family Relieved by: Not applicable Associated Symptoms Associated Symptoms: Diaphoresis, nausea, bradycardia Narrative Narrative: Patient is an 83-year-old with history of ischemic colitis, stenosis of the right carotid artery, prior syncopal episodes and breast cancer who was seen in garage. She was been sitting for 2 hours. Apparently was muggy. She knew she was going to pass out. Reportedly she had a slow heart rate. She vomited and was diaphoretic and clammy. There was no abnormal seizure activity. Patient had recent surgery with removal of skin cancer anterior upper chest. She denies fever, chills night sweats. Denies headache, visual, ocular auditory symptoms. Denies chest pain, shortness of breath, pain with breathing. She denies abdominal pain, black or maroon stool. She denies paresthesia, anesthesia or motor weakness. Prior similar symptoms: Yes Recent Illness/Hospitalizati on: No PFSH PFS Medical History CHF (congestive heart failure) History of breast cancer Dementia Over 65 years old COVID-19 Rosacea Viral warts Lipoma Solar lentigo Cerebral microvascular disease Borderline abnormal TFTs Tongue lesion Inflamed seborrheic keratosis Late onset Alzheimer's dementia without behavioral disturbance Actinic skin damage Vitamin D deficiency Hx of breast cancer Hypertension Osteoporosis Breast cancer Essential hypertension Home Medications ???Medication ???Instructions ???Recorded ???Last Taken ???Type aspirin 81 mg chewable tablet 81 mg PO DAILY preventative 05/25/22 02/26/24 History cholecalciferol (vitamin D3) 125 125 mcg PO DAILY suppliment 05/25/22 02/26/24 History mcg (5,000 unit) tablet (Vitamin D3) sertraline 50 mg tablet 100 mg PO QHS depression 12/17/22 Unknown History cephalexin 250 mg capsule 250 mg PO .1 daily MoWedFri 02/26/24 02/26/24 History cyanocobalamin (vitamin B-12) 1,000 mcg IM QMONTH 02/26/24 Unknown History 1,000 mcg/mL injection solution krill oil 500 mg capsule 1,000 mg PO DAILY SUPPLEMENT 02/26/24 02/26/24 History lidocaine 5 % topical patch See Rx Instructions topical 02/26/24 Unknown History .COMPLEX methocarbamol 500 mg tablet 250 - 500 mg PO BID PRN PRN muscle 02/26/24 02/26/24 History spasm turmeric 1 cap PO DAILY SUPPLEMENT 02/26/24 02/26/24 History amlodipine 5 mg tablet 5 mg PO DAILY 30 days #30 tabs 02/27/24 Unknown Rx lisinopril 10 mg tablet 10 mg PO DAILY 30 days #30 tabs 02/27/24 Unknown Rx metoprolol tartrate 25 mg tablet 25 mg PO BID 30 days #60 tabs 02/27/24 Unknown Rx Allergy/AdvReac Type Severity Reaction Status Date / Time No Known Allergies Allergy Verified 02/26/24 10:26 Surgical History H/O mastectomy Social History household members: spouse housing: house Smoking Status: Never smoker alcohol intake: never substance use type: does not use ROS ROS ED Constitutional Constitutional ED: Denies chills, fever(s), subjective or sweats Eyes Eyes: Denies blurry vision, change in vision or diplopia ENT ENT ED: Denies ear pain, rhinorrhea or sore throat Cardiovascular Cardiovascular: Denies chest pain or palpitations Respiratory/Chest Respiratory/Chest: Denies cough, dyspnea or dyspnea on exertion Gastrointestinal Gastrointestinal: Reports nausea and vomiting; Denies abdominal pain Neurologic Neurologic: Denies headache(s) or paresthesias Hematologic/Lymphatic Hematologic/Lymphatic : Reports systems reviewed and no addt'l complaints, except as documented EXAM Physical Exam Const Vital Signs: 05/05/24 14:24 05/05/24 14:28 05/05/24 14:46 Temperature 96.5 F L Temperature Source Temporal Pulse Rate 90 Respiratory Rate 16 Blood Pressure 148/72 H Blood Pressure Mean 97 Pulse Ox 97 Oxygen Delivery Method Room Air Room Air Positive well nourished and well developed General Appearance ED: well developed and NAD; Negative for cyanotic, diaphoretic o (more content not included)... Normal [facility] Partial Thromboplast Timeon 05-05-2024 aPTT Coag (Bld) [Time] 20.6 s Low 24.1-36.2 [facility] Comment on above: Performed By: #### L 100.0100, L300.4310, L500.2500, L300.3900 #### [facility] [address] [place], [address] Prothrombin Time w/INRon INR Coag (PPP) [Relative time] 1.1 {INR} Normal [facility] Comment on above: Performed By: #### L 100.0100, L300.4310, L500.2500, L300.3900 #### [facility] [address] [place], [address] PT Coag (PPP) [Time] 13.9 s Normal 11.7-14.9 [facility] Comment on above: Performed By: #### L 100.0100, L300.4310, L500.2500, L300.3900 #### [facility] [address] [place], [address] Stress Reporton 03-07-2024 Stress Report [facility] [address] [place] [address] MR#: [id number] Acct: [id number] Name: MONTSERRAT WEBB Rep #: [id number] : 1940 83 From: Kamini Hsieh MD Primary Care: Dr. Lawson Ramos DO Status: REG CLI Referring Dr: Dex Landaverde DO Sex: F C Stress Test Report Date: 03/04/2024 Procedure: Pharmacologic stress nuclear imaging study Indications: Abnormal echo Consent: Per the patient Procedure: The patient underwent pharmacologic (Regadenoson) evaluation with a peak heart rate of 87 beats per minute (63%predicted maximal heart rate) and a peak blood pressure of 170/84 mmHg. The baseline ECG demonstrated normal sinus rhythm. EKG during lexiscan infusion revealed no significant ischemic changes. EKG post infusion revealed no significant ischemic changes [There were no cardiac dysrhythmias pretest, during pharmacologic infusion, or recovery]. [There was no complaint of chest discomfort during pharmacologic infusion or recovery]. The examination was discontinued secondary to completion of protocol. Impression: 1. Lexiscan stress test test is negative for Lexiscan infusion induced EKG changes of ischemia. 2. Lexiscan stress test test is negative for Lexiscan infusion induced chest pain. 3. Results of the nuclear portion of the test is as below Myocardial perfusion imaging study: Technique: The patient was injected with 10.5 millicuries of technetium 99m Cardiolite and subsequently rest SPECT Cardiolite nuclear imaging was obtained in the horizontal long, vertical long, and short axis views. The patient underwent pharmacologic [Regadenoson 0.4mg] evaluation. Please see above for details. The patient was injected with 34.6 millicuries of technetium 99m Cardiolite and subsequently stress SPECT Cardiolite nuclear imaging was obtained in the horizontal long, vertical long, and short axis views. A gated Cardiolite study at peak stress was obtained. Interpretation: Rest and stress SPECT Cardiolite nuclear imaging status post realignment, normalization, and attenuation correction demonstrate no evidence of significant ischemia or infarction. Gated images reveal no significant regional wall motion abnormalities. The reported LVEF is 60%. Impression: 1. There is no evidence of significant ischemia or infarction. 2. Estimated ejection fraction is 60%. This note was generated with [employer] dictation software. It may contain incorrect words, spelling, and punctuation that were not noted in checking the note before signing. 03/07/24 1344 Date Kamini Hsieh MD CC: Dr. Dex Landaverde, DO; Dr. Lawson Ramos DO Date Dictated: 03/07/241337 Date Transcribed: 03/07/241337 General Office Associate: NN Signed Normal [facility] Basic Metabolic Profile (BMP )on 02-27-2024 BUN/CRE 17.1 RATIO Normal 10-20 [facility] Comment on above: Performed By: #### L 100.0100, L300.4310, L500.2500, L300.3900 #### [facility] [address] [place], [address] CA,Total 8.6 mg/dL Normal 8.5-10.1 [facility] Comment on above: Performed By: #### L 100.0100, L300.4310, L500.2500, L300.3900 #### [facility] [address] [place], [address] Chloride [Moles/Vol] 105 mmol/L Normal 98-107 [facility] Comment on above: Performed By: #### L 100.0100, L300.4310, L500.2500, L300.3900 #### [facility] [address] [place], [address] CO2 [Moles/Vol] 25.0 mmol/L Normal 21.0-32.0 [facility] Comment on above: Performed By: #### L 100.0100, L300.4310, L500.2500, L300.3900 #### [facility] [address] [place], [address] Creatinine [Mass/Vol] 0.82 mg/dL Normal 0.55-1.02 [facility] Comment on above: Result Comment: The validity of the calculated GFR GFRAA in patients over 70 years has not been determined. Clinical correlation is essential. Performed By: #### L 100.0100, L300.4310, L500.2500, L300.3900 #### [facility] [address] [place], [address] ECRCL 44.10 ml/min Normal [facility] Comment on above: Performed By: #### L 100.0100, L300.4310, L500.2500, L300.3900 #### [facility] [address] [place], [address] EST GFR - AA 85 mL/min Normal >60 [facility] Comment on above: Result Comment: Afri can [place] GFR Calc Performed By: #### L 100.0100, L300.4310, L500.2500, L300.3900 #### [facility] [address] [place], [address] GAP 6 Normal 5-15 [facility] Comment on above: Performed By: #### L 100.0100, L300.4310, L500.2500, L300.3900 #### [facility] [address] [place], [address] GFR/1.73 sq M.predicted among non-blacks MDRD (S/P/Bld) [Vol rate/Area] 71 mL/min/{1.73_m2} Normal >60 [facility] Comment on above: Result Comment: Non- GFR Calc Performed By: #### L 100.0100, L300.4310, L500.2500, L300.3900 #### [facility] [address] [place], [address] Glucose [Mass/Vol] 164 mg/dL High 74-106 [facility] Comment on above: Result Comment: Fast ing Glucose result greater than or equal to 126 mg/dL suggests DIABETES MELLITUS per A.D.A. criteria. Performed By: #### L 100.0100, L300.4310, L500.2500, L300.3900 #### [facility] [address] [place], [address] Potassium [Moles/Vol] 3.1 mmol/L Low 3.5-5.1 [facility] Comment on above: Performed By: #### L 100.0100, L300.4310, L500.2500, L300.3900 #### [facility] [address] [place], [address] Sodium [Moles/Vol] 136 mmol/L Normal 136-145 [facility] Comment on above: Performed By: #### L 100.0100, L300.4310, L500.2500, L300.3900 #### [facility] [address] [place], [address] Urea nitrogen [Mass/Vol] 14 mg/dL Normal 7-18 [facility] Comment on above: Performed By: #### L 100.0100, L300.4310, L500.2500, L300.3900 #### [facility] [address] [place], [address] Basophil percentageOrdered B y: Dex Saima on 02-27-2024 Basophil percentage 2.3 mg/dL 2.5-4.9 [facility] Chloride [Moles/Vol] 105 mmol/L 98-107 [facility] Glucose [Mass/Vol] 164 mg/dL 74-106 [facility] Comment on above: Fasting Glucose resu lt greater than or equal to 126 mg/dL suggests DIABETES MELLITUS per A.D.A. criteria. Hemoglobin (Bld) [Mass/Vol] 13.5 g/dL 12.0-15.0 [facility] Potassium [Moles/Vol] 3.1 mmol/L 3.5-5.1 [facility] Sodium [Moles/Vol] 136 mmol/L 136-145 [facility] WBC (Bld) [#/Vol] 8.7 10*3/uL 4.4-11.0 [facility] CBC-Complete Blood Cnt No [facility] 02-27-2024 Erythrocyte distribution width (RBC) [Ratio] 13.2 % Normal 11.6-14.6 [facility] Comment on above: Performed By: #### L 100.0100, L300.4310, L500.2500, L300.3900 #### [facility] [address] [place], [address] Hematocrit (Bld) [Volume fraction] 40.8 % Normal 37-47 [facility] Comment on above: Performed By: #### L 100.0100, L300.4310, L500.2500, L300.3900 #### [facility] [address] [place], [address] Hemoglobin (Bld) [Mass/Vol] 13.5 g/dL Normal 12.0-15.0 [facility] Comment on above: Performed By: #### L 100.0100, L300.4310, L500.2500, L300.3900 #### [facility] [address] [place], [address] MCH (RBC) [Entitic mass] 29.0 pg Normal 27.0-32.0 [facility] Comment on above: Performed By: #### L 100.0100, L300.4310, L500.2500, L300.3900 #### [facility] [address] [place], [address] MCHC (RBC) [Mass/Vol] 33.1 g/dL Normal 32-36 [facility] Comment on above: Performed By: #### L 100.0100, L300.4310, L500.2500, L300.3900 #### [facility] [address] [place], [address] MCV (RBC) [Entitic vol] 87.7 fL Normal 81-99 [facility] Comment on above: Performed By: #### L 100.0100, L300.4310, L500.2500, L300.3900 #### [facility] [address] [place], [address] Platelet mean volume (Bld) [Entitic vol] 10.7 fL Normal 6.2-12.0 [facility] Comment on above: Performed By: #### L 100.0100, L300.4310, L500.2500, L300.3900 #### [facility] [address] [place], [address] Platelets (Bld) [#/Vol] 227 10*3/uL Normal 150-450 [facility] Comment on above: Performed By: #### L 100.0100, L300.4310, L500.2500, L300.3900 #### [facility] [address] [place], [address] RBC (Bld) [#/Vol] 4.65 10*6/uL Normal 4.2-5.4 [facility] Comment on above: Performed By: #### L 100.0100, L300.4310, L500.2500, L300.3900 #### [facility] [address] [place], [address] RDW SD 42.5 fl Normal 35.1-43.9 [facility] Comment on above: Performed By: #### L 100.0100, L300.4310, L500.2500, L300.3900 #### [facility] [address] [place], [address] WBC (Bld) [#/Vol] 8.7 10*3/uL Normal 4.4-11.0 [facility] Comment on above: Performed By: #### L 100.0100, L300.4310, L500.2500, L300.3900 #### [facility] [address] [place], [address] Determination of erythrocyte mean corpuscular volume (MCV)Ordered By: Dex Landaverde on 02-27-2024 MCV (RBC) [Entitic vol] 87.7 fL 81-99 [facility] Discharge Instructionon 02-09 Discharge Instruction [facility] Medical Records Department [address] [place] [address] Instructions for Home/Discharge Instructions 02/27/24 1351 MR#: [id number] Acct: [id number] Name: MONTSERRAT WEBB Rep #: [id number] : 1940 83 From: Dex Landaverde DO PCP: Dr. Lawson Ramos DO Status:ADM THEO Discharge Instructions Diet Discharge Diet: No restrictions Activity Discharge Activity: No Restrictions Weight Bearing Status: Full weight bearing Follow Up Care Test Results: Test results from this visit will be discussed in further detail at your follow-up appointment, if applicable. Discharge Plan Admission Admit Date/Time: 02/26/24 12:58 Primary Reason for Your Visit: Episode of passing out Attending Provider: Dex Landaverde Primary Care Provider: Lawson Ramos Consulting Providers: Aniya Malik Discharge Orders/Prescriptions Prescriptions: New amlodipine 5 mg Tablet 5 mg PO DAILY 30 Days Qty: 30 0RF lisinopril 10 mg Tablet 10 mg PO DAILY 30 Days Qty: 30 0RF metoprolol tartrate 25 mg Tablet 25 mg PO BID 30 Days Qty: 60 0RF Continued aspirin 81 mg Tablet,Chewable 81 mg PO DAILY cholecalciferol (vitamin D3) [Vitamin D3] 125 mcg (5,000 unit) Tablet 125 mcg PO DAILY sertraline 50 mg tablet 100 mg PO QHS cephalexin 250 mg capsule 250 mg PO .1 daily MoWedFri Patient Comments: MoWeFri, 1 daily cyanocobalamin (vitamin B-12) 1,000 mcg/mL solution 1,000 mcg IM QMONTH Patient Comments: FAMILY AND PT UNAWARE OF LAST INJECTION. WILL CALL IN TO GIVE LAST DOSE AT A LATER TIME methocarbamol 500 mg tablet 250 - 500 mg PO BID PRN PRN (Reason: muscle spasm) turmeric 1 cap PO DAILY Patient Comments: PT AND FAMILY UNAWARE OF STRENGTH krill oil 500 mg capsule 1,000 mg PO DAILY lidocaine 5 % adhesive patch,medicated See Rx Instructions .ROUTE .COMPLEX Rx Instructions: leave on most painful area for up to 12 hrs Discontinued metoprolol tartrate 50 mg tablet 50 mg PO BID lisinopril 30 mg tablet 30 mg PO DAILY Other Ambulatory Orders: Nuclear Stress Test - Chemical (Routine) Facility: [facility] - Location: [facility] Ordered By: Dr. Dex Landaverde Referrals / Follow Up: Lawson Ramos DO [Primary Care Provider] - Lawson Ramos [[facility]] - Disposition Disposition (needs filled in before D/C Order can be placed): Home, Self Care 02/27/24 1355 Dex Landaverde DO CC: Dr. Aniya Malik MD; Dr. Lawson Ramos DO Signed Normal [facility] Erythrocyte distribution wid th ratioOrdered By: Dex Landavered on 02-27-2024 Erythrocyte distribution width (RBC) [Ratio] 13.2 % 11.6-14.6 [facility] Erythrocyte distribution wid th standard deviationOrdered By: Dex Landaverde on 02-27-2024 Erythrocyte distribution width (RBC) [Entitic vol] 42.5 fL 35.1-43.9 [facility] Hematocrit Auto (Bld) [Volum e fraction]Ordered By: Dex Landaverde on 02-27-2024 Hematocrit (Bld) [Volume fraction] 40.8 % 37-47 [facility] - Chemistry and C hemistry - challengeOrdered By: Dex Landaverde on 02-27-2024 CO2 [Moles/Vol] 25.0 mmol/L 21.0-32.0 [facility] Magnesium [Mass/Vol] 1.7 mg/dL 1.6-2.6 [facility] Urea nitrogen/Creatinine [Mass ratio] 17.1 mg/mg 10-20 [facility] - Hematology and Cell countsOrdered By: Dex Landaverde on 02-27-2024 MCH (RBC) [Entitic mass] 29.0 pg 27.0-32.0 [facility] MCHC (RBC) [Mass/Vol] 33.1 g/dL 32-36 [facility] Platelet mean volume (Bld) [Entitic vol] 10.7 fL 6.2-12.0 [facility] Platelets (Bld) [#/Vol] 227 10*3/uL 150-450 [facility] Magnesiumon 02-27-2024 Magnesium [Mass/Vol] 1.7 mg/dL Normal 1.6-2.6 [facility] Comment on above: Order Comment: THG1 3 F THG1 5 F Performed By: #### L 501.5200, L501.2300 #### [facility] [address] [place], [place], [address] No Panel InformationOrdered By: Dex Landaverde on 02-27-2024 Estimated Creatinine Clearance Calc 44.10 ml/min [facility] Estimated GFR (MDRD) Amer 85 mL/min >60 [facility] Comment on above: GFR Calc Estimated GFR (MDRD) Non-Af Amer 71 mL/min >60 [facility] Comment on above: Non- GFR Calc Phosphoruson 02-27-2024 Phosphate [Mass/Vol] 2.3 mg/dL Low 2.5-4.9 [facility] Comment on above: Order Comment: G1 3 F G1 5 F Performed By: #### L 501.5200, L501.2300 #### [facility] [address] [place], [place], [address] RBC Auto (Bld) [#/Vol]Ordere d By: Dex Landaverde on 02-27-2024 RBC (Bld) [#/Vol] 4.65 10*6/uL 4.2-5.4 [facility] Serum or plasma calcium kinza urement (mass/volume)Ordered By: Dex Landaverde on 02-27-2024 Calcium [Mass/Vol] 8.6 mg/dL 8.5-10.1 [facility] Serum or plasma creatinine m easurement (mass/volume)Ordered By: Dex Landaverde on 02-27-2024 Creatinine [Mass/Vol] 0.82 mg/dL 0.55-1.02 [facility] Comment on above: The validity of the calculated GFR & GFRAA in patients over 70 years has not been determined. Clinical correlation is essential. Serum or plasma urea nitroge n measurement (mass/volume)Ordered By: Dex Landaverde on 02-27-2024 Urea nitrogen [Mass/Vol] 14 mg/dL 05-28 [facility] Thin prep Papanicolaou smear with manual screeningOrdered By: Dex Landaverde on 02-27-2024 Thin prep Papanicolaou smear with manual screening 6 03-25 [facility] Absolute lymphocyte countOrd ered By: Ezequiel Betancourt on 02-26-2024 Lymphocytes Auto (Unsp spec) [#/Vol] 1.69 10*3/uL 0.83-4.51 [facility] Automated blood erythrocyte count (number/volume)Ordered By: Ezequiel Betancourt on 02-26-2024 RBC (Bld) [#/Vol] 4.93 10*6/uL Normal 4.2-5.4 [facility] Comment on above: Performed By: #### L 100.0100, L501.4020, L500.2500 #### [facility] [address] [facility] [place], [address] Automated blood hematocrit ( percentage)Ordered By: Ezequiel Betancourt on 02-26-2024 Hematocrit (Bld) [Volume fraction] 44.7 % Normal 37-47 [facility] Comment on above: Performed By: #### L 100.0100, L501.4020, L500.2500 #### [facility] [address] [place], [address] Automated lymphocyte count a s percentage of total leukocytesOrdered By: Ezequiel Betancourt on 02-26-2024 Lymphocytes/100 WBC Auto (Unsp spec) 28.0 % 19-41 [facility] Basic Metabolic Profile (BMP )on 02-26-2024 BUN/CRE 15.0 RATIO Normal 10-20 [facility] Comment on above: Order Comment: 'TROP ' Serial specimen #1, #2 or #3: 1 Performed By: #### L 100.0100, L501.4020, L500.2500 #### [facility] [address] [place], [address] CA,Total 8.9 mg/dL Normal 8.5-10.1 [facility] Comment on above: Order Comment: 'TROP ' Serial specimen #1, #2 or #3: 1 Performed By: #### L 100.0100, L501.4020, L500.2500 #### [facility] [address] [place], [address] ECRCL 36.57 ml/min Normal [facility] Comment on above: Order Comment: 'TROP ' Serial specimen #1, #2 or #3: 1 Performed By: #### L 100.0100, L501.4020, L500.2500 #### [facility] [address] [place], [address] EST GFR - AA 55 mL/min Low >60 [facility] Comment on above: Order Comment: 'TROP ' Serial specimen #1, #2 or #3: 1 Result Comment: Afri can [place] GFR Calc Performed By: #### L 100.0100, L501.4020, L500.2500 #### [facility] [address] [place], [address] GAP 3 Low 5-15 [facility] Comment on above: Order Comment: 'TROP ' Serial specimen #1, #2 or #3: 1 Performed By: #### L 100.0100, L501.4020, L500.2500 #### [facility] [address] [place], [address] GFR/1.73 sq M.predicted among non-blacks MDRD (S/P/Bld) [Vol rate/Area] 45 mL/min/{1.73_m2} Low >60 [facility] Comment on above: Order Comment: 'TROP ' Serial specimen #1, #2 or #3: 1 Result Comment: Non- GFR Calc Performed By: #### L 100.0100, L501.4020, L500.2500 #### [facility] [address] [place], [address] Basic Metabolic Profile (BMP )Ordered By: Ezequiel Betancourt on 02-26-2024 CO2 [Moles/Vol] 28.0 mmol/L Normal 21.0-32.0 [facility] Comment on above: Order Comment: 'TROP ' Serial specimen #1, #2 or #3: 1 Performed By: #### L 100.0100, L501.4020, L500.2500 #### [facility] [address] [place], [address] Basophil percentageOrdered B y: Ezequiel Betancourt on 02-26-2024 Basophil percentage 0 SEEN /hpf 0-5 [facility] Chloride [Moles/Vol] 107 mmol/L Normal 98-107 [facility] Comment on above: Order Comment: 'TROP ' Serial specimen #1, #2 or #3: 1 Performed By: #### L 100.0100, L501.4020, L500.2500 #### [facility] [address] [place], [address] Glucose [Mass/Vol] 171 mg/dL High 74-106 [facility] Comment on above: Fasting Glucose resu lt greater than or equal to 126 mg/dL suggests DIABETES MELLITUS per A.D.A. criteria. Order Comment: 'TROP ' Serial specimen #1, #2 or #3: 1 Result Comment: Fast ing Glucose result greater than or equal to 126 mg/dL suggests DIABETES MELLITUS per A.D.A. criteria. Performed By: #### L 100.0100, L501.4020, L500.2500 #### [facility] [address] [place], [address] Potassium [Moles/Vol] 3.6 mmol/L Normal 3.5-5.1 [facility] Comment on above: Order Comment: 'TROP ' Serial specimen #1, #2 or #3: 1 Performed By: #### L 100.0100, L501.4020, L500.2500 #### [facility] [address] [place], [address] Sodium [Moles/Vol] 138 mmol/L Normal 136-145 [facility] Comment on above: Order Comment: 'TROP ' Serial specimen #1, #2 or #3: 1 Performed By: #### L 100.0100, L501.4020, L500.2500 #### [facility] [address] [place], [address] Basophils/100 WBC (Bld) 1.2 % High 0-1 [facility] Comment on above: Performed By: #### L 100.0100, L501.4020, L500.2500 #### [facility] [address] [place], [address] Eosinophils/100 WBC (Bld) 3.5 % Normal 0-5 [facility] Comment on above: Performed By: #### L 100.0100, L501.4020, L500.2500 #### [facility] [address] [place], [address] Hemoglobin (Bld) [Mass/Vol] 14.5 g/dL Normal 12.0-15.0 [facility] Comment on above: Performed By: #### L 100.0100, L501.4020, L500.2500 #### [facility] [address] [place], [address] Monocytes/100 WBC (Bld) 7.5 % Normal 0-10 [facility] Comment on above: Performed By: #### L 100.0100, L501.4020, L500.2500 #### [facility] [address] [place], [address] Neutrophils/100 WBC (Bld) 59.5 % Normal 47-70 [facility] Comment on above: Performed By: #### L 100.0100, L501.4020, L500.2500 #### [facility] [address] [place], [address] WBC (Bld) [#/Vol] 6.0 10*3/uL Normal 4.4-11.0 [facility] Comment on above: Performed By: #### L 100.0100, L501.4020, L500.2500 #### [facility] [address] [place], [address] Neutrophils (Bld) [#/Vol] 3.6 10*3/uL 2.0-7.7 [facility] Bilirubin Test strip Ql (U)O rdered By: Ezequiel Betancourt on 02-26-2024 Bilirubin Ql (U) Negative Negative [facility] CBC W/Diff, Automatedon 02-09 Absolute Lymph 1.69 X10 3/uL Normal 0.83-4.51 [facility] Comment on above: Performed By: #### L 100.0100, L501.4020, L500.2500 #### [facility] [address] [place], [address] Absolute Neut 3.6 X10 3/uL Normal 2.0-7.7 [facility] Comment on above: Performed By: #### L 100.0100, L501.4020, L500.2500 #### [facility] [address] [place], [address] IG% 0.300 Normal 0.0-0.9 [facility] Comment on above: Result Comment: IG% - Immature Granulocytes (promyelocytes, myelocytes and metamyelocytes) > 1% indicates that a LEFT SHIFT is Present. Performed By: #### L 100.0100, L501.4020, L500.2500 #### [facility] [address] [place], [address] Lymphocytes/100 WBC (Bld) 28.0 % Normal 19-41 [facility] Comment on above: Performed By: #### L 100.0100, L501.4020, L500.2500 #### [facility] [address] [place], [address] Nucleated RBC (Bld) [#/Vol] 0 10*3/uL Normal 0-5 [facility] Comment on above: Performed By: #### L 100.0100, L501.4020, L500.2500 #### [facility] [address] [place], [address] RDW SD 45.1 fl High 35.1-43.9 [facility] Comment on above: Performed By: #### L 100.0100, L501.4020, L500.2500 #### [facility] [address] [place], [address] CBC W/Diff, AutomatedOrdered By: Ezequiel Betancourt on 02-26-2024 MCH (RBC) [Entitic mass] 29.4 pg Normal 27.0-32.0 [facility] Comment on above: Performed By: #### L 100.0100, L501.4020, L500.2500 #### [facility] [address] [place], [address] MCHC (RBC) [Mass/Vol] 32.4 g/dL Normal 32-36 [facility] Comment on above: Performed By: #### L 100.0100, L501.4020, L500.2500 #### [facility] [address] [place], [address] Platelet mean volume (Bld) [Entitic vol] 10.7 fL Normal 6.2-12.0 [facility] Comment on above: Performed By: #### L 100.0100, L501.4020, L500.2500 #### [facility] [address] [place], [address] Platelets (Bld) [#/Vol] 252 10*3/uL Normal 150-450 [facility] Comment on above: Performed By: #### L 100.0100, L501.4020, L500.2500 #### [facility] [address] [place], [address] CTA Head AND Neck W/ Contras ton 02-26-2024 CTA Head AND Neck W/ Contrast [facility] Imaging Services [address] [place] [address] CTA Head AND Neck W/ Contrast MR#: [id number] Acct: [id number] Name: MONTSERRAT WEBB Rep #: [id number] : 1940 F 83 From: Nick Samaniego PCP: Dr. Lawson Ramos, DO Status: ADM THEO Study: CTA Head AND Neck W/ Contrast Date of Exam: Exam# [id number] Ordering Dr: Dex Landaverde DO [id number] INDICATION: h/o of carotid stenosis, r/o CVA EXAMINATION: CT BRAIN WITHOUT CONTRAST, CTA HEAD, AND CTA NECK TECHNIQUE: Noncontrast axial images were obtained of the brain. Subsequently, routine carotid CT angiogram protocol was performed without and with IV contrast. In addition, images were obtained of the [place]. NASCET criteria using the distal ICAs for comparison were used for evaluation of stenoses. 3D reconstructions were reviewed. A radiation dose optimization technique was used for this scan. IV Contrast dosage and agent: 100 cc of Isovue-370 COMPARISON: No relevant prior comparison study available FINDINGS: --CT BRAIN WITHOUT CONTRAST: BRAIN PARENCHYMA: No intra- or extra-axial hemorrhage. No evidence of acute infarct. No intracranial mass or mass effect. There is preservation of the aldridge/white matter interface. Periventricular deep white matter changes likely due to chronic microvascular disease. Posterior fossa structures are unremarkable. CSF SPACES: Moderate diffuse atrophy. Basal cisterns are patent. CALVARIUM, SKULL BASE, PARANASAL SINUSES AND MASTOID AIR CELLS: Clear. No discrete lytic or blastic abnormalities. --CTA NECK: AORTIC ARCH AND BRANCHES: Normal anatomy, patent. RIGHT CCA: No occlusion, significant stenosis or dissection. RIGHT ICA: Moderate atherosclerotic calcifications of the origin of the right ICA with less than 50% stenosis. LEFT CCA: No occlusion, significant stenosis or dissection. LEFT ICA: Minimal atherosclerotic calcifications of the origin of the left ICA without significant stenosis. RIGHT VERTEBRAL ARTERY: No occlusion, significant stenosis or dissection. LEFT VERTEBRAL ARTERY: No occlusion, significant stenosis or dissection. NECK SOFT TISSUES: Unremarkable. --CTA HEAD: --Anterior circulation: ICAs: No significant stenosis at the intracranial/visualiz ed segments. ACAs: No significant stenosis at the visualized segments. ACOM: Not clearly visualized. MCAs: No significant stenosis at the visualized segments. --Posterior circulation: PCOMs: origin of the bilateral benzol operator benzol operator: No significant stenosis at the visualized segments. BASILAR ARTERY: No significant stenosis. VERTEBRAL ARTERIES: No significant stenosis at the intradural/visualized segments. Dominant right side. No evidence of intracranial aneurysm or vascular malformation. CT/CTA Head AND Neck W/ Contrast IMPRESSION: 1. Unremarkable bilateral CCAs. 2. Atherosclerotic calcifications of the origin of the ICAs with less than 50% stenosis on the right side. 3. No intracranial great vessel stenosis. 4. Patent bilateral vertebral arteries without evidence of stenosis. Electronically Signed: Nick Russ MD at 15:24 EDT , CC: Dr. Dex Landaverde DO; Dr. Lawson Ramos DO General Office Associate: Signed Normal [facility] Chest 1 View (Portable)on Chest 1 View (Portable) [facility] Imaging Services [address] [place] [address] Chest 1 View (Portable) MR#: [id number] Acct: [id number] Name: MONTSERRAT WEBB Rep #: [id number] : 1940 F 83 From: Nick Samaniego PCP: Dr. Lawson Ramos DO Status: REG ER Study: Chest 1 View (Portable) Date of Exam: 02/26/24 Exam# [id number] Ordering Dr: Ezequiel Betancourt MD [id number] INDICATION: chest pain EXAMINATION/TECHNIQUE : X-RAY - XR Chest 1 View COMPARISON: No relevant prior comparison study available __ FINDINGS: LINES/DEVICES: None. LUNGS: Minimal atelectatic changes in the left lung base. Mild stranding in the right upper lobe could be due to scarring.. No evidence of pleural effusions. MEDIASTINUM AND CARDIOVASCULAR STRUCTURES: Cardiac silhouette not enlarged. Central airways and mediastinal contour are unremarkable. BONES AND SOFT TISSUES: No demonstrated acute osseous changes. Surgical clips in right axilla. RAD/Chest 1 View (Portable) IMPRESSION: Atelectatic changes or scarring in the right midlung and left lung base. No active pulmonary disease. Electronically Signed: Nick Russ MD at 12:20 EDT , CC: Dr. Ezequiel Betancourt MD; Dr. Lawson Ramos DO General Office Associate: Signed Normal [facility] Determination of erythrocyte mean corpuscular volume (MCV)Ordered By: Ezequiel Betancourt on 02-26-2024 MCV (RBC) [Entitic vol] 90.7 fL Normal 81-99 [facility] Comment on above: Performed By: #### L 100.0100, L501.4020, L500.2500 #### [facility] [address] [place], [address] Echo Completeon 02-26-2024 Echo [facility] Cardiovascular Services [address] [place] [address] Echo Complete 02/27/24 0834 MR#: [id number] Acct: [id number] Name: MONTSERRAT WEBB Rep #: [id number] : 1940 83 From: Aniya Malik MD Attending Dr: Dr. Dex Landaverde DO Status : ADM THEO Ordering Dr: Dex Landaverde DO Date: 02/26/24 Location: U Sex: F C Admitted: 04/17/24 Reason For Study: SYNCOPE Procedure This was a 2D Doppler, Color Flow transthoracic echocardiogram. Exam performed portable in patient room. Left Ventricle Normal LV size. Moderate concentric left ventricular hypertrophy. The left ventricular ejection fraction is 50 %. Posterior basal hypokinesis. Stage 1 diastolic dysfunction. Right Ventricle Normal right ventricle. Atria The left and right atria are normal. Mitral Valve Trivial mitral valve insufficiency. Tricuspid Valve Mild tricuspid valve insufficiency. Right ventricular systolic pressure estimated to be 38 mmHg. Aortic Valve Trisinus/trileaflet aortic valve. Pulmonic Valve The pulmonic valve is not well visualized. Great Vessels Normal sized aortic root. Pericardium/Pleural No pericardial effusion. MMode/2D Measurements Calculations LVIDd: 3.6 cm IVSd: 1.1 cm LAV(MOD-bp): 27.6 ml LVIDs: 3.2 cm LVPWd: 1.4 cm LAV(MOD-bp) Indexed: 14.6 ml/m2 FS: 11.1 % LAV(MOD-sp2): 28.4 ml LAV(MOD-sp4): 26.2 ml SV(MOD-sp4): 15.6 ml SV(sp4-el): 18.0 ml LVAd ap4: 16.2 cm2 LVLd ap4: 6.1 cm EDV(MOD-sp4): 35.5 ml EDV(sp4-el): 36.2 ml LVAs ap4: 10.7 cm2 LVLs ap4: 5.3 cm ESV(MOD-sp4): 19.9 ml ESV(sp4-el): 18.2 ml EF(MOD-sp4): 43.9 % EF(sp4-el): 49.7 % LA A4 area: 12.1 cm2 LA dimension(2D): 2.7 cm RA A4 area: 5.9 cm2 TAPSE: 0.90 cm Time Measurements MV dec time: 0.10 sec Doppler Measurements Calculations MV E max chelsi: 37.2 cm/sec Lat Peak E' Chelsi: 9.4 cm/sec Med Peak E' Chelsi: 6.3 cm/sec MV A max chelsi: 74.7 cm/sec E/E' lat: 4.0 E/E' med: 5.9 MV E/A: 0.50 MV V2 max: 68.0 cm/sec Ao V2 max: 86.3 cm/sec MV max P.8 mmHg MV dec slope: 379.6 cm/sec2 Ao max P.0 mmHg MV V2 mean: 45.4 cm/sec Ao V2 mean: 61.8 cm/sec MV mean P.93 mmHg Ao mean P.8 mmHg MV V2 VTI: 11.5 cm Ao V2 VTI: 17.0 cm AV (velocity ratio): 1.1 LV V1 max: 84.5 cm/sec LV V1 max P.9 mmHg LV V1 mean P.5 mmHg LV V1 mean: 55.5 cm/sec LV V1 VTI: 19.0 cm ECHO/Echo Complete Interpretation Summary Moderate concentric left ventricular hypertrophy. The left ventricular ejection fraction is 50 %. Posterior basal hypokinesis. Stage 1 diastolic dysfunction. Mild tricuspid valve insufficiency. Right ventricular systolic pressure estimated to be 38 mmHg. Ordering Physician: Dex Landaverde Referring Physician: LAWSON RAMOS Performed By: Candie Simental RCS 02/27/24 1044 Date Aniya Malik MD CC: Dr. Dex Landaverde DO; Dr. Lawson Ramos DO Date Dictated: 02/27/2434 Date Transcribed: 02/27/241043 General Office Associate: Signed Normal [facility] Emergency Department Summary on 02-26-2024 Emergency Department Summary [facility] Medical Records Department [address] [place] [address] Emergency Department Summary 02/26/24 MR#: [id number] Acct: [id number] Name: MONTSERRAT WEBB Rep #: [id number] : 1940 83 From: Ezequiel Betancourt MD PCP: Dr. 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 Went fine and in her normal state healthy breakfast. Has had no recent illness. No nausea, vomiting or diarrhea. No fever or chills. No chest pain. When her daughter was helping her get out of the bathtub she started feeling lightheaded and had a syncopal event. They had her on a chair. She never fell or got injured. This happened for about 10 minutes she actually had a complete loss of conscious but is since resolved and is close to baseline currently. She denies any recent complaints. Family agrees that she has been in good state of health recently. Prior similar symptoms: Yes Recent Illness/Hospitalizati on: No PFSH PFSH Medical History Actinic skin damage Borderline abnormal TFTs Breast cancer Cerebral microvascular disease COVID-19 Dementia Essential hypertension Hx of breast cancer Hypertension Inflamed seborrheic keratosis Late onset Alzheimer's dementia without behavioral disturbance Lipoma Osteoporosis Over 65 years old Rosacea Solar lentigo Tongue lesion Viral warts Vitamin D deficiency Home Medications ascorbic acid (vitamin C) 500 mg tablet (Vitamin C) 500 mg PO DAILY suppliment 05/25/22 [History Last Taken 1 Week Ago 05/18/22] aspirin 81 mg chewable tablet 81 mg PO DAILY preventative 05/25/22 [History Last Taken 05/25/22] cholecalciferol (vitamin D3) 125 mcg (5,000 unit) tablet (Vitamin D3) 125 mcg PO DAILY suppliment 05/25/22 [History Last Taken 05/25/22] lisinopril 30 mg tablet 30 mg PO DAILY blood pressure 05/25/22 [History Last Taken 05/25/22] metoprolol tartrate 50 mg tablet 50 mg PO BID heart 05/25/22 [History Last Taken 05/25/22] amoxicillin 500 mg-potassium clavulanate 125 mg tablet (Augmentin) 1 tab PO BID 5 days #10 tabs 05/28/22 [Rx Last Taken Unknown] sertraline 50 mg tablet 100 mg PO QHS depression 12/17/22 [History Last Taken Unknown] Allergy/AdvReac Type Severity Reaction Status Date / Time No Known Allergies Allergy Verified 02/26/24 10:26 Surgical History H/O mastectomy Social History household members: spouse housing: house Smoking Status: Never smoker alcohol intake: never substance use type: does not use ROS ROS ED ROS Narrative Denies recent nausea, vomiting or diarrhea. Denies fever or chills. Denies dysuria. Denies headache or chest pain. Denies any abdominal pain or shortness of breath. Review of Systems ROS Unobtainable: Denies due to encephalopathy Constitutional Constitutional ED: Denies chills or fever(s) Eyes Eyes: Denies blurry vision ENT ENT ED: Denies ear pain Cardiovascular Cardiovascular: Denies chest pain or palpitations Respiratory/Chest Respiratory/Chest: Denies cough or dyspnea Gastrointestinal Gastrointestinal: Denies abdominal pain, constipation, diarrhea, melena, nausea or vomiting Genitourinary Genitourinary ED: Denies dysuria or hematuria Musculoskeletal Musculoskeletal: Denies arthralgias or back pain Integumentary Denies abscess or Abrasions Neurologic Neurologic: Denies headache(s) Psychiatric Psychiatric: Denies anxiety or depression Endocrine Endocrinology: Denies cold intolerance Allergic/Immunologic Allergic/Immunologic ED: Denies mouth swelling, tongue swelling or urticaria EXAM Physical Exam Narrative Exam Narrative: Well-appearing 83-year-old female sitting upright in bed. Multiple family members at bedside. Vital signs are stable afebrile. Pulse ox 94% on room air no hypoxia. H EENT exam unremarkable atraumatic. Pupils round reactive light. Moist extremities. Neck nontender lymphadenopathy. Back nontender. Lungs clear to auscultation bilaterally. Heart regular rhythm rate about 60 no murmur appreciated. Chest wall and ribs nontender. Abdomen soft nontender. Moving all 4 extremities. 5 of 5 public policy associate strength. Dorsi plantarflexion intact. No deformities. Nontender. No edema. Neurologically she is awake alert. Answering questions following commands. No focal motor deficits. Const Vital Signs: (more content not included)... Normal [facility] Erythrocyte distribution wid th ratioOrdered By: Ezequiel Betancourt on 02-26-2024 Erythrocyte distribution width (RBC) [Ratio] 13.4 % Normal 11.6-14.6 [facility] Comment on above: Performed By: #### L 100.0100, L501.4020, L500.2500 #### [facility] [address] [place], [address] Erythrocyte distribution wid th standard deviationOrdered By: Ezequiel Betancourt on 02-26-2024 Erythrocyte distribution width (RBC) [Entitic vol] 45.1 fL 35.1-43.9 [facility] H AND P Exam - Hospitaliston 02-26-2024 H&P Exam - Hospitalist [facility] Medical Records Department [address] [place] [address] H P Exam - Hospitalist 02/26/24 1256 MR#: [id number] Acct: [id number] Name: MONTSERRAT WEBB Rep #: [id number] : 1940 83 From: Dex Landaverde DO PCP: Dr. Lawson Ramos, DO Status:ADM THEO Location: [place] [address] HPI - General General Date of Admission: 02/26/24 Date of Service: 02/26/24 Chief Complaint: Syncopal episode HPI Narrative MONTSERRAT WEBB, is a 83 F who presented to [facility] ED on 02/26/2024 after having a syncopal episode at home. Patient seen at bedside in the ED, and gpanmapb-tq-cee present. Patient was sitting up fairly comfortably in bed, conversing normally, in no acute distress. Patient remembers eating breakfast without issue and then was in the bathtub after breakfast when she began to feel somewhat clammy and lightheaded. Her tanwtzxz-dv-iqv helped her out of the bathtub and she does not remember much after that until arriving in the ED. Wwonwhkz-xa-shw and supplemented patient history. Ikobyetc-cr-wfg states that the patient passed out after she was held out of bathtub. She and patient's put her on a chair, so she never fell or was injured. However, patient was unconscious for at least 10 to 15 minutes, and family noted that even in the squad ride over she was still very lethargic and out of it. She returned to her baseline about 45 minutes to 1 hour after the episode. They feel that the patient is currently at her baseline mental status. Patient does have a history of a few episodes like this in the past. Had a syncopal episode concerning for stroke back in 2021 requiring a short admission here. She presented at that time after having presyncopal symptoms and then syncopized and into her planter while working out in the garden. During that hospitalization, workup was largely negative. Her echo showed an EF of 55%, stage I diastolic function, no other abnormalities. Orthostatic vitals were negative. Cardiac enzymes were negative. CT brain without contrast was unremarkable. CTA head/neck was unremarkable except for calcific plaque at origin of right internal carotid artery. Neurology followed and did not feel the carotid findings were related to her symptoms. She improved back to her baseline mental status fairly quickly but that hospitalization was complicated by bright red blood rectum that was suspected secondary to ischemic colitis. She was also found to have a UTI at that time. In the ED, she was found to have sinus bradycardia with heart rate consistently in the 50s. Blood pressure was initially normotensive to mildly hypertensive. Did have mild creatinine elevation of 1.20 and labs appeared mildly hemoconcentrated compared to previous labs but were otherwise fairly benign. Chest x-ray was nonacute. Patient did have significant hypertension to the low 200 systolic shortly after arriving to the floor, was asymptomatic and had no focal neurologic symptoms. CTA head/neck was obtained to assess for CVA, was unremarkable. Given syncope of unclear etiology, patient was hospitalized for further management. [facility] Medical History (Updated 02/26/24 @ 15:57 by Jeri Winter) Actinic skin damage Borderline abnormal TFTs Breast cancer Cerebral microvascular disease CHF (congestive heart failure) COVID-19 Dementia Essential hypertension Hx of breast cancer Hypertension Inflamed seborrheic keratosis Late onset Alzheimer's dementia without behavioral disturbance Lipoma Osteoporosis Over 65 years old Rosacea Solar lentigo Tongue lesion Viral warts Vitamin D deficiency Home Medications aspirin 81 mg chewable tablet 81 mg PO DAILY preventative 05/25/22 [History Last Taken 02/26/24] cholecalciferol (vitamin D3) 125 mcg (5,000 unit) tablet (Vitamin D3) 125 mcg PO DAILY suppliment 05/25/22 [History Last Taken 02/26/24] lisinopril 30 mg tablet 30 mg PO DAILY blood pressure 05/25/22 [History Last Taken 02/26/24] metoprolol tartrate 50 mg tablet 50 mg PO BID heart 05/25/22 [History Last Taken 02/26/24] sertraline 50 mg tablet 100 mg PO QHS depression 12/17/22 [History Last Taken Unknown] cephalexin 250 mg capsule 250 mg PO .1 daily MoWedFri 02/26/24 [History Last Taken 02/26/24] cyanocobalamin (vitamin B-12) 1,000 mcg/mL injection solution 1,000 mcg IM QMONTH 02/26/24 [History Last Taken Unknown] krill oil 500 mg capsule 1,000 mg PO DAILY SUPPLEMENT 02/26/24 [History Last Taken 02/26/24] lidocaine 5 % topical patch See Rx Instructions topical .COMPLEX 02/26/24 [History Last Taken Unknown] methocarbamol 500 mg tablet 250 - 500 mg PO BID PRN PRN muscle spasm 02/26/24 [History Last Taken 02/26/24] turmeric 1 cap PO DAILY SUPPLEMENT 02/26/24 [History Last Taken 02/26/24] Allergy/AdvReac Type Severity Reaction Status Date / Time No Known Allergies Allergy V (more content not included)... Normal [facility] Immature granulocytes/100 WB C Auto (Bld)Ordered By: Ezequiel Betancourt on 02-26-2024 Immature granulocytes/100 WBC (Bld) 0.300 % 0.0-0.9 [facility] Comment on above: IG% - Immature Granu locytes (promyelocytes, myelocytes and metamyelocytes) > 1% indicates that a LEFT SHIFT is Present. Ketones Test strip Ql (U)Ord ered By: Ezequiel Betancourt on 02-26-2024 Ketones Ql (U) Negative Negative [facility] L501.4020on 02-26-2024 TROPONIN-I HS 7 pg/mL Normal 3.0-54.0 [facility] Comment on above: Order Comment: 'TROP ' Serial specimen #1, #2 or #3: 1 Result Comment: Plea se Note: New Test Units and Gender Specific Reference Ranges. For more information see Policy Stat Procedure [place] High Sensitivity Troponin (TNIH) and attachments. Performed By: #### L 100.0100, L300.4310, L500.2500, L300.3900 #### [facility] [address] [place], [place], [id number] Laboratory - Chemistry and C hemistry - challengeOrdered By: Ezequiel Betancourt on 02-26-2024 Urea nitrogen/Creatinine [Mass ratio] 15.0 mg/mg 10-20 [facility] - Hematology and Cell countsOrdered By: Ezequiel Betancourt on 02-26-2024 Nucleated RBC/100 WBC (Bld) [Ratio] 0 % 0-5 [facility] Mucus LM Ql (Urine sed)Order ed By: Ezequiel Betancourt on 02-26-2024 Mucus Ql (Urine sed) 0 SEEN /hpf [facility] Nitrite Test strip Ql (U)Ord ered By: Ezequiel Betancourt on 02-26-2024 Nitrite Ql (U) Negative Negative [facility] No Panel InformationOrdered By: Ezequiel Betancourt on 02-26-2024 Urine RBC 0 SEEN /hpf 0-5 [facility] Estimated Creatinine Clearance Calc 36.57 ml/min [facility] Estimated GFR (MDRD) Amer 55 mL/min >60 [facility] Comment on above: GFR Calc Estimated GFR (MDRD) Non-Af Amer 45 mL/min >60 [facility] Comment on above: Non- GFR Calc Troponin I High Sensitivity 7 pg/mL 3.0-54.0 [facility] Comment on above: Please Note: New Deb t Units and Gender Specific Reference Ranges. For more information see Policy Stat Procedure [place] High Sensitivity Troponin (TNIH) and attachments. Protein Test strip Ql (U)Ord ered By: Ezequiel Betancourt on 02-26-2024 Protein Ql (U) Negative Negative [facility] Serum or plasma calcium kinza urement (mass/volume)Ordered By: Ezequiel Betancourt on 02-26-2024 Calcium [Mass/Vol] 8.9 mg/dL 8.5-10.1 [facility] Serum or plasma creatinine m easurement (mass/volume)Ordered By: Ezequiel Betancourt on 02-26-2024 Creatinine [Mass/Vol] 1.20 mg/dL High 0.55-1.02 [facility] Comment on above: The validity of the calculated GFR & GFRAA in patients over 70 years has not been determined. Clinical correlation is essential. Order Comment: 'TROP ' Serial specimen #1, #2 or #3: 1 Result Comment: The validity of the calculated GFR GFRAA in patients over 70 years has not been determined. Clinical correlation is essential. Performed By: #### L 100.0100, L501.4020, L500.2500 #### [facility] [address] [place], [address] Serum or plasma urea nitroge n measurement (mass/volume)Ordered By: Ezequiel Betancourt on 02-26-2024 Urea nitrogen [Mass/Vol] 18 mg/dL Normal 7-18 [facility] Comment on above: Order Comment: 'TROP ' Serial specimen #1, #2 or #3: 1 Performed By: #### L 100.0100, L501.4020, L500.2500 #### [facility] [address] [place], [address] Squamous epithelial cells de tection in urine sediment by light microscopyOrdered By: Ezequiel Betancourt on 02-26-2024 Epithelial cells.squamous LM Ql (Urine sed) 0-5 SEEN /hpf 5-10 [facility] Thin prep Papanicolaou smear with manual screeningOrdered By: Ezequiel Betancourt on 02-26-2024 Thin prep Papanicolaou smear with manual screening 3 5-15 [facility] Urinalysis, Completeon 02-25 EPI,SQUAMOUS 0-5 SEEN Normal 5-10 [facility] Comment on above: Order Comment: DANIAL MICHAELOR TO SPECIFY Performed By: #### L 400.0001 #### [facility] [address] [place], [address] BACTERIA 0 SEEN Normal None Seen [facility] Comment on above: Order Comment: DANIAL MICHAELOR TO SPECIFY Performed By: #### L 400.0001 #### [facility] [address] [place], [address] Mucus Ql (Urine sed) 0 SEEN Normal [facility] Comment on above: Order Comment: DANIAL MICHAELOR TO SPECIFY Performed By: #### L 400.0001 #### [facility] [address] [place], [address] RBC 0 SEEN Normal 0-5 [facility] Comment on above: Order Comment: COLLE CTOR TO SPECIFY Performed By: #### L 400.0001 #### [facility] [address] [place], [place], [address] WBC 0 SEEN Normal 0-5 [facility] Comment on above: Order Comment: DANIAL CTOR TO SPECIFY Performed By: #### L 400.0001 #### [facility] [address] [place], [address] Urine blood detectionOrdered By: Ezequiel Betancourt on 02-26-2024 RBC Ql (U) Negative Negative [facility] Urine clarityOrdered By: Micheal Betancourt on 02-26-2024 Clarity (U) Clear Clear [facility] Urine color determinationOrd ered By: Ezequiel Betancourt on 02-26-2024 Color (U) Yellow Yellow [facility] Urine glucose detectionOrder ed By: Ezequiel Betancourt on 02-26-2024 Glucose Ql (U) Normal mg/dl Normal [facility] Urine leukocyte esterase det ection by dipstickOrdered By: Ezequiel Betancourt on 02-26-2024 Leukocyte esterase Test strip Ql (U) Negative Negative [facility] Urine pHOrdered By: Ezequiel brand on 02-26-2024 pH (U) 7.0 [pH] 5.0 - 8.0 [facility] Urine sediment bacteria coun t by microscopy (number/high power field)Ordered By: Ezequiel Betancourt on 02-26-2024 Bacteria LM.HPF (Urine sed) [#/Area] 0 /[HPF] None Seen [facility] Urine specific gravity measu rementOrdered By: Ezequiel Betancourt on 02-26-2024 Specific gravity (U) [Rel density] 1.010 1.002-1.030 [facility] Urine urobilinogen measureme ntOrdered By: Ezequiel Betancourt on 02-26-2024 Urobilinogen Ql (U) Normal mg/dl Normal [facility] No Panel Informationon 11-13 IMPRESSION: No acute fracture. 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 Dextroscoliosis of the lower thoracic and lumbar spine. General Office Associate: BESS Transcribe Date/Time: Nov 13 2023 12:24P Dictated by : KIKA MCKENZIE MD This examination was interpreted and the report reviewed and electronically signed by: KIKA MCKENZIE MD on Nov 13 2023 12:28PM [facility] DIVISION OF RADIOLOGY Radiology Study observation (narrative) [facility] No Panel InformationOrdered By: Ccf Provider on 11-13-2023 [facility] XR Lumbar spine 3 Viewson * * *Final Report* * * DATE OF EXAM: Nov 13 2023 12:05PM WOX 5228 - XR LUMBAR 3V AP/LAT/L5-S1 / PROCEDURE REASON: multiple diagnoses * * * * Physician Interpretation * * * * X-ray thoracic spine, AP, lateral and swimmer's views X-ray lumbosacral spine, AP, lateral and L5-S1 views Indication: Back pain Comparison: None Counting reference: Lumbosacral junction. For the purposes of this report, L5S1 is considered the last lumbar type disc space and L4-5 is considered the level of the iliac crest. No acute fracture. Dextroscoliosis of the lower thoracic and lumbar spine with the apex at L1. There is degenerative disc disease at multiple levels of the thoracic and lumbar spine with endplate sclerosis, intervertebral disc space narrowing and osteophyte formation. Sacroiliac joints appear normal. Vascular calcifications are noted. DIVISION OF RADIOLOGY Provider, [facility] - 11/13/2023 * * *Final Report* * * DATE OF EXAM: Nov 13 2023 12:05PM WOX 5228 - XR LUMBAR 3V AP/LAT/L5-S1 / PROCEDURE REASON: multiple diagnoses * * * * Physician Interpretation * * * * X-ray thoracic spine, AP, lateral and swimmer's views X-ray lumbosacral spine, AP, lateral and L5-S1 views Indication: Back pain Comparison: None Counting reference: Lumbosacral junction. For the purposes of this report, L5S1 is considered the last lumbar type disc space and L4-5 is considered the level of the iliac crest. No acute fracture. Dextroscoliosis of the lower thoracic and lumbar spine with the apex at L1. There is degenerative disc disease at multiple levels of the thoracic and lumbar spine with endplate sclerosis, intervertebral disc space narrowing and osteophyte formation. Sacroiliac joints appear normal. Vascular calcifications are noted. IMPRESSION IMPRESSION: No acute fracture. 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 Dextroscoliosis of the lower thoracic and lumbar spine. General Office Associate: PSCB Transcribe Date/Time: Nov 13 2023 12:24P Dictated by : KIKA MCKENZIE MD This examination was interpreted and the report reviewed and electronically signed by: KIKA MCKENZIE MD on Nov 13 2023 12:28PM [facility] XR Thoracic spine AP and Lat eral and Swimmerson 11-13-2023 * * *Final Report* * * DATE OF EXAM: Nov 13 2023 12:05PM WOX 5261 - XR THORACIC 3V AP/LAT/SWIMMERS / PROCEDURE REASON: multiple diagnoses * * * * Physician Interpretation * * * * X-ray thoracic spine, AP, lateral and swimmer's views X-ray lumbosacral spine, AP, lateral and L5-S1 views Indication: Back pain Comparison: None Counting reference: Lumbosacral junction. For the purposes of this report, L5S1 is considered the last lumbar type disc space and L4-5 is considered the level of the iliac crest. No acute fracture. Dextroscoliosis of the lower thoracic and lumbar spine with the apex at L1. There is degenerative disc disease at multiple levels of the thoracic and lumbar spine with endplate sclerosis, intervertebral disc space narrowing and osteophyte formation. Sacroiliac joints appear normal. Vascular calcifications are noted. DIVISION OF RADIOLOGY Provider, [facility] - 11/13/2023 * * *Final Report* * * DATE OF EXAM: Nov 13 2023 12:05PM WOX 5261 - XR THORACIC 3V AP/LAT/SWIMMERS / PROCEDURE REASON: multiple diagnoses * * * * Physician Interpretation * * * * X-ray thoracic spine, AP, lateral and swimmer's views X-ray lumbosacral spine, AP, lateral and L5-S1 views Indication: Back pain Comparison: None Counting reference: Lumbosacral junction. For the purposes of this report, L5S1 is considered the last lumbar type disc space and L4-5 is considered the level of the iliac crest. No acute fracture. Dextroscoliosis of the lower thoracic and lumbar spine with the apex at L1. There is degenerative disc disease at multiple levels of the thoracic and lumbar spine with endplate sclerosis, intervertebral disc space narrowing and osteophyte formation. Sacroiliac joints appear normal. Vascular calcifications are noted. IMPRESSION IMPRESSION: No acute fracture. 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 Dextroscoliosis of the lower thoracic and lumbar spine. General Office Associate: BESS Transcribe Date/Time: Nov 13 2023 12:24P Dictated by : KIKA MCKENZIE MD This examination was interpreted and the report reviewed and electronically signed by: KIKA MCKENZIE MD on Nov 13 2023 12:28PM EST [facility] XR CHEST 2V FRONTAL/LATon [facility] XR Chest PA and Lateralon IMPRESSION: Stable chest General Office Associate: PSCB Transcribe Date/Time: Nov 28 2022 1:26P Dictated by : MAYKEL GRIER MD This examination was interpreted and the report reviewed and electronically signed by: MAYKEL GRIER MD on Nov 28 2022 1:29PM EST DIVISION OF RADIOLOGY * * *Final Report* * * DATE OF EXAM: Nov 28 2022 12:40PM WOX 5291 - XR CHEST 2V FRONTAL/LAT / PROCEDURE REASON: Lump in chest * * * * Physician Interpretation * * * * EXAMINATION: CHEST RADIOGRAPH (2 VIEW FRONTAL & LATERAL) CLINICAL HISTORY: Lump in chest MQ: XC2_6 EXAM DATE/TIME: 11/28/2022 12:40 PM COMPARISON: 06/04/2022 RESULT: Lines, tubes, and devices: None. Lungs and pleura: Chronic changes of right mid lateral and left lower lobe airspace disease. Stable bronchiectasis. No acute process seen. No pleural effusion. No pneumothorax. Cardiomediastinal silhouette: Stable cardiomediastinal silhouette. Bones and soft tissues: Surgical clips noted along the right lateral chest. Prior right mastectomy. DIVISION OF RADIOLOGY Provider, [facility] - 11/28/2022 * * *Final Report* * * DATE OF EXAM: Nov 28 2022 12:40PM WOX 5291 - XR CHEST 2V FRONTAL/LAT / PROCEDURE REASON: Lump in chest * * * * Physician Interpretation * * * * EXAMINATION: CHEST RADIOGRAPH (2 VIEW FRONTAL & LATERAL) CLINICAL HISTORY: Lump in chest MQ: XC2_6 EXAM DATE/TIME: 11/28/2022 12:40 PM COMPARISON: 06/04/2022 RESULT: Lines, tubes, and devices: None. Lungs and pleura: Chronic changes of right mid lateral and left lower lobe airspace disease. Stable bronchiectasis. No acute process seen. No pleural effusion. No pneumothorax. Cardiomediastinal silhouette: Stable cardiomediastinal silhouette. Bones and soft tissues: Surgical clips noted along the right lateral chest. Prior right mastectomy. IMPRESSION IMPRESSION: Stable chest General Office Associate: PSCB Transcribe Date/Time: Nov 28 2022 1:26P Dictated by : MAYKEL GRIER MD This examination was interpreted and the report reviewed and electronically signed by: MAYKEL GRIER MD on Nov 28 2022 1:29PM EST [facility] Radiology Study observation (narrative) Deanna samaniego [facility] XR Chest PA and LateralOrder ed By: Ccf Provider on 11-28-2022 [facility] Comprehensive metabolic 2000 panelon 06-05-2022 Albumin [Mass/Vol] 3.7 g/dL Low 3.9 - 4.9 g/dL [facility] ALP [Catalytic activity/Vol] 93 U/L 34 - 123 U/L [facility] ALT [Catalytic activity/Vol] 12 U/L 7 - 38 U/L [facility] Anion gap [Moles/Vol] 15 mmol/L 9 - 18 mmol/L [facility] AST [Catalytic activity/Vol] 23 U/L 13 - 35 U/L [facility] Bilirubin [Mass/Vol] 0.4 mg/dL 0.2 - 1 .3 mg/dL [facility] Calcium [Mass/Vol] 9.5 mg/dL 8.5 - 10. 2 mg/dL [facility] Chloride [Moles/Vol] 102 mmol/L 97 - 10 5 mmol/L [facility] CO2 [Moles/Vol] 21 mmol/L Low 22 - 30 mmol/L [facility] Creatinine [Mass/Vol] 1.04 mg/dL High 0.58 - 0.96 mg/dL [facility] Estimated Glomerular Filtration Rate 54 mL/min/1.73m Low >=60 mL/min/1.73m [facility] Glucose [Mass/Vol] 80 mg/dL 74 - 99 mg/dL [facility] Potassium [Moles/Vol] 4.5 mmol/L 3.7 - 5.1 mmol/L [facility] Protein [Mass/Vol] 6.9 g/dL 6.3 - 8.0 g/dL [facility] Sodium [Moles/Vol] 138 mmol/L 136 - 144 mmol/L [facility] Urea nitrogen [Mass/Vol] 22 mg/dL High 7 - 21 mg/d L [facility] CBC panel Auto (Bld)on 06-04 Erythrocyte distribution width (RBC) [Ratio] 13.0 % 11.5 - 15.0 % [facility] Hematocrit (Bld) [Volume fraction] 42.0 % 36.0 - 46.0 % [facility] Hemoglobin (Bld) [Mass/Vol] 13.6 g/dL 11.5 - 15.5 g/dL [facility] MCH (RBC) [Entitic mass] 30.2 pg 26. 0 - 34.0 pg [facility] MCHC (RBC) [Mass/Vol] 32.4 g/dL 30.5 - 36.0 g/dL [facility] MCV (RBC) [Entitic vol] 93.1 fL 80.0 - 100.0 fL [facility] Nucleated RBC (Bld) [#/Vol] 10*3/uL <0.01 k/uL [facility] Platelet mean volume (Bld) [Entitic vol] 11.1 fL 9.0 - 12.7 fL [facility] Platelets (Bld) [#/Vol] 269 10*3/uL 150 - 400 k/uL [facility] RBC (Bld) [#/Vol] 4.51 10*6/uL 3.90 - 5.2 0 m/uL [facility] WBC (Bld) [#/Vol] 8.06 10*3/uL 3.70 - 11. 00 k/uL [facility] XR CHEST 2V FRONTAL/LATon [facility] XR Chest PA and Lateralon IMPRESSION: Stable bilateral airspace opacities. No new significant collapse or consolidation General Office Associate: BESS Transcribe Date/Time: Jun 04 2022 1:24P Dictated by : ROBERT ARMAS MD This examination was interpreted and the report reviewed and electronically signed by: ROBERT ARMAS MD on Jun 04 2022 1:29PM EST [email or web address] _DIVISION OF RADIOLOGY * * *Final Report* * * DATE OF EXAM: Jun 04 2022 1:19PM WOX 5291 - XR CHEST 2V FRONTAL/LAT / PROCEDURE REASON: multiple diagnoses * * * * Physician Interpretation * * * * EXAMINATION: CHEST RADIOGRAPH (2 VIEW FRONTAL & LATERAL) CLINICAL HISTORY: Lung infiltrate Recurrent UTI (urinary tract infection) MQ: XC2_6 EXAM DATE/TIME: 06/04/2022 1:19 PM COMPARISON: 08/02/2020 chest x-ray and CT scans of 08/05/2020 RESULT: Lines, tubes, and devices: None. Lungs and pleura: Patient has known foci of bronchiectasis bilaterally. Stable right midlung field peripheral, and left lower lung field airspace opacities. Foci of bronchiectasis within the right middle lobe and lingula. No new consolidation. No lung mass. No pleural effusion. No pneumothorax. Cardiomediastinal silhouette: Normal cardiomediastinal silhouette. Bones and soft tissues: Mild wedging of lower thoracic vertebra [id number] _DIVISION OF RADIOLOGY Provider, [facility] - 06/04/2022 * * *Final Report* * * DATE OF EXAM: Jun 04 2022 1:19PM WOX 5291 - XR CHEST 2V FRONTAL/LAT / PROCEDURE REASON: multiple diagnoses * * * * Physician Interpretation * * * * EXAMINATION: CHEST RADIOGRAPH (2 VIEW FRONTAL & LATERAL) CLINICAL HISTORY: Lung infiltrate Recurrent UTI (urinary tract infection) MQ: XC2_6 EXAM DATE/TIME: 06/04/2022 1:19 PM COMPARISON: 08/02/2020 chest x-ray and CT scans of 08/05/2020 RESULT: Lines, tubes, and devices: None. Lungs and pleura: Patient has known foci of bronchiectasis bilaterally. Stable right midlung field peripheral, and left lower lung field airspace opacities. Foci of bronchiectasis within the right middle lobe and lingula. No new consolidation. No lung mass. No pleural effusion. No pneumothorax. Cardiomediastinal silhouette: Normal cardiomediastinal silhouette. Bones and soft tissues: Mild wedging of lower thoracic vertebra IMPRESSION IMPRESSION: Stable bilateral airspace opacities. No new significant collapse or consolidation General Office Associate: PSCB Transcribe Date/Time: Jun 04 2022 1:24P Dictated by : ROBERT ARMAS MD This examination was interpreted and the report reviewed and electronically signed by: ROBERT ARMAS MD on Jun 04 2022 1:29PM EST [facility] Radiology Study observation (narrative) Deanna samaniego [facility] XR Chest PA and LateralOrder ed By: Ccf Provider on 06-04-2022 [facility] Absolute lymphocyte counton 05-28-2022 Lymphocytes Auto (Unsp spec) [#/Vol] 1.47 10*3/uL 0.83-4.51 [facility] Work Phone: Basophil percentageon 2021 Basophils/100 WBC (Bld) 0.8 % 0-1 [facility] Work Phone: Chloride [Moles/Vol] 110 mmol/L 98-107 [facility] Work Phone: Eosinophils/100 WBC (Bld) 4.1 % 0-5 [facility] Work Phone: Glucose [Mass/Vol] 97 mg/dL 74-106 [facility] Work Phone: Neutrophils (Bld) [#/Vol] 4.7 10*3/uL 2.0-7.7 [facility] Work Phone: Neutrophils/100 WBC (Bld) 64.5 % 47-70 [facility] Work Phone: Potassium [Moles/Vol] 3.7 mmol/L 3.5-5.1 [facility] Work Phone: Sodium [Moles/Vol] 141 mmol/L 136-145 [facility] Work Phone: WBC (Bld) [#/Vol] 7.3 10*3/uL 4.4-11.0 [facility] Work Phone: Blood erythrocytes count (nu mber/volume)on 05-28-2022 RBC (Bld) [#/Vol] 4.23 10*6/uL 4.2-5.4 [facility] Work Phone: Blood hemoglobin measurement (mass/volume)on 05-28-2022 Hemoglobin (Bld) [Mass/Vol] 12.7 g/dL 12.0-15.0 [facility] Work Phone: Blood lymphocytes/100 leukoc yteson 05-28-2022 Lymphocytes/100 WBC (Bld) 20.1 % 19-41 [facility] Work Phone: [phone] Blood monocytes/100 leukocyt eson 05-28-2022 Monocytes/100 WBC (Bld) 10.0 % 0-10 [facility] Work Phone: Blood platelet mean volumeon 05-28-2022 Platelet mean volume (Bld) [Entitic vol] 11.1 fL 6.2-12.0 [facility] Work Phone: Determination of erythrocyte mean corpuscular volume (MCV)on 05-28-2022 MCV (RBC) [Entitic vol] 92.0 fL 81-99 [facility] Work Phone: Hematocrit Auto (Bld) [Volum e fraction]on 05-28-2022 Hematocrit (Bld) [Volume fraction] 38.9 % 37-47 [facility] Work Phone: Laboratory - Chemistry and C hemistry - challengeon 05-28-2022 CO2 [Moles/Vol] 24.0 mmol/L 21.0-32.0 [facility] Work Phone: Urea nitrogen/Creatinine [Mass ratio] 17.9 mg/mg 10-20 [facility] Work Phone: [phone] Laboratory - Hematology and Cell countson 05-28-2022 Erythrocyte distribution width (RBC) [Entitic vol] 45.4 fL 35.1-43.9 [facility] Work Phone: [phone] Erythrocyte distribution width (RBC) [Ratio] 13.3 % 11.6-14.6 [facility] Work Phone: Immature granulocytes/100 WBC (Bld) 0.500 % 0.0-0.9 [facility] Work Phone: Comment on above: IG% - Immature Granu locytes (promyelocytes, myelocytes and metamyelocytes) > 1% indicates that a LEFT SHIFT is Present. MCH (RBC) [Entitic mass] 30.0 pg 27.0-32.0 [facility] Work Phone: [phone] Nucleated RBC/100 WBC (Bld) [Ratio] 0 % 0-5 [facility] Work Phone: [phone] MCHC Auto (RBC) [Mass/Vol]on 05-28-2022 MCHC (RBC) [Mass/Vol] 32.6 g/dL 32-36 [facility] Work Phone: No Panel Informationon 05-28 Estimated Creatinine Clearance Calc 33.44 ml/min [facility] Work Phone: [phone] Estimated GFR (MDRD) Amer 60 mL/min >60 [facility] Work Phone: [phone] Comment on above: GFR Calc Estimated GFR (MDRD) Non-Af Amer 49 mL/min >60 [facility] Work Phone: Comment on above: Non- GFR Calc Platelets bldon 05-28-2022 Platelets (Bld) [#/Vol] 240 10*3/uL 150-450 [facility] Work Phone: [phone] Serum or plasma calcium kinza urement (mass/volume)on 05-28-2022 Calcium [Mass/Vol] 8.6 mg/dL 8.5-10.1 [facility] Work Phone: [phone] Serum or plasma creatinine m easurement (mass/volume)on 05-28-2022 Creatinine [Mass/Vol] 1.12 mg/dL 0.55-1.02 [facility] Work Phone: [phone] Comment on above: The validity of the calculated GFR & GFRAA in patients over 70 years has not been determined. Clinical correlation is essential. Serum or plasma urea nitroge n measurement (mass/volume)on 05-28-2022 Urea nitrogen [Mass/Vol] 20 mg/dL 7-18 [facility] Work Phone: [phone] Thin prep Papanicolaou smear with manual screeningon 05-28-2022 Thin prep Papanicolaou smear with manual screening 7 5-15 [facility] Work Phone: [phone] Basophil percentageon 2021 Basophil percentage 2.8 mg/dL 2.5-4.9 [facility] Work Phone: [phone] Bilirubin [Mass/Vol] 0.60 mg/dL 0.20-1.00 [facility] Work Phone: [phone] Comment on above: For patients on eltr ombopag therapy, use of Dimension [place] TBIL is not recommended. Cholesterol [Mass/Vol] 214 mg/dL <200 [facility] Work Phone: [phone] Comment on above: <200 mg/dL Desirable 200-240 mg/dL Borderline >240 mg/dL High Risk Protein [Mass/Vol] 6.8 g/dL 6.4-8.2 [facility] Work Phone: [phone] Triglyceride [Mass/Vol] 77 mg/dL <199 [facility] Work Phone: [phone] Comment on above: The drugs N-Acetylcy steine and Metamizole may falsely depress this assay.Serum Triglycerides Reference Interval Normal <150 mg/dL Borderline high 150 - 199 mg/dL High 200 - 499 mg/dL Very High > or = 500 mg/dL Basophil percentage 5-10 SEEN /hpf 0-5 [facility] Work Phone: [phone] Bilirubin Test strip Ql (U)o n 05-26-2022 Bilirubin Ql (U) Negative Negative [facility] Work Phone: [phone] Ketones Test strip Ql (U)on 05-26-2022 Ketones Ql (U) Negative Negative [facility] Work Phone: [phone] Laboratory - Chemistry and C hemistry - challengeon 05-26-2022 ALP [Catalytic activity/Vol] 92 U/L 45-117 [facility] Work Phone: [phone] ALT [Catalytic activity/Vol] 13 U/L 13-56 [facility] Work Phone: [phone] Globulin (S) [Mass/Vol] 3.8 g/dL 2.2-4.2 [facility] Work Phone: [phone] Magnesium [Mass/Vol] 1.9 mg/dL 1.6-2.[address] [facility] [address] [facility] Work Phone: [phone] Mucus LM Ql (Urine sed)on Mucus Ql (Urine sed) 0 SEEN /hpf [facility] Work Phone: [phone] Nitrite Test strip Ql (U)on 05-26-2022 Nitrite Ql (U) Positive Negative [facility] Work Phone: [phone] Panel Informationon 05-26 Thyroid Stimulating Hormone (TSH) 1.94 uIU/mL 0.358-3.74 [facility] Work Phone: [phone] Protein Test strip Ql (U)on 05-26-2022 Protein Ql (U) 30 mg/dl Negative [facility] Work Phone: [phone] Serum or plasma albumin kinza urement (mass/volume)on 05-26-2022 Albumin [Mass/Vol] 3.0 g/dL 3.2-5.0 [facility] Work Phone: [phone] Serum or plasma albumin/glob ulin mass ratioon 05-26-2022 Albumin/Globulin [Mass ratio] 0.8 {ratio} 0.9-2.4 [facility] Work Phone: [phone] Serum or plasma cholesterol in HDL measurement (mass/volume)on 05-26-2022 Cholesterol in HDL [Mass/Vol] 60 mg/dL >40 [facility] Work Phone: [phone] Comment on above: The drugs N-Acetylcy steine and Metamizole may falsely depress this assay. Reference Range HDL <40 mg/dL Low HDL Cholesterol HDL >or= 60 mg/dL High HDL Cholesterol Serum or plasma cholesterol in VLDL measurement (mass/volume)on 05-26-2022 Cholesterol in VLDL [Mass/Vol] 15 mg/dL 5-40 [facility] Work Phone: Serum or plasma low density lipoprotein (LDL) cholesterol measurement (mass/volume)on 05-26-2022 Cholesterol in LDL [Mass/Vol] 139 mg/dL 0-130 [facility] Work Phone: Squamous epithelial cells de tection in urine sediment by light microscopyon 05-26-2022 Epithelial cells.squamous LM Ql (Urine sed) 0-5 SEEN /hpf 5-10 [facility] Work Phone: Thin prep Papanicolaou smear with manual screeningon 05-26-2022 Thin prep Papanicolaou smear with manual screening 21 U/L 15-37 [facility] Work Phone: Urine blood detectionon 05-11 RBC Ql (U) 10 /ul Negative [facility] Work Phone: RBC Ql (U) 0 SEEN /hpf 0-5 [facility] Work Phone: Urine clarityon 05-26-2022 Clarity (U) Sl. Cloudy Clear [facility] Work Phone: Urine color determinationon 05-26-2022 Color (U) Yellow Yellow [facility] Work Phone: Urine glucose detectionon Glucose Ql (U) Normal mg/dl Normal [facility] Work Phone: Urine leukocyte esterase det ection by dipstickon 05-26-2022 Leukocyte esterase Test strip Ql (U) 25 /ul Negative [facility] Work Phone: Urine pHon 05-26-2022 pH (U) 6.5 [pH] 5.0 - 8.0 [facility] Work Phone: Urine sediment bacteria coun t by microscopy (number/high power field)on 05-26-2022 Bacteria LM.HPF (Urine sed) [#/Area] 3 /[HPF] None Seen [facility] Work Phone: Urine specific gravity measu rementon 05-26-2022 Specific gravity (U) [Rel density] 1.010 1.002-1.030 [facility] Work Phone: Urobilinogen Auto test strip Ql (U)on 05-26-2022 Urobilinogen Ql (U) 4 mg/dl Normal [facility] Work Phone: Basophil percentageon 2021 Lactate [Moles/Vol] 1.9 mmol/L 0.4-2.0 [facility] Work Phone: INR in Blood by Coagulation assayon 05-25-2022 INR Coag (Bld) [Relative time] 1.0 {INR} [facility] Work Phone: Laboratory - Chemistry and C hemistry - challengeon 05-25-2022 Lipase [Catalytic activity/Vol] 163 U/L 73-393 [facility] Work Phone: Laboratory - Coagulationon 0 05-25-2022 aPTT Coag (Bld) [Time] 25.1 s 24.1-36.2 [facility] Work Phone: PT Coag (PPP) [Time] 12.7 s 11.7-14.9 [facility] Work Phone: No Panel Informationon 05-25 Troponin I High Sensitivity 6 pg/mL 3.0-54.0 [facility] Work Phone: Comment on above: Please Note: New Deb t Units and Gender Specific Reference Ranges. For more information see Policy Stat Procedure [place] High Sensitivity Troponin (TNIH) and attachments. Serum or plasma prolactin me asurement (mass/volume)on 05-25-2022 Prolactin [Mass/Vol] 82.7 ng/mL [facility] Work Phone: Comment on above: NORMAL REFERENCE RAN GES FEMALE NON- 2.2 - 30.3 ng/mL 8.1 - 347.6 ng/mL POST-MENOPAUSAL 0.7 - 31.5 ng/mL MALE 2.5 - 17.4 ng/mL Culture, urine Bacteria identified Cx Nom (U) Escherichia coli [facility] Work Phone: Vital Signs Date Time Vital Sign Value Performing Clinician Facility 04-26-2025 11:53-0400 Body mass index (BMI) [Ratio] 23.16 kg/m2 Bhavya Noe COUNTER STITCHER.BALING PRESS OPERATOR Work Phone: [facility] 04-26-2025 11:53-0400 Body weight 60.78 kg Bhavya Noe COUNTER STITCHER.BALING PRESS OPERATOR Work Phone: [facility] 04-26-2025 11:53-0400 Diastolic blood pressure 62 mm[Hg] Bhavya Noe COUNTER STITCHER.BALING PRESS OPERATOR Work Phone: [facility] 04-26-2025 11:53-0400 Heart rate 68 /min Bhavya Noe COUNTER STITCHER.BALING PRESS OPERATOR Work Phone: [facility] 04-26-2025 11:53-0400 Respiratory rate 16 /min Bhavya Noe COUNTER STITCHER.BALING PRESS OPERATOR Work Phone: [facility] 04-26-2025 11:53-0400 SaO2% (BldA) [Mass fraction] 96 % Bhavya Noe COUNTER STITCHER.BALING PRESS OPERATOR Work Phone: [facility] 04-26-2025 11:53-0400 Systolic blood pressure 122 mm[Hg] Bhavya Noe COUNTER STITCHER.BALING PRESS OPERATOR Work Phone: [facility] 03-29-2025 11:29-0400 Diastolic blood pressure 98 mm[Hg] Bhavya Noe COUNTER STITCHER.BALING PRESS OPERATOR Work Phone: [facility] 03-29-2025 11:29-0400 Heart rate 65 /min Bhavya Noe COUNTER STITCHER.BALING PRESS OPERATOR Work Phone: [facility] 03-29-2025 11:29-0400 Respiratory rate 14 /min Bhavya Noe COUNTER STITCHER.BALING PRESS OPERATOR Work Phone: [facility] 03-29-2025 11:29-0400 SaO2% (BldA) [Mass fraction] 98 % Bhavya Noe COUNTER STITCHER.BALING PRESS OPERATOR Work Phone: [facility] 03-29-2025 11:29-0400 Systolic blood pressure 173 mm[Hg] Bhavya Noe COUNTER STITCHER.BALING PRESS OPERATOR Work Phone: [facility] 09-16-2024 10:16-0500 Body mass index (BMI) [Ratio] 25.23 kg/m2 Lawson Ramos DO Work Phone: [facility] 09-16-2024 10:16-0500 Body temperature 97.11 [degF] Lawson Ramos DO Work Phone: [facility] 09-16-2024 10:16-0500 Body weight 66.22 kg Lawson Ramos DO Work Phone: [facility] 09-16-2024 10:16-0500 Diastolic blood pressure 60 mm[Hg] Lawson Ramos DO Work Phone: [facility] 09-16-2024 10:16-0500 Heart rate 64 /min Lawson Ramos DO Work Phone: [facility] 09-16-2024 10:16-0500 Respiratory rate 20 /min Lawson Ramos DO Work Phone: [facility] 09-16-2024 10:16-0500 Systolic blood pressure 110 mm[Hg] Lawson Ramos DO Work Phone: [facility] 03-10-2024 11:54-0400 Body mass index (BMI) [Ratio] 24.3 kg/m2 Jayashree Dorian COUNTER STITCHER.BALING PRESS OPERATOR Work Phone: [facility] 03-10-2024 11:54-0400 Body weight 63.78 kg Jayashree Dorian COUNTER STITCHER.BALING PRESS OPERATOR Work Phone: [facility] 03-10-2024 11:54-0400 Diastolic blood pressure 82 mm[Hg] Jayashree Dorian COUNTER STITCHER.BALING PRESS OPERATOR Work Phone: [facility] 03-10-2024 11:54-0400 Heart rate 78 /min Jayashree Dorian COUNTER STITCHER.BALING PRESS OPERATOR Work Phone: [facility] 03-10-2024 11:54-0400 Respiratory rate 16 /min Jayashree Dorian COUNTER STITCHER.BALING PRESS OPERATOR Work Phone: [facility] 03-10-2024 11:54-0400 SaO2% (BldA) [Mass fraction] 94 % Jayashree Remy COUNTER STITCHER.BALING PRESS OPERATOR Work Phone: [facility] 03-10-2024 11:54-0400 Systolic blood pressure 128 mm[Hg] Jayashree Remy BALING PRESS OPERATOR Work Phone: [facility] 02-27-2024 14:28-0400 Body temperature 97.7 [degF] Dr. Lawson Ramos Work Phone: 8(415)416-486927 [place] [address] 02-27-2024 14:28-0400 Diastolic blood pressure 85 mm[Hg] Dr. Lawson Ramos Work Phone: 8(188)248-646089 [place] [address] 02-27-2024 14:28-0400 Heart rate 86 /min Dr. Lawson Ramos Work Phone: 5(535)218-914089 [place] [address] 02-27-2024 14:28-0400 Respiratory rate 18 /min Dr. Lawson Ramos Work Phone: 3(620)740-669589 [place] [address] 02-27-2024 14:28-0400 SaO2% (BldA) [Mass fraction] 97 % Dr. Lawson Ramos Work Phone: 9(377)831-952289 [place] [address] 02-27-2024 14:28-0400 Systolic blood pressure 160 mm[Hg] Dr. Lawson Ramos Work Phone: 9(102)898-365927 [place] [address] 02-26-2024 14:15-0400 Body height 162.[address] Lawson Ramos Work Phone: 0(586)[phone] [place] [address] 02-26-2024 14:15-0400 Body mass index (BMI) [Ratio] 23.6 kg/m2 Dr. Lawson Ramos Work Phone: 6(316)280-614227 [place] [address] 02-26-2024 14:15-0400 Body weight 62.[address] Lawson Ramos Work Phone: 9(251)409-937489 [place] [address] 02-26-2024 13:33-0400 Body temperature 98 [degF] [facility] 02-26-2024 13:33-0400 Diastolic blood pressure 72 mm[Hg] [facility] 02-26-2024 13:33-0400 Heart rate 63 /min [facility] 02-26-2024 13:33-0400 Respiratory rate 18 /min [facility] 02-26-2024 13:33-0400 SaO2% (BldA) [Mass fraction] 99 % [facility] 02-26-2024 13:33-0400 Systolic blood pressure 165 mm[Hg] [facility] 02-26-2024 10:26-0400 Body height 162.56 cm [facility] 02-26-2024 10:26-0400 Body mass index (BMI) [Ratio] 31.7 kg/m2 [facility] 02-26-2024 10:26-0400 Body weight 83.9 kg [facility] 02-24-2024 10:06-0400 Body temperature 97 [degF] Lawson Ramos DO Work Phone: [facility] 02-24-2024 10:06-0400 Body weight 63.96 kg Lawson Ramos DO Work Phone: [facility] 02-24-2024 10:06-0400 Diastolic blood pressure 88 mm[Hg] Lawson Ramos DO Work Phone: [facility] 02-24-2024 10:06-0400 Heart rate 60 /min Lawson Ramos DO Work Phone: [facility] 02-24-2024 10:06-0400 Respiratory rate 16 /min Lawson Ramos DO Work Phone: [facility] 02-24-2024 10:06-0400 Systolic blood pressure 146 mm[Hg] Lawson Ramos DO Work Phone: [facility] 08-30-2023 12:37-0400 Body height 162 cm Lawson Ramos DO Work Phone: [facility] 08-30-2023 12:37-0400 Body temperature 97 [degF] Lawson Ramos DO Work Phone: [facility] 08-30-2023 12:37-0400 Body weight 63.5 kg Lawson Ramos DO Work Phone: [facility] 08-30-2023 12:37-0400 Diastolic blood pressure 70 mm[Hg] Lawson Ramos DO Work Phone: [facility] 08-30-2023 12:37-0400 Heart rate 60 /min Lawson Ramos DO Work Phone: [facility] 08-30-2023 12:37-0400 Respiratory rate 16 /min Lawson Ramos DO Work Phone: [facility] 08-30-2023 12:37-0400 Systolic blood pressure 124 mm[Hg] Lawson Ramos DO Work Phone: [facility] 11-28-2022 11:43-0500 Body weight 61.78 kg Jayashree Dorian COUNTER STITCHER.BALING PRESS OPERATOR Work Phone: [facility] 11-28-2022 11:43-0500 Diastolic blood pressure 70 mm[Hg] Jayashree Dorian COUNTER STITCHER.BALING PRESS OPERATOR Work Phone: [facility] 11-28-2022 11:43-0500 Heart rate 61 /min Jayashree Dorian COUNTER STITCHER.BALING PRESS OPERATOR Work Phone: [facility] 11-28-2022 11:43-0500 Respiratory rate 16 /min Jayashree Dorian COUNTER STITCHER.BALING PRESS OPERATOR Work Phone: [facility] 11-28-2022 11:43-0500 SaO2% (BldA) [Mass fraction] 97 % Jayashree Dorian COUNTER STITCHER.BALING PRESS OPERATOR Work Phone: [facility] 11-28-2022 11:43-0500 Systolic blood pressure 118 mm[Hg] Jayashree Dorian COUNTER STITCHER.BALING PRESS OPERATOR Work Phone: [facility] 08-20-2022 10:42-0400 Body weight 61.24 kg Lawson Ramos DO Work Phone: [facility] 08-20-2022 10:42-0400 Diastolic blood pressure 72 mm[Hg] Lawson Ramos DO Work Phone: [facility] 08-20-2022 10:42-0400 Heart rate 62 /min Lawson Ramos DO Work Phone: [facility] 08-20-2022 10:42-0400 Respiratory rate 18 /min Lawson Ramos DO Work Phone: [facility] 08-20-2022 10:42-0400 Systolic blood pressure 124 mm[Hg] Lawson Ramos DO Work Phone: [facility] 06-04-2022 11:57-0400 Body temperature 98.49 [degF] Jayashree Dorian COUNTER STITCHER.BALING PRESS OPERATOR Work Phone: [facility] 06-04-2022 11:57-0400 Body weight 60.6 kg Jayashree Dorian COUNTER STITCHER.BALING PRESS OPERATOR Work Phone: [facility] 06-04-2022 11:57-0400 Diastolic blood pressure 74 mm[Hg] Jayashree Dorian COUNTER STITCHER.BALING PRESS OPERATOR Work Phone: [facility] 06-04-2022 11:57-0400 Heart rate 61 /min Jayashree Dorian COUNTER STITCHER.BALING PRESS OPERATOR Work Phone: [facility] 06-04-2022 11:57-0400 SaO2% (BldA) [Mass fraction] 93 % Jayashree Dorian COUNTER STITCHER.BALING PRESS OPERATOR Work Phone: [facility] 06-04-2022 11:57-0400 Systolic blood pressure 118 mm[Hg] Jayashree Dorian COUNTER STITCHER.BALING PRESS OPERATOR Work Phone: [facility] 05-28-2022 09:34-0400 Heart rate 70 /min [facility] Work Phone: 05-28-2022 09:32-0400 Body temperature 97.3 [degF] [facility] Work Phone: 05-28-2022 09:32-0400 Diastolic blood pressure 73 mm[Hg] [facility] Work Phone: 05-28-2022 09:32-0400 Respiratory rate 16 /min [facility] Work Phone: 05-28-2022 09:32-0400 SaO2% (BldA) [Mass fraction] 94 % [facility] Work Phone: 05-28-2022 09:32-0400 Systolic blood pressure 133 mm[Hg] [facility] Work Phone: 05-25-2022 17:33-0400 Body height 162.56 cm [facility] Work Phone: 05-25-2022 17:33-0400 Body mass index (BMI) [Ratio] 22.6 kg/m2 [facility] Work Phone: 05-25-2022 17:33-0400 Body weight 59.87 kg [facility] Work Phone: 02-28-2022 10:37-0400 Body temperature 97 [degF] Lawson Ramos DO Work Phone: [facility] 02-28-2022 10:37-0400 Body weight 61.69 kg Lawson Ramos DO Work Phone: [facility] 02-28-2022 10:37-0400 Diastolic blood pressure 80 mm[Hg] Lawson Ramos DO Work Phone: [facility] 02-28-2022 10:37-0400 Heart rate 64 /min Lawson Ramos DO Work Phone: [facility] 02-28-2022 10:37-0400 Respiratory rate 20 /min Lawson Ramos DO Work Phone: [facility] 02-28-2022 10:37-0400 Systolic blood pressure 120 mm[Hg] Lawson Ramos DO Work Phone: [facility] Encounters Encounter Date Encounter Type Care Provider Facility Start: 07-15-2025 End: 07-16-2025 Refill Lawson L Ramos DO Work Phone: [facility] [place] Comment on above: Refill Request Start: 06-28-2025 End: 06-28-2025 Follow-up encounter Sierra Pedroza APRN.BALING PRESS OPERATOR Work Phone: [facility] Start: 06-26-2025 End: 06-28-2025 Telephone encounter Lawson Neilrison DO Work Phone: [facility] Comment on above: Patient Update; Resu lts Start: 06-25-2025 End: 06-25-2025 ambulatory LAWSON L RAMOS Facility:[facility] Start: 04-26-2025 End: 04-26-2025 Office outpatient visit 15 minutes Bhavya Liu APRN.BALING PRESS OPERATOR Work Phone: [facility] Comment on above: Fatigue, unspecified type (Primary Dx); Anxiety as acute reaction to exceptional stress; Moderate recurrent major depression (HCC); Late onset Alzheimer's disease without behavioral disturbance (HCC) Start: 04-26-2025 End: 04-26-2025 ambulatory LAWSON L RAMOS Facility:[facility] Start: 04-13-2025 End: 04-13-2025 Follow-up encounter Lawson Neilrison DO Work Phone: [facility] Start: 04-08-2025 End: 04-08-2025 ambulatory LAWSON L RAMOS Facility:[facility] Start: 04-08-2025 End: 04-08-2025 ambulatory LAWSON L RAMOS Facility:[facility] Start: 04-06-2025 End: 04-06-2025 ambulatory Sandi Ang MA [facility] Start: 04-06-2025 End: 04-06-2025 Patient encounter procedure Sandi Ang MA [facility] Comment on above: Population Health Na vigation Outreach Start: 04-06-2025 End: 04-08-2025 Telephone encounter Lawson Kathy NeilRamos DO Work Phone: [facility] Comment on above: Patient Update Start: 03-31-2025 End: 05-31-2025 Follow-up encounter Bhavya Liu APRN.BALING PRESS OPERATOR Work Phone: [facility] Start: 03-29-2025 End: 03-29-2025 ambulatory LAWSON RAMOS Facility:[facility] Start: 03-29-2025 End: 03-29-2025 Subsequent hospital visit by physician Colby [facility] Work Phone: Radiology Comment on above: Generalized weakness [R53.1] Start: 03-29-2025 End: 03-29-2025 Office outpatient visit 25 minutes Bhavya Liu APRN.BALING PRESS OPERATOR Work Phone: [facility] Comment on above: Generalized weakness (Primary Dx); Fatigue, unspecified type; Nonproductive cough; Oropharyngeal dysphagia; Poor appetite; Hypertension, essential; History of recurrent UTIs; Weight loss Start: 03-29-2025 End: 03-29-2025 ambulatory BHAVYA LIU Facility:[facility] Start: 03-16-2025 End: 03-16-2025 ambulatory Sandi Ang MA [facility] Start: 03-16-2025 End: 03-16-2025 Patient encounter procedure Sandi Ang MA [facility] Comment on above: Population Health Na vigation Outreach ([place]/Yessybearon/HIRAMO ) Start: 11-05-2024 End: 11-05-2024 Telephone encounter Lawson Ramos DO Work Phone: [facility] Start: 09-16-2024 End: 09-21-2024 Telephone encounter Lawson Ramos DO Work Phone: [facility] Comment on above: Insurance Authorizat ion (methocarbamol) Results Start: 09-16-2024 End: 09-16-2024 ambulatory LAWSON RAMOS Facility:[facility] Start: 09-16-2024 End: 09-16-2024 Patient encounter procedure Lawson Ramos DO Work Phone: [facility] Comment on above: Stage 3a chronic kid usman disease (HCC) (Primary Dx); Need for influenza vaccination; Vitamin B12 deficiency; Recurrent UTI (urinary tract infection); Chronic kidney disease, stage 3a (HCC); Borderline abnormal TFTs; Vitamin D deficiency; Hyperglycemia; Dyslipidemia; Late onset Alzheimer's disease without behavioral disturbance (HCC); Osteoarthritis of spine with radiculopathy, lumbar region; Osteoarthritis of spine with radiculopathy, thoracic region; Chronic midline low back pain without sciatica Start: 08-27-2024 End: 08-27-2024 Refill Lawson Ramos DO Work Phone: [facility] Comment on above: Refill Request Start: 08-14-2024 End: 08-14-2024 Refill Lawson Ramos DO Work Phone: [facility] Comment on above: Refill Request Start: 07-28-2024 End: 07-28-2024 Refill Lawson Ramos DO Work Phone: [facility] Comment on above: Refill Request Start: 06-29-2024 End: 06-29-2024 Refill Lawson Ramos DO Work Phone: [facility] Comment on above: Refill Request Start: 05-19-2024 Refill Lawson eli DO Work Phone: [facility] Comment on above: Refill Request Start: 05-05-2024 End: 05-05-2024 Emergency department patient visit Lawson Ramos Facility:[facility] Start: 03-25-2024 Telephone encounter Lawson lau DO Work Phone: [facility] Comment on above: Faxed to [facility] Refill Request Start: 03-16-2024 Refill Lawson eli DO Work Phone: [facility] Comment on above: Refill Request Start: 03-10-2024 Telephone encounter Lawson lau DO Work Phone: [facility] Comment on above: Insurance Authorizat ion (B12 injections ) Start: 03-10-2024 End: 03-10-2024 Patient encounter procedure Jayashree Remy COUNTER STITCHER.BALING PRESS OPERATOR Work Phone: [facility] Comment on above: Vasovagal syncope (P rimary Dx); Generalized weakness; Chronic kidney disease, stage 3a (HCC); Late onset Alzheimer's disease without behavioral disturbance (HCC) Start: 03-07-2024 ambulatory Kamini Hsieh Fa cility:[facility] Start: 03-07-2024 Non-patient / Non-visit Dr. Verna Ramos Work Phone: [place] [facility] Start: 03-05-2024 Telephone encounter Lawson lau DO Work Phone: [facility] Start: 03-04-2024 End: 03-04-[address] Lawson Ramos Work Phone: [facility] Work Phone: Start: 03-04-2024 End: 03-04-[address] Lawson Ramos Work Phone: [facility] Work Phone: Start: 02-28-2024 ambulatory Lawson eli DO Work Phone: [facility] Start: 02-28-2024 Telephone encounter Lawson lau DO Work Phone: [facility] Comment on above: Patient Request home health calling [facility] prescription problem (rollator) Start: 02-27-2024 ambulatory No Pcp COUNTER [employer]ER [facility] Start: 02-27-2024 Non-patient / Non-visit Dr. Verna Ramos Work Phone: [facility] Work Phone: Start: 02-27-2024 Non-patient / Non-visit Dr. Verna Ramos Work Phone: [place] [facility] Start: 02-26-2024 End: 02-27-2024 ambulatory Lawson Ramos Facility:[facility] Start: 02-26-2024 End: 02-27-2024 Evaluation and management of inpatient [facility] Work Phone: Start: 02-26-2024 End: 02-27-[address] Lawson Ramos Work Phone: [facility] Work Phone: Start: 02-24-2024 End: 02-24-2024 Patient encounter procedure Lawson Ramos DO Work Phone: [facility] Comment on above: Chronic midline low back pain without sciatica (Primary Dx); Recurrent UTI (urinary tract infection); Prophylactic antibiotic; Osteoarthritis of spine with radiculopathy, lumbar region; Osteoarthritis of spine with radiculopathy, thoracic region; Late onset Alzheimer's disease without behavioral disturbance (HCC); Ischemic colitis (HCC); Other cardiomyopathies (HCC); Malignant neoplasm of female breast, unspecified estrogen receptor status, unspecified laterality, unspecified site of breast (HCC); Chronic kidney disease, stage 3a (HCC) Start: 01-23-2024 Telephone encounter Lawson lau DO Work Phone: [facility] Comment on above: Patient Update Start: 11-13-2023 End: 11-13-2023 Subsequent hospital visit by physician Colby [facility] Work Phone: Radiology Comment on above: Chronic bilateral lo w back pain without sciatica [M54.50, G89.29] Start: 08-30-2023 End: 08-30-2023 Patient encounter procedure Lawson Ramos DO Work Phone: [facility] Comment on above: Hypertension, essent ial (Primary Dx); Anxiety as acute reaction to exceptional stress; Need for influenza vaccination; Vitamin B12 deficiency; Other cardiomyopathies (HCC); Chronic kidney disease, stage 3a (HCC); Late onset Alzheimer's disease without behavioral disturbance (HCC); Vitamin D deficiency; Dyslipidemia; Hyperglycemia; Age-related osteoporosis without current pathological fracture; Fatigue, unspecified type Start: 04-24-2023 Refill Lawson Kathy eli DO Work Phone: [facility] Comment on above: Refill Request Start: 02-26-2023 Refill Lawson eli DO Work Phone: [facility] Comment on above: Refill Request Start: 02-19-2023 Telephone encounter Lawson lau DO Work Phone: [facility] [place] Comment on above: Orders Start: 12-03-2022 Telephone encounter Sierra eli COUNTER STITCHER.BALING PRESS OPERATOR Work Phone: [facility] [place] Comment on above: Results Start: 11-30-2022 End: 11-30-2022 Subsequent hospital visit by physician [facility] Comment on above: Lump in chest [R22.2 ] Start: 11-28-2022 Telephone encounter Jayashree Chapman COUNTER STITCHER.BALING PRESS OPERATOR Work Phone: [facility] [place] Comment on above: Results Start: 11-28-2022 End: 11-28-2022 Subsequent hospital visit by physician Colby [facility] [place] Work Phone: Radiology Comment on above: Lump in chest [R22.2 ] Start: 11-28-2022 End: 11-28-2022 Patient encounter procedure Jayashree Remy COUNTER STITCHER.BALING PRESS OPERATOR Work Phone: [facility] [place] Comment on above: Lump in chest (Prima ry Dx); Hypertension, essential Start: 10-10-2022 Refill Lawson eli DO Work Phone: [facility] [place] Comment on above: Refill Request Start: 10-09-2022 Refill Sierra duran COUNTER STITCHER.BALING PRESS OPERATOR Work Phone: [facility] [place] Comment on above: Refill Request Start: 08-20-2022 End: 08-20-2022 Patient encounter procedure Lawson Kathy Caldwellon DO Work Phone: [facility] [place] Comment on above: Hypertension, essent ial (Primary Dx); Encounter for immunization; Recurrent UTI (urinary tract infection); Generalized weakness; Borderline abnormal TFTs; Vitamin D deficiency; Late onset Alzheimer's disease without behavioral disturbance (HCC); Dyslipidemia; Age-related osteoporosis without current pathological fracture; Actinic keratosis Start: 08-13-2022 Telephone encounter Lawson [facility]u DO [facility] Comment on above: Appointment Start: 06-28-2022 Telephone encounter Lawson lau DO Work Phone: [facility] Comment on above: Medication Question Start: 06-19-2022 Telephone encounter Lawson lau DO Work Phone: [facility] [place] Comment on above: Medication Problem Start: 06-13-2022 Telephone encounter Jayashree Chapman COUNTER STITCHER.BALING PRESS OPERATOR Work Phone: [facility] [place] Comment on above: Medication Question [facility] OT POC Start: 06-07-2022 Telephone encounter Lawson [facility]u DO [facility] Comment on above: OV notes need signat ure Start: 06-04-2022 Telephone encounter Jayashree Chapman COUNTER STITCHER.BALING PRESS OPERATOR Work Phone: [facility] Comment on above: fax home care rx/req uest Start: 06-04-2022 End: 06-04-2022 Subsequent hospital visit by physician Colby [facility] [place] Work Phone: Radiology Comment on above: Lung infiltrate [R91 .8] Start: 06-04-2022 End: 06-04-2022 Patient encounter procedure Jayashree Remy COUNTER STITCHER.BALING PRESS OPERATOR Work Phone: [facility] Comment on above: Recurrent UTI (urina ry tract infection) (Primary Dx); Generalized weakness; Hypertension, essential; Colon wall thickening; Lung infiltrate; Loose stools Start: 05-27-2022 Non-patient / Non-visit Lawson Leo [facility] Start: 05-26-2022 Non-patient / Non-visit [facility] Start: 05-26-2022 End: 05-28-2022 [facility] Start: 05-26-2022 Non-patient / Non-visit Lawson Felipa [facility] Start: 05-25-2022 [facility]-patient [facility] Start: 05-07-2022 Refill Lawson eli DO [facility] Comment on above: Refill Request Start: 03-16-2022 Refill Lawson eli DO Work Phone: [facility] Comment on above: Refill Request Start: 02-28-2022 End: 02-28-2022 Patient encounter procedure Lawson Caldwellon DO Work Phone: [facility] Comment on above: Hypertension, essent ial (Primary Dx); Anxiety as acute reaction to exceptional stress; Borderline abnormal TFTs; Vitamin D deficiency; Late onset Alzheimer's disease without behavioral disturbance (HCC); Dyslipidemia; Age-related osteoporosis without current pathological fracture; Cerebral microvascular disease; Fatigue, unspecified type; Actinic keratosis Start: 01-30-2022 Refill Lawson eli DO Work Phone: [facility] Comment on above: Refill Request Procedures Date Procedure Procedure Detail Performing Clinician Start: 03-04-2024 Cardiovascular stres s test using pharmacologic stress agent Dr. Lawson Ramos Work Phone: Start: 02-26-2024 CT angiography of he ad and neck Dr. Lawson Ramos Work Phone: Start: 02-26-2024 Plain chest X-ray Start: 11-13-2023 Radex spine lumbosac ral 2/3 views Jayashree Remy COUNTER STITCHER.BALING PRESS OPERATOR Work Phone: Start: 08-30-2023 INFLUENZA VACCINE, P RSV FREE, AGE 65+ YR, HIGH DOSE, QUADRIVALENT (FLUZONE HIGH-DOSE) Lawson Ramos DO Work Phone: Start: 11-28-2022 Radiologic exam ches t 2 views Jayashree Ghoshman COUNTER STITCHER.BALING PRESS OPERATOR Work Phone: Start: 06-04-2022 Radiologic exam ches t 2 views Jayashree Remy COUNTER STITCHER.BALING PRESS OPERATOR Work Phone: Start: 05-26-2022 Computed tomography of abdomen and pelvis with contrast Lawson Ramos Start: 05-25-2022 MRI of brain without contrast Lawson Ramos Start: 05-25-2022 CT angiography of he ad and neck Lawson Ramos Start: 05-25-2022 Plain chest X-ray Barbara kate Ramos Start: 05-25-2022 CT of head without contrast Lawson Ramos Urine culture Lawson love Plan of Treatment Date Care Activity Detail Author Start: 03-29-2028 Diabetes Screening Diabetes Screenin g [facility] Start: 09-16-2027 [facility] Start: 02-22-2026 DIABETES SCREEN DIABETES SCREEN [facility] Start: 02-22-2026 Diabetes Screening Diabetes Screennm g [facility] Start: 09-10-2025 End: 09-10-2025 Patient encounter procedure 09/10/2025 9:20 AM EDT Office Visit Family [facility] [place] [address], [place] [id number] Lawson Ramos DO [address] [place] [place], [place] [id number] Medicare WEllness [facility] Comment on above: Medicare WEllness Start: 08-11-2025 Covid-19 Vaccine ( season) Covid-19 Vaccine ( season) [facility] Comment on above: Postponed from 07/12 (Postponed - Not Clinically Indicated) Start: 08-11-2025 RSV Vaccine (1 - 1-d ose 75+ series) RSV Vaccine (1 - 1-dose 75+ series) [facility] Comment on above: Postponed from 06/18 (Postponed - Not Clinically Indicated) Start: 07-12-2025 Influenza vaccination Influenza Vacc ine (#1) [facility] Start: 06-04-2025 DIABETES SCREEN DIABETES SCREEN [facility] Start: 04-26-2025 End: 04-26-2025 Patient encounter procedure 04/26/2025 12:00 PM EDT Office Visit [facility] [place] [address], [place] [phone] Bhavya Liu APRN.BALING PRESS OPERATOR [address] [place], [place] [id number] 1 month follow up [facility] [place] Comment on above: 1 month follow up Start: 03-29-2025 End: 06-28-2025 Comprehensive metabolic 2000 panel - Serum or Plasma [facility] Comment on above: Expected: 03/29/2025 , Expires: 06/28/2025 Start: 03-29-2025 End: 06-28-2025 Urinalysis complete panel - Urine URINALYSIS (WITH MICROSCOPIC) WITH CULTURE IF INDICATED Lab Routine Generalized weakness Fatigue, unspecified type Poor appetite History of recurrent UTIs Weight loss Expected: 03/29/2025, Expires: 06/28/2025 [facility] Comment on above: Expected: 03/29/2025 , Expires: 06/28/2025 Start: 03-15-2025 End: 03-15-2025 Patient encounter procedure 03/15/2025 10:00 AM EDT Office Visit Family Medicine [place] [address], [place] [phone] Lawson Ramos DO [address] [place], [place] [id number] 6 month follow up Family [facility] Comment on above: 6 month follow up Start: 02-23-2025 Covid-19 Vaccine () Covid-19 Vaccine () [facility] Comment on above: Postponed from 07/12 (Declined at this time) Start: 11-11-2024 Advance Directive Discussion Advance Directive Discussion [facility] Start: 11-11-2024 Medicare Advantage A nnual Wellness Visit Medicare Advantage Annual Wellness Visit [facility] Start: 09-16-2024 End: 12-16-2024 25-hydroxyvitamin D3 [Mass/volume] in Serum or Plasma [facility] Comment on above: Expected: 09/16/2024 , Expires: 12/16/2024 Start: 09-16-2024 End: 12-16-2024 Comprehensive metabolic 2000 panel - Serum or Plasma [facility] Work Phone: Comment on above: Expected: 09/16/2024 , Expires: 12/16/2024 Start: 09-16-2024 End: 12-16-2024 Hemoglobin A1c in Blood [facility] Comment on above: Expected: 09/16/2024 , Expires: 12/16/2024 Start: 09-16-2024 End: 12-16-2024 LIPID PANEL, NONFASTING [facility] Comment on above: Expected: 09/16/2024 , Expires: 12/16/2024 Start: 09-16-2024 End: 12-16-2024 Magnesium [Mass/volume] in Serum or Plasma [facility] Comment on above: Expected: 09/16/2024 , Expires: 12/16/2024 Start: 09-16-2024 End: 12-16-2024 Thyrotropin [Units/volume] in Serum or Plasma [facility] Comment on above: Expected: 09/16/2024 , Expires: 12/16/2024 Start: 09-16-2024 End: 12-16-2024 Urinalysis complete panel - Urine [facility] Comment on above: Expected: 09/16/2024 , Expires: 12/16/2024 Start: 09-16-2024 End: 09-16-2024 Patient encounter procedure 09/16/2024 10:20 AM EST Office Visit Family Medicine [place] [address] [place] [address] Lawson Ramos DO [address] [place] [id number] 6 Month follow up [facility] [place] Comment on above: 6 Month follow up Start: 08-15-2024 DIABETES SCREEN DIABETES SCREEN [facility] Start: 07-12-2024 Covid-19 Vaccine ( season) Covid-19 Vaccine ( season) [facility] Start: 07-12-2024 Covid-19 Vaccine ( season) Covid-19 Vaccine () [facility] Start: 07-12-2024 Influenza vaccination Influenza Vacc ine (#1) [facility] Start: 03-10-2024 End: 03-10-2024 Patient encounter procedure 03/10/2024 11:40 AM EDT Office Visit Family [facility] [address] [place] [address] Jayashree Remy APRN.BALING PRESS OPERATOR [address] [facility] [place] [address] [facility] FU d/c 02/27/24 Passed out at home [facility] [place] Comment on above: [facility] FU d/c 02/27/24 P assed out at home Start: 03-01-2024 End: 05-31-2024 25-hydroxyvitamin D3 [Mass/volume] in Serum or Plasma VITAMIN D 25 HYDROXY Lab Routine Vitamin D deficiency Expected: 03/01/2024, Expires: 05/31/2024 [facility] Work Phone: Comment on above: Expected: 03/01/2024 , Expires: 05/31/2024 Start: 03-01-2024 End: 05-31-2024 CBC panel - Blood by Automated count CBC Lab Routine Dyslipidemia Expected: 03/01/2024, Expires: 05/31/2024 [facility] Work Phone: Comment on above: Expected: 03/01/2024 , Expires: 05/31/2024 Start: 03-01-2024 End: 05-31-2024 Cobalamin (Vitamin B12) [Mass/volume] in Serum or Plasma VITAMIN B12 BLOOD Lab Routine Vitamin B12 deficiency Expected: 03/01/2024, Expires: 05/31/2024 [facility] Work Phone: Comment on above: Expected: 03/01/2024 , Expires: 05/31/2024 Start: 03-01-2024 End: 05-31-2024 Comprehensive metabolic 2000 panel - Serum or Plasma COMP METABOLIC PANEL Lab Routine Dyslipidemia Expected: 03/01/2024, Expires: 05/31/2024 [facility] Work Phone: Comment on above: Expected: 03/01/2024 , Expires: 05/31/2024 Start: 03-01-2024 End: 05-31-2024 Hemoglobin A1c in Blood HGB A1C Lab Routine Hyperglycemia Expected: 03/01/2024, Expires: 05/31/2024 [facility] Work Phone: Comment on above: Expected: 03/01/2024 , Expires: 05/31/2024 Start: 03-01-2024 End: 05-31-2024 Lipid 1996 panel - Serum or Plasma LIPID PANEL BASIC Lab Routine Dyslipidemia Expected: 03/01/2024, Expires: 05/31/2024 [facility] Work Phone: Comment on above: Expected: 03/01/2024 , Expires: 05/31/2024 Start: 02-27-2024 Referral to service [facility] Start: 02-27-2024 Patient discharge [facility] Start: 02-27-2024 NM Heart Views W str ess and W radionuclide IV [facility] Start: 02-27-2024 [facility] Start: 02-27-2024 Referral to veneer sheet repairer [facility] Start: 02-26-2024 Following clinical p athway protocol [facility] Start: 02-26-2024 Ambulation without limitation [facility] Start: 02-26-2024 Assessment of risk o f venous thromboembolism [facility] Start: 02-26-2024 Cardiac monitoring [facility] Start: 02-26-2024 Insertion of cathete r into peripheral vein [facility] Start: 02-26-2024 Oxygen therapy [facility] Start: 02-26-2024 Providing care accor ding to standard [facility] Start: 02-26-2024 Referral to occupati onal therapist [facility] Start: 02-26-2024 Referral to service [facility] Start: 02-26-2024 [facility] Start: 02-26-2024 Verification routine [facility] Start: 02-26-2024 Hospital admission, emergency, from emergency room, medical nature [facility] Start: 02-26-2024 Admission procedure [facility] Start: 02-26-2024 [facility] Start: 11-11-2023 Advance Directive Discussion Advance Directive Discussion [facility] Start: 07-12-2023 Covid-19 Vaccine () Covid-19 Vaccine () [facility] Start: 11-11-2022 ADVANCE DIRECTIVE DISCUSSION ADVANCE DIRECTIVE DISCUSSION [facility] Start: 08-30-2022 End: 10-30-2022 CBC panel - Blood by Automated count CBC Lab Routine Hypertension, essential Dyslipidemia Expected: 08/30/2022, Expires: 10/30/2022 [facility] Work Phone: Comment on above: Expected: 08/30/2022 , Expires: 10/30/2022 Start: 08-30-2022 End: 10-30-2022 Comprehensive metabolic 2000 panel - Serum or Plasma COMP METABOLIC PANEL Lab Routine Hypertension, essential Dyslipidemia Expected: 08/30/2022, Expires: 10/30/2022 [facility] Work Phone: Comment on above: Expected: 08/30/2022 , Expires: 10/30/2022 Start: 08-30-2022 End: 10-30-2022 LIPID PANEL BASIC LIPID PANEL BASIC Lab Routine Dyslipidemia Expected: 08/30/2022, Expires: 10/30/2022 [facility] Work Phone: Comment on above: Expected: 08/30/2022 , Expires: 10/30/2022 Start: 08-30-2022 End: 10-30-2022 VITAMIN B12 BLOOD VITAMIN B12 BLOOD Lab Routine Fatigue, unspecified type Expected: 08/30/2022, Expires: 10/30/2022 [facility] Work Phone: Comment on above: Expected: 08/30/2022 , Expires: 10/30/2022 Start: 08-30-2022 End: 10-30-2022 VITAMIN D 25 HYDROXY VITAMIN D 25 HYDROXY Lab Routine Vitamin D deficiency Fatigue, unspecified type Expected: 08/30/2022, Expires: 10/30/2022 [facility] Work Phone: Comment on above: Expected: 08/30/2022 , Expires: 10/30/2022 Start: 07-12-2022 Influenza vaccination INFLUENZA (#1) [facility] Start: 05-28-2022 Patient discharge [facility] Work Phone: Start: 05-27-2022 Enteric precautions [facility] Work Phone: Start: 05-27-2022 [facility] Work Phone: Start: 05-26-2022 Admission procedure [facility] Work Phone: Start: 05-26-2022 Application of intermittent pneumatic compression device [facility] Work Phone: Start: 05-26-2022 [facility] Work Phone: Start: 05-26-2022 Referral to gastroenterology service [facility] Work Phone: Start: 05-25-2022 Following clinical p athway protocol [facility] Work Phone: Start: 05-25-2022 Ambulation without limitation [facility] Work Phone: Start: 05-25-2022 Assessment of risk o f venous thromboembolism [facility] Work Phone: Start: 05-25-2022 Incentive spirometry [facility] Work Phone: Start: 05-25-2022 Insertion of cathete r into peripheral vein [facility] Work Phone: Start: 05-25-2022 Measuring intake and output [facility] Work Phone: Start: 05-25-2022 Oxygen therapy [facility] Work Phone: Start: 05-25-2022 Providing care accor ding to standard [facility] Work Phone: Start: 05-25-2022 Referral to service [facility] Work Phone: Start: 05-25-2022 [facility] Work Phone: Start: 05-25-2022 Admission procedure [facility] Work Phone: Start: 11-11-2021 ADVANCE DIRECTIVE DISCUSSION ADVANCE DIRECTIVE DISCUSSION [facility] Start: 07-12-2021 Influenza vaccination INFLUENZA (#1) [facility] Start: 06-25-2021 COVID-19 VACCINE (3 - Booster for Pfizer series) COVID-19 VACCINE (3 - Booster for Pfizer series) [facility] Start: 05-25-2021 COVID-19 VACCINE (4 - Booster for Pfizer series) COVID-19 VACCINE (4 - Booster for Pfizer series) [facility] Start: 03-20-2021 COVID-19 VACCINE (4 - Booster for Pfizer series) COVID-19 VACCINE (4 - Booster for Pfizer series) [facility] Start: 2014 RSV Vaccine (1 - 1-d ose 75+ series) RSV Vaccine (1 - 1-dose 75+ series) [facility] Start: 06-12-2014 Screening for osteoporosis Bone Dens ity Screening [facility] Start: 1999 RSV Vaccine (1 - 1-d ose 60+ series) RSV Vaccine (1 - 1-dose 60+ series) [facility] Start: 1989 SHINGRIX VACCINE (1 of 2) QUINONES GRIX VACCINE (1 of 2) [facility] Start: 1958 Urine microalbumin profile [facility] End: 08-20-2023 Bacteria identified in Urine by Culture URINE CULTURE Microbiology Routine Recurrent UTI (urinary tract infection) Every other week for 24 Occurrences starting 08/20/2022 until 08/20/2023 [facility] Work Phone: Comment on above: Every other week for 24 Occurrences starting 08/20/2022 until 08/20/2023 End: 04-07-2026 Bacteria identified in Urine by Culture BACTERIAL CULTURE, URINE Microbiology Routine Recurrent UTI (urinary tract infection) Once per week for 50 Occurrences starting 04/07/2025 until 04/07/2026 [facility] Work Phone: Comment on above: Once per week for 50 Occurrences starting 04/07/2025 until 04/07/2026 Bacteria identified in Urine by Culture BACTERIAL CULTURE, URINE Microbiology Routine Recurrent UTI (urinary tract infection) 04/08/2025 10:49 AM EDT [facility] End: 08-20-2023 CBC W Auto Differential panel - Blood CBC + DIFF Lab Routine Recurrent UTI (urinary tract infection) Every other week for 24 Occurrences starting 08/20/2022 until 08/20/2023 [facility] Work Phone: Comment on above: Every other week for 24 Occurrences starting 08/20/2022 until 08/20/2023 Clostridioides diffi cile toxin genes [Presence] in Stool by WYATT with probe detection C. DIFFICILE PCR Lab Routine Loose stools Colon wall thickening Ordered: 06/04/2022 [facility] Work Phone: Comment on above: Ordered: 06/04/2022 End: 08-20-2023 Comprehensive metabolic 2000 panel - Serum or Plasma COMP METABOLIC PANEL Lab Routine Recurrent UTI (urinary tract infection) Every other week for 24 Occurrences starting 08/20/2022 until 08/20/2023 [facility] Work Phone: Comment on above: Every other week for 24 Occurrences starting 08/20/2022 until 08/20/2023 ENTERIC BACTERIAL PA TRELL BY PCR ENTERIC BACTERIAL PANEL BY PCR Lab Routine Loose stools Colon wall thickening 06/05/2022 3:37 PM EDT [facility] Work Phone: INFLUENZA SEASONAL QUADRIVALENT HIGH DOSE AGE 65+ INFLUENZA SEASONAL QUADRIVALENT HIGH DOSE AGE 65+ Immunization/Injection Routine Encounter for immunization Ordered: 08/20/2022 [facility] Work Phone: Comment on above: Ordered: 08/20/2022 Ova and parasites identified in Unspecified specimen by Light microscopy OVA + PARA MICROSCOPIC Microbiology Routine Loose stools Colon wall thickening 06/05/2022 3:37 PM EDT [facility] Work Phone: Patient referral [facility] Work Phone: End: 08-20-2023 Urinalysis complete panel - Urine URINALYSIS, WITH MICROSCOPIC Lab Routine Recurrent UTI (urinary tract infection) Every other week for 24 Occurrences starting 08/20/2022 until 08/20/2023 [facility] Work Phone: Comment on above: Every other week for 24 Occurrences starting 08/20/2022 until 08/20/2023 End: 04-07-2026 Urinalysis complete panel - Urine URINALYSIS, WITH MICROSCOPIC Lab Routine Recurrent UTI (urinary tract infection) Once per week for 50 Occurrences starting 04/07/2025 until 04/07/2026 [facility] Comment on above: Once per week for 50 Occurrences starting 04/07/2025 until 04/07/2026 Urinalysis complete panel - Urine URINALYSIS, WITH MICROSCOPIC Lab Routine Recurrent UTI (urinary tract infection) 04/08/2025 10:49 AM EDT [facility] End: 12-28-2023 Us chest real time w/image documentation US CHEST WALL/SOFT TISSUE Radiology Routine Lump in chest 1 Occurrences starting 11/28/2022 until 12/28/2023 [facility] Work Phone: Comment on above: 1 Occurrences starti ng 11/28/2022 until 12/28/2023 End: 11-30-2022 Us chest real time w/image documentation [facility] Work Phone: Comment on above: 1 Occurrences starti ng 11/30/2022 until 11/30/2022 End: 04-28-2026 XR Chest PA and Lateral XR CHEST 2V FRONTAL/LAT Radiology Routine Generalized weakness Fatigue, unspecified type Nonproductive cough Oropharyngeal dysphagia Poor appetite Weight loss 1 Occurrences starting 03/29/2025 until 04/28/2026 [facility] Work Phone: Comment on above: 1 Occurrences starti ng 03/29/2025 until 04/28/2026 XR Chest PA and Lateral XR CHEST 2V FRONTAL/LAT Radiology Routine Generalized weakness Fatigue, unspecified type Nonproductive cough Oropharyngeal dysphagia Poor appetite Weight loss 03/29/2025 12:35 PM EDT [facility] Immunizations Immunization Date Immunization Notes Care Provider Riley pichardo 09-16-2024 influenza, high dose seasonal, preservative-free Lawson Ramos DO Work Phone: [facility] 09-16-2024 influenza virus vacc ine, unspecified formulation Bhavya Liu APRN.BALING PRESS OPERATOR Work Phone: [facility] 08-30-2023 influenza (HD-IIV4) vaccine, age 65+ yr, high dose, quadrivalent, PF (FLUZONE HIGH-DOSE) Lawson Ramos DO Work Phone: [facility] Work Phone: 10-20-2023 influenza virus vacc ine, unspecified formulation Lawson Neilrison DO Work Phone: [facility] 03-07-2021 zoster vaccine, recombinant, adjuvanted, (SHINGRIX, PF,) 50 mcg/0.5 mL injection Lawson Ramos DO Work Phone: [facility] Work Phone: Comment on above: Inject 0.5 mL intram uscularly now and repeat 2nd dose in 2-6 months 01-23-2021 COVID-19 vaccine, ag e 12+ yr (PFIZER-BIONTECH - PURPLE TOP) Lawson Neilrison DO Work Phone: [facility] Work Phone: 01-01-2021 COVID-19 vaccine, ag e 12+ yr (PFIZER-BIONTECH - PURPLE TOP) Lawson Neilrison DO Work Phone: [facility] Work Phone: 12-24-2020 Covid (Pfizer) [facility] 12-03-2020 Covid (Pfizer) [facility] 09-15-2020 pneumococcal polysaccharide vaccine, 23 valent Lawson Neilrison DO Work Phone: [facility] Work Phone: 11-03-2019 pneumococcal conjuga te vaccine, 13 valent Lawson Neilrison DO Work Phone: [facility] Work Phone: 09-11-2019 influenza, high dose seasonal, preservative-free Lawson Neilrison DO Work Phone: [facility] 05-06-2009 pneumococcal polysaccharide vaccine, 23 valent Lawson Neilrison DO Work Phone: [facility] Work Phone: NEGATED: Highlighted row has not occurred!08-21-2022 influenza, high-dose, quadrivalent vaccine (FLUZONE HIGH DOSE QUADRIVALENT) Lawson Neilrison DO Work Phone: [facility] Work Phone: Comment on above: Deferred: Postponed Payers Date Payer Category Payer Medicare (Managed Care) MMO [employer] HMO [id number] 2024 Unknown [id number] 2024 Self-pay [id number] 2020 Unknown MMO MMO MEDICARE SUPPLEMENT [id number] 2020-Present [phone] [address] [place] [address] Indemnity [id number] 2020 Unknown [id number] 2012 Unknown HOSPITAL/MEDICAL GENERIC MEDICAL GENERIC [id number] 2012-Present [address] [place] [address] Indemnity [id number] 2012 Unknown [id number] 2004 Medicare MEDICARE MEDICAR E A AND B [id number] 2004-Present [phone] [place] [address] Medicare [id number] 2004 Medicare MEDICARE MEDICAR E A AND B [id number] 2004-Present [phone] [place] [address] Medicare [id number] 2004 Medicare [id number] Unknown [id number] Unknown [id number] Unknown [id number] Unknown [id number] Unknown [id number] Unknown [id number] Unknown [id number] Unknown [id number] Social History Date Type Detail Facility Start: 05-29-2012 End: 11-28-2022 Tobacco smoking status NHIS Never smoked tobacco [facility] Start: 08-23-2021 End: 09-16-2024 Alcohol intake Current non-drinker of alcohol (finding) [facility] Start: 02-20-2021 End: 02-22-2023 History SDOH Alcohol Binge 1 [facility] Start: 02-20-2021 End: 06-04-2022 History SDOH Social Connections Phone 5 [facility] Start: 02-20-2021 End: 02-22-2023 History SDOH Social Connections Meetings 2 [facility] Start: 02-20-2021 End: 02-22-2023 History SDOH Social Connections Living 3 [facility] Start: 02-20-2021 End: 02-22-2023 History SDOH Physical Activity DPW 0 [facility] Start: 02-20-2021 Education 12 [facility] Start: 1940 Sex Assigned At Not on file [facility] Start: 02-18-2022 End: 06-04-2022 Exposure to SARS-CoV-2 (event) Not sure [facility] Work Phone: Start: 05-25-2022 End: 02-26-2024 Tobacco smoking status NHIS Unknown if ever smoked [facility] Start: 06-07-2020 None [facility] Start: 06-07-2020 Spouse/ Significant Other [facility] Start: 06-07-2020 Non-smoker [facility] Start: 1940 Sex Assigned At Female [facility] Start: 06-04-2022 History SDOH Alcohol Std Drinks 98 [facility] Start: 05-29-2012 End: 11-28-2022 Tobacco use and exposure Smokeless tobacco non-user [facility] Start: 11-26-2022 End: 02-21-2023 History of Social function [facility] Start: 11-26-2022 End: 02-21-2023 Social connection and isolation panel [facility] Do you belong to any clubs or organizations such as hindu groups, unions, fraternal or athletic groups, or school groups? Yes [facility] Are you now , , , , never or living with a partner? [facility] How often to you hav e a drink containing alcohol? Never [facility] Start: 10-12-2012 How many standard drinks containing alcohol do you have on a typical day? Patient does not drink [facility] Do you feel stress - tense, restless, nervous, or anxious, or unable to sleep at night because your mind is troubled all the time - these days [OSQ] Not at all [facility] (I/We) worried whebala er (my/our) food would run out before (I/we) got money to buy more. Never true [facility] At any time in the p ast 12 months, were you homeless or living in fdc [including now]? No [facility] Medical Equipment Procedure Code Equipment Code Equipment Origin al Text Equipment Identifier Dates 1 Syringe as directed. [id number] Start: 08-31-2023 End: 11-29-2023 Comment on above: 1 Syringe as virialex toni Goals Date Patient Goal Desired Activity /State Functional Status Date Assessment Result Facility 02-27-2024 Functional status [facility] Work Phone: 05-28-2022 Functional status Activity Abili ty Unable to Assess [facility] Work Phone: 05-28-2022 Functional status [facility] Work Phone: 03-28-2015 Are you deaf, or do you have serious difficulty hearing No 03/28/2015 3:03 PM EDT Kika Rawls Ma No [facility] 03-28-2015 Are you blind, or do you have serious difficulty seeing, even when wearing glasses No 03/28/2015 3:03 PM EDT Kika Rawls Ma [facility] 03-28-2015 Do you have serious difficulty walking or climbing stairs No 03/28/2015 3:03 PM EDT Kika Rawls Ma No [facility] 03-28-2015 Do you have difficul ty dressing or bathing No 03/28/2015 3:03 PM EDT Kika Rawls Ma [facility] 03-28-2015 Because of a physica l, mental, or emotional condition, do you have difficulty doing errands alone such as visiting a physician's office or shopping No 03/28/2015 3:03 PM EDT Kika Rawls Ma No [facility] Mental Status Date Assessment Result Facility 02-27-2024 Cognitive function Voice/Name [facility] Work Phone: 02-26-2024 Cognitive function Level Of Cons ciousness Awake;Alert;Appropriate;Fol lows Commands [facility] Work Phone: 05-28-2022 Cognitive function Awake;Alert;A ppropriate;Fol lows Commands [facility] Work Phone: 05-28-2022 Cognitive function Voice/Name [facility] Work Phone: 03-28-2015 Because of a physica l, mental, or emotional condition, do you have serious difficulty concentrating, remembering, or making decisions No 03/28/2015 3:03 PM EDT [facility], Kika No [facility] Clinical Notes 12-08-2019 to 07-16-2025 Telephone Encounter - Nona Sinclair LPN - 07/16/2025 8:02 AM EDTTelephone Encounter - Nona Sinclair LPN - 07/16/2025 8:02 AM EDTTelephone Encounter - Keara Garza - 07/15/2025 3:19 PM EDT Note Date & Type Note Facility 07-16-2025 Telephone encounter Note Prescription Refill Information The patient has been identified by name and date of : Yes Caregiver verified no other encounters exist for this prescription request: Yes Caregiver confirmed with patient/requestor that no other refills are due, in the near future, with this provider at this time: Yes The last office visit in the department: 04/26/25 Does the patient have a future office visit with this provider/department: Yes Requested Prescriptions Pending Prescriptions Disp Refills methocarbamol (ROBAXIN) 500 mg tablet 60 tablet 3 Sig: Take 1/2 to 1 tablet twice daily as needed for back pain, spasms Nona Sinclair LPN July 16, 2025 8:02 AM [facility] 07-16-2025 Miscellaneous Notes Prescription Refill Information The patient has been identified by name and date of : Yes Caregiver verified no other encounters exist for this prescription request: Yes Caregiver confirmed with patient/requestor that no other refills are due, in the near future, with this provider at this time: Yes The last office visit in the department: 04/26/25 Does the patient have a future office visit with this provider/department: Yes Requested Prescriptions Pending Prescriptions Disp Refills methocarbamol (ROBAXIN) 500 mg tablet 60 tablet 3 Sig: Take 1/2 to 1 tablet twice daily as needed for back pain, spasms Nona Sinclair LPN July 16, 2025 8:02 AM Prescription Refill Information The patient has been identified by name and date of : Yes Caregiver verified no other encounters exist for this prescription request: Yes Caregiver confirmed with patient/requestor that no other refills are due, in the near future, with this provider at this time: Yes The last office visit in the department: 04/26/25 Does the patient have a future office visit with this provider/department: Yes Requested Prescriptions Pending Prescriptions Disp Refills methocarbamol (ROBAXIN) 500 mg tablet 60 tablet 3 Sig: Take 1/2 to 1 tablet twice daily as needed for back pain, spasms Keara [facility] July 15, 2025 3:19 PM documented in this encounter [facility] 07-15-2025 Telephone encounter Note Prescription Refill Information The patient has been identified by name and date of : Yes Caregiver verified no other encounters exist for this prescription request: Yes Caregiver confirmed with patient/requestor that no other refills are due, in the near future, with this provider at this time: Yes The last office visit in the department: 04/26/25 Does the patient have a future office visit with this provider/department: Yes Requested Prescriptions Pending Prescriptions Disp Refills methocarbamol (ROBAXIN) 500 mg tablet 60 tablet 3 Sig: Take 1/2 to 1 tablet twice daily as needed for back pain, spasms Keara [facility] July 15, 2025 3:19 PM [facility] 06-28-2025 Telephone encounter Note Patient's daughter notified of results and provider's instructions. Patient's daughter verbalizes understanding. Suzie Baxter RN [facility] 06-28-2025 Miscellaneous Notes Patient's daughter notified of results and provider's instructions. Patient's daughter verbalizes understanding. Suzie Baxter RN UA and urine culture show no UTI or infection. I would recommend making office visit appointment to address her symptoms. Thank you, Sierra Pedroza APRN.BALING PRESS OPERATOR Patient's Daughter Mallorie calls and states that patient has been more fatigued and tired than usual. Mallorie thought that patient may have a UTI so she had brought a urine sample in yesterday (06/27/2025). Urine Culture is still pending currently. Latest Ref Rng 06/25/2025 Color Yellow Yellow Clarity Clear Clear Glucose, Urine Negative Negative Bilirubin, Urine Negative Negative Ketones, Urine Negative Negative Specific [place], Ur 1.005 - 1.030 1.014 Hemoglobin/Blood,Ur Negative Negative pH, Urine 5.0 - 8.0 6.0 Protein, Urine Negative Negative Urobilinogen 0.2-1.0 EU/dL 0.2 EU/dL Nitrites Negative Negative Leukest Negative Negative WBC, Urine 0-5 /HPF 0-5 /HPF RBC, Urine 0-2 /HPF 0-2 /HPF Bacteria Negative /HPF Negative Epithelial Cells /HPF Moderate Hyaline Cast 0 /LPF 1-3 /LPF ! Please review and advise, Suzie Baxter RN documented in this encounter [facility] 06-28-2025 Telephone encounter Note UA and urine culture show no UTI or infection. I would recommend making office visit appointment to address her symptoms. Thank you, Sierra Pedroza APRN.BALING PRESS OPERATOR [facility] Work Phone: 06-26-2025 Telephone encounter Note Patient's Daughter Mallorie calls and states that patient has been more fatigued and tired than usual. Mallorie thought that patient may have a UTI so she had brought a urine sample in yesterday (06/27/2025). Urine Culture is still pending currently. Latest Ref Rng 06/25/2025 Color Yellow Yellow Clarity Clear Clear Glucose, Urine Negative Negative Bilirubin, Urine Negative Negative Ketones, Urine Negative Negative Specific [place], Ur 1.005 - 1.030 1.014 Hemoglobin/Blood,Ur Negative Negative pH, Urine 5.0 - 8.0 6.0 Protein, Urine Negative Negative Urobilinogen 0.2-1.0 EU/dL 0.2 EU/dL Nitrites Negative Negative Leukest Negative Negative WBC, Urine 0-5 /HPF 0-5 /HPF RBC, Urine 0-2 /HPF 0-2 /HPF Bacteria Negative /HPF Negative Epithelial Cells /HPF Moderate Hyaline Cast 0 /LPF 1-3 /LPF ! Please review and advise, Suzie Baxter RN [facility] 04-26-2025 History of Presen t illness Narrative This is a 84 year old female who presents today with: One month follow up from fatigue, UTI HISTORY OF PRESENT ILLNESS: Office visit with this provider 03/29, assessment and plan: ASSESSMENT/PLAN 1. Generalized weakness (R53.1) 2. Fatigue, unspecified type (R53.83) - Generalized weakness and fatigue noted, likely multifactorial due to current illness and decreased nutritional intake. - discussed decline related to being sick and advanced age -CBC, CMP, Urinalysis, Chest XR 3. Nonproductive cough (R05.8) - Persistent for 3 weeks, exacerbated by oral intake. - Lungs auscultated with mild wheezing on expiration. - Ordered chest X-ray to evaluate for potential underlying causes such as pneumonia - Prescribed Tessalon Perles, one capsule up to three times daily as needed for cough suppression. 4. Oropharyngeal dysphagia (R13.12) - Cough triggered by swallowing, more pronounced with fluids than solids. - Monitor for any signs of aspiration or worsening dysphagia. -Aspiration risk, daughters understand the same 5. Poor appetite (R63.0) - Significant decrease in oral intake, with early satiety reported. - Encourage small, frequent meals and adequate hydration. May supplement in boost or ensure 6. Hypertension, essential (I10) - Blood pressure elevated during visit, likely secondary to acute illness. - Recheck blood pressure once acute symptoms resolve, daughters do monitor at home 7. History of recurrent UTIs (Z87.440) - Ordered urinalysis to rule out current UTI as a contributing factor to fatigue and weakness. - Continue current prophylactic regimen; adjustments to be made based on urinalysis results. 8. Weight loss (R63.4) - Approximately 10 lbs weight loss since last visit per daughters, likely due to decreased oral intake and acute illness. - Monitor weight; expect stabilization and potential weight gain with resolution of illness and improved nutrition. Daughters say this was a rapid weight change. Todays visit Fatigue: - Increased fatigue today compared to the past few weeks - Had an active weekend from Saturday to Saturday. Chest Discomfort: - Occasional chest discomfort. - Occasional belching noted. Dysphagia: - Difficulty swallowing pills. Weight Loss: - Montserrat's weight was 133.4 lbs on 03/29; previously 146 lbs in September. - Appetite has improved recently. UTI: - Recent UTI; Montserrat's urine rechecked and was clear. - On prophylactic medication three times a week to prevent UTIs, daughter concerned if this medication needs adjusted or changed PAST MEDICAL HISTORY: PAST MEDICAL HISTORY Diagnosis Date Anxiety Benign essential hypertension Bunion CHF (congestive heart failure) (HCC) Chronic kidney disease, stage III (moderate) (HCC) Decreased GFR Diverticulosis of colon (without mention of hemorrhage) Dysuria Fatigue Internal hemorrhoids without mention of complication Low back pain Memory loss Mild cognitive impairment Neuralgia and neuritis Nevus, non-neoplastic Osteopenia Overactive bladder PMH - PAST MEDICAL HISTORY OF temporomandibular joint disorders PMH - PAST MEDICAL HISTORY OF 2003 breast cancer - with chemotherapy and right mastectomy Pneumonia, organism unspecified(486) Middle of February Raynaud's syndrome Seborrheic keratosis Secondary cardiomyopathy, unspecified Vitamin D deficiency PAST SURGICAL HISTORY Procedure Laterality Date COLONOSCOPY FLX DX W/COLLJ SPEC WHEN PFRMD 10/14/07 HYSTERECTOMY N/A 1983 Partial PAST SURGICAL HISTORY OF 1991 breast bx PAST SURGICAL HISTORY OF 2003 breast cancer right/chemotherapy PAST SURGICAL HISTORY OF May 2010 Port removed ALLERGIES Patient has no known allergies. MEDICATIONS Current Outpatient Medications Medication Sig sertraline (ZOLOFT) 50 mg tablet Take 1 tablet by mouth daily at bedtime. lisinopril (ZESTRIL) 10 mg tablet Take 1 tablet by mouth once daily. cephALEXin (KEFLEX) 250 mg capsule Take 1 capsule by mouth 3 days per week: Saturday, Saturday, Saturday. amLODIPine (NORVASC) 5 mg tablet Take 1 tablet by mouth every afternoon. methocarbamol (ROBAXIN) 500 mg tablet Take 1/2 to 1 tablet twice daily as needed for back pain, spasms metoprolol succinate ER (TOPROL XL) 25 mg 24 hr tablet Take 1 tablet by mouth two times a day. cyanocobalamin 1,000 mcg/mL Inject 1 mL intramuscularly every 2 weeks. Walker (ULTRA-LIGHT ROLLATOR) misc 1 Device as directed. Dx: balance disorder, chronic back pain, gait disorder X-rays were taken of the Thoracic and Lumbar areas and showed degenerative/arthritic changes as well as scoliosis of lower thoracic and lumbar spine. dx chronic bilateral low back pain dexAMETHasone (DEXASOL) 0.1 % ophthalmic solution 1 Drop two times a week. Instill into ear canals, NOT EYES, for eczema of ear canals metoprolol tartrate, short acting, (LOPRESSOR) 50 mg tablet Take 1 tablet by mouth two times a day. (Patient taking differently: Take 25 mg by mouth two times a day.) lidocaine (SALONPAS) 4 % patch Apply 1 application as directed once daily. metroNIDAZOLE 0.75 % cream Apply to affected area twice daily. For face for rosacea atorvastatin (LIPITOR) 40 mg tablet Take by mouth. albuterol HFA (VENTOLIN HFA) 90 mcg/actuation inhaler Inhale 2 Puffs as instructed every 4 hours as needed for Wheezing/Shortness of Breath. ergocalciferol, vitamin D2, (DRISDOL) 50,000 unit capsule Take 1 capsule by mouth once each week. Current Facility-Administered Medications Medication Dose Route Frequency benzonatate 100 mg cap(s) (TESSALON PERLE) 100 mg ORAL TID PRN FAMILY HISTORY Problem Relation Age of Onset Cancer Mother lynphoma Diabetes Father Cancer Father brain Diabetes Brother Skin Cancer Brother Melanoma No Known Problems Daughter No Known Problems Daughter No Known Problems Son Social History Tobacco Use Smoking status: Never Smokeless tobacco: Never Vaping Use Vaping status: Never Used Substance Use Topics Alcohol use: No Drug use: No REVIEW OF SYSTEMS Constitutional: (+) fatigue, (+) weight loss Cardiovascular: (+) chest pain Respiratory: (-) shortness of breath Gastrointestinal: (+) belching, (+) dysphagia, (-) decreased appetite Genitourinary: (-) dysuria EXAM: BP 122/62 Pulse 68 Resp 16 Wt 60.8 kg (134 lb) SpO2 96% BMI 23.16 kg/m PHYSICAL EXAM: General Appearance: Well appearing, alert, in no acute distress, she appears her stated age. Well groomed, quiet, pleasant. Lungs: Lungs clear to auscultation. No wheezing, rhonchi, rales.. Diminished throughout Heart: RRR without murmur, gallop, or rubs. No ectopy. Extremities: No deformities, soft edema above sockline and nonpitting, Lower extremities at ankle feet are purple discoloration, denies pain, skin warm/dry ASSESSMENT/PLAN 1. Fatigue, unspecified type (R53.83) - Fatigue is improving, though patient is experiencing increased tiredness today following an active weekend. - Continue monitoring energy levels; no immediate intervention required. 2. Anxiety as acute reaction to exceptional stress (F41.1) - Anxiety is stable. - Refilled sertraline prescription; sent to [facility]. 3. 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 - Continue sertraline as prescribed. 4. 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 - Next follow-up with Dr. Ramos scheduled for August. - Discussed advanced directives which daughters state is in place, further review of chart shows we do not have a copy. Secure message sent requesting they upload if they have electronic version or bring copy in to next visit 5. Recurrent UTIs - continue on prophylactic keflex -if she has another recurrent infection we can consider a change in the prophylactic, but currently difficult to see a trend with cultures that would show a need to change it -encouraged water intake Discussed treatment plan and patient voices understanding. Patient's questions answered appropriately. Medications and potential side effects were discussed and patient voices understanding. Medical Decision Making: Problems: Low: Stable chronic illness Risk: Moderate: Drug management Medical Decision Making Level: 3 - Low Return to the office as scheduled or as needed for worsening/no improvement. Bhavya Liu APRN.BALING PRESS OPERATOR Recording using [employer] software for draft documentation of the visit was discussed with the patient/authorized bank representative; all questions welcomed and answered. Patient/authorized bank representative agreed to proceed documented in this encounter [facility] 04-26-2025 Note HNO ID: [id number] Author: BHAVYA LIU APRN.BALING PRESS OPERATOR Service: ? Author Type: Nurse Practitioner Type: Progress Notes Filed: 04/26/2025 13:20 Note Text: This is a 84 year old female who presents today with: One month follow up from fatigue, UTI HISTORY OF PRESENT ILLNESS: Office visit with this provider 03/29, assessment and plan: ASSESSMENT/PLAN 1. Generalized weakness (R53.1) 2. Fatigue, unspecified type (R53.83) - Generalized weakness and fatigue noted, likely multifactorial due to current illness and decreased nutritional intake. - discussed decline related to being sick and advanced age -CBC, CMP, Urinalysis, Chest XR 3. Nonproductive cough (R05.8) - Persistent for 3 weeks, exacerbated by oral intake. - Lungs auscultated with mild wheezing on expiration. - Ordered chest X-ray to evaluate for potential underlying causes such as pneumonia - Prescribed Tessalon Perles, one capsule up to three times daily as needed for cough suppression. 4. Oropharyngeal dysphagia (R13.12) - Cough triggered by swallowing, more pronounced with fluids than solids. - Monitor for any signs of aspiration or worsening dysphagia. -Aspiration risk, daughters understand the same 5. Poor appetite (R63.0) - Significant decrease in oral intake, with early satiety reported. - Encourage small, frequent meals and adequate hydration. May supplement in boost or ensure 6. Hypertension, essential (I10) - Blood pressure elevated during visit, likely secondary to acute illness. - Recheck blood pressure once acute symptoms resolve, daughters do monitor at home 7. History of recurrent UTIs (Z87.440) - Ordered urinalysis to rule out current UTI as a contributing factor to fatigue and weakness. - Continue current prophylactic regimen; adjustments to be made based on urinalysis results. 8. Weight loss (R63.4) - Approximately 10 lbs weight loss since last visit per daughters, likely due to decreased oral intake and acute illness. - Monitor weight; expect stabilization and potential weight gain with resolution of illness and improved nutrition. Daughters say this was a rapid weight change. Todays visit Fatigue: - Increased fatigue today compared to the past few weeks - Had an active weekend from Saturday to Saturday. Chest Discomfort: - Occasional chest discomfort. - Occasional belching noted. Dysphagia: - Difficulty swallowing pills. Weight Loss: - Brie weight was 133.4 lbs on 03/29; previously 146 lbs in September. - Appetite has improved recently. UTI: - Recent UTI; Catherines urine rechecked and was clear. - On prophylactic medication three times a week to prevent UTIs, daughter concerned if this medication needs adjusted or changed PAST MEDICAL HISTORY: PAST MEDICAL HISTORY Diagnosis Date Anxiety Benign essential hypertension Bunion CHF (congestive heart failure) (HCC) Chronic kidney disease, stage III (moderate) (HCC) Decreased GFR Diverticulosis of colon (without mention of hemorrhage) Dysuria Fatigue Internal hemorrhoids without mention of complication Low back pain Memory loss Mild cognitive impairment Neuralgia and neuritis Nevus, non-neoplastic Osteopenia Overactive bladder PMH - PAST MEDICAL HISTORY OF temporomandibular joint disorders PMH - PAST MEDICAL HISTORY OF 2003 breast cancer - with chemotherapy and right mastectomy Pneumonia, organism unspecified(486) Middle of February Raynaud's syndrome Seborrheic keratosis Secondary cardiomyopathy, unspecified Vitamin D deficiency PAST SURGICAL HISTORY Procedure Laterality Date COLONOSCOPY FLX DX W/COLLJ SPEC WHEN PFRMD 10/14/07 HYSTERECTOMY N/A 1983 Partial PAST SURGICAL HISTORY OF 1991 breast bx PAST SURGICAL HISTORY OF 2003 breast cancer right/chemotherapy PAST SURGICAL HISTORY OF May 2010 Port removed ALLERGIES Patient has no known allergies. MEDICATIONS Current Outpatient Medications Medication Sig sertraline (ZOLOFT) 50 mg tablet Take 1 tablet by mouth daily at bedtime. lisinopril (ZESTRIL) 10 mg tablet Take 1 tablet by mouth once daily. cephALEXin (KEFLEX) 250 mg capsule Take 1 capsule by mouth 3 days per week: Saturday, Saturday, Saturday. amLODIPine (NORVASC) 5 mg tablet Take 1 tablet by mouth every afternoon. methocarbamol (ROBAXIN) 500 mg tablet Take 1/2 to 1 tablet twice daily as needed for back pain, spasms metoprolol succinate ER (TOPROL XL) 25 mg 24 hr tablet Take 1 tablet by mouth two times a day. cyanocobalamin 1,000 mcg/mL Inject 1 mL intramuscularly every 2 weeks. Walker (ULTRA-LIGHT ROLLATOR) misc 1 Device as directed. Dx: balance disorder, chronic back pain, gait disorder X-rays were taken of the Thoracic and Lumbar areas and showed degenerative/arthritic changes as well as scoliosis of lower thoracic and lumbar spine. dx chronic bilateral low back pain dexAMETHasone (DEXASOL) 0.1 % ophthalmic solution 1 Drop two times a week. Instill into (more content not included)... [facility] 04-13-2025 Telephone encounter Note Pt informed Holley Swenson MA [facility] 04-13-2025 Miscellaneous Notes Pt informed Holley Swenson MA Please inform patient's daughter that her recheck of urinalysis and urine culture is normal appearing Lawson Ramos DO documented in this encounter [facility] 04-13-2025 Telephone encounter Note Please inform patient's daughter that her recheck of urinalysis and urine culture is normal appearing Lawson Ramos DO [facility] 04-08-2025 Telephone encounter Note Spoke with daughter Mallorie gave information provided. She voices understanding. [facility] 04-08-2025 Miscellaneous Notes Spoke with daughter Mallorie gave information provided. She voices understanding. Yes, please call daughter Mallorie and let her know I ordered standing urine culture and standing urinalysis orders to have urine checked at any time. This may be her dementia worsening as well- it is difficult to tell since she had a recent UTI as well. We an also consider evaluation through Neurologist locally if needed if symptoms continue to worsen Lawson Ramos DO Patient's daughter calls and states that patient has been on Cipro for UTI. Last day of Cipro is today. Daughter reports that patient continues to be extremely weak and that patient sleeps all the time. Patient would stay in bed 24-7 if she was allowed to. Family has been having issues getting patient to eat. Family is giving her protein shakes and are vigilant in sitting with patient to get her to eat and feeding patient. Daughter asking if this is the dementia/Alzheimer's getting worse? Daughter asking if orders can be placed to recheck urine? Asking if provider would give standing orders to have urine checked? Please review and advise, Suzie Baxter RN documented in this encounter [facility] 04-07-2025 Telephone encounter Note Yes, please call daughter Mallorie and let her know I ordered standing urine culture and standing urinalysis orders to have urine checked at any time. This may be her dementia worsening as well- it is difficult to tell since she had a recent UTI as well. We an also consider evaluation through Neurologist locally if needed if symptoms continue to worsen Lawson Ramos DO [facility] 04-06-2025 Note HNO ID: [id number] Author: SANDI ANG MA Service: ? Author Type: Mortgage Advisor Type: Progress Notes Filed: 04/06/2025 10:45 Note Text: POPULATION HEALTH NAVIGATION OUTREACH Action/FYI Spoke to daughter to schedule 's annual wellness and daughter asked me to schedule for hte patient as well and this was done. Reason for Outreach Care Gap/HCC or Scheduling Wellness Visits Care Gaps due: Medicare Annual Wellness Visit Patient Contacted: Spoke to patient/parent/or legal guardian Patient identified by name and : Yes Care Gap/HCC/Scheduling Wellness actions taken: Patient scheduled/pended orders: Medicare Annual Wellness Visit 04/26/2025 in [facility] with BHAVYA LIU - 1 month follow up 09/10/2025 in [facility] with LAWSON RAMOS - Medicare WEllness Navigation Signature: Sandi Ang MA April 06, 2025 10:44 AM [facility] 04-06-2025 History of Presen t illness Narrative POPULATION HEALTH NAVIGATION OUTREACH Action/FYI Spoke to daughter to schedule 's annual wellness and daughter asked me to schedule for hte patient as well and this was done. Reason for Outreach Care Gap/HCC or Scheduling Wellness Visits Care Gaps due: Medicare Annual Wellness Visit Patient Contacted: Spoke to patient/parent/or legal guardian Patient identified by name and : Yes Care Gap/HCC/Scheduling Wellness actions taken: Patient scheduled/pended orders: Medicare Annual Wellness Visit 04/26/2025 in [facility] with BHAVYA LIU - 1 month follow up 09/10/2025 in [facility] with LAWSON RAMOS - Medicare WEllness Navigation Signature: Sandi Agn MA April 06, 2025 10:44 AM documented in this encounter [facility] 04-06-2025 Telephone encounter Note Patient's daughter calls and states that patient has been on Cipro for UTI. Last day of Cipro is today. Daughter reports that patient continues to be extremely weak and that patient sleeps all the time. Patient would stay in bed 24-7 if she was allowed to. Family has been having issues getting patient to eat. Family is giving her protein shakes and are vigilant in sitting with patient to get her to eat and feeding patient. Daughter asking if this is the dementia/Alzheimer's getting worse? Daughter asking if orders can be placed to recheck urine? Asking if provider would give standing orders to have urine checked? Please review and advise, Suzie Baxter RN [facility] 04-06-2025 Note Patient Outreach (NE TNAV) MONTSERRAT WEBB ([id number]) 1940 F Date Time Provider Department 04/06/25 SANDI ANG During your visit today, we recorded the following information about you: Sandi Ang MA 04/06/2025 10:45 AM Signed POPULATION HEALTH NAVIGATION OUTREACH Action/FYI Spoke to daughter to schedule 's annual wellness and daughter asked me to schedule for hte patient as well and this was done. Reason for Outreach Care Gap/HCC or Scheduling Wellness Visits Care Gaps due: Medicare Annual Wellness Visit Patient Contacted: Spoke to patient/parent/or legal guardian Patient identified by name and : Yes Care Gap/HCC/Scheduling Wellness actions taken: Patient scheduled/pended orders: Medicare Annual Wellness Visit 04/26/2025 in [facility] with BHAVYA LIU - 1 month follow up 09/10/2025 in [facility] with LAWSON RAMOS - Medicare WEllness Navigation Signature: Sandi Ang MA April 06, 2025 10:44 AM Allergies As of Date: 04/06/2025 (No Known Allergies) Date Reviewed: 03/29/2025 Reviewed by: Kitty Forbes LPN - Fully Assessed Reason for Visit: Population Health Navigation Outreach [3910] Prescriptions as of 04/06/2025 - ciprofloxacin HCl (CIPRO) 500 mg tablet Take 1 tablet by mouth two times a day for 7 days. - lisinopril (ZESTRIL) 10 mg tablet Take 1 tablet by mouth once daily. - cephALEXin (KEFLEX) 250 mg capsule Take 1 capsule by mouth 3 days per week: Saturday, Saturday, Saturday. - amLODIPine (NORVASC) 5 mg tablet Take 1 tablet by mouth every afternoon. - methocarbamol (ROBAXIN) 500 mg tablet Take 1/2 to 1 tablet twice daily as needed for back pain, spasms - metoprolol succinate ER (TOPROL XL) 25 mg 24 hr tablet Take 1 tablet by mouth two times a day. - cyanocobalamin 1,000 mcg/mL Inject 1 mL intramuscularly every 2 weeks. - sertraline (ZOLOFT) 50 mg tablet Take 1 tablet by mouth daily at bedtime. - Walker (ULTRA-LIGHT ROLLATOR) misc 1 Device as directed. Dx: balance disorder, chronic back pain, gait disorder X-rays were taken of the Thoracic and Lumbar areas and showed degenerative/arthritic changes as well as scoliosis of lower thoracic and lumbar spine. dx chronic bilateral low back pain - dexAMETHasone (DEXASOL) 0.1 % ophthalmic solution 1 Drop two times a week. Instill into ear canals, NOT EYES, for eczema of ear canals - metoprolol tartrate, short acting, (LOPRESSOR) 50 mg tablet Take 1 tablet by mouth two times a day. - lidocaine (SALONPAS) 4 % patch Apply 1 application as directed once daily. - metroNIDAZOLE 0.75 % cream Apply to affected area twice daily. For face for rosacea - atorvastatin (LIPITOR) 40 mg tablet Take by mouth. - albuterol HFA (VENTOLIN HFA) 90 mcg/actuation inhaler Inhale 2 Puffs as instructed every 4 hours as needed for Wheezing/Shortness of Breath. - ergocalciferol, vitamin D2, (DRISDOL) 50,000 unit capsule Take 1 capsule by mouth once each week. 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] 09/03/2005 03/29/2025 History of breast cancer [Z85.3] 11/01/2005 Fitting and adjustment of vascular catheter [Z4*02/08/2006 08/21/2021 Secondary and unspecified malignant neoplasm of*05/30/2006 08/21/2021 ROSACEA [L71.9] 12/14/2008 SEBORRHEIC KERATOSIS NOS [L82.1] 12/14/2008 Inflamed seborrheic keratosis [L82.0] 12/14/2008 10/21/2012 Viral warts, unspecified [B07.9] 12/14/2008 08/21/2021 SOLAR LENTIGENES///DYSCHROMIA OTHER [L81.9] 12/14/2008 10/21/2012 ACTINIC DAMAGE///CHR SOLAR SKIN DAMAGE NOS [L57*12/14/2008 01/26/2013 ER+ (estrogen receptor positive status) [Z17.0] 05/02/2010 08/21/2021 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 [D*06/20/2010 Actinic Keratosis (Premalignant AK) [L57.0] 06/21/2010 Tongue, Geographic [K14.1] 06/21/2010 Oral Submucosal Fibrosis/Tongue [K13.5] 06/21/2010 Lipoma: L forearm [D17.9] 06/21/2010 08/21/2021 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] 06/21/2010 08/21/2021 Open wound site: R ear: probable infection [T1*11/12/2010 08/21/2021 Surgical wound infection [T81.49XA] 11/12/2010 08/21/2021 Pyoderma, unspecified [L08.0] 11/12/2010 08/21/2021 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 [facility] 03-29-2025 History of Presen t illness Narrative Radiology Service Progress Note PATIENT NAME: Montserrat Webb DATE OF SERVICE: March 29, 2025 TIME: 12:20 PM PATIENT IDENTITY VERIFICATION COMPLETED USING TWO (2) IDENTIFIERS: Name and Date of confirmed by patient verbally. FALL SCREENING: Has the patient had 2 falls in the last year or 1 fall with injury or currently using an Ambulatory Assistive Device (Walker, Cane, Wheelchair, Crutches, etc.)? No PATIENT GENDER DATA: Assigned female at . status: : No status: NO. PATIENT RELEVANT IMPLANT DATA REVIEWED: Not Applicable PATIENT PRESENTS WITH AN IMPLANTABLE OR ATTACHED TECHNICAL STENOGRAPHER: No RADIOLOGY DEPARTMENT: General X-ray: Exam(s) Completed: Chest X-Ray PERIPHERAL IV DATA: Not applicable SIGNED BY: Irina Nino March 29, 2025 12:20 PM documented in this encounter [facility] 03-29-2025 Note HNO ID: [id number] Author: MELISSA MERCHANT Tech Service: ? Author Type: Technologist Type: Progress Notes Filed: 03/29/2025 12:36 Note Text: Radiology Service Progress Note PATIENT NAME: Montserrat Webb DATE OF SERVICE: March 29, 2025 TIME: 12:20 PM PATIENT IDENTITY VERIFICATION COMPLETED USING TWO (2) IDENTIFIERS: Name and Date of confirmed by patient verbally. FALL SCREENING: Has the patient had 2 falls in the last year or 1 fall with injury or currently using an Ambulatory Assistive Device (Walker, Cane, Wheelchair, Crutches, etc.)? No PATIENT GENDER DATA: Assigned female at . status: : No status: NO. PATIENT RELEVANT IMPLANT DATA REVIEWED: Not Applicable PATIENT PRESENTS WITH AN IMPLANTABLE OR ATTACHED TECHNICAL STENOGRAPHER: No RADIOLOGY DEPARTMENT: General X-ray: Exam(s) Completed: Chest X-Ray PERIPHERAL IV DATA: Not applicable SIGNED BY: Irina Nino March 29, 2025 12:20 PM [facility] 03-29-2025 Instructions Bhavya Liu APRN.CNP - 03/29/2025 12:00 PM EDT Complete the chest x-ray and lab work (CBC and CMP) as ordered today to help assess your cough and overall health. Provide a urine specimen for analysis (with help if needed) to check for a possible urinary tract infection; note that culture results will take about three days. Use Tessalon Perles for your cough--take one capsule up to three times a day as directed. Continue to drink plenty of fluids and try to eat, even if your appetite is low. Keep an eye on your weight and overall symptoms; if your weight loss or any symptoms worsen, please contact our office. documented in this encounter [facility] 03-29-2025 Note HNO ID: [id number] Author: BHAVYA LIU APRN.CNP Service: ? Author Type: Nurse Practitioner Type: Progress Notes Filed: 03/29/2025 13:58 Note Text: This is a 84 year old female who presents today with: Montserrat is an 84-year-old female, accompanied by her daughter who is providing history on Montserrat's behalf, presenting for evaluation of a persistent cough, fatigue, and weight loss. HISTORY OF PRESENT ILLNESS: Cough: - Persistent, nonproductive cough x3 weeks. - Initially accompanied by a sore throat - Triggered by eating and drinking; no significant change when lying down. - Tried NyQuil for 2 days and an Jeremy ritual involving onions and salt with some perceived benefit. - Denies chest pain and both patient and daughters deny shortness of breath -afebrile - was ill as well when this started 3 weeks ago, but his only lasted a couple of days Fatigue: - Severe fatigue, with increased somnolence. - Decreased oral intake; requires encouragement to eat. - sleep quality reported as good. Appetite and Weight Loss: - Approximately 10 lb weight loss since September, she was unable to be weighed today due to weakness to stand on scale - Early satiety noted; takes only a few bites and daughters say she is done -patient reports food and drinks don't taste the same. - report concerns of constipation and her memory not able to communicate last BM accurately Arthritis: - Complains of pain in the right thumb, suspected to be arthritic in nature. - History of extensive use of the right hand for gardening and live. UTI Prophylaxis: - Currently on prophylactic medication for UTI prevention, administered M/W/F. - Concerns about potential UTI due to current symptoms. HTN - elevated BP, daughter says it was fine yesterday. Nurse reports coughing when attempting to obtain BP PAST MEDICAL HISTORY: PAST MEDICAL HISTORY Diagnosis Date Anxiety Benign essential hypertension Bunion CHF (congestive heart failure) (HCC) Chronic kidney disease, stage III (moderate) (HCC) Decreased GFR Diverticulosis of colon (without mention of hemorrhage) Dysuria Fatigue Internal hemorrhoids without mention of complication Low back pain Memory loss Mild cognitive impairment Neuralgia and neuritis Nevus, non-neoplastic Osteopenia Overactive bladder PMH - PAST MEDICAL HISTORY OF temporomandibular joint disorders PMH - PAST MEDICAL HISTORY OF 2003 breast cancer - with chemotherapy and right mastectomy Pneumonia, organism unspecified(486) Middle of February Raynaud's syndrome Seborrheic keratosis Secondary cardiomyopathy, unspecified Vitamin D deficiency PAST SURGICAL HISTORY Procedure Laterality Date COLONOSCOPY FLX DX W/COLLJ SPEC WHEN PFRMD 10/14/07 HYSTERECTOMY N/A 1983 Partial PAST SURGICAL HISTORY OF 1991 breast bx PAST SURGICAL HISTORY OF 2003 breast cancer right/chemotherapy PAST SURGICAL HISTORY OF May 2010 Port removed ALLERGIES Patient has no known allergies. MEDICATIONS Current Outpatient Medications Medication Sig lisinopril (ZESTRIL) 10 mg tablet Take 1 tablet by mouth once daily. cephALEXin (KEFLEX) 250 mg capsule Take 1 capsule by mouth 3 days per week: Saturday, Saturday, Saturday. methocarbamol (ROBAXIN) 500 mg tablet Take 1/2 to 1 tablet twice daily as needed for back pain, spasms metoprolol succinate ER (TOPROL XL) 25 mg 24 hr tablet Take 1 tablet by mouth two times a day. sertraline (ZOLOFT) 50 mg tablet Take 1 tablet by mouth daily at bedtime. Walker (ULTRA-LIGHT ROLLATOR) misc 1 Device as directed. Dx: balance disorder, chronic back pain, gait disorder X-rays were taken of the Thoracic and Lumbar areas and showed degenerative/arthritic changes as well as scoliosis of lower thoracic and lumbar spine. dx chronic bilateral low back pain dexAMETHasone (DEXASOL) 0.1 % ophthalmic solution 1 Drop two times a week. Instill into ear canals, NOT EYES, for eczema of ear canals lidocaine (SALONPAS) 4 % patch Apply 1 application as directed once daily. metroNIDAZOLE 0.75 % cream Apply to affected area twice daily. For face for rosacea atorvastatin (LIPITOR) 40 mg tablet Take by mouth. albuterol HFA (VENTOLIN HFA) 90 mcg/actuation inhaler Inhale 2 Puffs as instructed every 4 hours as needed for Wheezing/Shortness of Breath. ergocalciferol, vitamin D2, (DRISDOL) 50,000 unit capsule Take 1 capsule by mouth once each week. amLODIPine (NORVASC) 5 mg tablet Take 1 tablet by mouth every afternoon. cyanocobalamin 1,000 mcg/mL Inject 1 mL intramuscularly every 2 weeks. metoprolol tartrate, short acting, (LOPRESSOR) 50 mg tablet Take 1 tablet by mouth two times a day. (Patient taking differently: Take 25 mg by mouth two times a day.) Current Facility-Administered Medications Medication Dose Route Frequency benzonatate 100 mg cap(s) (TESSALON PERLE) 100 mg ORAL TID PRN FAMILY HISTORY Problem Relation Age of Onset (more content not included)... [facility] 03-29-2025 History of Presen t illness Narrative This is a 84 year old female who presents today with: Montserrat is an 84-year-old female, accompanied by her daughter who is providing history on Montserrat's behalf, presenting for evaluation of a persistent cough, fatigue, and weight loss. HISTORY OF PRESENT ILLNESS: Cough: - Persistent, nonproductive cough x3 weeks. - Initially accompanied by a sore throat - Triggered by eating and drinking; no significant change when lying down. - Tried NyQuil for 2 days and an Jeremy ritual involving onions and salt with some perceived benefit. - Denies chest pain and both patient and daughters deny shortness of breath -afebrile - was ill as well when this started 3 weeks ago, but his only lasted a couple of days Fatigue: - Severe fatigue, with increased somnolence. - Decreased oral intake; requires encouragement to eat. - sleep quality reported as good. Appetite and Weight Loss: - Approximately 10 lb weight loss since September, she was unable to be weighed today due to weakness to stand on scale - Early satiety noted; takes only a few bites and daughters say she is done -patient reports food and drinks don't taste the same. - report concerns of constipation and her memory not able to communicate last BM accurately Arthritis: - Complains of pain in the right thumb, suspected to be arthritic in nature. - History of extensive use of the right hand for gardening and live. UTI Prophylaxis: - Currently on prophylactic medication for UTI prevention, administered M/W/. - Concerns about potential UTI due to current symptoms. HTN - elevated BP, daughter says it was fine yesterday. Nurse reports coughing when attempting to obtain BP PAST MEDICAL HISTORY: PAST MEDICAL HISTORY Diagnosis Date Anxiety Benign essential hypertension Bunion CHF (congestive heart failure) (HCC) Chronic kidney disease, stage III (moderate) (HCC) Decreased GFR Diverticulosis of colon (without mention of hemorrhage) Dysuria Fatigue Internal hemorrhoids without mention of complication Low back pain Memory loss Mild cognitive impairment Neuralgia and neuritis Nevus, non-neoplastic Osteopenia Overactive bladder PMH - PAST MEDICAL HISTORY OF temporomandibular joint disorders PMH - PAST MEDICAL HISTORY OF 2003 breast cancer - with chemotherapy and right mastectomy Pneumonia, organism unspecified(486) Middle of February Raynaud's syndrome Seborrheic keratosis Secondary cardiomyopathy, unspecified Vitamin D deficiency PAST SURGICAL HISTORY Procedure Laterality Date COLONOSCOPY FLX DX W/COLLJ SPEC WHEN PFRMD 10/14/07 HYSTERECTOMY N/A 1983 Partial PAST SURGICAL HISTORY OF 1991 breast bx PAST SURGICAL HISTORY OF 2003 breast cancer right/chemotherapy PAST SURGICAL HISTORY OF May 2010 Port removed ALLERGIES Patient has no known allergies. MEDICATIONS Current Outpatient Medications Medication Sig lisinopril (ZESTRIL) 10 mg tablet Take 1 tablet by mouth once daily. cephALEXin (KEFLEX) 250 mg capsule Take 1 capsule by mouth 3 days per week: Saturday, Saturday, Saturday. methocarbamol (ROBAXIN) 500 mg tablet Take 1/2 to 1 tablet twice daily as needed for back pain, spasms metoprolol succinate ER (TOPROL XL) 25 mg 24 hr tablet Take 1 tablet by mouth two times a day. sertraline (ZOLOFT) 50 mg tablet Take 1 tablet by mouth daily at bedtime. Walker (ULTRA-LIGHT ROLLATOR) misc 1 Device as directed. Dx: balance disorder, chronic back pain, gait disorder X-rays were taken of the Thoracic and Lumbar areas and showed degenerative/arthritic changes as well as scoliosis of lower thoracic and lumbar spine. dx chronic bilateral low back pain dexAMETHasone (DEXASOL) 0.1 % ophthalmic solution 1 Drop two times a week. Instill into ear canals, NOT EYES, for eczema of ear canals lidocaine (SALONPAS) 4 % patch Apply 1 application as directed once daily. metroNIDAZOLE 0.75 % cream Apply to affected area twice daily. For face for rosacea atorvastatin (LIPITOR) 40 mg tablet Take by mouth. albuterol HFA (VENTOLIN HFA) 90 mcg/actuation inhaler Inhale 2 Puffs as instructed every 4 hours as needed for Wheezing/Shortness of Breath. ergocalciferol, vitamin D2, (DRISDOL) 50,000 unit capsule Take 1 capsule by mouth once each week. amLODIPine (NORVASC) 5 mg tablet Take 1 tablet by mouth every afternoon. cyanocobalamin 1,000 mcg/mL Inject 1 mL intramuscularly every 2 weeks. metoprolol tartrate, short acting, (LOPRESSOR) 50 mg tablet Take 1 tablet by mouth two times a day. (Patient taking differently: Take 25 mg by mouth two times a day.) Current Facility-Administered Medications Medication Dose Route Frequency benzonatate 100 mg cap(s) (TESSALON PERLE) 100 mg ORAL TID PRN FAMILY HISTORY Problem Relation Age of Onset Cancer Mother lynphoma Diabetes Father Cancer Father brain Diabetes Brother Skin Cancer Brother Melanoma No Known Problems Daughter No Known Problems Daughter No Known Problems Son Social History Tobacco Use Smoking status: Never Smokeless tobacco: Never Vaping Use Vaping status: Never Used Substance Use Topics Alcohol use: No Drug use: No REVIEW OF SYSTEMS Constitutional: (+) fatigue, (-) fever, (+) weight loss Ears/Nose/Mouth/Throat: (-) sore throat, (-) post nasal drip, (+) dysphagia Cardiovascular: (-) chest pain Respiratory: (+) cough, (-) phlegm, (-) shortness of breath Gastrointestinal: (+) decreased appetite, - abdominal discomfort today but per daughters has had some, (+) constipation Musculoskeletal: (+) right thumb pain Neurological: (+) leg weakness See HPI EXAM: BP 173/98 Pulse 65 Resp 14 SpO2 98% PHYSICAL EXAM: General Appearance: frail, elderly in appearance.; withdrawn and fatigued Skin: poor turgor arms, warm/dry. Lungs: Unlabored on room air Positive findings: wheezing expiratory left middle and lower; Cough, nonproductive and weak Heart: Heart sounds distant, Negative findings: no murmurs, clicks, or gallops. Abdomen: Normal abdominal exam, Abdomen soft, non-tender. Bowel sounds normal. No masses, organomegaly. Extremities: Edema: trace-1+BLE Peripheral Pulses: Normal. ASSESSMENT/PLAN 1. Generalized weakness (R53.1) 2. Fatigue, unspecified type (R53.83) - Generalized weakness and fatigue noted, likely multifactorial due to current illness and decreased nutritional intake. - discussed decline related to being sick and advanced age -CBC, CMP, Urinalysis, Chest XR 3. Nonproductive cough (R05.8) - Persistent for 3 weeks, exacerbated by oral intake. - Lungs auscultated with mild wheezing on expiration. - Ordered chest X-ray to evaluate for potential underlying causes such as pneumonia - Prescribed Tessalon Perles, one capsule up to three times daily as needed for cough suppression. 4. Oropharyngeal dysphagia (R13.12) - Cough triggered by swallowing, more pronounced with fluids than solids. - Monitor for any signs of aspiration or worsening dysphagia. -Aspiration risk, daughters understand the same 5. Poor appetite (R63.0) - Significant decrease in oral intake, with early satiety reported. - Encourage small, frequent meals and adequate hydration. May supplement in boost or ensure 6. Hypertension, essential (I10) - Blood pressure elevated during visit, likely secondary to acute illness. - Recheck blood pressure once acute symptoms resolve, daughters do monitor at home 7. History of recurrent UTIs (Z87.440) - Ordered urinalysis to rule out current UTI as a contributing factor to fatigue and weakness. - Continue current prophylactic regimen; adjustments to be made based on urinalysis results. 8. Weight loss (R63.4) - Approximately 10 lbs weight loss since last visit per daughters, likely due to decreased oral intake and acute illness. - Monitor weight; expect stabilization and potential weight gain with resolution of illness and improved nutrition. Daughters say this was a rapid weight change. Discussed treatment plan and patient voices understanding. Patient's questions answered appropriately. Medications and potential side effects were discussed and patient voices understanding. Return to the office as scheduled or as needed for worsening/no improvement. Bhavya Liu APRN.BALING PRESS OPERATOR Recording using [employer] software for draft documentation of the visit was discussed with the patient/authorized bank representative; all questions welcomed and answered. Patient/authorized bank representative agreed to proceed documented in this encounter [facility] 03-16-2025 Note HNO ID: [id number] Author: SANDI ANG MA Service: ? Author Type: Mortgage Advisor Type: Progress Notes Filed: 03/16/2025 10:22 Note Text: POPULATION HEALTH NAVIGATION OUTREACH Action/FYI Contacted patient to schedule HCC care gaps and health maintenance. 1st attempt: Left message with my direct number 2nd attempt: My Chart message sent Topic Due (Y or N) Comments Annual Wellness Exam Yes PCP Follow up No Colorectal Cancer Screening No A1C No HTN/Controlling BP No HCC Yes Updated appointment notes No Reason for Outreach Care Gap/HCC or Scheduling Wellness Visits Care Gaps due: Medicare Annual Wellness Visit Patient Contacted: Unable or unnecessary to reach patient: Left message APX message sent HCC related Navigation Signature: Sandi Ang MA March 16, 2025 10:22 AM [facility] 03-16-2025 History of Presen t illness Narrative POPULATION HEALTH NAVIGATION OUTREACH Action/FYI Contacted patient to schedule HCC care gaps and health maintenance. 1st attempt: Left message with my direct number 2nd attempt: My Chart message sent Topic Due (Y or N) Comments Annual Wellness Exam Yes PCP Follow up No Colorectal Cancer Screening No A1C No HTN/Controlling BP No HCC Yes Updated appointment notes No Reason for Outreach Care Gap/HCC or Scheduling Wellness Visits Care Gaps due: Medicare Annual Wellness Visit Patient Contacted: Unable or unnecessary to reach patient: Left message [facility] message sent HCC related Navigation Signature: Sandi Ang MA March 16, 2025 10:22 AM documented in this encounter [facility] 03-16-2025 Note Patient Outreach (NURY RODRIGUEZAV) MONTSERRAT WEBB ([id number]) 1940 F Date Time Provider Department 03/16/25 SANDI ANG NETNAV During your visit today, we recorded the following information about you: Sandi Ang MA 03/16/2025 10:22 AM Signed POPULATION HEALTH NAVIGATION OUTREACH Action/FYI Contacted patient to schedule HCC care gaps and health maintenance. 1st attempt: Left message with my direct number 2nd attempt: My Chart message sent Topic Due (Y or N) Comments Annual Wellness Exam Yes PCP Follow up No Colorectal Cancer Screening No A1C No HTN/Controlling BP No HCC Yes Updated appointment notes No Reason for Outreach Care Gap/HCC or Scheduling Wellness Visits Care Gaps due: Medicare Annual Wellness Visit Patient Contacted: Unable or unnecessary to reach patient: Left message [employer] message sent HCC related Navigation Signature: Sandi Ang MA March 16, 2025 10:22 AM Allergies As of Date: 03/16/2025 (No Known Allergies) Date Reviewed: 09/16/2024 Reviewed by: Lily Ho LPN - Fully Assessed Reason for Visit: Population Health Navigation Outreach [3910] Cmt: Lela/[employer]bear[employer]/ACO Prescriptions as of 03/16/2025 - lisinopril (ZESTRIL) 10 mg tablet Take 1 tablet by mouth once daily. - cephALEXin (KEFLEX) 250 mg capsule Take 1 capsule by mouth 3 days per week: Saturday, Saturday, Saturday. - amLODIPine (NORVASC) 5 mg tablet Take 1 tablet by mouth every afternoon. - methocarbamol (ROBAXIN) 500 mg tablet Take 1/2 to 1 tablet twice daily as needed for back pain, spasms - metoprolol succinate ER (TOPROL XL) 25 mg 24 hr tablet Take 1 tablet by mouth two times a day. - cyanocobalamin 1,000 mcg/mL Inject 1 mL intramuscularly every 2 weeks. - sertraline (ZOLOFT) 50 mg tablet Take 1 tablet by mouth daily at bedtime. - Walker (ULTRA-LIGHT ROLLATOR) misc 1 Device as directed. Dx: balance disorder, chronic back pain, gait disorder X-rays were taken of the Thoracic and Lumbar areas and showed degenerative/arthritic changes as well as scoliosis of lower thoracic and lumbar spine. dx chronic bilateral low back pain - dexAMETHasone (DEXASOL) 0.1 % ophthalmic solution 1 Drop two times a week. Instill into ear canals, NOT EYES, for eczema of ear canals - metoprolol tartrate, short acting, (LOPRESSOR) 50 mg tablet Take 1 tablet by mouth two times a day. - lidocaine (SALONPAS) 4 % patch Apply 1 application as directed once daily. - metroNIDAZOLE 0.75 % cream Apply to affected area twice daily. For face for rosacea - atorvastatin (LIPITOR) 40 mg tablet Take by mouth. - albuterol HFA (VENTOLIN HFA) 90 mcg/actuation inhaler Inhale 2 Puffs as instructed every 4 hours as needed for Wheezing/Shortness of Breath. - ergocalciferol, vitamin D2, (DRISDOL) 50,000 unit capsule Take 1 capsule by mouth once each week. 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] 12/14/2008 SEBORRHEIC KERATOSIS NOS [L82.1] 12/14/2008 Inflamed seborrheic keratosis [L82.0] 12/14/2008 10/21/2012 Viral warts, unspecified [B07.9] 12/14/2008 08/21/2021 SOLAR LENTIGENES///DYSCHROMIA OTHER [L81.9] 12/14/2008 10/21/2012 ACTINIC DAMAGE///CHR SOLAR SKIN DAMAGE NOS [L57*12/14/2008 01/26/2013 ER+ (estrogen receptor positive status) [Z17.0] 05/02/2010 08/21/2021 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 [D*06/20/2010 Actinic Keratosis (Premalignant AK) [L57.0] 06/21/2010 Tongue, Geographic [K14.1] 06/21/2010 Oral Submucosal Fibrosis/Tongue [K13.5] 06/21/2010 Lipoma: L forearm [D17.9] 06/21/2010 08/21/2021 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] 06/21/2010 08/21/2021 Open wound site: R ear: probable infection [T1*11/12/2010 08/21/2021 Surgical wound infection [T81.49XA] 11/12/2010 08/21/2021 Pyoderma, unspecified [L08.0] 11/12/2010 08/21/2021 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 *11/12/2010 Scar condition and fibrosis of skin [L90.5] 12/02/2010 Solar Lentigo//Solar Lentigines [L81.4] 10/17/2011 Actinic skin damage [L57.8] 10/17/2011 Vitamin D deficiency [E55.9] 05/30/2012 Irritated//Inflamed Seborrheic Keratosis [L82.0]10/21/2012 08/21/2021 Postinflammatory skin changes [R23.8] 01/26/2013 Tongue lesion [K14.8] 01/26/2013 Osteoporosis [M81.0] 06/16/2013 History of breast cancer in female [Z85.3] 06/16/2013 Hypertension, essential [I10] 10/13/2019 Forgetfulness [R68.89] 10/13/2019 Dementia without behavioral disturbance (HCC) [*12/08/2019 08/21/2021 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 [facility] 11-05-2024 Telephone encounter Note Patient daughter, to call back with medication name Spoke with patient daughter, please disregard this message as the amlodipine was already sent on another encounter. [facility] 11-05-2024 Miscellaneous Notes Patient daughter, to call back with medication name Spoke with patient daughter, please disregard this message as the amlodipine was already sent on another encounter. Prescription Refill Information The patient has been identified by name and date of : Yes Caregiver verified no other encounters exist for this prescription request: Yes Caregiver confirmed with patient/requestor that no other refills are due, in the near future, with this provider at this time: Yes The last office visit in the department: 09/16/2024 Does the patient have a future office visit with this provider/department: Yes Requested Prescriptions No prescriptions requested or ordered in this encounter Lacy Carney November 05, 2024 8:59 AM documented in this encounter [facility] 11-05-2024 Telephone encounter Note Prescription Refill Information The patient has been identified by name and date of : Yes Caregiver verified no other encounters exist for this prescription request: Yes Caregiver confirmed with patient/requestor that no other refills are due, in the near future, with this provider at this time: Yes The last office visit in the department: 09/16/2024 Does the patient have a future office visit with this provider/department: Yes Requested Prescriptions No prescriptions requested or ordered in this encounter Lacy Carney November 05, 2024 8:59 AM [facility] 09-21-2024 Telephone encounter Note Call to Mallorie Sanders. Notified her of results and recommendations below from Provider. Mallorie verbalized understanding. States they are trying to make her drink fluids the best they can. They will keep after her on this. Raissa Lane MA [facility] 09-21-2024 Miscellaneous Notes Call to Daughter, Mallorie. Notified her of results and recommendations below from Provider. Mallorie verbalized understanding. States they are trying to make her drink fluids the best they can. They will keep after her on this. Raissa Lane MA Left message to return call Holley Swenson MA Please call one of her daughters and let them know that overall her labs are all stable except her serum creatinine is creeping up again and BUN was elevated. This means that she isn' t drinking enough water daily. Needs 60-80 oz Lawson Ramos DO documented in this encounter [facility] 09-17-2024 Telephone encounter Note Left message to return call Holley Swenson MA [facility] 09-16-2024 Telephone encounter Note Please call one of her daughters and let them know that overall her labs are all stable except her serum creatinine is creeping up again and BUN was elevated. This means that she isn' t drinking enough water daily. Needs 60-80 oz Lawson L Richard DO [facility] 09-16-2024 Telephone encounter Note Images from the original note were not included. PA approved till 11/10/2099 left vm for patient Lucia CarrascoCARLITOS lord [facility] 09-16-2024 Miscellaneous Notes Images from the original note were not included. PA approved till 11/10/2099 left vm for patient Lucia CARLITOS Zhang Prior Authorization has been completed online at [employer] for methocarbamol, will await response. [id number] Please keep encounter open until final decision has been received and documented from insurance [employer]. Lucia Zhang MA documented in this encounter [facility] 09-16-2024 Telephone encounter Note Prior Authorization has been completed online at [employer] for methocarbamol, will await response. [id number] Please keep encounter open until final decision has been received and documented from insurance [employer]. Luciajessica Zhang MA [facility] 09-16-2024 Note HNO ID: [id number] Author: LAWSON RAMOS, DO Service: ? Author Type: Physician Type: Progress Notes Filed: 09/16/2024 12:18 Note Text: CC: Montserrat Webb is a 84 year old female who presents to the office for follow up HPI: Seen in office in [place] by Gloria Remy CNP, as below: Accompanied by daughter Mallorie and assisting in HPI today. Has chronic low back pain. Since the season of fall (3-4 months) has increased significantly in pain. Goes across her entire lower back but does not radiate. Uses heating pad. Doesn't typically use pain medication. Doesn't necessarily like to take medications. Standing is worse. Difficult to walk any distance. Difficult going up steps. Is using cane, feels more stable. Hasn't had any falls for 3-4 years. At last follow up in February She is present with daughters Sendy and Mallorie in the office today who are helping her with mobility as well as answering questions She has been having increased mid and low back chronic pain. Since the season of fall (3-4 months) has increased significantly in pain. Goes across her entire lower and mid back but does not radiate. Uses heating pad. Doesn't typically use pain medication. Doesn't necessarily like to take medications but has gotten to the point that she needs to do something. They installed a stair lift chair in the home recently. Had xrays of lumbar obtained which showed that she has significant DJD and DDD and scoliosis changes. Standing is worse. Difficult to walk any distance. Difficult going up steps. Is using cane, feels more stable. Hasn't had any falls for 3-4 years. Currently She is present with daughters Sendy and Mallorie in the office today who are helping her with mobility as well as answering questions Gait, balance, admits that she is using a cane with benefit. Not exercising or eating enough protein as she should per daughter. She has been having increased mid and low back chronic pain. Since the season of fall (3-4 months) has increased significantly in pain. Goes across her entire lower and mid back but does not radiate. Uses heating pad. Doesn't typically use pain medication. Doesn't necessarily like to take medications but has gotten to the point that she needs to do something. They installed a stair lift chair in the home recently. Had xrays of lumbar obtained which showed that she has significant DJD and DDD and scoliosis changes. Standing is worse. Difficult to walk any distance. Difficult going up steps. Is using cane, feels more stable. HTN, well controlled, taking medications as prescribed. Recurrent UTI, no obvious recent symptoms PAST MEDICAL HISTORY Diagnosis Date Anxiety Benign essential hypertension Bunion CHF (congestive heart failure) (HCC) Chronic kidney disease, stage III (moderate) (HCC) Decreased GFR Diverticulosis of colon (without mention of hemorrhage) Dysuria Fatigue Internal hemorrhoids without mention of complication Low back pain Memory loss Mild cognitive impairment Neuralgia and neuritis Nevus, non-neoplastic Osteopenia Overactive bladder PMH - PAST MEDICAL HISTORY OF temporomandibular joint disorders PMH - PAST MEDICAL HISTORY OF 2003 breast cancer - with chemotherapy and right mastectomy Pneumonia, organism unspecified(486) Middle of February Raynaud's syndrome Seborrheic keratosis Secondary cardiomyopathy, unspecified Vitamin D deficiency PAST SURGICAL HISTORY Procedure Laterality Date COLONOSCOPY FLX DX W/COLLJ SPEC WHEN PFRMD 10/14/07 HYSTERECTOMY N/A 1983 Partial PAST SURGICAL HISTORY OF 1991 breast bx PAST SURGICAL HISTORY OF 2003 breast cancer right/chemotherapy PAST SURGICAL HISTORY OF May 2010 Port removed Current Outpatient Medications Medication Sig amLODIPine (NORVASC) 5 mg tablet Take 1 tablet by mouth every afternoon. methocarbamol (ROBAXIN) 500 mg tablet Take 1/2 to 1 tablet twice daily as needed for back pain, spasms metoprolol succinate ER (TOPROL XL) 25 mg 24 hr tablet Take 1 tablet by mouth two times a day. cephALEXin (KEFLEX) 250 mg capsule Take 1 capsule by mouth 3 days per week: Saturday, Saturday, Saturday. lisinopril (ZESTRIL) 10 mg tablet Take 1 tablet by mouth once daily. sertraline (ZOLOFT) 50 mg tablet Take 1 tablet by mouth daily at bedtime. cyanocobalamin 1,000 mcg/mL Inject 1 mL intramuscularly one time a week for 30 days, THEN 1 mL every 2 weeks for 60 days, THEN 1 mL once every month. Walker (ULTRA-LIGHT ROLLATOR) misc 1 Device as directed. Dx: balance disorder, chronic back pain, gait disorder X-rays were taken of the Thoracic and Lumbar areas and showed degenerative/arthritic changes as well as scoliosis of lower thoracic and lumbar spine. dx chronic bilateral low back pain dexAMETHasone (DEXASOL) 0.1 % ophthalmic solution 1 Drop two times a week. Instill into ear canals, NOT EYES, for eczema of ear canals metoprolol tartrate, short acting, (LOPRE (more content not included)... [facility] 09-16-2024 History of Presen t illness Narrative CC: Montserrat Webb is a 84 year old female who presents to the office for follow up HPI: Seen in office in Nov by Gloria Remy CNP, as below: Accompanied by daughter Mallorie and assisting in HPI today. Has chronic low back pain. Since the season of fall (3-4 months) has increased significantly in pain. Goes across her entire lower back but does not radiate. Uses heating pad. Doesn't typically use pain medication. Doesn't necessarily like to take medications. Standing is worse. Difficult to walk any distance. Difficult going up steps. Is using cane, feels more stable. Hasn't had any falls for 3-4 years. At last follow up in February She is present with daughters Sendy and Mallorie in the office today who are helping her with mobility as well as answering questions She has been having increased mid and low back chronic pain. Since the season of fall (3-4 months) has increased significantly in pain. Goes across her entire lower and mid back but does not radiate. Uses heating pad. Doesn't typically use pain medication. Doesn't necessarily like to take medications but has gotten to the point that she needs to do something. They installed a stair lift chair in the home recently. Had xrays of lumbar obtained which showed that she has significant DJD and DDD and scoliosis changes. Standing is worse. Difficult to walk any distance. Difficult going up steps. Is using cane, feels more stable. Hasn't had any falls for 3-4 years. Currently She is present with daughters Sendy and Mallorie in the office today who are helping her with mobility as well as answering questions Gait, balance, admits that she is using a cane with benefit. Not exercising or eating enough protein as she should per daughter. She has been having increased mid and low back chronic pain. Since the season of fall (3-4 months) has increased significantly in pain. Goes across her entire lower and mid back but does not radiate. Uses heating pad. Doesn't typically use pain medication. Doesn't necessarily like to take medications but has gotten to the point that she needs to do something. They installed a stair lift chair in the home recently. Had xrays of lumbar obtained which showed that she has significant DJD and DDD and scoliosis changes. Standing is worse. Difficult to walk any distance. Difficult going up steps. Is using cane, feels more stable. HTN, well controlled, taking medications as prescribed. Recurrent UTI, no obvious recent symptoms PAST MEDICAL HISTORY Diagnosis Date Anxiety Benign essential hypertension Bunion CHF (congestive heart failure) ([facility]) Chronic kidney disease, stage III (moderate) (HCC) Decreased GFR Diverticulosis of colon (without mention of hemorrhage) Dysuria Fatigue Internal hemorrhoids without mention of complication Low back pain Memory loss Mild cognitive impairment Neuralgia and neuritis Nevus, non-neoplastic Osteopenia Overactive bladder PMH - PAST MEDICAL HISTORY OF temporomandibular joint disorders PMH - PAST MEDICAL HISTORY OF 2003 breast cancer - with chemotherapy and right mastectomy Pneumonia, organism unspecified(486) Middle of February Raynaud's syndrome Seborrheic keratosis Secondary cardiomyopathy, unspecified Vitamin D deficiency PAST SURGICAL HISTORY Procedure Laterality Date COLONOSCOPY FLX DX W/COLLJ SPEC WHEN PFRMD 10/14/07 HYSTERECTOMY N/A 1983 Partial PAST SURGICAL HISTORY OF 1991 breast bx PAST SURGICAL HISTORY OF 2003 breast cancer right/chemotherapy PAST SURGICAL HISTORY OF May 2010 Port removed Current Outpatient Medications Medication Sig amLODIPine (NORVASC) 5 mg tablet Take 1 tablet by mouth every afternoon. methocarbamol (ROBAXIN) 500 mg tablet Take 1/2 to 1 tablet twice daily as needed for back pain, spasms metoprolol succinate ER (TOPROL XL) 25 mg 24 hr tablet Take 1 tablet by mouth two times a day. cephALEXin (KEFLEX) 250 mg capsule Take 1 capsule by mouth 3 days per week: Saturday, Saturday, Saturday. lisinopril (ZESTRIL) 10 mg tablet Take 1 tablet by mouth once daily. sertraline (ZOLOFT) 50 mg tablet Take 1 tablet by mouth daily at bedtime. cyanocobalamin 1,000 mcg/mL Inject 1 mL intramuscularly one time a week for 30 days, THEN 1 mL every 2 weeks for 60 days, THEN 1 mL once every month. Walker (ULTRA-LIGHT ROLLATOR) misc 1 Device as directed. Dx: balance disorder, chronic back pain, gait disorder X-rays were taken of the Thoracic and Lumbar areas and showed degenerative/arthritic changes as well as scoliosis of lower thoracic and lumbar spine. dx chronic bilateral low back pain dexAMETHasone (DEXASOL) 0.1 % ophthalmic solution 1 Drop two times a week. Instill into ear canals, NOT EYES, for eczema of ear canals metoprolol tartrate, short acting, (LOPRESSOR) 50 mg tablet Take 1 tablet by mouth two times a day. (Patient taking differently: Take 25 mg by mouth two times a day.) lidocaine (SALONPAS) 4 % patch Apply 1 application as directed once daily. metroNIDAZOLE 0.75 % cream Apply to affected area twice daily. For face for rosacea atorvastatin (LIPITOR) 40 mg tablet Take by mouth. albuterol HFA (VENTOLIN HFA) 90 mcg/actuation inhaler Inhale 2 Puffs as instructed every 4 hours as needed for Wheezing/Shortness of Breath. ergocalciferol, vitamin D2, (DRISDOL) 50,000 unit capsule Take 1 capsule by mouth once each week. No current facility-administered medications for this visit. ALLERGIES No Known Allergies Social History Tobacco Use Smoking status: Never Smokeless tobacco: Never Vaping Use Vaping status: Never Used Substance Use Topics Alcohol use: No Drug use: No ROS See HPI. PE: BP 110/60 Pulse 64 Temp (Src) 97.1 (Temporal) Resp 20 Wt 146 lb (66.2kg) Gen: A&OX3, NAD, non-toxic appearing HEENT: PERRLA, EOMs intact b/l, nares without drainage, pharynx without erythema, exudate, lesions, or drainage. Uvula midline. Neck: No LAD, no thyromegaly, no meningismus. CV: RRR, no murmur Lungs: CTA b/l, no wheezing Skin: No rashes, lesions, or wounds on exposed skin. Back: reduced ROM thoracic and lumbar spine, + paraspinal muscle tension and spasm with scoliosis changes No edema, normal pulses ASSESSMENT/PLAN: 1. Stage 3a chronic kidney disease (HCC) - ICD9: 585.3, ICD10: N18.31 (primary diagnosis) - eGFR: Stable - Counseled on avoiding NSAIDs, adequate hydration - Counseled on low sodium diet - COMPREHENSIVE METABOLIC PANEL - COMPLETE BLOOD COUNT AND DIFFERENTIAL 2. Need for influenza vaccination - ICD9: V04.81, ICD10: Z23 - INFLUENZA VACCINE, PRSV FREE, AGE 65+ YR, HIGH DOSE, TRIVALENT (FLUZONE HIGH-DOSE) 3. Vitamin B12 deficiency - ICD9: 266.2, ICD10: E53.8 Continue IM injections, change to every 2 weeks IM - VITAMIN B12 4. Recurrent UTI (urinary tract infection) - ICD9: 599.0, ICD10: N39.0 recurrent - Patient education for prevention given - URINALYSIS, WITH MICROSCOPIC 5. Chronic kidney disease, stage 3a (HCC) - ICD9: 585.3, ICD10: N18.31 - eGFR: Stable - Counseled on avoiding NSAIDs, adequate hydration - Counseled on low sodium diet - COMPREHENSIVE METABOLIC PANEL - COMPLETE BLOOD COUNT AND DIFFERENTIAL - MAGNESIUM - URINALYSIS, WITH MICROSCOPIC 6. Borderline abnormal TFTs - ICD9: 794.5, ICD10: R94.6 - Instructed patient on importance of taking on an empty stomach either first thing in the morning or at bedtime. - THYROID STIMULATING HORMONE 7. Vitamin D deficiency - ICD9: 268.9, ICD10: E55.9 Continue supplement Recheck labs - VITAMIN D 25 HYDROXY 8. Hyperglycemia - ICD9: 790.29, ICD10: R73.9 - HEMOGLOBIN A1C 9. Dyslipidemia - ICD9: 272.4, ICD10: E78.5 - Control undetermined, due for labs - Counseled on healthy diet and regular exercise - LIPID PANEL, NONFASTING 10. Late onset Alzheimer's disease without behavioral disturbance (HCC) - ICD9: 331.0, 294.10, ICD10: G30.1, F02.80 Stable, slowly worsening. 11. Osteoarthritis of spine with radiculopathy, lumbar region - ICD9: 721.3, ICD10: M47.26 stable 12. Osteoarthritis of spine with radiculopathy, thoracic region - ICD9: 721.2, ICD10: M47.24 stable 13. Chronic midline low back pain without sciatica - ICD9: 724.2, 338.29, ICD10: M54.50, G89.29 Stable, f/u for injections as scheduled upcoming Lawson Ramos DO Return if no improvement. Follow up with Lawson Ramos DO. To ER if develops chest pain, shortness of breath. Discussed risks, benefits, alternatives, and potential side effects of medications. Patient/Guardian expressed understanding and agreed with the plan. See patient instructions. Lawson Ramos DO [address] [place] [address] documented in this encounter [facility] 08-27-2024 Telephone encounter Note Patient has been identified by name and date of : Yes, Patient phones for refill(s): Requested Prescriptions Pending Prescriptions Disp Refills cephALEXin (KEFLEX) 250 mg capsule 40 capsule 1 Sig: Take 1 capsule by mouth 3 days per week: Saturday, Saturday, Saturday. Date of last office visit in primary care: 03/10/2024 Date of next office visit in primary care: 09/16/2024 Please advise. Thank you. Uma Rausch. [facility] 08-27-2024 Miscellaneous Notes Patient has been identified by name and date of : Yes, Patient phones for refill(s): Requested Prescriptions Pending Prescriptions Disp Refills cephALEXin (KEFLEX) 250 mg capsule 40 capsule 1 Sig: Take 1 capsule by mouth 3 days per week: Saturday, Saturday, Saturday. Date of last office visit in primary care: 03/10/2024 Date of next office visit in primary care: 09/16/2024 Please advise. Thank you. Uma Rausch. documented in this encounter [facility] 08-14-2024 Telephone encounter Note Prescription Refill Information The patient has been identified by name and date of : Yes Caregiver verified no other encounters exist for this prescription request: Yes Caregiver confirmed with patient/requestor that no other refills are due, in the near future, with this provider at this time: Yes The last office visit in the department: 03/10/24 Does the patient have a future office visit with this provider/department: Yes Requested Prescriptions Pending Prescriptions Disp Refills lisinopril (ZESTRIL) 10 mg tablet 90 tablet 1 Sig: Take 1 tablet by mouth once daily. sertraline (ZOLOFT) 50 mg tablet 90 tablet 1 Sig: Take 1 tablet by mouth daily at bedtime. Lily Navas August 14, 2024 9:49 AM [facility] 08-14-2024 Miscellaneous Notes Prescription Refill Information The patient has been identified by name and date of : Yes Caregiver verified no other encounters exist for this prescription request: Yes Caregiver confirmed with patient/requestor that no other refills are due, in the near future, with this provider at this time: Yes The last office visit in the department: 03/10/24 Does the patient have a future office visit with this provider/department: Yes Requested Prescriptions Pending Prescriptions Disp Refills lisinopril (ZESTRIL) 10 mg tablet 90 tablet 1 Sig: Take 1 tablet by mouth once daily. sertraline (ZOLOFT) 50 mg tablet 90 tablet 1 Sig: Take 1 tablet by mouth daily at bedtime. Lily Navas August 14, 2024 9:49 AM documented in this encounter [facility] 07-28-2024 Telephone encounter Note Prescription Refill Information The patient has been identified by name and date of : Yes Caregiver verified no other encounters exist for this prescription request: Yes Caregiver confirmed with patient/requestor that no other refills are due, in the near future, with this provider at this time: Yes The last office visit in the department: 03/10/24 Does the patient have a future office visit with this provider/department: Yes Requested Prescriptions Pending Prescriptions Disp Refills methocarbamol (ROBAXIN) 500 mg tablet 30 tablet 1 Sig: Take 1/2 to 1 tablet twice daily as needed for back pain, spasms Scarlett Hopkins Cox Monett July 28, 2024 9:59 AM [facility] Work Phone: 07-28-2024 Miscellaneous Notes Prescription Refill Information The patient has been identified by name and date of : Yes Caregiver verified no other encounters exist for this prescription request: Yes Caregiver confirmed with patient/requestor that no other refills are due, in the near future, with this provider at this time: Yes The last office visit in the department: 03/10/24 Does the patient have a future office visit with this provider/department: Yes Requested Prescriptions Pending Prescriptions Disp Refills methocarbamol (ROBAXIN) 500 mg tablet 30 tablet 1 Sig: Take 1/2 to 1 tablet twice daily as needed for back pain, spasms Scarlett Navas July 28, 2024 9:59 AM documented in this encounter [facility] 06-29-2024 Telephone encounter Note Prescription Refill Information The patient has been identified by name and date of : Yes Caregiver verified no other encounters exist for this prescription request: Yes Caregiver confirmed with patient/requestor that no other refills are due, in the near future, with this provider at this time: Yes The last office visit in the department: 03-10-24 Does the patient have a future office visit with this provider/department: Yes Requested Prescriptions Pending Prescriptions Disp Refills amLODIPine (NORVASC) 5 mg tablet 90 tablet 0 Sig: Take 1 tablet by mouth every afternoon. Fernanda Navas June 29, 2024 10:29 AM [facility] Work Phone: 06-29-2024 Miscellaneous Notes Prescription Refill Information The patient has been identified by name and date of : Yes Caregiver verified no other encounters exist for this prescription request: Yes Caregiver confirmed with patient/requestor that no other refills are due, in the near future, with this provider at this time: Yes The last office visit in the department: 03-10-24 Does the patient have a future office visit with this provider/department: Yes Requested Prescriptions Pending Prescriptions Disp Refills amLODIPine (NORVASC) 5 mg tablet 90 tablet 0 Sig: Take 1 tablet by mouth every afternoon. Fernanda Navas June 29, 2024 10:29 AM documented in this encounter [facility] 05-19-2024 Telephone encounter Note Prescription Refill Information The patient has been identified by name and date of : Yes Caregiver verified no other encounters exist for this prescription request: Yes Caregiver confirmed with patient/requestor that no other refills are due, in the near future, with this provider at this time: Yes The last office visit in the department: 03/10/24 Does the patient have a future office visit with this provider/department: Yes Requested Prescriptions Pending Prescriptions Disp Refills methocarbamol (ROBAXIN) 500 mg tablet 30 tablet 1 Sig: Take 1/2 to 1 tablet twice daily as needed for back pain, spasms Scarlett Hopkins Cox [place]ett May 19, 2024 10:44 AM [facility] Work Phone: 05-19-2024 Miscellaneous Notes Prescription Refill Information The patient has been identified by name and date of : Yes Caregiver verified no other encounters exist for this prescription request: Yes Caregiver confirmed with patient/requestor that no other refills are due, in the near future, with this provider at this time: Yes The last office visit in the department: 03/10/24 Does the patient have a future office visit with this provider/department: Yes Requested Prescriptions Pending Prescriptions Disp Refills methocarbamol (ROBAXIN) 500 mg tablet 30 tablet 1 Sig: Take 1/2 to 1 tablet twice daily as needed for back pain, spasms Scarlett D Sandeep Cox [place] May 19, 2024 10:44 AM documented in this encounter [facility] 03-25-2024 Telephone encounter Note Patient has been identified by name and date of : Yes, Provider Dr. Ramos Date 03/24/24 Time 12:00 pm Daughter, Mallorie phones for refill(s): Requested Prescriptions Pending Prescriptions Disp Refills metoprolol succinate ER (TOPROL XL) 25 mg 24 hr tablet 180 tablet 1 Sig: Take 1 tablet by mouth two times a day. Date of last office visit in primary care: 03/10/2024 Date of next office visit in primary care: 09/16/2024 Thank you. Chandni Walker LPN. [facility] 03-25-2024 Miscellaneous Notes Patient has been identified by name and date of : Yes, Provider Dr. Ramos Date 03/24/24 Time 12:00 pm DaughterMallorie phones for refill(s): Requested Prescriptions Pending Prescriptions Disp Refills metoprolol succinate ER (TOPROL XL) 25 mg 24 hr tablet 180 tablet 1 Sig: Take 1 tablet by mouth two times a day. Date of last office visit in primary care: 03/10/2024 Date of next office visit in primary care: 09/16/2024 Thank you. Chandni Walker LPN. documented in this encounter [facility] 03-25-2024 Telephone encounter Note Faxed recent ov notes to [facility], per [place]aine request. . Confirmation received from [facility] that they received them. [facility] 03-25-2024 Miscellaneous Notes Faxed recent ov notes to [facility], per [place] request. . Confirmation received from [facility] that they received them. documented in this encounter [facility] 03-16-2024 Telephone encounter Note Patient has been identified by name and date of : Yes, Provider Dr. Montez Date 03/16/24 Time 1:54 Patient phones for refill(s): Requested Prescriptions Pending Prescriptions Disp Refills methocarbamol (ROBAXIN) 500 mg tablet 30 tablet 1 Sig: Take 1/2 to 1 tablet twice daily as needed for back pain, spasms lisinopril (ZESTRIL) 10 mg tablet Sig: Take 1 tablet by mouth once daily. amLODIPine (NORVASC) 5 mg tablet Sig: Take 1 tablet by mouth every afternoon. Date of last office visit in primary care: 03/10/2024 Date of next office visit in primary care: 09/16/2024 Please advise. Thank you. Kitty Forbes LPN. [facility] 03-16-2024 Miscellaneous Notes Patient has been identified by name and date of : Yes, Provider Dr. Montez Date 03/16/24 Time 1:54 Patient phones for refill(s): Requested Prescriptions Pending Prescriptions Disp Refills methocarbamol (ROBAXIN) 500 mg tablet 30 tablet 1 Sig: Take 1/2 to 1 tablet twice daily as needed for back pain, spasms lisinopril (ZESTRIL) 10 mg tablet Sig: Take 1 tablet by mouth once daily. amLODIPine (NORVASC) 5 mg tablet Sig: Take 1 tablet by mouth every afternoon. Date of last office visit in primary care: 03/10/2024 Date of next office visit in primary care: 09/16/2024 Please advise. Thank you. Kitty Forbes LPN. Pharmacy verified in [facility] Patient has been identified by name and date of : Yes Patient aware RX will be sent to pharmacy. No need to notify patient. Patient phones for refill(s): Requested Prescriptions Pending Prescriptions Disp Refills methocarbamol (ROBAXIN) 500 mg tablet 30 tablet 1 Sig: Take 1/2 to 1 tablet twice daily as needed for back pain, spasms lisinopril (ZESTRIL) 10 mg tablet Sig: Take 1 tablet by mouth once daily. amLODIPine (NORVASC) 5 mg tablet Sig: Take 1 tablet by mouth every afternoon. Date of last office visit : 03/10/2024 Date of next office visit : Visit date not found Last 2 Encounter Wt Readings: Date: Wt: 03/10/2024 63.8 kg (140 lb 9.6 oz) 02/24/2024 64 kg (141 lb) Not applicable Please advise. Fernanda Hinds Pss documented in this encounter [facility] 03-16-2024 Telephone encounter Note Pharmacy verified in Epic Patient has been identified by name and date of : Yes Patient aware RX will be sent to pharmacy. No need to notify patient. Patient phones for refill(s): Requested Prescriptions Pending Prescriptions Disp Refills methocarbamol (ROBAXIN) 500 mg tablet 30 tablet 1 Sig: Take 1/2 to 1 tablet twice daily as needed for back pain, spasms lisinopril (ZESTRIL) 10 mg tablet Sig: Take 1 tablet by mouth once daily. amLODIPine (NORVASC) 5 mg tablet Sig: Take 1 tablet by mouth every afternoon. Date of last office visit : 03/10/2024 Date of next office visit : Visit date not found Last 2 Encounter Wt Readings: Date: Wt: 03/10/2024 63.8 kg (140 lb 9.6 oz) 02/24/2024 64 kg (141 lb) Not applicable Please advise. Fernanda Hinds Pss [facility] Work Phone: 03-11-2024 Telephone encounter Note PA for B12 injections denied. Medicare only covers injection in office due to being submitted under Medicare A/B. Spouse advised did injections previously with no issue. Patient aware can try and picking machine operator from pharmacy under medicare A/B but if not covered will need to get in office with nurse. [facility] to see how patient got injection last time and they used savings card. Mallorie was notified and will use coupon to continue in home injections Lucia Zhang MA [facility] 03-11-2024 Miscellaneous Notes PA for B12 injections denied. Medicare only covers injection in office due to being submitted under Medicare A/B. Spouse advised did injections previously with no issue. Patient aware can try and picking machine operator from pharmacy under medicare A/B but if not covered will need to get in office with nurse. [facility] to see how patient got injection last time and they used savings card. Mallorie was notified and will use coupon to continue in home injections Lucia Zhang MA prior Authorization has been completed online at [employer] for b12 injection, will await response. [id number] Please keep encounter open until final decision has been received and documented from insurance [employer]. Lucia Zhang MA documented in this encounter [facility] 03-10-2024 Telephone encounter Note prior Authorization has been completed online at [employer] for b12 injection, will await response. [id number] Please keep encounter open until final decision has been received and documented from insurance [employer]. Lucia Zhang MA [facility] 03-10-2024 History of Presen t illness Narrative Transitional Care Management Progress Note The patients TCM visit was performed within the 14 days of discharge. Patient's Date of discharge: 02/27/2024 Date of initial coordinator contact after discharge: NA Discharge diagnosis: syncopal episode Medication review completed Yes Jayashree Remy APRN.BALING PRESS OPERATOR Provider Documentation: In follow-up of hospitalization, Montserrat Webb is a 83 year old female with the chief complaint of syncopal episode. I have reviewed the patient s last hospital course including diagnostic testing performed during this hospitalization, their discharge medications, and my assessment and plan with the patient and any family members present at today s visit. HPI: Underwent ER visit and admission x1 day to [facility] for syncopal episode. This happened when daughter was assisting her to get out of the bathtub as well as present and patient feeling stressed and heater blowing/was warm when she was in the bathroom. While at [facility] underwent VERA and chemical stress test which were essentially negative. Today patient feels good, denies concerns. Daughters state that she is back to her baseline. Overall they do not have concerns. PAST MEDICAL HISTORY: Reviewed and updated ALLERGIES: Reviewed and updated MEDICATIONS: Reviewed and updated SOCIAL HISTORY: Reviewed and updated FAMILY HISTORY: Reviewed and updated REVIEW OF SYSTEMS: All other systems reviewed and negative, other than HPI. PHYSICAL EXAMINATION BP 128/82 Pulse 78 Resp 16 Wt 140 lb 9.6 oz (63.8kg) SpO2 94% General appearance: well appearing, alert, in no acute distress, and well-hydrated, well nourished, motor and sensory appear to be normal Lungs: clear to auscultation no wheezing or rhonchi Heart: RRR without murmur, gallop, or rubs. No ectopy Abdomen: Deferred Extremities: Extremities normal. No deformities, edema, or skin discoloration. Good capillary refill. Psychiatric: pleasant, cooperative, intermittently pleasantly confused at baseline 1. I have reviewed the patient record including associated test results during the last hospitalization Yes 2. I have reviewed Lab test Yes 3. I have reviewed Radiology test Yes 4. I reviewed assessment/plan with the patient/family member Yes ASSESSMENT/PLAN: 1. Vasovagal syncope - ICD9: 780.2, ICD10: R55 (primary diagnosis) Resolved. 2. Generalized weakness - ICD9: 780.79, ICD10: R53.1 At baseline 3. Chronic kidney disease, stage 3a (HCC) - ICD9: 585.3, ICD10: N18.31 At baseline 4. Late onset Alzheimer's disease without behavioral disturbance (HCC) - ICD9: 331.0, 294.10, ICD10: G30.1, F02.80 At baseline Jayashree Remy APRN.ALMAS March 10, 2024 12:03 PM documented in this encounter [facility] 03-10-2024 Telephone encounter Note Checking to see if this has been done. Chandni Walker LPN [facility] 03-10-2024 Miscellaneous Notes Checking to see if this has been done. Chandni Walker LPN Rx faxed. Lily Ho LPN rx printed, please fax and notify Mallorie Ramos DO DaughterMallorie called to let you know she took the prescription for the Rollator to [facility] and was told the prescription is not detailed enough. It needs to have the folllowing: X-rays were taken of the Thoracic and Lumbar areas and showed degenerative/arthritic changes as well as scoliosis of lower thoracic and lumbar spine. dx chronic bilateral low back pain Please fax new order to [facility] and notify Daughter Mallorie. Chandni Walker LPN documented in this encounter [facility] 03-06-2024 Telephone encounter Note Rx faxed. Lily Ho LPN [facility] 03-06-2024 Telephone encounter Note rx printed, please fax and notify Mallorie Ramos DO [facility] 03-05-2024 Telephone encounter Note Noted Lawson Ramos DO [facility] 03-05-2024 Miscellaneous Notes Noted Lawson Ramos DO Fernanda PT from [facility] calls to report plan of care for patient and physical therapy will visit patient 1 times a week for 1 week and 2 times a week for 4 weeks. Physical therapy will work with patient on strength, gait, transfer training, fall prevention, and pain management. No call back needed. Suzie Baxter RN documented in this encounter [facility] 03-05-2024 Telephone encounter Note Fernanda PT from [facility] calls to report plan of care for patient and physical therapy will visit patient 1 times a week for 1 week and 2 times a week for 4 weeks. Physical therapy will work with patient on strength, gait, transfer training, fall prevention, and pain management. No call back needed. Suzie Baxter RN [facility] 02-28-2024 Miscellaneous Notes Spoke with Faith gave information provided. Voices understanding. Yes Dr. Ramos will follow. Jayashree Remy APRN.CNP Faith from [facility] Home Health calling received orders from [facility] for PT/OT. Patient discharged yesterday was there for hypertension, weakness. Asking if PCP would follow patient and sign orders? Please advise documented in this encounter [facility] 02-28-2024 Miscellaneous Notes Pt's daughter Mallorie Solis calling. Requesting patient's pain management referral information be faxed to Dr. Jacome's office. Faxed as requested. Jaky Blake RN documented in this encounter [facility] 02-28-2024 Telephone encounter Note DaughterMallorie called to let you know she took the prescription for the Rollator to [facility] and was told the prescription is not detailed enough. It needs to have the folllowing: X-rays were taken of the Thoracic and Lumbar areas and showed degenerative/arthritic changes as well as scoliosis of lower thoracic and lumbar spine. dx chronic bilateral low back pain Please fax new order to [facility] and notify Daughter Mallorie. Chandni Walker LPN [facility] 02-28-2024 History of Presen t illness Narrative TRANSITION CARE MANAGEMENT (TCM) INITIAL CONTACT Mortgage Advisor Outreach Provider Action/FYI: Daughter called to schedule hospital FU Initial contact with patient post discharge, spoke to daughter. Patient identified by name and . TRANSITION CARE MANAGEMENT INITIAL OUTREACH DOCUMENTATION: 02/28/2024 Date of Outreach: Outreach Attempt 1: Contact Made Date of Discharge 02/27/2024 SUMMARY: -Pt discharged from [facility] on 02/27/24. -Admitted for: passing out at home Do you have a hospital follow up appointment with your PCP? Appointment on Yes with Jayashree Remy NP. Yes. Remind patient of appointment date, time, and location. If not within 14 calendar days of discharge - please reschedule accordingly. MEDICATIONS: Many patients have questions or concerns about their medications once they are home. Were you prescribed any new medications? No, but 2 meds pt is haylie have had their doses decreased Lisinopril and Metoprolol Were you told to hold any medications? No Were any of your medications discontinued? No Do you have any questions about getting or taking your medications? No Your discharge instructions/After visit Summary (AVS) are important in guiding you through the recovery process. Is there anything I might help you understand? No Do you have all the necessary equipment and supplies at home? Yes Medical records from recent hospitalization: check with [facility] documented in this encounter [facility] 02-27-2024 Discharge summary Note Date/Time February 27, 2024 1:56pm [facility] Medical Records Department [address] [place] [address] Discharge Summary 02/27/24 1356 MR#: [id number] Acct: [id number] Name: MONTSERRAT WEBB Rep #:[id number] : 1940 83 From: Dex adame DO PCP: Dr. Lawson Ramos DO Status:KARTIK VENEGAS [facility] Providers Date of Admission: 02/26/24 Date of Discharge: 02/27/24 Primary Care Physician: Dr. Lawson Ramos DO Consultations 02/27/24 11:22 Consult: Cardiology Routine Consulting Provider: Aniya Malik Reason for Consult: new RWMA on echo, stress vs cath EMERGENT Consult: No MD Notified: Yes Date Notified: 02/27/24 Time Notified: 11:38 Method of Notification: Text Reason For Visit: SYNCOPE Diagnosis Discharge Diagnosis (1) Bradycardia, sinus: Status: Acute Code(s): R00.1 - Bradycardia, unspecified (2) Syncope: Status: Acute Code(s): R55 - Syncope and collapse Medications at Discharge Home Medications aspirin 81 mg chewable tablet 81 mg PO DAILY preventative 05/25/22 cholecalciferol (vitamin D3) 125 mcg (5,000 unit) tablet (Vitamin D3) 125 mcg PODAILY suppliment 05/25/22 sertraline 50 mg tablet 100 mg PO QHS depression 12/17/22 cephalexin 250 mg capsule 250 mg PO .1 daily MoWedFri 02/26/24 cyanocobalamin (vitamin B-12) 1,000 mcg/mL injection solution 1,000 mcg IM QMONTH 02/26/24 krill oil 500 mg capsule 1,000 mg PO DAILY SUPPLEMENT 02/26/24 lidocaine 5 % topical patch See Rx Instructions topical .COMPLEX 02/26/24 methocarbamol 500 mg tablet 250 - 500 mg PO BID PRN PRN muscle spasm 02/26/24 turmeric 1 cap PO DAILY SUPPLEMENT 02/26/24 amlodipine 5 mg tablet 5 mg PO DAILY 30 days #30 tabs 02/27/24 lisinopril 10 mg tablet 10 mg PO DAILY 30 days #30 tabs 02/27/24 metoprolol tartrate 25 mg tablet 25 mg PO BID 30 days #60 tabs 02/27/24 Hospital Course Operations None Procedures EKG, Transthoracic echo and - (Chest x-ray, CTA head/neck) Summary of Care Provided Minutes Spent on Discharge: 35 Hospital Course: Patient is an 83-year-old female who presented to [facility] ED on 02/26/2024 after an episode of syncope at home. Short hospital course as noted below. Patient discharged home with no therapy needs in stable condition on 02/26. 1. Syncopal episode; abnormal TTE Presented after a witnessed syncopal episode at home. Unclear etiology but doesseem most consistent with a vasovagal syncopal episode, possibly precipitated bymild dehydration and poor heart rate response while on beta-robbin medication. EKG showed sinus bradycardia, no ST changes. Chest x-ray nonacute. Troponin normal. Mild creatinine elevation and mildly hemoconcentrated labs, labs otherwise benign. CTA head/neck with no concerning findings. UA benign. Last echo in 2021 showed EF 55%, stage I diastolic dysfunction, no other abnormalities. ? TTE on 02/26 showed EF 50%, moderate concentric LV hypertrophy, stage I diastolic dysfunction, posterior basal hypokinesis. Discussed over the phone with Dr. Malik with cardiology, who noted that the area in question was very small and he had only mild concern with this. He recommended nuclear stress test for further evaluation. Plan was for inpatient stress test, however family desired for patient to be discharged and have outpatient stress test done given patient's history of dementia causing her to have significant difficulty from a mental status standpoint while in the hospital. Discussed with nuclear medicinedepartment, who looked at the schedule and hope is that stress test can be done early to mid next week. Outpatient nuclear stress test order placed and scheduling will call patient to confirm time of stress test. Otherwise, telemetry showed normal sinus rhythm during hospitalization. Did make some medication changes as notable low. PT/OT/case management followed, okay for discharge home with no needs. 2. Mild creatinine elevation, resolved ? Creatinine 1.20 on admit, baseline creatinine appears to be around 0.9-1.1. Suspect due to mild dehydration. Gave 1 L of IV fluids on day of admission, repeat creatinine 0.80 on day of discharge. Patient had good urine output. Home lisinopril held during admission and on discharge as noted below. 3. Sinus bradycardia, improved ? Noted on admission. EKG showed sinus bradycardia with heart rate in the low 50s, no ST changes. Is on Lopressor 50 mg twice daily at home for hypertension,reported adherence. Was on telemetry during hospitalization, which showed normal sinus rhythm while she was off of the beta-robbin medication. No concern for heart block. Decreased beta-robbin dose on discharge as noted below. 4. Hypertension ? Home regimen of Lopressor 50 mg twice daily, lisinopril 30 mg daily. Has beenon this regimen for many years. Lopressor and lisinopril were held on admissionand patient was quite hypertensive to the 180s to 190s. Notably had CTA head/neck done with no concern for stroke. Adjusted regimen on discharge to Lopressor 25 mg twice daily, lisinopril 10 mg daily and amlodipine 5 mg daily. Recommended outpatient follow-up with PCP in 1 to 2 weeks for further medicationtitration as needed. 5. Mood disorder ? Stable. Continue home sertraline. 6. History of breast cancer ? Remote history in 2003 s/p mastectomy and chemotherapy with no recurrence. 7. History of dementia ? Not on any home medications. Was alert and oriented during hospitalization but family noted significant agitation while hospitalized concerning for a mild degree of hospital related delirium. Noted for future hospitalizations. Total clinical time spent by myself addressing the patient's medical issues, reviewing all the data, and collaborating with patient's care team: 35 minutes. Physical Exam Const alert, oriented x3, no apparent distress and average body habitus Constitutional Narrative: Pleasant elderly female, sitting up comfortably in bed, conversing normally, in no acute distress. General Appearance: cooperative and comfortable HEENT normocephalic, head/scalp atraumatic, hearing grossly normal bilaterally and nasal mucous membranes and turbinates normal Eyes PERRL, EOMs intact bilaterally and conjunctivae normal Neck full ROM Chest inspection of chest normal Resp normal respiratory effort, normal air movement, no use of accessory muscles and clear to auscultation bilaterally Cardio regular rate, regular rhythm, no murmurs and peripheral pulses 2+ throughout GI normal to inspection, nondistended, normoactive bowel sounds, soft to palpation,non-tender and non-distended Back/Spine normal ROM Extremity normal to inspection, full ROM and no pedal edema Skin no rashes or lesions noted Neuro moves all extremities and no focal motor deficits Speech: speech normal Psych mental status grossly normal Weight / BMI Weight Weight: 62.3 kg Body Mass Index (BMI) 23.6 ABG / Lab / Microbiology Data 02/27/24 06:25 02/27/24 06:25 Laboratory: Laboratory Results - last 24 hr 02/27/24 06:25: WBC 8.7, RBC 4.65, Hgb 13.5, Hct 40.8, MCV 87.7, MCH 29.0, MCHC 33.1, RDW Std Deviation 42.5, RDW Coeff of Juan 13.2, Plt Count 227, MPV 10.7, Sodium 136, Potassium 3.1 L, Chloride 105, Carbon Dioxide 25.0, Anion Gap 6, BUN14, Creatinine 0.82, Estim Creat Clear Calc 44.10, Est GFR (MDRD) Af Amer 85, Est GFR (MDRD) Non-Af 71, BUN/Creatinine Ratio 17.1, Glucose 164 H, Calcium 8.6,Phosphorus 2.3 L, Magnesium 1.7 Radiography Diagnostic Testing: Radiology Impression Echocardiogram 02/26/24 14:05 Interpretation Summary Moderate concentric left ventricular hypertrophy. The left ventricular ejection fraction is 50 %. Posterior basal hypokinesis. Stage 1 diastolic dysfunction. Mild tricuspid valve insufficiency. Right ventricular systolic pressure estimated to be 38 mmHg. Ordering Physician: Dex Landaverde Referring Physician: LAWSON RAMOS Performed By: Candie Simental RCS Head/Neck CTA 02/26/24 14:28 IMPRESSION: 1. Unremarkable bilateral CCAs. 2. Atherosclerotic calcifications of the origin of the ICAs with less than 50% stenosis on the right side. 3. No intracranial great vessel stenosis. 4. Patent bilateral vertebral arteries without evidence of stenosis. Electronically Signed: Nick Russ MD at 15:24 EDT , D/C Instructions Discharge Diet: No restrictions Weight Bearing Status: Full weight bearing Meaningful Use Info Meaningful Use Meaningful Use Diagnoses (Choose all that apply): None applicable Ischemic Stroke Statin Dosing Therapy Reference: STATIN DOSE THERAPY REFERENCE: * Patients > 75 years receive moderate or high dose statin therapy. * Patients 75 years or YOUNGER should receive HIGH intensity statin dose unless contraindicated. You will be required to document reason for non-treatment if statin daily dose does not meet guidelines. HIGH DOSE STATIN THERAPY DAILY Atorvastatin > than or = to 40 mg Rosuvastatin > than or = to 20 mg Amlodipine + Atorvastatin > than or = to 2.5/40 mg Ezetimibe + Simvastatin 10/80 mg Simvastatin 80mg Discharge Plan Admission Admit Date/Time: 02/26/24 12:58 Primary Reason for Your Visit: Episode of passing out Attending Provider: Dex Landaverde Primary Care Provider: Lawson Ramos Consulting Providers: Aniya Malik Discharge Orders/Prescriptions Prescriptions: New amlodipine 5 mg Tablet 5 mg PO DAILY 30 Days Qty: 30 0RF lisinopril 10 mg Tablet 10 mg PO DAILY 30 Days Qty: 30 0RF metoprolol tartrate 25 mg Tablet 25 mg PO BID 30 Days Qty: 60 0RF Continued aspirin 81 mg Tablet,Chewable 81 mg PO DAILY cholecalciferol (vitamin D3) [Vitamin D3] 125 mcg (5,000 unit) Tablet 125 mcg PO DAILY sertraline 50 mg tablet 100 mg PO QHS cephalexin 250 mg capsule 250 mg PO .1 daily MoWedFri Patient Comments: MoWeFri, 1 daily cyanocobalamin (vitamin B-12) 1,000 mcg/mL solution 1,000 mcg IM QMONTH Patient Comments: FAMILY AND PT UNAWARE OF LAST INJECTION. WILL CALL IN TO GIVE LAST DOSE AT A LATER TIME methocarbamol 500 mg tablet 250 - 500 mg PO BID PRN PRN (Reason: muscle spasm) turmeric 1 cap PO DAILY Patient Comments: PT AND FAMILY UNAWARE OF STRENGTH krill oil 500 mg capsule 1,000 mg PO DAILY lidocaine 5 % adhesive patch,medicated See Rx Instructions .ROUTE .COMPLEX Rx Instructions: leave on most painful area for up to 12 hrs Discontinued metoprolol tartrate 50 mg tablet 50 mg PO BID lisinopril 30 mg tablet 30 mg PO DAILY Other Ambulatory Orders: Nuclear Stress Test - Chemical (Routine) Facility: [facility] - Location: [facility] Ordered By: Dr. Dex Landaverde Referrals / Follow Up: Lawson Ramos DO [Primary Care Provider] - Lawson Ramos [[facility]] - Disposition Disposition (needs filled in before D/C Order can be placed): Home Health Service Charges/Coding Visit Charges Inpatient E&M: 07195 Disch Hosp >30min 02/27/24 1517 <Electronically signed by Dex Landaverde DO> Cosigner Signature (if applicable): CC: Dr. Dex Landaverde DO; Dr. Lawson Ramos DO~ Signed [facility] Work Phone: 1(712) 419-149304-18-2024 Discharge summary Author Dex Landaverde [facility] February 27, 2024 1:55pm Note Date/Time February 27, 2024 1:5 1pm [facility] Medical Records Department [address] [place] [address] Instructions for Home/Discharge Instructions 02/27/24 1351 MR#: [id number] Acct: [id number] Name: MONTSERRAT WEBB Rep #:[id number] : 1940 83 From: Dex adame DO PCP: Dr. Lawson Ramos DO Status:AD M THEO Discharge Instructions Diet Discharge Diet: No restrictions Activity Discharge Activity: No Restrictions Weight Bearing Status: Full weight bearing Follow Up Care Test Results: Test results from this visit will be discussed in further detail at your follow- up appointment, if applicable. Discharge Plan Admission Admit Date/Time: 02/26/24 12:58 Primary Reason for Your Visit: Episode of passing out Attending Provider: Dex Landaverde Primary Care Provider: Lawson Ramos Consulting Providers: Aniya Malik Discharge Orders/Prescriptions Prescriptions: New amlodipine 5 mg Tablet 5 mg PO DAILY 30 Days Qty: 30 0RF lisinopril 10 mg Tablet 10 mg PO DAILY 30 Days Qty: 30 0RF metoprolol tartrate 25 mg Tablet 25 mg PO BID 30 Days Qty: 60 0RF Continued aspirin 81 mg Tablet,Chewable 81 mg PO DAILY cholecalciferol (vitamin D3) [Vitamin D3] 125 mcg (5,000 unit) Tablet 125 mcg PO DAILY sertraline 50 mg tablet 100 mg PO QHS cephalexin 250 mg capsule 250 mg PO .1 daily MoWedFri Patient Comments: MoWeFri, 1 daily cyanocobalamin (vitamin B-12) 1,000 mcg/mL solution 1,000 mcg IM QMONTH Patient Comments: FAMILY AND PT UNAWARE OF LAST INJECTION. WILL CALL IN TO GIVE LAST DOSE AT A LATER TIME methocarbamol 500 mg tablet 250 - 500 mg PO BID PRN PRN (Reason: muscle spasm) turmeric 1 cap PO DAILY Patient Comments: PT AND FAMILY UNAWARE OF STRENGTH krill oil 500 mg capsule 1,000 mg PO DAILY lidocaine 5 % adhesive patch,medicated See Rx Instructions .ROUTE .COMPLEX Rx Instructions: leave on most painful area for up to 12 hrs Discontinued metoprolol tartrate 50 mg tablet 50 mg PO BID lisinopril 30 mg tablet 30 mg PO DAILY Other Ambulatory Orders: Nuclear Stress Test - Chemical (Routine) Facility: [facility] - Location: [facility] Ordered By: Dr. Dex Landaverde Referrals / Follow Up: Lawson Ramos DO [Primary Care Provider] - Lawson Ramos [facility] [[facility]] - Disposition Disposition (needs filled in before D/C Order can be placed): Home, Self Care 02/27/24 5097<Electronically signed by Dex Landaverde DO>Dex Landaverde DO CC: Dr. Aniya Malik MD; Dr. Lawson Ramos DO ~ Signed [facility] Work Phone: 1(227) 331-663204-18-2024 [facility] Medical Records Department [address] [place] [address] Discharge Summary 02/27/24 1356 MR#: [id number] Acct: [id number] Name: MONTSERRAT WEBB Rep #: [id number] : 1940 83 From: Dex Landaverde DO PCP: Dr. Lawson Ramos DO Status:ADM THEO Location: [place] [address] Providers Date of Admission: 02/26/24 Date of Discharge: 02/27/24 Primary Care Physician: Dr. Lawson Ramos DO Consultations 02/27/24 11:22 Consult: Cardiology Routine Consulting Provider: Aniya Malik Reason for Consult: new RWMA on echo, stress vs cath EMERGENT Consult: No MD Notified: Yes Date Notified: 02/27/24 Time Notified: 11:38 Method of Notification: Text Reason For Visit: SYNCOPE Diagnosis Discharge Diagnosis (1) Bradycardia, sinus: Status: Acute Code(s): R00.1 - Bradycardia, unspecified (2) Syncope: Status: Acute Code(s): R55 - Syncope and collapse Medications at Discharge Home Medications aspirin 81 mg chewable tablet 81 mg PO DAILY preventative 05/25/22 cholecalciferol (vitamin D3) 125 mcg (5,000 unit) tablet (Vitamin D3) 125 mcg PO DAILY suppliment 05/25/22 sertraline 50 mg tablet 100 mg PO QHS depression 12/17/22 cephalexin 250 mg capsule 250 mg PO .1 daily MoWedFri 02/26/24 cyanocobalamin (vitamin B-12) 1,000 mcg/mL injection solution 1,000 mcg IM QMONTH 02/26/24 krill oil 500 mg capsule 1,000 mg PO DAILY SUPPLEMENT 02/26/24 lidocaine 5 % topical patch See Rx Instructions topical .COMPLEX 02/26/24 methocarbamol 500 mg tablet 250 - 500 mg PO BID PRN PRN muscle spasm 02/26/24 turmeric 1 cap PO DAILY SUPPLEMENT 02/26/24 amlodipine 5 mg tablet 5 mg PO DAILY 30 days #30 tabs 02/27/24 lisinopril 10 mg tablet 10 mg PO DAILY 30 days #30 tabs 02/27/24 metoprolol tartrate 25 mg tablet 25 mg PO BID 30 days #60 tabs 02/27/24 Hospital Course Operations None Procedures EKG, Transthoracic echo and - (Chest x-ray, CTA head/neck) Summary of Care Provided Minutes Spent on Discharge: 35 Hospital Course: Patient is an 83-year-old female who presented to [facility] ED on 02/26/2024 after an episode of syncope at home. Short hospital course as noted below. Patient discharged home with no therapy needs in stable condition on 02/26. 1. Syncopal episode; abnormal TTE Presented after a witnessed syncopal episode at home. Unclear etiology but does seem most consistent with a vasovagal syncopal episode, possibly precipitated by mild dehydration and poor heart rate response while on beta-robbin medication. EKG showed sinus bradycardia, no ST changes. Chest x-ray nonacute. Troponin normal. Mild creatinine elevation and mildly hemoconcentrated labs, labs otherwise benign. CTA head/neck with no concerning findings. UA benign. Last echo in 2021 showed EF 55%, stage I diastolic dysfunction, no other abnormalities. ??? TTE on 02/26 showed EF 50%, moderate concentric LV hypertrophy, stage I diastolic dysfunction, posterior basal hypokinesis. Discussed over the phone with Dr. Malik with cardiology, who noted that the area in question was very small and he had only mild concern with this. He recommended nuclear stress test for further evaluation. Plan was for inpatient stress test, however family desired for patient to be discharged and have outpatient stress test done given patient's history of dementia causing her to have significant difficulty from a mental status standpoint while in the hospital. Discussed with nuclear medicine department, who looked at the schedule and hope is that stress test can be done early to mid next week. Outpatient nuclear stress test order placed and scheduling will call patient to confirm time of stress test. Otherwise, telemetry showed normal sinus rhythm during hospitalization. Did make some medication changes as notable low. PT/OT/case management followed, okay for discharge home with no needs. 2. Mild creatinine elevation, resolved ??? Creatinine 1.20 on admit, baseline creatinine appears to be around 0.9-1.1. Suspect due to mild dehydration. Gave 1 L of IV fluids on day of admission, repeat creatinine 0.80 on day of discharge. Patient had good urine output. Home lisinopril held during admission and on discharge as noted below. 3. Sinus bradycardia, improved ??? Noted on admission. EKG showed sinus bradycardia with heart rate in the low 50s, no ST changes. Is on Lopressor 50 mg twice daily at home for hypertension, reported adherence. Was on telemetry during hospitalization, which showed normal sinus rhythm while she was off of the beta-robbin m edication. No concern for heart block. Decreased beta-robbin dose on discharge as noted below. 4. Hypertension ??? Home regimen of Lopressor 50 mg twice daily, lisinopril 30 mg daily. Has been on this regimen for many years. Lopressor and lisinopril were held on admission and patient was nida (more content not included)...[facility]04-18-2024 History of Present illness Narrative* Cary Mckay - 02/27/2024 10:22 AM EDT POPULATION HEALTH NAVIGATION OUTREACH Action/I [place] Support: Called pt to schedule an appt in Pain Management. No voicemail, unable to lvm Reason for Outreach Care Gap/HCC or Scheduling Wellness Visits Care Gaps due: Specialty Scheduling Patient Contacted: Unable or unnecessary to reach patient: Unable to leave message APX message sent Navigation Signature: Cary Mckay February 27, 2024 10:22 AM [facility] Discharge summary Author Ezequiel Betancourt [facility] February 26, 2024 5:34pm Note Date/Time February 26, 2024 10: 58am [facility] Medical Records Department [address] [place] [address] Emergency Department Summary 02/26/24 MR#: [id number] Acct: [id number] Name: MONTSERRAT WEBB Tra Rep #:[id number] : 1940 83 From: Ezequiel Betancourt MD PCP: Dr. 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 Wentfine and in her normal state healthy breakfast. Has had no recent illness. No nausea, vomiting or diarrhea. No fever or chills. No chest pain. When her daughter was helping her get out of the bathtub she started feeling lightheaded and had a syncopal event. They had her on a chair. She never fell or got injured. This happened for about 10 minutes she actually had a complete loss ofconscious but is since resolved and is close to baseline currently. She denies any recent complaints. Family agrees that she has been in good state of health recently. Prior similar symptoms: Yes Recent Illness/Hospitalization: No PFSH PFSH Medical History Actinic skin damage Borderline abnormal TFTs Breast cancer Cerebral microvascular disease COVID-19 Dementia Essential hypertension Hx of breast cancer Hypertension Inflamed seborrheic keratosis Late onset Alzheimer's dementia without behavioral disturbance Lipoma Osteoporosis Over 65 years old Rosacea Solar lentigo Tongue lesion Viral warts Vitamin D deficiency Home Medications ascorbic acid (vitamin C) 500 mg tablet (Vitamin C) 500 mg PO DAILY suppliment 05/25/22 [History Last Taken 1 Week Ago ~05/18/22] aspirin 81 mg chewable tablet 81 mg PO DAILY preventative 05/25/22 [History Last Taken 05/25/22] cholecalciferol (vitamin D3) 125 mcg (5,000 unit) tablet (Vitamin D3) 125 mcg PODAILY suppliment 05/25/22 [History Last Taken 05/25/22] lisinopril 30 mg tablet 30 mg PO DAILY blood pressure 05/25/22 [History Last Taken 05/25/22] metoprolol tartrate 50 mg tablet 50 mg PO BID heart 05/25/22 [History Last Taken 05/25/22] amoxicillin 500 mg-potassium clavulanate 125 mg tablet (Augmentin) 1 tab PO BID 5 days #10 tabs 05/28/22 [Rx Last Taken Unknown] sertraline 50 mg tablet 100 mg PO QHS depression 12/17/22 [History Last Taken Unknown] Allergy/AdvReac Type Severity Reaction Status Date / Time No Known Allergies Allergy Verified 02/26/24 10:26 Surgical History H/O mastectomy Social History household members: spouse housing: house Smoking Status: Never smoker alcohol intake: never substance use type: does not use ROS ROS ED ROS Narrative Denies recent nausea, vomiting or diarrhea. Denies fever or chills. Denies dysuria. Denies headache or chest pain. Denies any abdominal pain or shortnessof breath. Review of Systems ROS Unobtainable: Denies due to encephalopathy Constitutional Constitutional ED: Denies chills or fever(s) Eyes Eyes: Denies blurry vision ENT ENT ED: Denies ear pain Cardiovascular Cardiovascular: Denies chest pain or palpitations Respiratory/Chest Respiratory/Chest: Denies cough or dyspnea Gastrointestinal Gastrointestinal: Denies abdominal pain, constipation, diarrhea, melena, nausea or vomiting Genitourinary Genitourinary ED: Denies dysuria or hematuria Musculoskeletal Musculoskeletal: Denies arthralgias or back pain Integumentary Denies abscess or Abrasions Neurologic Neurologic: Denies headache(s) Psychiatric Psychiatric: Denies anxiety or depression Endocrine Endocrinology: Denies cold intolerance Allergic/Immunologic Allergic/Immunologic ED: Denies mouth swelling, tongue swelling or urticaria EXAM Physical Exam Narrative Exam Narrative: Well-appearing 83-year-old female sitting upright in bed. Multiple family members at bedside. Vital signs are stable afebrile. Pulse ox 94% on room air no hypoxia. H EENT exam unremarkable atraumatic. Pupils round reactive light. Moist extremities. Neck nontender lymphadenopathy. Back nontender. Lungs clear to auscultation bilaterally. Heart regular rhythm rate about 60 no murmurappreciated. Chest wall and ribs nontender. Abdomen soft nontender. Moving all 4 extremities. 5 of 5 public policy associate strength. Dorsi plantarflexion intact. No deformities. Nontender. No edema. Neurologically she is awake alert. Answering questions following commands. No focal motor deficits. Const Vital Signs: 02/26/24 10:26 02/26/24 10:26 02/26/24 11:16 Temperature 97.6 F L Temperature Source Temporal Pulse Rate 57 L Respiratory Rate 18 Respiratory Effort Normal Respiratory Pattern Normal Blood Pressure 138/71 H Blood Pressure Mean 93 Pulse Ox 94 Oxygen Delivery Method Room Air Room Air 02/26/24 11:39 02/26/24 12:00 Temperature Temperature Source Pulse Rate 56 L 52 L Respiratory Rate 14 14 Respiratory Effort Respiratory Pattern Blood Pressure 125/78 H 156/70 H Blood Pressure Mean 93 98 Pulse Ox 95 98 Oxygen Delivery Method Room Air Room Air Positive well nourished and well developed; Negative for obese, cachectic, contractures or unkempt General Appearance ED: well developed and NAD; Negative for unkempt, cachectic, contractures, cyanotic, diaphoretic or pallor Nutritional Appearance: Negative for cachectic or obese HEENT Reports moist mucous membranes; Denies dry mucous membranes Negative for trauma or tenderness Mouth ED: No dry mucous membranes Mouth: No dry mucous membranes Eyes PERRL and EOMs intact bilaterally General Eye ED: Negative for pale conjunctiva or scleral icterus Neck no lymphadenopathy, supple and no JVD General: Negative for tenderness Lymph Lymphatic: Negative for other Chest Wall inspection of chest normal and palpation of chest normal Chest: Negative for other Resp normal respiratory effort and clear to auscultation bilaterally Effort and Inspection: Negative for retractions Auscultation: Negative for rales, rhonchi, wheezes or diminished lung sounds Cardio regular rate, regular rhythm, S1 normal heart sound, S2 normal heart sound and no murmurs Palpation: Negative for palpable S3 or palpable S4 Rate: Negative for bradycardia or tachycardic Rhythm: Negative for abnormal rhythm GI normal to inspection, nondistended, normoactive bowel sounds, non-tender, non-distended and no masses Inspection: Negative for abdominal distention Auscultation: normoactive bowel sounds Palpation: soft; Negative for tender, guarding or rebound tenderness present Back/Spine no CVA tenderness General Back: Negative for CVA tenderness Cervical Spine: Negative for cervical spine tenderness Thoracic Spine / Upper Back: Negative for thoracic spinal tenderness or paraspinal muscle tenderness Lumbar Spine / Lower Back: Negative for lumbar spinal tenderness Extremity normal to inspection General Extremety ED: Negative for edema or tenderness General Extremity: Negative for edema Neuro CN's II-XII intact bilaterally Neuro Narrative: Awake and alert. Answering questions and following commands. Sensorium / Orientation: alert and orientation impaired Motor Exam: strength 5/5 throughout Psych mental status grossly normal Appearance: Negative for unkempt Attitude: No agitated Mood & Affect: Negative for depressed, anxious or tearful Skin no rashes or lesions noted, no wounds and skin turgor normal General Skin Exam: Negative for jaundice or pallor Lesions: No lesion noted Rashes: No rashes noted Trauma: Negative for abrasion Wounds: Negative for wounds noted MDM MDM MDM Narrative Medical decision making narrative: 83-year-old female syncopal episode with no recent complaints. Exam is currently benign. Consider dysrhythmia, dehydration, infection versus anemia versus other etiologies. Pursue a cardiac workup. She has had prior UTIs causing this we will check a UA. Repeat exam patient is doing quite well at 12:45 PM. I spoke at length both herand her family went over all of her test results. He currently does not have a specific cause for her syncopal event. Clinically looks well. She is awake andalert. Her vital signs are stable. She will be admitted overnight for further evaluation for syncope. I have the hospitalist on page. History & Record Review Discussion w/independent historian: Patient and Family Additional record(s) reviewed:: Prior inpatient record, Prior outpatient record,Prior ED visit and Prior labs Lab Data Attestation: I reviewed the patient's lab results. Lab results narrative: CBC normal white count 6. H&H 14.5 and 44. Platelets 252. Electrolytes show gap of 3. BUN and creatinine 18 and 1.2. Glucose 171. Troponin 7. UA negative. No white or red cells. No bacteria or nitrites. Chest x-ray chronic changes. EKG sinus bradycardia rate of 53. Labs: Laboratory Results - last 24 hr 02/26/24 02/26/24 11:00 11:44 WBC 6.0 RBC 4.93 Hgb 14.5 Hct 44.7 MCV 90.7 MCH 29.4 MCHC 32.4 RDW Std Deviation 45.1 H RDW Coeff of Juan 13.4 Plt Count 252 MPV 10.7 Immature Gran % (Auto) 0.300 Neut % (Auto) 59.5 Lymph % (Auto) 28.0 Loíza % (Auto) 7.5 Eos % (Auto) 3.5 Baso % (Auto) 1.2 H Absolute Neuts (auto) 3.6 Absolute Lymphs (auto) 1.69 Nucleated RBC % 0 Sodium 138 Potassium 3.6 Chloride 107 Carbon Dioxide 28.0 Anion Gap 3 L BUN 18 Creatinine 1.20 H Estim Creat Clear Calc 36.57 Est GFR (MDRD) Af Amer 55 L Est GFR (MDRD) Non-Af 45 L BUN/Creatinine Ratio 15.0 Glucose 171 H Calcium 8.9 Troponin I High Sens 7 Urine Color Yellow Urine Clarity Clear Urine pH 7.0 Ur Specific [place] 1.010 Urine Protein Negative Urine Glucose (UA) Normal Urine Ketones Negative Urine Occult Blood Negative Urine Nitrite Negative Urine Bilirubin Negative Urine Urobilinogen Normal Ur Leukocyte Esterase Negative Urine RBC 0 SEEN Urine WBC 0 SEEN Ur Squamous Epith Cells 0-5 SEEN Urine Bacteria 0 SEEN Urine Mucus 0 SEEN Radiography Chest X-Ray - ED: Read by ED Physician, Read by Radiologist, Heart, Lungs, Mediastinum, Bony Structures, No Acute Disease and Chronic Changes Diagnostic Testing: Clinical Impression(s) from Imaging Studies Chest X-Ray 02/26/24 12:05 IMPRESSION: Atelectatic changes or scarring in the right midlung and left lung base. No active pulmonary disease. Electronically Signed: Nick Russ MD at 12:20 EDT , Chest x-ray, portable, single view interpreted both by myself and the radiologist. Normal cardiac silhouette. Normal lung alexander. Chronic scarring in the lungs. No infiltrate or effusion. No acute processes. Rhythm Strip Rhythm Strip: Sinus bradycardia Rate: 53 Ectopy: None EKG Initial EKG: Attestation: I personally reviewed and interpreted this EKG as follows: Interpretation: Sinus Rhythm and Sinus Bradycardia Comments: Sinus bradycardia rate of 53 no acute signs of LA or ischemia. No ST elevation. No significant dysrhythmia other than mild bradycardia. Discharge Plan Triage Chief Complaint: Syncope ED Provider: Ezequiel Betancourt Dx/Rx/DC Orders Clinical Impression: Syncope, History of breast cancer, Bradycardia, sinus Prescriptions: No Action ascorbic acid (vitamin C) [Vitamin C] 500 mg Tablet 500 mg PO DAILY metoprolol tartrate 50 mg tablet 50 mg PO BID Patient Comments: TAKE 1 TABLET BY MOUTH TWICE DAILY lisinopril 30 mg tablet 30 mg PO DAILY Patient Comments: Take 1 tablet by mouth once daily. aspirin 81 mg Tablet,Chewable 81 mg PO DAILY cholecalciferol (vitamin D3) [Vitamin D3] 125 mcg (5,000 unit) Tablet 125 mcg PO DAILY amoxicillin-pot clavulanate [Augmentin] 500-125 mg tablet 1 tab PO BID 5 Days Qty: 10 0RF sertraline 50 mg tablet 100 mg PO QHS Patient Comments: TAKE 1 TABLET BY MOUTH DAILY AT BEDTIME Primary Care Provider: Lawson Ramos Referrals: Lawson Ramos [[facility]] - Disposition Disposition: Acute Care Hospital [facility] What to do if you have Problems For any increased pain, shortness of breath, bleeding, nausea or vomiting, chestpain, or any unexpected problems, contact your Primary Care Provider. Call [facility] ([phone]) or report to the closest Emergency Room. Call 911 if necessary. 02/26/24 1734 <Electronically signed by Ezequiel Betancourt MD> Cosigner Signature (if applicable): CC: Dr. Lawson Ramos, ~ Signed [facility] Work Phone: 1(267) 993-737504-17-2024 History and physical note Author Dex Landaverde [facility] February 26, 2024 5:32pm Note Date/Time February 26, 2024 12: 56pm [facility] Medical Records Department [address] [place] [address] H&P Exam - Hospitalist 02/26/24 1256 MR#: [id number] Acct: [id number] Name: MONTSERRAT WEBB Rep #:[id number] : 1940 83 From: Dex adame DO PCP: Dr. Lawson Ramos DO Status:AD M [facility] Location: [place] [address] HPI - General General Date of Admission: 02/26/24 Date of Service: 02/26/24 Chief Complaint: Syncopal episode HPI Narrative MONTSERRAT WEBB, is a 83 F who presented to [facility] ED on 02/26/2024 after having a syncopal episode at home. Patient seen at bedside in the ED, and [id number] present. Patient was sitting up fairly comfortably in bed, conversing normally, in no acute distress. Patient remembers eating breakfast without issue and then was in the bathtub after breakfast when she began to feel somewhat clammy and lightheaded. Her [id number] helped her out of the bathtub and she does not remember much after that until arriving in the ED. [id number] and supplemented patient history. [id number] states that the patient passed out after she was held out of bathtub. She and patient's put her on a chair, so she never fell or was injured. However, patient was unconscious for at least 10 to 15 minutes, and family noted that even in the squad ride over she was still verylethargic and out of it. She returned to her baseline about 45 minutes to 1 hour after the episode. They feel that the patient is currently at her baselinemental status. Patient does have a history of a few episodes like this in the past. Had a syncopal episode concerning for stroke back in 2021 requiring a short admission here. She presented at that time after having presyncopal symptoms and then syncopized and into her planter while working out in the garden. During that hospitalization, workup was largely negative. Her echo showed an EF of 55%, stage I diastolic function, no other abnormalities. Orthostatic vitals were negative. Cardiac enzymes were negative. CT brain without contrast was unremarkable. CTA head/neck was unremarkable except for calcific plaque at origin of right internal carotid artery. Neurology followed and did not feel the carotid findings were related to her symptoms. She improved back to her baseline mental status fairly quickly but that hospitalization was complicated by bright red blood rectum that was suspected secondary to ischemic colitis. She was also found to have a UTI at that time. In the ED, she was found to have sinus bradycardia with heart rate consistently in the 50s. Blood pressure was initially normotensive to mildly hypertensive. Did have mild creatinine elevation of 1.20 and labs appeared mildly hemoconcentrated compared to previous labs but were otherwise fairly benign. Chest x-ray was nonacute. Patient did have significant hypertension to the low 200 systolicshortly after arriving to the floor, was asymptomatic and had no focal neurologic symptoms. CTA head/neck was obtained to assess for CVA, was unremarkable. Given syncope of unclear etiology, patient was hospitalized for further management. [facility] Medical History (Updated 02/26/24 @ 15:57 by Jeri Winter) Actinic skin damage Borderline abnormal TFTs Breast cancer Cerebral microvascular disease CHF (congestive heart failure) COVID-19 Dementia Essential hypertension Hx of breast cancer Hypertension Inflamed seborrheic keratosis Late onset Alzheimer's dementia without behavioral disturbance Lipoma Osteoporosis Over 65 years old Rosacea Solar lentigo Tongue lesion Viral warts Vitamin D deficiency Home Medications aspirin 81 mg chewable tablet 81 mg PO DAILY preventative 05/25/22 [History Last Taken 02/26/24] cholecalciferol (vitamin D3) 125 mcg (5,000 unit) tablet (Vitamin D3) 125 mcg PODAILY suppliment 05/25/22 [History Last Taken 02/26/24] lisinopril 30 mg tablet 30 mg PO DAILY blood pressure 05/25/22 [History Last Taken 02/26/24] metoprolol tartrate 50 mg tablet 50 mg PO BID heart 05/25/22 [History Last Taken 02/26/24] sertraline 50 mg tablet 100 mg PO QHS depression 12/17/22 [History Last Taken Unknown] cephalexin 250 mg capsule 250 mg PO .1 daily MoWedFri 02/26/24 [History Last Taken 02/26/24] cyanocobalamin (vitamin B-12) 1,000 mcg/mL injection solution 1,000 mcg IM QMONTH 02/26/24 [History Last Taken Unknown] krill oil 500 mg capsule 1,000 mg PO DAILY SUPPLEMENT 02/26/24 [History Last Taken 02/26/24] lidocaine 5 % topical patch See Rx Instructions topical .COMPLEX 02/26/24 [History Last Taken Unknown] methocarbamol 500 mg tablet 250 - 500 mg PO BID PRN PRN muscle spasm 02/26/24 [History Last Taken 02/26/24] turmeric 1 cap PO DAILY SUPPLEMENT 02/26/24 [History Last Taken 02/26/24] Allergy/AdvReac Type Severity Reaction Status Date / Time No Known Allergies Allergy Verified 02/26/24 10:26 Family History no significant family his Surgical History (Updated 02/26/24 @ 15:57 by Jeri Winter) H/O mastectomy Social History household members: spouse housing: house Smoking Status: Never smoker alcohol intake: never substance use type: does not use ROS Constitutional Constitutional: Denies chills, fatigue, fever(s) or weakness Eyes Eyes: Denies change in vision Cardiovascular Cardiovascular: Denies chest pain Respiratory/Chest Respiratory/Chest: Denies cough, shortness of breath at rest or shortness of breath with exertion Gastrointestinal Gastrointestinal: Denies abdominal pain, nausea or vomiting Genitourinary Genitourinary: Denies dysuria Musculoskeletal Musculoskeletal: Denies arthralgias, back pain or myalgias Neurologic Neurologic: Denies focal weakness, headache(s) or numbness Vital Signs Vital Signs Vital Signs: 02/26/24 10:26 02/26/24 10:26 02/26/24 11:16 Temperature 97.6 F L Temperature Source Temporal Pulse Rate 57 L Respiratory Rate 18 Respiratory Effort Normal Respiratory Pattern Normal Blood Pressure 138/71 H Blood Pressure Mean 93 Pulse Ox 94 Oxygen Delivery Method Room Air Room Air 02/26/24 11:39 02/26/24 12:00 Temperature Temperature Source Pulse Rate 56 L 52 L Respiratory Rate 14 14 Respiratory Effort Respiratory Pattern Blood Pressure 125/78 H 156/70 H Blood Pressure Mean 93 98 Pulse Ox 95 98 Oxygen Delivery Method Room Air Room Air Weight Weight: 83.9 kg Body Mass Index (BMI) 31.7 Physical Exam Const alert, oriented x3, no apparent distress and average body habitus Constitutional Narrative: Pleasant elderly female, sitting up comfortably in bed, conversing normally, in no acute distress. General Appearance: cooperative and comfortable HEENT normocephalic, head/scalp atraumatic, hearing grossly normal bilaterally and nasal mucous membranes and turbinates normal Eyes PERRL, EOMs intact bilaterally and conjunctivae normal Neck full ROM Chest inspection of chest normal Resp normal respiratory effort, normal air movement, no use of accessory muscles and clear to auscultation bilaterally Cardio no murmurs and peripheral pulses 2+ throughout Cardio Narrative: Bradycardic, regular rhythm. GI normal to inspection, nondistended, normoactive bowel sounds, soft to palpation,non-tender and non-distended Back/Spine normal ROM Extremity normal to inspection, full ROM and no pedal edema Skin no rashes or lesions noted Neuro moves all extremities and no focal motor deficits Speech: speech normal Psych mental status grossly normal Results Lab / Micro Data 02/26/24 11:00 02/26/24 11:00 Labs: Laboratory Results - last 24 hr 02/26/24 11:00: WBC 6.0, RBC 4.93, Hgb 14.5, Hct 44.7, MCV 90.7, MCH 29.4, MCHC 32.4, RDW Std Deviation 45.1 H, RDW Coeff of Juan 13.4, Plt Count 252, MPV 10.7, Immature Gran % (Auto) 0.300, Neut % (Auto) 59.5, Lymph % (Auto) 28.0, Loíza % (Auto) 7.5, Eos % (Auto) 3.5, Baso % (Auto) 1.2 H, Absolute Neuts (auto) 3.6, Absolute Lymphs (auto) 1.69, Nucleated RBC % 0, Sodium 138, Potassium 3.6, Chloride 107, Carbon Dioxide 28.0, Anion Gap 3 L, BUN 18, Creatinine 1.20 H, Estim Creat Clear Calc 36.57, Est GFR (MDRD) Af Amer 55 L, Est GFR (MDRD) Non-Af45 L, BUN/Creatinine Ratio 15.0, Glucose 171 H, Calcium 8.9, Troponin I High Sens 7 02/26/24 11:44: Urine Color Yellow, Urine Clarity Clear, Urine pH 7.0, Ur Specific [place] 1.010, Urine Protein Negative, Urine Glucose (UA) Normal, UrineKetones Negative, Urine Occult Blood Negative, Urine Nitrite Negative, Urine Bilirubin Negative, Urine Urobilinogen Normal, Ur Leukocyte Esterase Negative, Urine RBC 0 SEEN, Urine WBC 0 SEEN, Ur Squamous Epith Cells 0-5 SEEN, Urine Bacteria 0 SEEN, Urine Mucus 0 SEEN Rhythm Strip Rhythm Strip: Sinus bradycardia Rate: 53 Ectopy: None Imaging Radiology Impression Chest X-Ray 02/26/24 12:05 IMPRESSION: Atelectatic changes or scarring in the right midlung and left lung base. No active pulmonary disease. Electronically Signed: Nick Russ MD at 12:20 EDT , Assessment & Plan Assessment/Plan (1) Bradycardia, sinus: (2) Syncope: PLAN: Plan Patient is an 83-year-old female who presented to [facility] ED on 02/26/2024 after an episode of syncope at home. 1. Syncopal episode Presented after a witnessed syncopal episode at home. Unclear etiology but doesseem most consistent with a vasovagal syncopal episode, possibly precipitated bymild dehydration and poor heart rate response while on beta-robbin medication. EKG showed sinus bradycardia, no ST changes. Chest x-ray nonacute. Troponin normal. Mild creatinine elevation and mildly hemoconcentrated labs, labs otherwise benign. CTA head/neck with no concerning findings. UA benign. Last echo in 2021 showed EF 55%, stage I diastolic dysfunction, no other abnormalities. ? Admit under observation status to PCU. Continue cardiac monitoring. Echo ordered. Orthostatic vitals ordered. PT/OT/case management consulted. Will hold home beta-robbin for now. Monitor closely. 2. Mild creatinine elevation ? Creatinine 1.20 on admit, baseline creatinine appears to be around 0.9-1.1. Suspect due to mild dehydration. Will give patient 1 L LR over 8 hours today, recheck BMP tomorrow. Monitor urine output. Hold home lisinopril for now. 3. Sinus bradycardia ? Noted on admission. EKG showed sinus bradycardia with heart rate in the low 50s, no ST changes. Is on Lopressor 50 mg twice daily at home for hypertension,reports adherence. Seems less likely to be symptomatic bradycardia but given suspected predisposition for syncopal episodes, may need to decrease beta-robbin dosing and consider adding other antihypertensives as needed on discharge. 4. Hypertension ? Home regimen of Lopressor 50 mg twice daily, lisinopril 30 mg daily. Holding both medications for now as noted above. IV hydralazine 10 mg or 4 hours as needed for systolic blood pressures greater than 170. 5. Mood disorder ? Stable. Continue home sertraline. 6. History of breast cancer ? Remote history in 2003 s/p mastectomy and chemotherapy with no recurrence. DVT prophylaxis: Heparin subcu CODE STATUS: Full code, verified Expected disposition: Home, 1 to 2 days Total clinical time spent by myself addressing the patient's medical issues, reviewing all the data, and collaborating with patient's care team: 55 minutes. Charges/Coding Visit Charges Inpatient E&M: 92602 Init Hosp L2 02/26/24 1732 <Electronically signed by Dex Landaverde DO> Cosigner Signature (if applicable): CC: Dr. Dex Landaverde DO; Dr. Lawson Ramos DO~ Signed [facility] Work Phone: 1(344) [phone] History of Present illness Narrative* Lawson Ramos DO - 02/24/2024 10:12 AM EDT CC: Montserrat Webb is a 83 year old female who presents to the office for back pain HPI: Seen in office in [place] by Gloria Remy CNP, as below: Accompanied by daughter Mallorie and assisting in HPI today. Has chronic low back pain. Since the season of fall (3-4 months) has increased significantly in pain. Goes across her entire lower back but does not radiate. Uses heating pad. Doesn't typically use pain medication. Doesn't necessarily like to take medications. Standing is worse. Difficult to walk any distance. Difficult going up steps. Is using cane, feels more stable. Hasn't had any falls for 3-4 years. Currently She is present with daughters Sendy and Mallorie in the office today who are helping her with mobility as well as answering questions She has been having increased mid and low back chronic pain. Since the season of fall (3-4 months) has increased significantly in pain. Goes across her entire lower and mid back but does not radiate.Uses heating pad. Doesn't typically use pain medication. Doesn't necessarily like to take medications but has gotten to the point that she needs to do something. They installed a stair lift chair in t he home recently. Had xrays of lumbar obtained which showed that she has significant DJD and DDD and scoliosis changes. Standing is worse. Difficult to walk any distance. Difficult going up steps. Is using cane, feels more stable. Hasn't had any falls for 3-4 years. PAST MEDICAL HISTORY Diagnosis Date Anxiety Benign essential hypertension Bunion CHF (congestive heart failure) (HCC) Chronic kidney disease, stage III (moderate) (HCC) Decreased GFR Diverticulosis of colon (without mention of hemorrhage) Dysuria Fatigue Internal hemorrhoids without mention of complication Low back pain Memory loss Mild cognitive impairment Neuralgia and neuritis Nevus, non-neoplastic Osteopenia Overactive bladder PMH - PAST MEDICAL HISTORY OF temporomandibular joint disorders PMH - PAST MEDICAL HISTORY OF 2003 breast cancer - with chemotherapy and right mastectomy Pneumonia, organism unspecified(486) Middle of February Raynaud's syndrome Seborrheic keratosis Secondary cardiomyopathy, unspecified Vitamin D deficiency PAST SURGICAL HISTORY Procedure Laterality Date COLONOSCOPY FLX DX W/COLLJ SPEC WHEN PFRMD 10/14/07 HYSTERECTOMY N/A 1983 Partial PAST SURGICAL HISTORY OF 1991 breast bx PAST SURGICAL HISTORY OF 2003 breast cancer right/chemotherapy PAST SURGICAL HISTORY OF May 2010 Port removed Current Outpatient Medications Medication Sig metoprolol tartrate, short acting, (LOPRESSOR) 50 mg tablet Take 1 tablet by mouth two times a day. lisinopril (ZESTRIL) 30 mg tablet Take 1 tablet by mouth once daily. sertraline (ZOLOFT) 50 mg tablet Take 1 tablet by mouth daily at bedtime. methocarbamol (ROBAXIN) 500 mg tablet Take 1/2 to 1 tablet twice daily as needed for back pain, spasms lidocaine (SALONPAS) 4 % patch Apply 1 application as directed once daily. cyanocobalamin 1,000 mcg/mL Inject 1 mL intramuscularly one time a week for 30 days, THEN 1 mL every 2 weeks for 60 days, THEN 1 mL once every month. cephALEXin (KEFLEX) 250 mg capsule Take 1 capsule by mouth 3 days per week: Saturday, Saturday, Saturday. metroNIDAZOLE 0.75 % cream Apply to affected area twice daily. For face for rosacea atorvastatin (LIPITOR) 40 mg tablet Take by mouth. albuterol HFA (VENTOLIN HFA) 90 mcg/actuation inhaler Inhale 2 Puffs as instructed every 4 hours asneeded for Wheezing/Shortness of Breath. ergocalciferol, vitamin D2, (DRISDOL) 50,000 unit capsule Take 1 capsule by mouth once each week. No current facility-administered medications for this visit. ALLERGIES No Known Allergies Social History Tobacco Use Smoking status: Never Smokeless tobacco: Never Vaping Use Vaping Use: Never used Substance Use Topics Alcohol use: No Drug use: No ROS: See HPI PE: BP 146/88 Pulse 60 Temp (Src) 97 (Left Tympanic) Resp 16 Wt 141 lb (64.0kg) Gen: A&OX3, NAD, non-toxic appearing HEENT: PERRLA, EOMs intact b/l, nares without drainage, pharynx without erythema, exudate, lesions,or drainage. Uvula midline. Neck: No LAD, no thyromegaly, no meningismus. CV: RRR, no murmur Lungs: CTA b/l, no wheezing Skin: No rashes, lesions, or wounds on exposed skin. Back: reduced ROM thoracic and lumbar spine, + paraspinal muscle tension and spasm with scoliosis changes No edema, normal pulses ASSESSMENT/PLAN: 1. Chronic midline low back pain without sciatica - ICD9: 724.2, 338.29, ICD10: M54.50, G89.29 (primary diagnosis) Referral to pain mgmt for opinion regarding injections is next step and she is willing to pursue this rx for prn use as d/w her and daughters today- family will help manage this medication Use of rollator walker now recommended, rx printed for her today F/u in 2-3 months in office - TRAMADOL 50 MG TABLET - CONSULT TO PAIN MGT - ULTRA-LIGHT ROLLATOR MISC 2. Recurrent UTI (urinary tract infection) - ICD9: 599.0, ICD10: N39.0 - CEPHALEXIN 250 MG CAPSULE 3. Prophylactic antibiotic - ICD9: V58.62, ICD10: Z79.2 - CEPHALEXIN 250 MG CAPSULE 4. Osteoarthritis of spine with radiculopathy, lumbar region - ICD9: 721.3, ICD10: M47.26 See above - TRAMADOL 50 MG TABLET - CONSULT TO PAIN MGT - ULTRA-LIGHT ROLLATOR MISC 5. Osteoarthritis of spine with radiculopathy, thoracic region - ICD9: 721.2, ICD10: M47.24 See above - TRAMADOL 50 MG TABLET - CONSULT TO PAIN MGT - ULTRA-LIGHT ROLLATOR MISC 6. Late onset Alzheimer's disease without behavioral disturbance (HCC) - ICD9: 331.0, 294.10, ICD10: G30.1, F02.80 See above Lawson Ramos DO PDMP website checked and validated. All prescriptions have been APPROPRIATELY filled. No suspiciousactivity was identified. 02/27/2024 by Lawson Ramos DO Return if no improvement. Follow up with Lawson Ramos DO. To ER if develops chest pain, shortness of breath. Discussed risks, benefits, alternatives, and potential side effects of medications. Patient/Guardian expressed understanding and agreed with the plan. See patient instructions. Lawson Ramos DO [address] [place] [address] documented in this encounterKind[facility]03-21-[facility]24 Miscellaneous Notes* Telephone Encounter - Althea Espinoza MA - 01/30/2024 2:51 PM EDT Appt scheduled with Dr. Ramos on 02/24/24 at 10 AM for 40 minutes. Other appt cancelled. Althea Espinoza MA * Telephone Encounter - Chandni Walker LPN - 01/30/2024 2:31 PM EDT Pt's daughter called back and would like to have the apt 02/24/24 10 am for 40 minutes. Please book apt. Once this is booked please cancel her apt on 03/09/24. Chandni Walker LPN * Telephone Encounter - Althea Espinoza MA - 01/30/2024 12:46 PM EDT Message left for pt to call back. Althea Espinoza MA * Telephone Encounter - Lawson Ramos DO - 01/30/2024 10:57 AM EDT I currently have an opening on 02/23 at 10 am (should be 40min) if wants to be seen sooner Lawson Ramos DO * Telephone Encounter - Ela Luo OCCA - 01/23/2024 9:13 AM EDT NOV is scheduled for 03/09/[address] Ramos. Please advise if sooner appointment is needed. Thank you. Ela Strait, OCCA * Telephone Encounter - Fernanda Alberts - 01/23/2024 9:08 AM EDT Pts daughter called concerned about her Moms pain. She states her back pain has not changed much. She does have medication that she was taking as needed but she is going to have pt take consistent tosee if that helps. She would like to know if there is further testing needed or should she make an appointment to come in sooner than her next visit with Dr. Ramos. documented in this encounterKind[facility]01-03-2024 History of Present illness Narrative* Mallory Alberto RT(R) - 11/13/2023 11:50 AM EST Radiology Service Progress Note PATIENT NAME: Montserrat Webb DATE OF SERVICE: November 13, 2023 TIME: 11:48 AM PATIENT IDENTITY VERIFICATION COMPLETED USING TWO (2) IDENTIFIERS: Name and Date of confirmedby patient verbally. FALL SCREENING: Has the patient had 2 falls in the last year or 1 fall with injury or currently using an Ambulatory Assistive Device (Walker, Cane, Wheelchair, Crutches, etc.)? Yes, Patient High Riskfor Falls What interventions were put in place to prevent falls during this visit? Offered Assistance with Transfers/Clothing and Instructed Patient to Remain Seated (Not on Exam Table) Until Exam PATIENT GENDER DATA: Female. status: : No status: NO. PATIENT RELEVANT IMPLANT DATA REVIEWED: Not Applicable RADIOLOGY DEPARTMENT: General X-ray: Exam(s) Completed: Spine X-Ray(s): Thoracic and Lumbar AP / LAT / L5-S1 PERIPHERAL IV DATA: Not applicable SIGNED BY: RT Juwan(R) November 13, 2023 11:48 AM documented in this encounterKindred [facility]10-21-2023 History of Present illness Narrative* Lawson Ramos, DO - 08/31/2023 7:37 AM EDT CC: Montserrat Webb is a 83 year old female who presents to the office for follow up HPI: Present with daughter Mallorie in office today HTN, overall well controlled, taking medications as prescribed. This is now controlled. Has been drinking 2 large glasses of water daily now or pedialyte. Not drinking any protein shakes. Taking the lisinopril medication without SE Dementia, anxiety seems to be stable/controlled, no mood concerns. No recent falls, normal appetite, eating well. Slowly worsening of symptoms. Diagnosed in 2014 by previous PCP CKD, stage 3, not always remember to be drinking more water regularly. Does have it sitting beside her bed and seat in the living room Has been struggling with fatigue, sometimes sleeping until 11 am or 12 noon Vitamin D deficiency, taking supplement regularly Low back pain, seems to be stable, Did do some therapy with benefit but not regularly exercising athome. Anxiety, mood, stable PAST MEDICAL HISTORY Diagnosis Date Anxiety Benign essential hypertension Bunion CHF (congestive heart failure) (HCC) Chronic kidney disease, stage III (moderate) (HCC) Decreased GFR Diverticulosis of colon (without mention of hemorrhage) Dysuria Fatigue Internal hemorrhoids without mention of complication Low back pain Memory loss Mild cognitive impairment Neuralgia and neuritis Nevus, non-neoplastic Osteopenia Overactive bladder PMH - PAST MEDICAL HISTORY OF temporomandibular joint disorders PMH - PAST MEDICAL HISTORY OF 2003 breast cancer - with chemotherapy and right mastectomy Pneumonia, organism unspecified(486) Middle of February Raynaud's syndrome Seborrheic keratosis Secondary cardiomyopathy, unspecified Vitamin D deficiency PAST SURGICAL HISTORY Procedure Laterality Date COLONOSCOPY FLX DX W/COLLJ SPEC WHEN PFRMD 10/14/07 HYSTERECTOMY N/A 1983 Partial PAST SURGICAL HISTORY OF 1991 breast bx PAST SURGICAL HISTORY OF 2003 breast cancer right/chemotherapy PAST SURGICAL HISTORY OF May 2010 Port removed Current Outpatient Medications Medication Sig cephALEXin (KEFLEX) 250 mg capsule Take 1 capsule by mouth 3 days per week: Saturday, Saturday, Saturday. metoprolol tartrate, short acting, (LOPRESSOR) 50 mg tablet Take 1 tablet by mouth twice daily. metroNIDAZOLE 0.75 % cream Apply to affected area twice daily. For face for rosacea atorvastatin (LIPITOR) 40 mg tablet Take by mouth. albuterol HFA (VENTOLIN HFA) 90 mcg/actuation inhaler Inhale 2 Puffs as instructed every 4 hours asneeded for Wheezing/Shortness of Breath. ergocalciferol, vitamin D2, (DRISDOL) 50,000 unit capsule Take 1 capsule by mouth once each week. Syringe with Needle, Disp, (BD LUER-AMELIA SYRINGE) 3 mL 25 gauge x 1 1 Syringe as directed. lisinopril (ZESTRIL) 30 mg tablet Take 1 tablet by mouth once daily. sertraline (ZOLOFT) 50 mg tablet Take 1 tablet by mouth daily at bedtime. cyanocobalamin 1,000 mcg/mL Inject 1 mL intramuscularly one time a week for 30 days, THEN 1 mL every 2 weeks for 60 days, THEN 1 mL once every month. No current facility-administered medications for this visit. ALLERGIES No Known Allergies Social History Tobacco Use Smoking status: Never Smokeless tobacco: Never Vaping Use Vaping Use: Never used Substance Use Topics Alcohol use: No Drug use: No ROS: See HPI PE: BP 124/70 Pulse 60 Temp (Src) 97 (Left Tympanic) Resp 16 Ht 5' 3.78 (1.62m) Wt 140 lb (63.5kg) BMI 24.20 kg/(m^2). Gen: A&OX3, NAD, non-toxic appearing HEENT: PERRLA, EOMs intact b/l, nares without drainage, pharynx without erythema, exudate, lesions,or drainage. Uvula midline. Neck: No LAD, no thyromegaly, no meningismus. CV: RRR, no murmur, normal s1s2 Lungs: CTA b/l, no w/r/r Abd: soft, NT, non distended No leg edema, normal peripheral pulses Memory loss with acute/short term memory difficulty Pleasant, well dressed ASSESSMENT/PLAN: 1. Hypertension, essential - ICD9: 401.9, ICD10: I10 (primary diagnosis) - Controlled - Continue current medications - Recommend home blood pressure monitoring, to bring results to next visit - Encouraged sodium restriction, DASH or Mediterranean diet - Recommend regular aerobic exercise - LISINOPRIL 30 MG TABLET 2. Anxiety as acute reaction to exceptional stress - ICD9: 308.0, ICD10: F41.1, F43.0 stable - SERTRALINE 50 MG TABLET 3. Need for influenza vaccination - ICD9: V04.81, ICD10: Z23 - INFLUENZA VACCINE, PRSV FREE, AGE 65+ YR, HIGH DOSE, QUADRIVALENT (FLUZONE HIGH-DOSE) 4. Vitamin B12 deficiency - ICD9: 266.2, ICD10: E53.8 Add on vitamin B12 injections. She is struggling with fatigue despite taking oral supplement - CYANOCOBALAMIN (VIT B-12) 1,000 MCG/ML INJECTION SOLUTION - BD LUER-AMELIA SYRINGE 3 ML 25 GAUGE X 1 5. Other cardiomyopathies (HCC) - ICD9: 425.4, ICD10: I42.8 - stable 6. Chronic kidney disease, stage 3a (HCC) - ICD9: 585.3, ICD10: N18.31 - eGFR: 57 Stable - Counseled on avoiding NSAIDs, adequate hydration - Counseled on low sodium diet 7. Late onset Alzheimer's disease without behavioral disturbance (HCC) - ICD9: 331.0, 294.10, ICD10: G30.1, F02.80 Has been diagnosed x 8 years, overall slowly declining yet currently stable and still able to live at home with help from and grown adult children 8. Vitamin D deficiency - ICD9: 268.9, ICD10: E55.9 Continue supplement 9. Dyslipidemia - ICD9: 272.4, ICD10: E78.5 - Controlled - Counseled on healthy diet and regular exercise 10. Hyperglycemia - ICD9: 790.29, ICD10: R73.9 stable 11. Age-related osteoporosis without current pathological fracture - ICD9: 733.01, ICD10: M81.0 - Reviewed the need for Calcium and Vitamin D supplements and weight bearing exercise as tolerated 12. Fatigue, unspecified type - ICD9: 780.79, ICD10: R53.83 See above, add on vitamin B12 injections, recheck labs in 3-6 months as ordered Lawson Ramos DO Return if no improvement. Follow up with Lawson Ramos DO. To ER if develops chest pain, shortness of breath. Discussed risks, benefits, alternatives, and potential side effects of medications. Patient/Guardian expressed understanding and agreed with the plan. See patient instructions. Lawson Ramos DO [address] [place] [address] documented in this encounterKind[facility]06-14-2023 Miscellaneous Notes* Telephone Encounter - Mallory Morgan - 04/24/2023 11:34 AM EDT Patient has been identified by name and date of : Yes Last office visit in this department: 02/22/2023 Labs-02/22/23 NOV-08/30/23 RX INSTRUCTIONS: Patient aware RX will be sent to pharmacy. No need to notify patient. Patient phones requesting refills as follows: Requested Prescriptions Pending Prescriptions Disp Refills sertraline (ZOLOFT) 50 mg tablet 90 tablet 1 Sig: Take 1 tablet by mouth daily at bedtime. Please review and advise. Malloryirma Morgan documented in this encounterKind[facility]04-18-2023 Miscellaneous Notes* Telephone Encounter - Scarlett Gordon MA - 02/26/2023 10:58 AM EDT ELE 02/22/23 08/30/23 Scarlett Gordon MA * Telephone Encounter - Josie Navas - 02/26/2023 9:41 AM EDT Patient has been identified by name and date of : Yes Requested Prescriptions Pending Prescriptions Disp Refills metoprolol tartrate, short acting, (LOPRESSOR) 50 mg tablet 180 tablet 2 Sig: Take 1 tablet by mouth twice daily. RX INSTRUCTIONS: Patient aware RX will be sent to pharmacy. No need to notify patient. Josie Navas documented in this encounterKind[facility]04-11-2023 Miscellaneous Notes* Telephone Encounter - Lily Ho LPN - 02/19/2023 1:30 PM EDT Faxed as below. * Telephone Encounter - Lawson Ramos DO - 02/19/2023 11:50 AM EDT Noted, rx printed Lawson Ramos DO * Telephone Encounter - Loli Lee LPN - 02/19/2023 10:14 AM EDT Pt's daughter calls to report a rx for a hydraulic bath seat is needed. Daughter reports that Kerrie said if pt has a rx from she will not have to pay any tax on the order. Fax order to: [phone]. Loli Lee LPN documented in this encounterKindred [facility]02-02-2023 Miscellaneous Notes* Telephone Encounter - Holley Swenson MA - 12/13/2022 3:54 PM EST Attempted to contact patient for a third time. No answer and VM left full. Will send a letter. Holley Swenson MA * Telephone Encounter - Kitty Forbes LPN - 12/05/2022 3:20 PM EST 2nd attempt to reach pt.Mail box is full can not leave message . * Telephone Encounter - Holley Swenson MA - 12/03/2022 2:28 PM EST Attempted to contact patient. VM full. Will need to try again later. Holley Swenson MA * Telephone Encounter - Sierra Pedroza APRN.CNP - 12/03/2022 1:57 PM EST Please call patient and let her know that the US of soft tissue was negative. No abnormalities seenat the area of palpable concern. No masses or fluid collection seen. Thank you, Sierra Pedroza APRN.ALMAS documented in this encounterKindred [facility]01-20-2023 History of Present illness Narrative* RT Celine(R) - 11/30/2022 2:00 PM EST Radiology Service Progress Note PATIENT NAME: Montserrat Webb DATE OF SERVICE: November 30, 2022 TIME: 2:37 PM PATIENT IDENTITY VERIFICATION COMPLETED USING TWO (2) IDENTIFIERS: Name and Date of confirmedby patient verbally. FALL SCREENING: Has the patient had 2 falls in the last year or 1 fall with injury or currently using an Ambulatory Assistive Device (Walker, Cane, Wheelchair, Crutches, etc.)? No PATIENT GENDER DATA: Female. status: : No status: NO. PATIENT RELEVANT IMPLANT DATA REVIEWED: Not Applicable RADIOLOGY DEPARTMENT: Ultrasound PERIPHERAL IV DATA: Not applicable SIGNED BY: RT Celine(R) November 30, 2022 2:37 PM documented in this encounterKindred [facility]01-18-2023 Miscellaneous Notes* Telephone Encounter - Suzie Baxter RN - 11/28/2022 3:13 PM EST Patient's daughter Mallorie notified of results and provider's instructions. Patient's Daughter verbalizes understanding. Daughter transferred to get ultrasound scheduled. Suzie Baxter RN * Telephone Encounter - Lily Ho LPN - 11/28/2022 2:55 PM EST Message left to return call * Telephone Encounter - Jayashree Remy APRN.CNP - 11/28/2022 1:33 PM EST Please let Montserrat/her daughters know that her chest xray is stable; there are no acute concerns or anything to account for the area of concern in her chest. We need to do an ultrasound to look at thiscloser. Please assist them to schedule this appointment. Jayashree Remy APRN.CNP documented in this encounterKindred [facility]01-18-2023 Instructions* Patient Instructions* Jayashree Remy APRN.CNP - 11/28/2022 12:08 PM EST Have the chest xray completed. If this doesn't show us anything, we'll do an ultrasound of the area. Use heat to the area a few times daily. Ok for Tylenol and/or ibuprofen for pain. documented in this encounterKindred [facility]01-18-2023 History of Present illness Narrative* Jayashree Remy APRN.CNP - 11/28/2022 11:51 AM EST Chief Complaint Patient presents with: Mass: lump on chest x 2 weeks, burning and tender HPI Montserrat Webb is a 82 year old female who presents here today for Above Complaints. Today: About 2 weeks ago daughters noticed a bruise across the upper part of patient's chest. Patient doesnot recall any injury. The bruise has since resolved, but there is an area in the upper middle of her chest that is tender when touched. Has not tried any interventions. Past medical history, appointments, medications, allergies reviewed. Previous Medical History PAST MEDICAL HISTORY Diagnosis Date Anxiety Benign essential hypertension Bunion CHF (congestive heart failure) (HCC) Chronic kidney disease, stage III (moderate) (HCC) Decreased GFR Diverticulosis of colon (without mention of hemorrhage) Dysuria Fatigue Internal hemorrhoids without mention of complication Low back pain Memory loss Mild cognitive impairment Neuralgia and neuritis Nevus, non-neoplastic Osteopenia Overactive bladder PMH - PAST MEDICAL HISTORY OF temporomandibular joint disorders PMH - PAST MEDICAL HISTORY OF 2003 breast cancer - with chemotherapy and right mastectomy Pneumonia, organism unspecified(486) Middle of February Raynaud's syndrome Seborrheic keratosis Secondary cardiomyopathy, unspecified Vitamin D deficiency Previous Surgical History PAST SURGICAL HISTORY Procedure Laterality Date COLONOSCOPY FLX DX W/COLLJ SPEC WHEN PFRMD 10/14/07 HYSTERECTOMY N/A 1983 Partial PAST SURGICAL HISTORY OF 1991 breast bx PAST SURGICAL HISTORY OF 2003 breast cancer right/chemotherapy PAST SURGICAL HISTORY OF May 2010 Port removed Family History FAMILY HISTORY Problem Relation Age of Onset Cancer Mother lynphoma Diabetes Father Cancer Father brain Diabetes Brother Skin Cancer Brother Melanoma No Known Problems Daughter No Known Problems Daughter No Known Problems Son Patient Allergies ALLERGIES No Known Allergies Current Medications Current Outpatient Medications on File Prior to Visit Medication Sig sertraline (ZOLOFT) 50 mg tablet TAKE 1 TABLET BY MOUTH DAILY AT BEDTIME lisinopril (ZESTRIL,PRINIVIL) 30 mg tablet Take 1 tablet by mouth once daily. metoprolol tartrate, short acting, (LOPRESSOR) 50 mg tablet Take 1 tablet by mouth twice daily. cephALEXin (KEFLEX) 250 mg capsule Take 1 capsule by mouth 3 days per week: Saturday, Saturday, Saturday. atorvastatin (LIPITOR) 40 mg tablet Take by mouth. albuterol HFA (VENTOLIN HFA) 90 mcg/actuation inhaler Inhale 2 Puffs as instructed every 4 hours asneeded for Wheezing/Shortness of Breath. ergocalciferol, vitamin D2, (DRISDOL) 50,000 unit capsule Take 1 capsule by mouth once each week. amoxicillin-clavulanic acid (AUGMENTIN) 500-125 mg per tablet Take by mouth. (Patient not taking: Reported on 11/28/2022) No current facility-administered medications on file prior to visit. Social History Social History Tobacco Use Smoking status: Never Smokeless tobacco: Never Vaping Use Vaping Use: Never used Substance Use Topics Alcohol use: No Drug use: No Review of Symptoms REVIEW OF SYSTEMS See HPI, otherwise negative EXAM: BP 118/70 (BP Site: Left Arm, BP Position: Sitting, BP Cuff Size: Regular Adult) Pulse 61 Resp 16 Wt 61.8 kg (136 lb 3.2 oz) SpO2 97% BMI 23.38 kg/m General Appearance: Well appearing, alert, in no acute distress, well-hydrated, well nourished.. Lungs: Lungs clear to auscultation. No wheezing, rhonchi, rales.. Heart: RRR without murmur, gallop, or rubs. No ectopy. Musculoskeletal: palpable area to upper sternum that is about the size of an egg and is tender to palpation, no discoloration or ecchymosis, no protrusion. Is moderately firm. Health Maintenance List DTAP,TDAP,TD(1 - Tdap) Never done SHINGRIX VACCINE(1 of 2) Never done COVID-19 VACCINE(4 - Booster for Pfizer series) due on 03/20/2021 ADVANCE DIRECTIVE DISCUSSION Never done DIABETES SCREEN due on 06/04/2025 BONE DENSITY Completed INFLUENZA Completed PNEUMOCOCCAL: 65+ Completed Data reviewed Previous records, office notes ASSESSMENT/PLAN: 1. Lump in chest - ICD9: 786.6, ICD10: R22.2 (primary diagnosis) Suspect hematoma vs costochondritis. Xray chest/sternum. If xray negative, will do ultrasound of this area. Apply moist head, acetaminophen and/or ibuprofen prn. - XR CHEST 2V FRONTAL/LAT 2. Hypertension, essential - ICD9: 401.9, ICD10: I10 - good control - Continue current medication(s) - Recommended regular aerobic exercise. - Goal of BP <130/80 - LISINOPRIL 30 MG TABLET Jayashree Remy APRN.BALING PRESS OPERATOR documented in this encounterKindred [facility]11-30-2022 Miscellaneous Notes* Telephone Encounter - Faith Poon - 10/10/2022 11:59 AM EST Patient has been identified by name and date of : Yes Patient phones for refill(s): Requested Prescriptions Pending Prescriptions Disp Refills sertraline (ZOLOFT) 50 mg tablet 90 tablet 1 Sig: Take 1 tablet by mouth daily at bedtime. Date of last office visit in primary care: 08/20/22 Last 2 Encounter Wt Readings: Date: Wt: 08/20/2022 61.2 kg (135 lb) 06/04/2022 60.6 kg (133 lb 9.6 oz) Previous labs/tests for medication: Not applicable Please advise. Thank you. Faith Poon documented in this encounterKindred [facility]11-29-2022 Miscellaneous Notes* Telephone Encounter - Althea Espinoza Ma - 10/09/2022 11:17 AM EST Last office visit: 08/20/22 F/u scheduled: 02/18/23 Althea Espinoza Ma documented in this encounterKindred [facility]10-11-2022 History of Present illness Narrative* Lawson Ramos, DO - 08/21/2022 7:43 AM EDT CC: Montserrat Webb is a 82 year old female who presents to the office for follow up HPI: Present with daughter Sendy in office today HTN, overall well controlled, taking medications as prescribed. This is now controlled. Has been drinking 2 large glasses of water daily now or pedialyte. Not drinking any protein shakes. Taking the lisinopril medication without SE Dementia, anxiety seems to be stable/controlled, no mood concerns. No recent falls, normal appetite, eating well. Slowly worsening of symptoms CKD, stage 3, drinking more water regularly. Vitamin D deficiency, taking supplement regularly Low back pain, slightly worse with prolonged standing or walking, no recent falls. Use of heating pad as needed with benefit, also does hot tub soaks with epsom salts. No recent falls. Has been starting to use a cane for balance- seems to have some left leg weakness since her recent UTI in the summer in May. Did do some therapy with benefit but not regularly exercising at home. PAST MEDICAL HISTORY Diagnosis Date Anxiety Benign essential hypertension Bunion CHF (congestive heart failure) (HCC) Chronic kidney disease, stage III (moderate) (HCC) Decreased GFR Diverticulosis of colon (without mention of hemorrhage) Dysuria Fatigue Internal hemorrhoids without mention of complication Low back pain Memory loss Mild cognitive impairment Neuralgia and neuritis Nevus, non-neoplastic Osteopenia Overactive bladder PMH - PAST MEDICAL HISTORY OF temporomandibular joint disorders PMH - PAST MEDICAL HISTORY OF 2003 breast cancer - with chemotherapy and right mastectomy Pneumonia, organism unspecified(486) Middle of February Raynaud's syndrome Seborrheic keratosis Secondary cardiomyopathy, unspecified Vitamin D deficiency PAST SURGICAL HISTORY Procedure Laterality Date COLONOSCOPY FLX DX W/COLLJ SPEC WHEN PFRMD 10/14/07 HYSTERECTOMY N/A 1983 Partial PAST SURGICAL HISTORY OF 1991 breast bx PAST SURGICAL HISTORY OF 2003 breast cancer right/chemotherapy PAST SURGICAL HISTORY OF May 2010 Port removed Current Outpatient Medications Medication Sig cephALEXin (KEFLEX) 250 mg capsule Take 1 capsule by mouth 3 days per week: Saturday, Saturday, Saturday. amoxicillin-clavulanic acid (AUGMENTIN) 500-125 mg per tablet Take by mouth. atorvastatin (LIPITOR) 40 mg tablet Take by mouth. sertraline (ZOLOFT) 50 mg tablet Take 1 tablet by mouth daily at bedtime. albuterol HFA (VENTOLIN HFA) 90 mcg/actuation inhaler Inhale 2 Puffs as instructed every 4 hours asneeded for Wheezing/Shortness of Breath. ergocalciferol, vitamin D2, (DRISDOL) 50,000 unit capsule Take 1 capsule by mouth once each week. lisinopril (ZESTRIL,PRINIVIL) 30 mg tablet Take 1 tablet by mouth once daily. metoprolol tartrate, short acting, (LOPRESSOR) 50 mg tablet Take 1 tablet by mouth twice daily. No current facility-administered medications for this visit. ALLERGIES No Known Allergies Social History Tobacco Use Smoking status: Never Smokeless tobacco: Never Vaping Use Vaping Use: Never used Substance Use Topics Alcohol use: No Drug use: No ROS: See HPI PE: BP 124/72 Pulse 62 Resp 18 Wt 135 lb (61.2kg) Gen: A&OX3, NAD, non-toxic appearing HEENT: PERRLA, EOMs intact b/l, nares without drainage, pharynx without erythema, exudate, lesions,or drainage. Uvula midline. Neck: No LAD, no thyromegaly, no meningismus. CV: RRR, no murmur, normal s1s2 Lungs: CTA b/l, no w/r/r No leg edema, normal peripheral pulses Memory loss with acute/short term memory difficulty Pleasant, well dress Actinic keratosis on chest x 2 ASSESSMENT/PLAN: 1. Hypertension, essential - ICD9: 401.9, ICD10: I10 (primary diagnosis) - good control - Continue current medication(s) - Encouraged dietary sodium restriction/DASH diet - Recommended regular aerobic exercise. - Recommend home blood pressure monitoring, to bring results in on next visit - Goal of BP <130/80 - LISINOPRIL 30 MG TABLET - METOPROLOL TARTRATE 50 MG TABLET 2. Encounter for immunization - ICD9: V03.89, ICD10: Z23 - INFLUENZA SEASONAL QUADRIVALENT HIGH DOSE AGE 65+ 3. Recurrent UTI (urinary tract infection) - ICD9: 599.0, ICD10: N39.0 recurrent - Patient education for prevention given - URINALYSIS, WITH MICROSCOPIC - URINE CULTURE - COMP METABOLIC PANEL - CBC + DIFF 4. Generalized weakness - ICD9: 780.79, ICD10: R53.1 - need for strengthening exercises and continued use of cane 5. Borderline abnormal TFTs - ICD9: 794.5, ICD10: R94.6 - Instructed patient on importance of taking on an empty stomach either first thing in the morning or at bedtime. 6. Vitamin D deficiency - ICD9: 268.9, ICD10: E55.9 Continue supplement 7. Late onset Alzheimer's disease without behavioral disturbance (HCC) - ICD9: 331.0, 294.10, ICD10: G30.1, F02.80 - stable, chronic 8. Dyslipidemia - ICD9: 272.4, ICD10: E78.5 - suboptimal control - Encouraged following a low fat, low cholesterol diet. - Check fasting lipid panel 9. Age-related osteoporosis without current pathological fracture - ICD9: 733.01, ICD10: M81.0 - Reviewed the need for Calcium and Vitamin D supplements and weight bearing exercise as tolerated 10. Actinic keratosis - ICD9: 702.0, ICD10: L57.0 Treated x 2 in office with cryotherapy, tolerated well, no complications. Lawson Ramos DO Return if no improvement. Follow up with Lawson Ramos DO. To ER if develops chest pain, shortness of breath Discussed risks, benefits, alternatives, and potential side effects of medications. Patient/Guardian expressed understanding and agreed with the plan. See patient instructions. Lawson Ramos DO [address] [place] [address] documented in this encounterKind[facility]10-[facility]-2022 Miscellaneous Notes* Telephone Encounter - Holley Wilson Ma - 08/13/2022 3:05 PM EDT Patient daughter informed that it should be okay and to let nurse know when they get called to be roomed. Holley Wilson Ma * Telephone Encounter - Odalis Reeves RN - 08/13/2022 2:19 PM EDT Daughter (Sendy) calls with a question about upcoming appointments for patient and . Patient has an appointment scheduled for Saturday08/20/2022 at 1040 am followed by Armando having an appointment at 1100 am with provider. Daughter calls today to state she is bringing parents in by herself and asking to have them placed in the same room for appointments (she said it has been done previously). Sendy can be reached at [phone] for any questions. Odalis Reeves RN documented in this encounterKindred [facility]08-18-2022 Miscellaneous Notes* Telephone Encounter - Suzie Baxter RN - 06/28/2022 3:41 PM EDT Fernanda called and notified of provider instructions. Verbalizes understand. Will let patient and family know. Suzie Baxter RN * Telephone Encounter - Holley Wilson Ma - 06/28/2022 2:52 PM EDT Vm left with Fernanda to contact office for information regarding patient. Please see note below. Holley Wilson Ma * Telephone Encounter - Jayashree Remy APRN.CNP - 06/28/2022 2:05 PM EDT I would recommend she utilize ibuprofen sparingly and rely more on Tylenol/acetaminophen if necessary. Jayashree Remy APRN.CNP * Telephone Encounter - Suzie Baxter RN - 06/28/2022 1:57 PM EDT Fernanda from [facility] calls and wanted to update patient's medication list and see if it is ok for patient to be taking ibuprofen which is not on medication list from hospital. Patient usually take 1-2 tablets twice a day as needed for back pain. Fernanda checking to see if provider agrees with patient taking. Please review and advise, Suzie Baxter RN documented in this encounterKindred [facility]08-11-2022 Miscellaneous Notes* Telephone Encounter - Kimberlee Kidd LPN - 06/21/2022 9:58 AM EDT Left detailed message for patient daughter. * Telephone Encounter - Jayashree Remy APRN.CNP - 06/21/2022 8:53 AM EDT The following approved medication requests have been transmitted electronically. Requested Prescriptions Signed Prescriptions Disp Refills cephALEXin (KEFLEX) 250 mg capsule 40 capsule 1 Sig: Take 1 capsule by mouth 3 days per week: Saturday, Saturday, Saturday. Authorizing Provider: LAWSON RAMOS Ordering User: JAYASHREE REMY APRN.CNP * Telephone Encounter - Lawson Ramos DO - 06/20/2022 8:17 PM EDT Please clarify with Gloria (or daughter) if this was being recommended to be given for prophylaxis for UTI? Can just consider taking the Keflex 250 mg 3 days a week (Mon, Wed, Fri) if this is for prophylaxis for UTI. Lawson Ramos DO * Telephone Encounter - Lucia Zhang Ma - 06/20/2022 3:25 PM EDT Spoke to [email or web address] who only has capsules in stock. Daughter called all other pharmacies in [place] and tablets are not able to be ordered. Daughter advised father can not see well so suspension would not work. Daughter advised tablets were desired by pcp so they could be broke in half. Are we able to send alternative drug or can we do cephalexin 250 capsule every other day? Lucia Zhang Ma * Telephone Encounter - Lawson Ramos DO - 06/20/2022 2:35 PM EDT Could she try a liquid? Please call daughter Mallorie to see if this would work? Lawson Ramos DO * Telephone Encounter - Josie Navas - 06/19/2022 9:59 AM EDT Cephalexin they can not find this medication in a tablet and that is the only way that they can getthis to work for the patient. Any suggestions on changing? Contact daughter at [phone]. Josie Navas documented in this encounterKindred [facility]08-03-2022 Miscellaneous Notes* Telephone Encounter - Sierra Aldrich APRN.CNP - 06/13/2022 7:23 PM EDT Noted. Thank you, Sierra Aldrich APRN.CNP * Telephone Encounter - Jennifer Silva RN - 06/13/2022 1:37 PM EDT Melida- OT- reporting POC: saw patient 1 x for eval only. Patient has no other needs. Reports patient's BP was 150's/99 when she arrived, re-check was 154/90. Melida reports patient has home BP monitor and will continue to monitor for the next few days. documented in this encounterKindred [facility]08-03-2022 Miscellaneous Notes* Telephone Encounter - Chandni Walker LPN - 06/13/2022 11:34 AM EDT Daughter called and information listed below given. She verbalizes understanding. Chandni Walker LPN * Telephone Encounter - Holley Wilson Ma - 06/13/2022 10:42 AM EDT Vm left with Mallorie to contact office for info. Please see RS note below. Holley Wilson Ma * Telephone Encounter - Jayashree Remy APRN.CNP - 06/13/2022 10:22 AM EDT Yes, let's have her start taking cephalexin 125mg daily. This will be a half tab of a 250mg tab daily. The following approved medication requests have been transmitted electronically. Signed Prescriptions Disp Refills Cephalexin 250 mg tab 15 tablet 5 Sig: Take 0.5 tablets by mouth once daily. Authorizing Provider: JAYASHREE REMY APRN.CNP * Telephone Encounter - Nay Santoyo LPN - 06/13/2022 8:16 AM EDT Patient daughter Mallorie Solis calling since her mother stool tests were all negative, asking if you are going to put her mother on daily prophylactic medication to prevent another UTI? She said was discussed at her appt on 06/04. Patient uses [facility] for her pharmacy. Please advise documented in this encounterKindred [facility]07-29-2022 Miscellaneous Notes* Telephone Encounter - Odalis Reeves RN - 06/08/2022 11:16 AM EDT Anne Marie with [facility] calls to report that she only received every other page of the OV notes and order. Re-faxed pages requested to [phone] per request. Odalis Reeves RN * Telephone Encounter - Holley Wilson Ma - 06/08/2022 9:41 AM EDT OV notes refaxed on 06/08/2022 GERTRUDE Wilson Ma * Telephone Encounter - Jayashree Remy APRN.CNP - 06/08/2022 7:39 AM EDT Signed, in the outbox in our office. Jayashree Remy APRN.CNP * Telephone Encounter - Holley Wilson Ma - 06/07/2022 3:06 PM EDT Office visit note in RS inbox Holley Wilson Ma * Telephone Encounter - Raissa Lane Ma - 06/07/2022 2:05 PM EDT Yes. Just sign and date the OV note and fax back. Raissa Lane Ma * Telephone Encounter - Jayashree Remy APRN.CNP - 06/07/2022 1:37 PM EDT Do I just need to date and sign them? Jayashree Remy APRN.CNP * Telephone Encounter - Jennifer Silva RN - 06/07/2022 9:11 AM EDT Anne Marie- [facility]- reports she cannot accept the ov notes sent to her, because they are not electronically signed/dated, or handwritten signed/dated by provider. Reports if electronically signed- must sayelectronically signed. Please send ov notes to her with signature/date, and also an order for [facility]. documented in this encounterKindred Hospital [facility]07-27-2022 Miscellaneous Notes* Telephone Encounter - Holley Wilson Ma - 06/06/2022 8:55 AM EDT Faxed to [facility] 06/06/2022 GERTRUDE Wilson Ma * Telephone Encounter - Jayashree Remy APRN.CNP - 06/04/2022 6:34 PM EDT Please fax patient's home health order to [facility]. Jayashree Remy APRN.CNP documented in this encounterKindred Hospital [facility]07-25-2022 Instructions* Patient Instructions* Jayashree Remy APRN.CNP - 06/04/2022 12:39 PM EDT Drink 60-80 oz daily. Expect home health to call to schedule. I'll let you know about a daily antibiotic. Complete your stool samples. Complete your labs. Have your chest xray completed. No driving at this time due to weakness. documented in this encounterKindred Hospital [facility]07-25-2022 History of Present illness Narrative* Jayashree Remy APRN.CNP - 06/04/2022 11:51 AM EDT Transitional Care Management Progress Note The patients TCM visit was performed within the 7 days of discharge. Patient's Date of discharge: 05/28/2022 Date of initial coordinator contact after discharge: NA Discharge diagnosis: UTI Medication review completed Yes Jayashree Remy APRN.CNP Provider Documentation: In follow-up of hospitalization, Montserrat Webb is a 81 year old female with the chief complaint of hospital follow up I have reviewed the patient s last hospital course including diagnostic testing performed during this hospitalization, their discharge medications, and my assessment and plan with the patient and anyfamily members present at today s visit. HPI: [facility] ED on 05/25-went by ambulance and was very sick, vomiting. Was admitted for 3 days. BP at one point was systolic 220's. Today: Very weak. Using a walker-which doesn't normally. Last week had yellowish bowel discharge-this has since resolved. PAST MEDICAL HISTORY: Reviewed and updated ALLERGIES: Reviewed and updated MEDICATIONS: Reviewed and updated SOCIAL HISTORY: Reviewed and updated FAMILY HISTORY: Reviewed and updated REVIEW OF SYSTEMS: All other systems reviewed and negative, other than HPI. PHYSICAL EXAMINATION BP 118/74 Pulse 61 Temp (Src) 98.5 (Temporal) Wt 133 lb 9.6 oz (60.6kg) SpO2 93% General appearance: well appearing, alert, in no acute distress and well- hydrated, well nourished, motor and sensory appear to be normal Lungs: clear to auscultation no wheezing or rhonchi Heart: RRR without murmur, gallop, or rubs. No ectopy Abdomen: Not reviewed Extremities: Extremities normal. No deformities, edema, or skin discoloration. Good capillary refill. 1. I have reviewed the patient record including associated test results during the last hospitalization Yes 2. I have reviewed Lab test Yes 3. I have reviewed Radiology test Yes 4. I reviewed assessment/plan with the patient/family member Yes ASSESSMENT/PLAN: 1. Recurrent UTI (urinary tract infection) - ICD9: 599.0, ICD10: N39.0 (primary diagnosis) Consider daily prophylactic medication. - XR CHEST 2V FRONTAL/LAT - CBC - COMP METABOLIC PANEL - [facility] 2. Generalized weakness - ICD9: 780.79, ICD10: R53.1 - XR CHEST 2V FRONTAL/LAT - CBC - COMP METABOLIC PANEL - [facility] 3. Hypertension, essential - ICD9: 401.9, ICD10: I10 - good control - Continue current medication(s) - Recommended regular aerobic exercise. - Goal of BP <130/80 - LISINOPRIL 30 MG TABLET - [facility] 4. Colon wall thickening - ICD9: 569.89, ICD10: K63.[address] completed at [facility]. - C. DIFFICILE PCR - OVA + PARA MICROSCOPIC - ENTERIC BACTERIAL PANEL BY PCR 5. Lung infiltrate - ICD9: 793.19, ICD10: R91.[address] completed at [facility]. - XR CHEST 2V FRONTAL/LAT - CBC - COMP METABOLIC PANEL - [facility] 6. Loose stools - ICD9: 787.7, ICD10: R19.[address] completed at [facility]. - C. DIFFICILE PCR - OVA + PARA MICROSCOPIC - ENTERIC BACTERIAL PANEL BY PCR - [facility] Jayashree Remy APRN.CNP June 04, 2022 12:07 PM documented in this encounterKindred Hospital [facility]07-07-2022 Miscellaneous Notes* Telephone Encounter - Althea Espinoza Ma - 05/17/2022 9:05 AM EDT Pt requesting Rx be sent to [facility], no longer using [facility]. Althea Espinoza Ma * Telephone Encounter - ALEC Goss - 05/07/2022 11:15 AM EDT TC to patient to advise they can have their prescription refills transferred from [facility] pharmacy to [facility]. No answer, VM full unable to leave message. ALEC Goss * Telephone Encounter - Tsering Pope - 05/07/2022 9:23 AM EDT Patient has been identified by name and date of : Yes Pending Prescriptions Disp Refills METOPROLOL TARTRATE 50 MG TABLET 180 tablet 1 Sig: Take 1 tablet by mouth twice daily. MOUNIKA: No RX INSTRUCTIONS: Patient uses [facility] now Patient aware RX will be sent to pharmacy. No need to notify patient. Tsering Pope documented in this encounterKindred [facility]05-06-2022 Miscellaneous Notes* Telephone Encounter - Tsering Pope - 03/16/2022 11:15 AM EDT Patient has been identified by name and date of : Yes Pending Prescriptions Disp Refills SERTRALINE 50 MG TABLET 90 tablet 1 Sig: Take 1 tablet by mouth daily at bedtime. MOUNIKA: No ELE-02/28/22 Labs-08/15/21 NOV-08/20/22 med filled 08/23/21 RX INSTRUCTIONS: Patient aware RX will be sent to pharmacy. No need to notify patient. Tsering Pope documented in this encounterKindred Hospital [facility]04-20-2022 History of Present illness Narrative* Lawson Ramos, - 02/28/2022 12:23 PM EDT CC:Montserrat Webb is a 81 year old female who presents to the office for follow up. HPI: Present with daughter Mallorie in office today HTN, overall well controlled, taking medications as prescribed. This is now controlled. Has been drinking 2 large glasses of water daily now or pedialyte. Not drinking any protein shakes. Dementia, anxiety seems to be stable/controlled, no mood concerns. No recent falls, normal appetite, eating well. Slowly worsening of symptoms CKD, stage 3, drinking more water regularly. Vitamin D deficiency, taking supplement regularly Low back pain, slightly worse with prolonged standing or walking, no recent falls. Use of heating pad as needed with benefit, also does hot tub soaks with epsom salts. PAST MEDICAL HISTORY Diagnosis Date Anxiety Benign essential hypertension Bunion CHF (congestive heart failure) (HCC) Chronic kidney disease, stage III (moderate) (HCC) Decreased GFR Diverticulosis of colon (without mention of hemorrhage) Dysuria Fatigue Internal hemorrhoids without mention of complication Low back pain Memory loss Mild cognitive impairment Neuralgia and neuritis Nevus, non-neoplastic Osteopenia Overactive bladder PMH - PAST MEDICAL HISTORY OF temporomandibular joint disorders PMH - PAST MEDICAL HISTORY OF 2003 breast cancer - with chemotherapy and right mastectomy Pneumonia, organism unspecified(486) Middle of February Raynaud's syndrome Seborrheic keratosis Secondary cardiomyopathy, unspecified Vitamin D deficiency PAST SURGICAL HISTORY Procedure Laterality Date COLONOSCOPY FLX DX W/COLLJ SPEC WHEN PFRMD 10/14/07 HYSTERECTOMY N/A 1983 Partial PAST SURGICAL HISTORY OF 1991 breast bx PAST SURGICAL HISTORY OF 2003 breast cancer right/chemotherapy PAST SURGICAL HISTORY OF May 2010 Port removed Current Outpatient Medications Medication Sig metoprolol tartrate, short acting, (LOPRESSOR) 50 mg tablet Take 1 tablet by mouth twice daily. sertraline (ZOLOFT) 50 mg tablet Take 1 tablet by mouth daily at bedtime. lisinopril (ZESTRIL,PRINIVIL) 30 mg tablet Take 1 tablet by mouth once daily. zoster vaccine, recombinant, adjuvanted, (SHINGRIX, PF,) 50 mcg/0.5 mL injection Inject 0.5 mL intramuscularly now and repeat 2nd dose in 2-6 months oxybutynin XL (DITROPAN XL) 5 mg 24 hr tablet Take 1 tablet by mouth once daily. For overactive bladder sertraline (ZOLOFT) 100 mg tablet Take 1 tablet by mouth daily at bedtime. albuterol HFA (VENTOLIN HFA) 90 mcg/actuation inhaler Inhale 2 Puffs as instructed every 4 hours asneeded for Wheezing/Shortness of Breath. ondansetron orally disintegrating (ZOFRAN ODT) 4 mg disintegrating tablet Take 1 tablet by mouth every 8 hours as needed for Nausea/Vomiting. ergocalciferol, vitamin D2, (DRISDOL) 50,000 unit capsule Take 1 capsule by mouth once each week. No current facility-administered medications for this visit. ALLERGIES No Known Allergies Social History Tobacco Use Smoking status: Never Smoker Smokeless tobacco: Never Used Vaping Use Vaping Use: Never used Substance Use Topics Alcohol use: No Drug use: No ROS: See HPI PE: BP 120/80 Pulse 64 Temp (Src) 97 (Left Tympanic) Resp 20 Wt 136 lb (61.7kg) Gen: A&OX3, NAD, non-toxic appearing HEENT: PERRLA, EOMs intact b/l, nares without drainage, pharynx without erythema, exudate, lesions,or drainage. Uvula midline. Neck: No LAD, no thyromegaly, no meningismus. CV: RRR, no murmur, normal s1s2 Lungs: CTA b/l, no w/r/r No leg edema, normal peripheral pulses Memory loss with acute/short term memory difficulty Pleasant, well dress Actinic keratosis x 1 on left distal nose, actinic keratosis x 1 on right lower cheek ASSESSMENT/PLAN: 1. Hypertension, essential - ICD9: 401.9, ICD10: I10 (primary diagnosis) - good control - Continue current medication(s) - Encouraged dietary sodium restriction/DASH diet - Recommended regular aerobic exercise. - Recommend home blood pressure monitoring, to bring results in on next visit - Goal of BP <130/80 2. Anxiety as acute reaction to exceptional stress - ICD9: 308.0, ICD10: F41.1, F43.0 - stable, continue Zoloft 3. Borderline abnormal TFTs - ICD9: 794.5, ICD10: R94.6 - Instructed patient on importance of taking on an empty stomach either first thing in the morning or at bedtime. 4. Vitamin D deficiency - ICD9: 268.9, ICD10: E55.9 - continue supplement 5. Late onset Alzheimer's disease without behavioral disturbance (HCC) - ICD9: 331.0, 294.10, ICD10: G30.1, F02.80 - overall stable 6. Dyslipidemia - ICD9: 272.4, ICD10: E78.5 - to be determined upon return of lab results - Encouraged following a low fat, low cholesterol diet. - Discussed the benefits of regular aerobic exercise - Check fasting lipid panel 7. Age-related osteoporosis without current pathological fracture - ICD9: 733.01, ICD10: M81.0 - Reviewed the need for Calcium and Vitamin D supplements and weight bearing exercise as tolerated 8. 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 Fatigue, unspecified type - ICD9: 780.79, ICD10: R53.83 Recheck labs - VITAMIN D 25 HYDROXY - VITAMIN B12 BLOOD 10. Actinic keratosis - ICD9: 702.0, ICD10: L57.0 - treated x 2 with cryotherapy, tolerated well, aware of post procedure care Lawson Ramos DO Return if no improvement. Follow up with Lawson Ramos DO. To ER if develops chest pain, shortness of breath Discussed risks, benefits, alternatives, and potential side effects of medications. Patient/Guardian expressed understanding and agreed with the plan. See patient instructions. Lawson Ramos DO [address] [place] [address] documented in this encounterKindred Hospital [facility]03-22-2022 Miscellaneous Notes* Telephone Encounter - Lily Navas - 01/30/2022 8:52 AM EDT Patient has been identified by name and date of : Yes Pending Prescriptions Disp Refills METOPROLOL TARTRATE 50 MG TABLET 180 tablet 1 Sig: Take 1 tablet by mouth twice daily. MOUNIKA: No RX INSTRUCTIONS: Patient aware RX will be sent to pharmacy. No need to notify patient. 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 ER+ (estrogen receptor positive status) 05/02/20 10 08/21/2021 Inflamed seborrheic keratosis 12/14/2008 Viral warts, unspecified 12/14/2008 021 SOLAR LENTIGENES///DYSCHROMIA OTHER 12/14/2008 10/21/2012 ACTINIC DAMAGE///CHR SOLAR SKIN DAMAGE NOS 12/1401/26/2013 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 05/30/2006 08/21/2021 Fitting and adjustment of vascular catheter 01/1108/21/2021 documented as of this encounter (statuses as of 01/31/2022) [facility] History of Past illness Narrative* Problem Noted Date Resolved Date Dementia without behavioral disturbance 12/08/19 20 08/21/2021 Irritated//Inflamed Seborrheic Keratosis 012 08/21/2021 Open wound site: R ear: probable infection 11/1208/21/2021 Surgical wound infection 11/12/2010 021 Pyoderma, unspecified 11/12/2010 08/21/2021 Lipoma: L forearm 06/21/2010 08/21/2021 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 ER+ (estrogen receptor positive status) 05/02/20 10 08/21/2021 Inflamed seborrheic keratosis 12/14/2008 Viral warts, unspecified 12/14/2008 021 SOLAR LENTIGENES///DYSCHROMIA OTHER 12/14/2008 10/21/2012 ACTINIC DAMAGE///CHR SOLAR SKIN DAMAGE NOS 12/1401/26/2013 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 05/30/2006 08/21/2021 Fitting and adjustment of vascular catheter 01/1108/21/2021 documented as of this encounter (statuses as of 02/28/2022) [facility] History of Past illness Narrative* Problem Noted Date Resolved Date Dementia without behavioral disturbance 12/08/1908/21/2021 Irritated//Inflamed Seborrheic Keratosis 012 08/21/2021 Open wound site: R ear: probable infection 11/1208/21/2021 Surgical wound infection 11/12/2010 021 Pyoderma, unspecified 11/12/2010 08/21/2021 Lipoma: L forearm 06/21/2010 08/21/2021 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 ER+ (estrogen receptor positive status) 05/02/20 10 08/21/2021 Inflamed seborrheic keratosis 12/14/2008 Viral warts, unspecified 12/14/2008 021 SOLAR LENTIGENES///DYSCHROMIA OTHER 12/14/2008 10/21/2012 ACTINIC DAMAGE///CHR SOLAR SKIN DAMAGE NOS 12/1401/26/2013 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 05/30/2006 08/21/2021 Fitting and adjustment of vascular catheter 01/1108/21/2021 documented as of this encounter (statuses as of 03/16/2022) [facility] of Past illness Narrative* Problem Noted Date Resolved Date Dementia without behavioral disturbance 12/08/1908/21/2021 Irritated//Inflamed Seborrheic Keratosis 012 08/21/2021 Open wound site: R ear: probable infection 11/1208/21/2021 Surgical wound infection 11/12/2010 021 Pyoderma, unspecified 11/12/2010 08/21/2021 Lipoma: L forearm 06/21/2010 08/21/2021 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 ER+ (estrogen receptor positive status) 05/02/20 10 08/21/2021 Inflamed seborrheic keratosis 12/14/2008 Viral warts, unspecified 12/14/2008 021 SOLAR LENTIGENES///DYSCHROMIA OTHER 12/14/2008 10/21/2012 ACTINIC DAMAGE///CHR SOLAR SKIN DAMAGE NOS 12/1401/26/2013 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 05/30/2006 08/21/2021 Fitting and adjustment of vascular catheter 01/1108/21/2021 documented as of this encounter (statuses as of 05/17/2022) [facility] of Past illness Narrative* Problem Noted Date Resolved Date Dementia without behavioral disturbance 12/08/19 20 08/21/2021 Irritated//Inflamed Seborrheic Keratosis 012 08/21/2021 Open wound site: R ear: probable infection 11/1208/21/2021 Surgical wound infection 11/12/2010 021 Pyoderma, unspecified 11/12/2010 08/21/2021 Lipoma: L forearm 06/21/2010 08/21/2021 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 ER+ (estrogen receptor positive status) 05/02/20 10 08/21/2021 Inflamed seborrheic keratosis 12/14/2008 Viral warts, unspecified 12/14/2008 021 SOLAR LENTIGENES///DYSCHROMIA OTHER 12/14/2008 10/21/2012 ACTINIC DAMAGE///CHR SOLAR SKIN DAMAGE NOS 12/1401/26/2013 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 05/30/2006 08/21/2021 Fitting and adjustment of vascular catheter 01/1108/21/2021 documented as of this encounter (statuses as of 06/06/2022) [facility]-2020 History of Past illness Narrative* Problem Noted Date Resolved Date Dementia without behavioral disturbance 12/08/19 20 08/21/2021 Irritated//Inflamed Seborrheic Keratosis 012 08/21/2021 Open wound site: R ear: probable infection 11/1208/21/2021 Surgical wound infection 11/12/2010 021 Pyoderma, unspecified 11/12/2010 08/21/2021 Lipoma: L forearm 06/21/2010 08/21/2021 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 ER+ (estrogen receptor positive status) 05/02/20 10 08/21/2021 Inflamed seborrheic keratosis 12/14/2008 Viral warts, unspecified 12/14/2008 021 SOLAR LENTIGENES///DYSCHROMIA OTHER 12/14/2008 10/21/2012 ACTINIC DAMAGE///CHR SOLAR SKIN DAMAGE NOS 12/1401/26/2013 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 05/30/2006 08/21/2021 Fitting and adjustment of vascular catheter 01/1108/21/2021 documented as of this encounter (statuses as of 06/06/2022) [facility]2020 History of Past illness Narrative* Problem Noted Date Resolved Date Dementia without behavioral disturbance 12/08/19 20 08/21/2021 Irritated//Inflamed Seborrheic Keratosis 012 08/21/2021 Open wound site: R ear: probable infection 11/1208/21/2021 Surgical wound infection 11/12/2010 021 Pyoderma, unspecified 11/12/2010 08/21/2021 Lipoma: L forearm 06/21/2010 08/21/2021 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 ER+ (estrogen receptor positive status) 05/02/20 10 08/21/2021 Inflamed seborrheic keratosis 12/14/2008 Viral warts, unspecified 12/14/2008 021 SOLAR LENTIGENES///DYSCHROMIA OTHER 12/14/2008 10/21/2012 ACTINIC DAMAGE///CHR SOLAR SKIN DAMAGE NOS 12/1401/26/2013 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 05/30/2006 08/21/2021 Fitting and adjustment of vascular catheter 01/1108/21/2021 documented as of this encounter (statuses as of 06/08/2022) [facility] History of Past illness Narrative* Problem Noted Date Resolved Date Dementia without behavioral disturbance 12/08/1908/21/2021 Irritated//Inflamed Seborrheic Keratosis 012 08/21/2021 Open wound site: R ear: probable infection 11/1208/21/2021 Surgical wound infection 11/12/2010 021 Pyoderma, unspecified 11/12/2010 08/21/2021 Lipoma: L forearm 06/21/2010 08/21/2021 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 ER+ (estrogen receptor positive status) 05/02/20 10 08/21/2021 Inflamed seborrheic keratosis 12/14/2008 Viral warts, unspecified 12/14/2008 021 SOLAR LENTIGENES///DYSCHROMIA OTHER 12/14/2008 10/21/2012 ACTINIC DAMAGE///CHR SOLAR SKIN DAMAGE NOS 12/1401/26/2013 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 05/30/2006 08/21/2021 Fitting and adjustment of vascular catheter 01/1108/21/2021 documented as of this encounter (statuses as of 06/13/2022) [facility] History of Past illness Narrative* Problem Noted Date Resolved Date Dementia without behavioral disturbance 12/08/1908/21/2021 Irritated//Inflamed Seborrheic Keratosis 012 08/21/2021 Open wound site: R ear: probable infection 11/1208/21/2021 Surgical wound infection 11/12/2010 021 Pyoderma, unspecified 11/12/2010 08/21/2021 Lipoma: L forearm 06/21/2010 08/21/2021 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 ER+ (estrogen receptor positive status) 05/02/20 10 08/21/2021 Inflamed seborrheic keratosis 12/14/2008 Viral warts, unspecified 12/14/2008 021 SOLAR LENTIGENES///DYSCHROMIA OTHER 12/14/2008 10/21/2012 ACTINIC DAMAGE///CHR SOLAR SKIN DAMAGE NOS 12/1401/26/2013 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 05/30/2006 08/21/2021 Fitting and adjustment of vascular catheter 01/1108/21/2021 documented as of this encounter (statuses as of 06/13/2022) [facility] History of Past illness Narrative* Problem Noted Date Resolved Date Dementia without behavioral disturbance 12/08/19 20 08/21/2021 Irritated//Inflamed Seborrheic Keratosis 012 08/21/2021 Open wound site: R ear: probable infection 11/1208/21/2021 Surgical wound infection 11/12/2010 021 Pyoderma, unspecified 11/12/2010 08/21/2021 Lipoma: L forearm 06/21/2010 08/21/2021 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 ER+ (estrogen receptor positive status) 05/02/20 10 08/21/2021 Inflamed seborrheic keratosis 12/14/2008 Viral warts, unspecified 12/14/2008 021 SOLAR LENTIGENES///DYSCHROMIA OTHER 12/14/2008 10/21/2012 ACTINIC DAMAGE///CHR SOLAR SKIN DAMAGE NOS 12/1401/26/2013 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 05/30/2006 08/21/2021 Fitting and adjustment of vascular catheter 01/1108/21/2021 documented as of this encounter (statuses as of 06/21/2022) [facility] History of Past illness Narrative* Problem Noted Date Resolved Date Dementia without behavioral disturbance 12/08/19 20 08/21/2021 Irritated//Inflamed Seborrheic Keratosis 012 08/21/2021 Open wound site: R ear: probable infection 11/1208/21/2021 Surgical wound infection 11/12/2010 021 Pyoderma, unspecified 11/12/2010 08/21/2021 Lipoma: L forearm 06/21/2010 08/21/2021 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 ER+ (estrogen receptor positive status) 05/02/20 10 08/21/2021 Inflamed seborrheic keratosis 12/14/2008 Viral warts, unspecified 12/14/2008 021 SOLAR LENTIGENES///DYSCHROMIA OTHER 12/14/2008 10/21/2012 ACTINIC DAMAGE///CHR SOLAR SKIN DAMAGE NOS 12/1401/26/2013 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 05/30/2006 08/21/2021 Fitting and adjustment of vascular catheter 01/1108/21/2021 documented as of this encounter (statuses as of 06/28/2022) [facility]2020 History of Past illness Narrative* Problem Noted Date Resolved Date Dementia without behavioral disturbance 12/08/19 20 08/21/2021 Irritated//Inflamed Seborrheic Keratosis 012 08/21/2021 Open wound site: R ear: probable infection 11/1208/21/2021 Surgical wound infection 11/12/2010 021 Pyoderma, unspecified 11/12/2010 08/21/2021 Lipoma: L forearm 06/21/2010 08/21/2021 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 ER+ (estrogen receptor positive status) 05/02/20 10 08/21/2021 Inflamed seborrheic keratosis 12/14/2008 Viral warts, unspecified 12/14/2008 021 SOLAR LENTIGENES///DYSCHROMIA OTHER 12/14/2008 10/21/2012 ACTINIC DAMAGE///CHR SOLAR SKIN DAMAGE NOS 12/1401/26/2013 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 05/30/2006 08/21/2021 Fitting and adjustment of vascular catheter 01/1108/21/2021 documented as of this encounter (statuses as of 08/13/2022) [facility]2020 History of Past illness Narrative* Problem Noted Date Resolved Date Dementia without behavioral disturbance 12/08/1908/21/2021 Irritated//Inflamed Seborrheic Keratosis 012 08/21/2021 Open wound site: R ear: probable infection 11/1208/21/2021 Surgical wound infection 11/12/2010 021 Pyoderma, unspecified 11/12/2010 08/21/2021 Lipoma: L forearm 06/21/2010 08/21/2021 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 ER+ (estrogen receptor positive status) 05/02/20 10 08/21/2021 Inflamed seborrheic keratosis 12/14/2008 Viral warts, unspecified 12/14/2008 021 SOLAR LENTIGENES///DYSCHROMIA OTHER 12/14/2008 10/21/2012 ACTINIC DAMAGE///CHR SOLAR SKIN DAMAGE NOS 12/1401/26/2013 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 05/30/2006 08/21/2021 Fitting and adjustment of vascular catheter 01/1108/21/2021 documented as of this encounter (statuses as of 08/21/2022) [facility] History of Past illness Narrative* Problem Noted Date Resolved Date Dementia without behavioral disturbance 12/08/1908/21/2021 Irritated//Inflamed Seborrheic Keratosis 012 08/21/2021 Open wound site: R ear: probable infection 11/1208/21/2021 Surgical wound infection 11/12/2010 021 Pyoderma, unspecified 11/12/2010 08/21/2021 Lipoma: L forearm 06/21/2010 08/21/2021 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 ER+ (estrogen receptor positive status) 05/02/20 10 08/21/2021 Inflamed seborrheic keratosis 12/14/2008 Viral warts, unspecified 12/14/2008 021 SOLAR LENTIGENES///DYSCHROMIA OTHER 12/14/2008 10/21/2012 ACTINIC DAMAGE///CHR SOLAR SKIN DAMAGE NOS 12/1401/26/2013 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 05/30/2006 08/21/2021 Fitting and adjustment of vascular catheter 01/1108/21/2021 documented as of this encounter (statuses as of 10/10/2022) [facility]2020 History of Past illness Narrative* Problem Noted Date Resolved Date Dementia without behavioral disturbance 12/08/19 20 08/21/2021 Irritated//Inflamed Seborrheic Keratosis 012 08/21/2021 Open wound site: R ear: probable infection 11/1208/21/2021 Surgical wound infection 11/12/2010 021 Pyoderma, unspecified 11/12/2010 08/21/2021 Lipoma: L forearm 06/21/2010 08/21/2021 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 ER+ (estrogen receptor positive status) 05/02/20 10 08/21/2021 Inflamed seborrheic keratosis 12/14/2008 Viral warts, unspecified 12/14/2008 021 SOLAR LENTIGENES///DYSCHROMIA OTHER 12/14/2008 10/21/2012 ACTINIC DAMAGE///CHR SOLAR SKIN DAMAGE NOS 12/1401/26/2013 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 05/30/2006 08/21/2021 Fitting and adjustment of vascular catheter 01/1108/21/2021 documented as of this encounter (statuses as of 10/22/2022) [facility]2020 History of Past illness Narrative* Problem Noted Date Resolved Date Dementia without behavioral disturbance 12/08/19 20 08/21/2021 Irritated//Inflamed Seborrheic Keratosis 012 08/21/2021 Open wound site: R ear: probable infection 11/1208/21/2021 Surgical wound infection 11/12/2010 021 Pyoderma, unspecified 11/12/2010 08/21/2021 Lipoma: L forearm 06/21/2010 08/21/2021 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 ER+ (estrogen receptor positive status) 05/02/20 10 08/21/2021 Inflamed seborrheic keratosis 12/14/2008 Viral warts, unspecified 12/14/2008 021 SOLAR LENTIGENES///DYSCHROMIA OTHER 12/14/2008 10/21/2012 ACTINIC DAMAGE///CHR SOLAR SKIN DAMAGE NOS 12/1401/26/2013 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 05/30/2006 08/21/2021 Fitting and adjustment of vascular catheter 01/1108/21/2021 documented as of this encounter (statuses as of 11/28/2022) [facility]2020 History of Past illness Narrative* Problem Noted Date Resolved Date Dementia without behavioral disturbance 12/08/19 20 08/21/2021 Irritated//Inflamed Seborrheic Keratosis 012 08/21/2021 Open wound site: R ear: probable infection 11/1208/21/2021 Surgical wound infection 11/12/2010 021 Pyoderma, unspecified 11/12/2010 08/21/2021 Lipoma: L forearm 06/21/2010 08/21/2021 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 ER+ (estrogen receptor positive status) 05/02/20 10 08/21/2021 Inflamed seborrheic keratosis 12/14/2008 Viral warts, unspecified 12/14/2008 021 SOLAR LENTIGENES///DYSCHROMIA OTHER 12/14/2008 10/21/2012 ACTINIC DAMAGE///CHR SOLAR SKIN DAMAGE NOS 12/1401/26/2013 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 05/30/2006 08/21/2021 Fitting and adjustment of vascular catheter 01/1108/21/2021 documented as of this encounter (statuses as of 11/28/2022) [facility]2020 History of Past illness Narrative* Problem Noted Date Resolved Date Dementia without behavioral disturbance 12/08/1908/21/2021 Irritated//Inflamed Seborrheic Keratosis 012 08/21/2021 Open wound site: R ear: probable infection 11/1208/21/2021 Surgical wound infection 11/12/2010 021 Pyoderma, unspecified 11/12/2010 08/21/2021 Lipoma: L forearm 06/21/2010 08/21/2021 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 ER+ (estrogen receptor positive status) 05/02/20 10 08/21/2021 Inflamed seborrheic keratosis 12/14/2008 Viral warts, unspecified 12/14/2008 021 SOLAR LENTIGENES///DYSCHROMIA OTHER 12/14/2008 10/21/2012 ACTINIC DAMAGE///CHR SOLAR SKIN DAMAGE NOS 12/1401/26/2013 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 05/30/2006 08/21/2021 Fitting and adjustment of vascular catheter 01/1108/21/2021 documented as of this encounter (statuses as of 12/01/2022) [facility]2020 History of Past illness Narrative* Problem Noted Date Resolved Date Dementia without behavioral disturbance 12/08/1908/21/2021 Irritated//Inflamed Seborrheic Keratosis 012 08/21/2021 Open wound site: R ear: probable infection 11/1208/21/2021 Surgical wound infection 11/12/2010 021 Pyoderma, unspecified 11/12/2010 08/21/2021 Lipoma: L forearm 06/21/2010 08/21/2021 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 ER+ (estrogen receptor positive status) 05/02/20 10 08/21/2021 Inflamed seborrheic keratosis 12/14/2008 Viral warts, unspecified 12/14/2008 021 SOLAR LENTIGENES///DYSCHROMIA OTHER 12/14/2008 10/21/2012 ACTINIC DAMAGE///CHR SOLAR SKIN DAMAGE NOS 12/1401/26/2013 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 05/30/2006 08/21/2021 Fitting and adjustment of vascular catheter 01/1108/21/2021 documented as of this encounter (statuses as of 12/13/2022) [facility]2020 History of Past illness Narrative* Problem Noted Date Resolved Date Dementia without behavioral disturbance 12/08/19 20 08/21/2021 Irritated//Inflamed Seborrheic Keratosis 012 08/21/2021 Open wound site: R ear: probable infection 11/1208/21/2021 Surgical wound infection 11/12/2010 021 Pyoderma, unspecified 11/12/2010 08/21/2021 Lipoma: L forearm 06/21/2010 08/21/2021 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 ER+ (estrogen receptor positive status) 05/02/20 10 08/21/2021 Inflamed seborrheic keratosis 12/14/2008 Viral warts, unspecified 12/14/2008 021 SOLAR LENTIGENES///DYSCHROMIA OTHER 12/14/2008 10/21/2012 ACTINIC DAMAGE///CHR SOLAR SKIN DAMAGE NOS 12/1401/26/2013 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 05/30/2006 08/21/2021 Fitting and adjustment of vascular catheter 01/1108/21/2021 documented as of this encounter (statuses as of 02/20/2023) [facility]2020 History of Past illness Narrative* Problem Noted Date Resolved Date Dementia without behavioral disturbance 12/08/19 20 08/21/2021 Irritated//Inflamed Seborrheic Keratosis 012 08/21/2021 Open wound site: R ear: probable infection 11/1208/21/2021 Surgical wound infection 11/12/2010 021 Pyoderma, unspecified 11/12/2010 08/21/2021 Lipoma: L forearm 06/21/2010 08/21/2021 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 ER+ (estrogen receptor positive status) 05/02/20 10 08/21/2021 Inflamed seborrheic keratosis 12/14/2008 Viral warts, unspecified 12/14/2008 021 SOLAR LENTIGENES///DYSCHROMIA OTHER 12/14/2008 10/21/2012 ACTINIC DAMAGE///CHR SOLAR SKIN DAMAGE NOS 12/1401/26/2013 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 05/30/2006 08/21/2021 Fitting and adjustment of vascular catheter 01/1108/21/2021 documented as of this encounter (statuses as of 02/27/2023) [facility]2020 History of Past illness Narrative* Problem Noted Date Resolved Date Dementia without behavioral disturbance 12/08/19 20 08/21/2021 Irritated//Inflamed Seborrheic Keratosis 012 08/21/2021 Open wound site: R ear: probable infection 11/1208/21/2021 Surgical wound infection 11/12/2010 021 Pyoderma, unspecified 11/12/2010 08/21/2021 Lipoma: L forearm 06/21/2010 08/21/2021 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 ER+ (estrogen receptor positive status) 05/02/20 10 08/21/2021 Inflamed seborrheic keratosis 12/14/2008 Viral warts, unspecified 12/14/2008 021 SOLAR LENTIGENES///DYSCHROMIA OTHER 12/14/2008 10/21/2012 ACTINIC DAMAGE///CHR SOLAR SKIN DAMAGE NOS 12/1401/26/2013 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 05/30/2006 08/21/2021 Fitting and adjustment of vascular catheter 01/1108/21/2021 documented as of this encounter (statuses as of 04/25/2023) [facility] History of Past illness Narrative* Problem Noted Date Diagnosed Date Resolved Date Dementia without behavioral disturbance 12/08/2019 08/21/2021 Irritated//Inflamed Seborrheic Keratosis 10/21/2012 08/21/2021 Open wound site: R ear: probable infection 11/12/2010 08/21/2021 Surgical wound infection 11/12/201009/2021 Pyoderma, unspecified 11/12/20102020 Lipoma: L forearm 06/21/2010 08/21/2021 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08/21 ER+ (estrogen receptor positive status) 05/02/2010 08/21/2021 Inflamed seborrheic keratosis 12/14/2008 10/21/2012 Viral warts, unspecified 12/14/200809/2021 SOLAR LENTIGENES///DYSCHROMIA OTHER 12/14/2008 10/21/2012 ACTINIC DAMAGE///CHR SOLAR SKIN DAMAGE NOS 12/14/2008 01/26/2013 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 05/30/2006 08/21/2021 Fitting and adjustment of vascular catheter 02/08/2006 08/21/2021 documented as of this encounter (statuses as of 08/31/2023) [facility] History of Past illness Narrative* Problem Noted Date Diagnosed Date Resolved Date Dementia without behavioral disturbance 12/08/2019 08/21/2021 Irritated//Inflamed Seborrheic Keratosis 10/21/2012 08/21/2021 Open wound site: R ear: probable infection 11/12/2010 08/21/2021 Surgical wound infection 11/12/201009/2021 Pyoderma, unspecified 11/12/20102020 Lipoma: L forearm 06/21/2010 08/21/2021 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08/21 ER+ (estrogen receptor positive status) 05/02/2010 08/21/2021 Inflamed seborrheic keratosis 12/14/2008 10/21/2012 Viral warts, unspecified 12/14/200809/2021 SOLAR LENTIGENES///DYSCHROMIA OTHER 12/14/2008 10/21/2012 ACTINIC DAMAGE///CHR SOLAR SKIN DAMAGE NOS 12/14/2008 01/26/2013 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 05/30/2006 08/21/2021 Fitting and adjustment of vascular catheter 02/08/2006 08/21/2021 documented as of this encounter (statuses as of 01/30/2024) [facility] History of Past illness Narrative* Problem Noted Date Diagnosed Date Resolved Date Dementia without behavioral disturbance 12/08/2019 08/21/2021 Irritated//Inflamed Seborrheic Keratosis 10/21/2012 08/21/2021 Open wound site: R ear: probable infection 11/12/2010 08/21/2021 Surgical wound infection 11/12/201009/2021 Pyoderma, unspecified 11/12/20102020 Lipoma: L forearm 06/21/2010 08/21/2021 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08/21 ER+ (estrogen receptor positive status) 05/02/2010 08/21/2021 Inflamed seborrheic keratosis 12/14/2008 10/21/2012 Viral warts, unspecified 12/14/200809/2021 SOLAR LENTIGENES///DYSCHROMIA OTHER 12/14/2008 10/21/2012 ACTINIC DAMAGE///CHR SOLAR SKIN DAMAGE NOS 12/14/2008 01/26/2013 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 05/30/2006 08/21/2021 Fitting and adjustment of vascular catheter 02/08/2006 08/21/2021 documented as of this encounter (statuses as of 02/27/2024) [facility] History of Past illness Narrative* Problem Noted Date Diagnosed Date Resolved Date Dementia without behavioral disturbance 12/08/2019 08/21/2021 Irritated//Inflamed Seborrheic Keratosis 10/21/2012 08/21/2021 Open wound site: R ear: probable infection 11/12/2010 08/21/2021 Surgical wound infection 11/12/201009/2021 Pyoderma, unspecified 11/12/20102020 Lipoma: L forearm 06/21/2010 08/21/2021 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08/21 ER+ (estrogen receptor positive status) 05/02/2010 08/21/2021 Inflamed seborrheic keratosis 12/14/2008 10/21/2012 Viral warts, unspecified 12/14/200809/2021 SOLAR LENTIGENES///DYSCHROMIA OTHER 12/14/2008 10/21/2012 ACTINIC DAMAGE///CHR SOLAR SKIN DAMAGE NOS 12/14/2008 01/26/2013 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 05/30/2006 08/21/2021 Fitting and adjustment of vascular catheter 02/08/2006 08/21/2021 documented as of this encounter (statuses as of 02/27/2024) [facility] History of Past illness Narrative* Problem Noted Date Diagnosed Date Resolved Date Dementia without behavioral disturbance 12/08/2019 08/21/2021 Irritated//Inflamed Seborrheic Keratosis 10/21/2012 08/21/2021 Open wound site: R ear: probable infection 11/12/2010 08/21/2021 Surgical wound infection 11/12/201009/2021 Pyoderma, unspecified 11/12/20102020 Lipoma: L forearm 06/21/2010 08/21/2021 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08/21 ER+ (estrogen receptor positive status) 05/02/2010 08/21/2021 Inflamed seborrheic keratosis 12/14/2008 10/21/2012 Viral warts, unspecified 12/14/200809/2021 SOLAR LENTIGENES///DYSCHROMIA OTHER 12/14/2008 10/21/2012 ACTINIC DAMAGE///CHR SOLAR SKIN DAMAGE NOS 12/14/2008 01/26/2013 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 05/30/2006 08/21/2021 Fitting and adjustment of vascular catheter 02/08/2006 08/21/2021 documented as of this encounter (statuses as of 02/28/2024) [facility] Diagnosis Hypertension, essential Unspecified essential hypertension [facility] Diagnosis Hypertension, essential- Primary Unspecified essential hypertension Anxiety as acute reaction to exceptional stress Predominant disturbance of emotions Borderline abnormal TFTs Nonspecific abnormal results of thyroid function study Vitamin D deficiency Unspecified vitamin D deficiency Late onset Alzheimer's disease without behavioral disturbance (HCC) Dyslipidemia Other and unspecified hyperlipidemia Age-related osteoporosis without current pathological fracture Senile osteoporosis Cerebral microvascular disease Cerebrovascular disease, unspecified Fatigue, unspecified type Actinic keratosis [facility] Diagnosis Anxiety as acute reaction to exceptional stress Predominant disturbance of emotions [facility] Diagnosis Onset Date Resolution Status Generalized weakness acute Ischemic colitis acute Nausea and vomiting acute Near syncope acute Stenosis of right carotid artery acute [facility] Work Phone: Evaluation note* Diagnosis Recurrent UTI (urinary tract infection)- Primary Urinary tract infection, site not specified Generalized weakness Other malaise and fatigue Hypertension, essential Unspecified essential hypertension Colon wall thickening Other specified disorder of intestines Lung infiltrate Other nonspecific abnormal finding of lung field Loose stools Abnormal feces [facility] Diagnosis Recurrent UTI- Primary Urinary tract infection, site not specified [facility] Diagnosis Recurrent UTI (urinary tract infection)- Primary Urinary tract infection, site not specified Prophylactic antibiotic Encounter for long-term (current) use of antibiotics [facility] Diagnosis Hypertension, essential- Primary Unspecified essential hypertension Encounter for immunization Need for other specified prophylactic vaccination against single bacterial disease Recurrent UTI (urinary tract infection) Urinary tract infection, site not specified Generalized weakness Other malaise and fatigue Borderline abnormal TFTs Nonspecific abnormal results of thyroid function study Vitamin D deficiency Unspecified vitamin D deficiency Late onset Alzheimer's disease without behavioral disturbance (HCC) Dyslipidemia Other and unspecified hyperlipidemia Age-related osteoporosis without current pathological fracture Senile osteoporosis Actinic keratosis [facility] Diagnosis Anxiety as acute reaction to exceptional stress Predominant disturbance of emotions [facility]* Diagnosis Lump in chest- Primary Swelling, mass, or lump in chest Hypertension, essential Unspecified essential hypertension [facility]* Diagnosis Lump in chest- Primary Swelling, mass, or lump in chest [facility] Diagnosis Lump in chest Swelling, mass, or lump in chest [facility]* Diagnosis Balance disorder- Primary Other symptoms involving nervous and musculoskeletal systems [facility]* Diagnosis Hypertension, essential Unspecified essential hypertension [facility] Diagnosis Anxiety as acute reaction to exceptional stress Predominant disturbance of emotions [facility]* Diagnosis Hypertension, essential- Primary Unspecified essential hypertension Anxiety as acute reaction to exceptional stress Predominant disturbance of emotions Need for influenza vaccination Need for prophylactic vaccination and inoculation against influenza Vitamin B12 deficiency Other B-complex deficiencies Other cardiomyopathies (HCC) Chronic kidney disease, stage 3a (HCC) Late onset Alzheimer's disease without behavioral disturbance (HCC) Vitamin D deficiency Unspecified vitamin D deficiency Dyslipidemia Other and unspecified hyperlipidemia Hyperglycemia Other abnormal glucose Age-related osteoporosis without current pathological fracture Senile osteoporosis Fatigue, unspecified type [facility]* Diagnosis Onset Date Resolution Status Bradycardia, sinus acute History of breast cancer acu te Syncope acute [facility] Work Phone: Evaluation note* Diagnosis Chronic midline low back pain without sciatica- Primary Recurrent UTI (urinary tract infection) Urinary tract infection, site not specified Prophylactic antibiotic Encounter for long-term (current) use of antibiotics Osteoarthritis of spine with radiculopathy, 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, thoracic region Late onset Alzheimer's disease without behavioral disturbance (HCC) Ischemic colitis (HCC) Unspecified vascular insufficiency of intestine Other cardiomyopathies (HCC) Malignant neoplasm of female breast, unspecified estrogen receptor status, unspecified laterality, unspecified site of breast (HCC) Chronic kidney disease, stage 3a (HCC) [facility]* Diagnosis Onset Date Resolution Status Bradycardia, sinus resolved Syncope resolved [facility] Work Phone: Evaluation note* Diagnosis Osteoarthritis of spine with radiculopathy, 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, thoracic region Chronic midline low back pain without sciatica [facility] Diagnosis Vasovagal syncope- Primary Syncope and collapse Generalized weakness Other malaise and fatigue Chronic kidney disease, stage 3a (HCC) Late onset Alzheimer's disease without behavioral disturbance (HCC) [facility] Diagnosis Vitamin B12 deficiency- Primary Other B-complex deficiencies [facility] Diagnosis Chronic bilateral low back pain without sciatica [facility]* Diagnosis Lump in chest Swelling, mass, or lump in chest [facility] Diagnosis Lung infiltrate Other nonspecific abnormal finding of lung field Recurrent UTI (urinary tract infection) Urinary tract infection, site not specified Generalized weakness Other malaise and fatigue [facility] Diagnosis Anxiety as acute reaction to exceptional stress Predominant disturbance of emotions [facility]* Diagnosis Recurrent UTI (urinary tract infection) Urinary tract infection, site not specified Prophylactic antibiotic Encounter for long-term (current) use of antibiotics [facility]* Diagnosis Stage 3a chronic kidney disease (HCC)- Primary Need for influenza vaccination Need for prophylactic vaccination and inoculation against influenza Vitamin B12 deficiency Other B-complex deficiencies Recurrent UTI (urinary tract infection) Urinary tract infection, site not specified Chronic kidney disease, stage 3a (HCC) Borderline abnormal TFTs Nonspecific abnormal results of thyroid function study Vitamin D deficiency Unspecified vitamin D deficiency Hyperglycemia Other abnormal glucose Dyslipidemia Other and unspecified hyperlipidemia Late onset Alzheimer's disease without behavioral disturbance (HCC) Osteoarthritis of spine with radiculopathy, 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, thoracic region Chronic midline low back pain without sciatica [facility]* Diagnosis Generalized weakness- Primary Other malaise and fatigue Fatigue, unspecified type Nonproductive cough Cough Oropharyngeal dysphagia Dysphagia, oropharyngeal phase Poor appetite Anorexia Hypertension, essential Unspecified essential hypertension History of recurrent UTIs Personal history of urinary (tract) infection Weight loss Loss of weight [facility]* Diagnosis Generalized weakness Other malaise and fatigue Fatigue, unspecified type Nonproductive cough Cough Oropharyngeal dysphagia Dysphagia, oropharyngeal phase Poor appetite Anorexia Weight loss Loss of weight [facility]* Diagnosis Recurrent UTI (urinary tract infection)- Primary Urinary tract infection, site not specified documented in this encounter [facility] note* Diagnosis Fatigue, unspecified type- Primary Anxiety as acute reaction to exceptional stress Predominant disturbance of emotions Moderate recurrent major depression (HCC) Major depressive disorder, recurrent episode, moderate Late onset Alzheimer's disease without behavioral disturbance (HCC) documented in this encounter [facility] for referral (narrative)* Diagnostic Procedure Only (Routine) - Authorized Specialty Diagnoses / Procedures Referred By Tom caldwell Referred To Contact US IMAGING Diagnoses Lump in chest Procedures US CHEST WALL/SOFT TISSUE US CHEST REAL TIME W/IMAGE DOCUMENTATION Jayashree Remy APRN.CNP [address] [place] [address] Us Imaging Referral ID Status Reason Start Date Expiration Date Visits Requested Visits Authorized [id number] Authorized Auto-Generat ed Referral 11/28/2022 12/28/2023 1 1 [facility] for referral (narrative)* Diagnostic Procedure Only (Routine) - Closed Specialty Diagnoses / Procedures Referred By Tom caldwell Referred To Contact US IMAGING Diagnoses Lump in chest Procedures US CHEST WALL/SOFT TISSUE US CHEST REAL TIME W/IMAGE DOCUMENTATION Jayashree Remy APRN.CNP [address] [place] [address] Us Imaging Referral ID Status Reason Start Date Expiration Date V isits Requested Visits Authorized [id number] Closed Auto-Generate d Referral 11/28/2022 12/28/2023 1 1 [facility] for referral (narrative)* Diagnostic Procedure Only (Urgent) - Closed Specialty Diagnoses / Procedures Referred By Contac t Referred To Contact XR IMAGING Diagnoses Chronic bilateral low back pain without sciatica Procedures XR THORACIC GENERAL 3V AP/LAT/SWIMMERS RADEX SPINE THORACIC 3 VIEWS Jayashree Remy APRN.BALING PRESS OPERATOR [address] [place] [address] [place] [address] Referral ID Status Reason Start Date Expiration Date V isits Requested Visits Authorized [id number] Closed Auto-Generate d Referral 11/13/2023 12/12/2024 1 1 * Diagnostic Procedure Only (Urgent) - Closed Specialty Diagnoses / Procedures Referred By Contac t Referred To Contact XR IMAGING Diagnoses Chronic bilateral low back pain without sciatica Procedures XR LUMBAR GENERAL 3V AP/LAT/L5-S1 RADEX SPINE LUMBOSACRAL 2/3 VIEWS Jayashree Remy APRN.BALING PRESS OPERATOR [address] [place] [address] [place] [address] Referral ID Status Reason Start Date Expiration Date V isits Requested Visits Authorized [id number] Closed Auto-Generate d Referral 11/13/2023 12/12/2024 1 1 [facility] for visit Narrative* Diagnostic Procedure Only (Routine) - Closed Specialty Diagnoses / Procedures Referred By Contac t Referred To Contact US IMAGING Diagnoses Lump in chest Procedures US CHEST WALL/SOFT TISSUE US CHEST REAL TIME W/IMAGE DOCUMENTATION Jayashree Remy APRN.BALING PRESS OPERATOR [address] [place] [address] Us Imaging Referral ID Status Reason Start Date Expiration Date V isits Requested Visits Authorized [id number] Closed Auto-Generate d Referral 11/28/2022 12/28/2023 1 1 [facility] for visit Narrative* Diagnostic Procedure Only (Urgent) - Closed Specialty Diagnoses / Procedures Referred By Contac t Referred To Contact XR IMAGING Diagnoses Chronic bilateral low back pain without sciatica Procedures XR THORACIC GENERAL 3V AP/LAT/SWIMMERS RADEX SPINE THORACIC 3 VIEWS Jayashree Remy, COUNTER STITCHER.BALING PRESS OPERATOR [address] [place] [address] [place] [address] Referral ID Status Reason Start Date Expiration Date V isits Requested Visits Authorized [id number] Closed Auto-Generate d Referral 11/13/2023 12/12/2024 1 1 [facility] Chief Complaint and Reason for Visit Chief Complaint ACUTE MS CHANGES ACUTE MS CHANGES ACUTE MS CHANGES ACUTE MS CHANGES ACUTE MS CHANGES Reason for Visit Generalized weakness Ischemic colitis Nausea and vomiting Near syncope Stenosis of right carotid artery Chief Complaint SYNCOPE Reason for Visit Bradycardia, sinus History of breast cancer Syncope Chief Complaint SYNCOPE Syncope Reason for Visit Bradycardia, sinus History of breast cancer Syncope Chief Complaint SYNCOPE Syncope ABN TTE ABN TTE Reason for Visit Bradycardia, sinus Syncope Family History Relationship Condition Age at Onset Recorded Date/T wilman Unknown Family History?Cance r, No pertinent history Unknown June 07, 2020 6:28pm Family History?No pertinent history Unkno wn June 07, 2020 6:28pm Relationship Condition Age at Onset Recorded Date/T wilman Unknown Family History?Cance r, No pertinent history Unknown June 07, 2020 6:28pm Family History?No pe rtinent history Unknown June 07, 2020 6:28pm Family History?No pe rtinent history Unknown December 05, 2022 11:34am Advance Directives Advance Directive Response Recorded Date/ Time Name of Medical Power of Copy Operator Armando Webb May 25, 2022 5:41pm Living Will Yes May 25, 2022 5:41pm Power of Copy Operator Yes May 25 5:41pm Advance Directive Response Recorded Date/ Time Living Will No February 26, 2024 10:52am Power of Copy Operator No February 25 10:52am Advance Directive Response Recorded Date/ Time Name of Medical Power of Copy Operator all three kids February 26, 2024 3:45pm Living Will Yes February 26, 2024 3:45pm Power of Copy Operator Yes February 25 3:45pm Medications Administered Section Inactive Administered Medications - up to 3 most recent administrations Medication Order MAR Action Action Date Dose Rate Site cyanocobalamin 1,000 mcg injection 1,000 mcg, INTRAMUSCULAR, ONCE, 1 dose, On Sat08/30/23 at 1330 Given 08/30/2023 1:38 PM EDT 1,000 mcg A rm, Right Reason for Referral Specialty Diagnoses / Procedures Referred By Contac t Referred To Contact [facility] Diagnoses Osteoarthritis of spine with radiculopathy, 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, thoracic region Chronic midline low back pain without sciatica Procedures CONSULT TO PAIN MGT OFFICE/OUTPATIENT NEW HIGH MDM 60 MINUTES Lawson Ramos, DO [address] [place] [address] Anesthesia [place] [address] [place] [address] Referral ID Status Reason Start Date Expiration Date V isits Requested Visits Authorized [id number] Closed PCP Requested Referral 02/24/2024 02/23/2025 1 1 Specialty Diagnoses / Procedures Referred By Contac t Referred To Contact Jayashree Remy APRN.BALING PRESS OPERATOR [address] [place] [address] Referral ID Status Reason Start Date Expiration Date Visits Re quested Visits Authorized [id number] Closed 1 1 Summary Purpose Additional Source Comments Source Comments (unrecognize d section and content) In the event this informatio n is protected by the Federal Confidentiality of Alcohol and Drug Abuse Patient Records regulations: The Federal rules restrict any use of the information to criminally investigate or prosecute any alcohol or drug abuse patient.[facility] the event this information is protected by the Federal Confidentiality of Alcohol and Drug Abuse Patient Records regulations: The Federal rules restrict any use of the information to criminally investigate or prosecute any alcohol or drug abuse patient.[facility] the event this information is protected by the Federal Confidentiality of Alcohol and Drug Abuse Patient Records regulations: The Federal rules restrict any use of the information to criminally investigate or prosecute any alcohol or drug abuse patient.[facility] the event this information is protected by the Federal Confidentiality of Alcohol and Drug Abuse Patient Records regulations: The Federal rules restrict any use of the information to criminally investigate or prosecute any alcohol or drug abuse patient.[facility] the event this information is protected by the Federal Confidentiality of Alcohol and Drug Abuse Patient Records regulations: The Federal rules restrict any use of the information to criminally investigate or prosecute any alcohol or drug abuse patient.[facility] the event this information is protected by the Federal Confidentiality of Alcohol and Drug Abuse Patient Records regulations: The Federal rules restrict any use of the information to criminally investigate or prosecute any alcohol or drug abuse patient.[facility] the event this information is protected by the Federal Confidentiality of Alcohol and Drug Abuse Patient Records regulations: The Federal rules restrict any use of the information to criminally investigate or prosecute any alcohol or drug abuse patient.[facility] Dayton[facility] the event this information is protected by the Federal Confidentiality of Alcohol and Drug Abuse Patient Records regulations: The Federal rules restrict any use of the information to criminally investigate or prosecute any alcohol or drug abuse patient.[facility] the event this information is protected by the Federal Confidentiality of Alcohol and Drug Abuse Patient Records regulations: The Federal rules restrict any use of the information to criminally investigate or prosecute any alcohol or drug abuse patient.[facility] Dayton[facility] the event this information is protected by the Federal Confidentiality of Alcohol and Drug Abuse Patient Records regulations: The Federal rules restrict any use of the information to criminally investigate or prosecute any alcohol or drug abuse patient.[facility] Dayton[facility] the event this information is protected by the Federal Confidentiality of Alcohol and Drug Abuse Patient Records regulations: The Federal rules restrict any use of the information to criminally investigate or prosecute any alcohol or drug abuse patient.[facility] Dayton[facility] the event this information is protected by the Federal Confidentiality of Alcohol and Drug Abuse Patient Records regulations: The Federal rules restrict any use of the information to criminally investigate or prosecute any alcohol or drug abuse patient.[facility] the event this information is protected by the Federal Confidentiality of Alcohol and Drug Abuse Patient Records regulations: The Federal rules restrict any use of the information to criminally investigate or prosecute any alcohol or drug abuse patient.[facility] the event this information is protected by the Federal Confidentiality of Alcohol and Drug Abuse Patient Records regulations: The Federal rules restrict any use of the information to criminally investigate or prosecute any alcohol or drug abuse patient.[facility] the event this information is protected by the Federal Confidentiality of Alcohol and Drug Abuse Patient Records regulations: The Federal rules restrict any use of the information to criminally investigate or prosecute any alcohol or drug abuse patient.[facility] the event this information is protected by the Federal Confidentiality of Alcohol and Drug Abuse Patient Records regulations: The Federal rules restrict any use of the information to criminally investigate or prosecute any alcohol or drug abuse patient.[facility] the event this information is protected by the Federal Confidentiality of Alcohol and Drug Abuse Patient Records regulations: The Federal rules restrict any use of the information to criminally investigate or prosecute any alcohol or drug abuse patient.[facility] Dayton[facility] the event this information is protected by the Federal Confidentiality of Alcohol and Drug Abuse Patient Records regulations: The Federal rules restrict any use of the information to criminally investigate or prosecute any alcohol or drug abuse patient.[facility] DaytonIn the event this information is protected by the Federal Confidentiality of Alcohol and Drug Abuse Patient Records regulations: The Federal rules restrict any use of the information to criminally investigate or prosecute any alcohol or drug abuse patient.[facility] DaytonIn the event this information is protected by the Federal Confidentiality of Alcohol and Drug Abuse Patient Records regulations: The Federal rules restrict any use of the information to criminally investigate or prosecute any alcohol or drug abuse patient.[facility] DaytonIn the event this information is protected by the Federal Confidentiality of Alcohol and Drug Abuse Patient Records regulations: The Federal rules restrict any use of the information to criminally investigate or prosecute any alcohol or drug abuse patient.[facility] DaytonIn the event this information is protected by the Federal Confidentiality of Alcohol and Drug Abuse Patient Records regulations: The Federal rules restrict any use of the information to criminally investigate or prosecute any alcohol or drug abuse patient.[facility] DaytonIn the event this information is protected by the Federal Confidentiality of Alcohol and Drug Abuse Patient Records regulations: The Federal rules restrict any use of the information to criminally investigate or prosecute any alcohol or drug abuse patient.[facility] DaytonIn the event this information is protected by the Federal Confidentiality of Alcohol and Drug Abuse Patient Records regulations: The Federal rules restrict any use of the information to criminally investigate or prosecute any alcohol or drug abuse patient.[facility] DaytonIn the event this information is protected by the Federal Confidentiality of Alcohol and Drug Abuse Patient Records regulations: The Federal rules restrict any use of the information to criminally investigate or prosecute any alcohol or drug abuse patient.[facility] DaytonIn the event this information is protected by the Federal Confidentiality of Alcohol and Drug Abuse Patient Records regulations: The Federal rules restrict any use of the information to criminally investigate or prosecute any alcohol or drug abuse patient.[facility] DaytonIn the event this information is protected by the Federal Confidentiality of Alcohol and Drug Abuse Patient Records regulations: The Federal rules restrict any use of the information to criminally investigate or prosecute any alcohol or drug abuse patient.[facility] DaytonIn the event this information is protected by the Federal Confidentiality of Alcohol and Drug Abuse Patient Records regulations: The Federal rules restrict any use of the information to criminally investigate or prosecute any alcohol or drug abuse patient.[facility] DaytonIn the event this information is protected by the Federal Confidentiality of Alcohol and Drug Abuse Patient Records regulations: The Federal rules restrict any use of the information to criminally investigate or prosecute any alcohol or drug abuse patient.[facility] DaytonIn the event this information is protected by the Federal Confidentiality of Alcohol and Drug Abuse Patient Records regulations: The Federal rules restrict any use of the information to criminally investigate or prosecute any alcohol or drug abuse patient.[facility] DaytonIn the event this information is protected by the Federal Confidentiality of Alcohol and Drug Abuse Patient Records regulations: The Federal rules restrict any use of the information to criminally investigate or prosecute any alcohol or drug abuse patient.[facility] DaytonIn the event this information is protected by the Federal Confidentiality of Alcohol and Drug Abuse Patient Records regulations: The Federal rules restrict any use of the information to criminally investigate or prosecute any alcohol or drug abuse patient.[facility] DaytonIn the event this information is protected by the Federal Confidentiality of Alcohol and Drug Abuse Patient Records regulations: The Federal rules restrict any use of the information to criminally investigate or prosecute any alcohol or drug abuse patient.[facility] DaytonIn the event this information is protected by the Federal Confidentiality of Alcohol and Drug Abuse Patient Records regulations: The Federal rules restrict any use of the information to criminally investigate or prosecute any alcohol or drug abuse patient.[facility] DaytonIn the event this information is protected by the Federal Confidentiality of Alcohol and Drug Abuse Patient Records regulations: The Federal rules restrict any use of the information to criminally investigate or prosecute any alcohol or drug abuse patient.[facility] DaytonIn the event this information is protected by the Federal Confidentiality of Alcohol and Drug Abuse Patient Records regulations: The Federal rules restrict any use of the information to criminally investigate or prosecute any alcohol or drug abuse patient.[facility] DaytonIn the event this information is protected by the Federal Confidentiality of Alcohol and Drug Abuse Patient Records regulations: The Federal rules restrict any use of the information to criminally investigate or prosecute any alcohol or drug abuse patient.[facility] DaytonIn the event this information is protected by the Federal Confidentiality of Alcohol and Drug Abuse Patient Records regulations: The Federal rules restrict any use of the information to criminally investigate or prosecute any alcohol or drug abuse patient.[facility] DaytonIn the event this information is protected by the Federal Confidentiality of Alcohol and Drug Abuse Patient Records regulations: The Federal rules restrict any use of the information to criminally investigate or prosecute any alcohol or drug abuse patient.[facility] DaytonIn the event this information is protected by the Federal Confidentiality of Alcohol and Drug Abuse Patient Records regulations: The Federal rules restrict any use of the information to criminally investigate or prosecute any alcohol or drug abuse patient.[facility] DaytonIn the event this information is protected by the Federal Confidentiality of Alcohol and Drug Abuse Patient Records regulations: The Federal rules restrict any use of the information to criminally investigate or prosecute any alcohol or drug abuse patient.[facility] DaytonIn the event this information is protected by the Federal Confidentiality of Alcohol and Drug Abuse Patient Records regulations: The Federal rules restrict any use of the information to criminally investigate or prosecute any alcohol or drug abuse patient.[facility] DaytonIn the event this information is protected by the Federal Confidentiality of Alcohol and Drug Abuse Patient Records regulations: The Federal rules restrict any use of the information to criminally investigate or prosecute any alcohol or drug abuse patient.[facility] DaytonIn the event this information is protected by the Federal Confidentiality of Alcohol and Drug Abuse Patient Records regulations: The Federal rules restrict any use of the information to criminally investigate or prosecute any alcohol or drug abuse patient.[facility] DaytonIn the event this information is protected by the Federal Confidentiality of Alcohol and Drug Abuse Patient Records regulations: The Federal rules restrict any use of the information to criminally investigate or prosecute any alcohol or drug abuse patient.[facility] DaytonIn the event this information is protected by the Federal Confidentiality of Alcohol and Drug Abuse Patient Records regulations: The Federal rules restrict any use of the information to criminally investigate or prosecute any alcohol or drug abuse patient.[facility] DaytonIn the event this information is protected by the Federal Confidentiality of Alcohol and Drug Abuse Patient Records regulations: The Federal rules restrict any use of the information to criminally investigate or prosecute any alcohol or drug abuse patient.[facility] DaytonIn the event this information is protected by the Federal Confidentiality of Alcohol and Drug Abuse Patient Records regulations: The Federal rules restrict any use of the information to criminally investigate or prosecute any alcohol or drug abuse patient.[facility] DaytonIn the event this information is protected by the Federal Confidentiality of Alcohol and Drug Abuse Patient Records regulations: The Federal rules restrict any use of the information to criminally investigate or prosecute any alcohol or drug abuse patient.[facility] DaytonIn the event this information is protected by the Federal Confidentiality of Alcohol and Drug Abuse Patient Records regulations: The Federal rules restrict any use of the information to criminally investigate or prosecute any alcohol or drug abuse patient.[facility] DaytonIn the event this information is protected by the Federal Confidentiality of Alcohol and Drug Abuse Patient Records regulations: The Federal rules restrict any use of the information to criminally investigate or prosecute any alcohol or drug abuse patient.[facility] DaytonIn the event this information is protected by the Federal Confidentiality of Alcohol and Drug Abuse Patient Records regulations: The Federal rules restrict any use of the information to criminally investigate or prosecute any alcohol or drug abuse patient.[facility] DaytonIn the event this information is protected by the Federal Confidentiality of Alcohol and Drug Abuse Patient Records regulations: The Federal rules restrict any use of the information to criminally investigate or prosecute any alcohol or drug abuse patient.[facility] DaytonIn the event this information is protected by the Federal Confidentiality of Alcohol and Drug Abuse Patient Records regulations: The Federal rules restrict any use of the information to criminally investigate or prosecute any alcohol or drug abuse patient.[facility] DaytonIn the event this information is protected by the Federal Confidentiality of Alcohol and Drug Abuse Patient Records regulations: The Federal rules restrict any use of the information to criminally investigate or prosecute any alcohol or drug abuse patient.[facility] DaytonIn the event this information is protected by the Federal Confidentiality of Alcohol and Drug Abuse Patient Records regulations: The Federal rules restrict any use of the information to criminally investigate or prosecute any alcohol or drug abuse patient.[facility] DaytonIn the event this information is protected by the Federal Confidentiality of Alcohol and Drug Abuse Patient Records regulations: The Federal rules restrict any use of the information to criminally investigate or prosecute any alcohol or drug abuse patient.[facility] DaytonIn the event this information is protected by the Federal Confidentiality of Alcohol and Drug Abuse Patient Records regulations: The Federal rules restrict any use of the information to criminally investigate or prosecute any alcohol or drug abuse patient.[facility] DaytonIn the event this information is protected by the Federal Confidentiality of Alcohol and Drug Abuse Patient Records regulations: The Federal rules restrict any use of the information to criminally investigate or prosecute any alcohol or drug abuse patient.[facility] Reason for Visit (unrecogniz ed section and content) Reason Onset Date Comments Refill Request 01/30/2022 Reason Comments 6 Month Exam Reason Onset Date Comments Refill Request 03/16/2022 Reason Onset Date Comments Refill Request 05/07/2022 Reason Comments fax home care rx/request Reason Comments Hospital Follow Up UTI Reason Comments OV notes need signature Reason Comments Medication Question Reason Comments [facility] Reason Comments Medication Problem Reason Comments Appointment Reason Comments Recheck Reason Comments Refill Request Reason Onset Date Comments Refill Request 10/10/2022 Reason Comments Mass lump on chest x 2 we eks, burning and tender Reason Comments Results Reason Comments Results Reason Comments Orders Reason Onset Date Comments Refill Request 04/24/2023 Reason Onset Date Comments Yearly Exam Immunizations 08/30/2023 Flu vaccination Reason Comments Patient Update Reason Comments Back Pain Reason Comments Patient Request Reason Comments home health calling Reason Onset Date Comments Transition Of Care 02/28/2024 Reason Comments prescription problem rollator Reason Comments Hospital F/U 02/25. Patient passed out. Cardiac work up, stress test completed 03/04 Reason Comments Insurance Authorization B12 injections Reason Onset Date Comments Refill Request 03/16/2024 Reason Comments Faxed to [facility] Reason Onset Date Comments Refill Request 03/25/2024 Reason Onset Date Comments Refill Request 05/19/2024 Reason Onset Date Comments Refill Request 06/29/2024 Reason Onset Date Comments Refill Request 07/28/2024 Reason Onset Date Comments Refill Request 08/14/2024 Reason Onset Date Comments Refill Request 08/27/2024 Reason Onset Date Comments 6 Month Exam Immunizations 09/16/2024 Flu vaccination Reason Comments Insurance Authorization methocarbamol Reason Onset Date Comments Population Health Navigation Outreach 03/16/2025 Lela/Workbench/ACO Reason Comments 6month f/up Reason Onset Date Comments Population Health Navigation Outreach 04/06/2025 Reason Comments Recheck 1 month follow up Reason Comments Patient Update Results Reason Onset Date Comments Refill Request 07/15/2025 Care Teams (unrecognized sec tion and content) Administrative Services Officer Relationship Specialty Start Date End Date Lawson Ramos, DO [address] [place], [place] [address] PCP - General Family Practice 11/18/19 Administrative Services Officer Relationship Specialty Start Date End Date Lawson Ramos DO [address] [place], [place] [address] PCP - General Family Practice 11/18/19 Administrative Services Officer Relationship Specialty Start Date End Date Lawson Ramos, DO [address] [place] [address] PCP - General Family Practice 11/18/19 Administrative Services Officer Relationship Specialty Start Date End Date Lawson Ramos, DO [address] [place] [address] PCP - General Family Practice 11/18/19 Administrative Services Officer Relationship Specialty Start Date End Date Lawson Ramos, DO [address] [place] [address] PCP - General Family Practice 11/18/19 Administrative Services Officer Relationship Specialty Start Date End Date Lawson Ramos, DO [address] [place] [address] PCP - General Family Practice 11/18/19 Administrative Services Officer Relationship Specialty Start Date End Date Lawson Ramos, DO [address] [place] [address] PCP - General Family Practice 11/18/19 Administrative Services Officer Relationship Specialty Start Date End Date Lawson Ramos, DO [address] [place] [address] PCP - General Family Medicine 11/18/19 Administrative Services Officer Relationship Specialty Start Date End Date Lawson Ramos, DO [address] [place] [address] PCP - General Family Medicine 11/18/19 Administrative Services Officer Relationship Specialty Start Date End Date Lawson Ramos, DO [address] [place] [address] PCP - General Family Medicine 11/18/19 Administrative Services Officer Relationship Specialty Start Date End Date Lawson Ramos, DO [address] [place] [address] PCP - General Family Medicine 11/18/19 Administrative Services Officer Relationship Specialty Start Date End Date Lawson Ramos DO [address] [place] [address] PCP - General Family Medicine 11/18/19 Administrative Services Officer Relationship Specialty Start Date End Date Lawson Ramos DO [address] [place] [address] PCP - General Family Medicine 11/18/19 Administrative Services Officer Relationship Specialty Start Date End Date Lawson Ramos DO [address] [place] [address] PCP - General Family Medicine 11/18/19 Administrative Services Officer Relationship Specialty Start Date End Date Lawson Ramos DO [address] [place] [address] PCP - General Family Medicine 11/18/19 Administrative Services Officer Relationship Specialty Start Date End Date Lawson Ramos DO [address] [place] [address] PCP - General Family Medicine 11/18/19 Administrative Services Officer Relationship Specialty Start Date End Date Lawson Ramos DO [address] [place] [address] PCP - General Family Medicine 11/18/19 Administrative Services Officer Relationship Specialty Start Date End Date Lawson Ramos DO [address] [place] [address] PCP - General Family Medicine 11/18/19 Team Status: Active Member Role Status Dates Dr. Venkatesh Cox MD Family Provider Active Dr. Lawson Ramos DO Primary Care Provider Active Team Status: Active Member Role Status Dates Dr. Ezequiel Betancourt MD Emergency Provider Active Dr. Lawson Ramos DO Primary Care Provider Active Dr. Dex Mosteller , DO Admit Provider, Attending Provider Active Team Status: Active Member Role Status Dates Dr. Lawson Ramos DO Primary Care Provider Active Dr. Aniya Malik MD Attending Provider Active Team Status: Active Member Role Status Dates Dr. Ezequiel Betancourt MD Emergency Provider Active Dr. Lawson Ramos DO Primary Care Provider Active Dr. Dex Landaverde , DO Admit Provi johann, Attending Provider, Other Provider Active Dr. Aniya Malik MD Other Provider Active Team Status: Inactive Member Role Status Dates Dr. Ezequiel Betancourt MD Emergency Provider Active Dr. Lawson Ramos DO Primary Care Provider Active Dr. Dex Landaverde DO Admit Provider, Attending Provider Active Dr. Aniya Malik MD Other Provider Active Administrative Services Officer Relationship Specialty Start Date End Date Lawson Ramos DO [address] [place] [address] PCP - General Family Medicine 11/18/19 Administrative Services Officer Relationship Specialty Start Date End Date Lawson Ramos DO [address] [place] [address] PCP - General Family Medicine 11/18/19 Administrative Services Officer Relationship Specialty Start Date End Date Lawson Ramos DO [address] [place] [address] PCP - General Family Medicine 11/18/19 Administrative Services Officer Relationship Specialty Start Date End Date Lawson Ramos DO [address] [place] [address] PCP - General Family Medicine 11/18/19 Administrative Services Officer Relationship Specialty Start Date End Date Lawson Ramos DO [address] [place] [address] PCP - General Family Medicine 11/18/19 Team Status: Active Member Role Status Dates Dr. Lawson Ramos DO Primary Care Provider Active Dr. Dex Landaverde DO Referring Provider, Other Provider Active Dr. Kamini Hsieh MD Attending Provider Activ e Team Status: Inactive Member Role Status Dates Dr. Lawson Ramos DO Primary Care Provider Active Dr. Dex Landaverde DO Attending Provider, Refer ring Provider Active Administrative Services Officer Relationship Specialty Start Date End Date Lawson Ramos DO [address] [place] [address] PCP - General Family Medicine 11/18/19 Administrative Services Officer Relationship Specialty Start Date End Date Lawson Ramos DO [address] [place] [address] PCP - General Family Medicine 11/18/19 Administrative Services Officer Relationship Specialty Start Date End Date Lawson Ramos DO [address] [place] [address] PCP - General Family Medicine 11/18/19 Administrative Services Officer Relationship Specialty Start Date End Date Lawson Ramos DO [address] [place] [address] PCP - General Family Medicine 11/18/19 Administrative Services Officer Relationship Specialty Start Date End Date Lawson Ramos DO [address] [place] [address] PCP - General Family Medicine 11/18/19 Administrative Services Officer Relationship Specialty Start Date End Date Lawson Ramos DO [address] [place] [address] PCP - General Family Medicine 11/18/19 Administrative Services Officer Relationship Specialty Start Date End Date Lawson Ramos DO [address] [place] [address] PCP - General Family Medicine 11/18/19 Administrative Services Officer Relationship Specialty Start Date End Date Lawson Ramos DO [address] [place] [address] PCP - General Family Medicine 11/18/19 Administrative Services Officer Relationship Specialty Start Date End Date Lawson Ramos DO [address] [place] [address] PCP - General Family Medicine 11/18/19 Administrative Services Officer Relationship Specialty Start Date End Date Lawson Ramos DO [address] [place] [address] PCP - General Family Medicine 11/18/19 Administrative Services Officer Relationship Specialty Start Date End Date Lawson Ramos, [address] [place] [address] PCP - General Family Medicine 11/18/19 Administrative Services Officer Relationship Specialty Start Date End Date Lawson Ramos DO [address] [place] [address] PCP - General Family Medicine 11/18/19 Sierra Pedroza, COUNTER STITCHER.BALING PRESS OPERATOR [address] [place] [address] [facility] 10/18/24 Jayashree Remy, COUNTER STITCHER.BALING PRESS OPERATOR [address] [place] [address] [facility] 10/18/24 Administrative Services Officer Relationship Specialty Start Date End Date Lawson Ramos DO [address] [place] [address] PCP - General Family Medicine 11/18/19 [facility], COUNTER STITCHER.BALING PRESS OPERATOR [address] [place] [address] [facility] 10/18/24 Administrative Services Officer Relationship Specialty Start Date End Date Lawson Ramos DO [address] [place] [address] PCP - General Family Medicine 11/18/19 [facility], COUNTER STITCHER.BALING PRESS OPERATOR [address] [place] [address] [facility] 10/18/24 Administrative Services Officer Relationship Specialty Start Date End Date Lawson Ramos DO [address] [place] [address] PCP - General Family Medicine 11/18/19 [facility], COUNTER STITCHER.BALING PRESS OPERATOR [address] [place] [address] [facility] 10/18/24 Administrative Services Officer Relationship Specialty Start Date End Date Lawson Ramos DO [address] [place] [address] PCP - General Family Medicine 11/18/19 [facility], COUNTER STITCHER.BALING PRESS OPERATOR [address] [place] [address] [facility] 10/18/24 Administrative Services Officer Relationship Specialty Start Date End Date Lawson Ramos DO [address] [place] [address] PCP - General Family Medicine 11/18/19 [facility], COUNTER STITCHER.BALING PRESS OPERATOR [address] [place] [address] [facility] 10/18/24 Administrative Services Officer Relationship Specialty Start Date End Date Lawson Ramos DO [address] [place] [address] PCP - General Family Medicine 11/18/19 DorianJayashree, COUNTER STITCHER.BALING PRESS OPERATOR [address] [place] [address] [facility] 10/18/24 Administrative Services Officer Relationship Specialty Start Date End Date Lawson Ramos DO [address] [place] [address] PCP - General Family Medicine 11/18/19 DorianJayashree, COUNTER STITCHER.BALING PRESS OPERATOR [address] [place] [address] [facility] 10/18/24 Bhavya Liu, COUNTER STITCHER.BALING PRESS OPERATOR [address] [place] [address] [facility] 04/26/25 Administrative Services Officer Relationship Specialty Start Date End Date Lawson Ramos DO [address] [place] [address] PCP - General Family Medicine 11/18/19 DorianJayashree, COUNTER STITCHER.BALING PRESS OPERATOR [address] [place] [address] [facility] 10/18/24 Bhavya Liu COUNTER STITCHER.BALING PRESS OPERATOR [address] [place] [address] [facility] 04/26/25 Administrative Services Officer Relationship Specialty Start Date End Date Lawson Ramos DO [address] [place] [address] PCP - General Family Medicine 11/18/19 Jayashree Remy, COUNTER STITCHER.BALING PRESS OPERATOR [address] [place] [address] [facility] 10/18/24 Bhavya Liu, SHAHLA.BALING PRESS OPERATOR [address] [place] [address] [facility] 04/26/25 Administrative Services Officer Relationship Specialty Start Date End Date Lawson Ramos DO [address] [place] [address] PCP - General Family Medicine 11/18/19 Jayashree Remy, COUNTER STITCHER.BALING PRESS OPERATOR [address] [place] [address] [facility] 10/18/24 Bhavya Liu, COUNTER STITCHER.BALING PRESS OPERATOR [address] [place] [address] [facility] 04/26/25 Administrative Services Officer Relationship Specialty Start Date End Date Lawson Ramos DO [address] [place] [address] PCP - General Family Medicine 11/18/19 Jayashree eRmy, COUNTER STITCHER.BALING PRESS OPERATOR [address] [place] [address] [facility] 10/18/24 Bhavya Liu APRN.[facility] [address] [place] [address] [facility] 04/26/25 Goals (unrecognized section and content) Goals may be documented in a n alternate section INFORMATION SOURCE (unrecogn ized section and content) DATE CREATED AUTHOR 05/26/2024 [facility] DATE CREATED AUTHOR AUTHOR'S REYNALDO ATSJ 06/29/2025 [facility] FOR RECORDS PERTAINING TO PATIENTS WHO ARE OR HAVE BEEN ENROLLED IN A CHEMICAL DEPENDENCY/SUBSTANCEABUSE PROGRAM, SOME INFORMATION MAY BE OMITTED. This clinical summary was aggregated from multiple sources. Caution should be exercised in using it in the provision of clinical care. This summary normalizes information from multiple sources, and as a consequence, information in this document may materially change the coding, format and clinical context of patient data. In addition, data may be omitted in some cases. CLINICAL DECISIONS SHOULD BE BASED ON THE PRIMARY CLINICAL RECORDS. [facility]. provides no warranty or guarantee of the accuracy or completeness of information in this document.
[2025-08-16] MEDS: 0.9% Saline Lock 10 ML Syringe IV (18:58)
[2025-08-16 20:24] LABS: Red Blood Cells-Urine 0-5 SEEN /hpf (0-5); Squamous Epithelial Cells - UA 0-5 SEEN /hpf (5-10)
[2025-08-16 21:06] LABS: Vitamin D,25 Hydroxy 139.0 ng/mL (30-100)
[2025-08-16] MEDS: Metoprolol(XL)Succ 25 MG Tablet PO (22:50)
[2025-08-17] VITALS (16 sets, daily range): BP systolic 113–164; BP diastolic 63–97; PULSE 82–95; RESP 14–18; TEMP 36.4–37.4; O2SAT 92–96; BMI 23.5
[2025-08-17] MEDS: 0.9% Saline Lock 10 ML Syringe IV ×2 (04:23→08:40)
[2025-08-17 05:31] LABS: Hematocrit 38.4 % (37-47); Hemoglobin 13.3 g/dL (12.0-15.0); Immature Granulocytes Count 0.060 X10^3/uL (0.0-0.0); Mean Corp Hgb Conc 34.6 g/dL (32-36); Mean Corpuscular Volume 87.9 fL (81-99); Mean Platelet Vol. 10.5 fl (6.2-12.0); NRBC Flagged by Analyzer 0 % (0-5); Platelet Count 215 K/mm3 (150-450); RBC Distribution Width CV 13.2 % (11.6-14.6); RBC Distribution Width SD 42.6 fl (35.1-43.9); Red Blood Count 4.37 M/mm3 (4.2-5.4); White Blood Count 12.3 K/mm3 (4.4-11.0)
[2025-08-17 06:21] LABS: Anion Gap 12 (5-15); BUN 20 mg/dL (4-19); BUN/Creat Ratio 21.3 RATIO (10-20); Calcium,Total 8.8 mg/dL (7.6-11.0); Carbon Dioxide 21.9 mmol/L (21.0-32.0); Chloride 104 mmol/L (98-108); Estimated Creatinine Clearance 36.71 ml/min (50-250); Glucose 164 mg/dL (70-99); Potassium 3.9 mmol/L (3.3-5.1)
--- NOTE | 2025-08-17 07:02 | RAD_ITS ---
PROCEDURE: HIP MIN 2 VIEWS (PORTABLE) 08/17/2025 REASON FOR EXAM: FX Right hip replacement. TECHNIQUE: Procedure Code: RADH_P Modality: DX Procedure: HIP MIN 2 VIEWS (PORTABLE) intraoperative fluoroscopic services provided for right total hip replacement. Radiation dose: 0.3 mGy. 4.2 seconds of fluoroscopy. 3 spot images were obtained. Laterality: Right hip. COMPARISON: Prior study done August 16, 2025. FINDINGS: Intraoperative imaging provided for right total hip replacement. There is good alignment. RAD/Hip Min 2 Views (Portable) IMPRESSION: Intraoperative imaging provided for right total hip replacement. There is good alignment. Reading Location: [id number]
--- NOTE | 2025-08-17 07:29 | PCM.PN.HOSP ---
Reason for Visit Chief Complaint: Fall and right hip pain Objective Data Objective Data Vital Signs: Vital Signs Temp Pulse Resp BP Pulse Ox O2 Del Method O2 Flow Rate 98.4 F 94 18 164/97 H 94 Nasal Cannula 3 08/17/25 04:10 08/17/25 04:10 08/17/25 04:10 08/17/25 04:10 08/17/25 04:10 08/17/25 04:13 08/17/25 04:13 Oxygen Flow Rate (L/min) 3 Oxygen Delivery Method Nasal Cannula Weight: 137 lb 2.04 oz Body Mass Index (BMI) 23.5 Intake & Output: Intake and Output for Last 24 Hours 08/15/25 08/16/25 08/17/25 23:59 23:59 23:59 Intake Total 1000 / 1000 Output Total 1000 / 1000 450 / 450 Balance 0 / 0 -420 / -420 Lab / Micro Data 08/17/25 05:15 08/17/25 05:15 Labs: Laboratory Results - last 24 hr 08/16/25 16:01: WBC 7.4, RBC 4.80, Hgb 14.5, Hct 42.4, MCV 88.3, MCH 30.2, MCHC 34.2, RDW Std Deviation 42.9, RDW Coeff of Juan 13.1, Plt Count 245, MPV 10.6, Immature Gran % (Auto) 1.400 H, Neut % (Auto) 59.7, Lymph % (Auto) 28.7, Sequoyah % (Auto) 7.0, Eos % (Auto) 2.3, Baso % (Auto) 0.9, Absolute Neuts (auto) 4.4, Absolute Lymphs (auto) 2.12, Nucleated RBC % 0, Sodium 141, Potassium 3.7, Chloride 105, Carbon Dioxide 25.3, Anion Gap 11, BUN 22 H, Creatinine 1.00, Estim Creat Clear Calc 34.87 L, Est GFR (MDRD) Non-Af 55 L, BUN/Creatinine Ratio 22.2 H, Glucose 112 H, Calcium 9.2, Total Bilirubin 0.37, AST 26, ALT 11, Alkaline Phosphatase 98, Total Protein 7.0, Albumin 3.9, Globulin 3.1, Albumin/Globulin Ratio 1.3, Vitamin D 25-Hydroxy 139.0 H 08/16/25 16:46: Urine Color Straw, Urine Clarity Clear, Urine pH 6.5, Ur Specific [place] 1.030, Urine Protein Negative, Urine Glucose (UA) Normal, Urine Ketones Negative, Urine Occult Blood 10 H, Urine Nitrite Negative, Urine Bilirubin Negative, Urine Urobilinogen Normal, Ur Leukocyte Esterase Negative, Urine RBC 0-5 SEEN, Urine WBC 0-5 SEEN, Ur Squamous Epith Cells 0-5 SEEN, Urine Bacteria 0 SEEN, Urine Mucus 0 SEEN 08/17/25 05:15: WBC 12.3 H, RBC 4.37, Hgb 13.3, Hct 38.4, MCV 87.9, MCH 30.4, MCHC 34.6, RDW Std Deviation 42.6, RDW Coeff of Juan 13.2, Plt Count 215, MPV 10.5, Immature Gran % (Auto) 0.500, Neut % (Auto) 83.5 H, Lymph % (Auto) 9.1 L, Sequoyah % (Auto) 6.0, Eos % (Auto) 0.3, Baso % (Auto) 0.6, Absolute Neuts (auto) 10.2 H, Absolute Lymphs (auto) 1.12, Nucleated RBC % 0, Sodium 138, Potassium 3.9, Chloride 104, Carbon Dioxide 21.9, Anion Gap 12, BUN 20 H, Creatinine 0.95, Estim Creat Clear Calc 36.71 L, Est GFR (MDRD) Non-Af 58 L, BUN/Creatinine Ratio 21.3 H, Glucose 164 H, Calcium 8.8, Blood Type B NEGATIVE, Antibody Screen NEGATIVE Radiography Diagnostic Testing: Radiology Impression Chest X-Ray 08/16/25 15:35 IMPRESSION: Stable examination. No acute abnormality is seen. Reading Location: [facility] Femur X-Ray 08/16/25 15:35 IMPRESSION: Transverse right subcapital fracture of the proximal right femur with cephalic migration of the distal fracture fragment. Reading Location: [id number] Pelvis X-Ray 08/16/25 15:35 IMPRESSION: Transverse right subcapital fracture of the proximal right femur with cephalic migration of the distal fracture fragment. Reading Location: [id number] Physical Exam Narrative Seen and examined. Patient has pain over greater trochanter and ischial buttock region of RLE. RLE flexed, shortened and externally rotated Physical exam General: Alert, Oriented x3, Cooperative HEENT: Atraumatic, PERRLA, EOMI, Normocephalic. Oral: No Gingival or Mucosal Lesions/ Ulcerations Neck: Supple, No JVD, Negative Carotid Bruits Chest wall/Lungs: Air entry diminished in bilateral lung bases. No crepitation/rhonchi Cardiovascular: Regular rate and rhythm, Normal S1,S2, No M/G/R Abdomen: Bowel Sounds Present, Soft, Non Tender, Non-Distended : No dysuria. No renal angle tenderness. No suprapubic tenderness. Extremities: No edema, Capillary Refill Less than 3 Seconds Skin: No rashes, No breakdown Musculoskeletal: Tenderness over greater trochanter and ischial region. ROM noted to attempted on the right hip/RLE Neurological: Cranial nerves II-XII grossly intact, DTR 2+/4. No acute focal neurological deficit. Psych/Mental Status: Flat affect. Mild dementia Assessment & Plan Assessment/Plan (1) Closed fracture of right hip: PLAN: Status post mechanical fall Discussed with the patient's family at the bedside. Pain control, PT and OT. Patient had BM on 08/16. Bladder and bowel control Dr. Arredondo of orthopedics [facility] risk factors show that patient is of average risk for serious complication, any complication, above average risk for pneumonia, cardiac complication, VTE, sepsis, UTI, renal failure, readmission and discharged to a nursing or rehab facility and . Most recent vitals BP 113/64, heart rate 89/min. Patient had right hip hemiarthroplasty on 08/17/202508/17: Vitamin D 25-hydroxy 139, serum level high. Laboratory Results 08/16/25 16:01: WBC 7.4, RBC 4.80, Hgb 14.5, Hct 42.4, MCV 88.3, MCH 30.2, MCHC 34.2, RDW Std Deviation 42.9, RDW Coeff of Juan 13.1, Plt Count 245, MPV 10.6, Immature Gran % (Auto) 1.400 H, Neut % (Auto) 59.7, Lymph % (Auto) 28.7, Sequoyah % (Auto) 7.0, Eos % (Auto) 2.3, Baso % (Auto) 0.9, Absolute Neuts (auto) 4.4, Absolute Lymphs (auto) 2.12, Nucleated RBC % 0, Vitamin D 25-Hydroxy 139.0 H 08/16/25 16:46: Urine Color Straw, Urine Clarity Clear, Urine pH 6.5, Ur Specific [place] 1.030, Urine Protein Negative, Urine Glucose (UA) Normal, Urine Ketones Negative, Urine Occult Blood 10 H, Urine Nitrite Negative, Urine Bilirubin Negative, Urine Urobilinogen Normal, Ur Leukocyte Esterase Negative, Urine RBC 0-5 SEEN, Urine WBC 0-5 SEEN, Ur Squamous Epith Cells 0-5 SEEN, Urine Bacteria 0 SEEN, Urine Mucus 0 SEEN 08/17/25 05:15: WBC 12.3 H, RBC 4.37, Hgb 13.3, Hct 38.4, MCV 87.9, MCH 30.4, MCHC 34.6, RDW Std Deviation 42.6, RDW Coeff of Juan 13.2, Plt Count 215, MPV 10.5, Immature Gran % (Auto) 0.500, Neut % (Auto) 83.5 H, Lymph % (Auto) 9.1 L, Sequoyah % (Auto) 6.0, Eos % (Auto) 0.3, Baso % (Auto) 0.6, Absolute Neuts (auto) 10.2 H, Absolute Lymphs (auto) 1.12, Nucleated RBC % 0, Sodium 138, Potassium 3.9, Chloride 104, Carbon Dioxide 21.9, Anion Gap 12, BUN 20 H, Creatinine 0.95, Estim Creat Clear Calc 36.71 L, Est GFR (MDRD) Non-Af 58 L, BUN/Creatinine Ratio 21.3 H, Glucose 164 H, Calcium 8.8, Blood Type B NEGATIVE, Antibody Screen NEGATIVE PLAN: Plan Hypertensive urgency Likely reactive due to her hip fracture. 08/17: Blood pressure is controlled.Continue home medications including amlodipine and metoprolol succinate and lisinopril Mood disorder: Continue with sertraline VTE prophylaxis with SCDs CODE STATUS: Addressed with the patient and her family. Has been verify that she is DNR CCA. Discussed with the family member. DNR CC arrest but CODE STATUS will be on hold till 24 hours postop Charges/Coding Visit Charges Inpatient E&M: 02620 Subs Hosp L2
[2025-08-17] MEDS: Metoprolol(XL)Succ 25 MG Tablet PO ×2 (08:46→21:33)
--- NOTE | 2025-08-17 12:08 | PCM.PRE.AN2 ---
ASA Classification* ASA Classification ASA Classification: 3 Assessment & Plan Anesthesia* Anesthesia Assessment Anesthesia Assessment: Discussed sedation and/or anesthesia options, risks, benefits, and alternatives with patient/parents/legal guardian/POA. Questions invited. The patient/parents/legal guardian/POA seems to understand and agrees to proceed with anesthesia plan. Reviewed the physical assessment, medical history, allergy history and patient home medications list prior to surgery/procedure/anesthetic and documented any changes. Performed airway and anesthesia risk assessments. Anesthesia Type Anesthesia Type: General Anesthesia Focused Assessment* Temperature: 98 F Pulse Rate: 88 Blood Pressure: 156/77 Respiratory Rate: 16 Pulse Ox: 94 Oxygen Flow Rate (L/min): 3 Airway Assessment Mouth opens: >3 cm Mallampati Score: II Labs Anesthesia Preop lab: CBC WBC, (4.4-11.0) 12.3 K/mm3 H Today, 05:15 RBC, (4.2-5.4) 4.37 M/mm3 Today, 05:15 Hgb, (12.0-15.0) 13.3 g/dL Today, 05:15 Hct, (37-47) 38.4 % Today, 05:15 Plt Count, (150-450) 215 K/mm3 Today, 05:15 CHEMISTRY Potassium, (3.3-5.1) 3.9 mmol/L Today, 05:15 Sodium, (133-145) 138 mmol/L Today, 05:15 Magnesium, (1.6-2.6) 1.7 mg/dL 02/27/24, 06:25 Phosphorus, (2.5-4.9) 2.3 mg/dL L 02/27/24, 06:25 BUN, (4-19) 20 mg/dL H Today, 05:15 Creatinine, (0.70-1.20) 0.95 mg/dL Today, 05:15 Glucose, (70-99) 164 mg/dL H Today, 05:15 TSH, (0.358-3.74) 1.94 uIU/mL 05/26/22, 05:45 COAG PT, (11.7-14.9) 13.9 SECONDS 05/05/24, 14:50 Pre-Assessment Diagnosis/Proposed Procedure Planned Operative Procedure(s): Hemiarthroplasty hip fracture. 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 When Was Last Pacemaker Check QUESTION #4 FULL TEXT: You/Your Family Experience fever (hyperthermia) with Anesthesia Last Oral Intake Last Oral intake: Last Oral Intake NPO since 00:00 08/17/25 10:26 Meds taken in AM with sips of Yes 08/17/25 10:26 water? Meds patient instructed to See MAR 08/17/25 10:26 take am of surgery PONV PONV - buckshot swage operator: PONV - buckshot swage operator Female HX of Motion Sickness HX of N/V After Surgery Non-Smoker Duration of Surgery greater than 60 minutes Number of Risk Factors PONV Score Height & Weight Height & Weight: Anesthesia: Height & Weight Height 5 ft 4 in 08/17/25 10:26 Weight: 62.2 kg 08/17/25 10:26 Body Mass Index (BMI) 23.5 08/17/25 10:26 Respiratory Assessment Respiratory Assessment - buckshot swage operator: Respiratory Tract Infection Hx - buckshot swage operator Hx Respiratory Tract Infection No 08/17/25 04:20 STOP Sleep Apnea STOP Sleep Apnea - buckshot swage operator: STOP Sleep Apnea - buckshot swage operator Hx Hypertension No 08/17/25 10:44 Hx Sleep Apnea No 08/16/25 17:49 CPAP BIPAP Do you snore loudly (louder No 08/16/25 17:49 than talking or can be heard Do you often feel tired/ No 08/16/25 17:49 fatigued/ sleepy during daytime? Has anyone observed you stop No 08/16/25 17:49 breathing during sleep? STOP Results Negative 08/16/25 17:49 QUESTION #5 FULL TEXT : Do you snore loudly (louder than talking or can be heard through closed doors)? Tobacco Use History Tobacco Use History - buckshot swage operator: Tobacco Use History - buckshot swage operator Tobacco Use Smoking Status Never smoker 08/16/25 17:49 Hx Tobacco Use No 08/16/25 17:49 Years Smoking Packs Smoked per Day Smoking Cessation Date was within the last 15 years Hx Smoking Cessation Date Hx Smoking Cessation Counseling Hematologic Medial History Hematologic Hx - buckshot swage operator: Hematologic Medical Hx - allergy nurse Hx of Blood Transfusion No 08/16/25 17:49 Hx of Transfusion in last 3 No 08/16/25 17:49 Months Date of Last Transfusion (if within last 3 months) Ever experience any problems No 08/16/25 17:49 with transfusion(s)? Specify any problems Hx of Preganancy in last 3 N/A 08/16/25 17:49 Months Nurse Filling Out Transfusion KBORNSTIN 08/16/25 17:49 & Questions: Date: 08/16/25 08/16/25 17:49 Time: 18:34 08/16/25 17:49 Patient unable to answer at this time (ie. confused, unrespo /Reproduction History /Reproductive History - buckshot swage operator: /Reproductive Hx- buckshot swage operator Hx Now Gestational Age (in weeks): EDC: Hx Hx Para Hx Section SAB No 12/17/22 13:16 Active Medications Active Medications: Current Medications Generic Name Dose Route Start Last Admin Trade Name Freq PRN Reason Stop Dose Admin Acetaminophen 650 mg 08/16/25 17:45 Acetaminophen 325 Mg Tablet PO Q6H PRN PRN Pain 1-10 Or Fever >100.7 Amlodipine Besylate 5 mg 08/17/25 10:00 08/17/25 08:44 Amlodipine 5 Mg Tablet PO 5 mg DAILY BECKY Administration Protocol Cephalexin 250 mg 08/16/25 17:45 08/16/25 18:41 Cephalexin 250 Mg Capsule PO Not Given [id number] BECKY Cholecalciferol 125 mcg 08/17/25 10:00 08/17/25 08:47 Cholecalciferol (Vit D3) 125 Mcg Capsule (5,000 Units) PO Not Given DAILY BECKY Hydralazine HCl 10 mg 08/16/25 17:45 08/16/25 18:58 Hydralazine 20 Mg/Ml Vial IV 10 mg Q4H PRN PRN Administration SBP GREATER THAN 180 Protocol Sodium Chloride 250 mls @ 15 mls/hr 08/16/25 17:53 IV .[id number] PRN Saline Flush Sodium Chloride 250 mls @ 15 mls/hr 08/16/25 17:53 IV .[id number] PRN Additional IVPB Infusion Lisinopril 10 mg 08/17/25 10:00 08/17/25 08:44 Lisinopril 10 Mg Tablet PO 10 mg DAILY BECKY Administration Protocol Methocarbamol 500 mg 08/17/25 10:00 08/17/25 08:45 Methocarbamol 500 Mg Tablet PO 500 mg DAILY BECKY Administration Metoprolol Succinate 25 mg 08/16/25 22:00 08/17/25 08:46 Metoprolol(Xl)Succ 25 Mg Tablet PO 25 mg BID BECKY Administration Protocol Morphine Sulfate 2 - 4 mg 08/16/25 17:45 08/17/25 08:39 Morphine 2 Mg/Ml Syringe IV 2 mg Q3H PRN PRN Administration Pain Score 6-10 Ondansetron HCl 4 mg 08/16/25 17:45 Ondansetron 4 Mg/2 Ml Vial IV Q8H PRN PRN NAUSEA/VOMITING Oxycodone HCl 5 mg 08/16/25 17:45 Oxycodone 5 Mg Tablet PO Q4H PRN PRN Pain Score 4-10 Senna/Docusate Sodium 2 tablet 08/16/25 22:00 08/17/25 08:47 Senna/Docusate Sodium 1 Tablet PO Not Given BID BECKY Sertraline HCl 50 mg 08/17/25 10:00 08/17/25 08:47 Sertraline 50 Mg Tablet PO Not Given DAILY BECKY Sodium Chloride 10 - 40 ml 08/16/25 17:53 08/17/25 08:40 0.9% Saline Lock 10 Ml Syringe IV 10 ml UD PRN Administration SALINE FLUSH PFSH Medical History CHF (congestive heart failure) History of breast cancer Dementia Over 65 years old COVID-19 Rosacea Viral warts Lipoma Solar lentigo Cerebral microvascular disease Borderline abnormal TFTs Tongue lesion Inflamed seborrheic keratosis Late onset Alzheimer's dementia without behavioral disturbance Actinic skin damage Vitamin D deficiency Hx of breast cancer Hypertension Osteoporosis Breast cancer Essential hypertension Home Medications ?Medication ?Instructions ?Recorded ?Last Taken ?Type cholecalciferol (vitamin D3) 125 125 mcg PO DAILY suppliment 05/25/22 02/26/24 History mcg (5,000 unit) tablet (Vitamin D3) cephalexin 250 mg capsule 250 mg PO MOWEFR UTI 02/26/24 02/26/24 History cyanocobalamin (vitamin B-12) 1,000 mcg IM QMONTH SUPPLEMENT 02/26/24 Unknown History 1,000 mcg/mL injection solution krill oil 500 mg capsule 2,000 mg PO DAILY SUPPLEMENT 02/26/24 02/26/24 History methocarbamol 500 mg tablet 500 mg PO DAILY muscle spasm 02/26/24 02/26/24 History turmeric 1 cap PO DAILY SUPPLEMENT 02/26/24 02/26/24 History amlodipine 5 mg tablet 5 mg PO DAILY HTN 30 days #30 tabs 02/27/24 Unknown Rx lisinopril 10 mg tablet 10 mg PO DAILY HTN 30 days #30 tabs 02/27/24 Unknown Rx metoprolol succinate 25 mg 25 mg PO BID HTN 08/16/25 Unknown History tablet,extended release 24 hr sertraline 100 mg tablet 50 mg PO DAILY MOOD 08/16/25 Unknown History Allergy/AdvReac Type Severity Reaction Status Date / Time No Known Allergies Allergy Verified 08/16/25 15:11 Surgical History H/O mastectomy Social History household members: spouse housing: house Smoking Status: Never smoker alcohol intake: never substance use type: does not use Review of Systems (Anesthesia) ROS Narrative System reviewed and no additional complaints, except as documented.
--- NOTE | 2025-08-17 12:10 | CASEMGMT ---
BUZZ SUMNER Assessment: Face to Face with pt for initial transition planning/care coordination assessment. BUZZ SUMNER introduced self and role at [facility], pt voices understanding and consents to assessment. Pt is A&O x4 and answers all questions appropriately at this time. Pt lying in bed getting ready to go to surgery. Two daughters standing at bedside. Pt agreeable to daughter answering questions about DC planning. Care providers, pharmacy, and demographics verified/updated. Strata: 2 Admitting Dx: R Hip fracture PCP: Richard Specialists: Maria Elena, Orthopedic Preferred Pharmacy: [facility] Insurance: [employer] Prescription Benefit: yes LNOK: Living Arrangements: Pt lives with in a multi-level home with 2 steps to enter. Pt has a stair lift to go up to the second floor. ADLs: Pt I with ADLs, has dementia and needs some assistance with IADLs. Transportation: Pt family provides transportation. DME: Portable tank, walker, cane, lift chair, stair lift, shower chair. HHC/SNF: Previously had HHC services, does not recall what agency. Pt daughter states we would like mom to go to [facility] TCU at time of DC. BUZZ SUMNER informed daughter that after surgery PT and OT will work with pt and BUZZ SUMNER will follow up after therapy works with patient and gives recommendations. Denies further concerns/needs. CM to follow. Advised pt to ask CM if any further question/concerns/needs arise, voices understanding. Pt Goal: TCU Plan: MICHELLE Ludwig RN, CM
[2025-08-17] MEDS: Lactated Ringers 1,000 ML 15 ML IV (13:00)
--- NOTE | 2025-08-17 13:00 | CONS.ORTHO ---
HPI Consult Data Date of Consult: 08/17/25 HPI Narrative Reason for Consultation: Right hip pain HPI Narrative: GONZALO ALVARADO, is a 85 F who presents with severe right hip pain status post fall yesterday patient lives at home with her . She ambulates with a cane. She does use assistance around the home. She has a history of dementia. Family notes that she does not use a walker. They do use a chairlift in the bathroom and have made significant accommodations around the house due to her decreased mobility. She had a mechanical fall by report from the family. She reports severe pain in the hip and groin worse with motion better with immobilization and pain medications. Much of the history comes from the and son who are at bedside. No reported numbness tingling distally. Unable to bear weight. [facility] Medical History CHF (congestive heart failure) History of breast cancer Dementia Over 65 years old COVID-19 Rosacea Viral warts Lipoma Solar lentigo Cerebral microvascular disease Borderline abnormal TFTs Tongue lesion Inflamed seborrheic keratosis Late onset Alzheimer's dementia without behavioral disturbance Actinic skin damage Vitamin D deficiency Hx of breast cancer Hypertension Osteoporosis Breast cancer Essential hypertension Home Medications ?Medication ?Instructions ?Recorded ?Last Taken ?Type cholecalciferol (vitamin D3) 125 125 mcg PO DAILY suppliment 05/25/22 02/26/24 History mcg (5,000 unit) tablet (Vitamin D3) cephalexin 250 mg capsule 250 mg PO MOWEFR UTI 02/26/24 02/26/24 History cyanocobalamin (vitamin B-12) 1,000 mcg IM QMONTH SUPPLEMENT 02/26/24 Unknown History 1,000 mcg/mL injection solution krill oil 500 mg capsule 2,000 mg PO DAILY SUPPLEMENT 02/26/24 02/26/24 History methocarbamol 500 mg tablet 500 mg PO DAILY muscle spasm 02/26/24 02/26/24 History turmeric 1 cap PO DAILY SUPPLEMENT 02/26/24 02/26/24 History amlodipine 5 mg tablet 5 mg PO DAILY HTN 30 days #30 tabs 02/27/24 Unknown Rx lisinopril 10 mg tablet 10 mg PO DAILY HTN 30 days #30 tabs 02/27/24 Unknown Rx metoprolol succinate 25 mg 25 mg PO BID HTN 08/16/25 Unknown History tablet,extended release 24 hr sertraline 100 mg tablet 50 mg PO DAILY MOOD 08/16/25 Unknown History Allergy/AdvReac Type Severity Reaction Status Date / Time No Known Allergies Allergy Verified 08/16/25 15:11 Surgical History H/O mastectomy Social History household members: spouse housing: house Smoking Status: Never smoker alcohol intake: never substance use type: does not use ROS ROS Narrative 14 point review systems outside was mentioned in the HPI is negative Vital Signs Vital Signs Vital Signs: 08/16/25 15:11 08/16/25 15:14 08/16/25 15:19 Temperature 97.7 F L Temperature Source Oral Pulse Rate 68 68 Pulse Strength Respiratory Rate 15 16 Respiratory Effort Normal Respiratory Depth Normal Respiratory Pattern Normal Blood Pressure 189/77 H Blood Pressure Mean 114 Blood Pressure Source Blood Pressure Position Blood Pressure Location Pulse Ox 88 97 Oxygen Delivery Method Room Air Nasal Cannula Nasal Cannula Oxygen Flow Rate (L/min) 2 2 08/16/25 17:17 08/16/25 17:18 08/16/25 18:58 Temperature 97.7 F L Temperature Source Pulse Rate 91 91 93 Pulse Strength Respiratory Rate 15 15 Respiratory Effort Respiratory Depth Respiratory Pattern Blood Pressure 205/92 H 205/92 H 188/103 H Blood Pressure Mean 129 129 Blood Pressure Source Blood Pressure Position Blood Pressure Location Pulse Ox 92 92 Oxygen Delivery Method Nasal Cannula Oxygen Flow Rate (L/min) 2 08/16/25 19:00 08/16/25 20:16 08/16/25 20:22 Temperature 97.5 F L 97.6 F L Temperature Source Oral Oral Pulse Rate 93 89 Pulse Strength Respiratory Rate 16 18 Respiratory Effort Normal Non-Labored Respiratory Depth Normal Respiratory Pattern Normal Blood Pressure 188/103 H 166/92 H Blood Pressure Mean 131 116 Blood Pressure Source Monitor Monitor Blood Pressure Position Supine Semi-Fowlers Blood Pressure Location Left Arm Right Arm Pulse Ox 92 93 Oxygen Delivery Method Nasal Cannula Nasal Cannula Nasal Cannula Oxygen Flow Rate (L/min) 2 3 3 08/16/25 22:00 08/16/25 22:50 08/17/25 04:10 Temperature 98.4 F Temperature Source Oral Pulse Rate 89 94 Pulse Strength Normal (2+) Respiratory Rate 18 Respiratory Effort Respiratory Depth Respiratory Pattern Blood Pressure 166/92 H 164/97 H Blood Pressure Mean 119 Blood Pressure Source Monitor Blood Pressure Position Semi-Fowlers Blood Pressure Location Left Arm Pulse Ox 94 Oxygen Delivery Method Nasal Cannula Oxygen Flow Rate (L/min) 3 08/17/25 04:13 08/17/25 08:30 08/17/25 08:46 Temperature 98.5 F Temperature Source Oral Pulse Rate 88 88 Pulse Strength Respiratory Rate 16 Respiratory Effort Normal Non-Labored Respiratory Depth Normal Respiratory Pattern Normal Blood Pressure 155/75 H 155/75 H Blood Pressure Mean 101 Blood Pressure Source Monitor Blood Pressure Position Semi-Fowlers Blood Pressure Location Left Arm Pulse Ox 94 Oxygen Delivery Method Nasal Cannula Nasal Cannula Oxygen Flow Rate (L/min) 3 3 08/17/25 10:00 08/17/25 10:26 08/17/25 12:09 Temperature 98 F 98 F Temperature Source Oral Pulse Rate 88 88 Pulse Strength Respiratory Rate 16 16 Respiratory Effort Normal Non-Labored Respiratory Depth Normal Respiratory Pattern Normal Blood Pressure 156/77 H 156/77 H Blood Pressure Mean 103 Blood Pressure Source Monitor Blood Pressure Position Semi-Fowlers Blood Pressure Location Left Arm Pulse Ox 94 94 Oxygen Delivery Method Nasal Cannula Nasal Cannula Oxygen Flow Rate (L/min) 3 3 3 Weight Weight: 137 lb 2.04 oz Body Mass Index (BMI) 23.5 Physical Exam Const alert Constitutional Narrative: Answers questions appropriately. General Appearance: cooperative HEENT normocephalic Eyes PERRL Neck no JVD Resp normal respiratory effort Cardio Cardio Narrative: Regular pulse rate distally GI non-distended Extremity Extremity Narrative: Right lower extremity: Skin clean, dry, and intact. Limb is shortened and externally rotated Motor is intact dorsiflexion, EHL and plantar flexion. Sensation is intact to light touch saphenous, yumi,l superficial peroneal, deep peroneal and tibial distributions. Calves are soft and supple. Skin no rashes or lesions noted and no wounds Neuro CN's II-XII intact bilaterally Psych Psych Narrative: Answers questions appropriately Medical Records Data Attestation: I reviewed the patient's medical records Lab / Micro Data Attestation: I reviewed the patient's lab results. 08/17/25 05:15 08/17/25 05:15 Labs: Laboratory Results - last 24 hr 08/16/25 16:01: WBC 7.4, RBC 4.80, Hgb 14.5, Hct 42.4, MCV 88.3, MCH 30.2, MCHC 34.2, RDW Std Deviation 42.9, RDW Coeff of Juan 13.1, Plt Count 245, MPV 10.6, Immature Gran % (Auto) 1.400 H, Neut % (Auto) 59.7, Lymph % (Auto) 28.7, Whiteside % (Auto) 7.0, Eos % (Auto) 2.3, Baso % (Auto) 0.9, Absolute Neuts (auto) 4.4, Absolute Lymphs (auto) 2.12, Nucleated RBC % 0, Sodium 141, Potassium 3.7, Chloride 105, Carbon Dioxide 25.3, Anion Gap 11, BUN 22 H, Creatinine 1.00, Estim Creat Clear Calc 34.87 L, Est GFR (MDRD) Non-Af 55 L, BUN/Creatinine Ratio 22.2 H, Glucose 112 H, Calcium 9.2, Total Bilirubin 0.37, AST 26, ALT 11, Alkaline Phosphatase 98, Total Protein 7.0, Albumin 3.9, Globulin 3.1, Albumin/Globulin Ratio 1.3, Vitamin D 25-Hydroxy 139.0 H 08/16/25 16:46: Urine Color Straw, Urine Clarity Clear, Urine pH 6.5, Ur Specific [place] 1.030, Urine Protein Negative, Urine Glucose (UA) Normal, Urine Ketones Negative, Urine Occult Blood 10 H, Urine Nitrite Negative, Urine Bilirubin Negative, Urine Urobilinogen Normal, Ur Leukocyte Esterase Negative, Urine RBC 0-5 SEEN, Urine WBC 0-5 SEEN, Ur Squamous Epith Cells 0-5 SEEN, Urine Bacteria 0 SEEN, Urine Mucus 0 SEEN 08/17/25 05:15: WBC 12.3 H, RBC 4.37, Hgb 13.3, Hct 38.4, MCV 87.9, MCH 30.4, MCHC 34.6, RDW Std Deviation 42.6, RDW Coeff of Juan 13.2, Plt Count 215, MPV 10.5, Immature Gran % (Auto) 0.500, Neut % (Auto) 83.5 H, Lymph % (Auto) 9.1 L, Whiteside % (Auto) 6.0, Eos % (Auto) 0.3, Baso % (Auto) 0.6, Absolute Neuts (auto) 10.2 H, Absolute Lymphs (auto) 1.12, Nucleated RBC % 0, Sodium 138, Potassium 3.9, Chloride 104, Carbon Dioxide 21.9, Anion Gap 12, BUN 20 H, Creatinine 0.95, Estim Creat Clear Calc 36.71 L, Est GFR (MDRD) Non-Af 58 L, BUN/Creatinine Ratio 21.3 H, Glucose 164 H, Calcium 8.8, Blood Type B NEGATIVE, Antibody Screen NEGATIVE Imaging Radiology Impression Chest X-Ray 08/16/25 15:35 IMPRESSION: Stable examination. No acute abnormality is seen. Reading Location: [id number] Femur X-Ray 08/16/25 15:35 IMPRESSION: Transverse right subcapital fracture of the proximal right femur with cephalic migration of the distal fracture fragment. Reading Location: [facility] Pelvis X-Ray 08/16/25 15:35 IMPRESSION: Transverse right subcapital fracture of the proximal right femur with cephalic migration of the distal fracture fragment. Reading Location: [id number] Independent evaluation of AP pelvis and AP and lateral full-length femur films of the right consistent with [place] 4 displaced transcervical femoral neck fracture. Additionally patient has significant degenerative disc disease at L4-5 and L5-S1 noted on the AP pelvis Assessment & Plan Assessment/Plan (1) Closed fracture of right hip: PLAN: Natural history of the disease process and treatment options were discussed with the patient as well as the family at bedside. We discussed nonoperative treatment, close reduction percutaneous pinning, partial hip replacement and total replacement. Ultimately based on patient's fracture pattern, current acetabular anatomy, and medical comorbidities I did recommend a right hip hemiarthroplasty as appropriate treatment option. Risk and benefits of the procedure were discussed the patient including but not limited to blood loss which could result in a transfusion, DVTs, PEs, nervous damage, infection, and risk of anesthesia including loss of life, fractures intraoperatively and postoperatively, dislocations leg length discrepancies. Family was at bedside as well during this conversation. All questions were answered to the best my ability. We also discussed postoperative course and reasonable expectations for the patient based on medical comorbidities and magnitude of injury. Family understands this is a significant marker of health and ultimately may take significant time to determine if the patient can return to independent living as desired. Antibiotics were ordered on-call to the operating room. Patient is NPO. Will proceed with surgery this afternoon.
[2025-08-17] MEDS: Cefazolin 1 GM/5 ML Vial 2 GM IV (13:15)
[2025-08-17] MEDS: Lidocaine 1% (5 ml sdv) 5 ML Vial IV (13:23)
[2025-08-17] MEDS: fentaNYL 100 MCG/2 ML Ampul IV (13:52)
--- NOTE | 2025-08-17 14:00 | FEM_PTH ---
PATIENT: GONZALO ALVARADO LOC: MS3 U#:[id number] AGE/SX: 85/F ROOM: [facility] RE08/16/[address]: Dr. Luciano Marshall MD : 1940 BED: 1 DIS: 08/20/2025 SPEC #: [id number] RECD: 08/17/25 15:29 STATUS: DEONDRE DAVE #: [id number] LYNDA: 08/17/25 14:[address]: Avila Arredondo DEPT: SURGICAL PATHOLOGY RECD BY: Samuel Lee ENTERED: 08/18/25 09:58 SP TYPE: FEM HEAD OTHR DR: DO Dr. Lawson Coates, DO Dr. Luciano Marshall MD Tissues: A - Femoral region, NOS Procedures: Decalcification bone/plaque Surgery Specimen Level V HEADER OPERATION: Hemiarthroplasty, hip PRE-OP DIAGNOSIS: Closed fracture of right hip TISSUE SUBMITTED: A- Femoral head, bone and soft tissue, right hip MICROSCOPIC DIAGNOSIS A. Femur, head, hemiarthroplasty: * Benign cartilage and bone with areas of disrupted bone trabeculae and hemorrhage consistent with fracture * Areas of trilineage hematopoiesis MICROSCOPIC DESCRIPTION Slides are reviewed. GROSS DESCRIPTION A. Received in formalin labeled with the patient's name and date of . Designated as femoral head, bone and soft tissue, right hip is a 4.2 x 4.1 x 3.4 cm slightly irregular, ovoid femoral head with a shaggy and congested resection margin; the femoral neck is detached in 2 pieces, collectively measuring 2.3 cm in length by 4.3 cm in diameter. The articular cartilage is preciado and somewhat granular, devoid of definitive eburnation or peripheral osteophyte formation. Sectioning reveals preciado-yellow trabeculated medullary bone. Subsurface Augmentee Operator sections are submitted in 2 cassettes, following decalcification as follows: A1: Femoral headA2: Femoral neck SC 08/18/2025 CPT:01785
[2025-08-17] MEDS: JPS (Morphine 10mg/ml) OPERA.SITE (14:15)
[2025-08-17] MEDS: TXA 2000mg in NS 100ml (Placed in Wound) OPERA.SITE (14:16)
--- NOTE | 2025-08-17 14:17 | PCM.OPRPT ---
Operative Report (Standard) Operative Information Date of Procedure: 08/17/25 Pre-Operative Diagnosis: Right hip femoral neck fracture Post-Operative Diagnosis: Right hip femoral neck fracture Surgery/Procedure Performed: Right hip hemiarthroplasty bioinformatics support specialist: Yes Marketing Database Consultant: Mason Dorsey Tasks completed by golf course assistant: Other (During the course of the procedure the physician elementary school band director (PE) played a vital role. Their intimate knowledge of my steps in the procedure aided in safe and expedient completion of the procedure. The PE played a vital rolls in positioning particularly in obtaining the appropriate positioning of the) Additional offset assistant press operator?: No Type of Anesthesia: General RN Documented Start/Stop Times: Operation Date: 08/17/25 14:00 Case Time Into Pre-Op 08/17/25 12:07 Out of Pre-Op 08/17/25 13:09 Anesthesia Start 08/17/25 13:15 Into Room 08/17/25 13:15 Procedure Start 08/17/25 13:39 Procedure End 08/17/25 14:41 Anesthesia End 08/17/25 14:43 Out of Room 08/17/25 14:43 Into Recovery 08/17/25 14:46 Out of Recovery 08/17/25 15:50 Procedure Start Time: 13:39 Procedure Stop Time: 14:41 Select all DRAINS/GRAFTS/IMPLANTS that apply: Prosthetic device Prosthetic device details: See body of operative report Special Medications: Ancef, 2 g TXA lavage Estimated Blood Loss: 200 mL Fluids Replaced: 600 mL crystalloid Specimen collected: Yes Description of specimen(s) removed: Femoral head Description of surgery: Components used: 1. Wetmore insignia high offset size 3 femoral stem 2. Jason Unitrax 43 mm cobalt chromium femoral head with +8 mm sleeve Procedure: On the date of procedure the patient's R hip was marked in the preoperative area. Patient was then taken back to the operating room where anesthesia assumed control of the C-spine and airway and administered anesthetic. Patient was transferred to the operating table and placed in the supine position. The hips were placed the break of the bed and a bump was placed in the sacrum. The R lower extremity was then prepped out in a sterile fashion using chlorhexidine while the surgeon scrubbed. Upon reentering the room the R lower extremity was draped in the standard orthopedic fashion and the incision was marked. A timeout was called and everyone agreed upon the side, the site, the procedure be performed, antibody given, and patient's identity. At this time incision was made through skin, subcutaneous tissue, and fat down to fascia. The fascia was then incised and the TFL was retracted laterally. A retractor was placed on the lateral border of the femoral neck. Attention was directed to the inferior portion of the approach and all crossing vessels were identified and appropriately coagulated. A retractor was then placed on the medial portion of the femoral neck. The anterior capsule was then cleared of all soft tissue and then H shaped capsulotomy was made. The retractors were then placed inside the capsule. The femoral neck was identified and a cleanup cut was made. At this time a power corkscrew was used to remove the femoral head. The femoral head was measures and a 43 mm unipolar component was selected. Soft tissue releases on the medial and lateral femoral neck were appropriately done, the leg was externally rotated and lateralized. A Williamson retractor was placed medially and proximally to the greater trochanter this allowed appropriate visualization and exposure of the femoral canal. Rongeour was then used to remove excess lateral bone. A canal finder and entry broach were used to open the proximal canal. Once we verified we were down the femoral canal we subsequently broached up to a size 3 femur. The appropriate neck was placed in the previously selected head was trialed with a 8mm neck. Traction was pulled and the hip was reduced with internal rotation. Once it was appropriately reduced and stability was checked. There was minimal shuck, equal leg lengths and appropriate stability with hyperextension and external rotation as well as with 90? flexion and internal rotation. The trial components were then dislocated the proximal femur was again exposed and the components were removed from the wound. The final components were verified and opened. The wound was copiously irrigated out with normal saline. The acetabulum was checked for any residual debris. The final components were placed and impacted. Traction and internal rotation were again used to reduce the hip. After adequate reduction the hip remained stable with appropriate leg lengths. The wound was then copiously irrigated with normal saline once more, and hemostasis was obtained. Closure was then done using #1 Vicryl runner to close the fascia. A 2-0 Vicryl runner was used to close the subcutaneous skin. A interrupted nylon sutures were used for final skin closure. A Silverorionn dressing was placed. Patient was awakened by anesthesia and transferred to the [facility]. Patient was then transferred to the PACU for recovery. Postoperative plan: Patient will get 24 hours postop antibiotics. Patient will get in-house physical therapy and will be weight-bear as tolerated. Patient will follow up in office in 2 weeks for a wound check and x-rays. Xarelto 10 mg daily for 2 weeks followed by aspirin 81 mg twice daily for 2 weeks for DVT prophylaxis due to decreased mobility. Surgical Findings: Stable hip. Equal leg lengths. Complete femoral neck fracture. Complications Complications: No Admit VTE Documentation VTE Present on Admission: No VTE Mechan Device Prophylaxis: SCD's and Thigh High RICKI Hose VTE Pharm Prophylaxis ordered?: Yes
--- NOTE | 2025-08-17 14:28 | CHAPLAIN ---
Type of Pastoral Visit ___ Initial Visit ___ Follow-up Visit ___ On-call Visit ___ General Patient Visit ___ Spiritual Assessment ___ Family Conference ___ Bereavement ___ Rapid Response ___ Code Blue ___ Other (describe below) Pastoral Care Referral From ___ Patient ___ Family ___ Nurse ___ Physician ___ Climate Change Analyst ___ Seed Corn Manager Production ___ Other (describe below) Sacrament/Intervention ___ Active listening ___ Anointing ___ Amish ___ Bereavement ___ Communion ___ Sienna exploration ___ ___ Life review ___ Prayer ___ Reconciliation ___ Sacrament of Sick ___ Supportive presence ___ Wedding ___ Other (describe below) Pastoral Comments patient was already in surgery at time of attempted visit; left a calling card in her room
--- NOTE | 2025-08-17 14:53 | RAD_ITS ---
PROCEDURE: HIP MIN 2 VIEWS (PORTABLE) 08/17/2025 REASON FOR EXAM: POST OP TECHNIQUE: Procedure Code: RADH_P Modality: DX Procedure: HIP MIN 2 VIEWS (PORTABLE) Laterality: COMPARISON: 08/17/2025. FINDINGS: Status post right hip arthroplasty. Surrounding soft tissue swelling and air which is expected postsurgically. Partially visualized degenerative changes of the left hip. RAD/Hip Min 2 Views (Portable) IMPRESSION: Intact right hip arthroplasty. Reading Location: [id number]
--- NOTE | 2025-08-17 14:59 | PCM.POST.ANE ---
Anesthesia: Postop Eval I Current Vital Signs Temperature: 99.4 F Pulse Rate: 90 Blood Pressure: 142/66 Respiratory Rate: 14 Pulse Ox: 94 Oxygen Delivery Method: Nasal Cannula Oxygen Flow Rate (L/min): 3 Assessment Airway patent: Yes Spontaneous unlabored respirations: Yes Mental status: Awake and Calm nausea: No Vomiting: No Anesthesia Complication: No Fluid Hydration Crystalloid volume administer (ml): 600 Total IV fluid infused: 600 Progress Note Anesthesia document: Postop Eval 1 completed: Yes
--- NOTE | 2025-08-17 15:15 | POSTOPAN2_ITS ---
Anesthesia Postop Eval I Sum Postop Eval Completion status Anesthesia document: Postop Eval 1 completed: Yes Anesthesia Postop Eval I Summary Anesthesia Postop Eval I Summary: Anesthesia Postop Eval I: Assessment Summary Airway patent Yes 08/17/25 15:00 SUPERVISOR COMMERCIAL FISH [email or web address] Spontaneous unlabored Yes 08/17/25 15:00 SUPERVISOR COMMERCIAL FISH [email or web address].[email or web address] respirations Mental status Awake,Calm 08/17/25 15:00 SUPERVISOR COMMERCIAL FISH [email or web address].[email or web address] nausea No 08/17/25 15:00 SUPERVISOR COMMERCIAL FISH [email or web address].[email or web address] Vomiting No 08/17/25 15:00 SUPERVISOR COMMERCIAL FISH [email or web address].[email or web address] Anesthesia Postop Eval I: Fluid Summary Crystalloid volume administer 600 08/17/25 15:00 SUPERVISOR COMMERCIAL FISH [email or web address].[email or web address] (ml) Colloids volume administered ( ml) Blood Product volume administered (ml) Total IV fluid infused 600 08/17/25 15:00 SUPERVISOR COMMERCIAL FISH [email or web address].[email or web address] Anesthesia Postop Eval I: Summary Notes Anesthesia Complication No 08/17/25 15:00 SUPERVISOR COMMERCIAL FISH [email or web address].[email or web address] Anesthesia Complication Comment: Post-operative progress note Anesthesia: Postop Eval II Evaluation Mental status: Awake Pain Level: 0 nausea: No Vomiting: No
--- NOTE | 2025-08-17 15:15 | PCM.POSTANE2 ---
Anesthesia Postop Eval I Sum Postop Eval Completion status Anesthesia document: Postop Eval 1 completed: Yes Anesthesia Postop Eval I Summary Anesthesia Postop Eval I Summary: Anesthesia Postop Eval I: Assessment Summary Airway patent Yes 08/17/25 15:00 BROODMARE [email or web address] Spontaneous unlabored Yes 08/17/25 15:00 BROODMARE [email or web address] respirations Mental status Awake,Calm 08/17/25 15:00 BROODMARE [email or web address] nausea No 08/17/25 15:00 BROODMARE [email or web address] Vomiting No 08/17/25 15:00 BROODMARE [email or web address] Anesthesia Postop Eval I: Fluid Summary Crystalloid volume administer 600 08/17/25 15:00 BROODMARE [email or web address] (ml) Colloids volume administered ( ml) Blood Product volume administered (ml) Total IV fluid infused 600 08/17/25 15:00 BROODMARE [email or web address] Anesthesia Postop Eval I: Summary Notes Anesthesia Complication No 08/17/25 15:00 BROODMARE [email or web address] Anesthesia Complication Comment: Post-operative progress note Anesthesia: Postop Eval II Evaluation Mental status: Awake Pain Level: 0 nausea: No Vomiting: No
[2025-08-17] MEDS: Ensure Surgery 237 ML LIQUID PO (16:39)
[2025-08-17 19:58] LABS: Hematocrit 28.9 % (37-47); Hemoglobin 9.0 g/dL (12.0-15.0)
[2025-08-17] MEDS: Senna/Docusate Sodium 1 Tablet 2 TABLET PO (21:33)
[2025-08-17] MEDS: 0.9% Normal Saline (250mL Bag) 250 ML 15 ML IV (21:33)
[2025-08-17] MEDS: Cefazolin 1 GM/50 ML BAG IV (21:33)
[2025-08-18] VITALS (9 sets, daily range): BP systolic 102–144; BP diastolic 57–81; PULSE 81–105; RESP 15–18; TEMP 36.5–38.1; O2SAT 86–96
[2025-08-18] MEDS: Cefazolin 1 GM/50 ML BAG IV (05:34)
[2025-08-18 05:42] LABS: Hematocrit 34.4 % (37-47); Hemoglobin 11.8 g/dL (12.0-15.0); Immature Granulocytes Count 0.070 X10^3/uL (0.0-0.0); Mean Corp Hgb Conc 34.3 g/dL (32-36); Mean Corpuscular Volume 89.4 fL (81-99); Mean Platelet Vol. 11.0 fl (6.2-12.0); NRBC Flagged by Analyzer 0 % (0-5); Platelet Count 200 K/mm3 (150-450); RBC Distribution Width CV 13.3 % (11.6-14.6); RBC Distribution Width SD 43.8 fl (35.1-43.9); Red Blood Count 3.85 M/mm3 (4.2-5.4); White Blood Count 16.7 K/mm3 (4.4-11.0)
[2025-08-18 06:25] LABS: Anion Gap 13 (5-15); BUN 29 mg/dL (4-19); BUN/Creat Ratio 24.3 RATIO (10-20); Calcium,Total 8.7 mg/dL (7.6-11.0); Carbon Dioxide 21.5 mmol/L (21.0-32.0); Chloride 105 mmol/L (98-108); Estimated Creatinine Clearance 29.06 ml/min (50-250); Glucose 191 mg/dL (70-99); Potassium 3.6 mmol/L (3.3-5.1)
--- NOTE | 2025-08-18 06:56 | PN.ORTHO_ITS ---
Subjective Subjective Patient sitting comfortably in bed upon exam patient. Patient states that she is comfortable right now. Patient is a relatively poor historian due to her history of dementia. Patient states that her pain is adequately controlled at this point. Patient denies any history of nausea, vomiting, dizziness. Patient denies any history of shortness of breath, chest pain, calf pain. Patient denies any new numbness or tingling. Patient denies any adverse events overnight. Objective Data Objective Data Vital Signs: Vital Signs Temp Pulse Resp BP Pulse Ox O2 Del Method O2 Flow Rate 100.6 F H 104 H 18 105/61 96 Nasal Cannula 3 08/18/25 05:23 08/18/25 05:23 08/18/25 05:23 08/18/25 05:23 08/18/25 05:23 08/18/25 05:23 08/18/25 05:23 Oxygen Flow Rate (L/min) 3 Oxygen Delivery Method Nasal Cannula Weight: 62.2 kg Body Mass Index (BMI) 23.5 Intake & Output: Intake and Output for Last 24 Hours 08/16/25 08/17/25 08/18/25 23:59 23:59 23:59 Intake Total 1000 / 1000 758.25 / 758.25 250 / 250 Output Total 1000 / 1000 800 / 800 200 / 200 Balance 0 / 0 -41.75 / -41.75 50 / 50 Lab / Micro Data 08/18/25 05:06 08/18/25 05:06 Labs: Laboratory Results - last 24 hr 08/17/25 19:50: Hgb 9.0 L, Hct 28.9 L 08/18/25 05:06: WBC 16.7 H, RBC 3.85 L, Hgb 11.8 L, Hct 34.4 L, MCV 89.4, MCH 30.6, MCHC 34.3, RDW Std Deviation 43.8, RDW Coeff of Juan 13.3, Plt Count 200, MPV 11.0, Immature Gran % (Auto) 0.400, Neut % (Auto) 86.6 H, Lymph % (Auto) 4.9 L, [place] % (Auto) 7.8, Eos % (Auto) 0.1, Baso % (Auto) 0.2, Absolute Neuts (auto) 14.5 H, Absolute Lymphs (auto) 0.82 L, Nucleated RBC % 0, Sodium 139, Potassium 3.6, Chloride 105, Carbon Dioxide 21.5, Anion Gap 13, BUN 29 H, Creatinine 1.20, Estim Creat Clear Calc 29.06 L, Est GFR (MDRD) Non-Af 44 L, BUN/Creatinine Ratio 24.3 H, Glucose 191 H, Calcium 8.7 Radiography Diagnostic Testing: Radiology Impression Hip X-Ray 08/17/25 07:02 IMPRESSION: Intraoperative imaging provided for right total hip replacement. There is good alignment. Reading Location: [id number] Hip X-Ray 08/17/25 14:53 IMPRESSION: Intact right hip arthroplasty. Reading Location: [id number] Physical Exam Narrative RICKI hose in place bilaterally SCDs in place bilaterally Dressing is clean, dry, intact. Right hip is soft and supple. Dorsiflexion and plantarflexion are performed actively without pain or restriction Sensation intact light touch. Neurovascularly intact overall. Negative Homans bilaterally. Const alert, oriented x3 and no apparent distress Assessment & Plan Assessment/Plan (1) Closed fracture of right hip: PLAN: Status post right hip hemiarthroplasty day 1 1.DVT prophylaxis: Patient will be taking Xarelto for 2 weeks postoperatively. Patient was educated while on Xarelto do not take any anti-inflammatory medications. Patient was educated following the Xarelto?she will be taking aspirin 81 mg twice daily until 4 weeks postoperatively. Patient was educated she would be wearing RICKI hose for 2 weeks postoperatively educating patient that she can take them off for showers and take them off at bedtime and put them back on the morning. 2.Pain medications: Patient is currently on Tylenol and oxycodone per primary care team. Patient states her pain is adequately controlled. Primary care team will continue to manage pain control. 3.Patient is currently on senna for postoperative constipation per primary care team. 4.Incentive spirometer: Patient was encouraged to use incentive spirometer every hour she is awake for the first week to decrease risk of postoperative lung infection. 5.H&H: 11.8/34.4. Vitals currently stable and patient is afebrile. 6.Reactive leukocytosis: White blood cell count currently 16.7. Vitals currently stable and patient is afebrile at this time. Patient did receive Decadron intraoperatively. 7.Dressing: Patient is able to get dressing wet on postop day 1. Patient was educated she can remove her dressing on postop day 5. Patient was educated when she removes her dressing as long as her incision is clean, dry, intact she can leave open to air. Patient was educated to avoid soaking, submerging for 6 weeks postoperatively. Patient was educated in lotions, salves, oils over incision for 6 weeks postoperatively. We will do a wound check at 2 weeks postop in the office and remove sutures. 8. Physical therapy: Patient is currently weightbearing as tolerated with walker. Patient has not yet been up working with physical therapy patient's nurse did report that she got up and was able to stand at the edge of the bed. Patient is to work with physical therapy today. Patient will need physical therapy established prior to discharge. 9.Patient is a follow-up for postoperative instructions. 10.Medicine is involved as primary care team at this time and will continue to manage. 11.Disposition: Patient is okay for discharge from orthopedic standpoint as long as pain maintains adequately controlled, patient works with and does well with physical therapy today, and is okay per primary care team who is medicine. Patient would benefit from a stay at a nursing home facility or transitional care unit as patient lives at home with her , has a history of dementia, and will have ambulatory barriers with using her walker. It would be beneficial for patient to work with physical therapy and Occupational Therapy until she feels comfortable with ambulation at home alone. Patient will continue to be weightbearing as tolerated with walker with physical therapy. Patient will need Xarelto for 2 weeks followed by aspirin 81 mg twice daily for 2 weeks for blood clot control. Pain control be managed by primary care team. Patient will need a 2-week follow-up appointment in office for a wound check and suture removal. Patient will need outpatient physical therapy established.
[2025-08-18] MEDS: Senna/Docusate Sodium 1 Tablet 2 TABLET PO ×2 (08:29→22:58)
[2025-08-18] MEDS: Metoprolol(XL)Succ 25 MG Tablet PO ×2 (08:29→22:59)
[2025-08-18] MEDS: Cholecalciferol (Vit D3) 125 MCG CAPSULE (5,000 UNITS) PO (08:29)
[2025-08-18] MEDS: Polyethylene Glycol 3350 17 GM PACKET PO ×2 (11:05→22:58)
--- NOTE | 2025-08-18 11:31 | CASEMGMT ---
Discharge Planning A list of?SNF providers including quality and resource use data and consistent with the patient's preferred geographic region, medical needs, and insurance network was created in [employer] Guide.? This list was provided to the RN TAISHA. Tessie Reyes, Discharge Planning Asst
--- NOTE | 2025-08-18 11:46 | CASEMGMT ---
Addendum entered by Alexandra Godinez 08/18/25 15:31: DC assistant professor of archaeology notified from pt family via tc that the next choice is [facility]. DC assistant professor of archaeology to send referral. Addendum entered by Alexandra Godinez 08/18/25 14:44: [facility] is unable to accept pt. RN CM into pt room for 2nd and 3rd choice. Family still reviewing stating they called the insurance who gave additional options, one being [facility]. They are aware this is a behavioral unit. They are aware that [facility] is unable to accept pt. They request RN CM come back for choices. Original Note: Noted therapy eval. RN CM into pt room, pt lying in bed in no distress with and two daughters present. Discussed therapy eval and pt feels she needs further skilled therapy prior to returning home. Provided pt and family with SNF list created by dc assistant professor of archaeology. Pt and family state first choice is [facility]. They will review list for 2nd and 3rd choice and RN CM to check back. Referral made to [facility] at this time.
--- NOTE | 2025-08-18 14:16 | NURSING ---
per Luisa Speech therapist, okay for family to be at bedside and assist pt with food/drinking/ meals.
--- NOTE | 2025-08-18 14:36 | PN.HOSP_ITS ---
Reason for Visit Chief Complaint: Fall and right hip pain Objective Data Objective Data Vital Signs: Vital Signs Temp Pulse Resp BP Pulse Ox O2 Del Method O2 Flow Rate 98.4 F 92 16 102/59 L 94 Nasal Cannula 2 08/18/25 08:21 08/18/25 08:29 08/18/25 08:21 08/18/25 08:21 08/18/25 08:21 08/18/25 08:21 08/18/25 11:17 Oxygen Flow Rate (L/min) 2 Oxygen Delivery Method Nasal Cannula Weight: 137 lb 2.04 oz Body Mass Index (BMI) 23.5 Intake & Output: Intake and Output for Last 24 Hours 08/16/25 08/17/25 08/18/25 23:59 23:59 23:59 Intake Total 1000 / 1000 758.25 / 758.25 417.5 / 417.5 Output Total 1000 / 1000 800 / 800 200 / 200 Balance 0 / 0 -41.75 / -41.75 217.5 / 217.5 Lab / Micro Data 08/18/25 05:06 08/18/25 05:06 Labs: Laboratory Results - last 24 hr 08/17/25 19:50: Hgb 9.0 L, Hct 28.9 L 08/18/25 05:06: WBC 16.7 H, RBC 3.85 L, Hgb 11.8 L, Hct 34.4 L, MCV 89.4, MCH 30.6, MCHC 34.3, RDW Std Deviation 43.8, RDW Coeff of Juan 13.3, Plt Count 200, MPV 11.0, Immature Gran % (Auto) 0.400, Neut % (Auto) 86.6 H, Lymph % (Auto) 4.9 L, [place] % (Auto) 7.8, Eos % (Auto) 0.1, Baso % (Auto) 0.2, Absolute Neuts (auto) 14.5 H, Absolute Lymphs (auto) 0.82 L, Nucleated RBC % 0, Sodium 139, Potassium 3.6, Chloride 105, Carbon Dioxide 21.5, Anion Gap 13, BUN 29 H, Creatinine 1.20, Estim Creat Clear Calc 29.06 L, Est GFR (MDRD) Non-Af 44 L, BUN/Creatinine Ratio 24.3 H, Glucose 191 H, Calcium 8.7 Radiography Diagnostic Testing: Radiology Impression Hip X-Ray 08/17/25 07:02 IMPRESSION: Intraoperative imaging provided for right total hip replacement. There is good alignment. Reading Location: [id number] Hip X-Ray 08/17/25 14:53 IMPRESSION: Intact right hip arthroplasty. Reading Location: [address] Physical Exam Narrative Seen and examined. Patient exhausted in the morning after physical therapy. Has not moved bowels for 2 days. Complain of pain over right hip operative region. Had anterior right hemiarthroplasty on 08/17/2023 Physical exam General: Alert, Oriented x3, Cooperative HEENT: Atraumatic, PERRLA, EOMI, Normocephalic. Oral: No Gingival or Mucosal Lesions/ Ulcerations Neck: Supple, No JVD, Negative Carotid Bruits Chest wall/Lungs: Air entry diminished in bilateral lung bases. No crepitation/rhonchi Cardiovascular: Regular rate and rhythm, Normal S1,S2, No M/G/R Abdomen: Bowel Sounds Present, Soft, Non Tender, Non-Distended : Esteves catheter. No renal angle tenderness. No suprapubic tenderness. Extremities: No edema, Capillary Refill Less than 3 Seconds Skin: Right hip surgical dressing is dry and intact. No hematoma/swelling. Musculoskeletal: Mild tenderness over greater trochanter and ischial region. Neurological: Cranial nerves II-XII grossly intact, DTR 2+/4. No acute focal neurological deficit. Psych/Mental Status: Flat affect. Mild dementia Assessment & Plan Assessment/Plan (1) Closed fracture of right hip: PLAN: Status post mechanical fall Discussed with the patient's family at the bedside. Pain control, PT and OT. Patient had BM on 08/16. Bladder and bowel control Dr. Arredondo of orthopedics NSQIP risk factors show that patient is of average risk for serious complication, any complication, above average risk for pneumonia, cardiac complication, VTE, sepsis, UTI, renal failure, readmission and discharged to a nursing or rehab facility and . Most recent vitals BP 113/64, heart rate 89/min. Patient had right hip hemiarthroplasty on 08/17/202508/17: Vitamin D 25-hydroxy 139, serum level high. 08/18: Patient tired after physical therapy. Mild leukocytosis, reactive after surgery. Right hip surgical dressing is dry and clean. H&H dropped from 13.3- 11.8. Does not meet criteria for acute blood loss. Remove Esteves catheter and can replace with external collecting catheter. Stool softener ordered. On pain medication. In the morning blood pressure on the lower side. Antihypertensive medications on hold. Laboratory Results 08/17/25 19:50: Hgb 9.0 L, Hct 28.9 L 08/18/25 05:06: WBC 16.7 H, RBC 3.85 L, Hgb 11.8 L, Hct 34.4 L, MCV 89.4, MCH 30.6, MCHC 34.3, RDW Std Deviation 43.8, RDW Coeff of Juan 13.3, Plt Count 200, MPV 11.0, Immature Gran % (Auto) 0.400, Neut % (Auto) 86.6 H, Lymph % (Auto) 4.9 L, [place] % (Auto) 7.8, Eos % (Auto) 0.1, Baso % (Auto) 0.2, Absolute Neuts (auto) 14.5 H, Absolute Lymphs (auto) 0.82 L, Nucleated RBC % 0, Sodium 139, Potassium 3.6, Chloride 105, Carbon Dioxide 21.5, Anion Gap 13, BUN 29 H, Creatinine 1.20, Estim Creat Clear Calc 29.06 L, Est GFR (MDRD) Non-Af 44 L, BUN/Creatinine Ratio 24.3 H, Glucose 191 H, Calcium 8.7 PLAN: Plan Hypertensive urgency * Likely reactive due to her hip fracture. 08/17: Blood pressure is controlled.Continue home medications including amlodipine and metoprolol succinate and lisinopril 08/18: Blood pressure in the low 100s. Hold antihypertensive medication amlodipine and lisinopril. Mood disorder: Continue with sertraline VTE prophylaxis with SCDs CODE STATUS: Addressed with the patient and her family. Has been verify that she is DNR CCA. Discussed with the family member. DNR CC arrest but CODE STATUS will be on hold till 24 hours postop Charges/Coding Visit Charges Inpatient E&M: 90874 Subs Hosp L2
--- NOTE | 2025-08-18 14:56 | RAD_ITS ---
PROCEDURE: Chest x-ray dated 08/16/2025 08/18/2025 REASON FOR EXAM: SOB/ATELACTASIS, POST OP RIGHT HIP SURGERY TECHNIQUE: Frontal view of the chest. COMPARISON: Chest x-ray dated 08/16/2025 FINDINGS: Hardware: Surgical clips are seen in the right axillary region. Heart: Heart size and configuration are within normal limits. Arteriosclerotic vascular disease of the aorta is noted. Mediastinum: Mediastinal silhouette is within normal limits. Trachea is midline. Pulmonary vasculature is unremarkable. Lungs: There are linear densities identified in both the right and left lung which are similar when compared to the prior exam and most likely representing parenchymal scarring. A trace right pleural effusion is noted and a small left pleural effusion are noted. Adjacent compressive atelectasis of the lung bases is noted. Bones: Spondylosis of the thoracic spine and lumbar spine are noted. RAD/Chest 1 View (Portable) IMPRESSION: Trace right pleural effusion. Small left pleural effusion. Adjacent compressive atelectasis of the lung bases is noted. Linear density seen in both lungs most likely representing parenchymal scars ho wever another consideration would be atelectasis. Arteriosclerotic vascular disease of the aorta. Reading Location: [id number]
[2025-08-18] MEDS: Lactated Ringers 1,000 ML 500 ML IV (15:29)
[2025-08-18] MEDS: 0.9% Saline Lock 10 ML Syringe IV (15:31)
--- NOTE | 2025-08-18 15:55 | CASEMGMT ---
Discharge Planning Referral sent to [facility]. Tessie Reyes DC Planning Asst.
[2025-08-18] MEDS: KCL 20MEQ in D5.45NS 20 MEQ/1,000 ML IV.SOLN. 50 MEQ IV (18:20)
[2025-08-19] VITALS (8 sets, daily range): BP systolic 130–148; BP diastolic 66–78; PULSE 80–93; RESP 16–18; TEMP 36.3–36.9; O2SAT 94–96
[2025-08-19 06:25] LABS: Anion Gap 9 (5-15); BUN 31 mg/dL (4-19); BUN/Creat Ratio 28.6 RATIO (10-20); Calcium,Total 8.6 mg/dL (7.6-11.0); Carbon Dioxide 21.8 mmol/L (21.0-32.0); Chloride 104 mmol/L (98-108); Estimated Creatinine Clearance 32.29 ml/min (50-250); Glucose 146 mg/dL (70-99); Potassium 4.0 mmol/L (3.3-5.1)
[2025-08-19 07:52] LABS: Hematocrit 29.5 % (37-47); Hemoglobin 9.7 g/dL (12.0-15.0); Immature Granulocytes Count 0.070 X10^3/uL (0.0-0.0); Mean Corp Hgb Conc 32.9 g/dL (32-36); Mean Corpuscular Volume 90.5 fL (81-99); Mean Platelet Vol. 11.2 fl (6.2-12.0); NRBC Flagged by Analyzer 0 % (0-5); Platelet Count 167 K/mm3 (150-450); RBC Distribution Width CV 13.5 % (11.6-14.6); RBC Distribution Width SD 44.9 fl (35.1-43.9); Red Blood Count 3.26 M/mm3 (4.2-5.4); White Blood Count 12.5 K/mm3 (4.4-11.0)
--- NOTE | 2025-08-19 09:07 | CASEMGMT ---
BUZZ SUMNER received notification from [facility], they are able to accept. They will start precert today. BUZZ SUMNER notified Pt.
--- NOTE | 2025-08-19 09:42 | PCM.PN.HOSP ---
Reason for Visit Chief Complaint: Fall and right hip pain Objective Data Objective Data Vital Signs: Vital Signs Temp Pulse Resp BP Pulse Ox O2 Del Method O2 Flow Rate 98.5 F 85 16 134/67 H 96 Nasal Cannula 2 08/19/25 05:08 08/19/25 05:08 08/19/25 05:08 08/19/25 05:08 08/19/25 07:04 08/19/25 07:04 08/19/25 07:04 Oxygen Flow Rate (L/min) 2 Oxygen Delivery Method Nasal Cannula Weight: 137 lb 2.04 oz Body Mass Index (BMI) 23.5 Intake & Output: Intake and Output for Last 24 Hours 08/17/25 08/18/25 08/19/25 23:59 23:59 23:59 Intake Total 758.25 / 758.25 1617.5 / 1617.5 Output Total 800 / 800 630 / 630 550 / 550 Balance -41.75 / -41.75 987.5 / 987.5 -550 / -550 Lab / Micro Data 08/19/25 07:18 08/19/25 05:10 Labs: Laboratory Results - last 24 hr 08/19/25 05:10: Sodium 135, Potassium 4.0, Chloride 104, Carbon Dioxide 21.8, Anion Gap 9, BUN 31 H, Creatinine 1.08, Estim Creat Clear Calc 32.29 L, Est GFR (MDRD) Non-Af 50 L, BUN/Creatinine Ratio 28.6 H, Glucose 146 H, Calcium 8.6 08/19/25 07:18: WBC 12.5 H, RBC 3.26 L, Hgb 9.7 L, Hct 29.5 L, MCV 90.5, MCH 29.8, MCHC 32.9, RDW Std Deviation 44.9 H, RDW Coeff of Juan 13.5, Plt Count 167, MPV 11.2, Immature Gran % (Auto) 0.600, Neut % (Auto) 70.1 H, Lymph % (Auto) 13.7 L, [place] % (Auto) 8.7, Eos % (Auto) 6.3 H, Baso % (Auto) 0.6, Absolute Neuts (auto) 8.8 H, Absolute Lymphs (auto) 1.71, Nucleated RBC % 0 Radiography Diagnostic Testing: Radiology Impression Chest X-Ray 08/18/25 14:56 IMPRESSION: Trace right pleural effusion. Small left pleural effusion. Adjacent compressive atelectasis of the lung bases is noted. Linear density seen in both lungs most likely representing parenchymal scars however another consideration would be atelectasis. Arteriosclerotic vascular disease of the aorta. Reading Location: [facility] Physical Exam Narrative Seen and examined. Patient is sleeping. Did not had bowel movement after surgery. Has Esteves catheter. Discussed with the family member present in the room. Had anterior right hemiarthroplasty on 08/17/2023 Physical exam General: Sleeping overnight. Orientation cannot be checked. HEENT: Atraumatic, PERRLA, EOMI, Normocephalic. Oral: No Gingival or Mucosal Lesions/ Ulcerations Neck: Supple, No JVD, Negative Carotid Bruits Chest wall/Lungs: Air entry diminished in bilateral lung bases. No crepitation/rhonchi Cardiovascular: Regular rate and rhythm, Normal S1,S2, No M/G/R Abdomen: Bowel Sounds sluggish, Soft, Non Tender, Non-Distended : Esteves catheter, clear urine. No renal angle tenderness. No suprapubic tenderness. Extremities: No edema, Capillary Refill Less than 3 Seconds Skin: Right hip surgical dressing is dry and intact. No hematoma/swelling. Musculoskeletal: Mild tenderness over greater trochanter and ischial region. Neurological: Cranial nerves II-XII grossly intact, DTR 2+/4. No acute focal neurological deficit. Psych/Mental Status: Flat affect. Mild dementia Assessment & Plan Assessment/Plan (1) Closed fracture of right hip: PLAN: Status post mechanical fall Discussed with the patient's family at the bedside. Pain control, PT and OT. Patient had BM on 08/16. Bladder and bowel control Dr. Arredondo of orthopedics NSQIP risk factors show that patient is of average risk for serious complication, any complication, above average risk for pneumonia, cardiac complication, VTE, sepsis, UTI, renal failure, readmission and discharged to a nursing or rehab facility and . Most recent vitals BP 113/64, heart rate 89/min. Patient had right hip hemiarthroplasty on 08/17/202508/17: Vitamin D 25-hydroxy 139, serum level high. 08/18: Patient tired after physical therapy. Mild leukocytosis, reactive after surgery. Right hip surgical dressing is dry and clean. H&H dropped from 13.3-11.8. Does not meet criteria for acute blood loss. Remove Esteves catheter and can replace with external collecting catheter. Stool softener ordered. On pain medication. In the morning blood pressure on the lower side. Antihypertensive medications on hold. 08/19: Yesterday, after patient had only about 200 mL since morning therefore 1 L Ringer lactate over 2 hours and nutritional support was given. Chest x-ray was done which shows bibasilar atelectasis. Patient needed bowel movement therefore Dulcolax 20 mg daily rectal suppository ordered. On MiraLAX and senna S. Leukocytosis improving Laboratory Results 08/19/25 05:10: Sodium 135, Potassium 4.0, Chloride 104, Carbon Dioxide 21.8, Anion Gap 9, BUN 31 H, Creatinine 1.08, Estim Creat Clear Calc 32.29 L, Est GFR (MDRD) Non-Af 50 L, BUN/Creatinine Ratio 28.6 H, Glucose 146 H, Calcium 8.6 08/19/25 07:18: WBC 12.5 H, RBC 3.26 L, Hgb 9.7 L, Hct 29.5 L, MCV 90.5, MCH 29.8, MCHC 32.9, RDW Std Deviation 44.9 H, RDW Coeff of Juan 13.5, Plt Count 167, MPV 11.2, Immature Gran % (Auto) 0.600, Neut % (Auto) 70.1 H, Lymph % (Auto) 13.7 L, [place] % (Auto) 8.7, Eos % (Auto) 6.3 H, Baso % (Auto) 0.6, Absolute Neuts (auto) 8.8 H, Absolute Lymphs (auto) 1.71, Nucleated RBC % 0 PLAN: Plan Hypertensive urgency Likely reactive due to her hip fracture. 08/17: Blood pressure is controlled.Continue home medications including amlodipine and metoprolol succinate and lisinopril 08/18: Blood pressure in the low 100s. Hold antihypertensive medication amlodipine and lisinopril. 08/19: blood pressure is 134/67. Mood disorder: Continue with sertraline 08/19: Patient has advanced chronic dementia. VTE prophylaxis with SCDs CODE STATUS: Addressed with the patient and her family. Has been verify that she is DNR CCA. Discussed with the family member. DNR CC arrest but CODE STATUS will be on hold till 24 hours postop Charges/Coding Visit Charges Inpatient E&M: 49846 Subs Hosp L2
[2025-08-19] MEDS: Polyethylene Glycol 3350 17 GM PACKET PO (10:43)
[2025-08-19] MEDS: Cholecalciferol (Vit D3) 125 MCG CAPSULE (5,000 UNITS) PO (10:45)
[2025-08-19] MEDS: Senna/Docusate Sodium 1 Tablet 2 TABLET PO (10:45)
[2025-08-19] MEDS: Metoprolol(XL)Succ 25 MG Tablet PO ×2 (10:50→21:18)
[2025-08-19] MEDS: KCL 20MEQ in D5.45NS 20 MEQ/1,000 ML IV.SOLN. 50 MEQ IV (14:02)
--- NOTE | 2025-08-19 14:34 | CHAPLAIN ---
Type of Pastoral Visit _x__ Initial Visit ___ Follow-up Visit ___ On-call Visit ___ General Patient Visit ___ Spiritual Assessment ___ Family Conference ___ Bereavement ___ Rapid Response ___ Code Blue ___ Other (describe below) Pastoral Care Referral From _x__ Patient ___ Family ___ Nurse ___ Physician ___ Ambulatory Service Representative ___ Refractory Specialist ___ Other (describe below) Sacrament/Intervention _x__ Active listening ___ Anointing ___ Worship ___ Bereavement ___ Communion ___ [place]ienna exploration ___ ___ Life review _x__ Prayer ___ Reconciliation ___ Sacrament of Sick _x__ Supportive presence ___ Wedding ___ Other (describe below) Pastoral Comments patient and several family members are in the room; pt repeatedly stated thank you for coming; pt does not request anything in particular; family members are asked about their needs or what is best for the patient; family is attentive and supportive of the patient; family acknowledges that it was a rough morning for the pt; pt states that she is doing well right now; family indicate that they are religion members and when offered a prayer they accept
[2025-08-20 02:10] VITALS: BP 142/71; PULSE 83; RESP 16; TEMP 36.9; O2SAT 93
[2025-08-20 07:07] VITALS: O2SAT 95
[2025-08-20 08:00] VITALS: BP 133/68; PULSE 84; RESP 16; TEMP 36.6; O2SAT 94
[2025-08-20 10:00] VITALS: RESP 18
[2025-08-20 10:27] VITALS: BP 153/74; PULSE 84
[2025-08-20] MEDS: Metoprolol(XL)Succ 25 MG Tablet PO (10:27)
[2025-08-20] MEDS: Cholecalciferol (Vit D3) 125 MCG CAPSULE (5,000 UNITS) PO (10:27)
[2025-08-20] MEDS: Senna/Docusate Sodium 1 Tablet 2 TABLET PO (10:28)
--- NOTE | 2025-08-20 11:30 | PCM.TXEXTCAR ---
Diet Diet Order/Speech Therapy: INPATIENT Hospital Diet / Speech Therapy Order(s) 08/17/25 16:11 Diet: Regular - General Food consistency:: Easy to Chew Liquid Consistency:: Regular/Thin Type of Dietary Supplement:: Magic Cup Dessert Diet Comments: Magic cup with lunch and dinner Speech Therapy Comments: Direct sup, family ok to supervise, oral care after meals d/t pocketing Routine Orders/Code Status Suppository Type: Dulcolax 10mg Suppository Frequency: Daily PRN DC O2, CPAP, BIPAP needs Home O2 Discharge instructions: No Wound(s) rt hip: Wound Type: Surgical Incision Therapies Extremity Affected:: Bilateral Lower Physical Therapy: Eval and Treat Occupational Therapy: Eval and Treat Speech Therapy: Eval and Treat Problem/Diagnosis (1) Closed fracture of right hip: Status: Acute Code(s): S72.001A - Fracture of unspecified part of neck of right femur, initial encounter for closed fracture Plan: Status post mechanical fall Discussed with the patient's family at the bedside. Pain control, PT and OT. Patient had BM on 08/16. Bladder and bowel control Dr. Arredondo of orthopedics NSQIP risk factors show that patient is of average risk for serious complication, any complication, above average risk for pneumonia, cardiac complication, VTE, sepsis, UTI, renal failure, readmission and discharged to a nursing or rehab facility and . Most recent vitals BP 113/64, heart rate 89/min. Patient had right hip hemiarthroplasty on 08/17/202508/17: Vitamin D 25-hydroxy 139, serum level high. 08/18: Patient tired after physical therapy. Mild leukocytosis, reactive after surgery. Right hip surgical dressing is dry and clean. H&H dropped from 13.3-11.8. Does not meet criteria for acute blood loss. Remove Esteves catheter and can replace with external collecting catheter. Stool softener ordered. On pain medication. In the morning blood pressure on the lower side. Antihypertensive medications on hold. 08/19: Yesterday, after patient had only about 200 mL since morning therefore 1 L Ringer lactate over 2 hours and nutritional support was given. Chest x-ray was done which shows bibasilar atelectasis. Patient needed bowel movement therefore Dulcolax 20 mg daily rectal suppository ordered. On MiraLAX and senna S. Leukocytosis improving Laboratory Results 08/19/25 05:10: Sodium 135, Potassium 4.0, Chloride 104, Carbon Dioxide 21.8, Anion Gap 9, BUN 31 H, Creatinine 1.08, Estim Creat Clear Calc 32.29 L, Est GFR (MDRD) Non-Af 50 L, BUN/Creatinine Ratio 28.6 H, Glucose 146 H, Calcium 8.6 08/19/25 07:18: WBC 12.5 H, RBC 3.26 L, Hgb 9.7 L, Hct 29.5 L, MCV 90.5, MCH 29.8, MCHC 32.9, RDW Std Deviation 44.9 H, RDW Coeff of Juan 13.5, Plt Count 167, MPV 11.2, Immature Gran % (Auto) 0.600, Neut % (Auto) 70.1 H, Lymph % (Auto) 13.7 L, [place] % (Auto) 8.7, Eos % (Auto) 6.3 H, Baso % (Auto) 0.6, Absolute Neuts (auto) 8.8 H, Absolute Lymphs (auto) 1.71, Nucleated RBC % 0 Plan Hypertensive urgency Likely reactive due to her hip fracture. 08/17: Blood pressure is controlled.Continue home medications including amlodipine and metoprolol succinate and lisinopril 08/18: Blood pressure in the low 100s. Hold antihypertensive medication amlodipine and lisinopril. 08/19: blood pressure is 134/67. Mood disorder: Continue with sertraline 08/19: Patient has advanced chronic dementia. VTE prophylaxis with SCDs CODE STATUS: Addressed with the patient and her family. Has been verify that she is DNR CCA. Discussed with the family member. DNR CC arrest but CODE STATUS will be on hold till 24 hours postop Allergies/Procedures Done in Hospital Allergies No Known Allergies Allergy (Verified 08/16/25 15:11) Type of Care/Length of Stay Estimated LOS: Convalescent Care Less Than 30 days Type of Care Needed: Skilled Rehab Potential: Good Prognosis: Good Additional Orders/Day of Discharge Day of Discharge: 08/20/25 Dietary and Speech Recommendations Dietitian Recommendations/Changes: Continue Regular -easy to chew diet to optimize oral intakes. Will discontinue Ensure Surgery TID with meals d/t pt refusing. Will order magic cup with lunch and dinner to supplement PO intakes. Discharge Plan Admission Admit Date/Time: 08/16/25 16:53 Primary Reason for Your Visit: Right hip fracture Attending Provider: Luciano Marshall Primary Care Provider: Lawson Ramos Consulting Providers: Avila Arredondo; Lauri Perez Discharge Orders/Prescriptions Prescriptions: New acetaminophen 500 mg Tablet 1,000 mg PO Q8 Qty: 0 0RF sennosides-docusate sodium [Stimulant Laxative Plus] 8.6-50 mg Tablet 2 tab PO BID PRNQty: 0 0RF oxycodone 5 mg Tablet 2.5 mg PO Q4H PRN PRN (Reason: Pain Score 4-10) Qty: 0 0RF Xarelto 10 mg Tablet 10 mg PO DAILY@0600 28 Days Qty: 28 0RF Continued cephalexin 250 mg capsule 250 mg PO MOWEFR Patient Comments: MoWeFri, 1 daily cyanocobalamin (vitamin B-12) 1,000 mcg/mL solution 1,000 mcg IM QMONTH Patient Comments: FAMILY AND PT UNAWARE OF LAST INJECTION. WILL CALL IN TO GIVE LAST DOSE AT A LATER TIME krill oil 500 mg capsule 2,000 mg PO DAILY amlodipine 5 mg Tablet 5 mg PO DAILY 30 Days Qty: 30 0RF lisinopril 10 mg Tablet 10 mg PO DAILY 30 Days Qty: 30 0RF metoprolol succinate 25 mg tablet extended release 24 hr 25 mg PO BID sertraline 100 mg tablet 50 mg PO DAILY Changed methocarbamol 500 mg tablet 500 mg PO DAILY PRN (Reason: muscle spasm) Qty: 7 0RF Held cholecalciferol (vitamin D3) [Vitamin D3] 125 mcg (5,000 unit) Tablet 125 mcg PO DAILY Hold Instructions: Hold vitamin D as vitamin D 25-hydroxy is high 139 ng/mL Discontinued turmeric 1 cap PO DAILY Patient Comments: PT AND FAMILY UNAWARE OF STRENGTH Referrals / Follow Up: Lawson Ramos DO [Primary Care Provider, Medical] Avila Arredondo MD [Med Staff - Active Staff, Orthopedics] - Within 2 Weeks Disposition Disposition (needs filled in before D/C Order can be placed): [facility]
--- NOTE | 2025-08-20 12:00 | CASEMGMT ---
Sent [facility] todays PT, OT and ST note via [facility] at this time.
[2025-08-20 12:31] LABS: Hematocrit 30.6 % (37-47); Hemoglobin 10.1 g/dL (12.0-15.0); Immature Granulocytes Count 0.100 X10^3/uL (0.0-0.0); Mean Corp Hgb Conc 33.0 g/dL (32-36); Mean Corpuscular Volume 90.8 fL (81-99); Mean Platelet Vol. 10.9 fl (6.2-12.0); NRBC Flagged by Analyzer 0 % (0-5); Platelet Count 242 K/mm3 (150-450); RBC Distribution Width CV 13.6 % (11.6-14.6); RBC Distribution Width SD 45.3 fl (35.1-43.9); Red Blood Count 3.37 M/mm3 (4.2-5.4); White Blood Count 10.5 K/mm3 (4.4-11.0)
--- NOTE | 2025-08-20 12:35 | DS.PCM_ITS ---
Providers Date of Admission: 08/16/25 Date of Discharge: 08/20/25 Primary Care Physician: Dr. Lawson Ramos, DO Consultations 08/16/25 17:45 Consult: Orthopedics Routine Consulting Provider: Avila Arredondo Reason for Consult: right hip fxr EMERGENT Consult: No MD Notified: Yes Date Notified: 08/16/25 Time Notified: 16:57 Method of Notification: ED Physician Initiated Reason For Visit: RIGHT HIP FRACTURE Diagnosis Discharge Diagnosis (1) Closed fracture of right hip: Status: Acute Code(s): S72.001A - Fracture of unspecified part of neck of right femur, initial encounter for closed fracture Plan: Status post mechanical fall Discussed with the patient's family at the bedside. Pain control, PT and OT. Patient had BM on 08/16. Bladder and bowel control Dr. Arredondo of orthopedics [facility] risk factors show that patient is of average risk for serious complication, any complication, above average risk for pneumonia, cardiac complication, VTE, sepsis, UTI, renal failure, readmission and discharged to a nursing or rehab facility and . Most recent vitals BP 113/64, heart rate 89/min. Patient had right hip hemiarthroplasty on 08/17/202508/17: Vitamin D 25-hydroxy 139, serum level high. 08/18: Patient tired after physical therapy. Mild leukocytosis, reactive after surgery. Right hip surgical dressing is dry and clean. H&H dropped from 13.3- 11.8. Does not meet criteria for acute blood loss. Remove Esteves catheter and can replace with external collecting catheter. Stool softener ordered. On pain medication. In the morning blood pressure on the lower side. Antihypertensive medications on hold. 08/19: Yesterday, after patient had only about 200 mL since morning therefore 1 L Ringer lactate over 2 hours and nutritional support was given. Chest x-ray was done which shows bibasilar atelectasis. Patient needed bowel movement therefore Dulcolax 20 mg daily rectal suppository ordered. On MiraLAX and senna S. Leukocytosis improving 08/20: Patient is awake and alert. She participated in physical therapy today. She had good bowel movement. Hemodynamically her blood pressure and heart rate in acceptable range. Patient had pre-CERT and be discharged Laboratory Results 08/19/25 05:10: Sodium 135, Potassium 4.0, Chloride 104, Carbon Dioxide 21.8, Anion Gap 9, BUN 31 H, Creatinine 1.08, Estim Creat Clear Calc 32.29 L, Est GFR (MDRD) Non-Af 50 L, BUN/Creatinine Ratio 28.6 H, Glucose 146 H, Calcium 8.6 08/19/25 07:18: WBC 12.5 H, RBC 3.26 L, Hgb 9.7 L, Hct 29.5 L, MCV 90.5, MCH 29.8, MCHC 32.9, RDW Std Deviation 44.9 H, RDW Coeff of Juan 13.5, Plt Count 167, MPV 11.2, Immature Gran % (Auto) 0.600, Neut % (Auto) 70.1 H, Lymph % (Auto) 13.7 L, [place] % (Auto) 8.7, Eos % (Auto) 6.3 H, Baso % (Auto) 0.6, Absolute Neuts (auto) 8.8 H, Absolute Lymphs (auto) 1.71, Nucleated RBC % 0 Plan Hypertensive urgency * Likely reactive due to her hip fracture. 08/17: Blood pressure is controlled.Continue home medications including amlodipine and metoprolol succinate and lisinopril 08/18: Blood pressure in the low 100s. Hold antihypertensive medication amlodipine and lisinopril. 08/19: blood pressure is 134/67. 08/12: Blood pressure 133/68, 153/74. Continue home medications. Mood disorder: Continue with sertraline 08/19: Patient has advanced chronic dementia. VTE prophylaxis with SCDs 08/20 discharged on 4 weeks of Xarelto 10 mg daily. CODE STATUS: Addressed with the patient and her family. Has been verify that she is DNR CCA. Discussed with the family member. Discharge medication reconciliation done. Discharge follow-up instructions completed. Discharge process discussed with the patient and all questions were answered to patient's satisfaction. Follow with PCP in 1 to 2 weeks Total time spent, exact 35 minutes on discharge meds reconciliation, examination, coordination of care with nurses and ancillary staff, review of imaging and blood test and discussion with the patient on follow-up instructions. Medications at Discharge Home Medications cholecalciferol (vitamin D3) 125 mcg (5,000 unit) tablet (Vitamin D3) 125 mcg PO DAILY suppliment 07/15/22 Held on 08/20/25. Instructions: Hold vitamin D as vitamin D 25-hydroxy is high 139 ng/mL cephalexin 250 mg capsule 250 mg PO MOWEFR UTI 02/26/24 cyanocobalamin (vitamin B-12) 1,000 mcg/mL injection solution 1,000 mcg IM QMONTH SUPPLEMENT 02/26/24 krill oil 500 mg capsule 2,000 mg PO DAILY SUPPLEMENT 02/26/24 amlodipine 5 mg tablet 5 mg PO DAILY HTN 30 days #30 tabs 02/27/24 lisinopril 10 mg tablet 10 mg PO DAILY HTN 30 days #30 tabs 02/27/24 metoprolol succinate 25 mg tablet,extended release 24 hr 25 mg PO BID HTN 08/16/25 sertraline 100 mg tablet 50 mg PO DAILY MOOD 08/16/25 acetaminophen 500 mg tablet 1,000 mg (2 x 500 mg) PO Q8 #0 tabs 08/20/25 methocarbamol 500 mg tablet 500 mg PO DAILY PRN muscle spasm #7 tabs 08/20/25 oxycodone 5 mg tablet 2.5 mg (1/2 x 5 mg) PO Q8H PRN PRN Pain Score 6-10 3 days #7 tabs 08/20/25 rivaroxaban 10 mg tablet (Xarelto) 10 mg PO DAILY@0600 28 days #28 tabs 08/20/25 sennosides 8.6 mg-docusate sodium 50 mg tablet (Stimulant Laxative Plus) 2 tab PO BID PRN #0 tabs 08/20/25 Hospital Course Summary of Care Provided Hospital Course: Laboratory Results 08/20/25 11:58: WBC 10.5, RBC 3.37 L, Hgb 10.1 L, Hct 30.6 L, MCV 90.8, MCH 30.0, MCHC 33.0, RDW Std Deviation 45.3 H, RDW Coeff of Juan 13.6, Plt Count 242, MPV 10.9, Immature Gran % (Auto) 0.900, Neut % (Auto) 71.6 H, Lymph % (Auto) 14.5 L, [place] % (Auto) 6.9, Eos % (Auto) 5.6 H, Baso % (Auto) 0.5, Absolute Neuts (auto) 7.5, Absolute Lymphs (auto) 1.53, Nucleated RBC % 0, Physical Exam Narrative Seen and examined. Patient sitting on the chair. Awake and alert. She states she does not have pain over her right hip. Discontinue Esteves catheter Had anterior right hemiarthroplasty on 08/17/2023 Physical exam General: Awake and alert. On baseline. Dementia HEENT: Atraumatic, PERRLA, EOMI, Normocephalic. Oral: No Gingival or Mucosal Lesions/ Ulcerations Neck: Supple, No JVD, Negative Carotid Bruits Chest wall/Lungs: Air entry equal in bilateral lung bases. No crepitation/rhonchi Cardiovascular: Regular rate and rhythm, Normal S1,S2, No M/G/R Abdomen: Bowel Sounds sluggish, Soft, Non Tender, Non-Distended : Esteves catheter, clear urine. No renal angle tenderness. No suprapubic tenderness. Extremities: No edema, Capillary Refill Less than 3 Seconds Skin: Right hip surgical dressing is dry and intact. No hematoma/swelling. Musculoskeletal: Mild tenderness over greater trochanter and ischial region. Neurological: Cranial nerves II-XII grossly intact, DTR 2+/4. No acute focal neurological deficit. Psych/Mental Status: Flat affect. Mild dementia Weight / BMI Weight Weight: 137 lb 2.04 oz Body Mass Index (BMI) 23.5 ABG / Lab / Microbiology Data 08/20/25 11:58 08/19/25 05:10 Laboratory: Laboratory Results - last 24 hr 08/20/25 11:58: WBC 10.5, RBC 3.37 L, Hgb 10.1 L, Hct 30.6 L, MCV 90.8, MCH 30.0, MCHC 33.0, RDW Std Deviation 45.3 H, RDW Coeff of Juan 13.6, Plt Count 242, MPV 10.9, Immature Gran % (Auto) 0.900, Neut % (Auto) 71.6 H, Lymph % (Auto) 14.5 L, [place] % (Auto) 6.9, Eos % (Auto) 5.6 H, Baso % (Auto) 0.5, Absolute Neuts (auto) 7.5, Absolute Lymphs (auto) 1.53, Nucleated RBC % 0 D/C Instructions DC O2, CPAP, BIPAP Needs Home O2 Discharge instructions: No Meaningful Use Info Meaningful Use Meaningful Use Diagnoses (Choose all that apply): None applicable Discharge Plan Admission Admit Date/Time: 08/16/25 16:53 Primary Reason for Your Visit: Right hip fracture Attending Provider: Luciano Marshall Primary Care Provider: Lawson Ramos Consulting Providers: Avila Arredondo; Lauri Perez Discharge Orders/Prescriptions Prescriptions: New acetaminophen 500 mg Tablet 1,000 mg PO Q8 Qty: 0 0RF sennosides-docusate sodium [Stimulant Laxative Plus] 8.6-50 mg Tablet 2 tab PO BID PRNQty: 0 0RF Xarelto 10 mg Tablet 10 mg PO DAILY@0600 28 Days Qty: 28 0RF oxycodone 5 mg tablet 2.5 mg PO Q8H PRN PRN (Reason: Pain Score 6-10) 3 Days Qty: 7 0RF Continued cephalexin 250 mg capsule 250 mg PO MOWEFR Patient Comments: MoWeFri, 1 daily cyanocobalamin (vitamin B-12) 1,000 mcg/mL solution 1,000 mcg IM QMONTH Patient Comments: FAMILY AND PT UNAWARE OF LAST INJECTION. WILL CALL IN TO GIVE LAST DOSE AT A LATER TIME krill oil 500 mg capsule 2,000 mg PO DAILY amlodipine 5 mg Tablet 5 mg PO DAILY 30 Days Qty: 30 0RF lisinopril 10 mg Tablet 10 mg PO DAILY 30 Days Qty: 30 0RF metoprolol succinate 25 mg tablet extended release 24 hr 25 mg PO BID sertraline 100 mg tablet 50 mg PO DAILY Changed methocarbamol 500 mg tablet 500 mg PO DAILY PRN (Reason: muscle spasm) Qty: 7 0RF Held cholecalciferol (vitamin D3) [Vitamin D3] 125 mcg (5,000 unit) Tablet 125 mcg PO DAILY Hold Instructions: Hold vitamin D as vitamin D 25-hydroxy is high 139 ng/mL Discontinued turmeric 1 cap PO DAILY Patient Comments: PT AND FAMILY UNAWARE OF STRENGTH Referrals / Follow Up: Lawson Ramos DO [Primary Care Provider, Medical] Avila Arredondo MD [Med Staff - Active Staff, Orthopedics] - Within 2 Weeks Disposition Disposition (needs filled in before D/C Order can be placed): Longterm Facility Charges/Coding Visit Charges Inpatient E&M: 21854 Disch Hosp >30min
--- NOTE | 2025-08-20 12:46 | PHA.DC.MR.R ---
Pharmacy [place] Med Reconciliation Pharmacy Service has performed discharge medication reconciliation for this patient. The patient's discharge medication list was reviewed for discrepancies and discrepancies were resolved. Medications at Discharge Home Medications cholecalciferol (vitamin D3) 125 mcg (5,000 unit) tablet (Vitamin D3) 125 mcg PO DAILY suppliment 05/25/22 Held on 08/20/25. Instructions: Hold vitamin D as vitamin D 25-hydroxy is high 139 ng/mL cephalexin 250 mg capsule 250 mg PO MOWEFR UTI 02/26/24 cyanocobalamin (vitamin B-12) 1,000 mcg/mL injection solution 1,000 mcg IM QMONTH SUPPLEMENT 02/26/24 krill oil 500 mg capsule 2,000 mg PO DAILY SUPPLEMENT 02/26/24 amlodipine 5 mg tablet 5 mg PO DAILY HTN 30 days #30 tabs 02/27/24 lisinopril 10 mg tablet 10 mg PO DAILY HTN 30 days #30 tabs 02/27/24 metoprolol succinate 25 mg tablet,extended release 24 hr 25 mg PO BID HTN 08/16/25 sertraline 100 mg tablet 50 mg PO DAILY MOOD 08/16/25 acetaminophen 500 mg tablet 1,000 mg (2 x 500 mg) PO Q8 #0 tabs 08/20/25 methocarbamol 500 mg tablet 500 mg PO DAILY PRN muscle spasm #7 tabs 08/20/25 oxycodone 5 mg tablet 2.5 mg (1/2 x 5 mg) PO Q8H PRN PRN Pain Score 6-10 3 days #7 tabs 08/20/25 rivaroxaban 10 mg tablet (Xarelto) 10 mg PO DAILY@0600 28 days #28 tabs 08/20/25 sennosides 8.6 mg-docusate sodium 50 mg tablet (Stimulant Laxative Plus) 2 tab PO BID PRN #0 tabs 08/20/25
[2025-08-20 13:11] LABS: Anion Gap 8 (5-15); BUN 25 mg/dL (4-19); BUN/Creat Ratio 30.6 RATIO (10-20); Calcium,Total 8.6 mg/dL (7.6-11.0); Carbon Dioxide 22.9 mmol/L (21.0-32.0); Chloride 107 mmol/L (98-108); Estimated Creatinine Clearance 43.59 ml/min (50-250); Glucose 141 mg/dL (70-99); Potassium 4.4 mmol/L (3.3-5.1)
--- NOTE | 2025-08-20 13:15 | CASEMGMT ---
Precert received, pt is medically ready for dc. 7000 completed. Signed med list and rx uploaded to [facility] to [facility] as well as dc instructions. Copies made for chart. Transport set up via [facility] for 2pm. Updated pt nurse, pt dtr who is present in room and pt. Pt dtr states she will contact other family. Plan: [facility] under skilled level of care.
[2025-08-20 13:43] VITALS: BP 113/63; PULSE 86; RESP 18; TEMP 36.3; O2SAT 94
== END 2025-08-20 14:11 | disposition skilled nursing facility (03) | DRG 522 ==
LOC: ED 17:15 → MS3 17:23
PROVIDERS: Specialist; Emergency Provider Emergency Medicine; PCP Student in an Organized Health Care Education/Training Program; Visit Provider Internal Medicine
PROC: 0SRR01Z Replacement of Right Hip Joint, Femoral Surface with Metal Synthetic Substitute, Open Approach (ICD-10-PCS; CPT 27125; principal; 2025-08-17 13:40)
DX: S72.001A Fracture of unspecified part of neck of right femur, initial encounter for closed fracture (principal); J98.11 Atelectasis; I16.0 Hypertensive urgency; Z66 Do not resuscitate; G30.9 Alzheimer's disease, unspecified; F39 Unspecified mood [affective] disorder; F02.80 Dementia in other diseases classified elsewhere, unspecified severity, without behavioral disturbance, psychotic disturbance, mood disturbance, and anxiety; W19.XXXA Unspecified fall, initial encounter; I10 Essential (primary) hypertension; M81.0 Age-related osteoporosis without current pathological fracture; Z86.16 Personal history of COVID-19; Z85.3 Personal history of malignant neoplasm of breast
CPT/HCPCS: 36415; 51702; 71045; 72170; 73502; 73552; 76000; 80048; 80053; 81001; 82306; 85014; 85018; 85025; 86850; 86900; 86901; 88307; 88311; 92526; 92610; 93005; 97163; 97166; 97530; 97535; 99285; C1776; A4216; J2405

== ENCOUNTER → 2025-08-30 | Outpatient (REF) | payer OTHER, SELFPAY ==
[2025-08-30 08:21] LABS: Hematocrit 29.3 % (37-47); Hemoglobin 9.6 g/dL (12.0-15.0); Mean Corp Hgb Conc 32.8 g/dL (32-36); Mean Corpuscular Volume 94.8 fL (81-99); Mean Platelet Vol. 9.3 fl (6.2-12.0); Platelet Count 513 K/mm3 (150-450); RBC Distribution Width CV 15.3 % (11.6-14.6); RBC Distribution Width SD 52.2 fl (35.1-43.9); Red Blood Count 3.09 M/mm3 (4.2-5.4); White Blood Count 8.0 K/mm3 (4.4-11.0)
[2025-08-30 08:45] LABS: Anion Gap 10 (5-15); BUN 16 mg/dL (4-19); BUN/Creat Ratio 19.3 RATIO (10-20); Calcium,Total 8.6 mg/dL (7.6-11.0); Carbon Dioxide 24.7 mmol/L (21.0-32.0); Chloride 107 mmol/L (98-108); Glucose 106 mg/dL (70-99); Potassium 4.0 mmol/L (3.3-5.1)
[2025-08-30 09:14] LABS: Vitamin B12 2699 pg/mL (180-914)
== END ==
LOC: OLS.WCC 07:15
PROVIDERS: PCP Student in an Organized Health Care Education/Training Program; Visit Provider Family Medicine
DX: Z00.00 Encounter for general adult medical examination without abnormal findings (principal)
CPT/HCPCS: 36415; 80048; 82607; 85027